=== PATIENT | female | born 1965 | race Caucasian/White ===

== ENCOUNTER → 2018-06-16 12:06 | Outpatient (CLI) | payer SELFPAY ==
--- NOTE | 2018-06-16 12:19 | RAD_ITS ---
STUDY: X-RAY - THORACIC SPINE REASON FOR EXAM: Female, 53 years old. Left-sided upper back pain TECHNIQUE: 3 view(s) of the thoracic spine were obtained. COMPARISON: MRI thoracic spine of May 31, 2014 FINDINGS: Normal kyphosis of the thoracic spine. There is no substantial scoliosis. There is multilevel endplate spondylosis of the thoracic vertebrae. There is multilevel disc space narrowing of the thoracic spine. Degree of disc space narrowing and spondylosis increased since prior MRI. The soft tissue structures are unremarkable. RAD/Thoracic Spine 3 Views IMPRESSION: Multilevel degenerative disc disease and spondylosis, worse since the prior MRI of 2014 Electronically Signed: Antony Ventura MD at 7:55 EST , Service support ,
== END ==
PROVIDERS: Family Provider Internal Medicine; PCP Internal Medicine; Visit Provider Internal Medicine
DX: R10.9 Unspecified abdominal pain (principal)
CPT/HCPCS: 72072

== ENCOUNTER → 2018-06-23 17:05 | Outpatient (CLI) | payer SELFPAY ==
--- NOTE | 2018-06-23 17:10 | CT_ITS ---
STUDY: CT ABDOMEN AND PELVIS WITHOUT CONTRAST REASON FOR EXAM: Female, 53 years old. Left flank pain RADIATION DOSAGE (If Supplied By Facility): CTDIvol = ( 14.80 ) mGy, DLP = ( 740.85 ) mGycm TECHNIQUE: Transaxial images were obtained from the dome of the diaphragm to the symphysis pubis without oral contrast, and without intravenous contrast. Sagittal and coronal images were reconstructed. Individualized dose optimization techniques were used for this CT. COMPARISON: None. FINDINGS: The lung bases are clear. The liver is normal. No dilated intrahepatic biliary radicles. The gallbladder is normal with no calcifications within it. There is no pericholecystic fluid collection or streakiness The spleen is normal. The pancreas is normal. Both adrenals are normal. The kidneys are normal with no masses, calculi or hydronephrosis The stomach is normal. There is no bowel distention, acute appendicitis or diverticulitis. No constricting lesions are seen in large bowel. The abdominal wall is intact with no hernias. There is no ascites or any free intraperitoneal air. No indication of epiploic appendagitis The vascular structures in the retroperitoneum are normal. There is no retrocrural, retroperitoneal or mesenteric adenopathy. Multilevel degenerative changes of the lumbosacral spine. The urinary bladder is normal.--The uterus is normal. There are no abnormal adnexal masses.. There is no inguinal or pelvic adenopathy. There is no inguinal hernia. . CT/Abdomen/Pelvis without Cont IMPRESSION: No acute findings in the abdomen or pelvis. Specifically there is no acute appendicitis or diverticulitis and no hydronephrosis or renal calculi Electronically Signed: Jadon Leo MD at 7:51 EST Tel , Service support ,
== END ==
LOC: CT 17:08
PROVIDERS: Family Provider Internal Medicine; PCP Internal Medicine; Referring Provider Internal Medicine; Visit Provider Internal Medicine
DX: R10.9 Unspecified abdominal pain (principal)
CPT/HCPCS: 74176

== ENCOUNTER → 2018-07-18 16:53 | Outpatient (CLI) | payer SELFPAY ==
--- NOTE | 2018-07-18 17:30 | MRI_ITS ---
STUDY: MRI THORACIC SPINE WITHOUT CONTRAST REASON FOR EXAM: Female, 53 years old. Left flank pain and left back pain for 5 years TECHNIQUE: Standardized fat and water weighted pulse sequences were obtained in the sagittal and axial planes. COMPARISON: Radiographs 06/16/2018 FINDINGS: Normal kyphosis of the thoracic spine. There is no substantial scoliosis. T1-2, T2-3, T3-4, T4-5, T5-6, T7-8, T8-9, T9-10: Normal endplates. Normal disc hydration, heights and morphology of the corresponding intervertebral discs. Normal central canal and intervertebral neural foramina at the corresponding levels. At T6-7, disc osteophyte complex is present with mild central canal stenosis. At T10-11, disc osteophyte complex is present with mild central canal stenosis. At T11-12, disc osteophyte complex is present without compressive sequelae. Syringohydromyelia is noted. This measures 3 mm in width and is located in the central cord extending from the T6-7 level to the T8 level. No associated cord expansion. A second syrinx is identified extending from the T11 level to the T12-L1 level measuring up to 2 mm in width without expansion. Normal conus medullaris that terminates at the L1 level. The soft tissue structures are unremarkable. 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 Consider correlation with postcontrast images to characterize further. Multilevel degenerative disease as described. No evidence of nerve root impingement. Electronically Signed: Juan F Gonzalez MD at 22:35 EST Tel , Service support ,
== END ==
LOC: MRI 16:56
PROVIDERS: Family Provider Internal Medicine; PCP Internal Medicine; Referring Provider Internal Medicine; Visit Provider Internal Medicine
DX: R10.9 Unspecified abdominal pain (principal)
CPT/HCPCS: 72146

== ENCOUNTER → 2018-09-30 | Outpatient (CLI) | payer OTHER, SELFPAY ==
[2017-06-09 12:10] VITALS: BMI 38.0
--- NOTE | 2018-09-30 10:27 | EKG12_ITS ---
Test Reason : PRE OP Blood Pressure : / mmHG Vent. Rate : 064 BPM Atrial Rate : 064 BPM P-R Int : 192 ms QRS Dur : 084 ms QT Int : 408 ms P-R-T Axes : 058 -04 023 degrees QTc Int : 420 ms Normal sinus rhythm Normal ECG Confirmed by DMITRY MCCLAIN ([id number]), editor publications JEN CORCORAN ([id number]) on 10/02/2018 3:03:06 PM Referred By: Dipak Smith Confirmed By:EAN MCCLAIN
[2018-09-30 11:39] LABS: Hematocrit 40.8 % (37-47); Hemoglobin 13.5 g/dl (12.0-15.0); Mean Corp Hgb Conc 33.1 g/gl (32-36); Mean Corpuscular Hgb 29.7 pg (27.0-32.0); Mean Corpuscular Volume 89.9 fL (81-99); Mean Platelet Vol. 10.8 fl (6.2-12.0); Platelet Count 277 K/mm3 (150-450); RBC Distribution Width CV 12.7 % (11.6-14.6); RBC Distribution Width SD 41.1 fl (35.1-43.9); Red Blood Count 4.54 M/mm3 (4.2-5.4); Scan Indicated on CBC? Y/N NO; White Blood Count 6.7 K/mm3 (4.4-11.0)
[2018-09-30 11:54] LABS: Anion Gap 6 (5-15); BUN 13 mg/dL (7-18); BUN/Creat Ratio 15.9 RATIO (10-20); Calcium,Total 8.7 mg/dL (8.5-10.1); Chloride 107 mmol/L (98-107); Creatinine, Serum 0.82 mg/dL (0.55-1.02); EST Glomerular Filtration Rate 77 mL/min (>60); Est Glom Filt Rate - Afr Amer 93 mL/min (>60); Glucose 78 mg/dL (74-106); Potassium 4.2 mmol/L (3.5-5.1); Sodium Level 143 mmol/L (136-145)
== END | disposition home or self-care (01) ==
LOC: LAB 10:13
PROVIDERS: Family Provider Internal Medicine; PCP Internal Medicine; Referring Provider Physician Assistant Surgical; Visit Provider Physician Assistant Surgical
DX: Z01.818 Encounter for other preprocedural examination (principal); Z01.810 Encounter for preprocedural cardiovascular examination
CPT/HCPCS: 36415; 80048; 85027; 93005

== ENCOUNTER → 2019-01-01 | Outpatient (CLI) | payer OTHER, SELFPAY ==
--- NOTE | 2019-01-01 10:28 | MRI_ITS ---
STUDY: MRI THORACIC SPINE WITH AND WITHOUT CONTRAST REASON FOR EXAM: Female, 53 years old. Follow-up syringomyelia. TECHNIQUE: 18 IV Dotarem was administered for the contrast portion of the examination. Standardized fat and water weighted pulse sequences were obtained in the sagittal and axial planes. COMPARISON: July 18, 2018. FINDINGS: Nonenhancing unchanged size thin syrinx extending from the T5-T8 levels with additional T10-L1 component. Conus medullaris terminates at the L1 level. No new abnormal cord signal. No enhancing vertebral body lesions. No acute fracture, dislocation or osseous destruction. Slightly exaggerated thoracic kyphosis. No significant scoliosis. T1-2, T2-3, T3-4, T4-5, T5-6, T7-8, T8-9, T9-10: No central canal narrowing. No significant neural from narrowing. Mild endplate spondylosis. Mild disc desiccation. T6-7 disc osteophyte complex with mild central canal narrowing. T10-11 disc osteophyte complex with mild central canal narrowing. T11-12 disc osteophyte complex without central canal narrowing. Normal mediastinum. Normal soft tissue structures. MRI/Spine Thoracic W/WO Contrast IMPRESSION: Nonenhancing multisegment thin syrinx Unchanged intervertebral disc disease/degenerative findings Electronically Signed: Phuc Spivey DO at 12:33 EDT Tel , Service support ,
== END | disposition home or self-care (01) ==
LOC: MRI 09:57
PROVIDERS: Family Provider Internal Medicine; PCP Internal Medicine; Referring Provider Neurological Surgery; Visit Provider Neurological Surgery
DX: G95.0 Syringomyelia and syringobulbia (principal)
CPT/HCPCS: 72157; A9575

== ENCOUNTER 2019-06-21 16:12 | Emergency (ER) | payer OTHER, SELFPAY ==
[2019-06-21 16:13] VITALS: BP 144/107; PULSE 100; RESP 16; TEMP 36.6; O2SAT 98; BMI 39.8
--- NOTE | 2019-06-21 16:35 | RAD_ITS ---
STUDY: X-RAY CHEST REASON FOR EXAM: Female, 54 years old. cough, cold symptoms TECHNIQUE: PA and lateral views of the chest. COMPARISON: None. FINDINGS: The lungs are clear and expanded. There is no demonstrated pleural abnormality. Normal size heart. Normal mediastinum and sloan. Normal visualized pulmonary arteries. Normal visualized aortic arch and descending thoracic aorta. There are diffuse degenerative changes of the visualized thoracic spine. Normal visualized ribs, clavicles, and shoulders. There is no demonstrated abnormality of the visualized soft tissue structures of the upper abdomen. RAD/Chest PA and Lateral IMPRESSION: Degenerative changes, as described above. No demonstrated acute cardiopulmonary process. Electronically Signed: Ranjit Davis MD at 17:04 EST , Service support ,
[2019-06-21 16:39] VITALS: BP 144/107; PULSE 100; RESP 16; TEMP 36.6; O2SAT 98
--- NOTE | 2019-06-21 17:13 | ED.DCSUM_ITS ---
- ER Visit Summary Date of Service: 06/21/19 Chief Complaint: Cough History of Present Illness: The patient is a 54 F with a cough for 3 days. Dry. Ribs ache. No fevers, but she does have chills. History of similar symptoms with bronchitis. No history of heart disease or PE. Physical Examination: Afebrile and vital signs unremarkable except for blood pressure 144/107. No acute distress. Lung sounds diminished. Heart regular. Extremities nontender. Skin normal. Test Results: X-rays showed no acute process. Emergency Department Course and Treatment: I suspect this is infectious, likely viral. She was given a pocket prescription for a Z-Eliot if her symptoms persist for a week. She was also given albuterol and Tessalon Perles. Follow-up with primary care for recheck. Treatment Plan: As above Disposition: Discharge Impression: 1. Bronchitis This note was generated with [employer] dictation software. It may contain incorrect words, spelling, and punctuation that were not noted in review of the chart prior to signing ED Disposition - Plan for ED Patient: Referrals: Ivon Solorzano DO [Primary Care Provider] -
--- NOTE | 2019-06-21 17:19 | ED.DEP ---
ED Disposition - Plan for ED Patient: Instructions: BRONCHITIS, Antiobiotic Treatment (Adult) Prescriptions: Azithromycin [Zithromax Z-Eliot] 250 mg PO UD #1 box Prescription Printed Referrals: Ivon Solorzano DO [Primary Care Provider] -
[2019-06-21 17:35] VITALS: BP 145/80; PULSE 99; RESP 18; O2SAT 97
== END 2019-06-21 17:36 | disposition home or self-care (01) ==
LOC: ED 16:32
PROVIDERS: Emergency Provider Emergency Medicine; PCP Internal Medicine
DX: J40 Bronchitis, not specified as acute or chronic (principal); Z79.899 Other long term (current) drug therapy
CPT/HCPCS: 71046; 99283

== ENCOUNTER → 2019-09-05 | Outpatient (CLI) | payer OTHER, SELFPAY ==
[2019-09-05 15:51] LABS: Potassium 4.9 mmol/L (3.5-5.1)
== END | disposition home or self-care (01) ==
LOC: LABSPEC 15:23
PROVIDERS: PCP Internal Medicine; Referring Provider Internal Medicine; Visit Provider Internal Medicine
DX: E87.5 Hyperkalemia (principal)
CPT/HCPCS: 84132

== ENCOUNTER 2022-02-02 06:35 | Emergency (ER) | payer SELFPAY ==
[2022-02-02 06:38] VITALS: BP 151/81; PULSE 85; RESP 16; TEMP 36.3; O2SAT 100; BMI 38.1
--- NOTE | 2022-02-02 06:56 | VDLE_ITS ---
Reason For Study: swelling RIGHT GSV is normal. CFV is compressible, spontaneous, phasic, competent and demonstrates normal augmentation. FV is compressible, spontaneous, phasic, competent and demonstrates normal augmentation. POP V is compressible, spontaneous, phasic, competent and demonstrates normal augmentation. T/P Trunk is compressible. PTV is compressible. RT PerV is compressible. Procedure This is a venous duplex using B-mode, color flow and spectral Doppler. Exam performed portable in ED. The exam was abbreviated due to the COVID 19 protocol. The exam was diagnostic. A preliminary report was called and/or faxed to ED RN. VL/Venous Duplex US, Unilateral Interpretation Summary Deep veins of the right lower extremity are patent and compressible segmentally . There is no evidence of right lower extremity deep vein thrombosis. The right great sapheno us vein appears patent and compressible segmentally. Ordering Physician: Tori Soliz Performed By: Jose M Cartwright RVT
--- NOTE | 2022-02-02 06:56 | RAD_ITS ---
STUDY: X-RAY - RIGHT TIBIA AND FIBULA REASON FOR EXAM: Female, 56 years old patient with leg pain without known trauma. TECHNIQUE: AP and lateral view(s) of the tibia and fibula were obtained. COMPARISON: None. FINDINGS: Normal visualized tibia. Normal visualized fibula. There is no demonstrated acute fracture. There is a small plantar calcaneal spur. The soft tissue structures are unremarkable. RAD/Tibia & Fibula 2 Views IMPRESSION: No evidence for acute fracture or dislocation. Electronically Signed: Anna Foreman MD at 7:41 EDT ,
--- NOTE | 2022-02-02 06:58 | ED.VIS.LOWEX ---
HPI History of Present Illness Chief Complaint: Lower Extremity Injury Informant: patient Narrative Narrative: Patient is a 56-year-old female with history of migraines and colitis presenting with right lower extremity pain, swelling and discomfort. She states she has had discomfort that she describes as a tingling and thumping sensation for the past few months. Its worse at night. Does not seem to be affected by exertion. She also feels at night that her lower leg and foot are cold on the right side compared to the left. She denies associated chest pain, shortness of breath or difficulty breathing. While taking a bath last night she noticed that she had a blotchy intermittent red rash going up her leg. This is what finally triggered her to come to the ER. She denies any history of DVT or PE. Denies any tobacco use or history of it. Does have a family history of blood clots. Denies any chest pain, shortness of breath, fever, chills or unintentional weight change. Has had night sweats but feels that those are normal for her. No other complaints at this time. Denies any medications, foods or other environmental exposures. [facility] Medical History Anemia GERD (gastroesophageal reflux disease) Migraines Severe headache Shoulder pain Home Medications colestipol 1 gram tablet 1 gm PO DAILY 10/25/13 [History Last Taken Unknown] minocycline 100 mg capsule 100 mg PO DAILY PRN ROACIA 10/25/13 [History Last Taken Unknown] propranolol 80 mg capsule,24 hr,extended release 80 mg PO DAILY 10/25/13 [History Last Taken Unknown] Allergy/AdvReac Type Severity Reaction Status Date / Time No Known Allergies Allergy Verified 10/25/13 14:26 Social History Smoking Status: Never smoker ROS ROS ED Constitutional Constitutional ED: Denies chills or fever(s) Eyes Eyes: Denies change in vision Cardiovascular Cardiovascular: Denies chest pain or palpitations Respiratory/Chest Respiratory/Chest: Denies cough Gastrointestinal Gastrointestinal: Denies abdominal pain or nausea Musculoskeletal Musculoskeletal: Reports other Details: right lower leg pain ; Denies arthralgias Integumentary Denies rash Neurologic Neurologic: Reports paresthesias; Denies headache(s) or weakness Psychiatric Psychiatric: Denies anxiety EXAM Physical Exam Const Vital Signs: 02/02/22 06:38 02/02/22 09:55 Temperature 97.3 F L Temperature Source Oral Pulse Rate 85 74 Respiratory Rate 16 16 Blood Pressure 151/81 H 152/97 H Blood Pressure Mean 104 Pulse Ox 100 98 Oxygen Delivery Method Room Air Positive well nourished and well developed General Appearance ED: well developed and NAD HEENT Reports moist mucous membranes Eyes PERRL Neck supple Resp normal respiratory effort and clear to auscultation bilaterally Cardio regular rate, regular rhythm and no murmurs Cardio Narrative: 2+ DP and PT pulses GI non-distended Extremity full ROM Extremity Narrative: Asymmetric swelling of the right calf. Tenderness palpation of the proximal anterior tibia. No palpable cords appreciated.Intact range of motion. Neuro oriented x3, moves all extremities and no sensory deficits noted Skin Skin Narrative: Faint blanching erythema scattered on the right medial calf and into the popliteal fossa MDM MDM MDM Narrative Medical decision making narrative: Patient is evaluated for right lower leg swelling and rash associated with it today. She also has some tingling of her leg. She appears nontoxic in no acute distress. She has good distal pulses. No signs of ischemia of the foot/leg. No overlying cellulitis. Venous duplex obtained which is negative for DVT or superficial thrombophlebitis. Basic labs including CBC, PT/INR and BMP are normal. X-ray of the tib/fibula 2 views inter by myself as well as radiology negative for any acute process. Patient counseled that the cause of her transient rash and leg symptoms is not clear however I think she stable to follow-up outpatient. She is given a referral to vascular. She is counseled return precautions. She verbalizes agreement understands plan. Instructed to take Benadryl at home as needed for the rash as it does sound like it could have been hives as well as ibuprofen as needed for pain/discomfort. Did discuss using compression stockings throughout the day to see if that helps with her symptoms. Lab Data Attestation: I reviewed the patient's lab results. Labs: Laboratory Results - last 24 hr 02/02/22 02/02/22 02/02/22 07:15 07:15 07:15 WBC 6.9 RBC 4.64 Hgb 13.7 Hct 41.3 MCV 89.0 MCH 29.5 MCHC 33.2 RDW Std Deviation 41.7 RDW Coeff of Leandro 12.7 Plt Count 220 MPV 10.8 Immature Gran % (Auto) 0.300 Neut % (Auto) 65.8 Lymph % (Auto) 25.1 Toole % (Auto) 6.5 Eos % (Auto) 1.9 Baso % (Auto) 0.4 Absolute Neuts (auto) 4.6 Absolute Lymphs (auto) 1.74 Nucleated RBC % 0 PT 12.7 INR 1.0 Sodium 142 Potassium 4.1 Chloride 110 H Carbon Dioxide 25.0 Anion Gap 7 BUN 17 Creatinine 0.88 Estim Creat Clear Calc 57.64 Est GFR (MDRD) Af Amer 85 Est GFR (MDRD) Non-Af 70 BUN/Creatinine Ratio 19.3 Glucose 108 H Calcium 8.9 Radiography Diagnostic Testing: Clinical Impression(s) from Imaging Studies Tibia/Fibula X-Ray 02/02/22 06:56 IMPRESSION: No evidence for acute fracture or dislocation. Electronically Signed: Anna Foreman MD at 7:41 EDT Reading Location ID and State: [address] [place] [address] , Service support , Discharge Plan Triage Chief Complaint: Lower Extremity Injury ED Provider: Tori Soliz Dx/Rx/DC Orders Clinical Impression: Localized swelling of right lower leg, Right leg paresthesias Instructions: ED Erythema, ED Peripheral Edema, Unilateral, ED Paraesthesias Prescriptions: No Action minocycline 100 MG capsule 100 mg PO DAILY PRN (Reason: ROACIA) Label Comments: FOR ACNE propranolol 80 MG capsule 80 mg PO DAILY Label Comments: FOR MIGRAINE PREVENTION colestipol 1 GM tablet 1 gm PO DAILY Label Comments: FOR GAS Primary Care Provider: Ivon Solorzano Referrals: Phuc Mast MD [Med Staff - Active Staff] - 3-5 Days if not improving Ivon Solorzano DO [Primary Care Provider] - Activity Restrictions/Additional Instructions: Try wearing basic compression stockings to see if this helps with your symptoms. We have for the rash she can try taking Benadryl. Anti-inflammatory medication such as ibuprofen might be helpful for the pain. The exact cause of your swelling and skin changes is not clear however I think you are safe to go home at this time. Disposition Disposition: Home, Self Care Discharge Date/Time: 02/02/22 09:57
[2022-02-02 07:32] LABS: Absolute Lymphocyte Count 1.74 X10^3/uL (0.83-4.51); Absolute Neutrophil Count 4.6 X10^3/uL (2.0-7.7); Basophil# 0.03 X10^3/uL; Basophil% 0.4 % (0-1); Eosinophil# 0.13 X10^3/uL; Eosinophils% 1.9 % (0-5); Hematocrit 41.3 % (37-47); Hemoglobin 13.7 g/dL (12.0-15.0); Lymphocyte # 1.74 X10^3/ul (0.83-4.51); Lymphocyte % 25.1 % (19-41); Mean Corp Hgb Conc 33.2 g/dL (32-36); Mean Corpuscular Hgb 29.5 pg (27.0-32.0); Mean Platelet Vol. 10.8 fl (6.2-12.0); Monocyte# 0.45 X10^3/uL; Monocyte% 6.5 % (0-10); NRBC Flagged by Analyzer 0 % (0-5); Neutrophil # 4.57 X10^3/uL (2.7-7.7); Neutrophil % 65.8 % (47-70); Platelet Count 220 K/mm3 (150-450); RBC Distribution Width CV 12.7 % (11.6-14.6); RBC Distribution Width SD 41.7 fl (35.1-43.9); Red Blood Count 4.64 M/mm3 (4.2-5.4); White Blood Count 6.9 K/mm3 (4.4-11.0)
[2022-02-02 07:42] LABS: Anion Gap 7 (5-15); BUN 17 mg/dL (7-18); BUN/Creat Ratio 19.3 RATIO (10-20); Calcium,Total 8.9 mg/dL (8.5-10.1); Chloride 110 mmol/L (98-107); Creatinine, Serum 0.88 mg/dL (0.55-1.02); EST Glomerular Filtration Rate 70 mL/min (>60); Est Glom Filt Rate - Afr Amer 85 mL/min (>60); Estimated Creatinine Clearance 57.64 ml/min; Glucose 108 mg/dL (74-106); Potassium 4.1 mmol/L (3.5-5.1); Sodium Level 142 mmol/L (136-145)
[2022-02-02 08:02] LABS: Prothrombin Time (Protime)PT. 12.7 SECONDS (11.7-14.9)
[2022-02-02 09:55] VITALS: BP 152/97; PULSE 74; RESP 16; O2SAT 98
== END 2022-02-02 09:57 | disposition home or self-care (01) ==
PROVIDERS: Emergency Provider Emergency Medicine; PCP Internal Medicine; Visit Provider Emergency Medicine
DX: M79.89 Other specified soft tissue disorders (principal); M79.604 Pain in right leg; R20.2 Paresthesia of skin; R21 Rash and other nonspecific skin eruption; K21.9 Gastro-esophageal reflux disease without esophagitis; Z79.899 Other long term (current) drug therapy
CPT/HCPCS: 73590; 80048; 85025; 85610; 93971; 99283; A4216

== ENCOUNTER 2022-12-15 12:34 | Emergency (ER) | payer OTHER, SELFPAY ==
[2022-12-15 12:35] VITALS: BP 184/95; PULSE 90; RESP 16; TEMP 36.9; O2SAT 99; BMI 39.6
[2022-12-15] MEDS: HYDROcodone Bitartrate/Apap 5/325 Tablet PO (15:04)
--- NOTE | 2022-12-15 15:15 | RAD_ITS ---
STUDY: X-RAY - BILATERAL RIBS WITH CHEST REASON FOR EXAM: Female, 57 years old. Right sided rib pain following a fall. TECHNIQUE - RIBS: 8 view(s) of the ribs. TECHNIQUE - CHEST: Single PA view of the chest. COMPARISON: Comparison is made with prior study June 21, 2019. FINDINGS - RIBS : Normal visualized ribs without a demonstrated fracture. FINDINGS - CHEST: Limited inspiratory effort. Increased markings at the lung bases suggestive of bibasilar linear atelectasis. There is no demonstrated pleural abnormality. Normal size heart. Normal mediastinum and sloan. Normal visualized pulmonary arteries. There is atherosclerotic tortuosity of the aortic arch and descending thoracic aorta. There are diffuse degenerative changes of the visualized thoracic spine. Normal visualized ribs, clavicles, and shoulders. There is no demonstrated abnormality of the visualized soft tissue structures of the upper abdomen. RAD/Ribs Vinod Min 4V w/PA Chest IMPRESSION: RIBS: Normal x-ray examination of the bilateral ribs. CHEST: Findings suggestive of bibasilar linear atelectasis. Electronically Signed: Juanito Tate MD at 15:37 EDT ,
--- NOTE | 2022-12-15 17:29 | EDS_ITS ---
HPI History of Present Illness Chief Complaint: Fall Onset/Context/Timing Onset: Days (3) Mechanism/Context: Fall and Trip Quality of Pain: Sharp, Aching and Burning Location: Bilateral chest Worsened by: Movement, coughing Relieved by: Nothing Associated Symptoms Associated Symptoms: Negative for Parasthesias, Weakness, Loss of function, Inability to ambulate, Loss of consciousness or Amnesia Narrative Narrative: Patient presents with pain in her chest that began 3 days ago after a fall. Patient states she tripped and fell forward. Patient states she landed directly onto her chest. Patient states she feels some crackling in her chest at times. Patient describes the pain as sharp, aching, and burning. Patient states her pain is worse with moving and coughing. Patient denies any paresthesias or weakness. Patient states her pain is worse with deep breathing. Patient denies any shortness of breath however. Patient denies any fevers or chills. PFSH PFS Medical History Anemia GERD (gastroesophageal reflux disease) Migraines Right knee meniscal tear Severe headache Shoulder pain Home Medications colestipol 1 gram tablet 1 g PO DAILY 10/25/13 [History Last Taken Unknown] minocycline 100 mg capsule 100 mg PO DAILY PRN ROACIA 10/25/13 [History Last Taken Unknown] propranolol 80 mg capsule,24 hr,extended release 80 mg PO DAILY 10/25/13 [History Last Taken Unknown] hydrocodone-acetaminophen 5-325mg 5mg-325mg 1 tab PO Q6H PRN PRN Pain 3 days #10 TABLETS 12/15/22 [Rx Last Taken Unknown] Allergy/AdvReac Type Severity Reaction Status Date / Time No Known Allergies Allergy Verified 12/15/22 12:36 Family History Other Arthritis Cancer Colon cancer Diabetes High cholesterol Hypertension Surgical History (Updated 12/15/22 @ 17:[address] Phuc Mario DO) H/O right knee surgery History of excision of pilonidal cyst Hx of tonsillectomy Social History Smoking Status: Never smoker ROS ROS ED Constitutional Constitutional ED: Denies chills or fever(s) Eyes Eyes: Denies blurry vision or change in vision ENT ENT ED: Denies rhinorrhea or sore throat Cardiovascular Cardiovascular: Reports chest pain; Denies palpitations Respiratory/Chest Respiratory/Chest: Denies cough or dyspnea Gastrointestinal Gastrointestinal: Denies nausea or vomiting Genitourinary Genitourinary ED: Reports urinary frequency; Denies dysuria or hematuria Musculoskeletal Musculoskeletal: Reports back pain; Denies neck pain Integumentary Denies abscess or rash Neurologic Neurologic: Denies headache(s) or weakness Allergic/Immunologic Allergic/Immunologic ED: Denies mouth swelling or urticaria EXAM Physical Exam Const Vital Signs: 12/15/22 12:35 12/15/22 14:06 Temperature 98.4 F Temperature Source Temporal Pulse Rate 90 Respiratory Rate 16 Respiratory Effort Normal Respiratory Depth Shallow Blood Pressure 184/95 H Blood Pressure Mean 124 Pulse Ox 99 Oxygen Delivery Method Room Air Room Air Positive well nourished and well developed General Appearance ED: well developed and NAD HEENT atraumatic Chest Wall Chest Narrative: There is diffuse tenderness over the anterior chest bilaterally. There is no bony crepitance or step-off. There is no edema or ecchymosis noted over the upper chest. Resp normal respiratory effort and clear to auscultation bilaterally Cardio regular rhythm Rate: regular rate GI non-tender and non-distended Extremity normal to inspection and full ROM Neuro oriented x3, CN's II-XII intact bilaterally, moves all extremities, no focal motor deficits and no sensory deficits noted Lety Coma Scale: document GCS findings Spontaneous Obeys Commands Oriented 15 Sensorium / Orientation: alert Motor Exam: strength 5/5 throughout Psych mental status grossly normal MDM MDM MDM Narrative Medical decision making narrative: Differential diagnosis includes rib fracture, pneumothorax, pneumonia, chest wall contusion. X-rays of the bilateral ribs will be obtained to assess for rib fracture or pneumothorax. Radiography Diagnostic Testing: Clinical Impression(s) from Imaging Studies Ribs w/Chest X-Ray 12/15/22 15:15 IMPRESSION: RIBS: Normal x-ray examination of the bilateral ribs. CHEST: Findings suggestive of bibasilar linear atelectasis. Electronically Signed: Juanito Tate MD at 15:37 EDT , X-rays of the bilateral ribs were obtained. There are 9 views. On my independent interpretation, there is no acute rib fracture. There is no pneumothorax. There is no acute cardiopulmonary process noted. Radiologist also interpreted the x-rays and agrees. Treatment and Re-Evaluation Narrative: Patient was given a dose of Thurmont here. Patient was advised of her findings. Patient was given a prescription for a short course of Thurmont. Patient was i nstructed to take 10-15 deep breaths every hour while awake to prevent atelectasis and pneumonia. Patient was instructed to follow-up with her primary care physician in 5 to 7 days. Patient understood and was agreeable with the plan. All questions were answered. Discharge Plan Triage Chief Complaint: Fall ED Provider: Phuc Mario Dx/Rx/DC Orders Clinical Impression: Chest wall contusion, Fall Instructions: ED Chest Wall Contusion, ED Mechanical Fall Prescriptions: New hydrocodone-acetaminophen [hydrocodone-acetaminophen] 5-325 mg tablet 1 tab PO Q6H PRN PRN (Reason: Pain) 3 Days Qty: 10 0RF No Action minocycline 100 MG capsule 100 mg PO DAILY PRN (Reason: ROACIA) Patient Comments: FOR ACNE propranolol 80 MG capsule 80 mg PO DAILY Patient Comments: FOR MIGRAINE PREVENTION colestipol 1 GM tablet 1 g PO DAILY Patient Comments: FOR GAS Primary Care Provider: Arianne Crandall Referrals: Ivon Solorzano DO [Med Staff - Loan Inspector] - 5-7 Days Disposition Disposition: Home, Self Care Discharge Date/Time: 12/15/22 16:40
== END 2022-12-15 16:40 | disposition home or self-care (01) ==
LOC: ED 16:36
PROVIDERS: Emergency Provider Emergency Medicine; PCP Family Medicine; Visit Provider Emergency Medicine
DX: S20.213A Contusion of bilateral front wall of thorax, initial encounter (principal); W18.09XA Striking against other object with subsequent fall, initial encounter; Z79.899 Other long term (current) drug therapy
CPT/HCPCS: 71111; 99284; A4216

== ENCOUNTER → 2023-06-14 | Outpatient (CLI) | payer SELFPAY ==
[2023-06-14 14:24] LABS: Hematocrit 40.8 % (37-47); Hemoglobin 12.6 g/dL (12.0-15.0); Mean Corp Hgb Conc 30.9 g/dL (32-36); Mean Corpuscular Hgb 27.6 pg (27.0-32.0); Mean Corpuscular Volume 89.5 fL (81-99); Mean Platelet Vol. 10.8 fl (6.2-12.0); Platelet Count 230 K/mm3 (150-450); RBC Distribution Width CV 13.1 % (11.6-14.6); Red Blood Count 4.56 M/mm3 (4.2-5.4); White Blood Count 6.8 K/mm3 (4.4-11.0)
[2023-06-14 14:52] LABS: Anion Gap 3 (5-15); BUN 12 mg/dL (7-18); BUN/Creat Ratio 16.5 RATIO (10-20); Calcium,Total 8.7 mg/dL (8.5-10.1); Chloride 110 mmol/L (98-107); Creatinine, Serum 0.73 mg/dL (0.55-1.02); EST Glomerular Filtration Rate 87 mL/min (>60); Est Glom Filt Rate - Afr Amer 105 mL/min (>60); Glucose 91 mg/dL (74-106); Potassium 4.2 mmol/L (3.5-5.1); Sodium Level 138 mmol/L (136-145)
[2023-06-14 14:57] LABS: Hemoglobin A1c 5.8 % (3.8-5.6)
== END | disposition home or self-care (01) ==
PROVIDERS: PCP Internal Medicine; Referring Provider Physician Assistant; Visit Provider Physician Assistant
DX: Z01.818 Encounter for other preprocedural examination (principal); Z01.810 Encounter for preprocedural cardiovascular examination
CPT/HCPCS: 36415; 80048; 83036; 85027; 93005

== ENCOUNTER → 2023-07-04 | Outpatient (CLI) | payer SELFPAY ==
--- NOTE | 2023-07-04 12:40 | VDLE_ITS ---
Reason For Study: HX LT Medial Meniscus repair surgery RIGHT LEFT FV is compressible, spontaneous, phasic, GSV is normal. competent and demonstrates normal CFV is compressible, spontaneous, phasic, augmentation. competent, and demonstrates normal Procedure augmentation. This is a venous duplex using B-mode, color FV is compressible, spontaneous, phasic, flow and spectral Doppler. competent and demonstrates normal Exam performed in department. augmentation. The exam was diagnostic. POP V is compressible, spontaneous, and A preliminary report was called and/or faxed phasic. to Nomi Hendricks and Breanne Torres LPN at Dr. T/P Trunk is compressible. Jeanine's office. PTV is compressible. LT PerV is compressible. Acute deep vein thrombosis is noted in the Gastrocnemius V. It is dilated and NONCOMPRESSIBLE. VL/Venous Duplex US, Unilateral Interpretation Summary Acute deep vein thrombosis is noted in the right gastrocnemius vein. Ordering Physician: Amanda Penn Referring Physician: Ivon Solorzano M.D. Performed By: Aaron Freedman RVT
== END | disposition home or self-care (01) ==
PROVIDERS: PCP Internal Medicine; Referring Provider Physician Assistant; Visit Provider Physician Assistant
DX: S83.232D Complex tear of medial meniscus, current injury, left knee, subsequent encounter (principal); X58.XXXD Exposure to other specified factors, subsequent encounter
CPT/HCPCS: 93971

== ENCOUNTER 2023-08-12 12:51 | Outpatient (RCR) | payer OTHER, SELFPAY ==
[2023-08-12 14:08] LABS: International Normalized Ratio 1.1; Prothrombin Time (Protime)PT. 13.8 SECONDS (11.7-14.9)
== END 2023-08-14 01:14 | disposition home or self-care (01) ==
LOC: LAB 12:51
PROVIDERS: PCP Internal Medicine; Referring Provider Internal Medicine; Visit Provider Internal Medicine
DX: I82.409 Acute embolism and thrombosis of unspecified deep veins of unspecified lower extremity (principal)
CPT/HCPCS: 36415; 85610

== ENCOUNTER 2023-09-08 15:00 | Outpatient (RCR) | payer OTHER, SELFPAY ==
[2023-08-17 16:47] LABS: International Normalized Ratio 1.2; Prothrombin Time (Protime)PT. 15.4 SECONDS (11.7-14.9)
[2023-08-22 13:50] LABS: International Normalized Ratio 2.2; Prothrombin Time (Protime)PT. 24.2 SECONDS (11.7-14.9)
[2023-08-26 15:40] LABS: International Normalized Ratio 2.6; Prothrombin Time (Protime)PT. 27.6 SECONDS (11.7-14.9)
[2023-08-29 13:48] LABS: Prothrombin Time (Protime)PT. 30.9 SECONDS (11.7-14.9)
[2023-09-05 13:04] LABS: International Normalized Ratio 4.5
[2023-09-08 15:31] LABS: International Normalized Ratio 3.6; Prothrombin Time (Protime)PT. 35.7 SECONDS (11.7-14.9)
[2023-09-08 16:27] LABS: Color, Urine Brown (Yellow); Glucose, Dipstick Normal (Normal); Ketone-Dipstick 15 mg/dl (Negative); Leukocyte Esterase-Dipstick 25 /ul (Negative); Nitrite-Dipstick Negative (Negative); Occult Blood-Urine 250 /ul (Negative); Protein-Dipstick 500 mg/dl (Negative); Urine Bilirubin Dipstick Negative (Negative); Urine Clarity Turbid (Clear); Urine Urobilinogen Normal (Normal); Urine pH 6.5 (5.0 - 8.0)
== END 2023-09-13 23:50 | disposition home or self-care (01) ==
LOC: LAB 15:00
PROVIDERS: PCP Internal Medicine; Referring Provider Internal Medicine; Visit Provider Internal Medicine
DX: I82.409 Acute embolism and thrombosis of unspecified deep veins of unspecified lower extremity (principal); R31.9 Hematuria, unspecified
CPT/HCPCS: 36415; 81002; 85610; 87086

== ENCOUNTER 2023-09-11 11:29 | Emergency (ER) | payer OTHER, SELFPAY ==
[2023-09-11 11:31] VITALS: BP 148/107; PULSE 77; RESP 16; TEMP 36.6; O2SAT 99; BMI 44.4
--- NOTE | 2023-09-11 11:50 | CT_ITS ---
EXAM: CT ABDOMEN AND PELVIS WITHOUT INTRAVENOUS CONTRAST CLINICAL INDICATION: right flank pain TECHNIQUE: Helically acquired images were obtained of the abdomen and pelvis without intravenous contrast. This CT exam was performed using one or more of the following dose reduction techniques: automated exposure control, adjustment of the mA and/or kV according to patient size, and/or use of iterative reconstruction technique. COMPARISON: CT Abdomen Pelvis dated 06/23/2018 FINDINGS: LOWER THORAX: Small hiatal hernia. ABDOMEN: LIVER: Liver is enlarged measuring 22.5 cm in cephalocaudad dimension. GALLBLADDER AND BILE DUCTS: Normal. No calcified gallstones. No gallbladder distention or wall edema. No intra- or extrahepatic biliary ductal dilation. No inflammatory change of the gallbladder. PANCREAS: Normal. No focal cystic mass. SPLEEN: Normal. Normal size without focal cystic or solid mass. ADRENALS: Normal. No nodules. KIDNEYS AND URETERS: 1.6 cm mildly hyperdense rounded lesion within the lower pole renal sinus of the left kidney possibly representing a complex cyst. Follow-up renal ultrasound recommended. Mild distention of the right renal collecting system noted associated with mild right perinephric and periureteral edema. No evidence of an obstructing stone or mass. Appearance suggestive of recently passed stone. STOMACH AND BOWEL: Diverticulosis of the colon noted without evidence of acute diverticulitis. PELVIS: APPENDIX: Appendix is visualized and normal in appearance. BLADDER: Normal. REPRODUCTIVE: Unremarkable as visualized. No mass. ABDOMEN and PELVIS: INTRAPERITONEAL SPACE: Normal. No ascites or other fluid collection. No free air. BONES/JOINTS: No suspicious lytic or blastic abnormality. SOFT TISSUES: Normal. No discrete abdominal or pelvic wall hernia. VASCULATURE: Normal. Abdominal aorta is non-dilated. LYMPH NODES: Normal. No enlarged lymph nodes. CT/Abdomen/Pelvis without Cont IMPRESSION: 1. Mild distention of the right renal collecting system associated with mild right perinephric and periureteral edema likely related to a recently passed stone. 2. 16mm indeterminate left renal lesion. Recommend follow-up renal ultrasound. 3. Diverticulosis coli. 4. Normal appendix. Electronically Signed: Abhishek Paulino MD at 14:07 EDT ,
--- NOTE | 2023-09-11 11:51 | EX.ED.DYSGE1 ---
HPI History of Present Illness Chief Complaint: Flank Pain Narrative Narrative: 58-year-old female presenting with right flank pain. She states it started about 0 6:30 AM this morning. This was prior to eating or drinking anything. She describes the pain as sharp and knifelike. It is in the right posterior side of her back. It is seem to radiate into her right lower abdomen. Patient states that she has been on Eliquis initially for DVT and subsequently transferred over to Coumadin and she has been slightly supratherapeutic with the INR 3.2. Patient does state that she had her urine tested the other day and there was blood in the urine but her kidney function was noted to be normal. She does feel like she has had the chills. She has nausea. Patient denies any history of kidney stones. [facility] Medical History Anemia GERD (gastroesophageal reflux disease) Migraines Right knee meniscal tear Severe headache Shoulder pain Home Medications colestipol 1 gram tablet 1 g PO DAILY 10/25/13 [History Last Taken Unknown] minocycline 100 mg capsule 100 mg PO DAILY PRN ROACIA 10/25/13 [History Last Taken Unknown] amlodipine 2.5 mg tablet 2.5 mg PO DAILY 09/11/23 [History Last Taken Unknown] ondansetron 4 mg disintegrating tablet 4 mg PO Q8H PRN PRN Nausea #14 tabs 09/11/23 [Rx Last Taken Unknown] oxycodone 5 mg tablet 5 mg PO Q6H PRN pain 3 days #12 tabs 09/11/23 [Rx Last Taken Unknown] propranolol 80 mg tablet 80 mg PO DAILY 09/11/23 [History Last Taken Unknown] warfarin 1 mg tablet 1 mg PO UD 09/11/23 [History Last Taken Unknown] warfarin 2 mg tablet 2 mg PO UD 09/11/23 [History Last Taken Unknown] Allergy/AdvReac Type Severity Reaction Status Date / Time No Known Allergies Allergy Verified 09/11/23 11:34 Family History Other Arthritis Cancer Colon cancer Diabetes High cholesterol Hypertension Surgical History H/O right knee surgery History of excision of pilonidal cyst Hx of tonsillectomy Social History Smoking Status: Never smoker ROS ROS ED Constitutional Constitutional ED: Reports chills and sweats; Denies fever(s) Eyes Eyes: Denies blurry vision or change in vision ENT ENT ED: Denies ear pain or sore throat Cardiovascular Cardiovascular: Denies chest pain, palpitations or racing heartbeat Respiratory/Chest Respiratory/Chest: Denies cough, dyspnea or sputum Gastrointestinal Gastrointestinal: Reports abdominal pain, nausea and vomiting; Denies constipation or diarrhea Genitourinary Genitourinary ED: Reports hematuria; Denies dysuria or urinary frequency Musculoskeletal Musculoskeletal: Reports back pain; Denies arthralgias, myalgias or neck pain Integumentary Denies abscess, Abrasions or rash Neurologic Neurologic: Denies headache(s), paresthesias or weakness Psychiatric Psychiatric: Denies anxiety, depression, suicidal ideation or suicidal thoughts Endocrine Endocrinology: Denies polydipsia or polyuria EXAM Physical Exam Const Vital Signs: 09/11/23 11:31 09/11/23 13:30 Temperature 98 F Temperature Source Temporal Pulse Rate 77 74 Respiratory Rate 16 16 Blood Pressure 148/107 H 146/77 H Blood Pressure Mean 120 100 Pulse Ox 99 Oxygen Delivery Method Room Air Positive well nourished General Appearance ED: NAD and other HEENT Reports moist mucous membranes Eyes PERRL and EOMs intact bilaterally Neck no lymphadenopathy Chest Wall inspection of chest normal Resp normal respiratory effort and clear to auscultation bilaterally Cardio regular rate and regular rhythm GI GI Narrative: Negative Graff sign. Back/Spine General Back: CVA tenderness right Neuro oriented x3 and CN's II-XII intact bilaterally Sensorium / Orientation: alert Motor Exam: strength 5/5 throughout Psych mental status grossly normal MDM MDM MDM Narrative Medical decision making narrative: Patient presenting with right flank pain. She states she has had blood in her urine. Differential includes UTI, pyelonephritis, urolithiasis, kidney stone, cholelithiasis, pancreatitis. No McBurney point tenderness. This did not follow any meal. Will go from sleep this morning. She states her blood in her urine. They were testing with normal renal function. CBC will be obtained to assess white blood cell count, hemoglobin, platelets. BMP to assess renal function, electrolytes, glucose. Liver function panel to assess liver enzymes. Lipase assessment otitis. IV line was established patient given morphine, Zofran. INR will be obtained to assess for coagulopathy. CT of the abdomen pelvis will be obtained to rule out kidney stone. CBC shows mild white blood cell count of 12.3. Hemoglobin stable at 13.1. INR. Slightly subtherapeutic at 1.8 however had been supratherapeutic prior. On reevaluation the patient's pain is well-controlled and she is resting comfortably.. Creatinine 1.23 and slightly elevated over baseline. LFTs are normal. Urinalysis negative for infection but does show blood. CT of the abdomen pelvis without contrast shows possible passed kidney stone as the right renal collecting system is dilated. There is also incidental finding of a complex left renal cyst which is will need follow-up by ultrasound in the future. Patient does not have any pain here. This is consistent with the patient's symptoms. I will discharge the patient home with Zofran and oxycodone for pain. She will be given urology follow-up. Return precautions were discussed. I also recommended she speak to her PCP again regarding her Coumadin and INR. Impression: 1. subtherapeutic INR 2. Right flank pain 3. Hematuria 4. Passed kidney stone 5. Left renal cyst/complex Lab Data Attestation: I reviewed the patient's lab results. Labs: Laboratory Results - last 24 hr 09/11/23 09/11/23 09/11/23 11:45 11:55 12:12 WBC 12.3 H RBC 4.79 Hgb 13.1 Hct 41.5 MCV 86.6 MCH 27.3 MCHC 31.6 L RDW Std Deviation 41.2 RDW Coeff of Leandro 13.2 Plt Count 265 MPV 10.7 Immature Gran % (Auto) 0.900 Neut % (Auto) 85.1 H Lymph % (Auto) 9.1 L [place] % (Auto) 3.7 Eos % (Auto) 0.6 Baso % (Auto) 0.6 Absolute Neuts (auto) 10.5 H Absolute Lymphs (auto) 1.11 Nucleated RBC % 0 PT 20.8 H INR 1.8 Sodium 142 Potassium 4.1 Chloride 112 H Carbon Dioxide 26.0 Anion Gap 4 L BUN 13 Creatinine 1.23 H Estim Creat Clear Calc 59.14 Est GFR (MDRD) Af Amer 57 L Est GFR (MDRD) Non-Af 47 L BUN/Creatinine Ratio 10.6 Glucose 138 H Calcium 8.9 Total Bilirubin 0.30 Direct Bilirubin 0.08 AST < 3 L ALT 22 Alkaline Phosphatase 85 Total Protein 7.4 Albumin 3.8 Globulin 3.6 Lipase 53 Urine Color Yellow Urine Clarity Clear Urine pH 6.0 Ur Specific Aldie 1.010 Urine Protein 15 H Urine Glucose (UA) Normal Urine Ketones Negative Urine Occult Blood 250 H Urine Nitrite Negative Urine Bilirubin Negative Urine Urobilinogen Normal Ur Leukocyte Esterase 100 H Urine RBC 5-10 SEEN Urine WBC 0 SEEN Ur Squamous Epith Cells 0-5 SEEN Urine Bacteria 0 SEEN Urine Mucus 0 SEEN Radiography Diagnostic Testing: Clinical Impression(s) from Imaging Studies Abdomen/Pelvis CT 09/11/23 11:50 IMPRESSION: 1. Mild distention of the right renal collecting system associated with mild right perinephric and periureteral edema likely related to a recently passed stone. 2. 16mm indeterminate left renal lesion. Recommend follow-up renal ultrasound. 3. Diverticulosis coli. 4. Normal appendix. Electronically Signed: Abhishek Paulino MD at 14:07 EDT , Discharge Plan Triage Chief Complaint: Flank Pain ED Provider: Trey Kern Dx/Rx/DC Orders Instructions: ED Kidney Stone, Passed Prescriptions: New oxycodone 5 mg tablet 5 mg PO Q6H PRN (Reason: pain) 3 Days Qty: 12 0RF ondansetron 4 mg tablet,disintegrating 4 mg PO Q8H PRN PRN (Reason: Nausea) Qty: 14 0RF No Action minocycline 100 MG capsule 100 mg PO DAILY PRN (Reason: ROACIA) Patient Comments: FOR ACNE colestipol 1 GM tablet 1 g PO DAILY Patient Comments: FOR GAS propranolol 80 mg tablet 80 mg PO DAILY amlodipine 2.5 mg tablet 2.5 mg PO DAILY warfarin 2 mg tablet 2 mg PO UD warfarin 1 mg tablet 1 mg PO UD Primary Care Provider: Ivon Solorzano Referrals: Ivon Solorzano DO [Primary Care Provider] - Disposition Disposition: Home, Self Care
[2023-09-11 11:55] LABS: Absolute Lymphocyte Count 1.11 X10^3/uL (0.83-4.51); Absolute Neutrophil Count 10.5 X10^3/uL (2.0-7.7); Basophil# 0.07 X10^3/uL; Basophil% 0.6 % (0-1); Eosinophil# 0.07 X10^3/uL; Eosinophils% 0.6 % (0-5); Hematocrit 41.5 % (37-47); Hemoglobin 13.1 g/dL (12.0-15.0); Lymphocyte # 1.11 X10^3/ul (0.83-4.51); Lymphocyte % 9.1 % (19-41); Mean Corp Hgb Conc 31.6 g/dL (32-36); Mean Corpuscular Hgb 27.3 pg (27.0-32.0); Mean Corpuscular Volume 86.6 fL (81-99); Mean Platelet Vol. 10.7 fl (6.2-12.0); Monocyte# 0.45 X10^3/uL; Monocyte% 3.7 % (0-10); NRBC Flagged by Analyzer 0 % (0-5); Neutrophil # 10.45 X10^3/uL (2.7-7.7); Neutrophil % 85.1 % (47-70); Platelet Count 265 K/mm3 (150-450); RBC Distribution Width CV 13.2 % (11.6-14.6); RBC Distribution Width SD 41.2 fl (35.1-43.9); Red Blood Count 4.79 M/mm3 (4.2-5.4); White Blood Count 12.3 K/mm3 (4.4-11.0)
[2023-09-11] MEDS: Morphine 4 MG/ML Syringe IV (12:07)
[2023-09-11] MEDS: Ondansetron 4 MG/2 ML Vial IV (12:07)
[2023-09-11 12:08] LABS: International Normalized Ratio 1.8; Prothrombin Time (Protime)PT. 20.8 SECONDS (11.7-14.9)
[2023-09-11 12:20] LABS: Bacteria 0 SEEN /hpf (None Seen); Mucous, Urine 0 SEEN /hpf (<or=2+); White Blood Cells 0 SEEN /hpf (0-5)
[2023-09-11 12:22] LABS: Color, Urine Yellow (Yellow); Glucose, Dipstick Normal (Normal); Ketone-Dipstick Negative (Negative); Leukocyte Esterase-Dipstick 100 /ul (Negative); Nitrite-Dipstick Negative (Negative); Occult Blood-Urine 250 /ul (Negative); Protein-Dipstick 15 mg/dl (Negative); Urine Bilirubin Dipstick Negative (Negative); Urine Clarity Clear (Clear); Urine Urobilinogen Normal (Normal)
[2023-09-11 12:28] LABS: Red Blood Cells-Urine 5-10 SEEN /hpf (0-5); Squamous Epithelial Cells - UA 0-5 SEEN /hpf (5-10)
[2023-09-11 12:59] LABS: AST(SGOT) < 3 U/L (15-37); Alanine Aminotransfer ALT/SGPT 22 U/L (13-56); Albumin, Serum 3.8 g/dL (3.2-5.0); Alkaline Phosphatase 85 U/L (45-117); Anion Gap 4 (5-15); BUN 13 mg/dL (7-18); BUN/Creat Ratio 10.6 RATIO (10-20); Bilirubin, Direct 0.08 mg/dL (0.00-0.30); Calcium,Total 8.9 mg/dL (8.5-10.1); Chloride 112 mmol/L (98-107); Creatinine, Serum 1.23 mg/dL (0.55-1.02); EST Glomerular Filtration Rate 47 mL/min (>60); Est Glom Filt Rate - Afr Amer 57 mL/min (>60); Estimated Creatinine Clearance 59.14 ml/min; Globulin 3.6 g/dL (2.2-4.2); Glucose 138 mg/dL (74-106); Lipase 53 U/L (13-75); Potassium 4.1 mmol/L (3.5-5.1); Protein, Total 7.4 g/dL (6.4-8.2); Sodium Level 142 mmol/L (136-145)
[2023-09-11 13:30] VITALS: BP 146/77; PULSE 74; RESP 16
[2023-09-11 14:48] VITALS: BP 146/77; PULSE 69; RESP 18; TEMP 36.7; O2SAT 99
== END 2023-09-11 14:49 | disposition home or self-care (01) ==
PROVIDERS: Emergency Provider Student in an Organized Health Care Education/Training Program; PCP Internal Medicine; Visit Provider Student in an Organized Health Care Education/Training Program
DX: N20.0 Calculus of kidney (principal); N28.1 Cyst of kidney, acquired; R10.9 Unspecified abdominal pain; R79.1 Abnormal coagulation profile; R11.2 Nausea with vomiting, unspecified; R31.9 Hematuria, unspecified; K21.9 Gastro-esophageal reflux disease without esophagitis; Z79.01 Long term (current) use of anticoagulants; Z79.899 Other long term (current) drug therapy
CPT/HCPCS: 74176; 80048; 80076; 81001; 83690; 85025; 85610; 96374; 96375; 99283; A4216; J2405

== ENCOUNTER 2023-10-13 12:03 | Outpatient (RCR) | payer SELFPAY ==
[2023-09-16 14:49] LABS: International Normalized Ratio 1.2
[2023-09-26 16:00] LABS: International Normalized Ratio 1.7; Prothrombin Time (Protime)PT. 19.5 SECONDS (11.7-14.9)
[2023-09-30 15:43] LABS: Prothrombin Time (Protime)PT. 22.3 SECONDS (11.7-14.9)
[2023-10-06 16:47] LABS: International Normalized Ratio 2.2; Prothrombin Time (Protime)PT. 24.4 SECONDS (11.7-14.9)
[2023-10-13 13:06] LABS: International Normalized Ratio 2.1; Prothrombin Time (Protime)PT. 23.6 SECONDS (11.7-14.9)
== END 2023-10-13 18:00 | disposition home or self-care (01) ==
LOC: LAB 12:03
PROVIDERS: PCP Internal Medicine; Referring Provider Internal Medicine; Visit Provider Internal Medicine
DX: I82.409 Acute embolism and thrombosis of unspecified deep veins of unspecified lower extremity (principal)
CPT/HCPCS: 36415; 85610

== ENCOUNTER 2023-11-04 12:50 | Outpatient (RCR) | payer SELFPAY ==
[2023-10-20 16:27] LABS: International Normalized Ratio 2.2; Prothrombin Time (Protime)PT. 24.6 SECONDS (11.7-14.9)
[2023-10-28 15:55] LABS: International Normalized Ratio 2.2; Prothrombin Time (Protime)PT. 24.7 SECONDS (11.7-14.9)
[2023-11-04 13:27] LABS: International Normalized Ratio 2.4; Prothrombin Time (Protime)PT. 25.8 SECONDS (11.7-14.9)
== END 2023-11-04 18:00 | disposition home or self-care (01) ==
LOC: LAB 12:50
PROVIDERS: PCP Internal Medicine; Referring Provider Internal Medicine; Visit Provider Internal Medicine
DX: I82.409 Acute embolism and thrombosis of unspecified deep veins of unspecified lower extremity (principal); R31.9 Hematuria, unspecified
CPT/HCPCS: 36415; 85610

== ENCOUNTER 2023-12-13 14:13 | Outpatient (RCR) | payer SELFPAY ==
[2023-12-13 15:07] LABS: International Normalized Ratio 2.8; Prothrombin Time (Protime)PT. 29.6 SECONDS (11.7-14.9)
== END 2023-12-14 18:00 | disposition home or self-care (01) ==
LOC: LAB 14:13
PROVIDERS: PCP Internal Medicine; Referring Provider Internal Medicine; Visit Provider Internal Medicine
DX: I82.409 Acute embolism and thrombosis of unspecified deep veins of unspecified lower extremity (principal)
CPT/HCPCS: 36415; 85610

== ENCOUNTER 2024-01-06 12:44 | Outpatient (RCR) | payer SELFPAY ==
[2023-12-23 13:05] LABS: International Normalized Ratio 2.5; Prothrombin Time (Protime)PT. 26.8 SECONDS (11.7-14.9)
[2023-12-30 16:12] LABS: International Normalized Ratio 2.3; Prothrombin Time (Protime)PT. 25.4 SECONDS (11.7-14.9)
[2024-01-06 13:37] LABS: International Normalized Ratio 2.5; Prothrombin Time (Protime)PT. 27.1 SECONDS (11.7-14.9)
== END 2024-01-06 18:00 | disposition home or self-care (01) ==
LOC: LAB 12:44
PROVIDERS: PCP Internal Medicine; Referring Provider Internal Medicine; Visit Provider Internal Medicine
DX: I82.409 Acute embolism and thrombosis of unspecified deep veins of unspecified lower extremity (principal)
CPT/HCPCS: 36415; 85610

== ENCOUNTER 2024-02-10 15:19 | Outpatient (RCR) | payer SELFPAY ==
[2024-01-27 14:13] LABS: International Normalized Ratio 2.4; Prothrombin Time (Protime)PT. 26.1 SECONDS (11.7-14.9)
[2024-02-03 15:11] LABS: International Normalized Ratio 2.8; Prothrombin Time (Protime)PT. 29.3 SECONDS (11.7-14.9)
[2024-02-10 16:22] LABS: International Normalized Ratio 2.6; Prothrombin Time (Protime)PT. 27.9 SECONDS (11.7-14.9)
== END 2024-02-10 18:00 | disposition home or self-care (01) ==
LOC: LAB 15:19
PROVIDERS: PCP Internal Medicine; Referring Provider Internal Medicine; Visit Provider Internal Medicine
DX: I82.409 Acute embolism and thrombosis of unspecified deep veins of unspecified lower extremity (principal)
CPT/HCPCS: 36415; 85610

== ENCOUNTER 2024-03-08 15:24 | Outpatient (RCR) | payer SELFPAY ==
[2024-02-17 14:06] LABS: International Normalized Ratio 2.7; Prothrombin Time (Protime)PT. 28.7 SECONDS (11.7-14.9)
[2024-02-24 13:18] LABS: International Normalized Ratio 2.4; Prothrombin Time (Protime)PT. 26.2 SECONDS (11.7-14.9)
[2024-02-24 17:25] LABS: Absolute Lymphocyte Count 2.07 X10^3/uL (0.83-4.51); Absolute Neutrophil Count 5.2 X10^3/uL (2.0-7.7); Basophil# 0.05 X10^3/uL; Basophil% 0.6 % (0-1); Eosinophil# 0.19 X10^3/uL; Eosinophils% 2.3 % (0-5); Hematocrit 41.1 % (37-47); Hemoglobin 13.1 g/dL (12.0-15.0); Lymphocyte # 2.07 X10^3/ul (0.83-4.51); Lymphocyte % 25.4 % (19-41); Mean Corp Hgb Conc 31.9 g/dL (32-36); Mean Corpuscular Hgb 27.4 pg (27.0-32.0); Mean Platelet Vol. 11.9 fl (6.2-12.0); Monocyte# 0.63 X10^3/uL; Monocyte% 7.7 % (0-10); NRBC Flagged by Analyzer 0 % (0-5); Neutrophil # 5.17 X10^3/uL (2.7-7.7); Neutrophil % 63.5 % (47-70); Platelet Count 265 K/mm3 (150-450); RBC Distribution Width CV 14.3 % (11.6-14.6); RBC Distribution Width SD 44.1 fl (35.1-43.9); Red Blood Count 4.78 M/mm3 (4.2-5.4); White Blood Count 8.2 K/mm3 (4.4-11.0)
[2024-02-24 17:30] LABS: Color, Urine Yellow (Yellow); Glucose, Dipstick Normal (Normal); Ketone-Dipstick Negative (Negative); Leukocyte Esterase-Dipstick 500 /ul (Negative); Nitrite-Dipstick Negative (Negative); Occult Blood-Urine 50 /ul (Negative); Protein-Dipstick 15 mg/dl (Negative); Urine Clarity Sl. Cloudy (Clear); Urine Urobilinogen Normal (Normal)
[2024-02-24 17:31] LABS: Urine Bilirubin Dipstick 1 mg/dL (Negative)
[2024-02-24 17:38] LABS: Bacteria RARE /hpf (None Seen); Hyaline Cast 0-5 SEEN /lpf (0-5); Mucous, Urine 1+ /hpf (<or=2+); Red Blood Cells-Urine 0-5 SEEN /hpf (0-5); Squamous Epithelial Cells - UA 0-5 SEEN /hpf (5-10); Transitional Epithelial - Ur 0-5 SEEN /hpf (0-5); White Blood Cells 5-10 SEEN /hpf (0-5)
[2024-02-24 17:59] LABS: Microalbumin,Random Urine 25.3 mg/L (NO RANGE EST.); Microalbumin:Creatinine Ratio 13.4 mg/g CRE (<30 mg/g CRE)
[2024-02-24 19:39] LABS: AST(SGOT) 17 U/L (15-37); Alanine Aminotransfer ALT/SGPT 32 U/L (13-56); Albumin, Serum 3.7 g/dL (3.2-5.0); Alkaline Phosphatase 90 U/L (45-117); Anion Gap 8 (5-15); BUN 15 mg/dL (7-18); BUN/Creat Ratio 19.1 RATIO (10-20); Calcium,Total 9.1 mg/dL (8.5-10.1); Chloride 111 mmol/L (98-107); Cholesterol 227 mg/dL (200); Creatinine, Serum 0.79 mg/dL (0.55-1.02); EST Glomerular Filtration Rate 79 mL/min (>60); Est Glom Filt Rate - Afr Amer 96 mL/min (>60); Globulin 3.6 g/dL (2.2-4.2); Glucose 94 mg/dL (74-106); High Density Lipoprotein 53 mg/dL; Potassium 4.2 mmol/L (3.5-5.1); Protein, Total 7.3 g/dL (6.4-8.2); Sodium Level 142 mmol/L (136-145); Triglycerides 476 mg/dL
[2024-03-08 16:58] LABS: International Normalized Ratio 2.3
== END 2024-03-08 18:00 | disposition home or self-care (01) ==
LOC: LAB 15:24
PROVIDERS: PCP Internal Medicine; Referring Provider Internal Medicine; Visit Provider Internal Medicine
DX: I82.409 Acute embolism and thrombosis of unspecified deep veins of unspecified lower extremity (principal); R31.9 Hematuria, unspecified; R73.09 Other abnormal glucose
CPT/HCPCS: 36415; 80053; 80061; 81001; 82043; 82570; 84443; 85025; 85610

== ENCOUNTER → 2024-03-08 | Outpatient (CLI) | payer SELFPAY ==
--- NOTE | 2024-03-08 14:51 | US_ITS ---
PROCEDURE: RENAL ULTRASOUND - COMPLETE REASON FOR EXAM: Female, 59 years old. Follow-up complex left renal cyst TECHNIQUE: Ultrasound evaluation of the bilateral kidneys was performed with real-time ultrasonography and static grayscale imaging. COMPARISON: CT scan of the abdomen and pelvis of 09/11/2023 FINDINGS: RIGHT KIDNEY: Normal location of the right kidney which is normal in size. The right kidney measures 12.4 x 5.6 x 5 cm. There is a normal cortex of the right kidney. The renal cortex measures 1.8 cm. There is no right renal mass or cyst. There are no right renal calculi. There is no right hydronephrosis. DISTAL RIGHT URETER: There is non-visualization of the distal right ureter. There is no demonstrated right ureterovesical junction calculus. There is a visualized right ureteral jet. LEFT KIDNEY: Normal location of the left kidney which is normal in size. The left kidney measures 10.8 x 4.8 x 5.8 cm. There is a normal cortex of the left kidney. The renal cortex measures 2.2 cm. There is no left renal mass or cyst. There are no left renal calculi. The complex left renal cyst could not be visualized on this exam. There is no left hydronephrosis. DISTAL LEFT URETER: There is non-visualization of the distal left ureter. There is no demonstrated left ureterovesical junction calculus. There is a visualized left ureteral jet. BLADDER: The distended urinary bladder has a volume of 273 ml. There is a normal wall thickness of the distended urinary bladder. There is no demonstrated mass within the urinary bladder. There is no demonstrated bladder calculi. US/Kidney and Bladder IMPRESSION: 1. No evidence of hydronephrosis. 2. Previously noted left renal cyst could not be visualized on this examination. Electronically Signed: Hemant Ewing MD at 15:54 EDT ,
== END | disposition home or self-care (01) ==
LOC: US 14:50
PROVIDERS: PCP Internal Medicine; Referring Provider Internal Medicine; Visit Provider Internal Medicine
DX: N28.1 Cyst of kidney, acquired (principal)
CPT/HCPCS: 76770

== ENCOUNTER 2024-03-16 13:41 | Outpatient (RCR) | payer SELFPAY ==
[2024-03-16 14:29] LABS: International Normalized Ratio 2.5; Prothrombin Time (Protime)PT. 26.6 SECONDS (11.7-14.9)
== END 2024-04-14 18:00 | disposition home or self-care (01) ==
LOC: LAB 13:41
PROVIDERS: PCP Internal Medicine; Referring Provider Internal Medicine; Visit Provider Internal Medicine
DX: I82.409 Acute embolism and thrombosis of unspecified deep veins of unspecified lower extremity (principal)

== ENCOUNTER → 2024-03-16 | Outpatient (CLI) | payer SELFPAY ==
--- NOTE | 2024-03-16 14:02 | VDLE_ITS ---
Reason For Study: Left leg DVT RIGHT LEFT GSV is normal. GSV is normal. CFV is compressible, spontaneous, phasic, CFV is compressible, spontaneous, phasic, competent and demonstrates normal competent, and demonstrates normal augmentation. augmentation. FV is compressible, spontaneous, phasic, FV is compressible, spontaneous, phasic, competent and demonstrates normal competent and demonstrates normal augmentation. augmentation. POP V is compressible, spontaneous, phasic, POP V is compressible, spontaneous, phasic, competent and demonstrates normal competent and demonstrates normal augmentation. augmentation. T/P Trunk is compressible. T/P Trunk is compressible. PTV is compressible. PTV is compressible. RT PerV is compressible. LT PerV is compressible. Procedure Left GastrocV is compressible. This is a venous duplex using B-mode, color flow and spectral Doppler. Exam performed in department. Compared to 07/04/2023. A preliminary report was called and/or faxed to Dr. Solorzano. VL/Venous Duplex US - Vinod Extrem Interpretation Summary Deep veins of the lower extremities are bilaterally patent and compressible seg mentally. There is no evidence of deep vein thrombosis on either side. Valvular competence appears in tact within the proximal deep venous systems bilaterally. The great saphenous veins appear bila terally patent and compressible segmentally. Ordering Physician: Ivon Solorzano Referring Physician: Ivon Solorzano Performed By: Suzette Clay RVT
== END | disposition home or self-care (01) ==
LOC: CVS 14:01
PROVIDERS: PCP Internal Medicine; Referring Provider Internal Medicine; Visit Provider Internal Medicine
DX: I82.409 Acute embolism and thrombosis of unspecified deep veins of unspecified lower extremity (principal)
CPT/HCPCS: 93970

== ENCOUNTER → 2024-03-23 | Outpatient (CLI) | payer SELFPAY ==
--- NOTE | 2024-03-23 14:33 | CT_ITS ---
ACR Level 3 findings have been noted. An addendum which confirms receipt of the report will follow. EXAM: CT CHEST WITHOUT INTRAVENOUS CONTRAST CLINICAL INDICATION: LUNG NODULE TECHNIQUE: Helically acquired images were obtained of the chest without intravenous contrast. This CT exam was performed using one or more of the following dose reduction techniques: automated exposure control, adjustment of the mA and/or kV according to patient size, and/or use of iterative reconstruction technique. RADIATION DOSE: CTDIvol = 21.78 mGy, DLP = 768.71 mGy-cm COMPARISON: Ct FINDINGS: LUNGS AND PLEURAL SPACES: Unremarkable. No pneumothorax. No pulmonary nodules, infiltrates or effusions. HEART: Unremarkable. No pericardial effusion. Normal heart size. No significant coronary artery calcifications. MEDIASTINUM: Slight fluid in the superior pericardial recesses and small mediastinal lymph nodes, not no surrounding pathologic by size. Small hiatal hernia. Esophagus is unremarkable. THYROID: Unremarkable. No thyroid lesions. BONES/JOINTS: Mild degenerative spine changes. No suspicious lytic or blastic abnormality. VASCULATURE: See above. UPPER ABDOMEN: Most of the abdomen is not included, spleen is not included. Region of the gallbladder is not included. Unremarkable mid to distal pancreas, adrenals. Kidneys are not fully included. Minimal diverticulosis of the splenic flexure region. BREASTS: The breasts are not fully included but there is an ill-defined, solid, and highly spiculated nodule of roughly 2 cm x 1.2 cm x 1.3 cm in the medial apparently lower left breast, anterior margin estimated to be 1.8 cm deep to the skin and 4.9 cm to the left of midline. This appears to be in the region of a small and better circumscribed 1 cm by 8mm by 1.1 cm nodular focus in this location on January 11, [address] Significant increase in size, and significant change in spiculation and irregular margins. This projects anterior to the third-fourth ribs with the patient supine. Highly suspicious for primary breast neoplasm. No suspicious axillary or internal mammary region adenopathy. CT/Chest without Contrast IMPRESSION: 1. Solid, very irregular, highly spiculated, and rapidly enlarging mass of 2 cm maximum diameter in the medial left breast. This is highly suspicious for a primary breast neoplasm. RECOMMENDATION: Referral for biopsy, breast imaging. 2. No acute intrathoracic abnormality. No pulmonary nodules or significant parenchymal changes. Small hiatal hernia. 3. Nonstandard communication type III protocol initiated, to contact the office in the morning Electronically Signed: Cassie Sanchez MD at 3:32 EST Reading Location ID and State: [facility] / [place] Tel , Service support ,
== END | disposition home or self-care (01) ==
LOC: CT 14:31
PROVIDERS: PCP Internal Medicine; Referring Provider Internal Medicine; Visit Provider Internal Medicine
DX: R91.8 Other nonspecific abnormal finding of lung field (principal)
CPT/HCPCS: 71250

== ENCOUNTER → 2024-12-31 | Outpatient (CLI) | payer SELFPAY ==
[2024-12-31 15:51] LABS: Hematocrit 39.9 % (37-47); Hemoglobin 12.8 g/dL (12.0-15.0); Immature Granulocytes Count 0.030 X10^3/uL (0.0-0.0); Mean Corp Hgb Conc 32.1 g/dL (32-36); Mean Corpuscular Volume 87.5 fL (81-99); Mean Platelet Vol. 11.1 fl (6.2-12.0); NRBC Flagged by Analyzer 0 % (0-5); Platelet Count 271 K/mm3 (150-450); RBC Distribution Width CV 13.9 % (11.6-14.6); RBC Distribution Width SD 43.9 fl (35.1-43.9); Red Blood Count 4.56 M/mm3 (4.2-5.4); White Blood Count 8.7 K/mm3 (4.4-11.0)
[2024-12-31 16:13] LABS: Creatinine, Urine (random) 255.00 mg/dL (28.00-217.00); Microalbumin,Random Urine 26.8 mg/L (<20 mg/L)
[2024-12-31 17:21] LABS: Color, Urine Straw (Yellow); Glucose, Dipstick Normal (Normal); Ketone-Dipstick 5 mg/dl (Negative); Leukocyte Esterase-Dipstick 500 /ul (Negative); Nitrite-Dipstick Negative (Negative); Occult Blood-Urine 25 /ul (Negative); Protein-Dipstick 30 mg/dl (Negative); Specific Gravity, Urine 1.020 (1.002-1.030)
[2024-12-31 17:43] LABS: Urine Bilirubin Dipstick 1 mg/dL (Negative)
[2024-12-31 18:08] LABS: Cholesterol 214 mg/dL (<=200); Low Density Lipoprotein Calc. 90 mg/dL; Triglycerides 354 mg/dL; Very Low Density Lipoprotein 71 mg/dL (5-40); Vitamin D,25 Hydroxy 13.6 ng/mL (30-100); cholesterol:hdl ratio screen 3.99
[2024-12-31 18:09] LABS: AST(SGOT) 21 U/L (<=31); Alanine Aminotransfer ALT/SGPT 24 U/L (<=34); Albumin, Serum 4.3 g/dL (3.4-4.8); Alkaline Phosphatase 88 U/L (35-104); Anion Gap 14 (5-15); BUN 10 mg/dL (4-19); BUN/Creat Ratio 12.6 RATIO (10-20); Calcium,Total 9.4 mg/dL (7.6-11.0); Carbon Dioxide 21.3 mmol/L (21.0-32.0); Chloride 106 mmol/L (98-108); Globulin 2.9 g/dL (2.2-4.2); Glucose 83 mg/dL (70-99); Potassium 4.5 mmol/L (3.3-5.1)
[2024-12-31 20:56] LABS: Mucous, Urine 3+ /hpf (<or=2+); Red Blood Cells-Urine 5-10 SEEN /hpf (0-5); Squamous Epithelial Cells - UA 25-50 SEEN /hpf (5-10); Transitional Epithelial - Ur 0-5 SEEN /hpf (0-5)
== END | disposition home or self-care (01) ==
LOC: LAB.FUTURE 15:09 → LAB 15:11
PROVIDERS: PCP Internal Medicine; Referring Provider Internal Medicine; Visit Provider Internal Medicine
DX: E78.1 Pure hyperglyceridemia (principal); R73.09 Other abnormal glucose; Z13.29 Encounter for screening for other suspected endocrine disorder; Z13.21 Encounter for screening for nutritional disorder
CPT/HCPCS: 36415; 80053; 80061; 81001; 82043; 82306; 82570; 83036; 84443; 85025

== ENCOUNTER → 2025-01-10 | Outpatient (CLI) | payer SELFPAY ==
[2025-01-10 16:18] LABS: Mucous, Urine 0 SEEN /hpf (<or=2+)
[2025-01-10 17:00] LABS: Anion Gap 13 (5-15); BUN 19 mg/dL (4-19); BUN/Creat Ratio 21.1 RATIO (10-20); Calcium,Total 9.9 mg/dL (7.6-11.0); Carbon Dioxide 24.2 mmol/L (21.0-32.0); Chloride 100 mmol/L (98-108); Glucose 101 mg/dL (70-99); Potassium 4.9 mmol/L (3.3-5.1)
[2025-01-10 17:53] LABS: Color, Urine Yellow (Yellow); Glucose, Dipstick Normal (Normal); Ketone-Dipstick Negative (Negative); Leukocyte Esterase-Dipstick 500 /ul (Negative); Nitrite-Dipstick Negative (Negative); Occult Blood-Urine 25 /ul (Negative); Protein-Dipstick 15 mg/dl (Negative); Specific Gravity, Urine 1.020 (1.002-1.030); Urine Bilirubin Dipstick Negative (Negative)
[2025-01-10 19:25] LABS: Red Blood Cells-Urine 0-5 SEEN /hpf (0-5)
[2025-01-10 19:26] LABS: Squamous Epithelial Cells - UA 5-10 SEEN /hpf (5-10)
[2025-01-10 19:27] LABS: Transitional Epithelial - Ur 0-5 SEEN /hpf (0-5)
== END | disposition home or self-care (01) ==
LOC: LAB 16:15
PROVIDERS: PCP Internal Medicine; Referring Provider Internal Medicine; Visit Provider Internal Medicine
DX: R31.9 Hematuria, unspecified (principal); R82.90 Unspecified abnormal findings in urine; Z51.81 Encounter for therapeutic drug level monitoring
CPT/HCPCS: 36415; 80048; 81001; 87086

== ENCOUNTER → 2025-01-18 | Outpatient (CLI) | payer SELFPAY ==
[2025-01-18 14:32] LABS: Color, Urine Yellow (Yellow); Glucose, Dipstick Normal (Normal); Ketone-Dipstick Negative (Negative); Leukocyte Esterase-Dipstick 500 /ul (Negative); Nitrite-Dipstick Negative (Negative); Occult Blood-Urine 50 /ul (Negative); Protein-Dipstick 30 mg/dl (Negative); Specific Gravity, Urine 1.015 (1.002-1.030); Urine Bilirubin Dipstick Negative (Negative)
== END | disposition home or self-care (01) ==
LOC: LAB 14:11
PROVIDERS: PCP Internal Medicine; Referring Provider Internal Medicine; Visit Provider Internal Medicine
DX: R31.9 Hematuria, unspecified (principal)
CPT/HCPCS: 81002; 87086; 87088

== ENCOUNTER → 2025-02-01 | Outpatient (CLI) | payer SELFPAY ==
[2025-02-01 17:04] LABS: Anion Gap 13 (5-15); BUN 18 mg/dL (4-19); BUN/Creat Ratio 19.6 RATIO (10-20); Calcium,Total 9.7 mg/dL (7.6-11.0); Carbon Dioxide 24.0 mmol/L (21.0-32.0); Chloride 102 mmol/L (98-108); Glucose 99 mg/dL (70-99); Potassium 4.0 mmol/L (3.3-5.1)
== END | disposition home or self-care (01) ==
LOC: LAB 15:09
PROVIDERS: PCP Internal Medicine; Referring Provider Internal Medicine; Visit Provider Internal Medicine
DX: Z51.81 Encounter for therapeutic drug level monitoring (principal)
CPT/HCPCS: 36415; 80048

== ENCOUNTER → 2025-05-10 | Outpatient (CLI) | payer SELFPAY ==
--- NOTE | 2025-05-10 18:23 | CT_ITS ---
PROCEDURE: ABDOMEN/PELVIS WITHOUT CONT 05/10/2025 REASON FOR EXAM: HEMATURIA TECHNIQUE: Procedure Code: [id number] Modality: CT Procedure: ABDOMEN/PELVIS WITHOUT CONT Noncontrast technique limits evaluation of the abdominal and pelvic viscera. Coronal and Sagittal reconstruction series were provided. One or more dose reduction techniques were used (e.g., Automated exposure control, adjustment of the mA and/or kV according to patient size, use of iterative reconstruction technique). RADIATION DOSE SUMMARY: CTDlvol: 21.44 mGy DLP: 1097.96 mGycm COMPARISON: CT abdomen and pelvis September 11, 2023. FINDINGS: Lung bases: Clear Liver: Fatty infiltration of the liver. Hepatomegaly with the liver measures 22 cm in length. Gallbladder: Unremarkable. No biliary dilation. Spleen: Unremarkable. Pancreas: Unremarkable. Adrenals: Unremarkable. Kidneys: No hydronephrosis. No nephrolithiasis. Bladder: Unremarkable. Reproductive Organs: Unremarkable. Bowel: No bowel wall thickening. No bowel obstruction. Colonic diverticulosis without emesis of acute diverticulitis. Appendix: Normal. Lymph nodes: No lymphadenopathy. Vasculature: No aneurysm. Peritoneum / Retroperitoneum: No free air or free fluid. Bones: No acute bony abnormalities. Degenerate changes, predominantly at L5-S1. CT/Abdomen/Pelvis without Cont IMPRESSION: No acute abdominopelvic abnormalities. Hepatomegaly and liver steatosis. Colonic diverticulosis without evidence of acute diverticulitis. Reading Location: [facility]
--- OUTSIDE RECORDS SUMMARY | 2025-05-10 18:27 | XMS RPT_ITS | CCD ---
Author Organization [facility] Care Team Providers Care Butcher Assistant Name Role Phone Ivon Lopez Unavailable Blu Humphrey Unavailable Robb Navas Unavailable [facility] Unavailable Ericka Graff Unavailable James Cooper Unavailable Ariel Christensen Unavailable Ema Westfall Unavailable Unavailable Ramo Garcian L Unavailable Unavailable Unavailable Unavailable Ivon Lopez Unavailable Blu Humphrey Unavailable Robb Navas Unavailable [facility] Unavailable Ericka Graff Unavailable James Cooper Unavailable Ariel Christensen Unavailable Iqra Erwin Unavailable Unavailable Ema Westfall Unavailable Unavailable Jose Radha L Unavailable Unavailable Unavailable Unavailable Agus Gomez Unavailable [phone] Flor Mariscal Unavailable Ivon Lopez Attending Unavailable Ivon Lopez Referring Unavailable Ivon Lopez Consulting Unavailable Maribel Noel Unavailable Unavailable [facility] Unavailable [facility] Unavailable Iqra Erwin Unavailable Unavailable renny Bailey Unavailable Unavailable Rinku Beatty Unavailable Unavailable Khoi, Ema Unavailable Unavailable Radha Garcia Unavailable Unavailable IrajDuke crowea Unavailable Unavailable Ciesa, Shanita Unavailable Rinku Norwood Unavailable Unavailable Richelle Shen Unavailable Unavailable John DO, Ivon Unavailable Agus Gomez Unavailable Blu Humphrey Unavailable YosefRobb no Unavailable [facility] Unavailable Ericka Graff MD Unavailable [facility] Unavailable Dr. James Cooper Unavailable Dr. Ariel Christensen Unavailable Ac COREASN, Richelle Unavailable Unavailable Cuco CORONADO, Rinku Unavailable Unavailable Khoi MONTAÑO, Ema Unavailable Unavailable Rosa Kincaid CNP Unavailable Radha Garcia RN Unavailable Unavailable Slarichard INSULATION CUTTER AND FORMER, Maribel Unavailable Unavailable Unavailable Unavailable Irene INSULATION CUTTER AND FORMER, Cece Unavailable Unavailable John DO, Ivon Unavailable Gravius WEARING APPAREL PRESSER, Iqra Unavailable Unavailable Olivier WEARING APPAREL PRESSER, Kayela Unavailable Unavailable [place] ASSISTANT ASSOCIATE PROFESSOR-Maribell WELDON Primary Care Provider [phone] Glennamari Ryan Unavailable Julio INSULATION CUTTER AND FORMER, Estrada Unavailable Unavailable NAVEED, MARIBELL L Attending Unavailable NAVEED, MARIBELL L Primary Care Unavailable NAVEED, MARIBELL L Attending Unavailable NAVEED, MARIBELL L Referring Unavailable NAVEED, MARIBELL L Primary Care Unavailable NAVEED, MARIBELL L Attending Unavailable NAVEED, MARIBELL L Referring Unavailable NAVEED, MARIBELL L Primary Care Unavailable Naveed, Dale Prado Referring Unavailabl e Naveed, Mrs. Maribell Prado Attending Unavailabl e [place], Mrs. Maribell Prado Primary Care Unavailabl e Naveed, Mrs. Maribell Prado Attending Unavailabl e [place], Mrs. Maribell Prado Primary Care Unavailabl e John, Dr. Del Valle Primary Care Provider [phone] Dr. Robby Mancear Attending Provider [phone] CHUCK Marroquin Referring Provider [phone] Dr. Phuc Mast Attending Provider [phone] Dr. Ivon Lopez Primary Care Provider [phone] Dr. Robby Mancera Attending Provider [phone] CHUCK Marroquin Referring Provider [phone] Dr. Phuc Mast Attending Provider [phone] Amanda Penn Referring Provider Unavailable Lucia ARAMBULA, Edna Silva Unavailable [phone] John DO, Ivon Kiran Primary Care Provider RIVER LA Attending Unavailable JOHN, IVON KIRAN Referring Unavailab le JOHN, IVON KIRAN Primary Care Unavailab le John DO, Dr. Del Valle Primary Care Provider John DELEON, Dr. Del Valle Attending Provider [phone] John DELEON, Dr. Del Valle Referring Provider [phone] John DELEON, Dr. Del Valle Primary Care Physician John DELEON, Dr. Del Valle Attending Physician [phone] John, Ivon Primary Care Unavailable John, Ivon Attending Unavailable John, Ivon Referring Unavailable John, Ivon Primary Care Unavailable John, Ivon Attending Unavailable John, Ivon Referring Unavailable John, Ivon Primary Care Unavailable John, Ivon Attending Unavailable John, Ivon Referring Unavailable John, Ivon Primary Care Unavailable John, Ivon Attending Unavailable John, Ivon Referring Unavailable John, Ivon Attending Unavailable John, Ivon Referring Unavailable John, Ivon Primary Care Unavailable John, Ivon Primary Care Unavailable John, Ivon Attending Unavailable John, Ivon Referring Unavailable John, Ivon Attending Unavailable John, Ivon Referring Unavailable John, Ivon Primary Care Unavailable John, Ivon Primary Care Unavailable John, Ivon Attending Unavailable John, Ivon Referring Unavailable John, Ivon Attending Unavailable John, Ivon Referring Unavailable John, Ivon Primary Care Unavailable Ivon Lopez Attending Unavailable Ivon Lopez Referring Unavailable John, Ivon Primary Care Unavailable JohnIvon rosado Primary Care Unavailable JohnIvon rosado Attending Unavailable John, Ivon Referring Unavailable Medications Current Medications Medication Drug Class(es) Dates Sig (Normalized) Sig (Original) [id number] 200 actuat albuterol 0.09 mg/actuat metered dose inhaler (20 sources) beta2-Adrenergic Agonist Start: 01-28-2023 End: 01-28-2024 take 2 puff(s) by inhalation every four hours for wheezing albuterol (Ventolin HFA) 90 mcg/actuation inhaler Indications: SOB (shortness of breath) , Multiple fractures of ribs, bilateral, initial encounter for closed fracture Inhale 2 puffs every 4 hours if needed for wheezing or shortness of breath. 8 g 5 01/28/2023 01/28/2024 Active Start: 06-02-2016 End: 08-23-2017 Start: 06-02-2016 End: 08-23-2017 take 2 puff(s) by inhalation every four to six hours as needed ProAir HFA 108 (90 Base) MCG/ACT Inhalation Aerosol Solution 2 (two) Puff Puff q4-6 hrs prn for 0 days Quantity: 1 {Inhaler} Refills: 0 Ordered: 23-Aug-2017 Ema Westfall RN Start : 02-Jun-2016 End : 23-Aug-2017 Inactive Start: 06-02-2016 End: 08-23-2017 ProAir HFA 108 (90 Base) MCG /ACT Inhalation Aerosol Solution 2 (two) Puff Puff q4-6 hrs prn for 0 days Quantity: 1 {Inhaler} Refills: 0 Ordered: 23-Aug-2017 Ema Westfall LPN Start : 02-Jun-2016 End : 23-Aug-2017 Inactive amLODIPine 2.5 mg oral tablet (6 sources) Dihydropyridine Calcium Channel Babak Start: 09-11-2023 take 1 tablet by mouth once daily sugar-free cholestyramine resin 4000 mg powder for oral suspension (20 sources) Bile Acid Sequestrant Start: 05-10-2012 End: 01-01-2013 cholestyramine low-calorie (CHOLESTYRAMINE LIGHT) 4 gram packet Indications: IBS (irritable bowel syndrome) Take 1 packet mix in 8 oz of water daily. (may use generic) 30 Packet 2 05/10/2012 Active Comment on above: Put on hold minocycline 100 mg oral capsule (20 sources) Tetracycline-class Drug Start: 10-25-2013 End: 03-11-2021 take 1 capsule by mouth once daily as needed Minocycline HCl 50 mg ORAL tablet Take 50 mg by mouth as needed. Active ondansetron 4 mg disintegrating oral tablet (6 sources) Serotonin-3 Receptor Antagonist Start: 09-11-2023 take 1 tablet by mouth every eight hours as needed for nausea oxyCODONE hydrochloride 5 mg oral tablet (6 sources) Opioid Agonist Start: 09-11-2023 take 1 tablet by mouth every six hours as needed for pain propranolol hydrochloride 80 mg oral tablet (20 sources) beta-Adrenergic Babak Start: 09-11-2023 take 1 tablet by mouth once daily Start: 01-21-2022 Start: 12-11-2021 Start: 11-03-2021 Start: 09-08-2021 Start: 06-30-2021 Start: 05-04-2021 Start: 03-28-2020 Start: 07-25-2019 take 1 tablet by kwadwo th twice daily Propranolol HCl 80 MG Oral Tablet 1 Tablet bid for 0 days Quantity: 60 {Tablet} Refills: 3 Ordered: 25-Jul-2019 Ivon Lopez DO, DO, Kathleen Start : 25-Jul-2019 Active Start: 11-29-2018 take 1 tablet by kwadwo th twice daily Propranolol HCl 80 MG Oral Tablet 1 Tablet bid for 0 days Quantity: 60 {Tablet} Refills: 3 Ordered: 29-Nov-2018 Ivon Lopez DO, DO, Kathleen Start : 29-Nov-2018 Active Start: 06-23-2018 take 1 tablet by kwadwo th twice daily Propranolol HCl 80 MG Oral Tablet 1 Tablet bid for 0 days Quantity: 60 {Tablet} Refills: 1 Ordered: 23-Jun-2018 Ivon Lopez DO, DO, Kathleen Start : 23-Jun-2018 Active Start: 05-23-2018 take 1 tablet by kwadwo th twice daily Propranolol HCl 80 MG Oral Tablet 1 Tablet bid for 0 days Quantity: 60 {Tablet} Refills: 1 Ordered: 23-May-2018 John DELEON Ivon Gonzalez DO Start : 23-May-2018 Active Start: 10-25-2013 End: 09-11-2023 take 1 capsule by mouth once daily Propranolol 80 MG capsule Discontinued 80 mg PO DAILY October 25, 2013 12:00am September 11, 2023 11:38am Start: 01-07-2010 End: 08-10-2010 PROPRANOLOL HCL (INDERAL ORAL) Take by mouth. Active Comment on above: This order discontin ued per [facility]. warfarin sodium 2 mg oral tablet (12 sources) Vitamin K Antagonist Start: 09-11-2023 Start: 09-11-2023 Completed/Discontinued Medications Medication Drug Class(es) Dates Sig (Normalized) Sig (Original) acetaminophen 325 mg / HYDROcodone bitartrate 5 mg oral tablet (20 sources) Opioid Agonist Start: 12-15-2022 End: 09-11-2023 Hydrocodone-Acetami nophen 5-325 mg tablet Discontinued 1 {tbl} PO EVERY 6 HOURS NEEDED as needed for Pain 10 3 0 December 15, 2022 September 11, 2023 11:38am Contusion of chest wall Contusion of unspecified front wall of thorax, initial encounter Start: 12-15-2022 End: 09-11-2023 take 1 tablet by mouth every six hours as needed Hydrocodone-Acetaminophen Discontinued 1 TABLET PO EVERY 6 HOURS NEEDED 10 3 December 15, 2022 September 11, 2023 11:38am Start: 09-13-2016 End: 08-23-2017 Start: 09-13-2016 End: 08-23-2017 take 1 tablet by mouth every six hours as needed Palisades 5-325 MG Oral Tablet 1 (one) Table t Tablet q6h prn for 0 days Quantity: 20 {Tablet} Refills: 0 Ordered: 23-Aug-2017 Ema Westfall RN Start : 13-Sep-2016 End : 23-Aug-2017 Inactive Comments: twenty Comment on above: twenty amoxicillin 875 mg / clavula beronica 125 mg oral tablet (20 sources) Penicillin-class Antibacterial Start: 06-02-2016 End: 06-16-2016 Start: 06-02-2016 End: 06-16-2016 take 1 tablet by mouth twice daily at mealtime Augmentin 875-125 MG Oral Tablet 1 (one) Tablet BID for 14 days Quantity: 28 {QS} Refills: 0 Ordered: 02-Jun-2016 Rosa Kincaid CNP Start : 02-Jun-2016 End : 16-Jun-2016 Inactive Comments: Take with food Start: 02-24-2012 End: 12-20-2012 Start: 02-24-2012 End: 12-20-2012 take 1 tablet by mouth twice daily AUGMENTIN, 875-125MG (Oral Tablet) 1 Tablet bid for 0 days Quantity: 20 {Tablet} Refills: 0 Ordered: 20-Dec-2012 Ema Westfall RN Start : 24-Feb-2012 End : 20-Dec-2012 Inactive Comment on above: Take with food atropine sulfate 0.025 mg / diphenoxylate hydrochloride 2.5 mg oral tablet (20 sources) Anticholinergic, Cholinergic Muscarinic Antagonist, Antidiarrheal Start: 02-02-2011 End: 07-27-2011 Start: 02-02-2011 End: 07-27-2011 take 1 tablet by mouth three times daily as needed for diarrhea LOMOTIL, 2.5-0.025MG (Oral Tablet) 1 Tablet tid prn diarrhea for 0 days Quantity: 30 {Tablet} Refills: 1 Ordered: 27-Jul-2011 ELMER Lester LPN Start : 02-Feb-2011 End : 27-Jul-2011 Inactive clindamycin 300 mg oral caps ule (20 sources) Lincosamide Antibacterial Start: 09-10-2016 End: 09-14-2016 codeine phosphate 2 mg/ml / guaiFENesin 20 mg/ml oral solution (20 sources) Opioid Agonist Start: 06-02-2016 End: 02-07-2017 Start: 06-02-2016 End: 02-07-2017 take 1 [tsp_us] by mouth every four to six hours before mealtime Cheratussin AC 100-10 MG/5ML Oral Syrup 1 (one) Teaspoon 10 ml PO Q 4-6 Hours PRN Cough for 0 days Quantity: 6 {Fluid_Ounce} Refills: 0 Ordered: 07-Feb-2017 Ema Westfall RN Start : 02-Jun-2016 End : 07-Feb-2017 Inactive Comments: six Comment on above: six colestipol hydrochloride 1000 mg oral tablet (20 sources) Bile Acid Sequestrant Start: 8 take 2 tablets by mouth twice daily Colestid 1 GM Oral Tablet 2 (two) Tablet bid for 0 days Quantity: 120 {Tablet} Refills: 3 Ordered: 04-Aug-2020 Ivon Lopez DO, DO, Kathleen Start : 04-Aug-2020 Active Start: 10-25-2013 take 1 tablet by mouth once da isabel 24 hr cyclobenzaprine hydroc hloride 15 mg extended release oral capsule (20 sources) Muscle Relaxant Start: 06-06-2009 dapsone 0.05 mg/mg topical g el (20 sources) Sulfone Start: 03-18-2014 End: 06-02-2016 Start: 03-18-2014 End: 06-02-2016 Aczone 5 % External Gel 1 (o ne) Gel Gel bid spraringly for 0 days Quantity: 30 {Gram} Refills: 0 Ordered: 02-Jun-2016 Maribel Noel LPN Start : 18-Mar-2014 End : 02-Jun-2016 Discontinued escitalopram 10 mg oral tabl et (20 sources) Serotonin Reuptake Inhibitor Start: 04-25-2020 End: 03-11-2021 Start: 02-21-2020 take 1 tablet by kwadwo th once daily at bedtime Lexapro 10 MG Oral Tablet 1 (one) Tablet qhs for 0 days Quantity: 30 {Tablet} Refills: 1 Ordered: 21-Feb-2020 Ivon Lopez DO, DO, Kathleen Start : 21-Feb-2020 Active 24 hr etodolac 400 mg extended release oral tablet (20 sources) Nonsteroidal Anti-inflammatory Drug Start: 02-04-2014 End: 03-18-2014 Start: 02-04-2014 End: 03-18-2014 take 2 tablets by mouth once daily at mealtime ETODOLAC ER, 400MG (Oral Tablet Extended Release 24 Hour) 2 (two) Tablet ER 24HR qd with food after prednisone completed for 0 days Quantity: 20 {Tablet} Refills: 0 Ordered: 18-Mar-2014 Ema Westfall RN Start : 04-Feb-2014 End : 18-Mar-2014 Inactive FLUoxetine 20 mg oral capsul e (20 sources) Serotonin Reuptake Inhibitor Start: 04-07-2016 14 actuat fluticasone propio beronica 0.25 mg/actuat / salmeterol 0.05 mg/actuat dry powder inhaler (20 sources) Corticosteroid, beta2-Adrenergic Agonist Start: 07-25-2008 End: 11-22-2008 Start: 07-25-2008 End: 11-22-2008 Start: 07-25-2008 End: 11-22-2008 ADVAIR DISKUS, 250-50MCG/DOS E (Inhalation Miscellaneous) 1 Misc Twice daily for 0 days Quantity: 1 {Misc} Refills: 0 Ordered: 25-Jul-2008 ELMER Lester LPN Start : 25-Jul-2008 End : 22-Nov-2008 Inactive Start: 07-25-2008 End: 11-22-2008 ADVAIR DISKUS, 250-50MCG/DOS E (Inhalation Miscellaneous) 1 Misc Twice daily for 0 days Quantity: 1 {Misc} Refills: 0 Ordered: 25-Jul-2008 ELMER Lester Start : 25-Jul-2008 End : 22-Nov-2008 Inactive gabapentin 300 mg oral capsu le (20 sources) Anti-epileptic Agent Start: 06-23-2018 End: 02-14-2019 Start: 06-16-2018 Gabapentin 300 MG Oral Capsule 1 (one) Capsule qhs for 5nights then bid for 0 days Quantity: 60 {Capsule} Refills: 0 Ordered: 16-Jun-2018 Ivon Lopez DO, DO, Kathleen Start : 16-Jun-2018 Active hydroCHLOROthiazide 12.5 mg / lisinopril 20 mg oral tablet (20 sources) Thiazide Diuretic, Angiotensin Converting Enzyme Inhibitor Start: 10-25-2013 End: 06-09-2017 Lisinopril-Hydrochlorothiazi de 1 TABLET tablet Discontinued 1 {tbl} PO DAILY October 25, 2013 12:00am June 09, 2017 1:11pm Start: 10-25-2013 End: 06-09-2017 take 1 tablet by mouth once daily Lisinopril-Hydrochlorothiazide Discontin ued 1 TABLET PO DAILY October 25, 2013 12:00am June 09, 2017 1:11pm Start: 02-26-2013 End: 01-04-2014 Start: 02-26-2013 End: 01-04-2014 take 1 tablet by mouth twice daily LISINOPRIL-HYDROCHLOROTHIAZIDE, 20-12.5M G (Oral Tablet) 1 (one) Tablet bid for 0 days Quantity: 60 {Tablet} Refills: 3 Ordered: 04-Jan-2014 Eam Westfall RN Start : 26-Feb-2013 End : 04-Jan-2014 Inactive ibuprofen 600 mg oral tablet (9 sources) Nonsteroidal Anti-inflammatory Drug Start: 02-17-2023 Start: 12-28-2022 End: 02-27-2023 take 1 tablet by mouth every eight hours for pain ibuprofen 800 mg tablet Indications: Rib pain , Contusion of both lungs, initial encounter Take 1 tablet (800 mg) by mouth every 8 hours if needed for mild pain (1 - 3) (pain). 90 tablet 0 01/28/2023 02/27/2023 Active levoFLOXacin 500 mg oral tab let (20 sources) Quinolone Antimicrobial Start: 07-25-2008 End: 11-18-2008 meloxicam 15 mg oral tablet (20 sources) Nonsteroidal Anti-inflammatory Drug Start: 12-10-2011 End: 12-20-2012 methylPREDNISolone 4 mg oral tablet (20 sources) Corticosteroid Start: 11-27-2019 End: 12-18-2019 Start: 11-27-2019 End: 12-18-2019 take 1 tablet by mouth once at mealtime Medrol 4 MG Oral Tablet Therapy Pack TAD Tablet use as directed per instructions in pack for 0 days Quantity: 1 {Tablet} Refills: 0 Ordered: 18-Dec-2019 Rinku Norwood LPN Start : 27-Nov-2019 End : 18-Dec-2019 Inactive Comments: with food Comment on above: with food Minocyclen QD for acne (20 sources) Minocyclen QD fo r acne Inactive naproxen sodium 500 mg / SUMAtriptan 85 mg oral tablet (20 sources) Nonsteroidal Anti-inflammatory Drug, Serotonin-1b and Serotonin-1d Receptor Agonist Start: 07-01-2008 End: 05-03-2013 Drug Treatment Unknown - unknown (1 source) No information available. phentermine hydrochloride 37.5 mg oral capsule (20 sources) Sympathomimetic Amine Anorectic Start: 12-11-2021 Start: 05-06-2021 Start: 09-22-2018 End: 02-14-2019 Start: 08-25-2018 take 1 tablet by mouth once da isabel Adipex-P 37.5 MG Oral Tablet 1 Tablet qd for 0 days Quantity: 30 {Tablet} Refills: 0 Ordered: 25-Aug-2018 Iqra Erwin Start : 25-Aug-2018 Active Comments: thirty,wt 210 bmi 36 Start: 07-31-2018 take 1 tablet by mouth once da isabel Adipex-P 37.5 MG Oral Tablet 1 Tablet qd for 0 days Quantity: 30 {Tablet} Refills: 0 Ordered: 31-Jul-2018 Ivon Lopez DO Ivon Start : 31-Jul-2018 Active Comments: thirty,wt 224.5 bmi 38 Start: 11-08-2017 End: 06-16-2018 Start: 01-26-2013 End: 05-03-2013 take 1 tablet by mouth once daily ADIPEX-P, 37.5MG (Or al Tablet) 1 Tablet qd for 0 days Quantity: 30 {Tablet} Refills: 0 Ordered: 03-May-2013 ELMER Lester Start : 26-Jan-2013 End : 03-May-2013 Inactive Comments: thirty, BMI 38.45wt 215.5 bmi 36.96 Comment on above: thirtyBMI: 62587 thirty, BMI 38.45wt 215.5 bmi 36.96 thirty,wt 224.5 bmi 38 thirty,wt 210 bmi 36 thirty,wt 202 bmi 34 24 hr phentermine 3.75 mg / topiramate 23 mg extended release oral capsule (20 sources) Sympathomimetic Amine Anorectic Start: 01-04-2014 End: 05-21-2016 Start: 01-04-2014 End: 05-21-2016 take 3.75-23 mg by mouth every twenty-four hours Qsymia 3.75-23 MG Oral Capsule Extended Release 24 Hour 1 (one) Capsule ER 24HR qd for 30 days Refills: 0 Ordered: 21-May-2016 Ema Westfall RN Start : 04-Jan-2014 End : 21-May-2016 Inactive Comments: per Dr. Mark Comment on above: per Dr. Mark predniSONE 20 mg oral tablet (20 sources) Start: 01-04-2014 End: 03-18-2014 pregabalin 50 mg oral capsul e (20 sources) Start: 02-16-2011 End: 07-27-2011 sibutramine hydrochloride 10 mg oral capsule (20 sources) Start: 10-27-2009 End: 03-30-2010 Start: 07-29-2008 End: 11-22-2008 SUMAtriptan 100 mg oral tabl et (20 sources) Serotonin-1b and Serotonin-1d Receptor Agonist Start: 12-11-2021 Start: 10-27-2020 Start: 08-30-2019 take 1 tablet by kwadwo th every two hours Imitrex 100 MG Oral Tablet uad Tablet 1 at onset of headache and may repeat in 2 hours for 0 days Quantity: 10 {Tablet} Refills: 3 Ordered: 30-Aug-2019 Ivon Lopez DO, DO, Kathleen Start : 30-Aug-2019 Active Comments: pls give generic Start: 02-14-2019 take 1 tablet by kwadwo th every two hours Imitrex 100 MG Oral Tablet uad Tablet 1 at onset of headache and may repeat in 2 hours for 0 days Quantity: 10 {Tablet} Refills: 3 Ordered: 14-Feb-2019 SlaMaribel ramos LPN Start : 14-Feb-2019 Active Comments: pls give genric Start: 10-13-2017 take 1 tablet by kwadwo th every two hours Imitrex 100 MG Oral Tablet uad Tablet 1 at onset of headache and may repeat in 2 hours for 0 days Quantity: 10 {Tablet} Refills: 3 Ordered: 23-Jun-2018 Ivon Lopez DO, DO, Kathleen Start : 23-Jun-2018 Active Comments: pls give genric take 1 tablet by mouth once ESTRELLITA triptan (Imitrex) 100 mg tablet Take 1 tablet (100 mg) by mouth 1 time if needed for migraine. 0 Active Comment on above: pls give genric pls give generic topiramate 50 mg oral tablet (20 sources) Start: 11-22-2008 End: 04-28-2009 Start: 11-22-2008 End: 04-28-2009 take 2 tablets by mouth twice daily TOPAMAX, 50MG (Oral Tablet) Tablet BID for 0 days Refills: 4 Ordered: 22-Nov-2008 Ema Westfall RN Start : 22-Nov-2008 End : 28-Apr-2009 Inactive Comments: started 50 mg at night for 3 days then bid for 3 days then 1 am 2 in pm for 3 days then 2 bid Comment on above: started 50 mg at nig ht for 3 days then bid for 3 days then 1 am 2 in pm for 3 days then 2 bid valACYclovir 1000 mg oral ta blet (20 sources) Herpesvirus Nucleoside Analog DNA Polymerase Inhibitor, Herpes Simplex Virus Nucleoside Analog DNA Polymerase Inhibitor, Herpes Zoster Virus Nucleoside Analog DNA Polymerase Inhibitor Start: 06-16-2018 End: 06-23-2018 24 hr verapamil hydrochlorid e 120 mg extended release oral capsule (20 sources) Calcium Channel Babak Start: 01-07-2010 End: 01-07-2010 vilazodone hydrochloride 20 mg oral tablet (20 sources) Start: 05-21-2016 End: 02-07-2017 ZOLMitriptan 5 mg/actuat blanquita al spray (20 sources) Serotonin-1b and Serotonin-1d Receptor Agonist Start: 05-28-2011 End: 05-03-2013 Start: 05-28-2011 End: 05-03-2013 ZOMIG, 5MG (Nasal Solution) uad Solution 1 spray at onset of headache may repeat x1 if patino not gone after 2 hours for 0 days Quantity: 10 {Solution} Refills: 2 Ordered: 03-May-2013 ELMER Lester LPN Start : 28-May-2011 End : 03-May-2013 Inactive Comments: max dose 10mg qd Comment on above: max dose 10mg qd (11 sources) Problems Active Problems Problem Classification Problem Date Documented Da te Episodic/Chronic Abdominal pain (20 sources) Generalized abdominal pain; Translations: [Left upper quadrant abdominal tenderness] Resolved: 05-03-2013 03-31-2015 Episodic Comment on above: pain had with diarrh ea better. now new pain in right lower quadrent with menses will talk to design checker about because had endometriosis ck urine adn other l ab ordered in august 2017is flank pain referred from abdomen? ,kideny?, or thoracic spine? thoracic more disc s pace narrowing compared to x-ray 2014 -- so maybe it is referred pain from pinched nerve--ck urine adn other lab ordered in august 2017is flank pain referred from abdomen? ,kideny?, or thoracic spine?also grabbed at straws and treat viral shingles with no rash just in case ck urine adn other l ab ordered in august 2017is flank pain referred from abdomen? ,kideny?, or thoracic spine?also grabbed at straws and treat viral shingles with no rash just in case Administrative/social admission (20 sources) Patient encounter status; Translations: [School physical exam] Resolved: 05-03-2013 04-04-2015 Episodic Calculus of urinary tract (6 sources) Renal colic; Translations: [Unspecified renal colic] 09-11-2023 Episodic Crushing injury or internal injury (7 sources) Bilateral contusion of lungs; Translations: [Contusion of lung, bilateral, initial encounter] Onset: 12-28-2022 12-28-2022 Episodic Deficiency and other anemia (20 sources) Anemia, unspecified; Translations: [Anemia] 11-08-2017 Episodic Deficiency and other anemia (14 sources) Anemia; Translations: [ANEMIA, UNSPECIFIED (285.9)] Episodic Disorders of lipid metabolism (20 sources) Hypertriglyceridemi a; Translations: [Hypertriglyceridem ia] Onset: 01-04-2025 11-08-2017 Chronic E Codes: Fall (20 sources) Accidental fall ; Translations: [Accidental fall, initial encounter] Onset: 01-15-2023 02-17-2023 Episodic Essential hypertension (20 sources) Benign essential hypertension; Translations: [Hypertension, essential, benign] 11-08-2017 Chronic Fluid and electrolyte disorders (20 sources) Hyperkalemia; Translations: [Hyperkalemia] Resolved: 02-21-2020 09-04-2019 Episodic Genitourinary symptoms and ill-defined conditions (20 sources) Abnormal urine; Translations: [Urinary symptoms ] Onset: 01-28-2025 Resolved: 12-11-2021 02-07-2017 Episodic Comment on above: C/O urinary frequenc y and incrase throbbing, achy, stabbing lower L back pain that radiates to the L flank. Hx of chronic L flank pain. Headache; including migraine (20 sources) Migraine with aura; Translations: [Migraine with aura and without status migrainosus, not intractable] 11-08-2017 Chronic Headache; including migraine (20 sources) Headache; Translations: [Headache] Resolved: 05-03-2013 02-18-2015 Episodic Headache; including migraine (20 sources) Headache; including migraine Malaise and fatigue (20 sources) Fatigue; Translations: [Fatigue] Resolved: 04-28-2009 05-03-2013 Episodic Comment on above: not sleep well at al l, check BS at home Mood disorders (20 sources) Acute depression; Translations: [Depression, acute] 02-14-2019 Chronic Nausea and vomiting (20 sources)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 sediment by light microscopyOrdered By: Ivon Lopez on 01-10-2025 Epithelial cells.squamous LM Ql (Urine sed) 5-10 SEEN /hpf 5-10 [facility] Transitional cells detection in urine sediment by light microscopyOrdered By: Ivon Lopez on 01-10-2025 Transitional cells LM Ql (Urine sed) 0-5 SEEN /hpf 0-5 [facility] Urinalysis, Completeon 01-10 EPI,TRANSITION 0-5 SEEN Normal 0-5 [facility] Comment on above: Order Comment: CLEAN CATCH Performed By: #### L 400.0001, L500.2500, M100.2200 #### [facility] [address] [place], [address] EPI,SQUAMOUS 5-10 SEEN Normal 5-10 [facility] Comment on above: Order Comment: CLEAN CATCH Performed By: #### L 400.0001, L500.2500, M100.2200 #### [facility] [address] [place], [address] RBC 0-5 SEEN Normal 0-5 [facility] Comment on above: Order Comment: CLEAN CATCH Performed By: #### L 400.0001, L500.2500, M100.2200 #### [facility] [address] [place], [address] WBC 10-25 SEEN Normal 0-5 [facility] Comment on above: Order Comment: CLEAN CATCH Performed By: #### L 400.0001, L500.2500, M100.2200 #### [facility] [address] [place], [address] BACTERIA 0 SEEN Normal None Seen [facility] Comment on above: Order Comment: CLEAN CATCH Performed By: #### L 400.0001, L500.2500, M100.2200 #### [facility] [address] [place], [address] Mucus Ql (Urine sed) 0 SEEN Normal [facility] Comment on above: Order Comment: CLEAN CATCH Performed By: #### L 400.0001, L500.2500, M100.2200 #### [facility] [address] [place], [address] Urine clarityOrdered By: Jamilah Lopez on 01-10-2025 Clarity (U) Sl. Cloudy Clear [facility] Urine color determinationOrd ered By: Ivon Lopez on 01-10-2025 Color (U) Yellow Yellow [facility] Urine cultureOrdered By: Jamilah Lopez on 01-10-2025 Bacteria identified Cx Nom (U) Culture exhibits no growth. [facility] Urine glucose detectionOrder ed By: Ivon Lopez on 01-10-2025 Glucose Ql (U) Normal mg/dl Normal [facility] Urine leukocyte esterase det ection by dipstickOrdered By: Ivon Lopez on 01-10-2025 Leukocyte esterase Test strip Ql (U) 500 /ul High Negative [facility] Urine pHOrdered By: Ivon Lopez on 01-10-2025 pH (U) 5.0 [pH] 5.0 - 8.0 [facility] Urine sediment bacteria coun t by microscopy (number/high power field)Ordered By: Ivon Lopez on 01-10-2025 Bacteria LM.HPF (Urine sed) [#/Area] 0 /[HPF] None Seen [facility] Urine specific gravity measu rementOrdered By: Ivon Lopez on 01-10-2025 Specific gravity (U) [Rel density] 1.020 1.002-1.03 0 [facility] Urine urobilinogen measureme ntOrdered By: Ivon Lopez on 01-10-2025 Urobilinogen Ql (U) Normal mg/dl Normal [facility] White blood cell countOrdere d By: Ivon Lopez on 01-10-2025 White blood cell count 10-25 SEEN /hpf 0-5 [facility] Absolute lymphocyte countOrd ered By: Ivon Lopez on 12-31-2024 Lymphocytes Auto (Unsp spec) [#/Vol] 2.19 10*3/uL 0.83-4.51 [facility] Absolute neutrophil countOrd ered By: Ivon Lopez on 12-31-2024 Neutrophils (Bld) [#/Vol] 5.5 10*3/uL 2.0-7.7 [facility] Anion gap in Serum or Plasma Ordered By: Ivon Lopez on 12-31-2024 Anion gap [Moles/Vol] 14 mmol/L 5-15 [facility] Automated lymphocyte count a s percentage of total leukocytesOrdered By: Ivon Lopez on 12-31-2024 Lymphocytes/100 WBC Auto (Unsp spec) 25.3 % 19-41 [facility] BUN/creatinine ratioOrdered By: Ivon Lopez on 12-31-2024 Urea nitrogen/Creatinine [Mass ratio] 12.6 mg/mg 10- [facility] Basophil percentageOrdered B y: Ivon Lopez on 12-31-2024 Basophils/100 WBC (Bld) 0.6 % 0-1 [facility] Bilirubin Test strip Ql (U)O rdered By: Ivon Lopez on 12-31-2024 Bilirubin Ql (U) 1 mg/dL High Negative [facility] Comment on above: COLOR OF URINE MAY A FFECT DIPSTICK RESULTS. Bilirubin, totalOrdered By: Ivon Lopez on 12-31-2024 Bilirubin [Mass/Vol] mg/dL 0.00-1.30 [facility] CBC W/Diff, Automatedon 12-14 Absolute Lymph 2.19 X10 3/uL Normal 0.83-4.51 [facility] Comment on above: Performed By: #### L 506.1001, L100.0100, L500.4100, L501.9520, L400.0001, L500.4050, L502.0250, L501.9985 #### [facility] [address] [place], [address] Absolute Neut 5.5 X10 3/uL Normal 2.0-7.7 [facility] Comment on above: Performed By: #### L 506.1001, L100.0100, L500.4100, L501.9520, L400.0001, L500.4050, L502.0250, L501.9985 #### [facility] [address] [place], [address] Basophils/100 WBC (Bld) 0.6 % Normal 0-1 [facility] Comment on above: Performed By: #### L 506.1001, L100.0100, L500.4100, L501.9520, L400.0001, L500.4050, L502.0250, L501.9985 #### [facility] [address] [place], [address] Eosinophils/100 WBC (Bld) 3.3 % Normal 0-5 [facility] Comment on above: Performed By: #### L 506.1001, L100.0100, L500.4100, L501.9520, L400.0001, L500.4050, L502.0250, L501.9985 #### [facility] [address] [place], [address] Erythrocyte distribution width (RBC) [Ratio] 13.9 % Normal 11.6-14.6 [facility] Comment on above: Performed By: #### L 506.1001, L100.0100, L500.4100, L501.9520, L400.0001, L500.4050, L502.0250, L501.9985 #### [facility] [address] [place], [address] Hematocrit (Bld) [Volume fraction] 39.9 % Normal 37-47 [facility] Comment on above: Performed By: #### L 506.1001, L100.0100, L500.4100, L501.9520, L400.0001, L500.4050, L502.0250, L501.9985 #### [facility] [address] [place], [address] Hemoglobin (Bld) [Mass/Vol] 12.8 g/dL Normal 12.0-15.0 [facility] Comment on above: Performed By: #### L 506.1001, L100.0100, L500.4100, L501.9520, L400.0001, L500.4050, L502.0250, L501.9985 #### [facility] [address] [place], [address] IG% 0.300 Normal 0.0-0.9 [facility] Comment on above: Result Comment: IG% - Immature Granulocytes (promyelocytes, myelocytes and metamyelocytes) > 1% indicates that a LEFT SHIFT is Present. Performed By: #### L 506.1001, L100.0100, L500.4100, L501.9520, L400.0001, L500.4050, L502.0250, L501.9985 #### [facility] [address] [place], [address] Lymphocytes/100 WBC (Bld) 25.3 % Normal 19-41 [facility] Comment on above: Performed By: #### L 506.1001, L100.0100, L500.4100, L501.9520, L400.0001, L500.4050, L502.0250, L501.9985 #### [facility] [address] [place], [address] MCH (RBC) [Entitic mass] 28.1 pg Normal 27.0-32.0 [facility] Comment on above: Performed By: #### L 506.1001, L100.0100, L500.4100, L501.9520, L400.0001, L500.4050, L502.0250, L501.9985 #### [facility] [address] [place], [address] MCHC (RBC) [Mass/Vol] 32.1 g/dL Normal 32-36 [facility] Comment on above: Performed By: #### L 506.1001, L100.0100, L500.4100, L501.9520, L400.0001, L500.4050, L502.0250, L501.9985 #### [facility] [address] [place], [address] MCV (RBC) [Entitic vol] 87.5 fL Normal 81-99 [facility] Comment on above: Performed By: #### L 506.1001, L100.0100, L500.4100, L501.9520, L400.0001, L500.4050, L502.0250, L501.9985 #### [facility] [address] [place], [address] Monocytes/100 WBC (Bld) 6.7 % Normal 0-10 [facility] Comment on above: Performed By: #### L 506.1001, L100.0100, L500.4100, L501.9520, L400.0001, L500.4050, L502.0250, L501.9985 #### [facility] [address] [place], [address] Neutrophils/100 WBC (Bld) 63.8 % Normal 47-70 [facility] Comment on above: Performed By: #### L 506.1001, L100.0100, L500.4100, L501.9520, L400.0001, L500.4050, L502.0250, L501.9985 #### [facility] [address] [place], [address] Nucleated RBC (Bld) [#/Vol] 0 10*3/uL Normal 0-5 [facility] Comment on above: Performed By: #### L 506.1001, L100.0100, L500.4100, L501.9520, L400.0001, L500.4050, L502.0250, L501.9985 #### [facility] [address] [place], [address] Platelet mean volume (Bld) [Entitic vol] 11.1 fL Normal 6.2-12.0 [facility] Comment on above: Performed By: #### L 506.1001, L100.0100, L500.4100, L501.9520, L400.0001, L500.4050, L502.0250, L501.9985 #### [facility] [address] [place], [address] Platelets (Bld) [#/Vol] 271 10*3/uL Normal 150-450 [facility] Comment on above: Performed By: #### L 506.1001, L100.0100, L500.4100, L501.9520, L400.0001, L500.4050, L502.0250, L501.9985 #### [facility] [address] [place], [address] (232) RBC (Bld) [#/Vol] 4.56 10*6/uL Normal 4.2-5.4 [facility] Comment on above: Performed By: #### L 506.1001, L100.0100, L500.4100, L501.9520, L400.0001, L500.4050, L502.0250, L501.9985 #### [facility] [address] [place], [address] (351) RDW SD 43.9 fl Normal 35.1-43.9 [facility] Comment on above: Performed By: #### L 506.1001, L100.0100, L500.4100, L501.9520, L400.0001, L500.4050, L502.0250, L501.9985 #### [facility] [address] [place], [address] (744) WBC (Bld) [#/Vol] 8.7 10*3/uL Normal 4.4-11.0 [facility] Comment on above: Performed By: #### L 506.1001, L100.0100, L500.4100, L501.9520, L400.0001, L500.4050, L502.0250, L501.9985 #### [facility] [address] [place], [place], [id number] Calculated very low density lipoprotein (VLDL) cholesterol measurementOrdered By: Ivon Lopez on 12-31-2024 Calculated very low density lipoprotein (VLDL) cholesterol measurement 71 mg/dL High 5-40 [facility] Carbon dioxide, total [Moles /volume] in Central venous bloodOrdered By: Ivonhasmukh Lopez on 12-31-2024 CO2 [Moles/Vol] 21.3 mmol/L 21.0-32.0 [facility] Chloride assayOrdered By: Joshua Bergeron on 12-31-2024 Chloride [Moles/Vol] 106 mmol/L 98-108 [facility] Comprehensive Metabolic Prof ilon 12-31-2024 Albumin [Mass/Vol] 4.3 g/dL Normal 3.4-4.8 [facility] Comment on above: Performed By: #### L 400.0001, L500.2500, M1.0 #### [facility] [address] [place], [address] Albumin/Globulin [Mass ratio] 1.5 {ratio} Normal 0.9-2.4 [facility] Comment on above: Performed By: #### L 400.0001, L500.2500, M1.0 #### [facility] [address] [place], [address] ALK PHOS 88 U/L Normal 35-104 [facility] Comment on above: Performed By: #### L 400.0001, L500.2500, M1.2200 #### [facility] [address] [place], [address] ALT [Catalytic activity/Vol] 24 U/L Normal <=34 [facility] Comment on above: Performed By: #### L 400.0001, L500.2500, M100.2200 #### [facility] [address] [place], [address] AST [Catalytic activity/Vol] 21 U/L Normal <=31 [facility] Comment on above: Performed By: #### L 400.0001, L500.2500, M100.2200 #### [facility] [address] [place], [address] BUN/CRE 12.6 RATIO Normal 10-20 [facility] Comment on above: Performed By: #### L 400.0001, L500.2500, M100.0 #### [facility] [address] [place], [address] Calcium [Mass/Vol] 9.4 mg/dL Normal 7.6-11.0 [facility] Comment on above: Performed By: #### L 400.0001, L500.2500, M1.0 #### [facility] [address] [place], [address] Chloride [Moles/Vol] 106 mmol/L Normal 98-108 [facility] Comment on above: Performed By: #### L 400.0001, L500.2500, M1.2200 #### [facility] [address] [place], [address] CO2 [Moles/Vol] 21.3 mmol/L Normal 21.0-32.0 [facility] Comment on above: Performed By: #### L 400.0001, L500.2500, M100.2200 #### [facility] [address] [place], [address] Creatinine [Mass/Vol] 0.76 mg/dL Normal 0.70-1.20 [facility] Comment on above: Performed By: #### L 400.0001, L500.2500, M1.0 #### [facility] [address] [place], [address] GAP 14 Normal 5-15 [facility] Comment on above: Performed By: #### L 400.0001, L500.2500, M100.2200 #### [facility] [address] [place], [address] GFR/1.73 sq M.predicted among non-blacks MDRD (S/P/Bld) [Vol rate/Area] 89 mL/min/{1.73_m2} Normal >60 [facility] Comment on above: Result Comment: mL/m in/1.73m2 CKD-EPI Creatinine Equation (2020) Performed By: #### L 400.0001, L500.2500, #### [facility] [address] [place], [address] Globulin (S) [Mass/Vol] 2.9 g/dL Normal 2.2-4.2 [facility] Comment on above: Performed By: #### L 400.0001, L500.2500, #### [facility] [address] [place], [address] Glucose [Mass/Vol] 83 mg/dL Normal 70-99 [facility] Comment on above: Performed By: #### L 400.0001, L500.2500, #### [facility] [address] [place], [address] Potassium [Moles/Vol] 4.5 mmol/L Normal 3.3-5.1 [facility] Comment on above: Performed By: #### L 400.0001, L500.2500, #### [facility] [address] [place], [address] Sodium [Moles/Vol] 142 mmol/L Normal 133-145 [facility] Comment on above: Performed By: #### L 400.0001, L500.2499, #### [facility] [address] [place], [address] T BILI < 0.15 Normal 0.00-1.30 [facility] Comment on above: Performed By: #### L 400.0001, L500.2500, #### [facility] [address] [place], [address] T PROT 7.2 g/dL Normal 5.9-8.4 [facility] Comment on above: Performed By: #### L 400.0001, L500.2500, M100.2200 #### [facility] [address] [place], [address] Urea nitrogen [Mass/Vol] 10 mg/dL Normal 4-19 [facility] Comment on above: Performed By: #### L 400.0001, L500.2500, M100.2200 #### [facility] [address] [place], [address] Eosinophil percentageOrdered By: Ivon Lopez on 12-31-2024 Eosinophils/100 WBC (Bld) 3.3 % 0-5 [facility] Erythrocyte distribution wid th ratioOrdered By: Ivon Lopez on 12-31-2024 Erythrocyte distribution width (RBC) [Ratio] 13.9 % 11.6-14.6 [facility] Erythrocyte distribution wid th standard deviationOrdered By: Ivon Lopez on 12-31-2024 Erythrocyte distribution width (RBC) [Ratio] 43.9 fl 35.1-43.9 [facility] Glomerular filtration rate ( GFR) estimation/1.73 sq m using serum, plasma, or whole bOrdered By: Ivon Lopez on 12-31-2024 GFR/1.73 sq M.predicted among non-blacks MDRD (S/P/Bld) [Vol rate/Area] 89 mL/min/{1.73_m2} >60 [facility] Comment on above: mL/min/1.73m2 CKD-EP I Creatinine Equation (2020) Hematocrit Auto (Bld) [Volum e fraction]Ordered By: Ivon Lopez on 12-31-2024 Hematocrit (Bld) [Volume fraction] 39.9 % 37-47 [facility] Hemoglobin A1con 12-31-2024 HbA1c (Bld) [Mass fraction] 6.1 % High <=5.6 [facility] Comment on above: Result Comment: Norm al < 5.7 % Prediabetic 5.7 - 6.4 % Diabetic >or= 6.5 % Please note range changes. Performed By: #### L 506.1001, L100.0100, L500.4100, L501.9520, L400.0001, L500.4050, L502.0250, L501.9985 #### [facility] [address] [place], [address] Hemoglobin A1c percentageOrd ered By: Ivon Lopez on 12-31-2024 HbA1c (Bld) [Mass fraction] 6.1 % High <5.7 [facility] Comment on above: Normal < 5.7 % Predi abetic 5.7 - 6.4 % Diabetic >or= 6.5 % Please note range changes. Hemoglobin measurementOrdere d By: Ivon Lopez on 12-31-2024 Hemoglobin (Bld) [Mass/Vol] 12.8 g/dL 12.0-15.0 [facility] Immature granulocytes/100 WB C Auto (Bld)Ordered By: Ivon Lopez on 12-31-2024 Immature granulocytes/100 WBC (Bld) 0.300 % 0.0-0.9 [facility] Comment on above: IG% - Immature Granu locytes (promyelocytes, myelocytes and metamyelocytes) > 1% indicates that a LEFT SHIFT is Present. Ketones Test strip Ql (U)Ord ered By: Ivon Lopez on 12-31-2024 Ketones Ql (U) 5 mg/dl High Negative [facility] LDL calc ser/plasOrdered By: Ivon Lopez on 12-31-2024 Cholesterol in LDL [Mass/Vol] 90 mg/dL [facility] Comment on above: Obkaasympj=749-530 m g/dL & Higher Rjws=545 mg/dL or greaterFriedwald Equation for LDL-C Laboratory - Chemistry and C hemistry - challengeOrdered By: Ivon Lopez on 12-31-2024 AST [Catalytic activity/Vol] 21 U/L <32 [facility] Lipid Profileon 12-31-2024 CHOL:HDL 3.99 Normal [facility] Comment on above: Performed By: #### L 400.0001, L500.2500, M100.2200 #### [facility] [address] [place], [address] Cholesterol [Mass/Vol] 214 mg/dL High <=200 [facility] Comment on above: Result Comment: Chol esterol level, Desirable <200 mg/dL Borderline high cholesterol 200-239 mg/dL High cholesterol >=240 mg/dL Recommendations of the NCEP Adult Treatment Panel for the following risk-cutoff thresholds for the [place] population. Performed By: #### L 400.0001, L500.2500, M1.0 #### [facility] [address] [place], [address] Cholesterol in HDL [Mass/Vol] 54 mg/dL Normal [facility] Comment on above: Result Comment: Tsering onal Cholesterol Education Program (NCEP) guidelines: <40 mg/dL: Low HDL-cholesterol (major risk factor for CHD) >= 60 mg/dL: High HDL-cholesterol (negative risk factor for CHD) HDL-cholesterol is affected by a number of factors, e.g. smoking, exercise, hormones, sex and age. Performed By: #### L 400.0001, L500.2500, M1 #### [facility] [address] [place], [address] Cholesterol in LDL [Mass/Vol] 90 mg/dL Normal [facility] Comment on above: Result Comment: Bord kfdgwg=417-942 mg/dL Higher Pptc=625 mg/dL or greater Friedwald Equation for LDL-C Performed By: #### L 400.0001, L500.2500, M1.0 #### [facility] [address] [place], [address] Cholesterol in VLDL [Mass/Vol] 71 mg/dL High 5-40 [facility] Comment on above: Performed By: #### L 400.0001, L500.2500, M1.0 #### [facility] [address] [place], [address] Triglyceride [Mass/Vol] 354 mg/dL High [facility] Comment on above: Result Comment: The drugs N-Acetylcysteine and Metamizole may falsely depress this assay. Normal range: <150 mg/dL Borderline High: 150-199 mg/dL High: 200-499 mg/dL Very High: >500 mg/dL Performed By: #### L 400.0001, L500.2500, M100.2200 #### [facility] [address] [place], [place], [id number] MCV (mean corpuscular volume ) determinationOrdered By: Ivon Lopez on 12-31-2024 MCV (RBC) [Entitic vol] 87.5 fL 81-99 [facility] Mean corpuscular hemoglobin (MCH) determinationOrdered By: Ivon Lopez on 12-31-2024 MCH (RBC) [Entitic mass] 28.1 pg 27.0-32.0 [facility] Mean corpuscular hemoglobin concentration (MCHC) determinationOrdered By: Ivon Lopez on 12-31-2024 MCHC (RBC) [Mass/Vol] 32.1 g/dL 32-36 [facility] Mean platelet volume determi nationOrdered By: Ivon Lopez on 12-31-2024 Platelet mean volume (Bld) [Entitic vol] 11.1 fL 6.2-12.0 [facility] Microalb:Creat Ratio,Random URon 12-31-2024 Creatinine [Mass/Vol] 255.00 mg/dL High 28.00- 217. 00 [facility] Comment on above: Performed By: #### L 506.1001, L100.0100, L500.4100, L501.9520, L400.0001, L500.4050, L502.0250, L501.9985 #### [facility] [address] [place], [place], [id number] MALB:CREAT 10.5 mg/g CRE Normal <30 mg/g CRE [facility] Comment on above: Performed By: #### L 506.1001, L100.0100, L500.4100, L501.9520, L400.0001, L500.4050, L502.0250, L501.9985 #### [facility] [address] [place], [place], [address] MICROALBUMIN,UR 26.8 mg/L Normal <20 mg/L [facility] Comment on above: Performed By: #### L 506.1001, L100.0100, L500.4100, L501.9520, L400.0001, L500.4050, L502.0250, L501.9985 #### [facility] [address] [place], [place], [id number] Microscopic analysis of urin e for red blood cells (RBC)Ordered By: Ivon Lopez on 12-31-2024 Microscopic analysis of urine for red blood cells (RBC) 5-10 SEEN /hpf 0-5 [facility] Monocyte percentageOrdered B y: Ivon Lopez on 12-31-2024 Monocytes/100 WBC (Bld) 6.7 % 0-10 [facility] Mucus LM Ql (Urine sed)Order ed By: Ivon Lopez on 12-31-2024 Mucus Ql (Urine sed) 3+ /hpf [facility] Neutrophil percentageOrdered By: Ivon Lopez on 12-31-2024 Neutrophils/100 WBC (Bld) 63.8 % 47-70 [facility] Nitrite Test strip Ql (U)Ord ered By: Ivon Lopez on 12-31-2024 Nitrite Ql (U) Negative Negative [facility] Nucleated red blood cell per centageOrdered By: Ivon Lopez on 12-31-2024 Nucleated RBC/100 WBC (Bld) [Ratio] 0 % 0-5 [facility] Platelet countOrdered By: Joshua Lopez on 12-31-2024 Platelets (Bld) [#/Vol] 271 10*3/uL 150-450 [facility] Potassium measurement (mass/ volume)Ordered By: Ivon Lopez on 12-31-2024 Potassium (Unsp spec) [Mass/Vol] 4.5 mmol/L 3.3-5.1 [facility] Protein Test strip Ql (U)Ord ered By: Ivon Lopez on 12-31-2024 Protein Ql (U) 30 mg/dl High Negative [facility] RBC Auto (Bld) [#/Vol]Ordere d By: Ivon Lopez on 12-31-2024 RBC (Bld) [#/Vol] 4.56 10*6/uL 4.2-5.4 [facility] Random urine creatinine shine urement (mass/volume)Ordered By: Ivon Lopez on 12-31-2024 Creatinine Unsp time (U) [Mass/Vol] 255.00 mg/dL High 28.00-217. 00 [facility] Screening total cholesterol/ high density lipoprotein (HDL) cholesterol ratioOrdered By: Ivon Lopez on 12-31-2024 Cholesterol.total/Cho lesterol in HDL [Mass ratio] 3.99 {ratio} [facility] Serum creatinine measurement (mass/volume)Ordered By: Ivon Lopez on 12-31-2024 Creatinine [Mass/Vol] 0.76 mg/dL 0.70-1.20 [facility] Serum globulin measurementOr dered By: Ivon Lopez on 12-31-2024 Globulin (S) [Mass/Vol] 2.9 g/dL 2.2-4.2 [facility] Serum glucose measurement (m ass/volume)Ordered By: Ivon Lopez on 12-31-2024 Glucose [Mass/Vol] 83 mg/dL 70-99 [facility] Serum or plasma alanine lewis otransferase (ALT) measurementOrdered By: Ivon Lopez on 12-31-2024 ALT [Catalytic activity/Vol] 24 U/L <35 [facility] Serum or plasma albumin shine urement (mass/volume)Ordered By: Ivon Lopez on 12-31-2024 Albumin [Mass/Vol] 4.3 g/dL 3.4-4.8 [facility] Serum or plasma albumin/glob ulin mass ratioOrdered By: Ivon Lpoez on 12-31-2024 Albumin/Globulin [Mass ratio] 1.5 {ratio} 0.9-2.4 [facility] Serum or plasma alkaline ann marie sphatase measurementOrdered By: Ivon Lopez on 12-31-2024 ALP [Catalytic activity/Vol] 88 U/L 35-104 [facility] Serum or plasma calcium shine urement (mass/volume)Ordered By: Ivon Lopez on 12-31-2024 Calcium [Mass/Vol] 9.4 mg/dL 7.6-11.0 [facility] Serum or plasma cholesterol in HDL measurement (mass/volume)Ordered By: Ivon Lopez on 12-31-2024 Cholesterol in HDL [Mass/Vol] 54 mg/dL >40 [facility] Comment on above: National Cholesterol Education Program (NCEP) guidelines:<40 mg/dL: Low HDL-cholesterol (major risk factor for CHD)>= 60 mg/dL: High HDL-cholesterol (negative risk factor for CHD)HDL-cholesterol is affected by a number of factors, e.g. smoking, exercise, hormones, sex and age. Serum or plasma cholesterol measurement (mass/volume)Ordered By: Ivon Lopez on 12-31-2024 Cholesterol [Mass/Vol] 214 mg/dL High <201 [facility] Comment on above: Cholesterol level, D esirable <200 mg/dLBorderline high cholesterol 200-239 mg/dLHigh cholesterol >=240 mg/dLRecommendations of the NCEP Adult Treatment Panel for the following risk-cutoff thresholds for the [place] population. Serum or plasma urea nitroge n measurement (mass/volume)Ordered By: Ivon Lopez on 12-31-2024 Urea nitrogen [Mass/Vol] 10 mg/dL 4-19 [facility] Sodium levelOrdered By: Tricia Lopez on 12-31-2024 Sodium [Moles/Vol] 142 mmol/L 133-145 [facility] Squamous epithelial cells de tection in urine sediment by light microscopyOrdered By: Ivon Lopez on 12-31-2024 Epithelial cells.squamous LM Ql (Urine sed) 25-50 SEEN /hpf 5-10 [facility] TSH DL <= 0.005 mIU/L QnOrde red By: Ivon Lopez on 12-31-2024 TSH Qn 2.070 uIU/mL 0.300-4.20 0 [facility] Thyroid Stim Hormone (TSH)on 12-31-2024 TSH 2.070 uIU/mL Normal 0.300-4.20 0 [facility] Comment on above: Performed By: #### L 400.0001, L500.2500, M100.2200 #### [facility] [address] [place], [address] Total proteinOrdered By: Jamilah Lopez on 12-31-2024 Protein [Mass/Vol] 7.2 g/dL 5.9-8.4 [facility] Transitional cells detection in urine sediment by light microscopyOrdered By: Ivon Lopez on 12-31-2024 Transitional cells LM Ql (Urine sed) 0-5 SEEN /hpf 0-5 [facility] Triglycerides measurementOrd ered By: Ivon Lopez on 12-31-2024 Triglyceride [Mass/Vol] 354 mg/dL High <199 [facility] Comment on above: The drugs N-Acetylcy steine and Metamizole may falsely depress this assay. Normal range: <150 mg/dLBorderline High: 150-199 mg/dLHigh: 200-499 mg/dLVery High: >500 mg/dL Urinalysis, Completeon 12-31 BACTERIA 2+ /hpf Normal None Seen [facility] Comment on above: Order Comment: Urine , Random Performed By: #### L 400.0001, L500.2500, M100.2200 #### [facility] [address] [place], [address] EPI,SQUAMOUS 25-50 SEEN Normal 5-10 [facility] Comment on above: Order Comment: Urine , Random Performed By: #### L 400.0001, L500.2500, M100.2200 #### [facility] [address] [place], [address] EPI,TRANSITION 0-5 SEEN Normal 0-5 [facility] Comment on above: Order Comment: Urine , Random Performed By: #### L 400.0001, L500.2500, M100.2200 #### [facility] [address] [place], [address] Mucus Ql (Urine sed) 3+ /hpf Normal [facility] Comment on above: Order Comment: Urine , Random Performed By: #### L 400.0001, L500.2500, M100.2200 #### [facility] [address] [place], [address] RBC 5-10 SEEN Normal 0-5 [facility] Comment on above: Order Comment: Urine , Random Performed By: #### L 400.0001, L500.2500, M100.2200 #### [facility] [address] [place], [address] WBC >100 SEEN Normal 0-5 [facility] Comment on above: Order Comment: Urine , Random Performed By: #### L 400.0001, L500.2500, M100.2200 #### [facility] [address] [place], [address] Urine albumin measurement wi detection limit of 20 mg/L or less (mass/volume)Ordered By: Ivon Lopez on 12-31-2024 Albumin DL <= 20 mg/L (U) [Mass/Vol] 26.8 mg/L <20 mg/L [facility] Urine clarityOrdered By: Jamilah Lopez on 12-31-2024 Clarity (U) Sl. Cloudy Clear [facility] Urine color determinationOrd ered By: Ivon Lopez on 12-31-2024 Color (U) Straw Yellow [facility] Urine glucose detectionOrder ed By: Ivon Lopez on 12-31-2024 Glucose Ql (U) Normal mg/dl Normal [facility] Urine leukocyte esterase det ection by dipstickOrdered By: Ivon Lopez on 12-31-2024 Leukocyte esterase Test strip Ql (U) 500 /ul High Negative [facility] Urine pHOrdered By: Ivon Lopez on 12-31-2024 pH (U) 5.0 [pH] 5.0 - 8.0 [facility] Urine sediment bacteria coun t by microscopy (number/high power field)Ordered By: Ivon Lopez on 12-31-2024 Bacteria LM.HPF (Urine sed) [#/Area] 2 /[HPF] None Seen [facility] Urine specific gravity measu rementOrdered By: Ivon Lopez on 12-31-2024 Specific gravity (U) [Rel density] 1.020 1.002-1.03 0 [facility] Urine urobilinogen measureme ntOrdered By: Ivon Lopez on 12-31-2024 Urobilinogen Ql (U) Normal mg/dl Normal [facility] Vitamin D,25 Hydroxyon 12-31 Vitamin D 25-OH 13.6 ng/mL Low 30-100 [facility] Comment on above: Result Comment: Florencia min D Status Deficiency: <20 ng/mL (50nmol/L) Insufficiency: 20-30 ng/mL (50-75 nmol/L) Sufficiency: 30-100 ng/mL (75-250 nmol/L) Toxicity: >100 ng/mL (>250 nmol/L) Performed By: #### L 400.0001, L500.2500, M100.2200 #### [facility] [address] [place] [address]. [place], [address] White blood cell (WBC) count Ordered By: Ivon Lopez on 12-31-2024 WBC (Bld) [#/Vol] 8.7 10*3/uL 4.4-11.0 [facility] White blood cell countOrdere d By: Ivon Lopez on 12-31-2024 White blood cell count >100 SEEN /hpf 0-5 [facility] CNPNon 06-07-2024 CNPN Telephone (Smarter Agent MobileCELIAS) ----- SONDRA CURRIE ([id number]) 1965 F Date Time Provider Department 06/07/24 [place] During your visit today, we recorded the following information about you: Peace Puri MA 06/07/2024 11:13 AM Signed Patient last seen on 05/07/2024. A mammogram was ordered. Patient called in asking if she could have that changed to have a thermogram? Patient can be reached back on her home phone at [phone] and it is ok to leave a detailed message if she does not answer. Shakira Faustin 06/07/2024 11:30 AM Signed Just noticed this patient has a screening order for a diagnostic issue I think we would need a DX mammography if not doing what patient requested. Shakira Faustin 06/07/2024 11:34 AM Signed Patient is requesting we use home phone at this time to contact her. [place] La MD 06/11/2024 9:21 AM Signed not sure what a thermogram is, i tried to order it and it gave me nothing Edmond Trejo RN 06/11/2024 11:24 AM Signed Contacted Pt and advised we do not have an option to order Thermogram and a mammogram is advised. Pt transferred to [facility] to schedule.SABRA Molina Ashley 06/11/2024 11:27 AM Signed Patient transferred to [facility] for schedule mammogram and US. Only screening mammogram order is available in chart, provider in previous messages stated diagnostic was to be completed. Please submit correct order then notify patient when available in chart for scheduling. Edmond Trejo RN 06/11/2024 11:50 AM Signed Order placed for diagnostic and sent to providers for signing.SABRA Molina Laurie, MA 06/12/2024 1:10 PM Signed Order placed. Please contact pt to schedule. ANNA Lester Cheyenne Lee 06/12/2024 2:56 PM Signed LVM for patient to schedule, 1st attempt. Colleen Coleman June 12, 2024 2:56 PM Richelle Zambrano 07/16/2024 10:00 AM Signed Patient called to schedule diagnostic mammogram. Current order is closed. Please notify patient at ph. [phone] when new order has been submitted. Patient authorized callers to leave a detailed VM. She was informed that she will need to speak with PFA for financial clearance prior to scheduling due to insurance being considered self pay by [facility]. Please transfer patient to PFA line for FC at ph. [phone]. Please provide the patient who EMRN to enter into the prompts. Patient will then need to follow up with schedulers at [facility] after she receive clearance from the financial department. Bee Desai RN 07/16/2024 10:18 AM Signed Addended by: BEE DESAI on: 07/16/2024 10:18 AM Modules accepted: Orders Polly Peña APRN.CNP 07/16/2024 10:25 AM Signed Order signed. Polly Peña APRN.CNP 07/16/2024 10:25 AM Signed Addended by: POLLY PEÑA on: 07/16/2024 10:25 AM Modules accepted: Orders Allergies As of Date: 06/07/2024 (No Known Allergies) Date Reviewed: 05/07/2024 Reviewed by: Rosa Kent LPN - Fully Assessed Reason for Visit: Patient Question [8197] Orders [681] Cmt: Diagnostic mammogram Primary Visit Diagnosis:Abnormal finding on breast imaging [R92.8] Order(s):GREG Thompson MASTER BILATERAL [[id number]] Order #: [id number] FUTURE Prescriptions as of 07/16/2024 - colestipol (COLESTID) 1 gram tablet Take by mouth once daily. - SUMAtriptan (IMITREX) 100 mg tablet Take by mouth as needed. - cholestyramine low-calorie (CHOLESTYRAMINE LIGHT) 4 gram packet Take 1 packet mix in 8 oz of water daily. (may use generic) - Minocycline HCl 50 mg ORAL tablet Take 50 mg by mouth as needed. - PROPRANOLOL HCL (INDERAL ORAL) Take by mouth. Problem List As Of Date 06/07/2024 Noted Resolved ABNORMAL FINDINGS-BREAST [793.8] 07/08/2003 Encounter Status:Closed by EDMOND TREJO on 06/11/24 [facility] 05-07-2024 CNOV Office Visit (GENSWS ) ----- SONDRA CURRIE ([id number]) 1965 F Date Time Provider Department 05/07/24 3:30 PM [place] During your visit today, we recorded the following information about you: Temperature Pulse Blood pressure Weight 98.5 degrees 80/minute 132/84 114.9 kg Height 1.6 m Rosa KentIVONNE 05/07/2024 4:16 PM Signed REVIEW OF SYSTEMS: General: The patient notes fatigue, denies weight loss, notes weight gain, denies feeling hot, and denies feelings of cold. Eyes: The patient denies glaucoma, denies eye injury/surgery, wears glasses or contacts. Ear/Nose/Throat: The patient denies allergies, denies hayfever, denies ear infections, and denies bloody noses. Cardiovascular: The patient denies chest pain, denies heart disease, denies high blood pressure,denies cardiac stent, denies prior heart attack, denies irregular heart beat, denies high cholesterol, denies poor circulation, denies heart failure, other cardiac issues, denies claudication, denies cold feet, denies peripheral arterial stent. Respiratory: The patient denies tuberculosis, denies pneumonia, denies frequent cough, denies pulmonary embolism, denies shortness of breath, and denies coughing up blood. Gastrointestinal: The patient denies difficulty swallowing, notes acid reflux, denies ulcers, denies vomiting, denies jaundice/hepatitis, denies gallbladder problems, denies black or tarry stools, denies hemorrhoids, denies bleeding from rectum, notes diverticulitis, denies constipation, notes diarrhea, denies loss of stool control, and denies hernias. Kidney/Bladder: The patient notes kidney stones, denies urine infections, and denies bloody urine. Skin: The patient denies a history of skin cancer, denies bleeding/changing moles, and denies a history of skin rash. Neurologic: The patient denies a history of epilepsy/convulsions, notes headaches, denies head/spinal injuries, and denies stroke/TIA. Psychiatric: The patient denies psychiatric medications, denies depression, and denies voices, denies substance abuse. Endocrine: The patient denies thyroid disorders, denies diabetes, and denies hormonal problems. Hematologic: The patient denies a history of bruising, denies bleeding, and notes anemia, notes blood clots. Infections: The patient denies a history of measles and mumps, denies rheumatic fever, and denies sexually transmitted diseases. Musculoskeletal: The patient notes back pain/injury, denies back problems, denies sciatica, denies knee/foot trouble, denies arthritis, or denies gout. When was patient's last Mammogram screening? 2003 Last Colonoscopy: 2004 IVONNE Lance Daniel P, MD 05/07/2024 4:16 PM Signed HISTORY AND PHYSICAL - BREAST COMPLAINT Sondra Raymundoer 1965 REFERRING PHYSICIAN: Ivon Lopez,* CHIEF COMPLAINT: Abnormal finding on breast imaging (primary encounter diagnosis) HPI: The patient is a 59 year old female with a complaint of an abnormal CT scan of the chest that showed a 2 cm spiculated nodule in the medial lower left breast. States that this is significantly increased in size from the previous CAT scan of the abdomen back in January 11, 2024. It is highly suspicious for primary breast neoplasia. Patient has been complaining of left breast pain now for better than a year. She has not noticed any changes in herself breast exam The patient is being seen by me today at the request of Dr. Ivon Lopez, DO ADRIENNE for my opinion and advice regarding Abnormal finding on breast imaging (primary encounter diagnosis). PAST MEDICAL HISTORY Diagnosis Date Blood pressure elevated without history of HTN IBS (irritable bowel syndrome) Knee pain Migraines 1981 PAST SURGICAL HISTORY Procedure Laterality Date PAST SURGICAL HISTORY OF Right 2019 Meniscus PILONIDAL CYST/SINUS EXCISION TONSILLECTOMY HX 1979 Current Outpatient Medications Medication Sig Dispense Refill colestipol (COLESTID) 1 gram tablet Take by mouth once daily. SUMAtriptan (IMITREX) 100 mg tablet Take by mouth as needed. Minocycline HCl 50 mg ORAL tablet Take 50 mg by mouth as needed. PROPRANOLOL HCL (INDERAL ORAL) Take by mouth. cholestyramine low-calorie (CHOLESTYRAMINE LIGHT) 4 gram packet Take 1 packet mix in 8 oz of water daily. (may use generic) (Patient not taking: Reported on 05/07/2024) 30 Packet 2 No current facility-administered medications for this visit. ALLERGIES: Patient has no known allergies. PERSONAL HISTORY: Social History Tobacco Use Smoking status: Never Smokeless tobacco: Never Vaping Use Vaping status: Never Used Substance Use Topics Alcohol use: Yes Comment: infrequently Drug use: Never FAMILY HISTORY: FAMILY HISTORY Problem Relation Age of Onset Breast Cancer Maternal Grandmother dx age ?50; 51 from breast can (more content not included)... Normal [facility] Chest without Contraston Chest without Contrast [facility] Imaging Services [address] [place] [address] Chest without Contrast MR#: [id number] Acct: [id number] Name: SONDRA CURRIE Rep #: [id number] : 1965 F 59 From: Cassie Sanchez MD PCP: Dr. Ivon Lopez DO Status: REG CLI Study: Chest without Contrast Date of Exam: 03/23/24 Exam# [id number] Ordering Dr: Ivon Lopez DO ADDENDUM by Dr. Cassie Sanchez MD on 03/26/24 at 0332 [id number] EXAM: CT CHEST WITHOUT INTRAVENOUS CONTRAST CLINICAL INDICATION: LUNG NODULE TECHNIQUE: Helically acquired images were obtained of the chest without intravenous contrast. This CT exam was performed using one or more of the following dose reduction techniques: automated exposure control, adjustment of the mA and/or kV according to patient size, and/or use of iterative reconstruction technique. RADIATION DOSE: CTDIvol = 21.78 mGy, DLP = 768.71 mGy-cm COMPARISON: Ct FINDINGS: LUNGS AND PLEURAL SPACES: Unremarkable. No pneumothorax. No pulmonary nodules, infiltrates or effusions. HEART: Unremarkable. No pericardial effusion. Normal heart size. No significant coronary artery calcifications. MEDIASTINUM: Slight fluid in the superior pericardial recesses and small mediastinal lymph nodes, not no surrounding pathologic by size. Small hiatal hernia. Esophagus is unremarkable. THYROID: Unremarkable. No thyroid lesions. BONES/JOINTS: Mild degenerative spine changes. No suspicious lytic or blastic abnormality. VASCULATURE: See above. UPPER ABDOMEN: Most of the abdomen is not included, spleen is not included. Region of the gallbladder is not included. Unremarkable mid to distal pancreas, adrenals. Kidneys are not fully included. Minimal diverticulosis of the splenic flexure region. BREASTS: The breasts are not fully included but there is an ill-defined, solid, and highly spiculated nodule of roughly 2 cm x 1.2 cm x 1.3 cm in the medial apparently lower left breast, anterior margin estimated to be 1.8 cm deep to the skin and 4.9 cm to the left of midline. This appears to be in the region of a small and better circumscribed 1 cm by 8mm by 1.1 cm nodular focus in this location on January 11, [address] Significant increase in size, and significant change in spiculation and irregular margins. This projects anterior to the third-fourth ribs with the patient supine. Highly suspicious for primary breast neoplasm. No suspicious axillary or internal mammary region adenopathy. 03/26/24331 Date cc: Dr. Ivon Lopez, DO * Signed ADDENDUM by Dr. Cassie Sanchez MD on 03/26/[address]/Chest without Contrast IMPRESSION: 1. Solid, very irregular, highly spiculated, and rapidly enlarging mass of 2 cm maximum diameter in the medial left breast. This is highly suspicious for a primary breast neoplasm. RECOMMENDATION: Referral for biopsy, breast imaging. 2. No acute intrathoracic abnormality. No pulmonary nodules or significant parenchymal changes. Small hiatal hernia. 3. Nonstandard communication type III protocol initiated, to contact the office in the morning N.B. : Richelle Marsh OT, confirmed on 03/26/2024 14:40:48 (ET) that the healthcare facility has received the radiology report. Electronically Signed: Cassie Sanchez MD at 3:32 EST , 03/26/24 1447 Date cc: Dr. Ivon Lopez DO * Signed ACR Level 3 findings have been noted. An addendum which confirms receipt of the report will follow. [id number] EXAM: CT CHEST WITHOUT INTRAVENOUS CONTRAST CLINICAL INDICATION: LUNG NODULE TECHNIQUE: Helically acquired images were obtained of the chest without intravenous contrast. This CT exam was performed using one or more of the following dose reduction techniques: automated exposure control, adjustment of the mA and/or kV according to patient size, and/or use of iterative reconstruction technique. RADIATION DOSE: CTDIvol = 21.78 mGy, DLP = 768.71 mGy-cm COMPARISON: Ct FINDINGS: LUNGS AND PLEURAL SPACES: Unremarkable. No pneumothorax. No pulmonary nodules, infiltrates or effusions. HEART: Unremarkable. No pericardial effusion. Normal heart size. No significant coronary artery calcifications. MEDIASTINUM: Slight fluid in the superior pericardial recesses and small mediastinal lymph nodes, not no surrounding pathologic by size. Small hiatal hernia. Esophagus is unremarkable. THYROID: Unremarkable. No thyroid lesions. BONES/JOINTS: Mild degenerative spine changes. No suspicious lytic or blastic abnormality. VASCULATURE: See above. UPPER ABDOMEN: Most of the abdomen is not in (more content not included)... Normal [facility] Prothrombin Time w/INRon INR Coag (PPP) [Relative time] 2.5 {INR} Normal [facility] Comment on above: Performed By: #### L 300.3900 #### [facility] [address] [place], [address] PT Coag (PPP) [Time] 26.6 s High 11.7-14.9 [facility] Comment on above: Performed By: #### L 300.3900 #### [facility] [address] [place], [address] Venous Duplex US - Vinod Extre [facility] 03-16-2024 Venous Duplex US - Vinod Extrem [facility] Cardiovascular Services [address] [place] [address] Venous Duplex US - Vinod Extrem 03/16/24 1404 MR#: [id number] Acct: [id number] Name: SONDRA CURRIE Rep #: [id number] : 1965 59 From: Gary Alonso MD Attending Dr: Dr. Ivon Lopez DO Status: R EG CLI Ordering Dr: Ivon Lopez DO Date: 03/16/24 Location: [facility] Sex: F C Admitted: Reason For Study: Left leg DVT RIGHT LEFT GSV is normal. GSV is normal. CFV is compressible, spontaneous, phasic, CFV is compressible, spontaneous, phasic, competent and demonstrates normal competent, and demonstrates normal augmentation. augmentation. FV is compressible, spontaneous, phasic, FV is compressible, spontaneous, phasic, competent and demonstrates normal competent and demonstrates normal augmentation. augmentation. POP V is compressible, spontaneous, phasic, POP V is compressible, spontaneous, phasic, competent and demonstrates normal competent and demonstrates normal augmentation. augmentation. T/P Trunk is compressible. T/P Trunk is compressible. PTV is compressible. PTV is compressible. RT PerV is compressible. LT PerV is compressible. Procedure Left GastrocV is compressible. This is a venous duplex using B-mode, color flow and spectral Doppler. Exam performed in department. Compared to 07/04/2023. A preliminary report was called and/or faxed to Dr. Lopez. VL/Venous Duplex US - Vinod Extrem Interpretation Summary Deep veins of the lower extremities are bilaterally patent and compressible segmentally. There is no evidence of deep vein thrombosis on either side. Valvular competence appears intact within the proximal deep venous systems bilaterally. The great saphenous veins appear bilaterally patent and compressible segmentally. ___ Ordering Physician: Ivon Lopez Referring Physician: Ivon Lopez Performed By: Suzette Clay RVT 03/19/24 1657 Date Gary Alonso MD CC: Dr. Ivon Lopez, DO Date Dictated: 03/16/24 1404 Date Transcribed: 03/19/24 1657 Vehicle Service Attendant: Signed Normal [facility] Kidney and Bladderon 024 Kidney and Bladder [facility] Imaging Services [address] [place] [address] Kidney and Bladder MR#: [id number] Acct: [id number] Name: SONDRA CURRIE Rep #: [id number] : 1965 F 59 From: Nilson Beltrán PCP: Dr. Ivon Lopez DO Status: REG CLI Study: Kidney and Bladder Date of Exam: 03/08/24 Exam# [id number] Ordering Dr: Ivon Lopez DO [id number] PROCEDURE: RENAL ULTRASOUND - COMPLETE REASON FOR EXAM: Female, 59 years old. Follow-up complex left renal cyst TECHNIQUE: Ultrasound evaluation of the bilateral kidneys was performed with real-time ultrasonography and static grayscale imaging. COMPARISON: CT scan of the abdomen and pelvis of 09/11/2023 FINDINGS: RIGHT KIDNEY: Normal location of the right kidney which is normal in size. The right kidney measures 12.4 x 5.6 x 5 cm. There is a normal cortex of the right kidney. The renal cortex measures 1.8 cm. There is no right renal mass or cyst. There are no right renal calculi. There is no right hydronephrosis. DISTAL RIGHT URETER: There is non-visualization of the distal right ureter. There is no demonstrated right ureterovesical junction calculus. There is a visualized right ureteral jet. LEFT KIDNEY: Normal location of the left kidney which is normal in size. The left kidney measures 10.8 x 4.8 x 5.8 cm. There is a normal cortex of the left kidney. The renal cortex measures 2.2 cm. There is no left renal mass or cyst. There are no left renal calculi. The complex left renal cyst could not be visualized on this exam. There is no left hydronephrosis. DISTAL LEFT URETER: There is non-visualization of the distal left ureter. There is no demonstrated left ureterovesical junction calculus. There is a visualized left ureteral jet. BLADDER: The distended urinary bladder has a volume of 273 ml. There is a normal wall thickness of the distended urinary bladder. There is no demonstrated mass within the urinary bladder. There is no demonstrated bladder calculi. US/Kidney and Bladder IMPRESSION: 1. No evidence of hydronephrosis. 2. Previously noted left renal cyst could not be visualized on this examination. Electronically Signed: Nilson Cheng MD at 15:54 EDT , CC: Dr. Ivon Lopez, Vehicle Service Attendant: Signed Normal [facility] Prothrombin Time w/INRon INR Coag (PPP) [Relative time] 2.3 {INR} Normal [facility] Comment on above: Performed By: #### L 400.0001, L500.2500, M100.2200 #### [facility] [address] [place], [address] PT Coag (PPP) [Time] 25.0 s High 11.7-14.9 [facility] Comment on above: Performed By: #### L 400.0001, L500.2500, M100.2200 #### [facility] [address] [place], [address] Absolute lymphocyte countOrd ered By: Trey Kern on 09-11-2023 Lymphocytes Auto (Unsp spec) [#/Vol] 1.11 10*3/uL 0.83-4.51 [facility] Automated lymphocyte count a s percentage of total leukocytesOrdered By: Trey Kern on 09-11-2023 Lymphocytes/100 WBC Auto (Unsp spec) 9.1 % 19-41 [facility] Basophil percentageOrdered B y: Trey Kern on 09-11-2023 Basophil percentage 0 SEEN /hpf 0-5 [facility] Basophils/100 WBC (Bld) 0.6 % 0-1 [facility] Bilirubin [Mass/Vol] 0.30 mg/dL 0.20-1.00 [facility] Comment on above: For patients on eltr ombopag therapy, use of Dimension Conner TBIL is not recommended. Chloride [Moles/Vol] 112 mmol/L 98-107 [facility] Eosinophils/100 WBC (Bld) 0.6 % 0-5 [facility] Glucose [Mass/Vol] 138 mg/dL 74-106 [facility] Comment on above: Fasting Glucose resu lt greater than or equal to 126 mg/dL suggests DIABETES MELLITUS per A.D.A. criteria. Hemoglobin (Bld) [Mass/Vol] 13.1 g/dL 12.0-15.0 [facility] Monocytes/100 WBC (Bld) 3.7 % 0-10 [facility] Neutrophils (Bld) [#/Vol] 10.5 10*3/uL 2.0-7.7 [facility] Neutrophils/100 WBC (Bld) 85.1 % 47-70 [facility] Potassium [Moles/Vol] 4.1 mmol/L 3.5-5.1 [facility] Protein [Mass/Vol] 7.4 g/dL 6.4-8.2 [facility] Sodium [Moles/Vol] 142 mmol/L 136-145 [facility] WBC (Bld) [#/Vol] 12.3 10*3/uL 4.4-11.0 [facility] Bilirubin Test strip Ql (U)O rdered By: Trey Kern on 09-11-2023 Bilirubin Ql (U) Negative Negative [facility] Determination of erythrocyte mean corpuscular volume (MCV)Ordered By: Trey Kern on 09-11-2023 MCV (RBC) [Entitic vol] 86.6 fL 81-99 [facility] Direct bilirubinOrdered By: Trey Kern on 09-11-2023 Bilirubin.direct [Mass/Vol] 0.08 mg/dL 0.00-0.30 [facility] Erythrocyte distribution wid th ratioOrdered By: Trey Kern on 09-11-2023 Erythrocyte distribution width (RBC) [Ratio] 13.2 % 11.6-14.6 [facility] Erythrocyte distribution wid th standard deviationOrdered By: Trey Kern on 09-11-2023 Erythrocyte distribution width (RBC) [Entitic vol] 41.2 fL 35.1-43.9 [facility] Hematocrit Auto (Bld) [Volum e fraction]Ordered By: Trey Kern on 09-11-2023 Hematocrit (Bld) [Volume fraction] 41.5 % 37-47 [facility] Immature granulocytes/100 WB C Auto (Bld)Ordered By: Trey Kern on 09-11-2023 Immature granulocytes/100 WBC (Bld) 0.900 % 0.0-0.9 [facility] Comment on above: IG% - Immature Granu locytes (promyelocytes, myelocytes and metamyelocytes) > 1% indicates that a LEFT SHIFT is Present. Ketones Test strip Ql (U)Ord ered By: Trey Kern on 09-11-2023 Ketones Ql (U) Negative Negative [facility] - Chemistry and C hemistry - challengeOrdered By: Trey Kern on 09-11-2023 ALP [Catalytic activity/Vol] 85 U/L 45-117 [facility] ALT [Catalytic activity/Vol] 22 U/L 13-56 [facility] CO2 [Moles/Vol] 26.0 mmol/L 21.0-32.0 [facility] Globulin (S) [Mass/Vol] 3.6 g/dL 2.2-4.2 [facility] Lipase [Catalytic activity/Vol] 53 U/L 13-75 [facility] Comment on above: Please note:LIPASE r evised reference range effective 22. New Lipase methodology. Expected to produce lower values than the previous assay method. NEW Reference Range: 13 - 75 U/L Urea nitrogen/Creatinine [Mass ratio] 10.6 mg/mg 10-20 [facility] - CoagulationOrde red By: Trey Kern on 09-11-2023 INR Coag (Bld) [Relative time] 1.8 {INR} [facility] PT Coag (PPP) [Time] 20.8 s 11.7-14.9 [facility] - Hematology and Cell countsOrdered By: Trey Kern on 09-11-2023 MCH (RBC) [Entitic mass] 27.3 pg 27.0-32.0 [facility] MCHC (RBC) [Mass/Vol] 31.6 g/dL 32-36 [facility] Nucleated RBC/100 WBC (Bld) [Ratio] 0 % 0-5 [facility] Platelet mean volume (Bld) [Entitic vol] 10.7 fL 6.2-12.0 [facility] Platelets (Bld) [#/Vol] 265 10*3/uL 150-450 [facility] Mucus LM Ql (Urine sed)Order ed By: Trey Kern on 09-11-2023 Mucus Ql (Urine sed) 0 SEEN /hpf [facility] Nitrite Test strip Ql (U)Ord ered By: Trey Kern on 09-11-2023 Nitrite Ql (U) Negative Negative [facility] No Panel InformationOrdered By: Trey Kern on 09-11-2023 Urine RBC 5-10 SEEN /hpf 0-5 [facility] Estimated Creatinine Clearance Calc 59.14 ml/min [facility] Estimated GFR (MDRD) Amer 57 mL/min >60 [facility] Comment on above: GFR Calc Estimated GFR (MDRD) Non-Af Amer 47 mL/min >60 [facility] Comment on above: Non- GFR Calc Protein Test strip Ql (U)Ord ered By: Trey Kern on 09-11-2023 Protein Ql (U) 15 mg/dl Negative [facility] RBC Auto (Bld) [#/Vol]Ordere d By: Trey Kern on 09-11-2023 RBC (Bld) [#/Vol] 4.79 10*6/uL 4.2-5.4 [facility] Serum or plasma calcium shine urement (mass/volume)Ordered By: Trey Kern on 09-11-2023 Calcium [Mass/Vol] 8.9 mg/dL 8.5-10.1 [facility] Serum or plasma creatinine m easurement (mass/volume)Ordered By: Trey Kern on 09-11-2023 Creatinine [Mass/Vol] 1.23 mg/dL 0.55-1.02 [facility] Comment on above: The validity of the calculated GFR & GFRAA in patients over 70 years has not been determined. Clinical correlation is essential. Serum or plasma urea nitroge n measurement (mass/volume)Ordered By: Trey Kern on 09-11-2023 Urea nitrogen [Mass/Vol] 13 mg/dL 7-18 [facility] Squamous epithelial cells de tection in urine sediment by light microscopyOrdered By: Trey Kern on 09-11-2023 Epithelial cells.squamous LM Ql (Urine sed) 0-5 SEEN /hpf 5-10 [facility] Thin prep Papanicolaou smear with manual screeningOrdered By: Trey Kern on 09-11-2023 Thin prep Papanicolaou smear with manual screening 3.8 g/dL 3.2-5.0 [facility] Thin prep Papanicolaou smear with manual screening < 3 U/L 15-37 [facility] Thin prep Papanicolaou smear with manual screening 4 5-15 [facility] Urine blood detectionOrdered By: Trey Kern on 09-11-2023 RBC Ql (U) 250 /ul Negative [facility] Urine clarityOrdered By: Candido Kern on 09-11-2023 Clarity (U) Clear Clear [facility] Urine color determinationOrd ered By: Trey Kern on 09-11-2023 Color (U) Yellow Yellow [facility] Urine glucose detectionOrder ed By: Trey Kern on 09-11-2023 Glucose Ql (U) Normal mg/dl Normal [facility] Urine leukocyte esterase det ection by dipstickOrdered By: Trey Kern on 09-11-2023 Leukocyte esterase Test strip Ql (U) 100 /ul Negative [facility] Urine pHOrdered By: Trey mcgill on 09-11-2023 pH (U) 6.0 [pH] 5.0 - 8.0 [facility] Urine sediment bacteria coun t by microscopy (number/high power field)Ordered By: Trey Kern on 09-11-2023 Bacteria LM.HPF (Urine sed) [#/Area] 0 /[HPF] None Seen [facility] Urine specific gravity measu rementOrdered By: Trey Kern on 09-11-2023 Specific gravity (U) [Rel density] 1.010 1.002-1.03 0 [facility] Urine urobilinogen measureme ntOrdered By: Trey Kern on 09-11-2023 Urobilinogen Ql (U) Normal mg/dl Normal [facility] Bilirubin Test strip Ql (U)O rdered By: Ivon Lopez on 09-08-2023 Bilirubin Ql (U) Negative Negative [facility] Culture, urineOrdered By: Joshua Lopez on 09-08-2023 Bacteria identified Cx Nom (U) Culture exhibits no growth. [facility] Ketones Test strip Ql (U)Ord ered By: Ivon Lopez on 09-08-2023 Ketones Ql (U) 15 mg/dl Negative [facility] - CoagulationOrde red By: Ivon Lopez on 09-08-2023 INR Coag (Bld) [Relative time] 3.6 {INR} [facility] PT Coag (PPP) [Time] 35.7 s 11.7-14.9 [facility] Nitrite Test strip Ql (U)Ord ered By: Ivon Lopez on 09-08-2023 Nitrite Ql (U) Negative Negative [facility] Protein Test strip Ql (U)Ord ered By: Ivon Lopez on 09-08-2023 Protein Ql (U) 500 mg/dl Negative [facility] Urine blood detectionOrdered By: Ivon Lopez on 09-08-2023 RBC Ql (U) 250 /ul Negative [facility] Urine clarityOrdered By: Jamilah Lopez on 09-08-2023 Clarity (U) Turbid Clear [facility] Urine color determinationOrd ered By: Ivon Lopez on 09-08-2023 Color (U) Brown Yellow [facility] Urine glucose detectionOrder ed By: Ivon Lopez on 09-08-2023 Glucose Ql (U) Normal mg/dl Normal [facility] Urine leukocyte esterase det ection by dipstickOrdered By: Ivon Lopez on 09-08-2023 Leukocyte esterase Test strip Ql (U) 25 /ul Negative [facility] Urine pHOrdered By: Ivon Lopez on 09-08-2023 pH (U) 6.5 [pH] 5.0 - 8.0 [facility] Urine specific gravity measu rementOrdered By: Ivon Lopez on 09-08-2023 Specific gravity (U) [Rel density] 1.020 1.002-1.03 0 [facility] Urine urobilinogen measureme ntOrdered By: Ivon Lopez on 09-08-2023 Urobilinogen Ql (U) Normal mg/dl Normal [facility] - CoagulationOrde red By: Ivon Lopez on 08-12-2023 INR Coag (Bld) [Relative time] 1.1 {INR} [facility] PT Coag (PPP) [Time] 13.8 s 11.7-14.9 [facility] Basophil percentageOrdered B y: Prakash Mohan on 06-14-2023 Chloride [Moles/Vol] 110 mmol/L 98-107 [facility] Glucose [Mass/Vol] 91 mg/dL 74-106 [facility] Hemoglobin (Bld) [Mass/Vol] 12.6 g/dL 12.0-15.0 [facility] Potassium [Moles/Vol] 4.2 mmol/L 3.5-5.1 [facility] Sodium [Moles/Vol] 138 mmol/L 136-145 [facility] WBC (Bld) [#/Vol] 6.8 10*3/uL 4.4-11.0 [facility] Determination of erythrocyte mean corpuscular volume (MCV)Ordered By: Prakash Mohan on 06-14-2023 MCV (RBC) [Entitic vol] 89.5 fL 81-99 [facility] Erythrocyte distribution wid th ratioOrdered By: Prakash Mohan on 06-14-2023 Erythrocyte distribution width (RBC) [Ratio] 13.1 % 11.6-14.6 [facility] Erythrocyte distribution wid th standard deviationOrdered By: Prakash Mohan on 06-14-2023 Erythrocyte distribution width (RBC) [Entitic vol] 43.0 fL 35.1-43.9 [facility] Hematocrit Auto (Bld) [Volum e fraction]Ordered By: Prakash Mohan on 06-14-2023 Hematocrit (Bld) [Volume fraction] 40.8 % 37-47 [facility] - Chemistry and C hemistry - challengeOrdered By: Prakash Mohan on 06-14-2023 CO2 [Moles/Vol] 25.0 mmol/L 21.0-32.0 [facility] Urea nitrogen/Creatinine [Mass ratio] 16.5 mg/mg 10-20 [facility] - Hematology and Cell countsOrdered By: Prakash Mohan on 06-14-2023 MCH (RBC) [Entitic mass] 27.6 pg 27.0-32.0 [facility] MCHC (RBC) [Mass/Vol] 30.9 g/dL 32-36 [facility] Platelets (Bld) [#/Vol] 230 10*3/uL 150-450 [facility] No Panel InformationOrdered By: Prakash Mohan on 06-14-2023 Estimated GFR (MDRD) Amer 105 mL/min >60 [facility] Comment on above: GFR Calc Estimated GFR (MDRD) Non-Af Amer 87 mL/min >60 [facility] Comment on above: Non- GFR Calc Platelet mean volume Jc-Ec ker (Bld) [Entitic vol]Ordered By: Prakash Mohan on 06-14-2023 Platelet mean volume (Bld) [Entitic vol] 10.8 fL 6.2-12.0 [facility] RBC Auto (Bld) [#/Vol]Ordere d By: Prakash Mohan on 06-14-2023 RBC (Bld) [#/Vol] 4.56 10*6/uL 4.2-5.4 [facility] Serum or plasma calcium shine urement (mass/volume)Ordered By: Prakash Mohan on 06-14-2023 Calcium [Mass/Vol] 8.7 mg/dL 8.5-10.1 [facility] Serum or plasma creatinine m easurement (mass/volume)Ordered By: Prakash Mohan on 06-14-2023 Creatinine [Mass/Vol] 0.73 mg/dL 0.55-1.02 [facility] Comment on above: The validity of the calculated GFR & GFRAA in patients over 70 years has not been determined. Clinical correlation is essential. Serum or plasma urea nitroge n measurement (mass/volume)Ordered By: Prakash Mohan on 06-14-2023 Urea nitrogen [Mass/Vol] 12 mg/dL 7-18 [facility] Thin prep Papanicolaou smear with manual screeningOrdered By: Prakash Mohan on 06-14-2023 Thin prep Papanicolaou smear with manual screening 3 5-15 [facility] Whole blood hemoglobin A1c/t otal hemoglobin ratio (mass fraction)Ordered By: Prakash Mohan on 06-14-2023 HbA1c (Bld) [Mass fraction] 5.8 % 3.8-5.6 [facility] Comment on above: Normal < 5.7 % Predi abetic 5.7 - 6.4 % Diabetic >or= 6.5 % Please note range changes. CHEST 2 VIEW PA AND LATon CHEST 2 VIEW PA AND LAT Patient Name: SONDRA CURRIE STUDY: TH CHEST 2 VIEW PA AND LAT; 02/11/2023 3:55 pm INDICATION: difficulty taking deep breath/rib fractures. COMPARISON: CT chest dated 01/15/2023 ACCESSION NUMBER(S): [id number] ORDERING CLINICIAN: MARIBELL LUCIO TECHNIQUE: FINDINGS: The heart is normal in size. There is no consolidation or pleural fluid. There is no obvious pneumothorax. COMPARISON OF FINDING: Rib fractures visible on the chest CT of the left not obvious IMPRESSION: No acute cardiopulmonary disease. Electronically signed by: SASHA VOGT MD [facility] Chest 2 Viewson No acute cardiopulmo nary disease. GE RIS Interpreted By: SASHA IYER MD Patient Name: SONDRA CURRIE STUDY: TH CHEST 2 VIEW PA AND LAT; 02/11/2023 3:55 pm INDICATION: difficulty taking deep breath/rib fractures. COMPARISON: CT chest dated 01/15/2023 ACCESSION NUMBER(S): [id number] ORDERING CLINICIAN: MARIBELL LUCIO TECHNIQUE: FINDINGS: The heart is normal in size. There is no consolidation or pleural fluid. There is no obvious pneumothorax. COMPARISON OF FINDING: Rib fractures visible on the chest CT of the left not obvious GE RIS Sasha Vogt MD - 02/11/2023 Interpreted By: SASHA VOGT MD Patient Name: SONDRA CURRIE STUDY: TH CHEST 2 VIEW PA AND LAT; 02/11/2023 3:55 pm INDICATION: difficulty taking deep breath/rib fractures. COMPARISON: CT chest dated 01/15/2023 ACCESSION NUMBER(S): [id number] ORDERING CLINICIAN: MARIBELL LUCIO TECHNIQUE: FINDINGS: The heart is normal in size. There is no consolidation or pleural fluid. There is no obvious pneumothorax. COMPARISON OF FINDING: Rib fractures visible on the chest CT of the left not obvious IMPRESSION: No acute cardiopulmonary disease. [facility] Work Phone: Radiology Study observation (narrative) [facility] Work Phone: XR Chest 2 ViewsOrdered By: Sasha Vogt on 02-11-2023 [facility] Work Phone: CT CHEST WO CONTRASTon 01-15 CT CHEST WO CONTRAST Patient Name: SONDRA CURRIE STUDY: CT CHEST WO CONTRAST; 01/15/2023 9:41 am INDICATION: fall on 12/13/22 with lung and rib contusion: seen in [place] [facility] on 12/15/22. COMPARISON: No available comparisons. ACCESSION NUMBER(S): [id number] ORDERING CLINICIAN: MARIBELL LUCIO TECHNIQUE: Noncontrast CT images of the chest were performed with coronal and sagittal reformatted images. FINDINGS: SUPPORT DEVICES: None. CHEST WALL AND LOWER NECK: No supraclavicular or axillary lymphadenopathy by CT size criteria. MEDIASTINUM AND SLOAN: No lymphadenopathy by CT size criteria. Small hiatal hernia. VESSELS: The thoracic aorta and main pulmonary artery are normal in caliber. HEART: The heart size is normal. No pericardial effusion. LUNG, PLEURA, LARGE AIRWAYS: Minor curvilinear densities left lower chest compatible with platelike atelectasis or scar. No consolidation, edema, effusion, or pneumothorax. 3 mm peripheral nodule right mid chest series 9, image 197 most likely incidental. UPPER ABDOMEN: Limited images through the upper abdomen are unremarkable. BONES: Findings compatible with subacute healing rib fracture deformities involving the left anterolateral 4th through 8th ribs, and right anterolateral 4th through 8th ribs. IMPRESSION: Findings compatible with subacute bilateral anterolateral 4th through 8th rib fracture deformities. Minor left basilar platelike atelectasis or scar. Incidental Finding: A non-calcified pulmonary nodule/ multiple non-calcified pulmonary nodules measuring less than 6 mm, likely benign. (-YCF-) Instructions: No further follow-up is required, however, if the patient has high risk factors for primary lung malignancy, follow-up noncontrast CT scan chest in 12 months may be obtained. (Arsalan Miner et al., Guidelines for management of incidental pulmonary nodules detected on CT images: From the Fleischner Society 2017, Radiology. 2017 Nov;284 (1):228-243.) [id number] Electronically signed by: ERVIN AMARAL MD [facility] Absolute lymphocyte counton 02-02-2022 Lymphocytes Auto (Unsp spec) [#/Vol] 1.74 10*3/uL 0.83-4.51 [facility] Work Phone: Basophil percentageon 2021 Basophils/100 WBC (Bld) 0.4 % 0-1 [facility] Work Phone: Chloride [Moles/Vol] 110 mmol/L 98-107 [facility] Work Phone: Eosinophils/100 WBC (Bld) 1.9 % 0-5 [facility] Work Phone: Glucose [Mass/Vol] 108 mg/dL 74-106 [facility] Work Phone: Comment on above: Fasting Glucose resu lt from 100 to 125 mg/dL suggests IMPAIRED HOMEOSTASIS per A.D.A. criteria. Neutrophils (Bld) [#/Vol] 4.6 10*3/uL 2.0-7.7 [facility] Work Phone: Neutrophils/100 WBC (Bld) 65.8 % 47-70 [facility] Work Phone: Potassium [Moles/Vol] 4.1 mmol/L 3.5-5.1 [facility] Work Phone: Comment on above: Slight Hemolysis, Re sult may be falsely increased. Sodium [Moles/Vol] 142 mmol/L 136-145 [facility] Work Phone: WBC (Bld) [#/Vol] 6.9 10*3/uL 4.4-11.0 [facility] Work Phone: Blood erythrocytes count (nu mber/volume)on 02-02-2022 RBC (Bld) [#/Vol] 4.64 10*6/uL 4.2-5.4 [facility] Work Phone: Blood hemoglobin measurement (mass/volume)on 02-02-2022 Hemoglobin (Bld) [Mass/Vol] 13.7 g/dL 12.0-15.0 [facility] Work Phone: Blood lymphocytes/100 leukoc yteson 02-02-2022 Lymphocytes/100 WBC (Bld) 25.1 % 19-41 [facility] Work Phone: Blood monocytes/100 leukocyt eson 02-02-2022 Monocytes/100 WBC (Bld) 6.5 % 0-10 [facility] Work Phone: Blood platelet mean volumeon 02-02-2022 Platelet mean volume (Bld) [Entitic vol] 10.8 fL 6.2-12.0 [facility] Work Phone: Determination of erythrocyte mean corpuscular volume (MCV)on 02-02-2022 MCV (RBC) [Entitic vol] 89.0 fL 81-99 [facility] Work Phone: Hematocrit Auto (Bld) [Volum e fraction]on 02-02-2022 Hematocrit (Bld) [Volume fraction] 41.3 % 37-47 [facility] Work Phone: INR in Blood by Coagulation assayon 02-02-2022 INR Coag (Bld) [Relative time] 1.0 {INR} [facility] Work Phone: Laboratory - Chemistry and C hemistry - challengeon 02-02-2022 CO2 [Moles/Vol] 25.0 mmol/L 21.0-32.0 [facility] Work Phone: Urea nitrogen/Creatinine [Mass ratio] 19.3 mg/mg - [facility] Work Phone: Laboratory - Coagulationon 0 02-02-2022 PT Coag (PPP) [Time] 12.7 s 11.7-14.[address] [facility] Work Phone: Laboratory - Hematology and Cell countson 02-02-2022 Erythrocyte distribution width (RBC) [Entitic vol] 41.7 fL 35.1-43.9 [facility] Work Phone: Erythrocyte distribution width (RBC) [Ratio] 12.7 % 11.6-14.6 [facility] Work Phone: Immature granulocytes/100 WBC (Bld) 0.300 % 0.0-0.9 [facility] Work Phone: Comment on above: IG% - Immature Granu locytes (promyelocytes, myelocytes and metamyelocytes) > 1% indicates that a LEFT SHIFT is Present. MCH (RBC) [Entitic mass] 29.5 pg 27.0-32.0 [facility] Work Phone: Nucleated RBC/100 WBC (Bld) [Ratio] 0 % 0-5 [facility] Work Phone: MCHC Auto (RBC) [Mass/Vol]on 02-02-2022 MCHC (RBC) [Mass/Vol] 33.2 g/dL 32-36 [facility] Work Phone: No Panel Informationon 02-02 Estimated Creatinine Clearance Calc 57.64 ml/min [facility] Work Phone: Estimated GFR (MDRD) Amer 85 mL/min >60 [facility] Work Phone: Comment on above: GFR Calc Estimated GFR (MDRD) Non-Af Amer 70 mL/min >60 [facility] Work Phone: Comment on above: Non- GFR Calc Platelets bldon 02-02-2022 Platelets (Bld) [#/Vol] 220 10*3/uL 150-450 [facility] Work Phone: Serum or plasma calcium shine urement (mass/volume)on 02-02-2022 Calcium [Mass/Vol] 8.9 mg/dL 8.5-10.1 [facility] Work Phone: Serum or plasma creatinine m easurement (mass/volume)on 02-02-2022 Creatinine [Mass/Vol] 0.88 mg/dL 0.55-1.02 [facility] Work Phone: Comment on above: The validity of the calculated GFR & GFRAA in patients over 70 years has not been determined. Clinical correlation is essential. Serum or plasma urea nitroge n measurement (mass/volume)on 02-02-2022 Urea nitrogen [Mass/Vol] 17 mg/dL 11-30 [facility] Work Phone: Thin prep Papanicolaou smear with manual screeningon 02-02-2022 Thin prep Papanicolaou smear with manual screening 7 09-27 [facility] Work Phone: URINE MALCOLM CULTURE-IDENTIFICA [place] ([id number])Ordered By: Retail Presentation Specialist on 11-29-2019 Bacteria identified Cx Nom (U) Final report Normal [facility] Work Phone: Comment on above: PATIENT WAS FASTINGP ERFORMED BY: SABRA Dumont [facility] [id number] Information: SR[facility]:CU Bacteria identified Cx Nom (U) MUG Normal [facility] Work Phone: Comment on above: Mixed urogenital pollo ra10,000-25,000 colony forming units per mL PATIENT WAS FASTINGP ERFORMED BY: SABRA Dumont [facility] [id number] Information: SR[facility]:CU Urinalysis, Office ([id number])Or dered By: Maribel Noel on 11-27-2019 Bilirubin Ql (U) Negative Normal Comprehe nsive Internal Medicine Work Phone: Bilirubin Ql (U) Negative Normal Comprehe nsive Internal Medicine; [facility] Work Phone: Glucose Test strip (U) [Mass/Vol] Negative Normal [facility] Work Phone: Glucose Test strip (U) [Mass/Vol] Negative Normal [facility]; [facility] Work Phone: Hemoglobin Ql (U) non-hemolyzed trace Normal [facility] Work Phone: Ketones Ql (U) Small Normal Comprehens kena Internal Medicine Work Phone: Leukocyte esterase Test strip Ql (U) Small Normal [facility] Work Phone: Nitrite Ql (U) Negative Normal Comprehens kena Internal Medicine Work Phone: Nitrite Ql (U) Negative Normal Comprehens kena [facility]; [facility] Work Phone: pH (U) 6 [pH] Abnormal [facility] Work Phone: Protein Ql (U) Negative Normal Comprehens kena Internal Medicine Work Phone: Protein Ql (U) Negative Normal Comprehens kena [facility]; [facility] Work Phone: Specific gravity (U) [Rel density] 1.015 1 Normal [facility] Work Phone: Urobilinogen (24H U) [Mass/Time] Normal Normal [facility] Work Phone: POTASSIUM SERUM ([id number])Order ed By: Retail Presentation Specialist on 09-05-2019 Potassium [Moles/Vol] 4.9 mmol/L Normal 3.5-5.1 Com prehensive Internal Medicine Work Phone: Comment on above: Order Date: 09/05/19 Order Info: [id number] [facility] Cwhiayntwr2987 [facility] [place], [address] CBC W/AUTO DIFF WBC (99306)O rdered By: Retail Presentation Specialist on 09-03-2019 Basophils (Bld) [#/Vol] 0.0 {x10E3/uL} Normal 0.0-0.2 [facility] Work Phone: Comment on above: PATIENT NOT FASTINGP ERFORMED BY: [facility] Oxhfir8581 [facility] [id number] Basophils (Bld) [#/Vol] 0.0 10*3/uL Normal 0.0-0.2 [facility]; [facility] Work Phone: Basophils/100 WBC (Bld) 1 % Normal [facility] Work Phone: Comment on above: PATIENT NOT FASTINGP ERFORMED BY: ANGIE SeanCojinny ChanEdthyu8384 [facility] [id number] Eosinophils (Bld) [#/Vol] 0.2 {x10E3/uL} Normal 0.0-0.4 [facility] Work Phone: Comment on above: PATIENT NOT FASTINGP ERFORMED BY: ANGIE [facility] Dywkha9683 [facility] [id number] Eosinophils (Bld) [#/Vol] 0.2 10*3/uL Normal 0.0-0.4 [facility]; [facility] Work Phone: Eosinophils/100 WBC (Bld) 3 % Normal [facility] Work Phone: Comment on above: PATIENT NOT FASTINGP ERFORMED BY: ANGIE SeanCo Egpjcr8549 [facility] [id number] Erythrocyte distribution width (RBC) [Ratio] 13.1 % Normal 11.7-15.4 [facility] Work Phone: Comment on above: PATIENT NOT FASTINGP ERFORMED BY: ANGIE SeanCo Ejaqjn9703 [facility] [id number] Hematocrit (Bld) [Volume fraction] 41.9 % Normal 34.0-46.6 [facility] Work Phone: Comment on above: PATIENT NOT FASTINGP ERFORMED BY: [facility] Xqthwb2013 [facility] [id number] Hemoglobin (Bld) [Mass/Vol] 14.0 g/dL Normal 11.1-15.9 [facility] Work Phone: Comment on above: PATIENT NOT FASTINGP ERFORMED BY: ANGIE [facility] Xycpov1436 [facility] [id number] Immature granulocytes (Bld) [#/Vol] 0.0 {x10E3/uL} Normal 0.0-0.1 [facility] Work Phone: Comment on above: PATIENT NOT FASTINGP ERFORMED BY: ANGIE [facility]6370 [facility] [id number] Immature granulocytes (Bld) [#/Vol] 0.0 10*3/uL Normal 0.0-0.1 [facility]; [facility] Work Phone: Immature granulocytes/100 WBC (Bld) 0 % Normal [facility] Work Phone: Comment on above: PATIENT NOT FASTINGP ERFORMED BY: ANGIE [place] [id number] [facility] [id number] Lymphocytes (Bld) [#/Vol] 2.3 {x10E3/uL} Normal 0.7-3.1 [facility] Work Phone: Comment on above: PATIENT NOT FASTINGP ERFORMED BY: ANGIE [place] [id number] [facility] [id number] Lymphocytes (Bld) [#/Vol] 2.3 10*3/uL Normal 0.7-3.1 [facility]; [facility] Work Phone: Lymphocytes/100 WBC (Bld) 30 % Normal [facility] Work Phone: Comment on above: PATIENT NOT FASTINGP ERFORMED BY: ANGIE [place]Ray[place] [id number] [facility] [id number] MCH (RBC) [Entitic mass] 29.7 pg Normal 26.6-33.0 [facility] Internal Medicine Work Phone: Comment on above: PATIENT NOT FASTINGP ERFORMED BY: ANGIE [place] [id number] [facility] [id number] MCHC (RBC) [Mass/Vol] 33.4 g/dL Normal 31.5-35.7 [facility] prehensive Internal Medicine Work Phone: Comment on above: PATIENT NOT FASTINGP ERFORMED BY: ANGIE [place] [id number] [facility] [id number] MCV (RBC) [Entitic vol] 89 fL Normal 79-97 [facility] Work Phone: Comment on above: PATIENT NOT FASTINGP ERFORMED BY: ANGIE [place] 3686170 [facility] [place] [id number] Monocytes (Bld) [#/Vol] 0.5 {x10E3/uL} Normal 0.1-0.9 [facility] Work Phone: Comment on above: PATIENT NOT FASTINGP ERFORMED BY: [facility]IE [facility] Qfupck3385 [facility] [place] [id number] Monocytes (Bld) [#/Vol] 0.5 10*3/uL Normal 0.1-0.9 [facility]; [facility] Work Phone: Monocytes/100 WBC (Bld) 7 % Normal [facility] Work Phone: Comment on above: PATIENT NOT FASTINGP ERFORMED BY: ANGIE Andrzej Blqqom7355 [facility] [place] [id number] Neutrophils (Bld) [#/Vol] 4.6 {x10E3/uL} Normal 1.4-7.0 [facility] Work Phone: Comment on above: PATIENT NOT FASTINGP ERFORMED BY: ANGIE [facility] Cjkovz6878 [facility] [id number] Neutrophils (Bld) [#/Vol] 4.6 10*3/uL Normal 1.4-7.0 [facility]; [facility] Work Phone: Neutrophils/100 WBC (Bld) 59 % Normal [facility] Work Phone: Comment on above: PATIENT NOT FASTINGP ERFORMED BY: ANGIE [facility] Sugnnz7210 [facility] [place] [id number] Platelets (Bld) [#/Vol] 285 {x10E3/uL} Normal 150-450 [facility] Work Phone: Comment on above: PATIENT NOT FASTINGP ERFORMED BY: ANGIE [facility] Wxdddb0584 [facility] [place] [id number] Platelets (Bld) [#/Vol] 285 10*3/uL Normal 150-450 [facility]; [facility] Work Phone: RBC (Bld) [#/Vol] 4.72 {x10E6/uL} Normal 3.77-5.28 [facility] Work Phone: Comment on above: PATIENT NOT FASTINGP ERFORMED BY: ANGIE LabAsher SternIfadoa1482 [facility] [id number] RBC (Bld) [#/Vol] 4.72 10*6/uL Normal 3.77-5.28 [facility]; [facility] Work Phone: WBC (Bld) [#/Vol] 7.7 {x10E3/uL} Normal 3.4-10.8 [facility] Work Phone: Comment on above: PATIENT NOT FASTINGP ERFORMED BY: ANGIE Sternlin6370 [facility] [id number] WBC (Bld) [#/Vol] 7.7 10*3/uL Normal 3.4-10.8 [facility] Internal Medicine; [facility] Work Phone: LIPID PANEL ([id number])Ordered B y: Retail Presentation Specialist on 09-03-2019 Cholesterol [Mass/Vol] 244 mg/dL Abnormal 100-199 [facility] Work Phone: Comment on above: PATIENT NOT FASTINGP ERFORMED BY: ANGIE LabAsher Bkhhis9417 [facility] [id number] Cholesterol in HDL [Mass/Vol] 51 mg/dL Normal [facility] Work Phone: Comment on above: PATIENT NOT FASTINGP ERFORMED BY: ANGIE LabAsher SternZosqdj7783 [facility] [id number] Cholesterol in LDL [Mass/Vol] 134 mg/dL Abnormal 0-99 [facility] Work Phone: Comment on above: PATIENT NOT FASTINGP ERFORMED BY: ANGIE LabAsher SternNebcux2920 [facility] [id number] Cholesterol in LDL/Cholesterol in HDL [Mass ratio] 2.6 {ratio} Normal 0.0-3.2 [facility] Work Phone: Comment on above: LDL/HDL Ratio Men Wo men 1/2 Avg.Risk 1.0 1.5 Avg.Risk 3.6 3.2 2X Avg.Risk 6.2 5.0 3X Avg.Risk 8.0 6.1 PATIENT NOT FASTINGP ERFORMED BY: ANGIE [facility] Rekmoh5051 [facility] [id number] Cholesterol in VLDL [Mass/Vol] 59 mg/dL Abnormal 5-40 [facility] Work Phone: Comment on above: PATIENT NOT FASTINGP ERFORMED BY: CB [facility] Kmkqmf4816 [facility] [id number] Triglyceride [Mass/Vol] 296 mg/dL Abnormal 0-149 [facility] Work Phone: Comment on above: PATIENT NOT FASTINGP ERFORMED BY: ANGIE [facility] Lxyoeb2126 [facility] [id number] METABOLIC PANEL, COMPREHENSI VE ([id number])Ordered By: Retail Presentation Specialist on 09-03-2019 Albumin [Mass/Vol] 4.7 g/dL Normal 3.8-4.9 [facility] Internal Medicine Work Phone: Comment on above: PATIENT NOT FASTINGP ERFORMED BY: CB [facility] Qheevh6771 [facility] [id number] Albumin/Globulin [Mass ratio] 2.0 {ratio} Normal 1.2-2.2 [facility] Work Phone: Comment on above: PATIENT NOT FASTINGP ERFORMED BY: CB [facility] Jdzsld8167 [facility] [id number] ALP [Catalytic activity/Vol] 76 [iU]/L Normal 39-117 [facility] Work Phone: Comment on above: PATIENT NOT FASTINGP ERFORMED BY: CB [facility] Ncgoid9374 [facility] [id number] ALP [Catalytic activity/Vol] 76 U/L Normal 39-117 [facility]; [facility] Work Phone: ALT [Catalytic activity/Vol] 18 [iU]/L Normal 0-32 [facility] Work Phone: Comment on above: PATIENT NOT FASTINGP ERFORMED BY: ANGIE [facility] Lbmtad3376 [address] RoadDublin [place] [id number] ALT [Catalytic activity/Vol] 18 U/L Normal 0-32 [facility]; [facility] Work Phone: AST [Catalytic activity/Vol] 15 [iU]/L Normal 0-40 [facility] Work Phone: Comment on above: PATIENT NOT FASTINGP ERFORMED BY: CB [facility] Mtaanq4138 [address] RoadDublin [place] [id number] AST [Catalytic activity/Vol] 15 U/L Normal 0-40 [facility]; [facility] Internal Medicine Work Phone: Bilirubin [Mass/Vol] 0.2 mg/dL Normal 0.0-1.2 [facility] Work Phone: Comment on above: PATIENT NOT FASTINGP ERFORMED BY: ANGIE LabCojinny SternNetggs7278 [address] RoadDublin [place] [id number] Calcium [Mass/Vol] 9.9 mg/dL Normal 8.7-10.2 [facility] Internal Medicine Work Phone: Comment on above: PATIENT NOT FASTINGP ERFORMED BY: ANGIE [facility] Rxyswg4823 [address] RoadDublin [place] [id number] Chloride [Moles/Vol] 102 mmol/L Normal 96-106 [facility] Internal Medicine Work Phone: Comment on above: PATIENT NOT FASTINGP ERFORMED BY: ANGIE [facility] Zwjwes0602 [address] RoadDublin [place] [id number] CO2 [Moles/Vol] 24 mmol/L Normal 20-29 [facility] Internal Medicine Work Phone: Comment on above: PATIENT NOT FASTINGP ERFORMED BY: ANGIE [facility] Avvibk5537 [address] RoadDublin [place] [id number] Creatinine [Mass/Vol] 0.74 mg/dL Normal 0.57-1.00 [facility] Work Phone: Comment on above: PATIENT NOT FASTINGP ERFORMED BY: ANGIE [facility] Sjafdi9249 [address] RoadDublin [place] [id number] GFR/1.73 sq M predicted among blacks CKD-EPI (S/P/Bld) [Vol rate/Area] 105 mL/min/1.73 Normal [facility] Work Phone: Comment on above: PATIENT NOT FASTINGP ERFORMED BY: [facility] Lenuzx0207 [address] RoadDublin [place] [id number] GFR/1.73 sq M predicted among non-blacks CKD-EPI (S/P/Bld) [Vol rate/Area] 91 mL/min/1.73 Normal [facility] Work Phone: Comment on above: PATIENT NOT FASTINGP ERFORMED BY: LabKind[facility] Vyeneq8224 [address] Roadblin [place] [id number] Globulin (S) [Mass/Vol] 2.4 g/dL Normal 1.5-4.5 [facility] Internal Medicine Work Phone: Comment on above: PATIENT NOT FASTINGP ERFORMED BY: [facility] Wdrswp4796 [address] [facility] [place] [id number] Glucose [Mass/Vol] 92 mg/dL Normal 65-99 [facility] Internal Medicine Work Phone: Comment on above: PATIENT NOT FASTINGP ERFORMED BY: LabNathan Isuemh9479 [address] [facility] [place] [id number] Potassium [Moles/Vol] 5.3 mmol/L Abnormal 3.5-5.2 [facility] Internal Medicine Work Phone: Comment on above: PATIENT NOT FASTINGP ERFORMED BY: [facility] Tjsdus0252 [address]Dublin [place] [id number] Protein [Mass/Vol] 7.1 g/dL Normal 6.0-8.5 [facility] Internal Medicine Work Phone: Comment on above: PATIENT NOT FASTINGP ERFORMED BY: [facility] Ykohqi2221 [address] RoadDublin [place] [id number] Sodium [Moles/Vol] 141 mmol/L Normal 134-144 [facility] Internal Medicine Work Phone: Comment on above: PATIENT NOT FASTINGP ERFORMED BY: ANGIE [facility] Mraazj1769 [address] RoadDublin [place] [id number] Urea nitrogen [Mass/Vol] 10 mg/dL Normal 6-24 [facility] Work Phone: Comment on above: PATIENT NOT FASTINGP ERFORMED BY: ANGIE [facility] Prwfyb8710 [address] RoadDublin [place] [id number] Urea nitrogen/Creatinine [Mass ratio] 14 mg/mg Normal 9-23 [facility] Work Phone: Comment on above: PATIENT NOT FASTINGP ERFORMED BY: ANGIE [facility] Hdenhj6787 [address] RoadDublin [place] [id number] MICROALBUMINOrdered By: [employer] em Radio Interference Investigator on 09-03-2019 Albumin DL <= 20 mg/L (U) [Mass/Vol] 5.6 ug/mL Normal [facility] Work Phone: Comment on above: PATIENT NOT FASTINGP ERFORMED BY: ANGIE [facility] Ndysql7052 [address]Dublin [place] [id number] Albumin/Creatinine (U) [Mass ratio] 17 {mg/g_creat} Normal 0-29 [facility] Work Phone: Comment on above: Normal: 0 - 29 Moder ately increased: 30 - 300 Severely increased: >300 Please note reference interval change PATIENT NOT FASTINGP ERFORMED BY: ANGIE [facility] Meevjh0520 [address]Dublin [place] [id number] Creatinine (U) [Mass/Vol] 33.2 mg/dL Normal [facility] Work Phone: Comment on above: PATIENT NOT FASTINGP ERFORMED BY: CB [facility] Ojmbzu9034 [address]Dublin [place] [id number] TSH ([id number])Ordered By: [employer] m Radio Interference Investigator on 09-03-2019 TSH Qn 2.770 {uIU/mL} Normal 0.450-4.50 0 [facility] Work Phone: Comment on above: PATIENT NOT FASTINGP ERFORMED BY: ANGIE [facility] Trqqwg2992 [address] RoadDublin [place] [id number] URINALYSIS, W/ MICRO ([id number]) Ordered By: Retail Presentation Specialist on 09-03-2019 Appearance (U) Clear Normal Comprehens kena Internal Medicine Work Phone: Comment on above: PATIENT NOT FASTINGP ERFORMED BY: ANGIE LabAsher SternZwyurr4986 [address] RoadDublin [place] [id number] Bilirubin Ql (U) Negative Normal Comprehe nsive Internal Medicine Work Phone: Comment on above: PATIENT NOT FASTINGP ERFORMED BY: ANGIE LabNathanrp Mjcykq0038 [address]Dublin [place] [id number] Bilirubin Ql (U) Negative Normal Comprehe nsive Internal Medicine; [facility] Work Phone: Color (U) Yellow Normal [facility] Work Phone: Comment on above: PATIENT NOT FASTINGP ERFORMED BY: ANGIE LabAsher SternAyckrg6836 [address] [place] [id number] Glucose Ql (U) Negative Normal Comprehens kena Internal Medicine Work Phone: Comment on above: PATIENT NOT FASTINGP ERFORMED BY: ANGIE LabAsher SternJkkslu1192 [address] RoadDublin [place] [id number] Glucose Ql (U) Negative Normal Comprehens kena Internal Medicine; [facility] Work Phone: Hemoglobin Ql (U) Trace Abnormal Compreh ensive Internal Medicine Work Phone: Comment on above: PATIENT NOT FASTINGP ERFORMED BY: ANGIE LabAsher SternSxepjz9906 [address] RoadDublin [place] [id number] Ketones Ql (U) Negative Normal Comprehens kena Internal Medicine Work Phone: Comment on above: PATIENT NOT FASTINGP ERFORMED BY: ANGIE LabNathanrp Xaripm9366 [address]Dublin [place] [id number] Ketones Ql (U) Negative Normal Comprehens kena Internal Medicine; [facility] Work Phone: Leukocyte esterase Test strip Ql (U) Trace Abnormal [facility] Work Phone: Comment on above: PATIENT NOT FASTINGP ERFORMED BY: ANGIE LabNathanrp Hgjrrr2677 [address] RoadDublin [place] [id number] Microscopic observation LM Nom (Urine sed) See below: Normal [facility] Work Phone: Comment on above: Microscopic was ale cated and was performed. PATIENT NOT FASTINGP ERFORMED BY: ANGIE [facility] Gdygjf0027 [address]Dublin [place] [id number] Nitrite Ql (U) Negative Normal Comprehens kena Internal Medicine Work Phone: Comment on above: PATIENT NOT FASTINGP ERFORMED BY: ANGIE [facility] Hfwvgi6675 [address]Dublin [place] [id number] Nitrite Ql (U) Negative Normal Comprehens kena Internal Medicine; [facility] Work Phone: pH (U) 6.5 [pH] Normal 5.0-7.5 [facility] Work Phone: Comment on above: PATIENT NOT FASTINGP ERFORMED BY: ANGIE Sternlin6370 [address] RoadNovant Healthin [place] [id number] Protein Ql (U) Negative Normal Comprehens kena Internal Medicine Work Phone: Comment on above: PATIENT NOT FASTINGP ERFORMED BY: ANGIE Sternlin6370 [address] RoadNovant Healthin [place] [id number] Protein Ql (U) Negative Normal Comprehens kena Internal Medicine; [facility] Work Phone: Specific gravity (U) [Rel density] 1.008 1 Normal 1.005-1.03 0 [facility] Work Phone: Comment on above: PATIENT NOT FASTINGP ERFORMED BY: ANGIE [facility] Lijvof1813 [address]Dublin [place] [id number] Urobilinogen (U) [Mass/Vol] 0.2 mg/dL Normal 0.2-1.0 [facility]; [facility] Work Phone: Urobilinogen Test strip (U) [Mass/Vol] 0.2 mg/dL Normal 0.2-1.0 Comprehensi Internal Medicine Work Phone: Comment on above: PATIENT NOT FASTINGP ERFORMED BY: ANGIE [facility] Vuwqmq8158 [address] [place] [id number] CNCOon 11-24-2018 CNCO Letter Text Normal [facility] CNOVon 11-24-2018 CNOV Office Visit (SAMARAAGAK ) ----- SONDRA CURRIE ([id number]) 1965 F Date Time Provider Department 11/24/18 11:00 AM AGUS GOMEZ During your visit today, we recorded the following information about you: Pulse Respiration Blood pressure 64/minute 16/minute 138/83 Agus Gomez MD 11/24/2018 11:20 AM Signed NEUROSURGERY CONSULT NOTE Agus Gomez MD Date of visit: November 24, 2018 Patient Name: Ms.Dawn Tee Currie Date of : 1965 Current Age: [age] year old Sex: female MRN/E# [id number] Chief Complaint: Patient presents with: New Patient Evaluation: back pain HISTORY OF PRESENT ILLNESS : Ms. Currie presents to the office today as a new patient. Today she complains of pain in the middle of her back predominately on the left side, with the pain radiating to her left rib cage. She stated that it is only relieved by laying down. Walking or standing aggravates the pain. The patient has tried NSAIDs without any relief. She states this pain has been going on for the last six years. . She is here for evaluation and plan of care. Symptoms: pain in the middle of her back predominately on the left side, with the pain radiating to her left rib cage PREVIOUS CONSERVATIVE TREATMENTS: NSAIDs PREVIOUS SURGERY: None PAIN EVALUATION 11/24/2018 Pain Level: 4 PAST MEDICAL HISTORY Diagnosis Date - Blood pressure elevated without history of HTN - IBS (irritable bowel syndrome) - Migraines 1981 PAST SURGICAL HISTORY Procedure Laterality Date - PAST SURGICAL HISTORY OF Right 2019 Meniscus - TONSILLECTOMY HX 1979 FAMILY HISTORY Problem Relation Age of Onset - Breast Cancer Maternal Grandmother dx age ?50; 51 from breast cancer - Breast Cancer Paternal Grandmother dx age ?55; 55 from breast cancer - Breast Cancer Maternal Aunt dx age 55; currently 57 and doing well - Breast Cancer Paternal Aunt dx 40; within the year ALLERGIES No Known Allergies Current Outpatient Medications Medication Sig Dispense Refill - cholestyramine low-calorie (CHOLESTYRAMINE LIGHT) 4 gram packet Take 1 packet mix in 8 oz of water daily. (may use generic) 30 Packet 2 - Minocycline HCl 50 mg ORAL tablet Take 50 mg by mouth twice daily. - PROPRANOLOL HCL (INDERAL ORAL) Take by mouth. No current facility-administered medications for this visit. REVIEW OF SYSTEMS Review of Systems Constitutional: Negative for chills, fever and unexpected weight change. HENT: Negative for congestion, ear discharge and sinus pressure. Eyes: Negative for pain and discharge. Respiratory: Negative for cough, shortness of breath and wheezing. Cardiovascular: Negative for chest pain, palpitations and leg swelling. Gastrointestinal: Positive for diarrhea. Negative for constipation and nausea. Endocrine: Negative for cold intolerance and heat intolerance. Genitourinary: Negative for difficulty urinating, frequency and urgency. Musculoskeletal: Positive for back pain. Negative for gait problem and neck pain. Skin: Negative for rash and wound. Allergic/Immunologic: Negative for environmental allergies and food allergies. Neurological: Negative for dizziness, weakness and numbness. Hematological: Does not bruise/bleed easily. Psychiatric/Behavioral: Negative for agitation. The patient is not nervous/anxious. OBJECTIVE: BP 138/83 Pulse 64 Resp 16 SpO2 99% Physical Exam Constitutional: She is oriented to person, place, and time and well-developed, well-nourished, and in no distress. HENT: Head: Normocephalic. Eyes: Pupils are equal, round, and reactive to light. Neck: Normal range of motion. Pulmonary/Chest: Effort normal. Musculoskeletal: Normal range of motion. Neurological: She is alert and oriented to person, place, and time. Gait normal. Skin: Skin is warm and dry. Neurological Exam Mental Status Alert. Cranial Nerves CN III, IV, : Pupils equal round and reactive to light bilaterally. Gait Normal gait. Reflex Scores: Patellar reflexes are 2+ on the right side and 2+ on the left side. Skin: Skin is warm and dry. Neurological Exam Mental Status Alert. Motor Normal muscle bulk throughout. Normal muscle tone. Right Left Hip flexion 5 5 Knee flexion 5 5 Knee extension 5 5 Plantarflexion 5 5 Dorsiflexion 5 5 Sensory Sensation is intact to light touch, pinprick, vibration and proprioception in all four extremities. Reflexes Right Left Patellar 2+ 2+ Data Review IMAGING STUDIES: MRI performed on 10/18/18 Findings were noted as . Personal review of medical records: I reviewed with the patient, history, physical exam, the images and the chart. 1. Syringomyelia (HCC) The patient presents with complaints of back pain. She states that these are quite disabling and that she is unable to function normally. She does not have any obvious neurological deficits on examination. Her MRI was reviewed and shows some degenerative disc disease without compression. She also was noted to have syringomyelia extending from T6-T8 and also from T11-L1. I told her that she needs to undergo a MRI of the thoracic spine with contrast to rule out any underlying tumor. She will return to see me upon completion of the study. All of her questions of been discussed in great detail. Agus Gomez MD Referring Provider: IVON LOPEZ [[id number]] Allergies As of Date: 11/24/2018 (No Known Allergies) Date Reviewed: 11/24/2018 Reviewed by: Agus Gomez - Fully Assessed Reason for Visit: New Patient Evaluation [154] Cmt: back pain Reason For Visit History Recorded Primary Visit Diagnosis:Syringomyelia (HCC) [G95.0] Order(s):MRI THORACIC SPINE WO/W IVCON [[id number]] Order #: [id number] FUTURE iv contrast (will be provided with radiology test)MRI TSP Inject, intravenously, once for 1 dose. No IV access, insert saline lock prior to the beginning of sedation, infusion, injection of imaging exam. Discontinue saline lock post exam. If Pt. has a central line or IVAD, may access for administration according to line specific nursing protocol. Once exam is complete flush line and de-access according to line specific nursing protocol in the MR contrast administration guidelines link.Disp: 1 EachRfl: 0 Prescriptions as of 11/24/2018 Sig: CHOLESTYRAMINE-ASPARTAME 4 GR* Take 1 packet mix in 8 oz of * MINOCYCLINE 50 MG TABLET Take 50 mg by mouth twice melani* INDERAL ORAL Take by mouth. IV CONTRAST (RADIOLOGY PROCED* MRI TSP Inject, intravenousl* Problem List As Of Date 11/24/2018 Noted Resolved ABNORMAL FINDINGS-BREAST [793.8] INVALID FOR* Prescriptions ordered this encounter Disp Refills Start End IV CONTRAST (RADIOLOGY PROCEDURE) 1 Ea* 0 11/24/2018 11/25/2018 Class: In Office Sig: MRI TSP Inject, intravenously, once for 1 dose. No IV access, insert saline lock prior to the beginning of sedation, infusion, injection of imaging exam. Discontinue saline lock post exam. If Pt. has a central line or IVAD, may access for administration according to line specific nursing protocol. Once exam is complete flush line and de-access according to line specific nursing protocol in the MR contrast administration guidelines link. Medications Discontinued During This Encounter DIPHENOXYLATE HCL/ATROPINE (LOMOTIL * 11/24/2018 Class: Med Update Route: ORAL Sig: Take by mouth. Disc: Course of therapy completed LISINOPRIL ORAL 11/24/2018 Class: Med Update Route: ORAL Sig: Take by mouth. Disc: Course of therapy completed MAXALT NANOTECHNOLOGY ENGINEERING TECHNOLOGIST 10MG TABLET 0 06/26/2003 11/24/2018 Class: Historical Med Sig: Disc: Course of therapy completed Encounter Status:Closed by AGUS GOMEZ MD on 11/24/18 [facility] PROGRESSon 11-24-2018 PROGRESS HNO ID: [id number] Author: Agus Gomez Service: ? Author Type: Physician Type: Progress Notes Filed: 11/24/2018 11:20 AM Note Text: NEUROSURGERY CONSULT NOTE Agus Gomez MD Date of visit: November 24, 2018 Patient Name: Ms.Dawn Tee Currie Date of : 1965 Current Age: [age] year old Sex: female MRN/E# [id number] Chief Complaint: Patient presents with: New Patient Evaluation: back pain HISTORY OF PRESENT ILLNESS : Ms. Currie presents to the office today as a new patient. Today she complains of pain in the middle of her back predominately on the left side, with the pain radiating to her left rib cage. She stated that it is only relieved by laying down. Walking or standing aggravates the pain. The patient has tried NSAIDs without any relief. She states this pain has been going on for the last six years. . She is here for evaluation and plan of care. Symptoms: pain in the middle of her back predominately on the left side, with the pain radiating to her left rib cage PREVIOUS CONSERVATIVE TREATMENTS: NSAIDs PREVIOUS SURGERY: None PAIN EVALUATION 11/24/2018 Pain Level: 4 PAST MEDICAL HISTORY Diagnosis Date - Blood pressure elevated without history of HTN - IBS (irritable bowel syndrome) - Migraines 1981 PAST SURGICAL HISTORY Procedure Laterality Date - PAST SURGICAL HISTORY OF Right 2019 Meniscus - TONSILLECTOMY HX 1979 FAMILY HISTORY Problem Relation Age of Onset - Breast Cancer Maternal Grandmother dx age ?50; 51 from breast cancer - Breast Cancer Paternal Grandmother dx age ?55; 55 from breast cancer - Breast Cancer Maternal Aunt dx age 55; currently 57 and doing well - Breast Cancer Paternal Aunt dx 40; within the year ALLERGIES No Known Allergies Current Outpatient Medications Medication Sig Dispense Refill - cholestyramine low-calorie (CHOLESTYRAMINE LIGHT) 4 gram packet Take 1 packet mix in 8 oz of water daily. (may use generic) 30 Packet 2 - Minocycline HCl 50 mg ORAL tablet Take 50 mg by mouth twice daily. - PROPRANOLOL HCL (INDERAL ORAL) Take by mouth. No current facility-administered medications for this visit. REVIEW OF SYSTEMS Review of Systems Constitutional: Negative for chills, fever and unexpected weight change. HENT: Negative for congestion, ear discharge and sinus pressure. Eyes: Negative for pain and discharge. Respiratory: Negative for cough, shortness of breath and wheezing. Cardiovascular: Negative for chest pain, palpitations and leg swelling. Gastrointestinal: Positive for diarrhea. Negative for constipation and nausea. Endocrine: Negative for cold intolerance and heat intolerance. Genitourinary: Negative for difficulty urinating, frequency and urgency. Musculoskeletal: Positive for back pain. Negative for gait problem and neck pain. Skin: Negative for rash and wound. Allergic/Immunologic: Negative for environmental allergies and food allergies. Neurological: Negative for dizziness, weakness and numbness. Hematological: Does not bruise/bleed easily. Psychiatric/Behavioral: Negative for agitation. The patient is not nervous/anxious. OBJECTIVE: BP 138/83 Pulse 64 Resp 16 SpO2 99% Physical Exam Constitutional: She is oriented to person, place, and time and well-developed, well-nourished, and in no distress. HENT: Head: Normocephalic. Eyes: Pupils are equal, round, and reactive to light. Neck: Normal range of motion. Pulmonary/Chest: Effort normal. Musculoskeletal: Normal range of motion. Neurological: She is alert and oriented to person, place, and time. Gait normal. Skin: Skin is warm and dry. Neurological Exam Mental Status Alert. Cranial Nerves CN III, IV, : Pupils equal round and reactive to light bilaterally. Gait Normal gait. Reflex Scores: Patellar reflexes are 2+ on the right side and 2+ on the left side. Skin: Skin is warm and dry. Neurological Exam Mental Status Alert. Motor Normal muscle bulk throughout. Normal muscle tone. Right Left Hip flexion 5 5 Knee flexion 5 5 Knee extension 5 5 Plantarflexion 5 5 Dorsiflexion 5 5 Sensory Sensation is intact to light touch, pinprick, vibration and proprioception in all four extremities. Reflexes Right Left Patellar 2+ 2+ Data Review IMAGING STUDIES: MRI performed on 10/18/18 Findings were noted as . Personal review of medical records: I reviewed with the patient, history, physical exam, the images and the chart. 1. Syringomyelia (HCC) The patient presents with complaints of back pain. She states that these are quite disabling and that she is unable to function normally. She does not have any obvious neurological deficits on examination. Her MRI was reviewed and shows some degenerative disc disease without compression. She also was noted to have syringomyelia extending from T6-T8 and also from T11-L1. I told her that she needs to undergo a MRI of the thoracic spine with contrast to rule out any underlying tumor. She will return to see me upon completion of the study. All of her questions of been discussed in great detail. Agus Gomez MD [facility] Request Problemon 08-25-2018 Request Problem Comprehamairani [facility] Internal Medicine Work Phone: Comment on above: PATIENT NOT FASTINGP ERFORMED BY: XL Video Johtmt1407 BarolwDealstruckAffinity Health Partners [id number] Request Problemon 07-31-2018 [facility] Work Phone: Comment on above: PATIENT NOT FASTINGP ERFORMED BY: ANGIE XL Video Cqegnu9227 [address] PostdeckAffinity Health Partners [id number] CBC W/AUTO DIFF WBC ([id number])O rdered By: Retail Presentation Specialist on 06-23-2018 Basophils #/vol (Bld) 0.0 {x10E3/uL} Normal 0.0-0.2 [facility] Work Phone: Comment on above: PATIENT WAS FASTINGP ERFORMED BY: Clerky[address] [id number] BY: XL VideoChilton Memorial HospitalFrtyfa8248 Barlow RoadNovant Healthin [place] [id number] Basophils (Bld) [#/Vol] 0.0 10*3/uL Normal 0.0-0.2 [facility]; [facility] Work Phone: Basophils/100 WBC (Bld) 0 % Normal [facility] Work Phone: Comment on above: PATIENT WAS FASTINGP ERFORMED BY: XL Video[address] [id number] BY: XL Video Yeocec1313 [address] [facility] [id number] Eosinophils #/vol (Bld) 0.2 {x10E3/uL} Normal 0.0-0.4 [facility] Work Phone: Comment on above: PATIENT WAS FASTINGP ERFORMED BY: XL Video[address] [id number] BY: XL VideoLori V[place] 8126070 [address] [facility] [id number] Eosinophils (Bld) [#/Vol] 0.2 10*3/uL Normal 0.0-0.4 [facility]; [facility] Work Phone: Eosinophils/100 WBC (Bld) 2 % Normal [facility] Work Phone: Comment on above: PATIENT WAS FASTINGP ERFORMED BY: XL Video[address] [id number] BY: XL VideoLori V[place] 8126070 [facility] [id number] Erythrocyte distribution width Ratio (RBC) 13.9 % Normal 12.3-15.4 [facility] Work Phone: Comment on above: PATIENT WAS FASTINGP ERFORMED BY: [address] [id number] BY: [facility]6370 [address] [facility] [id number] Hematocrit Volume Fraction (Bld) 36.9 % Normal 34.0-46.6 [facility] Work Phone: Comment on above: PATIENT WAS FASTINGP ERFORMED BY: [address] [id number] BY: [place] 0583670 [address] [facility] [id number] Hemoglobin mass conc (Bld) 12.7 g/dL Normal 11.1-15.9 [facility] Work Phone: Comment on above: PATIENT WAS FASTINGP ERFORMED BY: [address] [id number] BY: [place] 0583670 [address] [facility] [id number] Immature granulocytes #/vol (Bld) 0.0 {x10E3/uL} Normal 0.0-0.1 [facility] Work Phone: Comment on above: PATIENT WAS FASTINGP ERFORMED BY: [address] [id number] BY: [place] 0583670 [address] [facility] [id number] Immature granulocytes (Bld) [#/Vol] 0.0 10*3/uL Normal 0.0-0.1 [facility]; [facility] Work Phone: Immature granulocytes/100 WBC (Bld) 0 % Normal [facility] Work Phone: Comment on above: PATIENT WAS FASTINGP ERFORMED BY: [address] [id number] BY: LabRaymond Ville 2153970 [address] [facility] [id number] Lymphocytes #/vol (Bld) 2.7 {x10E3/uL} Normal 0.7-3.1 [facility] Work Phone: Comment on above: PATIENT WAS FASTINGP ERFORMED BY: Clerky[address] [id number] BY: LabCoChilton Memorial HospitalMftdde0091 Bralow RoadDublin [place] [id number] Lymphocytes (Bld) [#/Vol] 2.7 10*3/uL Normal 0.7-3.1 [facility]; [facility] Work Phone: Lymphocytes/100 WBC (Bld) 34 % Normal [facility] Work Phone: Comment on above: PATIENT WAS FASTINGP ERFORMED BY: [address] [id number] BY: LabCo Bwgtdr6058 [address] [facility] [id number] MCH Entitic mass (RBC) 29.1 pg Normal 26.6-33.0 [facility] Work Phone: Comment on above: PATIENT WAS FASTINGP ERFORMED BY: [address] [id number] BY: LabUniversity Of Michigan Health6370 [facility] [id number] MCHC mass conc (RBC) 34.4 g/dL Normal 31.5-35.7 [facility] Internal Medicine Work Phone: Comment on above: PATIENT WAS FASTINGP ERFORMED BY: Lab[address] [id number] BY: LabKindred Hospital Gjwgtv3817 [address] [facility]in [place] [id number] MCV Entitic volume (RBC) 85 fL Normal 79-97 [facility] Work Phone: Comment on above: PATIENT WAS FASTINGP ERFORMED BY: Lab[address] [id number] BY: LabCo Xobyvt3824 Barlow Roadblin [place] [id number] Monocytes #/vol (Bld) 0.4 {x10E3/uL} Normal 0.1-0.9 [facility] Work Phone: Comment on above: PATIENT WAS FASTINGP ERFORMED BY: [address] [id number] BY: ANGIE [facility] Uynaql1184 Barlow RoadDuin [place] [id number] Monocytes (Bld) [#/Vol] 0.4 10*3/uL Normal 0.1-0.9 [facility]; [facility] Work Phone: Monocytes/100 WBC (Bld) 5 % Normal [facility] Work Phone: Comment on above: PATIENT WAS FASTINGP ERFORMED BY: XL Video[address] [id number] BY: XL Video Efcqtt3351 Barlow RoadDuke Raleigh Hospital [id number] Neutrophils #/vol (Bld) 4.6 {x10E3/uL} Normal 1.4-7.0 [facility] Work Phone: Comment on above: PATIENT WAS FASTINGP ERFORMED BY: [address] [id number] BY: [place] 0583670 [facility] [id number] Neutrophils (Bld) [#/Vol] 4.6 10*3/uL Normal 1.4-7.0 [facility]; [facility] Work Phone: Neutrophils/100 WBC (Bld) 59 % Normal [facility] Work Phone: Comment on above: PATIENT WAS FASTINGP ERFORMED BY: [address] [id number] BY: [place] 0583670 [facility] [id number] Platelets #/vol (Bld) 250 {x10E3/uL} Normal 150-379 [facility] Work Phone: Comment on above: PATIENT WAS FASTINGP ERFORMED BY: XL Video[address] [id number] BY: ANGIE LabUniversity Of Michigan Health6370 [facility] [id number] Platelets (Bld) [#/Vol] 250 10*3/uL Normal 150-379 [facility]; [facility] Work Phone: RBC #/vol (Bld) 4.36 {x10E6/uL} Normal 3.77-5.28 Comp [facility]ronensive Internal [facility] Work Phone: Comment on above: PATIENT WAS FASTINGP ERFORMED BY: XL Video[address] [id number] BY: ANGIE XL VideoChilton Memorial HospitalLhnafp8585 [facility] [id number] RBC (Bld) [#/Vol] 4.36 10*6/uL Normal 3.77-5.28 Compr ensive Internal Medicine; [facility] Work Phone: WBC #/vol (Bld) 7.9 {x10E3/uL} Normal 3.4-10.8 [facility] Work Phone: Comment on above: PATIENT WAS FASTINGP ERFORMED BY: XL Video[address] [id number] BY: XL VideoChilton Memorial HospitalDfyjbl4860 [facility] [id number] WBC (Bld) [#/Vol] 7.9 10*3/uL Normal 3.4-10.8 Compre [facility] Internal Medicine; [facility] Work Phone: LIPOPROTEIN, BLD, BY NMR ([id number])Ordered By: Retail Presentation Specialist on 06-23-2018 Cholesterol mass conc 219 mg/dL Abnormal 100-199 [facility] Internal Medicine Work Phone: Comment on above: PATIENT WAS FASTINGP ERFORMED BY: XL Video[address] [id number] BY: LabXcode Life SciencesChilton Memorial HospitalTofvqt8312 [facility] [id number] Lipoprotein.alpha molar conc 34.3 umol/L Normal [facility] Work Phone: Comment on above: PATIENT WAS FASTINGP ERFORMED BY: Armetheon [address] [id number] BY: in[employer] Kjydjy2590 [facility] [id number] Lipoprotein.beta.subp article Entitic length 21.1 nm Normal [facility] Work Phone: Comment on above: INTERPRETATIVE INFORMATION PARTICLE CONCENTRATION AND SIZE <--Lower CVD Risk Higher CVD Risk--> LDL AND HDL PARTICLES Percentile in Reference Population HDL-P (total) High 75th 50th 25th Low >34.9 34.9 30.5 26.7 <26.7 . Small LDL-P Low 25th 50th 75th High <117 117 527 839 >839 . LDL Size <-Large (Pattern A)-> <-Small (Pattern B)-> 23.0 20.6 20.5 19.0 Small LDL-P and LDL Size are associated with CVD risk, but not afterLDL-P is taken into account. .These assays were developed and their performance characteristicsdetermined by [employer]. These assays have not been cleared by [place] Food and Drug Administration. The clinical utility of theselaboratory values have not been fully established. PATIENT WAS FASTINGP ERFORMED BY: Armetheon [address] [id number] BY: [employer] Cpqxzi6887 [facility] [id number] Lipoprotein.beta.subp article molar conc 1591 nmol/L Abnormal [facility] Work Phone: Comment on above: Low < 1000 Moderate 1000 - 1299 Borderline-High 1300 - 1599 High 1600 - 2000 Very High > 2000 PATIENT WAS FASTINGP ERFORMED BY: XL Video[address] [id number] BY: XL Video Adbzrv1090 Barlow RoadDublin [place] [id number] Lipoprotein.beta.subp article.small molar conc 634 nmol/L Abnormal [facility] Work Phone: Comment on above: PATIENT WAS FASTINGP ERFORMED BY: Blackbay[address] [id number] BY: V[employer]ware[address] Postdeckin [place] [id number] Triglyceride mass conc 267 mg/dL Abnormal 0-149 [facility] Work Phone: Comment on above: PATIENT WAS FASTINGP ERFORMED BY: Blackbay[address] [id number] BY: XL Video Cybuym1167 [address] PostdeckAffinity Health Partners [id number] LIPOPROTEIN, BLD, BY NMR ([id number]) 114 mg/dL Abnormal 0-99 [facility] Work Phone: Comment on above: . Optimal < 100 Abov e optimal 100 - 129 Borderline 130 - 159 High 160 - 189 Very high > 189 .LDL-C is inaccurate if patient is non-fasting. PATIENT WAS FASTINGP ERFORMED BY: XL Video[address] [id number] BY: XL Video Quilcw1895 [address] Postdeckin [place] [id number] LIPOPROTEIN, BLD, BY NMR (17362) 52 mg/dL Normal [facility] Work Phone: Comment on above: PATIENT WAS FASTINGP ERFORMED BY: XL Video[address] [id number] BY: XL Video Givcwt1490 Barlow RoadDublin [place] [id number] LIPOPROTEIN, BLD, BY NMR ([id number]) 267 mg/dL Abnormal 0-149 [facility]; [facility] Work Phone: LIPOPROTEIN, BLD, BY NMR ([id number]) 219 mg/dL Abnormal 100-199 [facility]; [facility] Work Phone: METABOLIC PANEL, COMPREHENSI VE ([id number])Ordered By: Retail Presentation Specialist on 06-23-2018 Albumin mass conc 4.2 g/dL Normal 3.5-5.5 Compreh ensive Internal Medicine Work Phone: Comment on above: PATIENT WAS FASTINGP ERFORMED BY: Proxly[address] [place] [address] [id number] BY: Viableware[address] DigeratiDuke Raleigh Hospital [id number] Albumin/Globulin mass ratio 1.6 {ratio} Normal 1.2-2.2 [facility] Work Phone: Comment on above: PATIENT WAS FASTINGP ERFORMED BY: Blackbay[address] [id number] BY: [employer]6370 [facility] [id number] ALP [Catalytic activity/Vol] 69 U/L Normal 39-117 [facility]; [facility] Work Phone: ALP enzyme act/vol 69 [iU]/L Normal 39-117 [facility] Internal Medicine Work Phone: Comment on above: PATIENT WAS FASTINGP ERFORMED BY: Blackbay[address] [id number] BY: [employer]6370 [facility] [id number] ALT [Catalytic activity/Vol] 20 U/L Normal 0-32 [facility]; [facility] Work Phone: ALT enzyme act/vol 20 [iU]/L Normal 0-32 [facility] Internal Medicine Work Phone: Comment on above: PATIENT WAS FASTINGP ERFORMED BY: Blackbay[address] [id number] BY: LabXcode [employer] Xiwkjo0112 Barlow RoadDublin [place] [id number] AST [Catalytic activity/Vol] 13 U/L Normal 0-40 [facility]; [facility] Work Phone: AST enzyme act/vol 13 [iU]/L Normal 0-40 Compre hensive Internal Medicine Work Phone: Comment on above: PATIENT WAS FASTINGP ERFORMED BY: XL Video[address] [id number] BY: LabKindred Hospital Vikqzd3076 Barlow RoadDublin [place] [id number] Bilirubin [Mass/Vol] mg/dL Normal 0.0-1.2 Comp rehensive Internal Medicine; [facility] Work Phone: Bilirubin mass conc mg/dL Normal 0.0-1.2 Compr ensive Internal Medicine Work Phone: Comment on above: PATIENT WAS FASTINGP ERFORMED BY: XL Video[address] [id number] BY: LabXcode Life SciencesChilton Memorial HospitalPgdect2141 Barlow RoadDuin [place] [id number] Calcium mass conc 9.1 mg/dL Normal 8.7-10.2 Compreh ensive Internal Medicine Work Phone: Comment on above: PATIENT WAS FASTINGP ERFORMED BY: XL Video[address] [id number] BY: LabXcode [employer] Nspdii9637 Barlow RoadNovant Healthin [place] [id number] Chloride molar conc 108 mmol/L Abnormal 96-106 Compr ensive Internal Medicine Work Phone: Comment on above: PATIENT WAS FASTINGP ERFORMED BY: XL Video[address] [id number] BY: LabKindred Hospital Ibzrbd4607 [address] RoadDublin [place] [id number] CO2 molar conc 23 mmol/L Normal 20-29 Comprehens kena Internal Medicine Work Phone: Comment on above: PATIENT WAS FASTINGP ERFORMED BY: [facility] [address] [id number] BY: [facility] Ienlpf3378 [address] Roadblin [place] [id number] Creatinine mass conc 0.77 mg/dL Normal 0.57-1.00 Comp rehensive Internal Medicine Work Phone: Comment on above: PATIENT WAS FASTINGP ERFORMED BY: [facility] [address] [id number] BY: [facility] Azitsm4162 [address]low RoadNovant Healthin [place] [id number] GFR/1.73 sq M predicted among blacks CKD-EPI vol rate/area (S/P/Bld) 101 mL/min/1.73 Normal Comprehensiv e Internal Medicine Work Phone: Comment on above: PATIENT WAS FASTINGP ERFORMED BY: LabCo[address] [id number] BY: [facility] Nnuthv6547 [address] [facility] [id number] GFR/1.73 sq M predicted among non-blacks CKD-EPI vol rate/area (S/P/Bld) 87 mL/min/1.73 Normal [facility] Work Phone: Comment on above: PATIENT WAS FASTINGP ERFORMED BY: LabCo[address] [id number] BY: LabCo Mjtxlr4694 [address] [facility] [id number] Globulin mass conc (S) 2.7 g/dL Normal 1.5-4.5 [facility] Work Phone: Comment on above: PATIENT WAS FASTINGP ERFORMED BY: [facility] [address] [id number] BY: LabCo Opnyte3467 [address] [facility] [id number] Glucose mass conc 95 mg/dL Normal 65-99 Compreh ensive Internal Medicine Work Phone: Comment on above: PATIENT WAS FASTINGP ERFORMED BY: LabCoPaul Ville 993127 [facility] [id number] BY: ANGIE [facility] Wmdokl6185 [address]low RoadDublin [place] [id number] Potassium molar conc 4.4 mmol/L Normal 3.5-5.2 Comp rehensive Internal Medicine Work Phone: Comment on above: PATIENT WAS FASTINGP ERFORMED BY: [facility] [address] [id number] BY: CB [facility] Pvezmz3590 [address]low RoadDublin [place] [id number] Protein mass conc 6.9 g/dL Normal 6.0-8.5 Compreh ensive Internal Medicine Work Phone: Comment on above: PATIENT WAS FASTINGP ERFORMED BY: LabCo[address] [id number] BY: CB [facility] Ghiwbe2020 [address]low RoadDublin [place] [id number] Sodium molar conc 146 mmol/L Abnormal 134-144 Compreh ensive Internal Medicine Work Phone: Comment on above: PATIENT WAS FASTINGP ERFORMED BY: LabCo[address] [id number] BY: [facility] Ccdybd3353 [address] RoadDublin [place] [id number] Urea nitrogen mass conc 12 mg/dL Normal 6-24 [facility] Work Phone: Comment on above: PATIENT WAS FASTINGP ERFORMED BY: [facility] [address] [id number] BY: CB [facility] Uoqeiv8421 [address]low RoadDublin [place] [id number] Urea nitrogen/Creatinine mass ratio 16 mg/mg Normal 9-23 [facility] Work Phone: Comment on above: PATIENT WAS FASTINGP ERFORMED BY: LabCo[address] [id number] BY: CB [facility] Kluscb6345 Barlow RoadDublin [place] [id number] MICROALBUMINOrdered By: Syst em Radio Interference Investigator on 06-23-2018 Albumin DL <= 20 mg/L mass conc (U) 10.0 ug/mL Normal [facility] Work Phone: Comment on above: PATIENT WAS FASTINGP ERFORMED BY: XL Video[address] [id number] BY: ANGIE [facility]6370 [facility] [id number] Albumin/Creatinine mass ratio (U) 4.7 {mg/g_creat} Normal 0.0-30.0 [facility] Work Phone: Comment on above: Normal: 0.0 - 30.0 A lbuminuria: 31.0 - 300.0 Clinical albuminuria: >300.0 PATIENT WAS FASTINGP ERFORMED BY: XL Video[address] [id number] BY: ANGIE [place]kyRay[place] [id number] [facility] [id number] Creatinine mass conc (U) 211.5 mg/dL Normal [facility] Work Phone: Comment on above: PATIENT WAS FASTINGP ERFORMED BY: Clerky[address] [id number] BY: ANGIE [facility] CenterNathan Oecxea2610 [facility] [id number] Microscopic ExaminationOrder ed By: Retail Presentation Specialist on 06-23-2018 Bacteria LM.HPF #/area (Urine sed) None seen Normal [facility] Work Phone: Comment on above: PATIENT WAS FASTINGP ERFORMED BY: Clerky[address] [id number] BY: ANGIE [place] 3686170 [facility] [id number] Casts LM Nom (Urine sed) Hyaline casts Normal [facility] Work Phone: Comment on above: PATIENT WAS FASTINGP ERFORMED BY: Clerky[address] [id number] BY: ANGIE EstradaKindred Hospital Avvrzn4041 Barlow RoadDublin [place] [id number] Casts LM Ql (Urine sed) Present Abnormal [facility] Work Phone: Comment on above: PATIENT WAS FASTINGP ERFORMED BY: [address] [id number] BY: [facility] Lcnuvb2479 Barlow RoadDublin [place] [id number] Crystals LM Nom (Urine sed) Calcium Oxalate Normal [facility] Work Phone: Comment on above: PATIENT WAS FASTINGP ERFORMED BY: [address] [id number] BY: [facility] [facility] Centerblin [place] [id number] Epithelial cells LM.HPF #/area (Urine sed) 0-10 Normal 0 - 10 [facility] Work Phone: Comment on above: PATIENT WAS FASTINGP ERFORMED BY: [address] [id number] BY: LabUniversity [facility] RoadDublin [place] [id number] Mucus Ql (Urine sed) Present Normal Comp rehensive Internal Medicine Work Phone: Comment on above: PATIENT WAS FASTINGP ERFORMED BY: [address] [id number] BY: [facility] RoadDublin [place] [id number] RBC LM.HPF #/area (Urine sed) 0-2 Normal 0 - 2 [facility] Work Phone: Comment on above: PATIENT WAS FASTINGP ERFORMED BY: [address] [id number] BY: [facility] Nevvuz8[address]low RoadDublin [place] [id number] Unidentified crystals LM Ql (Urine sed) Present Abnormal [facility] Work Phone: Comment on above: PATIENT WAS FASTINGP ERFORMED BY: BN [facility] [address] [id number] BY: ANGIE [facility] Lpdlvl1253 Barlow RoadDublin [place] [id number] WBC LM.HPF #/area (Urine sed) 0-5 Normal 0 - 5 [facility] Work Phone: Comment on above: PATIENT WAS FASTINGP ERFORMED BY: [facility] [address] [id number] BY: ANGIE [facility] Qlmafs8716 Barlow RoadDublin [place] [id number] Request Problemon 06-23-2018 Request Problem Comprehen sive Internal Medicine Work Phone: Comment on above: PATIENT NOT FASTINGP ERFORMED BY: ANGIE [facility] Gvzjlp1134 Barlow RoadDuin [place] [id number] TSH ([id number])Ordered By: Syste m Radio Interference Investigator on 06-23-2018 Thyrotropin Qn 1.400 {uIU/mL} Normal 0.450-4.50 0 [facility] Work Phone: Comment on above: PATIENT WAS FASTINGP ERFORMED BY: LabCo[address] [id number] BY: ANGIE [facility] Yapxgf[address] Holland HospitalDuin [place] [id number] URINALYSIS, W/ MICRO ([id number]) Ordered By: Retail Presentation Specialist on 06-23-2018 Appearance Nom (U) Cloudy Abnormal Compre hensive Internal Medicine Work Phone: Comment on above: PATIENT WAS FASTINGP ERFORMED BY: [facility] [address] [id number] BY: [facility] Uhkbyn0222 Barlow RoadDublin [place] [id number] Bilirubin Ql (U) Negative Normal Comprehe nsive Internal Medicine Work Phone: Comment on above: PATIENT WAS FASTINGP ERFORMED BY: [facility]Co[address] [id number] BY: [facility] Djxgyj0997 [address]low RoadDublin [place] [id number] Bilirubin Ql (U) Negative Normal Comprehe nsive Internal Medicine; [facility] Work Phone: Color Nom (U) Yellow Normal Comprehensi ve Internal Medicine Work Phone: Comment on above: PATIENT WAS FASTINGP ERFORMED BY: Lab[address] [id number] BY: ANGIE [facility] Mnwzik3424 [address] RoadDublin [place] [id number] Glucose Ql (U) Negative Normal Comprehens kena [facility] Medicine Work Phone: Comment on above: PATIENT WAS FASTINGP ERFORMED BY: Lab[address] [id number] BY: ANGIE [facility] Hakodt94[address] RoadDublin [place] [id number] Glucose Ql (U) Negative Normal Comprehens kena [facility]; [facility] Work Phone: Hemoglobin Ql (U) Trace Abnormal Compreh ensive Internal Medicine Work Phone: Comment on above: PATIENT WAS FASTINGP ERFORMED BY: Lab[address] [id number] BY: ANGIE [facility] Clpmiw2492 [address] RoadDublin [place] [id number] Ketones Ql (U) Negative Normal Comprehens kena [facility] Work Phone: Comment on above: PATIENT WAS FASTINGP ERFORMED BY: LabCo[address] [id number] BY: ANGIE [facility] Crqxgs1540 [address] RoadDublin [place] [id number] Ketones Ql (U) Negative Normal Comprehens kena [facility]; [facility] Work Phone: Leukocyte esterase Test strip Ql (U) Trace Abnormal [facility] Work Phone: Comment on above: PATIENT WAS FASTINGP ERFORMED BY: Lab[address] [id number] BY: ANGIE EstradaKindred Hospital Bgrnvs6315 [address]low RoadDublin [place] [id number] Microscopic observation LM Nom (Urine sed) See below: Normal [facility] Work Phone: Comment on above: Microscopic was ale cated and was performed. PATIENT WAS FASTINGP ERFORMED BY: Clerky[address] [id number] BY: [facility] RoadDublin [place] [id number] Nitrite Ql (U) Negative Normal Comprehens kena [facility] Work Phone: Comment on above: PATIENT WAS FASTINGP ERFORMED BY: Clerky[address] [id number] BY: [facility] RoadDublin [place] [id number] Nitrite Ql (U) Negative Normal Comprehens kena [facility]; [facility] Work Phone: pH (U) 5.0 [pH] Normal 5.0-7.5 [facility] Work Phone: Comment on above: PATIENT WAS FASTINGP ERFORMED BY: Clerky[address] [id number] BY: [facility]6[address] RoadDuin [place] [id number] Protein Ql (U) Negative Normal Comprehens kena [facility] Work Phone: Comment on above: PATIENT WAS FASTINGP ERFORMED BY: Clerky[address] [id number] BY: [facility]6[address] RoadDuin [place] [id number] Protein Ql (U) Negative Normal Comprehens kena [facility]; [facility] Work Phone: Specific gravity Relative Density (U) 1.027 1 Normal 1.005-1.03 0 [facility] Work Phone: Comment on above: PATIENT WAS FASTINGP ERFORMED BY: Cler[address] [id number] BY: ANGIE ClerkyCo Rgurav2195 [address]low RoadDublin [place] [id number] Urobilinogen (U) [Mass/Vol] 0.2 mg/dL Normal 0.2-1.0 [facility]; [facility] Work Phone: Urobilinogen Test strip mass conc (U) 0.2 mg/dL Normal 0.2-1.0 Comprehensiv e Internal Medicine Work Phone: Comment on above: PATIENT WAS FASTINGP ERFORMED BY: LabJennifer Ville 573447 [facility] [id number] BY: ANGIE LabKindred Hospital Jjgwdy9281 Barlow RoadRoot Orangeblin [place] [id number] C-REACTIVE PROTEIN ([id number])Or dered By: Retail Presentation Specialist on 06-16-2018 CRP mass conc 5.2 mg/L Abnormal 0.0-4.9 Comprehensi ve Internal Medicine Work Phone: Comment on above: PATIENT NOT FASTINGP ERFORMED BY: ANGIE [employer] Eblgij5422 Barlow RoadRoot Orangeblin [place] [id number] MICROALBUMINOrdered By: Syst em Radio Interference Investigator on 06-16-2018 Albumin DL <= 20 mg/L mass conc (U) 11.8 ug/mL Normal [facility] Work Phone: Comment on above: PATIENT NOT FASTINGP ERFORMED BY: ANGIE XL Video Crjskc0966 Barlow RoadDublin [place] [id number] Albumin/Creatinine mass ratio (U) 6.2 {mg/g_creat} Normal 0.0-30.0 [facility] Work Phone: Comment on above: Normal: 0.0 - 30.0 A lbuminuria: 31.0 - 300.0 Clinical albuminuria: >300.0 PATIENT NOT FASTINGP ERFORMED BY: ANGIE [facility] Ywpsjv9813 Barlow RoadDublin [place] [id number] Creatinine mass conc (U) 189.4 mg/dL Normal [facility] Work Phone: Comment on above: PATIENT NOT FASTINGP ERFORMED BY: ANGIE [facility] Lneuau1522 [address] RoadDublin [place] [id number] Microscopic ExaminationOrder ed By: Retail Presentation Specialist on 06-16-2018 Bacteria LM.HPF #/area (Urine sed) Few Normal [facility] Work Phone: Comment on above: PATIENT NOT FASTINGP ERFORMED BY: CB [facility] Klpmcc8046 [address]low RoadDublin [place] [id number] Crystals LM Nom (Urine sed) Amorphous Sediment Normal [facility] Work Phone: Comment on above: PATIENT NOT FASTINGP ERFORMED BY: [facility] Ftckot4874 [address]low RoadDublin [place] [id number] Epithelial cells LM.HPF #/area (Urine sed) /[HPF] Abnormal 0 - 10 [facility] Work Phone: Comment on above: PATIENT NOT FASTINGP ERFORMED BY: [facility] Rnwxey2273 [address] RoadDublin [place] [id number] Mucus Ql (Urine sed) Present Normal Comp rehensive [facility] Medicine Work Phone: Comment on above: PATIENT NOT FASTINGP ERFORMED BY: [facility] Ahnpii7792 [address] RoadDublin [place] [id number] RBC LM.HPF #/area (Urine sed) 3-10 Abnormal 0 - 2 [facility] Work Phone: Comment on above: PATIENT NOT FASTINGP ERFORMED BY: [facility] Mzjahg4578 [address]low RoadDublin [place] [id number] Unidentified crystals LM Ql (Urine sed) Present Abnormal [facility] Work Phone: Comment on above: PATIENT NOT FASTINGP ERFORMED BY: CB [facility] Nlsxmp4317 [address] RoadDublin [place] [id number] WBC LM.HPF #/area (Urine sed) 0-5 Normal 0 - 5 [facility] Work Phone: Comment on above: PATIENT NOT FASTINGP ERFORMED BY: CB [facility] Tekueh0668 [address] RoadDublin [place] [id number] Request Problemon 06-16-2018 Request Problem Comprehen sive Internal Medicine Work Phone: Comment on above: PATIENT NOT FASTINGP ERFORMED BY: ANGIE [facility] Szaqcy2128 [address]low RoadDublin [place] [id number] Request Problem Comprehen sive Internal Medicine Work Phone: Comment on above: PATIENT NOT FASTINGP ERFORMED BY: ANGIE [facility] Dqweeq4578 [address]low RoadDublin [place] [id number] Sed Rate Erythrocyte (65640) Ordered By: Retail Presentation Specialist on 06-16-2018 ESR Velocity (Bld) 8 mm/h Normal 0-40 Compre [facility] Work Phone: Comment on above: PATIENT NOT FASTINGP ERFORMED BY: ANGIE [facility] Hjbiuj0552 [address] RoadDublin [place] [id number] URINALYSIS, W/ MICRO ([id number]) Ordered By: Retail Presentation Specialist on 06-16-2018 Appearance Nom (U) Cloudy Abnormal Compre [facility] Work Phone: Comment on above: PATIENT NOT FASTINGP ERFORMED BY: ANGIE [facility] Knfvat4267 [address] RoadDublin [place] [id number] Bilirubin Ql (U) Negative Normal Comprehe nsive Internal Medicine Work Phone: Comment on above: PATIENT NOT FASTINGP ERFORMED BY: ANGIE [facility] Subopv7222 [address] RoadDublin [place] [id number] Bilirubin Ql (U) Negative Normal Comprehe nsive Internal Medicine; [facility] Work Phone: Color Nom (U) Yellow Normal Comprehensi ve Internal Medicine Work Phone: Comment on above: PATIENT NOT FASTINGP ERFORMED BY: CB [facility] Pfqcaz9737 [address] RoadDublin [place] [id number] Glucose Ql (U) Negative Normal Comprehens kena [facility] Work Phone: Comment on above: PATIENT NOT FASTINGP ERFORMED BY: CB [facility] Bnjlef0107 [address] RoadDublin [place] [id number] Glucose Ql (U) Negative Normal Comprehens kena [facility]; [facility] Work Phone: Hemoglobin Ql (U) Trace Abnormal Compreh ensive [facility] Medicine Work Phone: Comment on above: PATIENT NOT FASTINGP ERFORMED BY: ANGIE [facility] Gmcqqe3131 [address] RoadDublin [place] [id number] Ketones Ql (U) Negative Normal Comprehens kena [facility] Work Phone: Comment on above: PATIENT NOT FASTINGP ERFORMED BY: ANGIE [facility] Zqschq0501 [address] RoadDublin [place] [id number] Ketones Ql (U) Negative Normal Comprehens kena [facility]; [facility] Work Phone: Leukocyte esterase Test strip Ql (U) 1+ Abnormal [facility] Work Phone: Comment on above: PATIENT NOT FASTINGP ERFORMED BY: ANGIE [facility] Noeicq3593 [address] RoadDublin [place] [id number] Microscopic observation LM Nom (Urine sed) See below: Normal [facility] Work Phone: Comment on above: Microscopic was ale cated and was performed. PATIENT NOT FASTINGP ERFORMED BY: ANGIE [facility] Mzvksj7755 [address]low RoadDublin [place] [id number] Nitrite Ql (U) Negative Normal Comprehens kena [facility] Work Phone: Comment on above: PATIENT NOT FASTINGP ERFORMED BY: ANGIE [facility] Pwcdkc5036 [address] RoadDublin [place] [id number] Nitrite Ql (U) Negative Normal Comprehens [facility]; [facility] Work Phone: pH (U) 5.5 [pH] Normal 5.0-7.5 [facility] Work Phone: Comment on above: PATIENT NOT FASTINGP ERFORMED BY: ANGIE [facility] Ysedbn1758 [address]low RoadDublin [place] [id number] Protein Ql (U) Negative Normal Comprehens kena [facility] Work Phone: Comment on above: PATIENT NOT FASTINGP ERFORMED BY: ANGIE [facility] Whmtnn6410 [address] RoadDublin [place] [id number] Protein Ql (U) Negative Normal Comprehens kena [facility]; [facility] Work Phone: Specific gravity Relative Density (U) 1.026 1 Normal 1.005-1.03 0 [facility] Work Phone: Comment on above: PATIENT NOT FASTINGP ERFORMED BY: ANGIE XL VideoChilton Memorial HospitalLafhsk1635 [facility] [id number] Urobilinogen (U) [Mass/Vol] 0.2 mg/dL Normal 0.2-1.0 [facility]; [facility] Work Phone: Urobilinogen Test strip mass conc (U) 0.2 mg/dL Normal 0.2-1.0 [facility] e [facility] Work Phone: Comment on above: PATIENT NOT FASTINGP ERFORMED BY: ANGIE XL Videojinny Obvcku9460 [facility] [id number] CBC W/AUTO DIFF WBC ([id number])O rdered By: Retail Presentation Specialist on 02-07-2017 Basophils (Bld) [#/Vol] 0.0 {x10E3/uL} Normal 0.0-0.2 [facility] Work Phone: Comment on above: PATIENT WAS FASTINGP ERFORMED BY: ANGIE XL VideoChilton Memorial HospitalLkdtrh4209 [facility] [id number] Basophils (Bld) [#/Vol] 0.0 10*3/uL Normal 0.0-0.2 [facility]; [facility] Work Phone: Basophils Auto #/vol (Bld) 0.0 {x10E3/uL} Normal 0.0-0.2 [facility] Work Phone: Basophils/100 WBC (Bld) 0 % Normal [facility] Work Phone: Comment on above: PATIENT WAS FASTINGP ERFORMED BY: ANGIE XL VideoChilton Memorial HospitalHnvomh8548 [facility] [id number] Basophils/100 WBC Auto (Bld) 0 % Normal [facility] Work Phone: Eosinophils (Bld) [#/Vol] 0.2 {x10E3/uL} Normal 0.0-0.4 [facility] Work Phone: Comment on above: PATIENT WAS FASTINGP ERFORMED BY: ANGIE XL Video Xtsfqh1821 [address] DigeratiDuke Raleigh Hospital [id number] Eosinophils (Bld) [#/Vol] 0.2 10*3/uL Normal 0.0-0.4 [facility]; [facility] Work Phone: Eosinophils Auto #/vol (Bld) 0.2 {x10E3/uL} Normal 0.0-0.4 [facility] Work Phone: Eosinophils/100 WBC (Bld) 3 % Normal [facility] Work Phone: Comment on above: PATIENT WAS FASTINGP ERFORMED BY: ANGIE XL Video Scspbh2249 [address] DigeratiDuke Raleigh Hospital [id number] Eosinophils/100 WBC Auto (Bld) 3 % Normal [facility] Work Phone: Erythrocyte distribution width (RBC) [Ratio] 14.0 % Normal 12.3-15.4 [facility] Work Phone: Comment on above: PATIENT WAS FASTINGP ERFORMED BY: ANGIE XL Video Cpwvav1979 [address] DigeratiDuke Raleigh Hospital [id number] Erythrocyte distribution width Auto Ratio (RBC) 14.0 % Normal 12.3-15.4 [facility] Work Phone: Hematocrit (Bld) [Volume fraction] 37.9 % Normal 34.0-46.6 [facility] Work Phone: Comment on above: PATIENT WAS FASTINGP ERFORMED BY: XL Video Sjmeoj8868 [address] DigeratiDuke Raleigh Hospital [id number] Hematocrit Auto Volume Fraction (Bld) 37.9 % Normal 34.0-46.6 [facility] Internal Medicine Work Phone: Hemoglobin mass conc (Bld) 13.0 g/dL Normal 11.1-15.9 [facility] Work Phone: Comment on above: PATIENT WAS FASTINGP ERFORMED BY: XL Video Ehbhma1968 [address] DigeratiDuke Raleigh Hospital [id number] Immature granulocytes #/vol (Bld) 0.0 {x10E3/uL} Normal 0.0-0.1 [facility] Work Phone: Comment on above: PATIENT WAS FASTINGP ERFORMED BY: [place] 0583670 [facility] [id number] Immature granulocytes (Bld) [#/Vol] 0.0 10*3/uL Normal 0.0-0.1 [facility]; [facility] Work Phone: Immature granulocytes/100 WBC (Bld) 0 % Normal [facility] Work Phone: Comment on above: PATIENT WAS FASTINGP ERFORMED BY: [address] [id number] Lymphocytes (Bld) [#/Vol] 2.4 {x10E3/uL} Normal 0.7-3.1 [facility] Work Phone: Comment on above: PATIENT WAS FASTINGP ERFORMED BY: [place] 0583670 [facility] [id number] Lymphocytes (Bld) [#/Vol] 2.4 10*3/uL Normal 0.7-3.1 [facility]; [facility] Work Phone: Lymphocytes Auto #/vol (Bld) 2.4 {x10E3/uL} Normal 0.7-3.1 [facility] Work Phone: Lymphocytes/100 WBC (Bld) 33 % Normal [facility] Work Phone: Comment on above: PATIENT WAS FASTINGP ERFORMED BY: [place] 0583670 [facility] [id number] Lymphocytes/100 WBC Auto (Bld) 33 % Normal [facility] Work Phone: MCH (RBC) [Entitic mass] 29.5 pg Normal 26.6-33.0 [facility] Work Phone: Comment on above: PATIENT WAS FASTINGP ERFORMED BY: [address] [id number] MCH Auto Entitic mass (RBC) 29.5 pg Normal 26.6-33.0 [facility] Work Phone: MCHC (RBC) [Mass/Vol] 34.3 g/dL Normal 31.5-35.7 [facility] prehensive Internal Medicine Work Phone: Comment on above: PATIENT WAS FASTINGP ERFORMED BY: [facility]6370 [facility] [id number] MCHC Auto mass conc (RBC) 34.3 g/dL Normal 31.5-35.7 [facility] Internal Medicine Work Phone: MCV (RBC) [Entitic vol] 86 fL Normal 79-97 [facility] Work Phone: Comment on above: PATIENT WAS FASTINGP ERFORMED BY: [facility] HospitalXcode Life SciencesChilton Memorial HospitalAcmbzx84[address] [place] [address] [id number] MCV Auto Entitic volume (RBC) 86 fL Normal 79-97 [facility] Work Phone: Monocytes (Bld) [#/Vol] 0.4 {x10E3/uL} Normal 0.1-0.9 [facility] Work Phone: Comment on above: PATIENT WAS FASTINGP ERFORMED BY: [facility]6370 [facility] [id number] Monocytes (Bld) [#/Vol] 0.4 10*3/uL Normal 0.1-0.9 [facility]; [facility] Work Phone: Monocytes Auto #/vol (Bld) 0.4 {x10E3/uL} Normal 0.1-0.9 [facility] Work Phone: Monocytes/100 WBC (Bld) 5 % Normal [facility] Work Phone: Comment on above: PATIENT WAS FASTINGP ERFORMED BY: [place] 0583670 [facility] [id number] Monocytes/100 WBC Auto (Bld) 5 % Normal [facility] Work Phone: Neutrophils (Bld) [#/Vol] 4.2 {x10E3/uL} Normal 1.4-7.0 [facility] Work Phone: Comment on above: PATIENT WAS FASTINGP ERFORMED BY: ANGIE LabAsher SternQdkdxh6906 [facility] [id number] Neutrophils (Bld) [#/Vol] 4.2 10*3/uL Normal 1.4-7.0 [facility]; [facility] Work Phone: Neutrophils Auto #/vol (Bld) 4.2 {x10E3/uL} Normal 1.4-7.0 [facility] Work Phone: Neutrophils/100 WBC (Bld) 59 % Normal [facility] Work Phone: Comment on above: PATIENT WAS FASTINGP ERFORMED BY: ANGIE Sternlin6370 [facility] [id number] Neutrophils/100 WBC Auto (Bld) 59 % Normal [facility] Work Phone: Platelets (Bld) [#/Vol] 233 {x10E3/uL} Normal 150-379 [facility] Work Phone: Comment on above: PATIENT WAS FASTINGP ERFORMED BY: ANGIE Sternlin6370 [facility] [id number] Platelets (Bld) [#/Vol] 233 10*3/uL Normal 150-379 [facility]; [facility] Work Phone: Platelets Auto #/vol (Bld) 233 {x10E3/uL} Normal 150-379 [facility] Work Phone: RBC (Bld) [#/Vol] 4.41 {x10E6/uL} Normal 3.77-5.28 [facility] Internal Medicine Work Phone: Comment on above: PATIENT WAS FASTINGP ERFORMED BY: ANGIE LabAsher Adbwve4221 [facility] [id number] RBC (Bld) [#/Vol] 4.41 10*6/uL Normal 3.77-5.28 [facility] Internal Medicine; [facility] Work Phone: RBC Auto #/vol (Bld) 4.41 {x10E6/uL} Normal 3.77-5.28 [facility] Work Phone: WBC (Bld) [#/Vol] 7.2 {x10E3/uL} Normal 3.4-10.8 [facility] prehensive Internal Medicine Work Phone: Comment on above: PATIENT WAS FASTINGP ERFORMED BY: ANGIE [employer]70 MandaeD[facility] Hospital [id number] WBC (Bld) [#/Vol] 7.2 10*3/uL Normal 3.4-10.8 [facility] Internal Medicine; [facility] Work Phone: WBC Auto #/vol (Bld) 7.2 {x10E3/uL} Normal 3.4-10.8 [facility] Work Phone: LIPID PANEL ([id number])Ordered B y: Retail Presentation Specialist on 02-07-2017 Cholesterol in HDL mass conc 64 mg/dL Normal [facility] Work Phone: Comment on above: PATIENT WAS FASTINGP ERFORMED BY: ANGIE [employer]70 MedialiveAffinity Health Partners [id number] Cholesterol in LDL mass conc 128 mg/dL Abnormal 0-99 [facility] Work Phone: Comment on above: PATIENT WAS FASTINGP ERFORMED BY: ANGIE [employer]6370 MandaeD[facility] Hospital [id number] Cholesterol in LDL/Cholesterol in HDL mass ratio 2.0 {ratio_units} Normal 0.0-3.2 [facility] Work Phone: Comment on above: LDL/HDL Ratio Men Wo men 1/2 Avg.Risk 1.0 1.5 Avg.Risk 3.6 3.2 2X Avg.Risk 6.2 5.0 3X Avg.Risk 8.0 6.1 PATIENT WAS FASTINGP ERFORMED BY: ANGIE [employer]6370 MedialiveAffinity Health Partners [id number] Cholesterol in VLDL mass conc 28 mg/dL Normal 5-40 [facility] Work Phone: Comment on above: PATIENT WAS FASTINGP ERFORMED BY: ANGIE [facility] Akzgtl3782 [facility] [place] [id number] Cholesterol mass conc 220 mg/dL Abnormal 100-199 Com prehensive Internal Medicine Work Phone: Comment on above: PATIENT WAS FASTINGP ERFORMED BY: ANGIE [facility] Ubsgvn0588 [facility] [place] [id number] Triglyceride mass conc 139 mg/dL Normal 0-149 [facility] Work Phone: Comment on above: PATIENT WAS FASTINGP ERFORMED BY: ANGIE [facility] Yphviy1123 [facility] [id number] METABOLIC PANEL, COMPREHENSI VE ([id number])Ordered By: Retail Presentation Specialist on 02-07-2017 Albumin mass conc 4.5 g/dL Normal 3.5-5.5 Compreh ensive Internal Medicine Work Phone: Comment on above: PATIENT WAS FASTINGP ERFORMED BY: ANGIE LabAsher SternGmwlxm1807 [facility] [id number] Albumin/Globulin mass ratio 2.0 {ratio} Normal 1.2-2.2 [facility] Work Phone: Comment on above: PATIENT WAS FASTINGP ERFORMED BY: ANGIE LabAsher SternWkesqb2137 [facility] [id number] ALP [Catalytic activity/Vol] 80 U/L Normal 39-117 [facility]; [facility] Work Phone: ALP enzyme act/vol 80 [iU]/L Normal 39-117 [facility] Internal Medicine Work Phone: Comment on above: PATIENT WAS FASTINGP ERFORMED BY: ANGIE [facility] Ktxrmw9297 [facility] [place] [id number] ALT [Catalytic activity/Vol] 21 U/L Normal 0-32 [facility]; [facility] Work Phone: ALT enzyme act/vol 21 [iU]/L Normal 0-32 [facility] Internal Medicine Work Phone: Comment on above: PATIENT WAS FASTINGP ERFORMED BY: ANGIE Donnelly Gbuyux7909 [facility] [id number] AST [Catalytic activity/Vol] 13 U/L Normal 0-40 [facility]; [facility] Work Phone: AST enzyme act/vol 13 [iU]/L Normal 0-40 Compre hensive Internal Medicine Work Phone: Comment on above: PATIENT WAS FASTINGP ERFORMED BY: ANGIE Andrzej Vdiupo5350 [facility] [id number] Bilirubin mass conc 0.3 mg/dL Normal 0.0-1.2 Compr ehensive Internal Medicine Work Phone: Comment on above: PATIENT WAS FASTINGP ERFORMED BY: ANGIE Andrzej Fwyigs7839 [facility] [id number] Calcium mass conc 9.2 mg/dL Normal 8.7-10.2 Compreh ensive Internal Medicine Work Phone: Comment on above: PATIENT WAS FASTINGP ERFORMED BY: ANGIE Andrzej Utynbe9440 [facility] [id number] Chloride molar conc 105 mmol/L Normal 96-106 Compr ensive Internal Medicine Work Phone: Comment on above: PATIENT WAS FASTINGP ERFORMED BY: ANGIE Frederick Sternlin6370 [facility] [id number] CO2 molar conc 22 mmol/L Normal 18-29 Comprehens kena Internal Medicine Work Phone: Comment on above: PATIENT WAS FASTINGP ERFORMED BY: ANGIE Andrzej Tgprlw0007 [facility] [id number] Creatinine mass conc 0.67 mg/dL Normal 0.57-1.00 Comp [facility] Work Phone: Comment on above: PATIENT WAS FASTINGP ERFORMED BY: ANGIE Andrzej Dqmrdn3911 [facility] [id number] GFR/1.73 sq M predicted among blacks CKD-EPI vol rate/area (S/P/Bld) 116 mL/min/1.73 Normal Comprehensiv e Internal Medicine Work Phone: Comment on above: PATIENT WAS FASTINGP ERFORMED BY: ANGIE [facility] Aytzkq9142 [facility] [place] [id number] GFR/1.73 sq M predicted among non-blacks CKD-EPI vol rate/area (S/P/Bld) 101 mL/min/1.73 Normal [facility] Work Phone: Comment on above: PATIENT WAS FASTINGP ERFORMED BY: ANGIE [facility] Sofeqq0700 [facility] [id number] Globulin (S) [Mass/Vol] 2.3 g/dL Normal 1.5-4.5 [facility] Work Phone: Comment on above: PATIENT WAS FASTINGP ERFORMED BY: ANGIE [facility] Gupenl6544 [address] [facility] [id number] Globulin Calculated mass conc (S) 2.3 g/dL Normal 1.5-4.5 [facility] Work Phone: Glucose mass conc 92 mg/dL Normal 65-99 Compreh ensive Internal Medicine Work Phone: Comment on above: PATIENT WAS FASTINGP ERFORMED BY: ANGIE [facility] Iolnbp4875 [place] [facility] [id number] Potassium molar conc 5.3 mmol/L Abnormal 3.5-5.2 Comp rehensive Internal Medicine Work Phone: Comment on above: PATIENT WAS FASTINGP ERFORMED BY: ANGIE [facility] Kxkbzt9646 [facility] [id number] Protein mass conc 6.8 g/dL Normal 6.0-8.5 Compreh ensive Internal Medicine Work Phone: Comment on above: PATIENT WAS FASTINGP ERFORMED BY: ANGIE [facility] Ampatw8368 [place] [facility] [id number] Sodium molar conc 145 mmol/L Abnormal 134-144 Compreh ensive Internal Medicine Work Phone: Comment on above: PATIENT WAS FASTINGP ERFORMED BY: ANGIE [facility] Kklvov5806 [address] [facility] [id number] Urea nitrogen mass conc 12 mg/dL Normal 6-24 [facility] Work Phone: Comment on above: PATIENT WAS FASTINGP ERFORMED BY: ANGIE XL Video Rytfxl3926 [facility] [id number] Urea nitrogen/Creatinine mass ratio 18 mg/mg Normal 9-23 [facility] Work Phone: Comment on above: PATIENT WAS FASTINGP ERFORMED BY: ANGIE XL Video Eeftke0339 [facility] [id number] Rapid Flu (86444 x 2)Ordered By: Blanco Morrison on 06-02-2016 FLUAV Ag IA Ql (Throat) Negative Normal [facility] Work Phone: Rapid Flu (36730 x 2)on 05-16 FLUAV Ag IA Ql (Throat) Negative Normal [facility]; [facility] Work Phone: AMYLASE ([id number])Ordered By: Kristina lopeztem Radio Interference Investigator on 09-29-2015 Amylase enzyme act/vol 142 U/L Abnormal 31-124 [facility] Work Phone: Comment on above: Test(s) Potassium, S tima called to Fast on 09/30/2015 at 02:00 ESTPATIENT NOT FASTINGPERFORMED BY: ANGIE XL Video Jhghlf9919 [facility] [id number] CBC with auto diff (93849)Or dered By: Retail Presentation Specialist on 09-29-2015 Basophils (Bld) [#/Vol] 0.0 {x10E3/uL} Normal 0.0-0.2 [facility] Work Phone: Comment on above: Test(s) Potassium, S tima called to Fast on 09/30/2015 at 02:00 ESTPATIENT NOT FASTINGPERFORMED BY: ANGIE XL VideoChilton Memorial HospitalVlibmh9458 [facility] [id number] Information: [id number], [id number] Basophils (Bld) [#/Vol] 0.0 10*3/uL Normal 0.0-0.2 [facility]; [facility] Work Phone: Basophils Auto #/vol (Bld) 0.0 {x10E3/uL} Normal 0.0-0.2 [facility] Work Phone: Basophils/100 WBC (Bld) 0 % Normal [facility] Work Phone: Comment on above: Test(s) Potassium, S tima called to Dr Hooks on 09/30/2015 at 02:00 ESTPATIENT NOT FASTINGPERFORMED BY: [employer]it [employer]70 [facility] [id number] Information: [id number], [id number] Basophils/100 WBC Auto (Bld) 0 % Normal [facility] Work Phone: Eosinophils (Bld) [#/Vol] 0.2 {x10E3/uL} Normal 0.0-0.4 [facility] Work Phone: Comment on above: Test(s) Potassium, S tima called to Fast on 09/30/2015 at 02:00 ESTPATIENT NOT FASTINGPERFORMED BY: [employer]70 [facility] [id number] Information: [id number], 283047 Eosinophils (Bld) [#/Vol] 0.2 10*3/uL Normal 0.0-0.4 [facility]; [facility] Work Phone: Eosinophils Auto #/vol (Bld) 0.2 {x10E3/uL} Normal 0.0-0.4 [facility] Work Phone: Eosinophils/100 WBC (Bld) 2 % Normal [facility] Work Phone: Comment on above: Test(s) Potassium, S tima called to Fast on 09/30/2015 at 02:00 ESTPATIENT NOT FASTINGPERFORMED BY: [employer]70 [facility] [id number] Information: [id number], [id number] Eosinophils/100 WBC Auto (Bld) 2 % Normal [facility] Work Phone: Erythrocyte distribution width (RBC) [Ratio] 13.4 % Normal 12.3-15.4 [facility] Work Phone: Comment on above: Test(s) Potassium, S tima called to Fast on 09/30/2015 at 02:00 ESTPATIENT NOT FASTINGPERFORMED BY: ANGIE XL Videojinny Lhtiyz8875 [facility] [id number] Information: [id number], 115973 Erythrocyte distribution width Auto Ratio (RBC) 13.4 % Normal 12.3-15.4 [facility] Work Phone: Hematocrit (Bld) [Volume fraction] 40.5 % Normal 34.0-46.6 [facility] Work Phone: Comment on above: Test(s) Potassium, S tima called to Fast on 09/30/2015 at 02:00 ESTPATIENT NOT FASTINGPERFORMED BY: ANGIE XL Videojinny Iecocy3740 [facility] [id number] Information: [id number], [id number] Hematocrit Auto Volume Fraction (Bld) 40.5 % Normal 34.0-46.6 [facility] Internal Medicine Work Phone: Hemoglobin mass conc (Bld) 14.0 g/dL Normal 11.1-15.9 [facility] Work Phone: Comment on above: Test(s) Potassium, S tima called to Fast on 09/30/2015 at 02:00 ESTPATIENT NOT FASTINGPERFORMED BY: ANGIE XL Videojinny Vokbku8874 [facility] [id number] Information: [id number], 703127 Immature granulocytes #/vol (Bld) 0.0 {x10E3/uL} Normal 0.0-0.1 [facility] Work Phone: Comment on above: Test(s) Potassium, S tima called to Fast on 09/30/2015 at 02:00 ESTPATIENT NOT FASTINGPERFORMED BY: ANGIE Sternlin6370 [facility] [id number] Information: [id number], [id number] Immature granulocytes (Bld) [#/Vol] 0.0 10*3/uL Normal 0.0-0.1 [facility]; [facility] Work Phone: Immature granulocytes/100 WBC (Bld) 0 % Normal [facility] Work Phone: Comment on above: Test(s) Potassium, S tima called to Dr Hooks on 09/30/2015 at 02:00 ESTPATIENT NOT FASTINGPERFORMED BY: ANGIE XL Video IvyDate [facility] [id number] Information: [id number], [id number] Lymphocytes (Bld) [#/Vol] 2.6 {x10E3/uL} Normal 0.7-3.1 [facility] Work Phone: Comment on above: Test(s) Potassium, S tima called to Fast on 09/30/2015 at 02:00 ESTPATIENT NOT FASTINGPERFORMED BY: ANGIE Fermentalg [facility] [id number] Information: [id number], [id number] Lymphocytes (Bld) [#/Vol] 2.6 10*3/uL Normal 0.7-3.1 [facility]; [facility] Work Phone: Lymphocytes Auto #/vol (Bld) 2.6 {x10E3/uL} Normal 0.7-3.1 [facility] Work Phone: Lymphocytes/100 WBC (Bld) 36 % Normal [facility] Work Phone: Comment on above: Test(s) Potassium, S tima called to Dr Hooks on 09/30/2015 at 02:00 ESTPATIENT NOT FASTINGPERFORMED BY: Viableware70 [facility] [id number] Information: [id number], [id number] Lymphocytes/100 WBC Auto (Bld) 36 % Normal [facility] Work Phone: MCH (RBC) [Entitic mass] 30.4 pg Normal 26.6-33.0 [facility] Work Phone: Comment on above: Test(s) Potassium, S tima called to Dr Hooks on 09/30/2015 at 02:00 ESTPATIENT NOT FASTINGPERFORMED BY: [facility] Pdbzsb6670 [facility] [id number] Information: [id number], [id number] MCH Auto Entitic mass (RBC) 30.4 pg Normal 26.6-33.0 [facility] Work Phone: MCHC (RBC) [Mass/Vol] 34.6 g/dL Normal 31.5-35.7 [facility] prehensive Internal Medicine Work Phone: Comment on above: Test(s) Potassium, S tima called to Dr Hooks on 09/30/2015 at 02:00 ESTPATIENT NOT FASTINGPERFORMED BY: ANGIE XL Video Ikzfzd9618 [facility] [id number] Information: [id number], [id number] MCHC Auto mass conc (RBC) 34.6 g/dL Normal 31.5-35.7 [facility] Internal Medicine Work Phone: MCV (RBC) [Entitic vol] 88 fL Normal 79-97 [facility] Work Phone: Comment on above: Test(s) Potassium, S tima called to Dr Hooks on 09/30/2015 at 02:00 ESTPATIENT NOT FASTINGPERFORMED BY: XL Video Nyccsn2986 [facility] [id number] Information: [id number], [id number] MCV Auto Entitic volume (RBC) 88 fL Normal 79-97 [facility] Work Phone: Monocytes (Bld) [#/Vol] 0.4 {x10E3/uL} Normal 0.1-0.9 [facility] Work Phone: Comment on above: Test(s) Potassium, S tima called to Dr Hooks on 09/30/2015 at 02:00 ESTPATIENT NOT FASTINGPERFORMED BY: XL Video Iviaui8785 [facility] [id number] Information: [id number], [id number] Monocytes (Bld) [#/Vol] 0.4 10*3/uL Normal 0.1-0.9 [facility]; [facility] Work Phone: Monocytes Auto #/vol (Bld) 0.4 {x10E3/uL} Normal 0.1-0.9 [facility] Work Phone: Monocytes/100 WBC (Bld) 6 % Normal [facility] Work Phone: Comment on above: Test(s) Potassium, S tima called to Dr Hooks on 09/30/2015 at 02:00 ESTPATIENT NOT FASTINGPERFORMED BY: [employer]70 [facility] [id number] Information: [id number], [id number] Monocytes/100 WBC Auto (Bld) 6 % Normal [facility] Work Phone: Neutrophils (Bld) [#/Vol] 4.1 {x10E3/uL} Normal 1.4-7.0 [facility] Work Phone: Comment on above: Test(s) Potassium, S tima called to Dr Hooks on 09/30/2015 at 02:00 ESTPATIENT NOT FASTINGPERFORMED BY: [employer]70 [facility] [id number] Information: [id number], [id number] Neutrophils (Bld) [#/Vol] 4.1 10*3/uL Normal 1.4-7.0 [facility]; [facility] Work Phone: Neutrophils Auto #/vol (Bld) 4.1 {x10E3/uL} Normal 1.4-7.0 [facility] Work Phone: Neutrophils/100 WBC (Bld) 56 % Normal [facility] Work Phone: Comment on above: Test(s) Potassium, S tima called to Dr Hooks on 09/30/2015 at 02:00 ESTPATIENT NOT FASTINGPERFORMED BY: [facility] Ciiwtq6385 [facility] [id number] Information: [id number], [id number] Neutrophils/100 WBC Auto (Bld) 56 % Normal [facility] Work Phone: Platelets (Bld) [#/Vol] 233 {x10E3/uL} Normal 150-379 [facility] Work Phone: Comment on above: Test(s) Potassium, S tima called to Fast on 09/30/2015 at 02:00 ESTPATIENT NOT FASTINGPERFORMED BY: ANGIE XL Videojinny Vvjagw7742 [facility] [id number] Information: [id number], [id number] Platelets (Bld) [#/Vol] 233 10*3/uL Normal 150-379 [facility]; [facility] Work Phone: Platelets Auto #/vol (Bld) 233 {x10E3/uL} Normal 150-379 [facility] Work Phone: RBC (Bld) [#/Vol] 4.61 {x10E6/uL} Normal 3.77-5.28 [facility] Internal Medicine Work Phone: Comment on above: Test(s) Potassium, S tima called to Fast on 09/30/2015 at 02:00 ESTPATIENT NOT FASTINGPERFORMED BY: ANGIE [employer]it[employer] Bio6370 [facility] [id number] Information: [id number], [id number] RBC (Bld) [#/Vol] 4.61 10*6/uL Normal 3.77-5.28 [facility] Internal Medicine; [facility] Work Phone: RBC Auto #/vol (Bld) 4.61 {x10E6/uL} Normal 3.77-5.28 [facility] Work Phone: WBC (Bld) [#/Vol] 7.3 {x10E3/uL} Normal 3.4-10.8 [facility] Internal Medicine Work Phone: Comment on above: Test(s) Potassium, S tima called to Fast on 09/30/2015 at 02:00 ESTPATIENT NOT FASTINGPERFORMED BY: ANGIE XL Video Xqpgjx7602 [facility] [id number] Information: [id number], [id number] WBC (Bld) [#/Vol] 7.3 10*3/uL Normal 3.4-10.8 [facility]; [facility] Work Phone: WBC Auto #/vol (Bld) 7.3 {x10E3/uL} Normal 3.4-10.8 [facility] Work Phone: LIPASE ([id number])Ordered By: Deposco stem Radio Interference Investigator on 09-29-2015 Lipase enzyme act/vol 36 U/L Normal 0-59 Com prehensive Internal Medicine Work Phone: Comment on above: Test(s) Potassium, S tima called to Dr Fast on 09/30/2015 at 02:00 ESTPATIENT NOT FASTINGPERFORMED BY: ANGIE LabXcode Life Sciencesrp [id number] Medialivebl[place] [id number] Metabolic Panel, Comprehensi ve ([id number])Ordered By: Retail Presentation Specialist on 09-29-2015 Albumin mass conc 4.4 g/dL Normal 3.5-5.5 [facility] Internal Medicine Work Phone: Comment on above: Test(s) Potassium, S tima called to Fast on 09/30/2015 at 02:00 ESTPATIENT NOT FASTINGPERFORMED BY: Bitmenu LabLudium Lab70 Medialivein [place] [id number] Albumin/Globulin mass ratio 1.7 {ratio} Normal 1.1-2.5 [facility] Internal Medicine Work Phone: Comment on above: Test(s) Potassium, S tima called to Dr Fast on 09/30/2015 at 02:00 ESTPATIENT NOT FASTINGPERFORMED BY: Bitmenu LabXcode Life Sciencesrp Chfxbn9269 [address] [place] [id number] ALP [Catalytic activity/Vol] 61 U/L Normal 39-117 [facility]; [facility] Work Phone: ALP enzyme act/vol 61 [iU]/L Normal 39-117 [facility] Internal Medicine Work Phone: Comment on above: Test(s) Potassium, S tima called to Dr Fast on 09/30/2015 at 02:00 ESTPATIENT NOT FASTINGPERFORMED BY: Bitmenu LabByeCity6370 [place] [id number] ALT [Catalytic activity/Vol] 9 U/L Normal 0-32 [facility]; [facility] Internal Medicine Work Phone: ALT enzyme act/vol 9 [iU]/L Normal 0-32 [facility] Internal Medicine Work Phone: Comment on above: Test(s) Potassium, S tima called to Dr Fast on 09/30/2015 at 02:00 ESTPATIENT NOT FASTINGPERFORMED BY: CB LabXcode Life Sciencesrp Ixutjr8856 [facility] [id number] AST [Catalytic activity/Vol] 11 U/L Normal 0-40 [facility] Internal Medicine; [facility] Internal Medicine Work Phone: AST enzyme act/vol 11 [iU]/L Normal 0-40 [facility] Internal Medicine Work Phone: Comment on above: Test(s) Potassium, S tima called to Dr Fast on 09/30/2015 at 02:00 ESTPATIENT NOT FASTINGPERFORMED BY: ANGIE LabXcode Life Sciencesrp Ojiyjj1994 [facility]iveAff[facility] [id number] Bilirubin mass conc 0.3 mg/dL Normal 0.0-1.2 [facility] Internal Medicine Work Phone: Comment on above: Test(s) Potassium, S tima called to Dr Fast on 09/30/2015 at 02:00 ESTPATIENT NOT FASTINGPERFORMED BY: ANGIE LabXcode Life Sciencesrp [id number] [facility] [id number] Calcium mass conc 9.5 mg/dL Normal 8.7-10.2 [facility] Internal Medicine Work Phone: Comment on above: Test(s) Potassium, S tima called to Dr Fast on 09/30/2015 at 02:00 ESTPATIENT NOT FASTINGPERFORMED BY: LabXcode Life Sciencesrp [id number] [facility] [id number] Chloride molar conc 107 mmol/L Normal 97-108 [facility] Internal Medicine Work Phone: Comment on above: Test(s) Potassium, S tima called to Dr Fast on 09/30/2015 at 02:00 ESTPATIENT NOT FASTINGPERFORMED BY: ANGIE LabXcode Life Sciencesrp Nlsnvn5953 [facility] [id number] CO2 molar conc 21 mmol/L Normal 18-29 Comprehens kena Internal Medicine Work Phone: Comment on above: Test(s) Potassium, S tima called to Dr Hooks on 09/30/2015 at 02:00 ESTPATIENT NOT FASTINGPERFORMED BY: ANGIE XL Videorp Aedfyw7135 [facility] [id number] Creatinine mass conc 0.89 mg/dL Normal 0.57-1.00 Comp rehensive Internal Medicine Work Phone: Comment on above: Test(s) Potassium, S tima called to Dr Hooks on 09/30/2015 at 02:00 ESTPATIENT NOT FASTINGPERFORMED BY: [employer]it [employer]70 [facility] [id number] GFR/1.73 sq M predicted among blacks CKD-EPI vol rate/area (S/P/Bld) 86 mL/min/1.73 Normal Comprehensiv e Internal Medicine Work Phone: Comment on above: Test(s) Potassium, S tima called to Dr Hooks on 09/30/2015 at 02:00 ESTPATIENT NOT FASTINGPERFORMED BY: [employer]6370 [facility] [id number] GFR/1.73 sq M predicted among non-blacks CKD-EPI vol rate/area (S/P/Bld) 75 mL/min/1.73 Normal [facility] Work Phone: Comment on above: Test(s) Potassium, S tima called to Dr Hooks on 09/30/2015 at 02:00 ESTPATIENT NOT FASTINGPERFORMED BY: [employer]6370 [facility] [id number] Globulin (S) [Mass/Vol] 2.6 g/dL Normal 1.5-4.5 [facility] Work Phone: Comment on above: Test(s) Potassium, S tima called to Dr Hooks on 09/30/2015 at 02:00 ESTPATIENT NOT FASTINGPERFORMED BY: [employer]6370 [facility] [id number] Globulin Calculated mass conc (S) 2.6 g/dL Normal 1.5-4.5 [facility] Work Phone: Glucose mass conc 95 mg/dL Normal 65-99 Compreh ensive Internal Medicine Work Phone: Comment on above: Test(s) Potassium, S tima called to Dr Fast on 09/30/2015 at 02:00 ESTPATIENT NOT FASTINGPERFORMED BY: [employer]70 [facility]Aff[facility] [id number] Potassium molar conc 5.6 mmol/L Abnormal 3.5-5.2 Comp rehensive Internal Medicine Work Phone: Comment on above: Client Requested Fla g Test(s) Potassium, S tima called to Dr Fast on 09/30/2015 at 02:00 ESTPATIENT NOT FASTINGPERFORMED BY: ANGIE [employer]70 [facility] [id number] Protein mass conc 7.0 g/dL Normal 6.0-8.5 Compreh ensive Internal Medicine Work Phone: Comment on above: Test(s) Potassium, S tima called to Fast on 09/30/2015 at 02:00 ESTPATIENT NOT FASTINGPERFORMED BY: [employer]70 [facility] [id number] Sodium molar conc 144 mmol/L Normal 134-144 Compreh ensive Internal Medicine Work Phone: Comment on above: Test(s) Potassium, S tima called to Fast on 09/30/2015 at 02:00 ESTPATIENT NOT FASTINGPERFORMED BY: [employer]70 [facility] [id number] Urea nitrogen mass conc 15 mg/dL Normal 6-24 [facility] Work Phone: Comment on above: Test(s) Potassium, S tima called to Fast on 09/30/2015 at 02:00 ESTPATIENT NOT FASTINGPERFORMED BY: ANGIE [employer]70 [facility]iveAff[facility] [id number] Urea nitrogen/Creatinine mass ratio 17 mg/mg Normal 9-23 [facility] Work Phone: Comment on above: Test(s) Potassium, S tima called to Dr Hooks on 09/30/2015 at 02:00 ESTPATIENT NOT FASTINGPERFORMED BY: CB [facility] Kduzkj3662 [place] DigeratiNovant Healthin [place] [id number] Sed Rate Erythrocyte (12208) Ordered By: Retail Presentation Specialist on 09-29-2015 ESR Velocity (Bld) 6 mm/h Normal 0-40 Compre [facility] Internal Medicine Work Phone: Comment on above: Test(s) Kristina Christian tima called to Dr Hooks on 09/30/2015 at 02:00 ESTPATIENT NOT FASTINGPERFORMED BY: CB [facility] Zdwign0983 [place] [facility] [id number] URINE MALCOLM CULTURE-IDENTIFICA [place] ([id number])Ordered By: Retail Presentation Specialist on 09-29-2015 Bacteria identified Cx Nom (U) Proteus mirabilis Abnormal [facility] Work Phone: Comment on above: 400 Colonies/mL Test(s) Gion Kristina tima called to Dr Hooks on 09/30/2015 at 02:00 ESTPATIENT NOT FASTINGPERFORMED BY: [facility] Yjnzao8123 [place] D[facility]ati[facility] [id number] Bacteria identified Cx Nom (U) Final report Abnormal [facility] Work Phone: Comment on above: Test(s) Kristina Christian tima called to Dr Hooks on 09/30/2015 at 02:00 ESTPATIENT NOT FASTINGPERFORMED BY: [facility] Vdgabe2263 [place] [facility] [id number] Bacteria identified Cx Nom (U) Enterococcus faecalis Abnormal Comprehens kena Internal Medicine Work Phone: Comment on above: 1,000 Colonies/mLNot e: this isolate is vancomycin-susceptible.This information is provided for epidemiologic purposes only:vancomycin is not among the antibiotics recommended for therapyof urinary tract infections caused by Enterococcus.For Enterococcus species, cephalosporins, aminoglycosides (except forhigh-level resistance screening), clindamycin, and trimethoprim-sulfamethoxazole are not effective clinically. Fluoroquinolones areused primarily for treating urinary tract infections. (CLSI, P737-B46,2009) Test(s) Kristina Christian called to Dr Hooks on 09/30/2015 at 02:00 ESTPATIENT NOT FASTINGPERFORMED BY: ANGIE [employer] [facility]6370 [facility] [id number] Bacteria identified Cx Nom (U) ECV Abnormal [facility] Work Phone: Comment on above: Escherichia coli, id entified by an automated biochemical system.500 Colonies/mL Test(s) Potassium, S tima called to Dr Hooks on 09/30/2015 at 02:00 ESTPATIENT NOT FASTINGPERFORMED BY: ANGIE [employer] DigeratiDuke Raleigh Hospital [id number] Other Antibiotic [facility] prehensive Internal Medicine Work Phone: Comment on above: S = Susceptible; I = Intermediate; R = Resistant P = Positive; N = Negative MICS are expressed in micrograms per mL Antibiotic RSLT#1 RSLT#2 RSLT#3 RSLT#4Amoxicillin/Clavulanic Acid I SAmpicillin R SCefazolin RCefepime S SCeftriaxone S SCefuroxime I SCephalothin R SCiprofloxacin S S SErtapenem S SGentamicin S SImipenem SLevofloxacin S S SNitrofurantoin S S RPenicillin SPiperacillin R STetracycline R R RTobramycin S STrimethoprim/Sulfa R SVancomycin S Test(s) Potassium, S tima called to Dr Hooks on 09/30/2015 at 02:00 ESTPATIENT NOT FASTINGPERFORMED BY: ANGIE [employer] [facility]6370 [facility] [id number] Urinalysis, Office ([id number])Or dered By: Selena Santillan on 09-29-2015 Bilirubin Ql (U) Negative Normal Comprehe nsive Internal Medicine Work Phone: Bilirubin Ql (U) Negative Normal Comprehe nsive Internal Medicine; [facility] Work Phone: Glucose Test strip (U) [Mass/Vol] Negative Normal [facility]; [facility] Work Phone: Glucose Test strip mass conc (U) Negative Normal [facility] Work Phone: Hemoglobin Ql (U) Non Hemolyzed Moderate Normal [facility] Work Phone: Hemoglobin Test strip Ql (U) Non Hemolyzed Moderate Normal Comprehen sive Internal Medicine Work Phone: Ketones Ql (U) Negative Normal Comprehens kena Internal Medicine Work Phone: Ketones Ql (U) Negative Normal Comprehens kena [facility]; [facility] Work Phone: Leukocyte esterase Test strip Ql (U) Moderate Normal [facility] Work Phone: Nitrite Ql (U) Negative Normal Comprehens kena [facility] Work Phone: Nitrite Ql (U) Negative Normal Comprehens kena [facility]; [facility] Work Phone: Nitrite Test strip Ql (U) Negative Normal [facility] Work Phone: pH (U) 6 [pH] Abnormal [facility] Work Phone: pH Test strip (U) 6 [pH] Abnormal Compreh ensive Internal Medicine Work Phone: Protein Ql (U) Negative Normal Comprehens kena [facility] Work Phone: Protein Ql (U) Negative Normal Comprehens kena [facility]; [facility] Work Phone: Protein Test strip Ql (U) Negative Normal [facility] Work Phone: Specific gravity Relative Density (U) 1.030 1 Abnormal Comprehensi ve Internal Medicine Work Phone: Urobilinogen mass/time (24H U) Normal Normal [facility] Work Phone: C-Reactive Protein, QuantOrd ered By: Retail Presentation Specialist on 11-01-2014 CRP mass conc 1.1 mg/L Normal 0.0-4.9 Comprehensi ve Internal Medicine Work Phone: Comment on above: PATIENT NOT FASTINGP ERFORMED BY: [facility] Rucqop3478 [facility] [id number] CBC With Differential/Platel etOrdered By: Retail Presentation Specialist on 11-01-2014 Basophils (Bld) [#/Vol] 0.0 {x10E3/uL} Normal 0.0-0.2 [facility] Work Phone: Comment on above: PATIENT NOT FASTINGP ERFORMED BY: ANGIE Chan6370 [facility] [id number] Information: [id number] Basophils Auto #/vol (Bld) 0.0 {x10E3/uL} Normal 0.0-0.2 [facility] Work Phone: Basophils/100 WBC (Bld) 0 % Normal [facility] Work Phone: Comment on above: PATIENT NOT FASTINGP ERFORMED BY: ANGIE [facility] CenterAsher SternXldcud9674 [facility] [id number] Information: [id number] Basophils/100 WBC Auto (Bld) 0 % Normal [facility] Work Phone: Eosinophils (Bld) [#/Vol] 0.1 {x10E3/uL} Normal 0.0-0.4 [facility] Work Phone: Comment on above: PATIENT NOT FASTINGP ERFORMED BY: ANGIE [facility] Hospitaljinny SternNyqrqe3044 [facility] [id number] Information: [id number] Eosinophils Auto #/vol (Bld) 0.1 {x10E3/uL} Normal 0.0-0.4 [facility] Work Phone: Eosinophils/100 WBC (Bld) 2 % Normal [facility] Work Phone: Comment on above: PATIENT NOT FASTINGP ERFORMED BY: ANGIE [place] 3686170 [facility] [id number] Information: [id number] Eosinophils/100 WBC Auto (Bld) 2 % Normal [facility] Work Phone: Erythrocyte distribution width (RBC) [Ratio] 13.1 % Normal 12.3-15.4 [facility] Work Phone: Comment on above: PATIENT NOT FASTINGP ERFORMED BY: ANGIE [facility] CenterNathanrp Lixbxj3317[address] Murray Streetin [place] [id number] Information: [id number] Erythrocyte distribution width Auto Ratio (RBC) 13.1 % Normal 12.3-15.4 [facility] Work Phone: Hematocrit (Bld) [Volume fraction] 40.4 % Normal 34.0-46.6 [facility] Internal Medicine Work Phone: Comment on above: PATIENT NOT FASTINGP ERFORMED BY: [place] [id number] [facility] [id number] Information: [id number] Hematocrit Auto Volume Fraction (Bld) 40.4 % Normal 34.0-46.6 [facility] Internal Medicine Work Phone: Hemoglobin mass conc (Bld) 13.4 g/dL Normal 11.1-15.9 [facility] Work Phone: Comment on above: PATIENT NOT FASTINGP ERFORMED BY: [place] [id number] [facility] [id number] Information: [id number] Immature granulocytes #/vol (Bld) 0.0 {x10E3/uL} Normal 0.0-0.1 [facility] Work Phone: Comment on above: PATIENT NOT FASTINGP ERFORMED BY: [facility]6370 [facility] [id number] Information: [id number] Immature granulocytes/100 WBC (Bld) 0 % Normal [facility] Work Phone: Comment on above: PATIENT NOT FASTINGP ERFORMED BY: [facility]6370 [facility] [id number] Information: [id number] Lymphocytes (Bld) [#/Vol] 2.5 {x10E3/uL} Normal 0.7-3.1 [facility] Work Phone: Comment on above: PATIENT NOT FASTINGP ERFORMED BY: [place] 0583670 [facility] [id number] Information: [id number] Lymphocytes Auto #/vol (Bld) 2.5 {x10E3/uL} Normal 0.7-3.1 [facility] Work Phone: Lymphocytes/100 WBC (Bld) 35 % Normal [facility] Work Phone: Comment on above: PATIENT NOT FASTINGP ERFORMED BY: ANGIE [address] [id number] Information: [id number] Lymphocytes/100 WBC Auto (Bld) 35 % Normal [facility] Work Phone: MCH (RBC) [Entitic mass] 30.7 pg Normal 26.6-33.0 [facility] Work Phone: Comment on above: PATIENT NOT FASTINGP ERFORMED BY: ANGIE [address] [id number] Information: [id number] MCH Auto Entitic mass (RBC) 30.7 pg Normal 26.6-33.0 [facility] Internal Medicine Work Phone: MCHC (RBC) [Mass/Vol] 33.2 g/dL Normal 31.5-35.7 [facility] Internal Medicine Work Phone: Comment on above: PATIENT NOT FASTINGP ERFORMED BY: ANGIE [address] [id number] Information: [id number] MCHC Auto mass conc (RBC) 33.2 g/dL Normal 31.5-35.7 [facility] Work Phone: MCV (RBC) [Entitic vol] 92 fL Normal 79-97 [facility] Work Phone: Comment on above: PATIENT NOT FASTINGP ERFORMED BY: ANGIE [address] [id number] Information: [id number] MCV Auto Entitic volume (RBC) 92 fL Normal 79-97 [facility] Internal Medicine Work Phone: Monocytes (Bld) [#/Vol] 0.5 {x10E3/uL} Normal 0.1-0.9 [facility] Work Phone: Comment on above: PATIENT NOT FASTINGP ERFORMED BY: ANGIE Whitman70 [facility] [id number] Information: [id number] Monocytes Auto #/vol (Bld) 0.5 {x10E3/uL} Normal 0.1-0.9 [facility] Work Phone: Monocytes/100 WBC (Bld) 7 % Normal [facility] Work Phone: Comment on above: PATIENT NOT FASTINGP ERFORMED BY: ANGIE Chan6370 [facility] [id number] Information: [id number] Monocytes/100 WBC Auto (Bld) 7 % Normal [facility] Work Phone: Neutrophils (Bld) [#/Vol] 4.0 {x10E3/uL} Normal 1.4-7.0 [facility] Work Phone: Comment on above: PATIENT NOT FASTINGP ERFORMED BY: ANGIE Chan6370 [facility] [id number] Information: [id number] Neutrophils Auto #/vol (Bld) 4.0 {x10E3/uL} Normal 1.4-7.0 [facility] Work Phone: Neutrophils/100 WBC (Bld) 56 % Normal [facility] Work Phone: Comment on above: PATIENT NOT FASTINGP ERFORMED BY: ANGIE Sternlin6370 [facility] [id number] Information: [id number] Neutrophils/100 WBC Auto (Bld) 56 % Normal [facility] Work Phone: Platelets (Bld) [#/Vol] 221 {x10E3/uL} Normal 150-379 [facility] Work Phone: Comment on above: PATIENT NOT FASTINGP ERFORMED BY: ANGIE Sternlin6370 [facility] [id number] Information: [id number] Platelets Auto #/vol (Bld) 221 {x10E3/uL} Normal 150-379 [facility] Work Phone: RBC (Bld) [#/Vol] 4.37 {x10E6/uL} Normal 3.77-5.28 [facility] Internal Medicine Work Phone: Comment on above: PATIENT NOT FASTINGP ERFORMED BY: [facility] Eljhtj1198 [facility] [id number] Information: [id number] RBC Auto #/vol (Bld) 4.37 {x10E6/uL} Normal 3.77-5.28 [facility] Work Phone: WBC (Bld) [#/Vol] 7.1 {x10E3/uL} Normal 3.4-10.8 [facility] Internal Medicine Work Phone: Comment on above: PATIENT NOT FASTINGP ERFORMED BY: [facility] Health6370 [facility] [id number] Information: [id number] WBC Auto #/vol (Bld) 7.1 {x10E3/uL} Normal 3.4-10.8 [facility] Internal Medicine Work Phone: Comp. Metabolic Panel (14)Or dered By: Retail Presentation Specialist on 11-01-2014 Albumin mass conc 4.3 g/dL Normal 3.5-5.5 [facility]pre[facility] Internal Medicine Work Phone: Comment on above: PATIENT NOT FASTINGP ERFORMED BY: LabCoChilton Memorial HospitalOsgzfc8517 [facility] [id number] Albumin/Globulin mass ratio 2.0 {ratio} Normal 1.1-2.5 [facility] Work Phone: Comment on above: PATIENT NOT FASTINGP ERFORMED BY: XL VideoChilton Memorial HospitalLsfjas7507 [facility] [id number] ALP enzyme act/vol 61 [iU]/L Normal 39-117 Compre [facility] Internal Medicine Work Phone: Comment on above: PATIENT NOT FASTINGP ERFORMED BY: ANGIE [facility] Bkppoo0295 [address]low RoadDublin [place] [id number] ALT enzyme act/vol 11 [iU]/L Normal 0-32 Compre [facility] Internal Medicine Work Phone: Comment on above: PATIENT NOT FASTINGP ERFORMED BY: ANGIE [facility] Ymtmab4443 [address]low Roadblin [place] [id number] AST enzyme act/vol 13 [iU]/L Normal 0-40 Compre [facility] Internal Medicine Work Phone: Comment on above: PATIENT NOT FASTINGP ERFORMED BY: ANGIE LabCojinny SternZubnqq2720 Barlow RoadNovant Healthin [place] [id number] Bilirubin mass conc 0.3 mg/dL Normal 0.0-1.2 Compr ensive Internal Medicine Work Phone: Comment on above: PATIENT NOT FASTINGP ERFORMED BY: ANGIE Sternlin6370 [address] RoadNovant Healthin [place] [id number] Calcium mass conc 8.8 mg/dL Normal 8.7-10.2 Compreh ensive Internal Medicine Work Phone: Comment on above: PATIENT NOT FASTINGP ERFORMED BY: ANGIE Andrzejjinny SternOwmytk8747 [address]low RoadNovant Healthin [place] [id number] Chloride molar conc 102 mmol/L Normal 97-108 Compr ensive Internal Medicine Work Phone: Comment on above: PATIENT NOT FASTINGP ERFORMED BY: ANGIE [facility] Lhwhmc6245 [address] Roadblin [place] [id number] CO2 molar conc 24 mmol/L Normal 18-29 Comprehens kena Internal Medicine Work Phone: Comment on above: PATIENT NOT FASTINGP ERFORMED BY: ANGIE [facility] Jhfylv5668 [address]low RoadDublin [place] [id number] Creatinine mass conc 0.69 mg/dL Normal 0.57-1.00 Comp rehensive Internal Medicine Work Phone: Comment on above: PATIENT NOT FASTINGP ERFORMED BY: ANGIE [facility] Ebjtff[address] [facility]in [place] [id number] GFR/1.73 sq M predicted among blacks CKD-EPI vol rate/area (S/P/Bld) 117 mL/min/1.73 Normal Comprehensiv e Internal Medicine Work Phone: Comment on above: PATIENT NOT FASTINGP ERFORMED BY: ANGIE [facility] Qeanci0[address] [facility]in [place] [id number] GFR/1.73 sq M predicted among non-blacks CKD-EPI vol rate/area (S/P/Bld) 101 mL/min/1.73 Normal [facility] Work Phone: Comment on above: PATIENT NOT FASTINGP ERFORMED BY: ANGIE [facility] Tvyphh1168 [facility] [id number] Globulin (S) [Mass/Vol] 2.1 g/dL Normal 1.5-4.5 [facility] Work Phone: Comment on above: PATIENT NOT FASTINGP ERFORMED BY: [facility] Rsnhwj[address] [facility] [id number] Globulin Calculated mass conc (S) 2.1 g/dL Normal 1.5-4.5 [facility] Work Phone: Glucose mass conc 82 mg/dL Normal 65-99 Compreh ensive Internal Medicine Work Phone: Comment on above: PATIENT NOT FASTINGP ERFORMED BY: [facility] Rabnoh8065 [facility] [id number] Potassium molar conc 4.2 mmol/L Normal 3.5-5.2 Comp rehensive Internal Medicine Work Phone: Comment on above: PATIENT NOT FASTINGP ERFORMED BY: [facility] Igitwf2534 [address] [facility] [id number] Protein mass conc 6.4 g/dL Normal 6.0-8.5 Compreh ensive Internal Medicine Work Phone: Comment on above: PATIENT NOT FASTINGP ERFORMED BY: [facility] Rqneud1863 [address] [facility] [id number] Sodium molar conc 141 mmol/L Normal 134-144 Compreh ensive Internal Medicine Work Phone: Comment on above: PATIENT NOT FASTINGP ERFORMED BY: ANGIE Chan[address] DigeratiDublin [place] [id number] Urea nitrogen mass conc 12 mg/dL Normal 6-24 [facility] Work Phone: Comment on above: PATIENT NOT FASTINGP ERFORMED BY: ANGIE Sternlin6[address] RoadDublin [place] [id number] Urea nitrogen/Creatinine mass ratio 17 mg/mg Normal 9-23 [facility] Work Phone: Comment on above: PATIENT NOT FASTINGP ERFORMED BY: ANGIE Chan6[address] RoadRoot Orangeblin [place] [id number] Microalb/Creat Ratio, Randm UrOrdered By: Retail Presentation Specialist on 11-01-2014 Albumin DL <= 20 mg/L mass conc (U) 5.6 ug/mL Normal 0.0-17.0 [facility] Work Phone: Comment on above: PATIENT NOT FASTINGP ERFORMED BY: ANGIE Sternlin6[address] RoadDublin [place] [id number] Albumin/Creatinine mass ratio (U) 6.5 {mg/g_creat} Normal 0.0-30.0 [facility] Work Phone: Comment on above: PATIENT NOT FASTINGP ERFORMED BY: ANGIE Sternlin6[address] RoadDublin [place] [id number] Creatinine mass conc (U) 86.6 mg/dL Normal 15.0-278.0 [facility] Work Phone: Comment on above: PATIENT NOT FASTINGP ERFORMED BY: ANGIE Sternlin6[address] RoadDublin [place] [id number] Microscopic ExaminationOrder ed By: Retail Presentation Specialist on 11-01-2014 Bacteria LM.HPF #/area (Urine sed) Few Normal [facility] Work Phone: Comment on above: PATIENT NOT FASTINGP ERFORMED BY: ANGIE Sternlin6[address] RoadDublin [place] [id number] Epithelial cells LM.HPF #/area (Urine sed) 0-10 Normal 0 - 10 [facility] Work Phone: Comment on above: PATIENT NOT FASTINGP ERFORMED BY: ANGIE [facility] Kyaimu0754 [address] RoadDublin [place] [id number] Mucus LM Ql (Urine sed) Present Normal [facility] Work Phone: Mucus Ql (Urine sed) Present Normal Comp rehensive Internal Medicine Work Phone: Comment on above: PATIENT NOT FASTINGP ERFORMED BY: ANGIE [facility] Flyiwc8970 [address] RoadDublin [place] [id number] RBC LM.HPF #/area (Urine sed) 3-10 Abnormal 0 - 2 [facility] Work Phone: Comment on above: PATIENT NOT FASTINGP ERFORMED BY: ANGIE [facility] Hclyzw0543 [address] RoadDublin [place] [id number] WBC LM.HPF #/area (Urine sed) 11-30 Abnormal 0 - 5 [facility] Work Phone: Comment on above: PATIENT NOT FASTINGP ERFORMED BY: ANGIE [facility] Oqatsk6548 [address] RoadDublin [place] [id number] Sedimentation Rate-Westergre nOrdered By: Retail Presentation Specialist on 11-01-2014 ESR Velocity (Bld) 2 mm/h Normal 0-40 [facility] Internal Medicine Work Phone: Comment on above: PATIENT NOT FASTINGP ERFORMED BY: ANGIE [facility] Pqbpuf[address] [facility]in [place] [id number] TSHOrdered By: System Manage r on 11-01-2014 Thyrotropin Qn 2.120 {uIU/mL} Normal 0.450-4.50 0 [facility] Work Phone: Comment on above: PATIENT NOT FASTINGP ERFORMED BY: ANGIE [facility] Mfubqg2698 [address] RoadDublin [place] [id number] Urinalysis, CompleteOrdered By: Retail Presentation Specialist on 11-01-2014 Appearance Nom (U) Clear Normal [facility] Internal Medicine Work Phone: Comment on above: PATIENT NOT FASTINGP ERFORMED BY: CB [facility] Usculb1298 [address] RoadDublin [place] [id number] Bilirubin Ql (U) Negative Normal Comprehe nsive Internal Medicine Work Phone: Comment on above: PATIENT NOT FASTINGP ERFORMED BY: CB [facility] Yfsnkg2612 [address] RoadDublin [place] [id number] Color Nom (U) Yellow Normal Comprehensi ve Internal Medicine Work Phone: Comment on above: PATIENT NOT FASTINGP ERFORMED BY: CB [facility] Hbckbp7470 [address] RoadDublin [place] [id number] Glucose Ql (U) Negative Normal Comprehens kena Internal Medicine Work Phone: Comment on above: PATIENT NOT FASTINGP ERFORMED BY: [facility] Ftzbid2654 [address] RoadDublin [place] [id number] Hemoglobin Ql (U) 2+ Abnormal Compreh ensive Internal Medicine Work Phone: Comment on above: PATIENT NOT FASTINGP ERFORMED BY: [facility] Rrlcua6009 [address] RoadDublin [place] [id number] Hemoglobin Test strip Ql (U) 2+ Abnormal [facility] Work Phone: Ketones Ql (U) Negative Normal Comprehens kena Internal Medicine Work Phone: Comment on above: PATIENT NOT FASTINGP ERFORMED BY: [facility] Nfsawt4008 [address] RoadDublin [place] [id number] Leukocyte esterase Test strip Ql (U) 3+ Abnormal [facility] Work Phone: Comment on above: PATIENT NOT FASTINGP ERFORMED BY: CB [facility] Zzghcq9836 [address] RoadDublin [place] [id number] Microscopic observation LM Nom (Urine sed) See below: Normal [facility] Work Phone: Comment on above: Microscopic was ale cated and was performed. PATIENT NOT FASTINGP ERFORMED BY: CB [facility] Eiiycc4070 [address] RoadDublin [place] [id number] Nitrite Ql (U) Negative Normal Comprehens kena Internal Medicine Work Phone: Comment on above: PATIENT NOT FASTINGP ERFORMED BY: CB [facility] Whxvlj3083 [address] RoadDublin [place] [id number] Nitrite Test strip Ql (U) Negative Normal [facility] Work Phone: pH (U) 5.5 [pH] Normal 5.0-7.5 [facility] Work Phone: Comment on above: PATIENT NOT FASTINGP ERFORMED BY: CB [facility] Xopdvf1595 [address] RoadDublin [place] [id number] pH Test strip (U) 5.5 [pH] Normal 5.0-7.5 Compreh ensive Internal Medicine Work Phone: Protein Ql (U) Negative Normal Comprehens kena Internal Medicine Work Phone: Comment on above: PATIENT NOT FASTINGP ERFORMED BY: CB [facility] Dgiapn0715 [address] RoadDublin [place] [id number] Protein Test strip Ql (U) Negative Normal [facility] Work Phone: Specific gravity Relative Density (U) 1.018 1 Normal 1.005-1.03 0 [facility] Work Phone: Comment on above: PATIENT NOT FASTINGP ERFORMED BY: CB [facility] Qverov8173 [address] RoadDublin [place] [id number] Urobilinogen Test strip mass conc (U) 0.2 mg/dL Normal 0.0-1.9 Comprehensiv e Internal Medicine Work Phone: Comment on above: PATIENT NOT FASTINGP ERFORMED BY: CB [facility] Nnzryo7570 [address] RoadDublin [place] [id number] Vitamin D, 25-HydroxyOrdered By: Retail Presentation Specialist on 11-01-2014 25-Hydroxyvitamin D2+25-Hydroxyvitamin D3 mass conc 33.5 ng/mL Normal 30.0-100.0 [facility] Work Phone: Comment on above: Vitamin D deficiency has been defined by the [place] of[place]icine and an Endocrine Society practice guideline as alevel of serum 25-OH vitamin D less than 20 ng/mL (1,2).The Endocrine Society went on to further define vitamin Dinsufficiency as a level between 21 and 29 ng/mL (2).1. IOM ([place] of [employer]). 2010. Dietary reference intakes for calcium and D. [place]: The National Academies Press.2. Martina MF, Letty HARO, Alec PATINO, et al. Evaluation, treatment, and prevention of vitamin D deficiency: an Endocrine Society clinical practice guideline. JCEM. 2010; 96(7):1911-30. PATIENT NOT FASTINGP ERFORMED BY: XL [employer] Wozlvv5258 [facility] [id number] CBC W/AUTO DIFF WBC ([id number])O rdered By: Retail Presentation Specialist on 01-04-2014 Basophils (Bld) [#/Vol] 0.0 {x10E3/uL} Normal 0.0-0.2 [facility] Work Phone: Comment on above: PATIENT NOT FASTINGP ERFORMED BY: XL Video Surface [employer] [facility] [id number] Information: [id number] Basophils (Bld) [#/Vol] 0.0 10*3/uL Normal 0.0-0.2 [facility]; [facility] Work Phone: Basophils Auto #/vol (Bld) 0.0 {x10E3/uL} Normal 0.0-0.2 [facility] Work Phone: Basophils/100 WBC (Bld) 0 % Normal 0-3 [facility] Work Phone: Comment on above: PATIENT NOT FASTINGP ERFORMED BY: XL VideoChilton Memorial HospitalZmeefr1226 [facility] [id number] Information: [id number] Basophils/100 WBC Auto (Bld) 0 % Normal 0-3 [facility] Work Phone: Eosinophils (Bld) [#/Vol] 0.2 {x10E3/uL} Normal 0.0-0.4 [facility] Work Phone: Comment on above: PATIENT NOT FASTINGP ERFORMED BY: LabUniversity [facility] Health6370 [facility] [id number] Information: [id number] Eosinophils (Bld) [#/Vol] 0.2 10*3/uL Normal 0.0-0.4 [facility]; [facility] Work Phone: Eosinophils Auto #/vol (Bld) 0.2 {x10E3/uL} Normal 0.0-0.4 [facility] Work Phone: Eosinophils/100 WBC (Bld) 3 % Normal 0-5 [facility] Work Phone: Comment on above: PATIENT NOT FASTINGP ERFORMED BY: ANGIE [place] 3686170 [facility] [id number] Information: [id number] Eosinophils/100 WBC Auto (Bld) 3 % Normal 0-5 [facility] Work Phone: Erythrocyte distribution width (RBC) [Ratio] 13.4 % Normal 12.3-15.4 [facility] Work Phone: Comment on above: PATIENT NOT FASTINGP ERFORMED BY: ANGIE [facility]6370 [facility] [id number] Information: [id number] Erythrocyte distribution width Auto Ratio (RBC) 13.4 % Normal 12.3-15.4 [facility] Work Phone: Hematocrit (Bld) [Volume fraction] 39.0 % Normal 34.0-46.6 [facility] Work Phone: Comment on above: PATIENT NOT FASTINGP ERFORMED BY: ANGIE ClerkyUniversity [facility] Health6[facility] [id number] Information: [id number] Hematocrit Auto Volume Fraction (Bld) 39.0 % Normal 34.0-46.6 [facility] Work Phone: Hemoglobin mass conc (Bld) 13.0 g/dL Normal 11.1-15.9 [facility] Work Phone: Comment on above: PATIENT NOT FASTINGP ERFORMED BY: [facility] [facility] [id number] Information: [id number] Immature granulocytes #/vol (Bld) 0.0 {x10E3/uL} Normal 0.0-0.1 [facility] Work Phone: Comment on above: PATIENT NOT FASTINGP ERFORMED BY: [place] [id number] [facility] [id number] Information: [id number] Immature granulocytes (Bld) [#/Vol] 0.0 10*3/uL Normal 0.0-0.1 [facility]; [facility] Work Phone: Immature granulocytes/100 WBC (Bld) 0 % Normal 0-2 [facility] Work Phone: Comment on above: PATIENT NOT FASTINGP ERFORMED BY: [address] [id number] Information: [id number] Lymphocytes (Bld) [#/Vol] 2.9 {x10E3/uL} Normal 0.7-3.1 [facility] Work Phone: Comment on above: PATIENT NOT FASTINGP ERFORMED BY: [place] [id number] [facility] [id number] Information: [id number] Lymphocytes (Bld) [#/Vol] 2.9 10*3/uL Normal 0.7-3.1 [facility]; [facility] Work Phone: Lymphocytes Auto #/vol (Bld) 2.9 {x10E3/uL} Normal 0.7-3.1 [facility] Work Phone: Lymphocytes/100 WBC (Bld) 33 % Normal 14-46 [facility] Work Phone: Comment on above: PATIENT NOT FASTINGP ERFORMED BY: [place] [id number] [facility] [id number] Information: [id number] Lymphocytes/100 WBC Auto (Bld) 33 % Normal 14-46 [facility] Work Phone: MCH (RBC) [Entitic mass] 29.8 pg Normal 26.6-33.0 [facility] Internal Medicine Work Phone: Comment on above: PATIENT NOT FASTINGP ERFORMED BY: ANGIE [address] [id number] Information: [id number] MCH Auto Entitic mass (RBC) 29.8 pg Normal 26.6-33.0 [facility] Internal Medicine Work Phone: MCHC (RBC) [Mass/Vol] 33.3 g/dL Normal 31.5-35.7 [facility] Internal Medicine Work Phone: Comment on above: PATIENT NOT FASTINGP ERFORMED BY: ANGIE [address] [id number] Information: [id number] MCHC Auto mass conc (RBC) 33.3 g/dL Normal 31.5-35.7 [facility] Work Phone: MCV (RBC) [Entitic vol] 89 fL Normal 79-97 [facility] Work Phone: Comment on above: PATIENT NOT FASTINGP ERFORMED BY: ANGIE [address] [id number] Information: [id number] MCV Auto Entitic volume (RBC) 89 fL Normal 79-97 [facility] Work Phone: Monocytes (Bld) [#/Vol] 0.6 {x10E3/uL} Normal 0.1-0.9 [facility] Medicine Work Phone: Comment on above: PATIENT NOT FASTINGP ERFORMED BY: ANGIE [address] [id number] Information: [id number] Monocytes (Bld) [#/Vol] 0.6 10*3/uL Normal 0.1-0.9 [facility]; [facility] Work Phone: Monocytes Auto #/vol (Bld) 0.6 {x10E3/uL} Normal 0.1-0.9 [facility] Work Phone: Monocytes/100 WBC (Bld) 7 % Normal 4-12 [facility] Work Phone: Comment on above: PATIENT NOT FASTINGP ERFORMED BY: ANGIE Chan6370 [facility] [id number] Information: [id number] Monocytes/100 WBC Auto (Bld) 7 % Normal 4-12 [facility] Work Phone: Neutrophils (Bld) [#/Vol] 5.0 {x10E3/uL} Normal 1.4-7.0 [facility] Work Phone: Comment on above: PATIENT NOT FASTINGP ERFORMED BY: ANGIE Sternlin6[address] [facility] [id number] Information: [id number] Neutrophils (Bld) [#/Vol] 5.0 10*3/uL Normal 1.4-7.0 [facility]; [facility] Work Phone: Neutrophils Auto #/vol (Bld) 5.0 {x10E3/uL} Normal 1.4-7.0 [facility] Work Phone: Neutrophils/100 WBC (Bld) 57 % Normal 40-74 [facility] Work Phone: Comment on above: PATIENT NOT FASTINGP ERFORMED BY: ANGIE Sternlin6[address] [facility] [id number] Information: [id number] Neutrophils/100 WBC Auto (Bld) 57 % Normal 40-74 [facility] Work Phone: Platelets (Bld) [#/Vol] 247 {x10E3/uL} Normal 150-379 [facility] Work Phone: Comment on above: PATIENT NOT FASTINGP ERFORMED BY: ANGIE [facility] Qnkaam6311 [facility] [id number] Information: [id number] Platelets (Bld) [#/Vol] 247 10*3/uL Normal 150-379 [facility]; [facility] Work Phone: Platelets Auto #/vol (Bld) 247 {x10E3/uL} Normal 150-379 [facility] Work Phone: RBC (Bld) [#/Vol] 4.36 {x10E6/uL} Normal 3.77-5.28 [facility] Internal Medicine Work Phone: Comment on above: PATIENT NOT FASTINGP ERFORMED BY: [employer] Vshqvn7889 [facility] [id number] Information: [id number] RBC (Bld) [#/Vol] 4.36 10*6/uL Normal 3.77-5.28 [facility]; [facility] Work Phone: RBC Auto #/vol (Bld) 4.36 {x10E6/uL} Normal 3.77-5.28 [facility] Work Phone: WBC (Bld) [#/Vol] 8.8 {x10E3/uL} Normal 3.4-10.8 [facility] Internal Medicine Work Phone: Comment on above: PATIENT NOT FASTINGP ERFORMED BY: [facility] Dkxxob7783 [facility] [id number] Information: [id number] WBC (Bld) [#/Vol] 8.8 10*3/uL Normal 3.4-10.8 Compre [facility] Internal Medicine; [facility] Work Phone: WBC Auto #/vol (Bld) 8.8 {x10E3/uL} Normal 3.4-10.8 [facility] Work Phone: LIPID PANEL ([id number])Ordered B y: Retail Presentation Specialist on 01-04-2014 Cholesterol in HDL mass conc 51 mg/dL Normal [facility] Work Phone: Comment on above: According to ATP-III Guidelines, HDL-C >59 mg/dL is considered anegative risk factor for CHD. PATIENT NOT FASTINGP ERFORMED BY: ANGIE LabCojinny Jekzqe7554 [address]low RoadDublin [place] [id number] Cholesterol in LDL mass conc 104 mg/dL Abnormal 0-99 [facility] Work Phone: Comment on above: PATIENT NOT FASTINGP ERFORMED BY: ANGIE LabCojinny SternBfwbig2251 [address]low RoadDublin [place] [id number] Cholesterol in LDL/Cholesterol in HDL mass ratio 2.0 {ratio_units} Normal 0.0-3.2 [facility] Work Phone: Comment on above: PATIENT NOT FASTINGP ERFORMED BY: ANGIE LabCojinny SternFekclz5427 [address]low RoadDublin [place] [id number] Cholesterol in VLDL mass conc 42 mg/dL Abnormal 5-40 [facility] Work Phone: Comment on above: PATIENT NOT FASTINGP ERFORMED BY: ANGIE Sternlin[address] [facility] [place] [id number] Cholesterol mass conc 197 mg/dL Normal 100-199 [facility] prehensive Internal Medicine Work Phone: Comment on above: PATIENT NOT FASTINGP ERFORMED BY: ANGIE Sternlin[address] RoadNovant Healthin [place] [id number] Triglyceride mass conc 208 mg/dL Abnormal 0-149 [facility] Work Phone: Comment on above: PATIENT NOT FASTINGP ERFORMED BY: ANGIE Sternlin[address] [facility] [place] [id number] METABOLIC PANEL, COMPREHENSI VE ([id number])Ordered By: Retail Presentation Specialist on 01-04-2014 Albumin mass conc 4.2 g/dL Normal 3.5-5.5 Compreh ensive Internal Medicine Work Phone: Comment on above: PATIENT NOT FASTINGP ERFORMED BY: ANGIE LabAsher SternAadjtm4086 Barlow RoadDublin [place] [id number] Albumin/Globulin mass ratio 2.0 {ratio} Normal 1.1-2.5 [facility] Work Phone: Comment on above: PATIENT NOT FASTINGP ERFORMED BY: ANGIE Frederick Oyqinn2994 [facility] [id number] ALP [Catalytic activity/Vol] 64 U/L Normal 39-117 [facility]; [facility] Internal Medicine Work Phone: ALP enzyme act/vol 64 [iU]/L Normal 39-117 [facility] Internal Medicine Work Phone: Comment on above: PATIENT NOT FASTINGP ERFORMED BY: ANGIE Andrzejjinny SternUamlpx2608 [facility] [id number] ALT [Catalytic activity/Vol] 10 U/L Normal 0-32 [facility]; [facility] Internal Medicine Work Phone: ALT enzyme act/vol 10 [iU]/L Normal 0-32 [facility] Internal Medicine Work Phone: Comment on above: PATIENT NOT FASTINGP ERFORMED BY: ANGIE Sternlin6[address] [facility] [id number] AST [Catalytic activity/Vol] 12 U/L Normal 0-40 [facility]; [facility] Internal Medicine Work Phone: AST enzyme act/vol 12 [iU]/L Normal 0-40 [facility] Internal Medicine Work Phone: Comment on above: PATIENT NOT FASTINGP ERFORMED BY: ANGIE Sternlin6370 [facility] [id number] Bilirubin mass conc 0.2 mg/dL Normal 0.0-1.2 Compr [facility] Internal Medicine Work Phone: Comment on above: PATIENT NOT FASTINGP ERFORMED BY: ANGIE SeanAsher SternOkinan1195 [facility] [id number] Calcium mass conc 9.5 mg/dL Normal 8.7-10.2 Compreh [facility] Work Phone: Comment on above: PATIENT NOT FASTINGP ERFORMED BY: ANGIE SeanAsher SternUcppeo4198 [facility] [id number] Chloride molar conc 104 mmol/L Normal 97-108 Compr ensive Internal Medicine Work Phone: Comment on above: PATIENT NOT FASTINGP ERFORMED BY: ANGIE Sternlin6[address] [facility] [id number] CO2 molar conc 22 mmol/L Normal 18-29 Comprehens kena Internal Medicine Work Phone: Comment on above: PATIENT NOT FASTINGP ERFORMED BY: ANGIE Sternlin6[address] [facility] [id number] Creatinine mass conc 0.86 mg/dL Normal 0.57-1.00 Comp rehensive Internal Medicine Work Phone: Comment on above: PATIENT NOT FASTINGP ERFORMED BY: ANGIE [facility]Kind[facility] Gxnvcu2768 [facility] [id number] GFR/1.73 sq M predicted among blacks CKD-EPI vol rate/area (S/P/Bld) 91 mL/min/1.73 Normal Comprehensiv e Internal Medicine Work Phone: Comment on above: PATIENT NOT FASTINGP ERFORMED BY: [facility] Ofmsfr8400 [facility] [id number] GFR/1.73 sq M predicted among non-blacks CKD-EPI vol rate/area (S/P/Bld) 79 mL/min/1.73 Normal [facility] Work Phone: Comment on above: PATIENT NOT FASTINGP ERFORMED BY: ANGIE Donnelly Boonak8403 [facility] [id number] Globulin (S) [Mass/Vol] 2.1 g/dL Normal 1.5-4.5 [facility] Work Phone: Comment on above: PATIENT NOT FASTINGP ERFORMED BY: [facility]University [facility]6370 [facility] [id number] Globulin Calculated mass conc (S) 2.1 g/dL Normal 1.5-4.5 [facility] Work Phone: Glucose mass conc 94 mg/dL Normal 65-99 Compreh ensive Internal Medicine Work Phone: Comment on above: PATIENT NOT FASTINGP ERFORMED BY: LabUniversity [facility]6370 [facility] [id number] Potassium molar conc 4.7 mmol/L Normal 3.5-5.2 Comp rehensive Internal Medicine Work Phone: Comment on above: PATIENT NOT FASTINGP ERFORMED BY: ANGIE Chan[address] D[place]atib[place] [id number] Protein mass conc 6.3 g/dL Normal 6.0-8.5 Compreh ensive Internal Medicine Work Phone: Comment on above: PATIENT NOT FASTINGP ERFORMED BY: ANGIE Sternlin[address] D[place]atib[place] [id number] Sodium molar conc 141 mmol/L Normal 134-144 Compreh ensive Internal Medicine Work Phone: Comment on above: PATIENT NOT FASTINGP ERFORMED BY: ANGIE Frederick Chan[address] DigeratiNovant Healthin [place] [id number] Urea nitrogen mass conc 15 mg/dL Normal 6-24 [facility] Work Phone: Comment on above: PATIENT NOT FASTINGP ERFORMED BY: ANGIE Frederick Chan[address] DigeratiDuke [facility] Hospital [id number] Urea nitrogen/Creatinine mass ratio 17 mg/mg Normal 9-23 [facility] Work Phone: Comment on above: PATIENT NOT FASTINGP ERFORMED BY: ANGIE Frederick Chan6370 [facility] [id number] MICROALBUMINOrdered By: Syst em Radio Interference Investigator on 01-04-2014 Albumin DL <= 20 mg/L mass conc (U) 15.6 ug/mL Normal 0.0-17.0 [facility] Work Phone: Comment on above: PATIENT NOT FASTINGP ERFORMED BY: ANGIE Mack Lzejls8810 [address] RoadDublin [place] [id number] Albumin/Creatinine mass ratio (U) 8.1 {mg/g_creat} Normal 0.0-30.0 [facility] Work Phone: Comment on above: PATIENT NOT FASTINGP ERFORMED BY: ANGIE Frederick Cxtiej[address] [facility] HospitalDublin [place] [id number] Creatinine mass conc (U) 192.2 mg/dL Normal 15.0-278.0 [facility] Work Phone: Comment on above: PATIENT NOT FASTINGP ERFORMED BY: ANGIE [facility] Yrpomm5398 [address]low RoadDublin [place] [id number] Microscopic ExaminationOrder ed By: Retail Presentation Specialist on 01-04-2014 Bacteria LM.HPF #/area (Urine sed) Few Normal [facility] Work Phone: Comment on above: PATIENT NOT FASTINGP ERFORMED BY: ANGIE [facility] Ydaiqe7962 [address] RoadDublin [place] [id number] Crystals LM Nom (Urine sed) Calcium Oxalate Normal [facility] Work Phone: Comment on above: PATIENT NOT FASTINGP ERFORMED BY: ANGIE [facility] Hlioal9604 [address] Roadblin [place] [id number] Epithelial cells LM.HPF #/area (Urine sed) /[HPF] Abnormal 0 - 10 [facility] Work Phone: Comment on above: PATIENT NOT FASTINGP ERFORMED BY: ANGIE [facility] Ojiaot3621 [address] RoadDuin [place] [id number] Mucus LM Ql (Urine sed) Present Normal [facility] Work Phone: Mucus Ql (Urine sed) Present Normal Comp rehensive Internal Medicine Work Phone: Comment on above: PATIENT NOT FASTINGP ERFORMED BY: ANGIE [facility] Kuujsj1703 [address] RoadDublin [place] [id number] RBC LM.HPF #/area (Urine sed) 0-2 Normal 0 - 2 [facility] Work Phone: Comment on above: PATIENT NOT FASTINGP ERFORMED BY: [facility] Wqhdbe4002 [address] RoadDublin [place] [id number] Unidentified crystals LM Ql (Urine sed) Present Abnormal [facility] Work Phone: Comment on above: PATIENT NOT FASTINGP ERFORMED BY: ANGIE [facility] Btsxpz8895 [address] RoadDublin [place] [id number] WBC LM.HPF #/area (Urine sed) 6-10 Abnormal 0 - 5 [facility] Work Phone: Comment on above: PATIENT NOT FASTINGP ERFORMED BY: ANGIE [facility] Ijmete6218 [address] RoadDublin [place] [id number] TSH ([id number])Ordered By: Syste m Radio Interference Investigator on 01-04-2014 Thyrotropin Qn 2.000 {uIU/mL} Normal 0.450-4.50 0 [facility] Work Phone: Comment on above: PATIENT NOT FASTINGP ERFORMED BY: ANGIE [facility] Yfxgvo7569 [address]low RoadDublin [place] [id number] URINALYSIS, W/ MICRO ([id number]) Ordered By: Retail Presentation Specialist on 01-04-2014 Appearance Nom (U) Cloudy Abnormal Compre hensive Internal Medicine Work Phone: Comment on above: PATIENT NOT FASTINGP ERFORMED BY: ANGIE [facility] Lkfuvz4763 [address] RoadDublin [place] [id number] Bilirubin Ql (U) Negative Normal Comprehe nsive Internal Medicine Work Phone: Comment on above: PATIENT NOT FASTINGP ERFORMED BY: ANGIE [facility] Upymnj0165 [address] RoadDublin [place] [id number] Bilirubin Ql (U) Negative Normal Comprehe nsive Internal Medicine; [facility] Work Phone: Color Nom (U) Yellow Normal Comprehensi ve Internal Medicine Work Phone: Comment on above: PATIENT NOT FASTINGP ERFORMED BY: ANGIE [facility] Thggjm4368 [address] RoadDublin [place] [id number] Glucose Ql (U) Negative Normal Comprehens kena Internal Medicine Work Phone: Comment on above: PATIENT NOT FASTINGP ERFORMED BY: CB [facility] Fdfbev1926 [address] RoadDublin [place] [id number] Glucose Ql (U) Negative Normal Comprehens kena [facility]; [facility] Work Phone: Hemoglobin Ql (U) Negative Normal Compreh ensive Internal Medicine Work Phone: Comment on above: PATIENT NOT FASTINGP ERFORMED BY: ANGIE [facility] Igcoju9689 [address] RoadDublin [place] [id number] Hemoglobin Ql (U) Negative Normal Compreh ensive Internal Medicine; [facility] Work Phone: Hemoglobin Test strip Ql (U) Negative Normal [facility] Work Phone: Ketones Ql (U) Negative Normal Comprehens kena Internal Medicine Work Phone: Comment on above: PATIENT NOT FASTINGP ERFORMED BY: ANGIE LabAsher SternTruwoa9[address] RoadDublin [place] [id number] Ketones Ql (U) Negative Normal Comprehens kena [facility]; [facility] Work Phone: Leukocyte esterase Test strip Ql (U) 3+ Abnormal [facility] Work Phone: Comment on above: PATIENT NOT FASTINGP ERFORMED BY: ANGIE LabAsher SternJcxqqe2289 [address] RoadDublin [place] [id number] Microscopic observation LM Nom (Urine sed) See below: Normal [facility] Work Phone: Comment on above: Microscopic was ale cated and was performed. PATIENT NOT FASTINGP ERFORMED BY: ANGIE LabAsher SternXkwroy2450 [address] RoadDublin [place] [id number] Nitrite Ql (U) Negative Normal Comprehens kena Internal Medicine Work Phone: Comment on above: PATIENT NOT FASTINGP ERFORMED BY: ANGIE LabAsher SternNxncds7485 [address] RoadDublin [place] [id number] Nitrite Ql (U) Negative Normal Comprehens kena [facility]; [facility] Work Phone: Nitrite Test strip Ql (U) Negative Normal [facility] Work Phone: pH (U) 6.0 [pH] Normal 5.0-7.5 [facility] Work Phone: Comment on above: PATIENT NOT FASTINGP ERFORMED BY: ANGIE LabNathanrp Rntcgc1380 [address] RoadDublin [place] [id number] pH Test strip (U) 6.0 [pH] Normal 5.0-7.5 Compreh ensive Internal Medicine Work Phone: Protein Ql (U) Trace Normal Comprehens kena Internal Medicine Work Phone: Comment on above: PATIENT NOT FASTINGP ERFORMED BY: [facility] Vudsvl[address] [facility] Centerblin [place] [id number] Protein Test strip Ql (U) Trace Normal [facility] Work Phone: Specific gravity Relative Density (U) 1.027 1 Normal 1.005-1.03 0 [facility] Work Phone: Comment on above: PATIENT NOT FASTINGP ERFORMED BY: [facility] Csdmcq1475 Barlow RoadNovant Healthin [place] [id number] Urobilinogen (U) [Mass/Vol] 0.2 mg/dL Normal 0.0-1.9 [facility]; [facility] Work Phone: Urobilinogen Test strip mass conc (U) 0.2 mg/dL Normal 0.0-1.9 Comprehensiv e Internal Medicine Work Phone: Comment on above: PATIENT NOT FASTINGP ERFORMED BY: [facility] Ipawea7767 [facility] [id number] COLBXOrdered By: Sindhu barker on 10-30-2013 COLBX Normal [facility] Work Phone: Comment on above: Patient: CHRISTINE CURRIE : 1965 (48/F)Acct Num: [id number] Phys: El Cooper Num: [id number] Loc: ENSpecimen: [id number] Received: 10/30/13836Spec Type: COLON BXCOPIES Jamilah Carrington DOhleen[address] [facility] 2WWashburn, [place] [phone] [place], [place] [address]uite 206Cr[place], [place] [phone] ID Blk Pcs Randy Lev + Procedure ComRight colon A 3Left colon B 3PTH PROCEDURES COMPLETEPROCEDURES: SUIV (10/30/13)TISSUESTISSUES:GROSS DESCRIPTIONA - Received is one container labeled with the patient name and designatedright colon. The specimen consists of multiple irregular fragments of lighttan soft tissue that in aggregate measure 1 x 0.5 x 0.1 cm. The specimen istotally submitted in one cassette.B - Received is one container labeled with the patient name and designatedleft colon. The specimen consists of multiple irregular fragments of lighttan soft tissue that in aggregate measure 0.5 x 0.1 x 0.1 cm. The specimen istotally submitted in one cassette. / : 10/30/13 TC:1CPT: [id number]: Colonoscopy with biopsyPRE-OPERATIVE DIAGNOSIS: DiarrheaTISSUE: A. Right colon, rule out microscopic colitis, B. Left colon, rule outmicroscopic colitisMICROSCOPIC DIAGNOSISA. Right colon, biopsy:Fragments of hyperplastic polyp.Additional fragments of colonic mucosa, no pathologic diagnosis.B. Left colon, biopsy:Fragments of colonic mucosa, no pathologic diagnosis.: 10/31/13Signed Jose Payne 10/31/13 BMPOrdered By: System Manage r on 10-25-2013 Calcium mass conc 9.2 mg/dL Normal 8.5-10.1 Compreh ensive Internal Medicine Work Phone: Chloride molar conc 111 mmol/L Abnormal 98-107 Compr ehensive Internal Medicine Work Phone: CO2 molar conc 26.0 mmol/L Normal 21.0-32.0 Comprehen sive Internal Medicine Work Phone: Creatinine mass conc 0.8 mg/dL Normal 0.6-1.0 Comp rehensive Internal Medicine Work Phone: GFR/1.73 sq M predicted among non-blacks MDRD vol rate/area (S/P/Bld) 81 mL/min/{1.73_m2} Normal Comprehe nsive Internal Medicine Work Phone: Glucose mass conc 95 mg/dL Normal 70-110 Compreh ensive Internal Medicine Work Phone: Potassium molar conc 4.9 mmol/L Normal 3.5-5.1 Comp rehensive Internal Medicine Work Phone: Sodium molar conc 141 mmol/L Normal 136-145 Compreh ensive Internal Medicine Work Phone: Urea nitrogen mass conc 19 mg/dL Abnormal 7-18 [facility] Work Phone: BMP 23.8 {RATIO} Abnormal 10-20 Comprehensiv e Internal Medicine Work Phone: BMP 98 mL/min Normal [facility] Work Phone: BMP 4 1 Abnormal 5-15 [facility] Work Phone: CBCDOrdered By: System Melboss er on 10-25-2013 Erythrocyte distribution width (RBC) [Ratio] 13.2 % Normal 11.6-14.6 [facility] Work Phone: Erythrocyte distribution width Auto Ratio (RBC) 13.2 % Normal 11.6-14.6 [facility] Work Phone: Hematocrit (Bld) [Volume fraction] 35.2 % Abnormal 37-47 [facility] Work Phone: Hematocrit Auto Volume Fraction (Bld) 35.2 % Abnormal 37-47 Comprehens kena Internal Medicine Work Phone: Hemoglobin mass conc (Bld) 12.0 g/dL Normal 12.0-15.0 [facility] Work Phone: MCH (RBC) [Entitic mass] 30.5 pg Normal 27.0-32.0 [facility] Work Phone: MCH Auto Entitic mass (RBC) 30.5 pg Normal 27.0-32.0 [facility] Work Phone: MCHC (RBC) [Mass/Vol] 34.1 {g/gl} Normal 32-36 Co mprehensive Internal Medicine Work Phone: MCHC Auto mass conc (RBC) 34.1 {g/gl} Normal 32-36 [facility] Work Phone: MCV (RBC) [Entitic vol] 89.3 fL Normal 81-99 [facility] Work Phone: MCV Auto Entitic volume (RBC) 89.3 fL Normal 81-99 [facility] Work Phone: Platelet mean volume (Bld) [Entitic vol] 11.7 fL Normal 6.2-12.0 [facility] Internal Medicine Work Phone: Platelet mean volume Auto Entitic volume (Bld) 11.7 fL Normal 6.2-12.0 [facility] Internal Medicine Work Phone: Platelets (Bld) [#/Vol] 227 10*3/uL Normal 150-450 [facility] Work Phone: Platelets Auto #/vol (Bld) 227 10*3/uL Normal 150-450 [facility] Internal Medicine Work Phone: RBC (Bld) [#/Vol] 3.94 {M/mm3} Abnormal 4.2-5.4 [facility] Internal [facility] Work Phone: RBC Auto #/vol (Bld) 3.94 {M/mm3} Abnormal 4.2-5.4 [facility] Internal Medicine Work Phone: WBC (Bld) [#/Vol] 10.1 10*3/uL Normal 4.4-11.0 [facility] Internal Medicine Work Phone: WBC Auto #/vol (Bld) 10.1 10*3/uL Normal 4.4-11.0 [facility] Medicine Work Phone: CBCD 28.8 % Normal 19-41 [facility] Internal Medicine Work Phone: CBCD 62.7 % Normal 47-70 [facility] Internal Medicine Work Phone: CBCD 42.4 fL Normal 35.1-43.9 [facility] Internal Medicine Work Phone: CBCD 6.4 {X10_3/uL} Normal 2.0-7.7 [facility] Internal Medicine Work Phone: CBCD 0.100 % Normal 0.0-0.9 [facility] Internal Medicine Work Phone: Comment on above: IG% - Immature Granu locytes (promyelocytes, myelocytes andmetamyelocytes) > 1% indicates that a LEFT SHIFT is Present. CBCD 2.92 {X10_3/ul} Normal 0.83-4.51 [facility] Work Phone: CBCD 0.2 % Normal 0-1 [facility] Work Phone: CBCD 2.2 % Normal 0-5 [facility] Work Phone: CBCD 6.0 % Normal 0-10 [facility] Work Phone: CBC, PLATELETS & AUT DIFF (3 [phone])Ordered By: Retail Presentation Specialist on 07-27-2013 Basophils (Bld) [#/Vol] 0.0 {x10E3/uL} Normal 0.0-0.2 [facility] Work Phone: Comment on above: PATIENT NOT FASTINGP ERFORMED BY: [employer]avel[employer] SemiconductorJames B. Haggin Memorial Hospital [id number] Basophils (Bld) [#/Vol] 0.0 10*3/uL Normal 0.0-0.2 [facility]; [facility] Work Phone: Basophils Auto #/vol (Bld) 0.0 {x10E3/uL} Normal 0.0-0.2 [facility] Work Phone: Basophils/100 WBC (Bld) 0 % Normal 0-3 [facility] Work Phone: Comment on above: PATIENT NOT FASTINGP ERFORMED BY: Flyezee.comAffinity Health Partners [id number] Basophils/100 WBC Auto (Bld) 0 % Normal 0-3 [facility] Work Phone: Eosinophils (Bld) [#/Vol] 0.2 {x10E3/uL} Normal 0.0-0.4 [facility] Work Phone: Comment on above: PATIENT NOT FASTINGP ERFORMED BY: [employer]avelin SemiconductorJames B. Haggin [facility] Hospital [id number] Eosinophils (Bld) [#/Vol] 0.2 10*3/uL Normal 0.0-0.4 [facility]; [facility] Work Phone: Eosinophils Auto #/vol (Bld) 0.2 {x10E3/uL} Normal 0.0-0.4 [facility] Work Phone: Eosinophils/100 WBC (Bld) 2 % Normal 0-5 [facility] Work Phone: Comment on above: PATIENT NOT FASTINGP ERFORMED BY: CB [facility] Xbpwct9151 Barlow RoadNovant Healthin [place] [id number] Eosinophils/100 WBC Auto (Bld) 2 % Normal 0-5 [facility] Work Phone: Erythrocyte distribution width (RBC) [Ratio] 14.5 % Normal 12.3-15.4 [facility] Work Phone: Comment on above: PATIENT NOT FASTINGP ERFORMED BY: [facility] Ntkqpc[address] DigeratiDuke Raleigh Hospital [id number] Erythrocyte distribution width Auto Ratio (RBC) 14.5 % Normal 12.3-15.4 [facility] Work Phone: Hematocrit (Bld) [Volume fraction] 38.9 % Normal 34.0-46.6 [facility] Work Phone: Comment on above: PATIENT NOT FASTINGP ERFORMED BY: LabCoChilton Memorial HospitalZqwgnf8440 [facility] [id number] Hematocrit Auto Volume Fraction (Bld) 38.9 % Normal 34.0-46.6 [facility] Internal Medicine Work Phone: Hemoglobin mass conc (Bld) 12.8 g/dL Normal 11.1-15.9 [facility] Work Phone: Comment on above: PATIENT NOT FASTINGP ERFORMED BY: CB [facility] Xzaltu9632 [address] DigeratiNovant Healthin [place] [id number] Immature granulocytes #/vol (Bld) 0.0 {x10E3/uL} Normal 0.0-0.1 [facility] Work Phone: Comment on above: PATIENT NOT FASTINGP ERFORMED BY: CB [facility] Dvbypb[address] [facility] [place] [id number] Immature granulocytes (Bld) [#/Vol] 0.0 10*3/uL Normal 0.0-0.1 [facility]; [facility] Work Phone: Immature granulocytes/100 WBC (Bld) 0 % Normal 0-2 [facility] Work Phone: Comment on above: PATIENT NOT FASTINGP ERFORMED BY: ANGIE ClerkySaint Alexius HospitalSekyoz4351 [facility] [id number] Lymphocytes (Bld) [#/Vol] 2.8 {x10E3/uL} Normal 0.7-3.1 [facility] Work Phone: Comment on above: PATIENT NOT FASTINGP ERFORMED BY: LabUniversity Of Michigan Health6370 [facility] [id number] Lymphocytes (Bld) [#/Vol] 2.8 10*3/uL Normal 0.7-3.1 [facility]; [facility] Work Phone: Lymphocytes Auto #/vol (Bld) 2.8 {x10E3/uL} Normal 0.7-3.1 [facility] Work Phone: Lymphocytes/100 WBC (Bld) 27 % Normal 14-46 [facility] Work Phone: Comment on above: PATIENT NOT FASTINGP ERFORMED BY: ClerkyUniversity Of Michigan Health6370 [facility] [id number] Lymphocytes/100 WBC Auto (Bld) 27 % Normal 14-46 [facility] Work Phone: MCH (RBC) [Entitic mass] 28.8 pg Normal 26.6-33.0 [facility] Work Phone: Comment on above: PATIENT NOT FASTINGP ERFORMED BY: LabUniversity Of Michigan Health6370 [facility] [id number] MCH Auto Entitic mass (RBC) 28.8 pg Normal 26.6-33.0 [facility] Work Phone: MCHC (RBC) [Mass/Vol] 32.9 g/dL Normal 31.5-35.7 [facility] prehensive Internal Medicine Work Phone: Comment on above: PATIENT NOT FASTINGP ERFORMED BY: ANGIE [facility]6370 [facility] [id number] MCHC Auto mass conc (RBC) 32.9 g/dL Normal 31.5-35.7 [facility] Work Phone: MCV (RBC) [Entitic vol] 87 fL Normal 79-97 [facility] Work Phone: Comment on above: PATIENT NOT FASTINGP ERFORMED BY: ANGIE [facility] Qvxdyo6558 [facility] [id number] MCV Auto Entitic volume (RBC) 87 fL Normal 79-97 [facility] Work Phone: Monocytes (Bld) [#/Vol] 0.6 {x10E3/uL} Normal 0.1-0.9 [facility] Work Phone: Comment on above: PATIENT NOT FASTINGP ERFORMED BY: ANGIE [place] 3686170 [facility] [id number] Monocytes (Bld) [#/Vol] 0.6 10*3/uL Normal 0.1-0.9 [facility]; [facility] Work Phone: Monocytes Auto #/vol (Bld) 0.6 {x10E3/uL} Normal 0.1-0.9 [facility] Work Phone: Monocytes/100 WBC (Bld) 5 % Normal 4-12 [facility] Work Phone: Comment on above: PATIENT NOT FASTINGP ERFORMED BY: [facility]6370 [facility] [id number] Monocytes/100 WBC Auto (Bld) 5 % Normal 4-12 [facility] Work Phone: Neutrophils (Bld) [#/Vol] 6.8 {x10E3/uL} Normal 1.4-7.0 [facility] Work Phone: Comment on above: PATIENT NOT FASTINGP ERFORMED BY: ANGIE [facility]6370 [facility] [id number] Neutrophils (Bld) [#/Vol] 6.8 10*3/uL Normal 1.4-7.0 [facility]; [facility] Work Phone: Neutrophils Auto #/vol (Bld) 6.8 {x10E3/uL} Normal 1.4-7.0 [facility] Work Phone: Neutrophils/100 WBC (Bld) 66 % Normal 40-74 [facility] Work Phone: Comment on above: PATIENT NOT FASTINGP ERFORMED BY: [employer]70 MedialiveAffinity Health Partners [id number] Neutrophils/100 WBC Auto (Bld) 66 % Normal 40-74 [facility] Work Phone: Platelets (Bld) [#/Vol] 272 {x10E3/uL} Normal 155-379 [facility] Work Phone: Comment on above: PATIENT NOT FASTINGP ERFORMED BY: [employer]70 MedialiveAffinity Health Partners [id number] Platelets (Bld) [#/Vol] 272 10*3/uL Normal 155-379 [facility]; [facility] Work Phone: Platelets Auto #/vol (Bld) 272 {x10E3/uL} Normal 155-379 [facility] Internal Medicine Work Phone: RBC (Bld) [#/Vol] 4.45 {x10E6/uL} Normal 3.77-5.28 [facility] Internal Medicine Work Phone: Comment on above: PATIENT NOT FASTINGP ERFORMED BY: [employer]6370 MedialiveAffinity Health Partners [id number] RBC (Bld) [#/Vol] 4.45 10*6/uL Normal 3.77-5.28 [facility] Internal Medicine; [facility] Work Phone: RBC Auto #/vol (Bld) 4.45 {x10E6/uL} Normal 3.77-5.28 [facility] Work Phone: WBC (Bld) [#/Vol] 10.5 {x10E3/uL} Normal 3.4-10.8 [facility] Internal Medicine Work Phone: Comment on above: PATIENT NOT FASTINGP ERFORMED BY: ANGIE [employer]70 MedialiveAffinity Health Partners [id number] WBC (Bld) [#/Vol] 10.5 10*3/uL Normal 3.4-10.8 [facility] Internal Medicine; [facility] Work Phone: WBC Auto #/vol (Bld) 10.5 {x10E3/uL} Normal 3.4-10.8 [facility] Work Phone: MULU TEST, DIRECT ([id number])O rdered By: Retail Presentation Specialist on 07-27-2013 Direct antiglobulin test.poly specific reagent Ql (RBC) Negative Normal [facility] Work Phone: Comment on above: PATIENT NOT FASTINGP ERFORMED BY: ANGIE PersadoAffinity Health Partners [id number] Direct antiglobulin test.poly specific reagent Ql (RBC) Negative Normal [facility]; [facility] Work Phone: FECAL OCCULT- Tubes sent manpreet e (15152)Ordered By: Camryn Abernathy on 07-27-2013 Hemoglobin.gastrointe stinal Ql (St) Negative Normal [facility] Work Phone: Hemoglobin.gastrointe stinal Ql (Stl) Negative Normal [facility]; [facility] Work Phone: FERRITIN ([id number])Ordered By: Retail Presentation Specialist on 07-27-2013 Ferritin mass conc 33 ng/mL Normal 15-150 [facility] Work Phone: Comment on above: PATIENT NOT FASTINGP ERFORMED BY: Flyezee.comAffinity Health Partners [id number] FOLIC ACID SERUM (54390)Orde red By: Retail Presentation Specialist on 07-27-2013 Folate mass conc 11.3 ng/mL Normal Comprehe nsive Internal Medicine Work Phone: Comment on above: A serum folate paradise ntration of less than 3.1 ng/mL isconsidered to represent clinical deficiency. PATIENT NOT FASTINGP ERFORMED BY: ANGIE Chan[address] PostdeckAffinity Health Partners [id number] IRON BINDING CAPACITY (TIBC) (13818)Ordered By: Retail Presentation Specialist on 07-27-2013 Iron binding capacity mass conc 322 ug/dL Normal 250-450 [facility] Work Phone: Comment on above: PATIENT NOT FASTINGP ERFORMED BY: ANGIE Frederick Chan[address] DigeratiDuke Raleigh Hospital [id number] Iron binding capacity.unsaturated mass conc 200 ug/dL Normal 150-375 [facility] Work Phone: Comment on above: PATIENT NOT FASTINGP ERFORMED BY: ANGIE Andrzejjinny Gxuddw7622 [address] DigeratiDuke Raleigh Hospital [id number] Iron mass conc 122 ug/dL Normal 35-155 [facility] Internal Medicine Work Phone: Comment on above: PATIENT NOT FASTINGP ERFORMED BY: ANGIE Andrzejjinny SternOojrcm6259 [address] DigeratiDuke Raleigh Hospital [id number] Iron saturation mass fraction 38 % Normal 15-55 [facility] Work Phone: Comment on above: PATIENT NOT FASTINGP ERFORMED BY: ANGIE Andrzejjinny Cjvqki5559 [facility] [id number] LDH (LD) (LACTATE DEHYDROGEN ASE) (44868)Ordered By: Retail Presentation Specialist on 07-27-2013 LDH [Catalytic activity/Vol] 162 U/L Normal 0-214 [facility]; [facility] Work Phone: LDH enzyme act/vol 162 [iU]/L Normal 0-214 [facility] Internal Medicine Work Phone: Comment on above: PATIENT NOT FASTINGP ERFORMED BY: ANGIE LabAsher SternSsqiuh3556 [facility] [id number] RETICULOCYTE COUNT MANUL (85 044)Ordered By: Retail Presentation Specialist on 07-27-2013 Reticulocytes/100 RBC (Bld) 1.3 % Normal 0.6-2.6 [facility] Work Phone: Comment on above: PATIENT NOT FASTINGP ERFORMED BY: ANGIE [employer] Vdctqi9906 [facility] [id number] Reticulocytes/100 RBC Auto (Bld) 1.3 % Normal 0.6-2.6 [facility] Work Phone: VITAMIN B-12 (CYANOCOBALAMIN ) (30862)Ordered By: Retail Presentation Specialist on 07-27-2013 Cobalamin (Vitamin B12) mass conc 427 pg/mL Normal 211-946 [facility] Work Phone: Comment on above: PATIENT NOT FASTINGP ERFORMED BY: ANGIE LabXcode Life SciencesChilton Memorial HospitalOtxbjp5564 [facility] [id number] CBC WITH MANUAL DIFF (55625) Ordered By: Retail Presentation Specialist on 01-04-2013 Basophils (Bld) [#/Vol] 0.0 {x10E3/uL} Normal 0.0-0.2 [facility] Work Phone: Comment on above: PATIENT WAS FASTINGP ERFORMED BY: ANGIE LabXcode Life SciencesChilton Memorial HospitalOoqbpk6293 [facility] [id number] Information: [id number] Basophils (Bld) [#/Vol] 0.0 10*3/uL Normal 0.0-0.2 [facility]; [facility] Work Phone: Basophils Auto #/vol (Bld) 0.0 {x10E3/uL} Normal 0.0-0.2 [facility] Work Phone: Basophils/100 WBC (Bld) 0 % Normal 0-3 [facility] Work Phone: Comment on above: PATIENT WAS FASTINGP ERFORMED BY: LabCoChilton Memorial HospitalCakkzz4613 [facility] [id number] Information: [id number] Basophils/100 WBC Auto (Bld) 0 % Normal 0-3 [facility] Work Phone: Eosinophils (Bld) [#/Vol] 0.2 {x10E3/uL} Normal 0.0-0.4 [facility] Work Phone: Comment on above: PATIENT WAS FASTINGP ERFORMED BY: [facility]6370 [facility] [id number] Information: [id number] Eosinophils (Bld) [#/Vol] 0.2 10*3/uL Normal 0.0-0.4 [facility]; [facility] Work Phone: Eosinophils Auto #/vol (Bld) 0.2 {x10E3/uL} Normal 0.0-0.4 [facility] Work Phone: Eosinophils/100 WBC (Bld) 3 % Normal 0-7 [facility] Work Phone: Comment on above: PATIENT WAS FASTINGP ERFORMED BY: [place] 0583670 [facility] [id number] Information: [id number] Eosinophils/100 WBC Auto (Bld) 3 % Normal 0-7 [facility] Work Phone: Erythrocyte distribution width (RBC) [Ratio] 13.9 % Normal 12.3-15.4 [facility] Work Phone: Comment on above: PATIENT WAS FASTINGP ERFORMED BY: [facility]6370 [facility] [id number] Information: [id number] Erythrocyte distribution width Auto Ratio (RBC) 13.9 % Normal 12.3-15.4 [facility] Work Phone: Hematocrit (Bld) [Volume fraction] 40.6 % Normal 34.0-46.6 [facility] Internal Medicine Work Phone: Comment on above: PATIENT WAS FASTINGP ERFORMED BY: [facility]6370 [facility] [id number] Information: [id number] Hematocrit Auto Volume Fraction (Bld) 40.6 % Normal 34.0-46.6 [facility] Internal Medicine Work Phone: Hemoglobin mass conc (Bld) 13.4 g/dL Normal 11.1-15.9 [facility] Work Phone: Comment on above: PATIENT WAS FASTINGP ERFORMED BY: [facility]6370 [facility] [id number] Information: [id number] Immature granulocytes #/vol (Bld) 0.0 {x10E3/uL} Normal 0.0-0.1 [facility] Work Phone: Comment on above: PATIENT WAS FASTINGP ERFORMED BY: [address] [id number] Information: [id number] Immature granulocytes (Bld) [#/Vol] 0.0 10*3/uL Normal 0.0-0.1 [facility]; [facility] Work Phone: Immature granulocytes/100 WBC (Bld) 0 % Normal 0-2 [facility] Work Phone: Comment on above: PATIENT WAS FASTINGP ERFORMED BY: [place] 0583670 [facility] [id number] Information: [id number] Lymphocytes (Bld) [#/Vol] 2.8 {x10E3/uL} Normal 0.7-4.5 [facility] Work Phone: Comment on above: PATIENT WAS FASTINGP ERFORMED BY: [facility]6370 [facility] [id number] Information: [id number] Lymphocytes (Bld) [#/Vol] 2.8 10*3/uL Normal 0.7-4.5 [facility]; [facility] Work Phone: Lymphocytes Auto #/vol (Bld) 2.8 {x10E3/uL} Normal 0.7-4.5 [facility] Work Phone: Lymphocytes/100 WBC (Bld) 37 % Normal 14-46 [facility] Work Phone: Comment on above: PATIENT WAS FASTINGP ERFORMED BY: [facility]6370 [facility] [id number] Information: [id number] Lymphocytes/100 WBC Auto (Bld) 37 % Normal 14-46 [facility] Work Phone: MCH (RBC) [Entitic mass] 29.0 pg Normal 26.6-33.0 [facility] Internal Medicine Work Phone: Comment on above: PATIENT WAS FASTINGP ERFORMED BY: ANGIE [place] 3686170 [facility] [id number] Information: [id number] MCH Auto Entitic mass (RBC) 29.0 pg Normal 26.6-33.0 [facility] Internal Medicine Work Phone: MCHC (RBC) [Mass/Vol] 33.0 g/dL Normal 31.5-35.7 [facility] Internal Medicine Work Phone: Comment on above: PATIENT WAS FASTINGP ERFORMED BY: [address] [id number] Information: [id number] MCHC Auto mass conc (RBC) 33.0 g/dL Normal 31.5-35.7 [facility] Internal Medicine Work Phone: MCV (RBC) [Entitic vol] 88 fL Normal 79-97 [facility] Internal Medicine Work Phone: Comment on above: PATIENT WAS FASTINGP ERFORMED BY: ANGIE [facility]6370 [facility] [id number] Information: [id number] MCV Auto Entitic volume (RBC) 88 fL Normal 79-97 [facility] Internal Medicine Work Phone: Monocytes (Bld) [#/Vol] 0.4 {x10E3/uL} Normal 0.1-1.0 [facility] Internal Medicine Work Phone: Comment on above: PATIENT WAS FASTINGP ERFORMED BY: ANGIE [place] 3686170 [facility] [id number] Information: [id number] Monocytes (Bld) [#/Vol] 0.4 10*3/uL Normal 0.1-1.0 [facility]; [facility] Work Phone: Monocytes Auto #/vol (Bld) 0.4 {x10E3/uL} Normal 0.1-1.0 [facility] Work Phone: Monocytes/100 WBC (Bld) 5 % Normal 4-13 [facility] Work Phone: Comment on above: PATIENT WAS FASTINGP ERFORMED BY: ANGIE [facility]6370 [facility] [id number] Information: [id number] Monocytes/100 WBC Auto (Bld) 5 % Normal 4- [facility] Work Phone: Neutrophils (Bld) [#/Vol] 4.3 {x10E3/uL} Normal 1.8-7.8 [facility] Work Phone: Comment on above: PATIENT WAS FASTINGP ERFORMED BY: ANGIE [employer] Ugdyah6382 [facility] [id number] Information: [id number] Neutrophils (Bld) [#/Vol] 4.3 10*3/uL Normal 1.8-7.8 [facility]; [facility] Work Phone: Neutrophils Auto #/vol (Bld) 4.3 {x10E3/uL} Normal 1.8-7.8 [facility] Work Phone: Neutrophils/100 WBC (Bld) 55 % Normal 40-74 [facility] Work Phone: Comment on above: PATIENT WAS FASTINGP ERFORMED BY: XL VideoChilton Memorial HospitalJnuete2685 [facility] [id number] Information: [id number] Neutrophils/100 WBC Auto (Bld) 55 % Normal 40-74 [facility] Work Phone: Platelets (Bld) [#/Vol] 266 {x10E3/uL} Normal 140-415 [facility] Work Phone: Comment on above: PATIENT WAS FASTINGP ERFORMED BY: XL VideoLori [place] 8126070 [facility] [id number] Information: [id number] Platelets (Bld) [#/Vol] 266 10*3/uL Normal 140-415 [facility]; [facility] Work Phone: Platelets Auto #/vol (Bld) 266 {x10E3/uL} Normal 140-415 [facility] Work Phone: RBC (Bld) [#/Vol] 4.62 {x10E6/uL} Normal 3.77-5.28 [facility] Internal Medicine Work Phone: Comment on above: PATIENT WAS FASTINGP ERFORMED BY: [employer] Kskkra6704 [facility] [id number] Information: [id number] RBC (Bld) [#/Vol] 4.62 10*6/uL Normal 3.77-5.28 [facility] Internal Medicine; [facility] Work Phone: RBC Auto #/vol (Bld) 4.62 {x10E6/uL} Normal 3.77-5.28 [facility] Work Phone: WBC (Bld) [#/Vol] 7.7 {x10E3/uL} Normal 4.0-10.5 [facility] Internal Medicine Work Phone: Comment on above: PATIENT WAS FASTINGP ERFORMED BY: [employer] Ojhrms1055 [facility] [id number] Information: [id number] WBC (Bld) [#/Vol] 7.7 10*3/uL Normal 4.0-10.5 [facility] Internal Medicine; [facility] Work Phone: WBC Auto #/vol (Bld) 7.7 {x10E3/uL} Normal 4.0-10.5 [facility] Work Phone: LIPID PANEL ([id number])Ordered B y: Retail Presentation Specialist on 01-04-2013 Cholesterol in HDL mass conc 53 mg/dL Normal [facility] Work Phone: Comment on above: According to ATP-III Guidelines, HDL-C >59 mg/dL is considered anegative risk factor for CHD. PATIENT WAS FASTINGP ERFORMED BY: ANGIE Frederick Chan6370 [facility] [id number] Cholesterol in LDL mass conc 109 mg/dL Abnormal 0-99 [facility] Work Phone: Comment on above: PATIENT WAS FASTINGP ERFORMED BY: ANGIE Frederick Sternlin6370 [facility] [id number] Cholesterol in LDL/Cholesterol in HDL mass ratio 2.1 {ratio_units} Normal 0.0-3.2 [facility] Work Phone: Comment on above: PATIENT WAS FASTINGP ERFORMED BY: ANGIE Frederick Chan6370 [facility] [id number] Cholesterol in VLDL mass conc 37 mg/dL Normal 5-40 [facility] Work Phone: Comment on above: PATIENT WAS FASTINGP ERFORMED BY: ANGIE Andrzejjinny Yrvjgp0647 [facility] [id number] Cholesterol mass conc 199 mg/dL Normal 100-199 [facility] prehensive Internal Medicine Work Phone: Comment on above: PATIENT WAS FASTINGP ERFORMED BY: ANGIE Andrzejjinny Otylvz2653 [facility] [id number] Triglyceride mass conc 183 mg/dL Abnormal 0-149 [facility] Work Phone: Comment on above: PATIENT WAS FASTINGP ERFORMED BY: ANGIE Andrzejjinny Kgybpp6434 [facility] [id number] METABOLIC PANEL, COMPREHENSI VE (49893)Ordered By: Retail Presentation Specialist on 01-04-2013 Albumin mass conc 4.4 g/dL Normal 3.5-5.5 Compreh ensive Internal Medicine Work Phone: Comment on above: PATIENT WAS FASTINGP ERFORMED BY: ANGIE Frederick Sternlin6370 [facility] [id number] Albumin/Globulin mass ratio 1.7 {ratio} Normal 1.1-2.5 [facility] Work Phone: Comment on above: PATIENT WAS FASTINGP ERFORMED BY: Lab[facility] Qqguee6231 Barlow RoadDublin [place] [id number] ALP [Catalytic activity/Vol] 57 U/L Normal 42-107 [facility]; [facility] Internal Medicine Work Phone: ALP enzyme act/vol 57 [iU]/L Normal 42-107 [facility] Internal Medicine Work Phone: Comment on above: PATIENT WAS FASTINGP ERFORMED BY: Lab[facility] Ictjqb3879 Barlow RoadDublin [place] [id number] ALT [Catalytic activity/Vol] 20 U/L Normal 0-32 [facility]; [facility] Internal Medicine Work Phone: ALT enzyme act/vol 20 [iU]/L Normal 0-32 [facility] Internal Medicine Work Phone: Comment on above: PATIENT WAS FASTINGP ERFORMED BY: LabUniversity [facility] Health6370 [address] Roadblin [place] [id number] AST [Catalytic activity/Vol] 17 U/L Normal 0-40 [facility]; [facility] Internal Medicine Work Phone: AST enzyme act/vol 17 [iU]/L Normal 0-40 [facility] Internal Medicine Work Phone: Comment on above: PATIENT WAS FASTINGP ERFORMED BY: LabUniversity [facility] Health6[address] Roadblin [place] [id number] Bilirubin mass conc 0.3 mg/dL Normal 0.0-1.2 [facility] Internal Medicine Work Phone: Comment on above: PATIENT WAS FASTINGP ERFORMED BY: LabCo Vgkmzf4630 [address] RoadDublin [place] [id number] Calcium mass conc 9.1 mg/dL Normal 8.7-10.2 [facility] Internal Medicine Work Phone: Comment on above: PATIENT WAS FASTINGP ERFORMED BY: LabCo Mlbovb26[address] RoadDublin [place] [id number] Chloride molar conc 104 mmol/L Normal 97-108 Compr [facility] Internal Medicine Work Phone: Comment on above: PATIENT WAS FASTINGP ERFORMED BY: LabCo Tsgxcm9[address] Roadblin [place] [id number] CO2 molar conc 23 mmol/L Normal 19-28 Comprehens kena Internal Medicine Work Phone: Comment on above: PATIENT WAS FASTINGP ERFORMED BY: LabCo Vtczif7[address] Roadblin [place] [id number] Creatinine mass conc 0.81 mg/dL Normal 0.57-1.00 Comp rehensive Internal Medicine Work Phone: Comment on above: PATIENT WAS FASTINGP ERFORMED BY: [facility]Co Xkbugc28[address] Roadblin [place] [id number] GFR/1.73 sq M predicted among blacks CKD-EPI vol rate/area (S/P/Bld) 99 mL/min/1.73 Normal Comprehensiv e Internal Medicine Work Phone: Comment on above: PATIENT WAS FASTINGP ERFORMED BY: LabSaint Alexius HospitalIioutn5[address] RoadNovant Healthin [place] [id number] GFR/1.73 sq M predicted among non-blacks CKD-EPI vol rate/area (S/P/Bld) 86 mL/min/1.73 Normal [facility] Work Phone: Comment on above: PATIENT WAS FASTINGP ERFORMED BY: [facility] Ivoncq[address] [facility]in [place] [id number] Globulin (S) [Mass/Vol] 2.6 g/dL Normal 1.5-4.5 [facility] Work Phone: Comment on above: PATIENT WAS FASTINGP ERFORMED BY: LabCo Nvidrm[address] [facility]in [place] [id number] Globulin Calculated mass conc (S) 2.6 g/dL Normal 1.5-4.5 [facility] Work Phone: Glucose mass conc 95 mg/dL Normal 65-99 Compreh ensive Internal Medicine Work Phone: Comment on above: PATIENT WAS FASTINGP ERFORMED BY: LabCo Zlsouc[address] Roadblin [place] [id number] Potassium molar conc 4.5 mmol/L Normal 3.5-5.2 Comp rehensive Internal Medicine Work Phone: Comment on above: PATIENT WAS FASTINGP ERFORMED BY: ANGIE Frederick Chan6370 [facility] [id number] Protein mass conc 7.0 g/dL Normal 6.0-8.5 Compreh ensive Internal Medicine Work Phone: Comment on above: PATIENT WAS FASTINGP ERFORMED BY: ANGIE Andrzejjinny SternUivpvl1595 [facility] [id number] Sodium molar conc 142 mmol/L Normal 134-144 Compreh ensive Internal Medicine Work Phone: Comment on above: PATIENT WAS FASTINGP ERFORMED BY: ANGIE SeanAsher SternPanuhs0769 [facility] [id number] Urea nitrogen mass conc 12 mg/dL Normal 6-24 [facility] Work Phone: Comment on above: PATIENT WAS FASTINGP ERFORMED BY: ANGIE SeanAsher SternRtecue5460 [facility] [id number] Urea nitrogen/Creatinine mass ratio 15 mg/mg Normal 9-23 [facility] Work Phone: Comment on above: PATIENT WAS FASTINGP ERFORMED BY: ANGIE Sternlin6370 [facility] [id number] MICROALBUMINOrdered By: Syst em Radio Interference Investigator on 01-04-2013 Albumin DL <= 20 mg/L mass conc (U) 17.0 ug/mL Normal 0.0-17.0 [facility] Work Phone: Comment on above: PATIENT WAS FASTINGP ERFORMED BY: ANGIE SeanAsher SternGhygqj1200 [facility] [id number] Albumin/Creatinine mass ratio (U) 4.4 {mg/g_creat} Normal 0.0-30.0 [facility] Work Phone: Comment on above: PATIENT WAS FASTINGP ERFORMED BY: ANGIE SeanNathan Iqlfsr3096 [facility] [id number] Creatinine mass conc (U) 383.8 mg/dL Abnormal 15.0-278.0 [facility] Work Phone: Comment on above: PATIENT WAS FASTINGP ERFORMED BY: ANGIE [facility] Awhxcs[address] [facility] [place] [id number] Microscopic ExaminationOrder ed By: Retail Presentation Specialist on 01-04-2013 Bacteria LM.HPF #/area (Urine sed) Few Normal [facility] Work Phone: Comment on above: PATIENT WAS FASTINGP ERFORMED BY: [facility] Xmzrex[address] [facility] [place] [id number] Crystals LM Nom (Urine sed) Amorphous Sediment Normal [facility] Work Phone: Comment on above: Calcium Oxalate PATIENT WAS FASTINGP ERFORMED BY: ANGIE LabKind[facility] Hospital Psnnls8172 [facility] [id number] Epithelial cells LM.HPF #/area (Urine sed) 0-10 Normal 0 - 10 [facility] Work Phone: Comment on above: PATIENT WAS FASTINGP ERFORMED BY: [facility] Moaoqx[address] [facility] [place] [id number] Mucus LM Ql (Urine sed) Present Normal [facility] Work Phone: Mucus Ql (Urine sed) Present Normal Comp rehensive Internal Medicine Work Phone: Comment on above: PATIENT WAS FASTINGP ERFORMED BY: [facility] Ldsdht[address] [facility] [place] [id number] RBC LM.HPF #/area (Urine sed) 0-3 Normal 0 - 3 [facility] Work Phone: Comment on above: PATIENT WAS FASTINGP ERFORMED BY: [facility] Gsxutq[address] [facility] [place] [id number] Unidentified crystals LM Ql (Urine sed) Present Abnormal [facility] Work Phone: Comment on above: PATIENT WAS FASTINGP ERFORMED BY: [facility] Ipikfi87[address] RoadDublin [place] [id number] WBC LM.HPF #/area (Urine sed) 0-5 Normal 0 - 5 [facility] Work Phone: Comment on above: PATIENT WAS FASTINGP ERFORMED BY: ANGIE [facility] Wuzijx8[address] RoadDublin [place] [id number] TSH ([id number])Ordered By: [employer] m Radio Interference Investigator on 01-04-2013 Thyrotropin Qn 1.780 {uIU/mL} Normal 0.450-4.50 0 [facility] Work Phone: Comment on above: PATIENT WAS FASTINGP ERFORMED BY: [facility] Zvrtbb15[address] RoadDublin [place] [id number] URINALYSIS, W/ MICRO ([id number]) Ordered By: Retail Presentation Specialist on 01-04-2013 Appearance Nom (U) Turbid Abnormal Compre hensive Internal Medicine Work Phone: Comment on above: PATIENT WAS FASTINGP ERFORMED BY: ANGIE [facility] Yifnvr5460 [address] RoadDublin [place] [id number] Bilirubin Ql (U) Negative Normal Comprehe nsive Internal Medicine Work Phone: Comment on above: PATIENT WAS FASTINGP ERFORMED BY: ANGIE [facility] Rpgkuf75[address] RoadDublin [place] [id number] Bilirubin Ql (U) Negative Normal Comprehe nsive Internal Medicine; [facility] Work Phone: Color Nom (U) Yellow Normal Comprehensi ve Internal Medicine Work Phone: Comment on above: PATIENT WAS FASTINGP ERFORMED BY: ANGIE [facility] Dudtjz2577 [address] RoadDublin [place] [id number] Glucose Ql (U) Negative Normal Comprehens kena Internal Medicine Work Phone: Comment on above: PATIENT WAS FASTINGP ERFORMED BY: CB [facility] Ojjjbm0138 [address] RoadDublin [place] [id number] Glucose Ql (U) Negative Normal Comprehens kena Internal Medicine; [facility] Work Phone: Hemoglobin Ql (U) Negative Normal Compreh ensive Internal Medicine Work Phone: Comment on above: PATIENT WAS FASTINGP ERFORMED BY: CB [facility] Bmfcfx4457 [address] RoadDublin [place] [id number] Hemoglobin Ql (U) Negative Normal Compreh ensive Internal Medicine; [facility] Work Phone: Hemoglobin Test strip Ql (U) Negative Normal [facility] Work Phone: Ketones Ql (U) Negative Normal Comprehens kena Internal Medicine Work Phone: Comment on above: PATIENT WAS FASTINGP ERFORMED BY: ANGIE Chan[address]Dublin [place] [id number] Ketones Ql (U) Negative Normal Comprehens kena Internal Medicine; [facility] Work Phone: Leukocyte esterase Test strip Ql (U) Trace Abnormal [facility] Work Phone: Comment on above: PATIENT WAS FASTINGP ERFORMED BY: ANGIE Chan[address]bl[address] [place] [id number] Microscopic observation LM Nom (Urine sed) See below: Normal [facility] Work Phone: Comment on above: PATIENT WAS FASTINGP ERFORMED BY: ANGIE Sternlin[address] RoadDuin [place] [id number] Nitrite Ql (U) Negative Normal Comprehens kena Internal Medicine Work Phone: Comment on above: PATIENT WAS FASTINGP ERFORMED BY: ANGIE Chan[address] RoadNovant Healthin [place] [id number] Nitrite Ql (U) Negative Normal Comprehens kena Internal Medicine; [facility] Work Phone: Nitrite Test strip Ql (U) Negative Normal [facility] Work Phone: pH (U) 5.5 [pH] Normal 5.0-7.5 [facility] Work Phone: Comment on above: PATIENT WAS FASTINGP ERFORMED BY: ANGIE LabAsher SternZbcplc6468 Barlow RoadNovant Healthin [place] [id number] pH Test strip (U) 5.5 [pH] Normal 5.0-7.5 Compreh ensive Internal Medicine Work Phone: Protein Ql (U) Negative Normal Comprehens kena Internal Medicine Work Phone: Comment on above: PATIENT WAS FASTINGP ERFORMED BY: XL Video Czjxag6622 BarlowImpactMediaDuke Raleigh Hospital [id number] Protein Ql (U) Negative Normal Comprehens kena Internal Medicine; [facility] Work Phone: Protein Test strip Ql (U) Negative Normal [facility] Work Phone: Specific gravity Relative Density (U) 1.028 1 Normal 1.005-1.03 0 [facility] Work Phone: Comment on above: PATIENT WAS FASTINGP ERFORMED BY: XL VideoChilton Memorial HospitalWfiopk[address] DigeratiDuke Raleigh Hospital [id number] Urobilinogen (U) [Mass/Vol] 0.2 mg/dL Normal 0.0-1.9 [facility]; [facility] Work Phone: Urobilinogen Test strip mass conc (U) 0.2 mg/dL Normal 0.0-1.9 Comprehensiv e Internal Medicine Work Phone: Comment on above: PATIENT WAS FASTINGP ERFORMED BY: XL VideoChilton Memorial HospitalGexzxy55[address] DigeratiDuke Raleigh Hospital [id number] CBC WITH MANUAL DIFF ([id number]) Ordered By: Retail Presentation Specialist on 01-13-2012 Basophils (Bld) [#/Vol] 0.0 {x10E3/uL} Normal 0.0-0.2 [facility] Work Phone: Comment on above: PATIENT WAS FASTINGP ERFORMED BY: XL VideoChilton Memorial HospitalPkaynq24[address] DigeratiDuke Raleigh Hospital [id number] Basophils (Bld) [#/Vol] 0.0 10*3/uL Normal 0.0-0.2 [facility]; [facility] Work Phone: Basophils Auto #/vol (Bld) 0.0 {x10E3/uL} Normal 0.0-0.2 [facility] Work Phone: Basophils/100 WBC (Bld) 0 % Normal 0-3 [facility] Work Phone: Comment on above: PATIENT WAS FASTINGP ERFORMED BY: [facility]6370 [facility] [id number] Basophils/100 WBC Auto (Bld) 0 % Normal 0-3 [facility] Work Phone: Eosinophils (Bld) [#/Vol] 0.4 {x10E3/uL} Normal 0.0-0.4 [facility] Work Phone: Comment on above: PATIENT WAS FASTINGP ERFORMED BY: [place] [id number] [facility] [id number] Eosinophils (Bld) [#/Vol] 0.4 10*3/uL Normal 0.0-0.4 [facility]; [facility] Work Phone: Eosinophils Auto #/vol (Bld) 0.4 {x10E3/uL} Normal 0.0-0.4 [facility] Work Phone: Eosinophils/100 WBC (Bld) 4 % Normal 0-7 [facility] Work Phone: Comment on above: PATIENT WAS FASTINGP ERFORMED BY: [facility]6370 [facility] [id number] Eosinophils/100 WBC Auto (Bld) 4 % Normal 0-7 [facility] Work Phone: Erythrocyte distribution width (RBC) [Ratio] 14.2 % Normal 12.3-15.4 [facility] Work Phone: Comment on above: PATIENT WAS FASTINGP ERFORMED BY: [place] [id number] [facility] [id number] Erythrocyte distribution width Auto Ratio (RBC) 14.2 % Normal 12.3-15.4 [facility] Work Phone: Hematocrit (Bld) [Volume fraction] 39.1 % Normal 34.0-46.6 [facility] Work Phone: Comment on above: PATIENT WAS FASTINGP ERFORMED BY: [facility]6370 [facility] [id number] Hematocrit Auto Volume Fraction (Bld) 39.1 % Normal 34.0-46.6 Comprehens [facility] Internal Medicine Work Phone: Hemoglobin mass conc (Bld) 12.8 g/dL Normal 11.1-15.9 [facility] Work Phone: Comment on above: PATIENT WAS FASTINGP ERFORMED BY: ANGIE LabCoChilton Memorial HospitalDkuzba0043 [facility] [id number] Immature granulocytes #/vol (Bld) 0.0 {x10E3/uL} Normal 0.0-0.1 [facility] Work Phone: Comment on above: PATIENT WAS FASTINGP ERFORMED BY: LabUniversity [facility] Health6370 [facility] [id number] Immature granulocytes (Bld) [#/Vol] 0.0 10*3/uL Normal 0.0-0.1 [facility]; [facility] Work Phone: Immature granulocytes/100 WBC (Bld) 0 % Normal 0-2 [facility] Work Phone: Comment on above: PATIENT WAS FASTINGP ERFORMED BY: LabUniversity [facility] Health6370 [facility] [id number] Lymphocytes (Bld) [#/Vol] 3.2 {x10E3/uL} Normal 0.7-4.5 [facility] Work Phone: Comment on above: PATIENT WAS FASTINGP ERFORMED BY: LabCoChilton Memorial HospitalVmxzep9252 [facility] [id number] Lymphocytes (Bld) [#/Vol] 3.2 10*3/uL Normal 0.7-4.5 [facility]; [facility] Work Phone: Lymphocytes Auto #/vol (Bld) 3.2 {x10E3/uL} Normal 0.7-4.5 [facility] Work Phone: Lymphocytes/100 WBC (Bld) 32 % Normal 14-46 [facility] Work Phone: Comment on above: PATIENT WAS FASTINGP ERFORMED BY: LabUniversity [facility] Health[address] [facility] [id number] Lymphocytes/100 WBC Auto (Bld) 32 % Normal 14-46 [facility] Work Phone: MCH (RBC) [Entitic mass] 28.4 pg Normal 26.6-33.0 [facility] Internal Medicine Work Phone: Comment on above: PATIENT WAS FASTINGP ERFORMED BY: XL Video Ybelym3982 [facility] [id number] MCH Auto Entitic mass (RBC) 28.4 pg Normal 26.6-33.0 [facility] Internal Medicine Work Phone: MCHC (RBC) [Mass/Vol] 32.7 g/dL Normal 31.5-35.7 [facility] Internal Medicine Work Phone: Comment on above: PATIENT WAS FASTINGP ERFORMED BY: ANGIE XL VideoCrownpoint Healthcare FacilityXuwbqu8323 [facility] [id number] MCHC Auto mass conc (RBC) 32.7 g/dL Normal 31.5-35.7 [facility] Internal Medicine Work Phone: MCV (RBC) [Entitic vol] 87 fL Normal 79-97 [facility] Internal Medicine Work Phone: Comment on above: PATIENT WAS FASTINGP ERFORMED BY: XL Video Vockei0675 [facility] [id number] MCV Auto Entitic volume (RBC) 87 fL Normal 79-97 [facility] Internal Medicine Work Phone: Monocytes (Bld) [#/Vol] 0.7 {x10E3/uL} Normal 0.1-1.0 [facility] Internal Medicine Work Phone: Comment on above: PATIENT WAS FASTINGP ERFORMED BY: XL Video Bsqkfw9649 [facility] [id number] Monocytes (Bld) [#/Vol] 0.7 10*3/uL Normal 0.1-1.0 [facility] Internal Medicine; [facility] Work Phone: Monocytes Auto #/vol (Bld) 0.7 {x10E3/uL} Normal 0.1-1.0 [facility] Internal Medicine Work Phone: Monocytes/100 WBC (Bld) 7 % Normal 4-13 [facility] Work Phone: Comment on above: PATIENT WAS FASTINGP ERFORMED BY: ANGIE [facility] Umbkgy2415 [facility] [id number] Monocytes/100 WBC Auto (Bld) 7 % Normal 4-13 [facility] Work Phone: Neutrophils (Bld) [#/Vol] 5.7 {x10E3/uL} Normal 1.8-7.8 [facility] Work Phone: Comment on above: PATIENT WAS FASTINGP ERFORMED BY: ANGIE [facility] CenterNathan Ukjers9163 [facility] [id number] Neutrophils (Bld) [#/Vol] 5.7 10*3/uL Normal 1.8-7.8 [facility]; [facility] Work Phone: Neutrophils Auto #/vol (Bld) 5.7 {x10E3/uL} Normal 1.8-7.8 [facility] Work Phone: Neutrophils/100 WBC (Bld) 57 % Normal 40-74 [facility] Work Phone: Comment on above: PATIENT WAS FASTINGP ERFORMED BY: ANGIE ClerkyAsher SternRqxrxj5344 [facility] [id number] Neutrophils/100 WBC Auto (Bld) 57 % Normal 40-74 [facility] Work Phone: Platelets (Bld) [#/Vol] 279 {x10E3/uL} Normal 140-415 [facility] Work Phone: Comment on above: PATIENT WAS FASTINGP ERFORMED BY: ANGIE [facility]6370 [facility] [id number] Platelets (Bld) [#/Vol] 279 10*3/uL Normal 140-415 [facility]; [facility] Work Phone: Platelets Auto #/vol (Bld) 279 {x10E3/uL} Normal 140-415 [facility] Work Phone: RBC (Bld) [#/Vol] 4.50 {x10E6/uL} Normal 3.77-5.28 [facility] Internal Medicine Work Phone: Comment on above: PATIENT WAS FASTINGP ERFORMED BY: ANGIE Chan6370 [facility] [id number] RBC (Bld) [#/Vol] 4.50 10*6/uL Normal 3.77-5.28 [facility]; [facility] Work Phone: RBC Auto #/vol (Bld) 4.50 {x10E6/uL} Normal 3.77-5.28 [facility] Work Phone: WBC (Bld) [#/Vol] 10.0 {x10E3/uL} Normal 4.0-10.5 [facility] Internal Medicine Work Phone: Comment on above: PATIENT WAS FASTINGP ERFORMED BY: ANGIE Sternlin6370 [facility] [id number] WBC (Bld) [#/Vol] 10.0 10*3/uL Normal 4.0-10.5 [facility] Internal Medicine; [facility] Work Phone: WBC Auto #/vol (Bld) 10.0 {x10E3/uL} Normal 4.0-10.5 [facility] Work Phone: LIPID PANEL ([id number])Ordered B y: Retail Presentation Specialist on 01-13-2012 Cholesterol in HDL mass conc 60 mg/dL Normal [facility] Work Phone: Comment on above: According to ATP-III Guidelines, HDL-C >59 mg/dL is considered anegative risk factor for CHD. PATIENT WAS FASTINGP ERFORMED BY: ANGIE Sternlin6370 [facility] [id number] Cholesterol in LDL mass conc 108 mg/dL Abnormal 0-99 [facility] Work Phone: Comment on above: Effective Janemb r 2011, the reference interval for LDL Cholesterol Calc will be changing to: 0 - 19 years 0 - 109 20 - 24 years 0 - 119 > 24 years 0 - 99 PATIENT WAS FASTINGP ERFORMED BY: ANGIE Mack Spfbfi7265 [address] RoadDublin [place] [id number] Cholesterol in LDL/Cholesterol in HDL mass ratio 1.8 {ratio_units} Normal 0.0-3.2 [facility] Work Phone: Comment on above: PATIENT WAS FASTINGP ERFORMED BY: CB [facility] Tysqlw4621 [address] RoadDublin [place] [id number] Cholesterol in VLDL mass conc 41 mg/dL Abnormal 5-40 [facility] Work Phone: Comment on above: PATIENT WAS FASTINGP ERFORMED BY: CB [facility] Wklqhp5118 [address] RoadDublin [place] [id number] Cholesterol mass conc 209 mg/dL Abnormal 100-199 [facility] prehensive Internal Medicine Work Phone: Comment on above: [facility], the reference interval for Cholesterol, Total will be changing to: 0 - 19 years 100 - 169 20 - 24 years 100 - 189 > 24 years 100 - 199 PATIENT WAS FASTINGP ERFORMED BY: CB [facility] Xotzcs5982 [address] RoadDuin [place] [id number] Triglyceride mass conc 206 mg/dL Abnormal 0-149 [facility] Work Phone: Comment on above: [facility], the reference interval for Triglycerides will be changing to: 0 - 9 years 0 - 74 10 - 19 years 0 - 89 20 - 24 years 0 - 114 > 24 years 0 - 149 PATIENT WAS FASTINGP ERFORMED BY: CB [facility] Oaeqng0607 [address]low RoadNovant Healthin [place] [id number] METABOLIC PANEL, COMPREHENSI VE ([id number])Ordered By: Retail Presentation Specialist on 01-13-2012 Albumin mass conc 4.2 g/dL Normal 3.5-5.5 Compreh ensive Internal Medicine Work Phone: Comment on above: PATIENT WAS FASTINGP ERFORMED BY: CB [facility] Huzevz4940 [address] RoadDublin [place] [id number] Albumin/Globulin mass ratio 1.6 {ratio} Normal 1.1-2.5 [facility] Work Phone: Comment on above: PATIENT WAS FASTINGP ERFORMED BY: ANGIE [facility] Mqmcrt3036 [address] Roadblin [place] [id number] ALP [Catalytic activity/Vol] 57 U/L Normal 25-150 [facility]; [facility] Internal Medicine Work Phone: ALP enzyme act/vol 57 [iU]/L Normal 25-150 [facility] Internal Medicine Work Phone: Comment on above: PATIENT WAS FASTINGP ERFORMED BY: ANGIE [facility] Svkjhs3085 [address] Roadblin [place] [id number] ALT [Catalytic activity/Vol] 20 U/L Normal 0-40 [facility] Internal Medicine; [facility] Internal Medicine Work Phone: ALT enzyme act/vol 20 [iU]/L Normal 0-40 [facility] Internal Medicine Work Phone: Comment on above: PATIENT WAS FASTINGP ERFORMED BY: ANGIE [facility] Wuiabx1064 Barlow RoadD[facility] Hospital [id number] AST [Catalytic activity/Vol] 19 U/L Normal 0-40 [facility] Internal Medicine; [facility] Internal Medicine Work Phone: AST enzyme act/vol 19 [iU]/L Normal 0-40 [facility] Internal Medicine Work Phone: Comment on above: PATIENT WAS FASTINGP ERFORMED BY: ANGIE [facility] Vdgekb[address] [facility] [place] [id number] Bilirubin mass conc 0.3 mg/dL Normal 0.0-1.2 [facility] Internal Medicine Work Phone: Comment on above: PATIENT WAS FASTINGP ERFORMED BY: ANGIE [facility] Fmbbup7136 [address]low RoadNovant Healthin [place] [id number] Calcium mass conc 9.4 mg/dL Normal 8.7-10.2 [facility] Internal Medicine Work Phone: Comment on above: PATIENT WAS FASTINGP ERFORMED BY: ANGIE [facility] Nazgan1048 [address] RoadDublin [place] [id number] Chloride molar conc 101 mmol/L Normal 97-108 [facility] Internal Medicine Work Phone: Comment on above: PATIENT WAS FASTINGP ERFORMED BY: ANGIE [facility] Lhtsxx5478 [address] RoadDublin [place] [id number] CO2 molar conc 22 mmol/L Normal 20-32 Comprehens kena Internal Medicine Work Phone: Comment on above: PATIENT WAS FASTINGP ERFORMED BY: ANGIE [facility] Qhuhpf4394 [address] RoadDublin [place] [id number] Creatinine mass conc 0.72 mg/dL Normal 0.57-1.00 Comp rehensive Internal Medicine Work Phone: Comment on above: PATIENT WAS FASTINGP ERFORMED BY: ANGIE [facility] Nvjzid7123 [address] RoadDublin [place] [id number] GFR/1.73 sq M predicted among blacks CKD-EPI vol rate/area (S/P/Bld) 115 mL/min/1.73 Normal Comprehensiv e Internal Medicine Work Phone: Comment on above: PATIENT WAS FASTINGP ERFORMED BY: ANGIE [facility] Ytgtwt0018 [address] RoadDublin [place] [id number] GFR/1.73 sq M predicted among non-blacks CKD-EPI vol rate/area (S/P/Bld) 99 mL/min/1.73 Normal [facility] Work Phone: Comment on above: PATIENT WAS FASTINGP ERFORMED BY: ANGIE [facility] Nanyay3197 [address] RoadDublin [place] [id number] Globulin (S) [Mass/Vol] 2.7 g/dL Normal 1.5-4.5 [facility] Work Phone: Comment on above: PATIENT WAS FASTINGP ERFORMED BY: CB [facility] Pggjpd4024 [address]blin [place] [id number] Globulin Calculated mass conc (S) 2.7 g/dL Normal 1.5-4.5 [facility] Work Phone: Glucose mass conc 90 mg/dL Normal 65-99 Compreh ensive Internal Medicine Work Phone: Comment on above: PATIENT WAS FASTINGP ERFORMED BY: CB [facility] Clipyg6448 [address] Roadblin [place] [id number] Potassium molar conc 4.8 mmol/L Normal 3.5-5.2 Comp rehensive Internal Medicine Work Phone: Comment on above: PATIENT WAS FASTINGP ERFORMED BY: ANGIE Chan6370 [facility] [id number] Protein mass conc 6.9 g/dL Normal 6.0-8.5 Compreh ensive Internal Medicine Work Phone: Comment on above: PATIENT WAS FASTINGP ERFORMED BY: ANGIE Frederick Sternlin6370 [facility] [id number] Sodium molar conc 137 mmol/L Normal 134-144 Compreh ensive Internal Medicine Work Phone: Comment on above: PATIENT WAS FASTINGP ERFORMED BY: ANGIE Andrzej Tiqhxe8745 [facility] [id number] Urea nitrogen mass conc 15 mg/dL Normal 6-24 [facility] Work Phone: Comment on above: PATIENT WAS FASTINGP ERFORMED BY: ANGIE Andrzej Rzhqpu9967 [facility] [id number] Urea nitrogen/Creatinine mass ratio 21 mg/mg Normal 9-23 [facility] Work Phone: Comment on above: PATIENT WAS FASTINGP ERFORMED BY: ANGIE Andrzej Ihmisx9758 [facility] [id number] MICROALBUMINOrdered By: Syst em Radio Interference Investigator on 01-13-2012 Albumin DL <= 20 mg/L mass conc (U) 5.9 ug/mL Normal 0.0-17.0 [facility] Work Phone: Comment on above: PATIENT WAS FASTINGP ERFORMED BY: [facility]6370 [facility] [id number] Albumin/Creatinine mass ratio (U) 4.6 {mg/g_creat} Normal 0.0-30.0 [facility] Work Phone: Comment on above: PATIENT WAS FASTINGP ERFORMED BY: ANGIE [facility]6370 [facility] [id number] Creatinine mass conc (U) 127.0 mg/dL Normal 15.0-278.0 [facility] Work Phone: Comment on above: PATIENT WAS FASTINGP ERFORMED BY: ANGIE LabCojinny Jlubqz7979 [address] [facility] [place] [id number] Microscopic ExaminationOrder ed By: Retail Presentation Specialist on 01-13-2012 Bacteria LM.HPF #/area (Urine sed) Few Normal [facility] Work Phone: Comment on above: PATIENT WAS FASTINGP ERFORMED BY: ANGIE [facility] Rzhdrn4382 [address] [facility] [id number] Epithelial cells LM.HPF #/area (Urine sed) 0-10 Normal 0 - 10 [facility] Work Phone: Comment on above: PATIENT WAS FASTINGP ERFORMED BY: ANGIE [facility] Rfgrdg9497 [address] [facility] [id number] Mucus LM Ql (Urine sed) Present Normal [facility] Work Phone: Mucus Ql (Urine sed) Present Normal Comp rehensive Internal Medicine Work Phone: Comment on above: PATIENT WAS FASTINGP ERFORMED BY: ANGIE LabCo Gccuxm9354 [address] [facility] [id number] RBC LM.HPF #/area (Urine sed) 0-3 Normal 0 - 3 [facility] Work Phone: Comment on above: PATIENT WAS FASTINGP ERFORMED BY: ANGIE [facility] Xxcmeo2916 [address] [facility] [id number] WBC LM.HPF #/area (Urine sed) 0-5 Normal 0 - 5 [facility] Work Phone: Comment on above: PATIENT WAS FASTINGP ERFORMED BY: [facility] Jvwgic7579 [address] [facility] [place] [id number] TSH ([id number])Ordered By: Jamar silva Radio Interference Investigator on 01-13-2012 Thyrotropin Qn 1.870 {uIU/mL} Normal 0.450-4.50 0 [facility] Work Phone: Comment on above: PATIENT WAS FASTINGP ERFORMED BY: ANGIE [facility] Qambyv4699 [address] [facility] [place] [id number] URINALYSIS, W/ MICRO ([id number]) Ordered By: Retail Presentation Specialist on 01-13-2012 Appearance Nom (U) Clear Normal Compre hensive Internal Medicine Work Phone: Comment on above: PATIENT WAS FASTINGP ERFORMED BY: ANGIE Chan6370 [address] RoadDuin [place] [id number] Bilirubin Ql (U) Negative Normal Comprehe nsive Internal Medicine Work Phone: Comment on above: PATIENT WAS FASTINGP ERFORMED BY: ANGIE Sternlin6370 [address] RoadDuin [place] [id number] Bilirubin Ql (U) Negative Normal Comprehe nsive Internal Medicine; [facility] Work Phone: Color Nom (U) Yellow Normal Comprehensi ve Internal Medicine Work Phone: Comment on above: PATIENT WAS FASTINGP ERFORMED BY: ANGIE Chan6370 [address] [facility] [id number] Glucose Ql (U) Negative Normal Comprehens kena Internal Medicine Work Phone: Comment on above: PATIENT WAS FASTINGP ERFORMED BY: ANGIE Sternlin6[address] RoadNovant Healthin [place] [id number] Glucose Ql (U) Negative Normal Comprehens kena Internal Medicine; [facility] Work Phone: Hemoglobin Ql (U) Negative Normal Compreh ensive Internal Medicine Work Phone: Comment on above: PATIENT WAS FASTINGP ERFORMED BY: ANGIE [facility] Yonrze9182 [address] RoadDuin [place] [id number] Hemoglobin Ql (U) Negative Normal Compreh ensive Internal Medicine; [facility] Work Phone: Hemoglobin Test strip Ql (U) Negative Normal [facility] Work Phone: Ketones Ql (U) Negative Normal Comprehens kena Internal Medicine Work Phone: Comment on above: PATIENT WAS FASTINGP ERFORMED BY: ANGIE LabAsher SternXyioem6430 [address] RoadDuin [place] [id number] Ketones Ql (U) Negative Normal Comprehens kena Internal Medicine; [facility] Work Phone: Leukocyte esterase Test strip Ql (U) Negative Normal [facility] Work Phone: Comment on above: PATIENT WAS FASTINGP ERFORMED BY: ANGIE Sternlin[address] RoadDublin [place] [id number] Leukocyte esterase Test strip Ql (U) Negative Normal [facility]; [facility] Work Phone: Microscopic observation LM Nom (Urine sed) MICRON Normal [facility] Work Phone: Comment on above: Microscopic follows if indicated. PATIENT WAS FASTINGP ERFORMED BY: ANGIE Sternlin[address] RoadDublin [place] [id number] Microscopic observation LM Nom (Urine sed) See below: Normal [facility] Work Phone: Comment on above: PATIENT WAS FASTINGP ERFORMED BY: ANGIE Chan6[address] RoadDublin [place] [id number] Nitrite Ql (U) Negative Normal Comprehens kena Internal Medicine Work Phone: Comment on above: PATIENT WAS FASTINGP ERFORMED BY: ANGIE LabAsher SternLbftpa3045 [address]low RoadDublin [place] [id number] Nitrite Ql (U) Negative Normal Comprehens kena Internal Medicine; [facility] Work Phone: Nitrite Test strip Ql (U) Negative Normal [facility] Work Phone: pH (U) 5.0 [pH] Normal 5.0-7.5 [facility] Work Phone: Comment on above: PATIENT WAS FASTINGP ERFORMED BY: ANGIE LabCojinny SternFehgcd3236 [address]low RoadDublin [place] [id number] pH Test strip (U) 5.0 [pH] Normal 5.0-7.5 Compreh ensive Internal Medicine Work Phone: Protein Ql (U) Negative Normal Comprehens kena Internal Medicine Work Phone: Comment on above: PATIENT WAS FASTINGP ERFORMED BY: ANGIE LabAsher SternHuuuec11[address]Dublin [place] [id number] Protein Ql (U) Negative Normal Comprehens kena Internal Medicine; [facility] Work Phone: Protein Test strip Ql (U) Negative Normal [facility] Work Phone: Specific gravity Relative Density (U) 1.019 1 Normal 1.005-1.03 0 [facility] Work Phone: Comment on above: PATIENT WAS FASTINGP ERFORMED BY: Conyaclin6370 [facility] [id number] Urobilinogen (U) [Mass/Vol] 0.2 mg/dL Normal 0.0-1.9 [facility]; [facility] Work Phone: Urobilinogen Test strip mass conc (U) 0.2 mg/dL Normal 0.0-1.9 Comprehensiv e Internal Medicine Work Phone: Comment on above: PATIENT WAS FASTINGP ERFORMED BY: Garenalin6370 [facility] [id number] CHEST WITH CONTRASTOrdered B y: Retail Presentation Specialist on 02-09-2011 CHEST WITH CONTRAST See Note Normal Compr ehensive Internal Medicine Work Phone: Comment on above: PROCEDURE: CT CHEST WITH CONTRAST REASON FOR EXAM: Female, 45 years old. The patient presents with ahistory of chronic left flank pain. TECHNIQUE: High resolution transaxial imaging was performed followingintravenous administration of 100 ml of Isovue 300 contrast material.Multiplanar coronal and sagittal images were reformatted. COMPARISON: None. FINDINGS:There is minimal intimal AV of the inferior aspect of the left lobe ofthethyroid. The lungs are normal. There is no demonstrated pleural abnormality. Normal heart and pericardium. Normal mediastinum. Normal hilar regions. Normal enhancement of thepulmonary arteries. Normal enhanced thoracic aorta and visualized greatvessels. There are multi-level degenerative changes of the thoracic spine. There is limited visualization of the liver, spleen, pancreas, adrenalglands, and abdominal aorta without a demonstrated abnormality. IMPRESSION:No acute abnormalities seen. Dictated on 02/09/11 1451 by Bebeto ARAMBULA,GabrieleTranscribed on 02/10/11 1036 by ITS IMPORTSign by Juanito Elizabeth MD on 02/10/11 1037 Sign by: Juanito Elizabeth MD PROCEDURE: CT ABDOME N AND PELVIS WITH CONTRAST REASON FOR EXAM: Female, 45 years old. Left flank pain. TECHNIQUE: Transaxial images were obtained from the dome of thediaphragmto the symphysis pubis with oral contrast. 100 ml of Isovue 300 contrastwas administered. COMPARISON: None. FINDINGS:The visualized lung bases are unremarkable. The liver is in the upper limits of normal in size. No focal lesion isseen. Normal gallbladder and extrahepatic biliary system. Normalenhancedspleen. Normal pancreas. Normal bilateral adrenal glands. Normal size of the right kidney. There is no right renal mass. Thereareno right renal calculi. There is no right hydronephrosis. Normalvisualized right ureter. Normal size of the left kidney. There is no left renal mass. There arenoleft renal calculi. There is no left hydronephrosis. Normal visualizedleft ureter. There is a small hiatal hernia. Normal small intestine. There arediverticula in the sigmoid colon, but there is no evidence ofdiverticulitis. The appendix is visualized and appears normal. There is no demonstrated peritoneal fluid. Normal abdominal aorta. Normal inferior vena cava. Normalretroperitoneum. Normal urinary bladder. There is no pelvic mass lesion orlymphadenopathy.There is no pelvic fluid. There is a 2-cm left ovarian/adnexal cyst. Normal abdominal wall. There are mild degenerative changes of thevisualized lumbar spine. IMPRESSION:Diverticulosis of the sigmoid colon without evidence of diverticulitis.No demonstrated acute changes.Small hiatal hernia. Dictated on 02/09/11 1451 by NILSON CHENG MDTranscribed on 02/10/11 2318 by ITS IMPORTSign by NILSON CHENG MD on 02/10/11 2318 Sign by: NILSON CHENG MD Urinalysis, Office ([id number])Or dered By: Radha Garcia on 02-02-2011 Bilirubin Ql (U) Negative Normal Comprehe nsive Internal Medicine Work Phone: Bilirubin Ql (U) Negative Normal Comprehe nsive Internal Medicine; [facility] Work Phone: Glucose Test strip (U) [Mass/Vol] Negative Normal [facility]; [facility] Work Phone: Glucose Test strip mass conc (U) Negative Normal [facility] Work Phone: Hemoglobin Ql (U) Non Hemolyzed Trace Normal [facility] Work Phone: Hemoglobin Test strip Ql (U) Non Hemolyzed Trace Normal Comprehensiv e Internal Medicine Work Phone: Ketones Ql (U) Negative Normal Comprehens kena Internal Medicine Work Phone: Ketones Ql (U) Negative Normal Comprehens kena Internal Medicine; [facility] Work Phone: Leukocyte esterase Test strip Ql (U) Negative Normal [facility] Work Phone: Leukocyte esterase Test strip Ql (U) Negative Normal [facility]; [facility] Work Phone: Nitrite Ql (U) Negative Normal Comprehens kena Internal Medicine Work Phone: Nitrite Ql (U) Negative Normal Comprehens kena [facility] Medicine; [facility] Work Phone: Nitrite Test strip Ql (U) Negative Normal [facility] Work Phone: pH (U) 6.0 [pH] Normal [facility] Work Phone: pH Test strip (U) 6.0 [pH] Normal Compreh ensive Internal Medicine Work Phone: Protein Ql (U) Negative Normal Comprehens kena Internal Medicine Work Phone: Protein Ql (U) Negative Normal Comprehens kena [facility]; [facility] Work Phone: Protein Test strip Ql (U) Negative Normal [facility] Work Phone: Specific gravity Relative Density (U) 1.020 1 Normal Comprehensi ve Internal Medicine Work Phone: Urobilinogen mass/time (24H U) Normal Normal [facility] Work Phone: ABDOMEN WITHOUT CONTRASTOrde red By: Retail Presentation Specialist on 01-25-2011 ABDOMEN WITHOUT CONTRAST See Note Normal [facility] Work Phone: Comment on above: PROCEDURE: MR CHOLAN GIOPANCREATOGRAPHY (MRCP) REASON FOR EXAM: Female, 45 years old. Abdominal pain. TECHNIQUE: Standard MRCP technique was utilized. COMPARISON: 01/12/2011 ultrasound FINDINGS:Gall Bladder:Normal with no distention or demonstrated fixed intraluminal fillingdefect. Cystic duct:Normal with no demonstrated fixed filling defect. Intrahepatic ducts:Normal visualized intrahepatic ducts with no demonstrated fixed fillingdefect, dilation or stricture. Common hepatic duct:Normal with no demonstrated fixed filling defect, dilation or stricture. Common bile duct:Normal with no demonstrated fixed filling defect, dilation or stricture. Pancreatic duct:Normal with no demonstrated fixed filling defect, dilation or stricture. IMPRESSION:Normal MR Cholangiopancreatography (MRCP). Dictated on 01/25/11 1419 by Angus ARAMBULA,NadieTranscribed on 01/28/11 0956 by ITS IMPORTSign by Zoya Greco MD on 01/28/11 0957 Sign by: Zoya Greco MD GALLBLADDEROrdered By: Nerium Biotechnologyirma Babytree Radio Interference Investigator on 01-12-2011 GALLBLADDER See Note Normal [facility] Work Phone: Comment on above: PROCEDURE: ABDOMINAL ULTRASOUND - RIGHT UPPER QUADRANT REASON FOR VISIT: Female, 45 years old. Abdominal pain. TECHNIQUE: Ultrasound evaluation of the right upper quadrant wasperformedwith real-time ultrasonography and static grayscale imaging. TECHNICAL QUALITY: Adequate. COMPARISON: None. FINDINGS: Liver: Normal size of the liver. The liver measures 15.8 cm. There isnormal echogenicity of the liver. There is no demonstrated mass lesion.There is subtle suggestion of possible mild intra-hepatic bile ductdilatation seen in the right lobe. Gallbladder: Normal distended gallbladder. The gallbladder wall measures1.6 mm. There are no demonstrated gallstones. There is a negativesonographic Graff's sign. There is no pericholecystic fluid. Common Bile Duct (C.B.D.): Normal size C.B.D. The common bile ductmeasures3.7 mm. Pancreas: The tail of pancreas is not well visualized but the head, neckand body are normal. Right Kidney: Normal size of the right kidney. The right kidney beiokbub22.1 cm. Normal renal cortex. The renal cortex measures 1.3 cm. There isnodemonstrated renal mass or cyst. There are no demonstrated renal calculi.There is no hydronephrosis. Aorta: Normal. I.V.C.: The IVC is patent. There is no ascites. IMPRESSION:Question of mild dilatation of the intrahepatic bile ducts of the rightlobe of the liver. Otherwise normal study. Dictated on 01/12/11 0954 by ERICKA MELGAR DOTranscribed on 01/13/1146 by ITS IMPORTSign by ERICKA MELGAR DO on 01/13/11746 Sign by: ERICKA MELGAR DO OCCULT BLD,iFOBOrdered By: Kristina mckenna Radio Interference Investigator on 01-08-2011 OCCULT BLD,iFOB See Note Normal Comprehen [facility] Internal Medicine Work Phone: Comment on above: OCCULT BLOOD Negativ e SHIGA TOXIN 1 AND SH IGA TOXIN 2 NOT DETECTED No Salmonella, Shige lla, Yersinia or Campylobacter isolated.No significant amount of Staphylococcus aureusor yeast-like organisms isolated. OVA AND PARASITES EX AM, ROUTINE These results were obtained using wet preparation(s) and trichrome stained smear. This test does not include testing for Crytosporidium parvum, Cyclospora, or Microsporidia. TESTING PERFORMED AT [facility]. ORIGINAL REPORT ON FILE IN LAB CONTAINS ADDITIONAL TEST SITE INFORMATION. OVA/ PARASITES EXAM NO OVA, CYSTS, OR PARASITES FOUND. FECAL WBCs NONE SEEN C. DIFF ANTIGENS NEG ATIVE Amylase ([id number])Ordered By: S ystem Radio Interference Investigator on 01-05-2011 Amylase enzyme act/vol 68 U/L Normal 31-124 [facility] Work Phone: Comment on above: PATIENT NOT FASTINGP ERFORMED BY: XL VideoChilton Memorial HospitalDpcdff8338 [facility] [id number] CBC, Platelets & Auto Diff ( [id number])Ordered By: Retail Presentation Specialist on 01-05-2011 Basophils (Bld) [#/Vol] 0.0 {x10E3/uL} Normal 0.0-0.2 [facility] Work Phone: Comment on above: PATIENT NOT FASTINGP ERFORMED BY: XL [employer] [facility] [id number]; appt 02/02/11 Basophils (Bld) [#/Vol] 0.0 10*3/uL Normal 0.0-0.2 [facility]; [facility] Work Phone: Basophils Auto #/vol (Bld) 0.0 {x10E3/uL} Normal 0.0-0.2 [facility] Work Phone: Basophils/100 WBC (Bld) 0 % Normal 0-3 [facility] Work Phone: Comment on above: PATIENT NOT FASTINGP ERFORMED BY: XL VideoChilton Memorial HospitalLtfptp1001 [facility] [id number]; appt 02/02/11 Basophils/100 WBC Auto (Bld) 0 % Normal 0-3 [facility] Work Phone: Eosinophils (Bld) [#/Vol] 0.3 {x10E3/uL} Normal 0.0-0.4 [facility] Work Phone: Comment on above: PATIENT NOT FASTINGP ERFORMED BY: XL VideoChilton Memorial HospitalOfifnf8339 [facility] [id number]; appt 02/02/11 Eosinophils (Bld) [#/Vol] 0.3 10*3/uL Normal 0.0-0.4 [facility]; [facility] Work Phone: Eosinophils Auto #/vol (Bld) 0.3 {x10E3/uL} Normal 0.0-0.4 [facility] Work Phone: Eosinophils/100 WBC (Bld) 2 % Normal 0-7 [facility] Work Phone: Comment on above: PATIENT NOT FASTINGP ERFORMED BY: ANGIE [facility] Rlzqbj5695 [address] [facility] [id number]; appt 02/02/11 Eosinophils/100 WBC Auto (Bld) 2 % Normal 0-7 [facility] Work Phone: Erythrocyte distribution width (RBC) [Ratio] 14.0 % Normal 11.7-15.0 [facility] Work Phone: Comment on above: PATIENT NOT FASTINGP ERFORMED BY: ANGIE [facility] Tzpqir5434 [address] [facility]atiD[facility] [id number]; appt 02/02/11 Erythrocyte distribution width Auto Ratio (RBC) 14.0 % Normal 11.7-15.0 [facility] Work Phone: Hematocrit (Bld) [Volume fraction] 40.2 % Normal 34.0-44.0 [facility] Internal Medicine Work Phone: Comment on above: PATIENT NOT FASTINGP ERFORMED BY: ANGIE [facility] Kkmozw8547 [facility] [id number]; appt 02/02/11 Hematocrit Auto Volume Fraction (Bld) 40.2 % Normal 34.0-44.0 [facility] Internal Medicine Work Phone: Hemoglobin mass conc (Bld) 13.3 g/dL Normal 11.5-15.0 [facility] Work Phone: Comment on above: PATIENT NOT FASTINGP ERFORMED BY: CB [facility] Edwcxr5006 [address] [facility] [id number]; appt 02/02/11 Immature granulocytes #/vol (Bld) 0.0 {x10E3/uL} Normal 0.0-0.1 [facility] Work Phone: Comment on above: PATIENT NOT FASTINGP ERFORMED BY: ANGIE [employer] Lpltau2260 [facility]iveAff[facility] [id number]; appt 02/02/11 Immature granulocytes (Bld) [#/Vol] 0.0 10*3/uL Normal 0.0-0.1 [facility]; [facility] Work Phone: Immature granulocytes/100 WBC (Bld) 0 % Normal 0-2 [facility] Work Phone: Comment on above: Please note refere nce interval change PATIENT NOT FASTINGP ERFORMED BY: ANGIE LabXcode Life Sciencesrp Eeoaht6191 [facility]iveAff[facility] [id number]; appt 02/02/11 Lymphocytes (Bld) [#/Vol] 3.8 {x10E3/uL} Normal 0.7-4.5 [facility] Work Phone: Comment on above: PATIENT NOT FASTINGP ERFORMED BY: ANGIE [employer] Lawbwg3871 [facility]iveAff[facility] [id number]; appt 02/02/11 Lymphocytes (Bld) [#/Vol] 3.8 10*3/uL Normal 0.7-4.5 [facility]; [facility] Work Phone: Lymphocytes Auto #/vol (Bld) 3.8 {x10E3/uL} Normal 0.7-4.5 [facility] Work Phone: Lymphocytes/100 WBC (Bld) 31 % Normal 14- [facility] Work Phone: Comment on above: PATIENT NOT FASTINGP ERFORMED BY: LabX[employer] Wdtcza4473 [facility]iveAff[facility] Partners [id number]; appt 02/02/11 Lymphocytes/100 WBC Auto (Bld) 31 % Normal 14-46 [facility] Work Phone: MCH (RBC) [Entitic mass] 28.7 pg Normal 27.0-34.0 [facility] Work Phone: Comment on above: PATIENT NOT FASTINGP ERFORMED BY: ANGIE Andrzejrp Nswpti3061 [facility] [id number]; appt 02/02/11 MCH Auto Entitic mass (RBC) 28.7 pg Normal 27.0-34.0 [facility] Work Phone: MCHC (RBC) [Mass/Vol] 33.1 g/dL Normal 32.0-36.0 [facility] Internal Medicine Work Phone: Comment on above: PATIENT NOT FASTINGP ERFORMED BY: ANGIE [facility] CenterAsher SternIsqdcs3766 [facility] [id number]; appt 02/02/11 MCHC Auto mass conc (RBC) 33.1 g/dL Normal 32.0-36.0 [facility] Internal Medicine Work Phone: MCV (RBC) [Entitic vol] 87 fL Normal 80-98 [facility] Work Phone: Comment on above: PATIENT NOT FASTINGP ERFORMED BY: ANGIE [facility] CenterAsher Lofttv8322 [facility] [id number]; appt 02/02/11 MCV Auto Entitic volume (RBC) 87 fL Normal 80-98 [facility] Work Phone: Monocytes (Bld) [#/Vol] 0.7 {x10E3/uL} Normal 0.1-1.0 [facility] Internal Medicine Work Phone: Comment on above: PATIENT NOT FASTINGP ERFORMED BY: ANGIE [facility] CenterNathanChilton Memorial HospitalUqwnut7055 [facility] [id number]; appt 02/02/11 Monocytes (Bld) [#/Vol] 0.7 10*3/uL Normal 0.1-1.0 [facility]; [facility] Work Phone: Monocytes Auto #/vol (Bld) 0.7 {x10E3/uL} Normal 0.1-1.0 [facility] Internal Medicine Work Phone: Monocytes/100 WBC (Bld) 6 % Normal 4-13 [facility] Work Phone: Comment on above: PATIENT NOT FASTINGP ERFORMED BY: ANGIE [place] 3686170 [facility] [id number]; appt 02/02/11 Monocytes/100 WBC Auto (Bld) 6 % Normal 4-13 [facility] Work Phone: Neutrophils (Bld) [#/Vol] 7.2 {x10E3/uL} Normal 1.8-7.8 [facility] Work Phone: Comment on above: PATIENT NOT FASTINGP ERFORMED BY: ANGIE XL VideoChilton Memorial HospitalVfjrtc3374 [facility] [id number]; appt 02/02/11 Neutrophils (Bld) [#/Vol] 7.2 10*3/uL Normal 1.8-7.8 [facility]; [facility] Work Phone: Neutrophils Auto #/vol (Bld) 7.2 {x10E3/uL} Normal 1.8-7.8 [facility] Work Phone: Neutrophils/100 WBC (Bld) 61 % Normal 40-74 [facility] Work Phone: Comment on above: PATIENT NOT FASTINGP ERFORMED BY: ANGIE XL VideoChilton Memorial HospitalZyvizv8408 [facility] [id number]; appt 02/02/11 Neutrophils/100 WBC Auto (Bld) 61 % Normal 40-74 [facility] Work Phone: Platelets (Bld) [#/Vol] 322 {x10E3/uL} Normal 140-415 [facility] Work Phone: Comment on above: PATIENT NOT FASTINGP ERFORMED BY: ANGIE XL VideoChilton Memorial HospitalGhrmcc1652 [facility] [id number]; appt 02/02/11 Platelets (Bld) [#/Vol] 322 10*3/uL Normal 140-415 [facility]; [facility] Work Phone: Platelets Auto #/vol (Bld) 322 {x10E3/uL} Normal 140-415 [facility] Work Phone: RBC (Bld) [#/Vol] 4.63 {x10E6/uL} Normal 3.80-5.10 Co mprehensive Internal Medicine Work Phone: Comment on above: PATIENT NOT FASTINGP ERFORMED BY: ANGIE Chan6370 [facility] [id number]; appt 02/02/11 RBC (Bld) [#/Vol] 4.63 10*6/uL Normal 3.80-5.10 [facility] Work Phone: RBC Auto #/vol (Bld) 4.63 {x10E6/uL} Normal 3.80-5.10 [facility] Work Phone: WBC (Bld) [#/Vol] 12.0 {x10E3/uL} Abnormal 4.0-10.5 [facility] Work Phone: Comment on above: PATIENT NOT FASTINGP ERFORMED BY: ANGIE Sternlin6370 [facility] [id number]; appt 02/02/11 WBC (Bld) [#/Vol] 12.0 10*3/uL Abnormal 4.0-10.5 [facility] Work Phone: WBC Auto #/vol (Bld) 12.0 {x10E3/uL} Abnormal 4.0-10.5 [facility] Work Phone: Lipase ([id number])Ordered By: stem Radio Interference Investigator on 01-05-2011 Lipase enzyme act/vol 34 U/L Normal 0-59 [facility] Work Phone: Comment on above: PATIENT NOT FASTINGP ERFORMED BY: ANGIE LabAsher SternRwxomj5703 [facility] [id number] Metabolic Panel, Comprehensi ve ([id number])Ordered By: Retail Presentation Specialist on 01-05-2011 Albumin mass conc 4.5 g/dL Normal 3.5-5.5 Compreh ensive Internal Medicine Work Phone: Comment on above: PATIENT NOT FASTINGP ERFORMED BY: ANGIE LabAsher SternHifqcq9381 [facility] [id number] Albumin/Globulin mass ratio 1.7 {ratio} Normal 1.1-2.5 [facility] Internal Medicine Work Phone: Comment on above: PATIENT NOT FASTINGP ERFORMED BY: ANGIE Frederick Chan[address] RoadDublin [place] [id number] ALP [Catalytic activity/Vol] 59 U/L Normal 25-150 [facility]; [facility] Work Phone: ALP enzyme act/vol 59 [iU]/L Normal 25-150 [facility] Internal Medicine Work Phone: Comment on above: PATIENT NOT FASTINGP ERFORMED BY: ANGIE LabCo Syuqfc7568 [address]low RoadNovant Healthin [place] [id number] ALT [Catalytic activity/Vol] 14 U/L Normal 0-40 [facility]; [facility] Work Phone: ALT enzyme act/vol 14 [iU]/L Normal 0-40 [facility] Internal Medicine Work Phone: Comment on above: PATIENT NOT FASTINGP ERFORMED BY: ANGIE Andrzej Wxeemv5502 [address]low RoadD[facility] [id number] AST [Catalytic activity/Vol] 15 U/L Normal 0-40 [facility]; [facility] Work Phone: AST enzyme act/vol 15 [iU]/L Normal 0-40 [facility] Internal Medicine Work Phone: Comment on above: PATIENT NOT FASTINGP ERFORMED BY: ANGIE LabCo Beuahr[address] [facility] [id number] Bilirubin mass conc 0.3 mg/dL Normal 0.0-1.2 [facility] Internal Medicine Work Phone: Comment on above: PATIENT NOT FASTINGP ERFORMED BY: ANGIE [facility] Smazku1545 [address] RoadDublin [place] [id number] Calcium mass conc 9.7 mg/dL Normal 8.7-10.2 [facility] Internal Medicine Work Phone: Comment on above: PATIENT NOT FASTINGP ERFORMED BY: ANGIE [facility] Jjfgsv[address] [facility] [place] [id number] Chloride molar conc 100 mmol/L Normal 97-108 Compr ehensive Internal Medicine Work Phone: Comment on above: PATIENT NOT FASTINGP ERFORMED BY: ANGIE [facility] [id number] [address] [facility] [id number] CO2 molar conc 22 mmol/L Normal 20-32 Comprehens kena Internal Medicine Work Phone: Comment on above: PATIENT NOT FASTINGP ERFORMED BY: CB [facility] Spunsg4462 [facility] [id number] Creatinine mass conc 0.80 mg/dL Normal 0.57-1.00 [facility] Work Phone: Comment on above: PATIENT NOT FASTINGP ERFORMED BY: CB [facility] Jqulau1410 [facility] [id number] GFR/1.73 sq M predicted among blacks MDRD vol rate/area (S/P/Bld) 102 mL/min/{1.73_m2} Normal Compreh ensive Internal Medicine Work Phone: Comment on above: Note: A persistent e GFR <60 mL/min/1.73 m2 (3 months or more) mayindicate chronic kidney disease. An eGFR >59 mL/min/1.73 m2 with anelevated urine protein also may indicate chronic kidney disease.Calculated using CKD-EPI formula. PATIENT NOT FASTINGP ERFORMED BY: CB [facility] Kiyudp2135 [facility] [id number] GFR/1.73 sq M predicted among non-blacks CKD-EPI vol rate/area (S/P/Bld) 88 mL/min/1.73 Normal [facility] Work Phone: Comment on above: PATIENT NOT FASTINGP ERFORMED BY: CB [facility] [id number] [facility] [id number] Globulin (S) [Mass/Vol] 2.6 g/dL Normal 1.5-4.5 [facility] Work Phone: Comment on above: PATIENT NOT FASTINGP ERFORMED BY: CB [facility] Ehcptz9212 [facility] [id number] Globulin Calculated mass conc (S) 2.6 g/dL Normal 1.5-4.5 [facility] Work Phone: Glucose mass conc 95 mg/dL Normal 65-99 Compreh ensive Internal Medicine Work Phone: Comment on above: PATIENT NOT FASTINGP ERFORMED BY: CB [facility] Duvnzq2888 [address] [facility] [id number] Potassium molar conc 4.7 mmol/L Normal 3.5-5.2 Comp rehensive Internal Medicine Work Phone: Comment on above: PATIENT NOT FASTINGP ERFORMED BY: CB [facility] Gcsxzm1393 [address] [facility] [id number] Protein mass conc 7.1 g/dL Normal 6.0-8.5 Compreh ensive Internal Medicine Work Phone: Comment on above: PATIENT NOT FASTINGP ERFORMED BY: CB [facility] [id number] [address] [facility] [id number] Sodium molar conc 139 mmol/L Normal 135-145 Compreh ensive Internal Medicine Work Phone: Comment on above: PATIENT NOT FASTINGP ERFORMED BY: CB [facility] Ewteth6143 [address] [facility] [id number] Urea nitrogen mass conc 12 mg/dL Normal 6-24 [facility] Work Phone: Comment on above: PATIENT NOT FASTINGP ERFORMED BY: CB [facility] Imfdaa0525 [address] [facility] [id number] Urea nitrogen/Creatinine mass ratio 15 mg/mg Normal 9-23 [facility] Work Phone: Comment on above: PATIENT NOT FASTINGP ERFORMED BY: CB [facility] [id number] [address] [facility] [id number] ABDOMEN, SINGLE VIEWOrdered By: Retail Presentation Specialist on 12-10-2010 ABDOMEN, SINGLE VIEW See Note Normal Comp rehensive Internal Medicine Work Phone: Comment on above: PROCEDURE: X-RAY - A BDOMEN/PELVIS REASON FOR EXAM: Female, 45 years old. Patient presents with rightflankpain. TECHNIQUE: Single AP view of the abdomen / pelvis. COMPARISON: None. FINDINGS: Normal visualized lung bases. There is a moderate amount of colonic fecal material. There is nodemonstrated free abdominal air. Normal visualized liver. Normal visualized spleen. Normal visualized kidneys. There is no demonstrated abnormality of the abdominal aorta. There are calcified phleboliths in the pelvis. Normal visualized osseous structures. IMPRESSION:A moderate amount of fecal material is seen in the colon. Dictated on 12/10/10 1448 by Luisana Elizabeth MDranscribed on 12/11/10 1341 by ITS IMPORTSign by Juanito Elizabeth MD on 12/11/10 1342 Sign by: Juanito Elizabeth MD Urinalysis, Office ([id number])Or dered By: Arcelia Virk on 12-07-2010 Bilirubin Ql (U) Negative Normal Comprehe nsive Internal Medicine Work Phone: Glucose Test strip mass conc (U) Negative Normal [facility] Work Phone: Hemoglobin Ql (U) Hemolyzed Small Normal Co mprehensive [facility] Work Phone: Hemoglobin Test strip Ql (U) Hemolyzed Small Normal [facility] Work Phone: Ketones Ql (U) Negative Normal Comprehens kena [facility] Work Phone: Leukocyte esterase Test strip Ql (U) Negative Normal [facility] Work Phone: Nitrite Ql (U) Negative Normal Comprehens kena [facility] Work Phone: Nitrite Test strip Ql (U) Negative Normal [facility] Work Phone: pH (U) 6.0 [pH] Normal [facility] Work Phone: pH Test strip (U) 6.0 [pH] Normal Compreh ensive [facility] Medicine Work Phone: Protein Ql (U) Negative Normal Comprehens kena [facility] Work Phone: Protein Test strip Ql (U) Negative Normal [facility] Work Phone: Specific gravity Relative Density (U) 1.015 1 Normal Comprehensi Internal Medicine Work Phone: Urobilinogen mass/time (24H U) Normal Normal [facility] Work Phone: Urinalysis, Office ([id number])on 12-07-2010 Bilirubin Ql (U) Negative Normal Comprehe nsive Internal Medicine; [facility] Work Phone: Glucose Test strip (U) [Mass/Vol] Negative Normal [facility]; [facility] Work Phone: Ketones Ql (U) Negative Normal Comprehens kena [facility]; [facility] Work Phone: Leukocyte esterase Test strip Ql (U) Negative Normal [facility]; [facility] Work Phone: Nitrite Ql (U) Negative Normal Comprehens kena [facility]; [facility] Work Phone: Protein Ql (U) Negative Normal Comprehens kena [facility]; [facility] Work Phone: HEBSAB [id number] By: Jamar silva Radio Interference Investigator on 04-01-2010 HEBSAB 6395 < 0.1 Normal 0.00-0.99 [facility] Work Phone: Comment on above: Status of Immunity A nti-HBs Level Inconsistent with Immunity 0.00 - 0.99 Consistent with Immunity >0.99 . An Index Value of 1.00 is equivalent to 10 mIU/mL. However the magnitude of the Index Value is not indicative of the total amount of antibody present.Performed at: [facility] Lab[address] [id number] Director: Radha Seals MD, Phone: [phone] GLUPOrdered By: System Daren er on 11-26-2009 GLUP 123 mg/dL Normal [facility] Work Phone: Comment on above: GLU,2HPPG 75gm GLUC PPG GLUP from [id number]. LIPIDOrdered By: System Sonya lucero on 11-26-2009 Cholesterol in HDL mass conc 63 mg/dL Normal [facility] Work Phone: Comment on above: Reference RangeHDL < 40 mg/dL Low HDL CholesterolHDL >or= 60 mg/dL High HDL Cholesterol Cholesterol in LDL mass conc 136 mg/dL Abnormal 0-130 [facility] Work Phone: Cholesterol in VLDL mass conc 34 mg/dL Normal 5-40 [facility] Work Phone: Cholesterol mass conc 233 mg/dL Abnormal Com prehensive Internal Medicine Work Phone: Comment on above: <200 mg/dL Desirable 200-240 mg/dL Borderline>240 mg/dL High Risk Triglyceride mass conc 172 mg/dL Normal [facility] Work Phone: Comment on above: Serum Triglycerides Reference IntervalNormal <150 mg/dLBorderline high 150 - 199 mg/dLHigh 200 - 499 mg/dLVery High > or = 500 mg/dL TSHOrdered By: System Manage r on 11-26-2009 Thyrotropin Qn 1.75 {uIU/mL} Normal 0.358-3.74 Compreh ensive Internal Medicine Work Phone: CHEST, PA AND LATERAL (MT)Or dered By: Retail Presentation Specialist on 06-06-2009 CHEST, PA AND LATERAL (MT) See Note Normal [facility] Work Phone: Comment on above: Exam Number: [id number] CHEST, PA AND LATERAL PA and lateral chest radiographs were obtained. No previous study isavailable for a comparison. HISTORYThis is a 44-year-old female patient with left-sided chest pain. FINDINGSThe heart is not enlarged. The lungs are clear. 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 There is no evidence ofpneumothorax. There is a mild degree of disc space narrowing at thelevel of the dorsal spine. IMPRESSIONNo significant abnormality is seen. Reported By: JUANITO ELIZABETH Exam Number: [id number] LEFT SHOULDER Multiple views of the left shoulder were obtained. HISTORYThis is a 44-year-old female patient with history of left shoulder andleft-sided chest pain. FINDINGSThere is good alignment. There is a minimal degree of degenerativechanges at the acromioclavicular joint. There is no evidence offracture or dislocation. IMPRESSIONMild degree of degenerative changes at the acromioclavicular joint. Reported By: JUANITO ELIZABETH Vital Signs Date Time Vital Sign Value Performing Clinician Facility 05-07-2024 15:16-0500 Body height 160 cm River La MD Work Phone: [facility] 05-07-2024 15:16-0500 Body mass index (BMI) [Ratio] 44.89 kg/m2 River La MD Work Phone: [facility] 05-07-2024 15:16-0500 Body temperature 98.49 [degF] River La MD Work Phone: [facility] 05-07-2024 15:16-0500 Body weight 114.94 kg River La MD Work Phone: [facility] 05-07-2024 15:16-0500 Diastolic blood pressure 84 mm[Hg] River La MD Work Phone: [facility] 05-07-2024 15:16-0500 Heart rate 80 /min River La MD Work Phone: [facility] 05-07-2024 15:16-0500 SaO2% (BldA) [Mass fraction] 98 % River La MD Work Phone: [facility] 05-07-2024 15:16-0500 Systolic blood pressure 132 mm[Hg] River La MD Work Phone: [facility] 09-11-2023 14:48-0400 Body temperature 98 [degF] Dr. Ivon Lopez Work Phone: [facility] 09-11-2023 14:48-0400 Diastolic blood pressure 77 mm[Hg] Dr. Ivon Lopez Work Phone: [facility] 09-11-2023 14:48-0400 Heart rate 69 /min Dr. Ivon Lopez Work Phone: [facility] 09-11-2023 14:48-0400 Respiratory rate 18 /min Dr. Ivon Lopez Work Phone: [facility] 09-11-2023 14:48-0400 SaO2% (BldA) [Mass fraction] 99 % Dr. Ivon Lopez Work Phone: [facility] 09-11-2023 14:48-0400 Systolic blood pressure 146 mm[Hg] Dr. Ivon Lopez Work Phone: [facility] 09-11-2023 11:31-0400 Body height 160.[address] Ivon Lopez Work Phone: [facility] 09-11-2023 11:31-0400 Body mass index (BMI) [Ratio] 44.4 kg/m2 Dr. Ivon Lopez Work Phone: [facility] 09-11-2023 11:31-0400 Body weight 113.[address] Ivon Lopez Work Phone: [facility] 02-17-2023 10:37-0400 Body height 160.02 cm [facility]; [facility] Work Phone: 02-17-2023 10:37-0400 Body mass index (BMI) [Ratio] 35.61 kg/m2 [facility]; [facility] Work Phone: 02-17-2023 10:37-0400 Body surface area Derived from formula 1.94 m2 [facility]; [facility] Work Phone: 02-17-2023 10:37-0400 Body temperature 97 [degF] [facility]; [facility] Work Phone: 02-17-2023 10:37-0400 Body weight 91.17 kg [facility]; [facility] Work Phone: 02-17-2023 10:37-0400 Diastolic blood pressure 76 mm[Hg] [facility]; [facility] Work Phone: 02-17-2023 10:37-0400 Heart rate 76 /min [facility]; [facility] Work Phone: 02-17-2023 10:37-0400 Respiratory rate 18 /min [facility]; [facility] Work Phone: 02-17-2023 10:37-0400 SaO2% (BldA) [Mass fraction] 96 % Cicero Derby [facility]; [facility] Work Phone: 02-17-2023 10:37-0400 Systolic blood pressure 132 mm[Hg] [facility]; [facility] Work Phone: 02-11-2023 15:22-0400 Body height 158.8 cm Maribell Lucio ASSISTANT ASSOCIATE PROFESSOR-DIRECTOR OF MEDICAL EDUCATION Work Phone: [facility] 02-11-2023 15:22-0400 Body mass index (BMI) [Ratio] 42.05 kg/m2 Maribell Lucio ASSISTANT ASSOCIATE PROFESSOR-DIRECTOR OF MEDICAL EDUCATION Work Phone: [facility] 02-11-2023 15:22-0400 Body weight 105.96 kg Maribell Lucio ASSISTANT ASSOCIATE PROFESSOR-DIRECTOR OF MEDICAL EDUCATION Work Phone: [facility] 02-11-2023 15:22-0400 Diastolic blood pressure 98 mm[Hg] Maribell Lucio ASSISTANT ASSOCIATE PROFESSOR-DIRECTOR OF MEDICAL EDUCATION Work Phone: [facility] 02-11-2023 15:22-0400 Heart rate 76 /min Maribell Kumarid ASSISTANT ASSOCIATE PROFESSOR-DIRECTOR OF MEDICAL EDUCATION Work Phone: [facility] 02-11-2023 15:22-0400 Systolic blood pressure 178 mm[Hg] Maribell Kumarid ASSISTANT ASSOCIATE PROFESSOR-DIRECTOR OF MEDICAL EDUCATION Work Phone: [facility] 01-28-2023 13:52-0400 Body height 158.8 cm Maribell Lucio ASSISTANT ASSOCIATE PROFESSOR-DIRECTOR OF MEDICAL EDUCATION Work Phone: [facility] 01-28-2023 13:52-0400 Body mass index (BMI) [Ratio] 41.6 kg/m2 Maribell Kumarid ASSISTANT ASSOCIATE PROFESSOR-DIRECTOR OF MEDICAL EDUCATION Work Phone: [facility] 01-28-2023 13:52-0400 Body weight 104.83 kg Maribell Kumarid ASSISTANT ASSOCIATE PROFESSOR-DIRECTOR OF MEDICAL EDUCATION Work Phone: [facility] 01-28-2023 13:52-0400 Diastolic blood pressure 70 mm[Hg] Maribell Greensburg ASSISTANT ASSOCIATE PROFESSOR-DIRECTOR OF MEDICAL EDUCATION Work Phone: [facility] 01-28-2023 13:52-0400 Heart rate 79 /min Maribell [place]burg ASSISTANT ASSOCIATE PROFESSOR-DIRECTOR OF MEDICAL EDUCATION Work Phone: [facility] 01-28-2023 13:52-0400 Systolic blood pressure 118 mm[Hg] Maribell Naveed ASSISTANT ASSOCIATE PROFESSOR-DIRECTOR OF MEDICAL EDUCATION Work Phone: [facility] 12-28-2022 14:07-0400 Body height 158.8 cm Maribell Naveed ASSISTANT ASSOCIATE PROFESSOR-DIRECTOR OF MEDICAL EDUCATION Work Phone: [facility] 12-28-2022 14:07-0400 Body mass index (BMI) [Ratio] 40.59 kg/m2 Maribell Greensburg ASSISTANT ASSOCIATE PROFESSOR-DIRECTOR OF MEDICAL EDUCATION Work Phone: [facility] 12-28-2022 14:07-0400 Body weight 102.29 kg Maribell [place] ASSISTANT ASSOCIATE PROFESSOR-DIRECTOR OF MEDICAL EDUCATION Work Phone: [facility] 12-28-2022 14:07-0400 Diastolic blood pressure 66 mm[Hg] Maribell Greensburg ASSISTANT ASSOCIATE PROFESSOR-DIRECTOR OF MEDICAL EDUCATION Work Phone: [facility] 12-28-2022 14:07-0400 Heart rate 65 /min Maribell [place]burg ASSISTANT ASSOCIATE PROFESSOR-DIRECTOR OF MEDICAL EDUCATION Work Phone: [facility] 12-28-2022 14:07-0400 Systolic blood pressure 118 mm[Hg] Maribell Greensburg ASSISTANT ASSOCIATE PROFESSOR-DIRECTOR OF MEDICAL EDUCATION Work Phone: [facility] 02-02-2022 09:55-0400 Diastolic blood pressure 97 mm[Hg] [facility] Work Phone: 02-02-2022 09:55-0400 Heart rate 74 /min [facility] Work Phone: 02-02-2022 09:55-0400 Respiratory rate 16 /min [facility] Work Phone: 02-02-2022 09:55-0400 SaO2% (BldA) [Mass fraction] 98 % [facility] Work Phone: 02-02-2022 09:55-0400 Systolic blood pressure 152 mm[Hg] [facility] Work Phone: 02-02-2022 06:38-0400 Body height 160.02 cm [facility] Work Phone: 02-02-2022 06:38-0400 Body mass index (BMI) [Ratio] 38.1 kg/m2 [facility] Work Phone: 02-02-2022 06:38-0400 Body temperature 97.3 [degF] [facility] Work Phone: 02-02-2022 06:38-0400 Body weight 97.6 kg [facility] Work Phone: 01-21-2022 09:35-0400 Body height 160.02 cm Ivon Bergeron DO Work Phone: [facility]; [facility] Work Phone: 01-21-2022 09:35-0400 Body mass index (BMI) [Ratio] 35.61 kg/m2 Ivon John DO Work Phone: [facility]; [facility] Work Phone: 01-21-2022 09:35-0400 Body surface area Derived from formula 1.94 m2 Ivon John DO Work Phone: [facility]; [facility] Work Phone: 01-21-2022 09:35-0400 Body weight 91.17 kg Ivon John DO Work Phone: [facility]; [facility] Work Phone: 01-21-2022 09:35-0400 Diastolic blood pressure 80 mm[Hg] Ivon John DO Work Phone: [facility]; [facility] Work Phone: 01-21-2022 09:35-0400 Systolic blood pressure 127 mm[Hg] Ivon John DO Work Phone: [facility]; [facility] Work Phone: 01-04-2022 12:32-0400 Body height 160.02 cm Ivon John DO Work Phone: [facility]; [facility] Work Phone: 01-04-2022 12:32-0400 Body mass index (BMI) [Ratio] 35.96 kg/m2 Ivon John DO Work Phone: [facility]; [facility] Work Phone: 01-04-2022 12:32-0400 Body surface area Derived from formula 1.95 m2 Ivon John DO Work Phone: [facility]; [facility] Work Phone: 01-04-2022 12:32-0400 Body weight 92.08 kg Ivon John DO Work Phone: [facility]; [facility] Work Phone: 01-04-2022 12:32-0400 Diastolic blood pressure 80 mm[Hg] Ivon John DO Work Phone: [facility]; [facility] Work Phone: 01-04-2022 12:32-0400 Systolic blood pressure 120 mm[Hg] Ivon John DO Work Phone: [facility]; [facility] Work Phone: 12-25-2021 10:42-0400 Body height 160.02 cm Iqra Erwin [facility]; [facility] Work Phone: 12-25-2021 10:42-0400 Body mass index (BMI) [Ratio] 36.31 kg/m2 Iqra Erwin [employer] [facility]; [facility] Work Phone: 12-25-2021 10:42-0400 Body surface area Derived from formula 1.95 m2 Iqra Erwin [facility]; [facility] Work Phone: 12-25-2021 10:42-0400 Body weight 92.99 kg Iqra Erwin [facility]; [facility] Work Phone: 12-25-2021 10:42-0400 Diastolic blood pressure 86 mm[Hg] Iqra Erwin [facility]; [facility] Work Phone: 12-25-2021 10:42-0400 Diastolic blood pressure 75 mm[Hg] Ivon John DO Work Phone: [facility]; [facility] Work Phone: 12-25-2021 10:42-0400 Systolic blood pressure 135 mm[Hg] Iqra Erwin [facility]; [facility] Work Phone: 12-25-2021 10:42-0400 Systolic blood pressure 120 mm[Hg] Ivon John DO Work Phone: [facility]; [facility] Work Phone: 12-11-2021 11:05-0400 Body height 160.02 cm Iqra Erwin [facility]; [facility] Work Phone: 12-11-2021 11:05-0400 Body mass index (BMI) [Ratio] 37.02 kg/m2 Iqra Erwin [facility]; [facility] Work Phone: 12-11-2021 11:05-0400 Body surface area Derived from formula 1.97 m2 Iqra Erwin [facility]; [facility] Work Phone: 12-11-2021 11:05-0400 Body temperature 97.3 [degF] Iqra Erwin [facility]; [facility] Work Phone: 12-11-2021 11:05-0400 Body weight 94.8 kg Iqra Erwin [facility]; [facility] Work Phone: 12-11-2021 11:05-0400 Diastolic blood pressure 86 mm[Hg] Iqra Erwin [facility]; [facility] Work Phone: 12-11-2021 11:05-0400 Systolic blood pressure 130 mm[Hg] Iqra Erwin [facility]; [facility] Work Phone: 05-20-2021 11:15-0500 Body height 160.02 cm Cece Bonilla LPN [facility]; [facility] Work Phone: 05-20-2021 11:15-0500 Body mass index (BMI) [Ratio] 38.44 kg/m2 Cece Bonilla LPN [facility]; [facility] Work Phone: 05-20-2021 11:15-0500 Body surface area Derived from formula 2 m2 Cece Bonilla LPN [facility]; [facility] Work Phone: 05-20-2021 11:15-0500 Body weight 98.43 kg Cece Bonilla LPN [facility]; [facility] Work Phone: 05-20-2021 11:15-0500 Diastolic blood pressure 86 mm[Hg] Cece Bonilla LPN [facility]; [facility] Work Phone: 05-20-2021 11:15-0500 Systolic blood pressure 130 mm[Hg] Cece Bonilla LPN [facility]; [facility] Work Phone: 05-06-2021 11:58-0500 Body height 160.02 cm Cece Bonilla LPN [facility]; [facility] Work Phone: 05-06-2021 11:58-0500 Body mass index (BMI) [Ratio] 38.97 kg/m2 Ceceelvis Bonilla [employer] [facility]; [facility] Work Phone: 05-06-2021 11:58-0500 Body surface area Derived from formula 2.01 m2 Cece Irene [employer] [facility]; [facility] Work Phone: 05-06-2021 11:58-0500 Body weight 99.79 kg Cece Irene [employer] [facility]; [facility] Work Phone: 05-06-2021 11:58-0500 Diastolic blood pressure 89 mm[Hg] Cece Irene COREASN [facility]; [facility] Work Phone: 05-06-2021 11:58-0500 Systolic blood pressure 128 mm[Hg] Cece Bonilla LPN [facility]; [facility] Work Phone: 04-23-2021 11:03-0500 Body height 160.02 cm Cece Bonilla LPN [facility]; [facility] Work Phone: 04-23-2021 11:03-0500 Body mass index (BMI) [Ratio] 39.33 kg/m2 Cece Irene [employer] [facility]; [facility] Work Phone: 04-23-2021 11:03-0500 Body surface area Derived from formula 2.02 m2 Cece Bonilla LPN [facility]; [facility] Work Phone: 04-23-2021 11:03-0500 Body weight 100.7 kg Ceceelvis Strongdamian CORONADO [facility]; [facility] Work Phone: 04-23-2021 11:03-0500 Diastolic blood pressure 84 mm[Hg] Cece Irene CORONADO [facility]; [facility] Work Phone: 04-23-2021 11:03-0500 Systolic blood pressure 123 mm[Hg] Ceceelvis Bonilla LPN [facility]; [facility] Work Phone: 04-06-2021 10:50-0500 Body height 160.02 cm Emerita Graff MA [facility]; [facility] Work Phone: 04-06-2021 10:50-0500 Body mass index (BMI) [Ratio] 40.74 kg/m2 Emerita Graff MA [facility]; [facility] Work Phone: 04-06-2021 10:50-0500 Body surface area Derived from formula 2.05 m2 Emerita Graff MA [facility]; [facility] Work Phone: 04-06-2021 10:50-0500 Body weight 104.33 kg Emerita Graff MA [facility]; [facility] Work Phone: 04-06-2021 10:50-0500 Diastolic blood pressure 80 mm[Hg] Emerita Graff MA [facility]; [facility] Work Phone: 04-06-2021 10:50-0500 Systolic blood pressure 130 mm[Hg] Emerita Graff MA [facility]; [facility] Work Phone: 03-25-2021 11:47-0500 Body height 160.02 cm Cece Bonilla LPN [facility]; [facility] Work Phone: 03-25-2021 11:47-0500 Body mass index (BMI) [Ratio] 42.51 kg/m2 Cece Bonilla LPN [facility]; [facility] Work Phone: 03-25-2021 11:47-0500 Body surface area Derived from formula 2.09 m2 Cece Bonilla LPN [facility]; [facility] Work Phone: 03-25-2021 11:47-0500 Body temperature 98 [degF] Cece Bonilla LPN [facility]; [facility] Work Phone: 03-25-2021 11:47-0500 Body weight 108.86 kg Cece Bonilla LPN [facility]; [facility] Work Phone: 03-25-2021 11:47-0500 Diastolic blood pressure 90 mm[Hg] Cece Bonilla LPN [facility]; [facility] Work Phone: 03-25-2021 11:47-0500 Heart rate 76 /min Cece Strongman [employer] [facility]; [facility] Work Phone: 03-25-2021 11:47-0500 Systolic blood pressure 134 mm[Hg] Cece Bonilla IVONNE [facility]; [facility] Work Phone: 03-11-2021 10:53-0400 Body height 160.02 cm Ivon John DO Work Phone: [facility]; [facility] Work Phone: 03-11-2021 10:53-0400 Body mass index (BMI) [Ratio] 44.29 kg/m2 Ivon John DO Work Phone: [facility]; [facility] Work Phone: 03-11-2021 10:53-0400 Body surface area Derived from formula 2.13 m2 Ivon John DO Work Phone: [facility]; [facility] Work Phone: 03-11-2021 10:53-0400 Body temperature 98.5 [degF] Ivon John DO Work Phone: [facility]; [facility] Work Phone: 03-11-2021 10:53-0400 Body weight 113.4 kg Ivon John DO Work Phone: [facility]; [facility] Work Phone: 03-11-2021 10:53-0400 Diastolic blood pressure 86 mm[Hg] Ivon John DO Work Phone: [facility]; [facility] Work Phone: 03-11-2021 10:53-0400 Heart rate 76 /min Ivon John DO Work Phone: [facility]; [facility] Work Phone: 03-11-2021 10:53-0400 Systolic blood pressure 138 mm[Hg] Ivon John DO Work Phone: [facility]; [facility] Work Phone: 04-25-2020 10:01-0500 BMI (Body Mass Index) 35.43 kg/m2 Ivon Lopez DO Work Phone: [facility]; [facility] Work Phone: Comment on above: vs visit vs per pt 04-25-2020 10:01-0500 Body Temperature 97.1 [degF] Ivon Lopez DO Work Phone: [facility]; [facility] Work Phone: Comment on above: Method: Oral vs visit vs per pt 04-25-2020 10:01-0500 Body weight 90.72 kg Ivon Lopez DO Work Phone: [facility]; [facility] Work Phone: Comment on above: vs visit vs per pt 04-25-2020 10:01-0500 BP Diastolic 84 mm[Hg] Ivon Lopez DO Work Phone: [facility]; [facility] Work Phone: Comment on above: Patient Position: Sitting vs visit vs per pt 04-25-2020 10:01-0500 BP Systolic 130 mm[Hg] Ivon Lopez DO Work Phone: [facility]; [facility] Work Phone: Comment on above: Patient Position: Sitting vs visit vs per pt 04-25-2020 10:01-0500 BSA (Body Surface Area) 1.93 m2 Ivon Lopez DO Work Phone: [facility]; [facility] Work Phone: Comment on above: vs visit vs per pt 04-25-2020 10:01-0500 Height 160.02 cm Ivon Lopez DO Work Phone: [facility]; [facility] Work Phone: Comment on above: vs visit vs per pt 02-21-2020 11:43-0400 BMI (Body Mass Index) 37.42 kg/m2 [facility]helle [facility] Work Phone: 02-21-2020 11:43-0400 Body weight 98.88 kg [facility] Work Phone: 02-21-2020 11:43-0400 BP Diastolic 85 mm[Hg] [facility] Work Phone: Comment on above: Patient Position: Sitting; Cuff Location : Left Arm; Cuff Size: Standard 02-21-2020 11:43-0400 BP Systolic 130 mm[Hg] [facility] Work Phone: Comment on above: Patient Position: Sitting; Cuff Location : Left Arm; Cuff Size: Standard 02-21-2020 11:43-0400 BSA (Body Surface Area) 2.03 m2 [facility] Work Phone: 02-21-2020 11:43-0400 Height 162.56 cm [facility] Work Phone: 12-18-2019 11:55-0400 BMI (Body Mass Index) 37.42 kg/m2 Rinku Cuco [facility] Work Phone: 12-18-2019 11:55-0400 Body weight 98.88 kg Rinku Cuco [facility] Work Phone: 12-18-2019 11:55-0400 BSA (Body Surface Area) 2.03 m2 Rinku Norwood [facility] Work Phone: 12-18-2019 11:55-0400 Height 162.56 cm Rinku Cuco [facility] Work Phone: 11-27-2019 14:24-0400 BMI (Body Mass Index) 37.42 kg/m2 Maribel Noel [facility] Work Phone: 11-27-2019 14:24-0400 Body Temperature 97.3 [degF] Maribel Slarb [facility] Work Phone: 11-27-2019 14:24-0400 Body weight 98.88 kg Maribel Slarb [employer] [facility] Work Phone: 11-27-2019 14:24-0400 BP Diastolic 80 mm[Hg] Maribel Slarb [employer] [facility] Work Phone: Comment on above: Patient Position: Sitting; Cuff Location : Left Arm; Cuff Size: Standard 11-27-2019 14:24-0400 BP Systolic 124 mm[Hg] Maribel Slarb [employer] [facility] Work Phone: Comment on above: Patient Position: Sitting; Cuff Location : Left Arm; Cuff Size: Standard 11-27-2019 14:24-0400 BSA (Body Surface Area) 2.03 m2 Maribel Slarb [employer] [facility] Work Phone: 11-27-2019 14:24-0400 Height 162.56 cm Maribel Slarb [employer] [facility] Work Phone: 11-27-2019 14:24-0400 Pulse (Heart Rate) 80 /min Maribel Eliezerrb [employer] [facility] Work Phone: Comment on above: Pattern: Regular 11-27-2019 14:24-0400 Pulse Oximetry 99 % Ivon John [facility] Work Phone: Comment on above: Room air 11-27-2019 14:24-0400 Respiratory Rate 16 /min Maribel Slarb [employer] [facility] Work Phone: Comment on above: Pattern: Unlabored 11-27-2019 14:24-0400 SaO2% (BldA) [Mass fraction] 99 % Maribel Slarb [employer] [facility]; [facility] Work Phone: 08-30-2019 12:40-0400 BMI (Body Mass Index) 37.51 kg/m2 Ivonhasmukh Lopez DO Work Phone: [facility] Work Phone: Comment on above: vitals phone visit- patient reported 08-30-2019 12:40-0400 Body weight 99.11 kg Ivonhasmukh Bergeron DO Work Phone: [facility] Work Phone: Comment on above: vitals phone visit- patient reported 08-30-2019 12:40-0400 BP Diastolic 78 mm[Hg] Ivon John DO Work Phone: [facility] Work Phone: Comment on above: Patient Position: Sitting vitals phone visit- patient reported 08-30-2019 12:40-0400 BP Systolic 127 mm[Hg] Ivon John DO Work Phone: [facility] Work Phone: Comment on above: Patient Position: Sitting vitals phone visit- patient reported 08-30-2019 12:40-0400 BSA (Body Surface Area) 2.03 m2 Ivon John DO Work Phone: [facility] Work Phone: Comment on above: vitals phone visit- patient reported 08-30-2019 12:40-0400 Height 162.56 cm Ivon John DO Work Phone: [facility] Work Phone: Comment on above: vitals phone visit- patient reported 08-30-2019 12:40-0400 Pulse (Heart Rate) 78 /min Ivon John DO Work Phone: [facility] Work Phone: Comment on above: Pattern: Regular vitals phone visit- patient reported 02-14-2019 11:31-0400 BMI (Body Mass Index) 37.51 kg/m2 Maribel Slarb [employer] [facility] Work Phone: 02-14-2019 11:31-0400 Body Temperature 97.9 [degF] Maribel Slarb [employer] [facility] Work Phone: 02-14-2019 11:31-0400 Body weight 99.11 kg Maribel Slarb [employer] [facility] Work Phone: 02-14-2019 11:31-0400 BP Diastolic 88 mm[Hg] Maribel Slarb [employer] [facility] Work Phone: Comment on above: Patient Position: Sitting; Cuff Location : Left Arm; Cuff Size: Standard 02-14-2019 11:31-0400 BP Systolic 124 mm[Hg] Maribel Martinsrb [employer] [facility] Work Phone: Comment on above: Patient Position: Sitting; Cuff Location : Left Arm; Cuff Size: Standard 02-14-2019 11:31-0400 BSA (Body Surface Area) 2.03 m2 Maribel Slarb [employer] [facility] Work Phone: 02-14-2019 11:31-0400 Height 162.56 cm Maribel Slarb [employer] [facility] Work Phone: 02-14-2019 11:31-0400 Pulse (Heart Rate) 87 /min Maribel Eliezerrb [employer] [facility] Work Phone: Comment on above: Pattern: Regular 02-14-2019 11:31-0400 Pulse Oximetry 98 % Ivon John [facility] Work Phone: Comment on above: Room air 02-14-2019 11:31-0400 Respiratory Rate 18 /min Maribel Eliezerrb [employer] [facility] Work Phone: Comment on above: Pattern: Unlabored 02-14-2019 11:31-0400 SaO2% (BldA) [Mass fraction] 98 % Maribel Eliezerrb [employer] [facility]; [facility] Work Phone: 09-22-2018 11:26-0400 BMI (Body Mass Index) 34.69 kg/m2 Ema Westfall RN [facility] Work Phone: 09-22-2018 11:26-0400 Body weight 91.68 kg Ema Westfall RN [facility] Work Phone: 09-22-2018 11:26-0400 BP Diastolic 68 mm[Hg] Ema Westfall RN [facility] Work Phone: Comment on above: Patient Position: Sitting; Cuff Location : Left Arm; Cuff Size: Large 09-22-2018 11:26-0400 BP Systolic 122 mm[Hg] Ema Westfall RN [facility] Work Phone: Comment on above: Patient Position: Sitting; Cuff Location : Left Arm; Cuff Size: Large 09-22-2018 11:26-0400 BSA (Body Surface Area) 1.96 m2 Ema Westfall RN [facility] Work Phone: 09-22-2018 11:26-0400 Height 162.56 cm Ema Westfall RN [facility] Work Phone: 09-22-2018 11:26-0400 Pulse (Heart Rate) 71 /min Ema Westfall RN [facility] Work Phone: Comment on above: Pattern: Regular 09-22-2018 11:26-0400 Pulse Oximetry 98 % Ivon John [facility] Work Phone: Comment on above: Room air 09-22-2018 11:26-0400 Respiratory Rate 18 /min Ema Westfall RN [facility] Work Phone: Comment on above: Pattern: Unlabored 09-22-2018 11:26-0400 SaO2% (BldA) [Mass fraction] 98 % Ema Westfall RN [facility] Work Phone: 09-22-2018 11:26-0400 Weight 91.68 kg Ivon Bergeron [facility] Work Phone: 09-06-2018 08:27-0400 BMI (Body Mass Index) 35.45 kg/m2 Iqra Erwin [facility] Work Phone: 09-06-2018 08:27-0400 Body Temperature 97.2 [degF] Iqra Nanceius [facility] Work Phone: Comment on above: Method: Temporal 09-06-2018 08:27-0400 Body weight 93.67 kg Iqra Erwin [facility] Work Phone: 09-06-2018 08:27-0400 BP Diastolic 82 mm[Hg] Iqra Gravius [facility] Work Phone: Comment on above: Patient Position: Sitting; Cuff Location : Left Arm; Cuff Size: Standard 09-06-2018 08:27-0400 BP Systolic 138 mm[Hg] Iqra Gravius [facility] Work Phone: Comment on above: Patient Position: Sitting; Cuff Location : Left Arm; Cuff Size: Standard 09-06-2018 08:27-0400 BSA (Body Surface Area) 1.98 m2 Iqra Erwin [facility] Work Phone: 09-06-2018 08:27-0400 Height 162.56 cm Iqra Erwin [facility] Work Phone: 09-06-2018 08:27-0400 Pulse (Heart Rate) 88 /min Iqra Erwin [facility] Work Phone: Comment on above: Pattern: Regular 09-06-2018 08:27-0400 Pulse Oximetry 97 % Ivon Lopez [facility] Work Phone: Comment on above: Room air 09-06-2018 08:27-0400 Respiratory Rate 18 /min Iqra Erwin [facility] Work Phone: Comment on above: Pattern: Unlabored 09-06-2018 08:27-0400 SaO2% (BldA) [Mass fraction] 97 % Iqra Erwin [facility] Work Phone: 09-06-2018 08:27-0400 Weight 93.67 kg Ivon Lopez [facility] Work Phone: 08-25-2018 11:53-0400 BMI (Body Mass Index) 36.13 kg/m2 Ema Westfall RN [facility] Work Phone: 08-25-2018 11:53-0400 Body weight 95.48 kg Ema Westfall RN [facility] Work Phone: 08-25-2018 11:53-0400 BP Diastolic 86 mm[Hg] Ema Westfall RN [facility] Work Phone: Comment on above: Patient Position: Sitting; Cuff Location : Left Arm; Cuff Size: Large 08-25-2018 11:53-0400 BP Systolic 122 mm[Hg] Ema Westfall RN [facility] Work Phone: Comment on above: Patient Position: Sitting; Cuff Location : Left Arm; Cuff Size: Large 08-25-2018 11:53-0400 BSA (Body Surface Area) 2 m2 Ema Westfall RN [facility] Work Phone: 08-25-2018 11:53-0400 Height 162.56 cm Ema Westfall RN [facility] Work Phone: 08-25-2018 11:53-0400 Pulse (Heart Rate) 70 /min Ema Westfall RN [facility] Work Phone: Comment on above: Pattern: Regular 08-25-2018 11:53-0400 Pulse Oximetry 97 % Ivon Lopez [facility] Work Phone: Comment on above: Room air 08-25-2018 11:53-0400 Respiratory Rate 18 /min Ema Westfall RN [facility] Work Phone: Comment on above: Pattern: Unlabored 08-25-2018 11:53-0400 SaO2% (BldA) [Mass fraction] 97 % Ema Westfall RN [facility]; [facility] Work Phone: 08-25-2018 11:53-0400 Weight 95.48 kg Ivon Lopez [facility] Work Phone: 07-31-2018 12:29-0400 BMI (Body Mass Index) 38.51 kg/m2 Ema Westfall RN [facility] Work Phone: 07-31-2018 12:29-0400 Body weight 101.78 kg Ema Westfall RN [facility] Work Phone: 07-31-2018 12:29-0400 BP Diastolic 88 mm[Hg] Ema Westfall RN [facility] Work Phone: Comment on above: Patient Position: Sitting; Cuff Location : Left Arm; Cuff Size: Large 07-31-2018 12:29-0400 BP Systolic 130 mm[Hg] Ema Westfall RN [facility] Work Phone: Comment on above: Patient Position: Sitting; Cuff Location : Left Arm; Cuff Size: Large 07-31-2018 12:29-0400 BSA (Body Surface Area) 2.05 m2 Ema Westfall RN [facility] Work Phone: 07-31-2018 12:29-0400 Height 162.56 cm Ema Westfall RN [facility] Work Phone: 07-31-2018 12:29-0400 Pulse (Heart Rate) 77 /min Ema Westfall RN [facility] Work Phone: Comment on above: Pattern: Regular 07-31-2018 12:29-0400 Pulse Oximetry 97 % Ivon Lopez [facility] Work Phone: Comment on above: Room air 07-31-2018 12:29-0400 Respiratory Rate 18 /min Ema Westfall RN [facility] Work Phone: Comment on above: Pattern: Unlabored 07-31-2018 12:29-0400 SaO2% (BldA) [Mass fraction] 97 % Ema Westfall RN [facility]; [facility] Work Phone: 07-31-2018 12:29-0400 Weight 101.78 kg Ivon Bergeron [facility] Work Phone: 06-23-2018 11:21-0500 BMI (Body Mass Index) 36.05 kg/m2 Ema Westfall RN [facility] Work Phone: 06-23-2018 11:21-0500 Body Temperature 97.3 [degF] Ema Westfall RN [facility] Work Phone: Comment on above: Method: Temporal 06-23-2018 11:21-0500 Body weight 95.26 kg Ema Westfall RN [facility] Work Phone: 06-23-2018 11:21-0500 BP Diastolic 98 mm[Hg] Ema Westfall RN [facility] Work Phone: Comment on above: Patient Position: Sitting; Cuff Location : Left Arm; Cuff Size: Large 06-23-2018 11:21-0500 BP Systolic 141 mm[Hg] Ema Westfall RN [facility] Work Phone: Comment on above: Patient Position: Sitting; Cuff Location : Left Arm; Cuff Size: Large 06-23-2018 11:21-0500 BSA (Body Surface Area) 2 m2 Ema Westfall RN [facility] Work Phone: 06-23-2018 11:21-0500 Height 162.56 cm Ema Westfall RN [facility] Work Phone: 06-23-2018 11:21-0500 Pulse (Heart Rate) 83 /min Ema Westfall RN [facility] Work Phone: Comment on above: Pattern: Regular 06-23-2018 11:21-0500 Pulse Oximetry 98 % Ivon Lopez [facility] Work Phone: Comment on above: Room air 06-23-2018 11:21-0500 Respiratory Rate 18 /min Ema Westfall RN [facility] Work Phone: Comment on above: Pattern: Unlabored 06-23-2018 11:21-0500 SaO2% (BldA) [Mass fraction] 98 % Ema Westfall RN [facility]; [facility] Work Phone: 06-23-2018 11:21-0500 Weight 95.26 kg Ivon Lopez [facility] Work Phone: 06-16-2018 10:54-0500 BMI (Body Mass Index) 37.25 kg/m2 Ema Westfall RN [facility] Work Phone: 06-16-2018 10:54-0500 Body Temperature 97.9 [degF] Ema Westfall RN [facility] Work Phone: Comment on above: Method: Temporal 06-16-2018 10:54-0500 Body weight 98.43 kg Ema Westfall RN [facility] Work Phone: 06-16-2018 10:54-0500 BP Diastolic 101 mm[Hg] Ema Westfall RN [facility] Work Phone: Comment on above: Patient Position: Sitting; Cuff Location : Left Arm; Cuff Size: Standard 06-16-2018 10:54-0500 BP Systolic 142 mm[Hg] Ema Westfall RN [facility] Work Phone: Comment on above: Patient Position: Sitting; Cuff Location : Left Arm; Cuff Size: Standard 06-16-2018 10:54-0500 BSA (Body Surface Area) 2.03 m2 Ema Westfall RN [facility] Work Phone: 06-16-2018 10:54-0500 Height 162.56 cm Ema Westfall RN [facility] Work Phone: 06-16-2018 10:54-0500 Pulse (Heart Rate) 71 /min Ema Westfall RN [facility] Work Phone: Comment on above: Pattern: Regular 06-16-2018 10:54-0500 Pulse Oximetry 98 % Ivon Lopez [facility] Work Phone: Comment on above: Room air 06-16-2018 10:54-0500 Respiratory Rate 16 /min Ema Westfall RN [facility] Work Phone: Comment on above: Pattern: Unlabored 06-16-2018 10:54-0500 SaO2% (BldA) [Mass fraction] 98 % Ema Westfall RN [facility]; [facility] Work Phone: 06-16-2018 10:54-0500 Weight 98.43 kg Ivon Lopez [facility] Work Phone: 11-08-2017 10:19-0400 BMI (Body Mass Index) 35.27 kg/m2 mEa Westfall RN [facility] Work Phone: 11-08-2017 10:19-0400 Body weight 93.21 kg Ema Westfall RN [facility] Work Phone: 11-08-2017 10:19-0400 BP Diastolic 98 mm[Hg] Ema Westfall RN [facility] Work Phone: Comment on above: Patient Position: Sitting; Cuff Location : Left Arm; Cuff Size: Large 11-08-2017 10:19-0400 BP Systolic 138 mm[Hg] Ema Westfall RN [facility] Work Phone: Comment on above: Patient Position: Sitting; Cuff Location : Left Arm; Cuff Size: Large 11-08-2017 10:19-0400 BSA (Body Surface Area) 1.98 m2 Ema Westfall RN [facility] Work Phone: 11-08-2017 10:19-0400 Height 162.56 cm Ema Westfall RN [facility] Work Phone: 11-08-2017 10:19-0400 Pulse (Heart Rate) 95 /min Ema Westfall RN [facility] Work Phone: Comment on above: Pattern: Regular 11-08-2017 10:19-0400 Pulse Oximetry 99 % Ivon Bergeron [facility] Work Phone: Comment on above: Room air 11-08-2017 10:19-0400 Respiratory Rate 18 /min Ema Westfall RN [facility] Work Phone: Comment on above: Pattern: Unlabored 11-08-2017 10:19-0400 SaO2% (BldA) [Mass fraction] 99 % Ema Westfall RN [facility]; [facility] Work Phone: 11-08-2017 10:19-0400 Weight 93.21 kg Ivon Lopez [facility] Work Phone: 09-30-2017 11:47-0400 BMI (Body Mass Index) 36.22 kg/m2 Radha Garcia RN [facility] Work Phone: 09-30-2017 11:47-0400 Body Temperature 97.8 [degF] Radha Garcia RN [facility] Work Phone: Comment on above: Method: Temporal 09-30-2017 11:47-0400 Body weight 95.71 kg Radha Garcia RN [facility] Work Phone: 09-30-2017 11:47-0400 BP Diastolic 84 mm[Hg] Radha Garcia RN [facility] Work Phone: Comment on above: Patient Position: Sitting; Cuff Location : Left Arm; Cuff Size: Standard 09-30-2017 11:47-0400 BP Systolic 132 mm[Hg] Radha Garcia RN [facility] Work Phone: Comment on above: Patient Position: Sitting; Cuff Location : Left Arm; Cuff Size: Standard 09-30-2017 11:47-0400 BSA (Body Surface Area) 2 m2 Radha Garcia RN [facility] Work Phone: 09-30-2017 11:47-0400 Height 162.56 cm Radha Garcia RN [facility] Work Phone: 09-30-2017 11:47-0400 Pulse (Heart Rate) 81 /min Radha Garcia RN [facility] Work Phone: Comment on above: Pattern: Regular 09-30-2017 11:47-0400 Pulse Oximetry 97 % Ivon Lopez [facility] Work Phone: Comment on above: Room air 09-30-2017 11:47-0400 Respiratory Rate 16 /min Rahda Garcia RN [facility] Work Phone: Comment on above: Pattern: Unlabored 09-30-2017 11:47-0400 SaO2% (BldA) [Mass fraction] 97 % Radha Garcia RN [facility]; [facility] Work Phone: 09-30-2017 11:47-0400 Weight 95.71 kg Ivon Lopez [facility] Work Phone: 08-23-2017 11:59-0400 BMI (Body Mass Index) 37.16 kg/m2 Ema Westfall RN [facility] Work Phone: 08-23-2017 11:59-0400 Body weight 98.2 kg Ema Westfall RN [facility] Work Phone: 08-23-2017 11:59-0400 BP Diastolic 84 mm[Hg] Ema Westfall RN [facility] Work Phone: Comment on above: Patient Position: Sitting; Cuff Location : Left Arm; Cuff Size: Large 08-23-2017 11:59-0400 BP Systolic 128 mm[Hg] Ema Westfall RN [facility] Work Phone: Comment on above: Patient Position: Sitting; Cuff Location : Left Arm; Cuff Size: Large 08-23-2017 11:59-0400 BSA (Body Surface Area) 2.02 m2 Ema Westfall RN [facility] Work Phone: 08-23-2017 11:59-0400 Height 162.56 cm Ema Westfall RN [facility] Work Phone: 08-23-2017 11:59-0400 Pulse (Heart Rate) 112 /min Ema Westfall RN [facility] Work Phone: Comment on above: Pattern: Regular 08-23-2017 11:59-0400 Pulse Oximetry 98 % Ivon Lopez [facility] Work Phone: Comment on above: Room air 08-23-2017 11:59-0400 Respiratory Rate 18 /min Ema Westfall RN [facility] Work Phone: Comment on above: Pattern: Unlabored 08-23-2017 11:59-0400 SaO2% (BldA) [Mass fraction] 98 % Ema Westfall RN [facility]; [facility] Work Phone: 08-23-2017 11:59-0400 Weight 98.2 kg Ivon Lopez [facility] Work Phone: 05-06-2017 14:44-0500 BMI (Body Mass Index) 35.7 kg/m2 ELMER Lester LPN [facility] Work Phone: 05-06-2017 14:44-0500 Body Temperature 97.6 [degF] ELMER Lester LPN [facility] Work Phone: Comment on above: Method: Temporal 05-06-2017 14:44-0500 Body weight 94.35 kg ELMER Lester LPN [facility] Work Phone: 05-06-2017 14:44-0500 BP Diastolic 84 mm[Hg] ELMER Lester LPN [facility] Medicine Work Phone: Comment on above: Patient Position: Sitting; Cuff Location : Left Arm; Cuff Size: Large 05-06-2017 14:44-0500 BP Systolic 124 mm[Hg] ELMER Lester LPN [facility] Work Phone: Comment on above: Patient Position: Sitting; Cuff Location : Left Arm; Cuff Size: Large 05-06-2017 14:44-0500 BSA (Body Surface Area) 1.99 m2 ELMER Lester LPN [facility] Work Phone: 05-06-2017 14:44-0500 Height 162.56 cm ELMER Lester LPN [facility] Work Phone: 05-06-2017 14:44-0500 Pulse (Heart Rate) 102 /min ELMER Lester LPN [facility] Work Phone: Comment on above: Pattern: Regular 05-06-2017 14:44-0500 Pulse Oximetry 98 % Ivon Lopez [facility] Work Phone: Comment on above: Room air 05-06-2017 14:44-0500 Respiratory Rate 20 /min ELMER Lester IVONNE [facility] Work Phone: Comment on above: Pattern: Unlabored 05-06-2017 14:44-0500 SaO2% (BldA) [Mass fraction] 98 % ELMER Lester IVONNE [facility]; [facility] Work Phone: 05-06-2017 14:44-0500 Weight 94.35 kg Ivon Lopez [facility] Work Phone: 03-11-2017 12:12-0400 BMI (Body Mass Index) 36.22 kg/m2 Radha Garcia RN [facility] Work Phone: 03-11-2017 12:12-0400 Body Temperature 98.2 [degF] Radha Garcia RN [facility] Work Phone: Comment on above: Method: Temporal 03-11-2017 12:12-0400 Body weight 95.71 kg Radha Garcia RN [facility] Work Phone: 03-11-2017 12:12-0400 BP Diastolic 74 mm[Hg] Radha Garcia RN [facility] Work Phone: Comment on above: Patient Position: Sitting; Cuff Location : Left Arm; Cuff Size: Standard 03-11-2017 12:12-0400 BP Systolic 124 mm[Hg] Radha Garcia RN [facility] Work Phone: Comment on above: Patient Position: Sitting; Cuff Location : Left Arm; Cuff Size: Standard 03-11-2017 12:12-0400 BSA (Body Surface Area) 2 m2 Radha Garcia RN [facility] Work Phone: 03-11-2017 12:12-0400 Height 162.56 cm Radha Garcia RN [facility] Work Phone: 03-11-2017 12:12-0400 Pulse (Heart Rate) 72 /min Radha Garcia RN [facility] Work Phone: Comment on above: Pattern: Regular 03-11-2017 12:12-0400 Pulse Oximetry 97 % Ivon Lopez [facility] Work Phone: Comment on above: Room air 03-11-2017 12:12-0400 Respiratory Rate 16 /min Radha Garcia RN [facility] Work Phone: Comment on above: Pattern: Unlabored 03-11-2017 12:12-0400 SaO2% (BldA) [Mass fraction] 97 % Radha Garcia RN [facility]; [facility] Work Phone: 03-11-2017 12:12-0400 Weight 95.71 kg Ivon Lopez [facility] Work Phone: 02-07-2017 09:27-0400 BMI (Body Mass Index) 38.66 kg/m2 Ema Westfall RN [facility] Work Phone: 02-07-2017 09:27-0400 Body weight 102.17 kg Ema Westfall RN [facility] Work Phone: 02-07-2017 09:27-0400 BP Diastolic 92 mm[Hg] Ema Westfall RN [facility] Work Phone: Comment on above: Patient Position: Sitting; Cuff Location : Left Arm; Cuff Size: Large 02-07-2017 09:27-0400 BP Systolic 128 mm[Hg] Ema Westfall RN [facility] Work Phone: Comment on above: Patient Position: Sitting; Cuff Location : Left Arm; Cuff Size: Large 02-07-2017 09:27-0400 BSA (Body Surface Area) 2.06 m2 Ema Westfall RN [facility] Work Phone: 02-07-2017 09:27-0400 Height 162.56 cm Ema Westfall RN [facility] Work Phone: 02-07-2017 09:27-0400 Pulse (Heart Rate) 74 /min Ema Westfall RN [facility] Work Phone: Comment on above: Pattern: Regular 02-07-2017 09:27-0400 Pulse Oximetry 98 % Ivon Lopez [facility] Work Phone: Comment on above: Room air 02-07-2017 09:27-0400 Respiratory Rate 18 /min Ema Westfall RN [facility] Work Phone: Comment on above: Pattern: Unlabored 02-07-2017 09:27-0400 SaO2% (BldA) [Mass fraction] 98 % Ema Westfall RN [facility]; [facility] Work Phone: 02-07-2017 09:27-0400 Weight 102.17 kg Ivon Lopez [facility] Work Phone: 06-02-2016 09:51-0500 BMI (Body Mass Index) 36.56 kg/m2 Maribel Slarb [employer] [facility] Work Phone: 06-02-2016 09:51-0500 Body Temperature 97.9 [degF] Maribel Slarb [employer] [facility] Medicine Work Phone: 06-02-2016 09:51-0500 Body weight 96.62 kg Maribel Slarb [employer] [facility] Work Phone: 06-02-2016 09:51-0500 BP Diastolic 84 mm[Hg] Maribel Slarb [employer] [facility] Work Phone: Comment on above: Patient Position: Sitting; Cuff Location : Left Arm; Cuff Size: Standard 06-02-2016 09:51-0500 BP Systolic 140 mm[Hg] Maribel Slarb [employer] [facility] Work Phone: Comment on above: Patient Position: Sitting; Cuff Location : Left Arm; Cuff Size: Standard 06-02-2016 09:51-0500 BSA (Body Surface Area) 2.01 m2 Maribel Slarb [employer] [facility] Work Phone: 06-02-2016 09:51-0500 Height 162.56 cm Maribel Slarb [employer] [facility] Work Phone: 06-02-2016 09:51-0500 Pulse (Heart Rate) 84 /min Maribel Sadie [facility] Work Phone: Comment on above: Pattern: Regular 06-02-2016 09:51-0500 Pulse Oximetry 95 % Ivon Lopez [facility] Work Phone: Comment on above: Room air 06-02-2016 09:51-0500 Respiratory Rate 16 /min Maribel Sadie CORONADO [facility] Work Phone: Comment on above: Pattern: Unlabored 06-02-2016 09:51-0500 SaO2% (BldA) [Mass fraction] 95 % Maribel Noel LPN [facility]; [facility] Work Phone: 06-02-2016 09:51-0500 Weight 96.62 kg Ivon Lopez [facility] Work Phone: 05-21-2016 14:18-0500 BMI (Body Mass Index) 36.09 kg/m2 Ema Westfall RN [facility] Work Phone: 05-21-2016 14:18-0500 Body weight 95.37 kg Ema Westfall RN [facility] Work Phone: 05-21-2016 14:18-0500 BP Diastolic 82 mm[Hg] Ema Westfall RN [facility] Work Phone: Comment on above: Patient Position: Sitting; Cuff Location : Left Arm; Cuff Size: Large 05-21-2016 14:18-0500 BP Systolic 138 mm[Hg] Ema Westfall RN [facility] Work Phone: Comment on above: Patient Position: Sitting; Cuff Location : Left Arm; Cuff Size: Large 05-21-2016 14:18-0500 BSA (Body Surface Area) 2 m2 Ema Westfall RN [facility] Work Phone: 05-21-2016 14:18-0500 Height 162.56 cm Ema Westfall RN [facility] Work Phone: 05-21-2016 14:18-0500 Pulse (Heart Rate) 80 /min Ema Westfall RN [facility] Work Phone: Comment on above: Pattern: Regular 05-21-2016 14:18-0500 Pulse Oximetry 97 % Ivon John [facility] Work Phone: Comment on above: Room air 05-21-2016 14:18-0500 Respiratory Rate 18 /min Ema Westfall RN [facility] Work Phone: Comment on above: Pattern: Unlabored 05-21-2016 14:18-0500 SaO2% (BldA) [Mass fraction] 97 % Ema Westfall RN [facility]; [facility] Work Phone: 05-21-2016 14:18-0500 Weight 95.37 kg Ivon Lopez [facility] Work Phone: 04-07-2016 13:05-0500 BMI (Body Mass Index) 36.09 kg/m2 Ema Westfall RN [facility] Work Phone: 04-07-2016 13:05-0500 Body weight 95.37 kg Ema Westfall RN [facility] Work Phone: 04-07-2016 13:05-0500 BP Diastolic 102 mm[Hg] Ema Westfall RN [facility] Work Phone: Comment on above: Patient Position: Sitting; Cuff Location : Left Arm; Cuff Size: Large 04-07-2016 13:05-0500 BP Systolic 138 mm[Hg] Ema Westfall RN [facility] Work Phone: Comment on above: Patient Position: Sitting; Cuff Location : Left Arm; Cuff Size: Large 04-07-2016 13:05-0500 BSA (Body Surface Area) 2 m2 Ema Westfall RN [facility] Work Phone: 04-07-2016 13:05-0500 Height 162.56 cm Ema Westfall RN [facility] Work Phone: 04-07-2016 13:05-0500 Pulse (Heart Rate) 72 /min Ema Westfall RN [facility] Work Phone: Comment on above: Pattern: Regular 04-07-2016 13:05-0500 Pulse Oximetry 97 % Ivon John [facility] Work Phone: Comment on above: Room air 04-07-2016 13:05-0500 Respiratory Rate 18 /min Ema Westfall RN [facility] Work Phone: Comment on above: Pattern: Unlabored 04-07-2016 13:05-0500 SaO2% (BldA) [Mass fraction] 97 % Ema Westfall RN [facility]; [facility] Work Phone: 04-07-2016 13:05-0500 Weight 95.37 kg Ivon Lopez [facility] Work Phone: 09-29-2015 14:01-0400 BMI (Body Mass Index) 30.62 kg/m2 Selena Santillan [facility] Work Phone: 09-29-2015 14:-0400 Body Temperature 98 [degF] Selena Santillan [facility] Work Phone: Comment on above: Method: Oral 09-29-2015 14:-0400 Body weight 80.91 kg Selena Santillan [facility] Work Phone: 09-29-2015 14:01-0400 BP Diastolic 70 mm[Hg] Selena Jacque [facility] Work Phone: Comment on above: Patient Position: Sitting; Cuff Location : Left Arm; Cuff Size: Standard 09-29-2015 14:01-0400 BP Systolic 140 mm[Hg] Selena Jacque [facility] Work Phone: Comment on above: Patient Position: Sitting; Cuff Location : Left Arm; Cuff Size: Standard 09-29-2015 14:01-0400 BSA (Body Surface Area) 1.86 m2 Selena Santillan [facility] Work Phone: 09-29-2015 14:-0400 Height 162.56 [facility] Work Phone: 09-29-2015 14:01-0400 Pulse (Heart Rate) 75 /min Selena Jacque [facility] Work Phone: Comment on above: Pattern: Regular 09-29-2015 14:01-0400 Pulse Oximetry 98 % Ivon Lopez [facility] Work Phone: Comment on above: Room air 09-29-2015 14:01-0400 Respiratory Rate 16 /min Selena Santillan [facility] Work Phone: Comment on above: Pattern: Unlabored 09-29-2015 14:01-0400 SaO2% (BldA) [Mass fraction] 98 % Selena Santillan [facility]; [facility] Work Phone: 09-29-2015 14:01-0400 Weight 80.91 kg Ivon Lopez [facility] Work Phone: 11-01-2014 13:04-0400 BMI (Body Mass Index) 30.62 kg/m2 Radha Garcia RN [facility] Work Phone: 11-01-2014 13:04-0400 Body Temperature 98.1 [degF] Radha Garcia RN [facility] Work Phone: Comment on above: Method: Temporal 11-01-2014 13:04-0400 Body weight 80.91 kg Radha Garcia RN [facility] Work Phone: 11-01-2014 13:04-0400 BP Diastolic 78 mm[Hg] Radha Garcia RN [facility] Work Phone: Comment on above: Patient Position: Sitting; Cuff Location : Left Arm; Cuff Size: Standard 11-01-2014 13:04-0400 BP Systolic 138 mm[Hg] Radha Garcia RN [facility] Work Phone: Comment on above: Patient Position: Sitting; Cuff Location : Left Arm; Cuff Size: Standard 11-01-2014 13:04-0400 BSA (Body Surface Area) 1.86 m2 Radha Garcia RN [facility] Work Phone: 11-01-2014 13:04-0400 Height 162.56 cm Radha Garcia RN [facility] Work Phone: 11-01-2014 13:04-0400 Pulse (Heart Rate) 72 /min Radha Garcia RN [facility] Work Phone: Comment on above: Pattern: Regular 11-01-2014 13:04-0400 Pulse Oximetry 98 % Ivon Lopez [facility] Work Phone: Comment on above: Room air 11-01-2014 13:04-0400 Respiratory Rate 16 /min Radha Garcia RN [facility] Work Phone: Comment on above: Pattern: Unlabored 11-01-2014 13:04-0400 SaO2% (BldA) [Mass fraction] 98 % Radha Garcia RN [facility]; [facility] Work Phone: 11-01-2014 13:04-0400 Weight 80.91 kg Ivon Lopez [facility] Work Phone: 03-18-2014 15:21-0500 BMI (Body Mass Index) 30.62 kg/m2 Ema Westfall RN [facility] Work Phone: 03-18-2014 15:21-0500 Body weight 80.91 kg Ema Westfall RN [facility] Work Phone: 03-18-2014 15:21-0500 BP Diastolic 82 mm[Hg] Ema Westfall RN [facility] Work Phone: Comment on above: Patient Position: Sitting; Cuff Location : Left Arm; Cuff Size: Standard 03-18-2014 15:21-0500 BP Systolic 142 mm[Hg] Ema Westfall RN [facility] Work Phone: Comment on above: Patient Position: Sitting; Cuff Location : Left Arm; Cuff Size: Standard 03-18-2014 15:21-0500 BSA (Body Surface Area) 1.86 m2 Ema Westfall RN [facility] Work Phone: 03-18-2014 15:21-0500 Height 162.56 cm Ema Westfall RN [facility] Work Phone: 03-18-2014 15:21-0500 Pulse (Heart Rate) 78 /min Ema Westfall RN [facility] Work Phone: Comment on above: Pattern: Regular 03-18-2014 15:21-0500 Pulse Oximetry 99 % Ivon John [facility] Work Phone: Comment on above: Room air 03-18-2014 15:21-0500 Respiratory Rate 20 /min Ema Wsetfall RN [facility] Work Phone: Comment on above: Pattern: Unlabored 03-18-2014 15:21-0500 SaO2% (BldA) [Mass fraction] 99 % Ema Westfall RN [facility]; [facility] Work Phone: 03-18-2014 15:21-0500 Weight 80.91 kg Ivon Lopez [facility] Work Phone: 01-04-2014 13:30-0400 BMI (Body Mass Index) 31.42 kg/m2 Ema Westfall RN [facility] Work Phone: 01-04-2014 13:30-0400 Body Temperature 98 [degF] Ema Westfall RN [facility] Work Phone: Comment on above: Method: Oral 01-04-2014 13:30-0400 Body weight 83.04 kg Ema Westfall RN [facility] Work Phone: 01-04-2014 13:30-0400 BP Diastolic 82 mm[Hg] Ema Westfall RN [facility] Work Phone: Comment on above: Patient Position: Sitting; Cuff Location : Left Arm; Cuff Size: Large 01-04-2014 13:30-0400 BP Systolic 122 mm[Hg] Ema Westfall RN [facility] Work Phone: Comment on above: Patient Position: Sitting; Cuff Location : Left Arm; Cuff Size: Large 01-04-2014 13:30-0400 BSA (Body Surface Area) 1.88 m2 Ema Westfall RN [facility] Work Phone: 01-04-2014 13:30-0400 Height 162.56 cm Ema Westfall RN [facility] Work Phone: 01-04-2014 13:30-0400 Pulse (Heart Rate) 95 /min Ema Westfall RN [facility] Work Phone: Comment on above: Pattern: Regular 01-04-2014 13:30-0400 Pulse Oximetry 97 % Ivon Bergeron [facility] Work Phone: Comment on above: Room air 01-04-2014 13:30-0400 Respiratory Rate 18 /min Ema Westfall RN [facility] Work Phone: Comment on above: Pattern: Unlabored 01-04-2014 13:30-0400 SaO2% (BldA) [Mass fraction] 97 % Ema Westfall RN [facility]; [facility] Work Phone: 01-04-2014 13:30-0400 Weight 83.04 kg Ivon Lopez [facility] Work Phone: 07-27-2013 13:00-0400 BMI (Body Mass Index) 37.08 kg/m2 Ema Westfall RN [facility] Work Phone: 07-27-2013 13:00-0400 Body weight 97.98 kg Ema Westfall RN [facility] Work Phone: 07-27-2013 13:00-0400 BP Diastolic 82 mm[Hg] Ema Westfall RN [facility] Work Phone: Comment on above: Patient Position: Sitting; Cuff Location : Left Arm; Cuff Size: Large 07-27-2013 13:00-0400 BP Systolic 128 mm[Hg] Ema Westfall RN [facility] Work Phone: Comment on above: Patient Position: Sitting; Cuff Location : Left Arm; Cuff Size: Large 07-27-2013 13:00-0400 BSA (Body Surface Area) 2.02 m2 Ema Westfall RN [facility] Work Phone: 07-27-2013 13:00-0400 Height 162.56 cm Ema Westfall RN [facility] Work Phone: 07-27-2013 13:00-0400 Pulse (Heart Rate) 80 /min Ema Westfall RN [facility] Work Phone: Comment on above: Pattern: Regular 07-27-2013 13:00-0400 Pulse Oximetry 98 % Ivon Lopez [facility] Work Phone: Comment on above: Room air 07-27-2013 13:00-0400 Respiratory Rate 20 /min Ema Westfall RN [facility] Work Phone: Comment on above: Pattern: Unlabored 07-27-2013 13:00-0400 SaO2% (BldA) [Mass fraction] 98 % Ema Westfall RN [facility]; [facility] Work Phone: 07-27-2013 13:00-0400 Weight 97.98 kg Ivon Lopez [facility] Work Phone: 07-24-2013 11:17-0400 BMI (Body Mass Index) 37.08 kg/m2 Selena Santillan [facility] Internal Medicine Work Phone: 07-24-2013 11:17-0400 Body Temperature 98.3 [degF] Selena Santillan [facility] Internal [facility] Work Phone: Comment on above: Method: Oral 07-24-2013 11:17-0400 Body weight 97.98 kg Selena Santillan [facility] Internal Medicine Work Phone: 07-24-2013 11:17-0400 BP Diastolic 78 mm[Hg] Selena Santillan [facility] Internal Medicine Work Phone: Comment on above: Patient Position: Sitting; Cuff Location : Left Arm; Cuff Size: Standard 07-24-2013 11:17-0400 BP Systolic 118 mm[Hg] Selena Santillan [facility] Internal Medicine Work Phone: Comment on above: Patient Position: Sitting; Cuff Location : Left Arm; Cuff Size: Standard 07-24-2013 11:17-0400 BSA (Body Surface Area) 2.02 m2 Selena Santillan [facility] Internal Medicine Work Phone: 07-24-2013 11:17-0400 Height 162.56 cm [facility]: 07-24-2013 11:17-0400 Pulse (Heart Rate) 83 /min Selena Santillan [facility] Internal Medicine Work Phone: Comment on above: Pattern: Regular 07-24-2013 11:17-0400 Pulse Oximetry 98 % Ivon John [facility] Internal Medicine Work Phone: Comment on above: Room air 07-24-2013 11:17-0400 Respiratory Rate 16 /min Selena Santillan [facility] Work Phone: Comment on above: Pattern: Unlabored 07-24-2013 11:17-0400 SaO2% (BldA) [Mass fraction] 98 % Selena Santillan [facility]; [facility] Work Phone: 07-24-2013 11:17-0400 Weight 97.98 kg Ivon Lopez [facility] Work Phone: 05-03-2013 13:48-0500 BMI (Body Mass Index) 36.9 kg/m2 ELMER Lester IVONNE [facility] Internal Medicine Work Phone: 05-03-2013 13:48-0500 Body Temperature 98.4 [degF] ELMER Lester [employer] [facility] Internal Medicine Work Phone: Comment on above: Method: Oral 05-03-2013 13:48-0500 Body weight 97.52 kg ELMER Lester [employer] [facility] Internal Medicine Work Phone: 05-03-2013 13:48-0500 BP Diastolic 78 mm[Hg] ELMER Lester [employer] [facility] Internal Medicine Work Phone: Comment on above: Patient Position: Sitting; Cuff Location : Left Arm; Cuff Size: Large 05-03-2013 13:48-0500 BP Systolic 144 mm[Hg] ELMER Lester [employer] [facility] Internal Medicine Work Phone: Comment on above: Patient Position: Sitting; Cuff Location : Left Arm; Cuff Size: Large 05-03-2013 13:48-0500 BSA (Body Surface Area) 2.02 m2 ELMER Lester IVONNE [facility] Internal Medicine Work Phone: 05-03-2013 13:48-0500 Height 162.56 cm ELMER Lester IVONNE [facility] Work Phone: 05-03-2013 13:48-0500 Pulse (Heart Rate) 76 /min ELMER Lester [employer] [facility] Work Phone: Comment on above: Pattern: Regular 05-03-2013 13:48-0500 Respiratory Rate 20 /min ELMER Trevon CORONADO [facility] Work Phone: Comment on above: Pattern: Unlabored 05-03-2013 13:48-0500 Weight 97.52 kg Ivon Lopez [facility] Work Phone: 01-26-2013 11:39-0400 BMI (Body Mass Index) 36.96 kg/m2 Ema Westfall RN [facility] Work Phone: 01-26-2013 11:39-0400 Body weight 97.67 kg Ema Westfall RN [facility] Work Phone: 01-26-2013 11:39-0400 BP Diastolic 78 mm[Hg] Ema Westfall RN [facility] Work Phone: Comment on above: Patient Position: Sitting; Cuff Location : Left Arm; Cuff Size: Large 01-26-2013 11:39-0400 BP Systolic 128 mm[Hg] Ema Westfall RN [facility] Work Phone: Comment on above: Patient Position: Sitting; Cuff Location : Left Arm; Cuff Size: Large 01-26-2013 11:39-0400 BSA (Body Surface Area) 2.02 m2 Ema Westfall RN [facility] Work Phone: 01-26-2013 11:39-0400 Height 162.56 cm Ema Westfall RN [facility] Work Phone: 01-26-2013 11:39-0400 Pulse (Heart Rate) 80 /min Ema Westfall RN [facility] Work Phone: Comment on above: Pattern: Regular 01-26-2013 11:39-0400 Respiratory Rate 20 /min Ema Westfall RN [facility] Work Phone: Comment on above: Pattern: Unlabored 01-26-2013 11:39-0400 Weight 97.67 kg Ivon Lopez [facility] Work Phone: 01-04-2013 14:08-0400 BMI (Body Mass Index) 37.14 kg/m2 Ema Westfall RN [facility] Work Phone: 01-04-2013 14:08-0400 Body Temperature 98 [degF] Ema Westfall RN [facility] Work Phone: Comment on above: Method: Oral 01-04-2013 14:08-0400 Body weight 98.15 kg Ema Westfall RN [facility] Work Phone: 01-04-2013 14:08-0400 BP Diastolic 78 mm[Hg] Ema Westfall RN [facility] Work Phone: Comment on above: Patient Position: Sitting; Cuff Location : Left Arm; Cuff Size: Large 01-04-2013 14:08-0400 BP Systolic 128 mm[Hg] Ema Westfall RN [facility] Work Phone: Comment on above: Patient Position: Sitting; Cuff Location : Left Arm; Cuff Size: Large 01-04-2013 14:08-0400 BSA (Body Surface Area) 2.02 m2 Eam Westfall RN [facility] Work Phone: 01-04-2013 14:08-0400 Height 162.56 cm Ema Westfall RN [facility] Work Phone: 01-04-2013 14:08-0400 Pulse (Heart Rate) 80 /min Ema Westfall RN [facility] Work Phone: Comment on above: Pattern: Regular 01-04-2013 14:08-0400 Respiratory Rate 20 /min Ema Westfall RN [facility] Work Phone: Comment on above: Pattern: Unlabored 01-04-2013 14:08-0400 Weight 98.15 kg Ivon Lopez [facility] Work Phone: 12-20-2012 11:28-0400 BMI (Body Mass Index) 38.13 kg/m2 Ema Westfall RN [facility] Work Phone: 12-20-2012 11:28-0400 Body Temperature 98.2 [degF] Ema Westfall RN [facility] Work Phone: Comment on above: Method: Tympanic 12-20-2012 11:28-0400 Body weight 100.76 kg Ema Westfall RN [facility] Work Phone: 12-20-2012 11:28-0400 BP Diastolic 82 mm[Hg] Ema Westfall RN [facility] Work Phone: Comment on above: Patient Position: Sitting; Cuff Location : Left Arm; Cuff Size: Large 12-20-2012 11:28-0400 BP Systolic 120 mm[Hg] Ema Westfall RN [facility] Work Phone: Comment on above: Patient Position: Sitting; Cuff Location : Left Arm; Cuff Size: Large 12-20-2012 11:28-0400 BSA (Body Surface Area) 2.05 m2 Ema Westfall RN [facility] Work Phone: 12-20-2012 11:28-040 Height 162.56 cm Ema Westfall RN [facility] Work Phone: 12-20-2012 11:28-040 Pulse (Heart Rate) 82 /min Ema Westfall RN [facility] Work Phone: Comment on above: Pattern: Regular 12-20-2012 11:28-0400 Respiratory Rate 16 /min Ema Westfall RN [facility] Work Phone: Comment on above: Pattern: Unlabored 12-20-2012 11:28-0400 Weight 100.76 kg Ivon Lopez [facility] Work Phone: 02-24-2012 13:22-0400 BMI (Body Mass Index) 36.23 kg/m2 Ema Westfall RN [facility] Work Phone: 02-24-2012 13:22-0400 Body weight 95.74 kg Ema Westfall RN [facility] Work Phone: 02-24-2012 13:22-0400 BP Diastolic 80 mm[Hg] Ema Westfall RN [facility] Work Phone: Comment on above: Patient Position: Sitting; Cuff Location : Left Arm; Cuff Size: Large 02-24-2012 13:22-0400 BP Systolic 120 mm[Hg] Ema Westfall RN [facility] Work Phone: Comment on above: Patient Position: Sitting; Cuff Location : Left Arm; Cuff Size: Large 02-24-2012 13:22-0400 BSA (Body Surface Area) 2 m2 Ema Westfall RN [facility] Work Phone: 02-24-2012 13:22-0400 Height 162.56 cm mEa Westfall RN [facility] Work Phone: 02-24-2012 13:22-0400 Pulse (Heart Rate) 80 /min Ema Westfall RN [facility] Work Phone: Comment on above: Pattern: Regular 02-24-2012 13:22-0400 Respiratory Rate 20 /min Ema Westfall RN [facility] Work Phone: Comment on above: Pattern: Unlabored 02-24-2012 13:22-0400 Weight 95.74 kg Ivon Lopez [facility] Work Phone: 02-07-2012 14:47-0400 BMI (Body Mass Index) 36.59 kg/m2 Ema Westfall RN [facility] Work Phone: 02-07-2012 14:47-0400 Body Temperature 98 [degF] Ema Westfall RN [facility] Work Phone: 02-07-2012 14:47-0400 Body weight 96.7 kg Ema Westfall RN [facility] Work Phone: 02-07-2012 14:47-0400 BP Diastolic 82 mm[Hg] Ema Westfall RN [facility] Work Phone: Comment on above: Patient Position: Sitting; Cuff Location : Left Arm; Cuff Size: Large 02-07-2012 14:47-0400 BP Systolic 120 mm[Hg] Ema Westfall RN [facility] Work Phone: Comment on above: Patient Position: Sitting; Cuff Location : Left Arm; Cuff Size: Large 02-07-2012 14:47-0400 BSA (Body Surface Area) 2.01 m2 Ema Westfall RN [facility] Work Phone: 02-07-2012 14:47-0400 Height 162.56 cm Ema Westfall RN [facility] Work Phone: 02-07-2012 14:47-0400 Pulse (Heart Rate) 60 /min Ema Westfall RN [facility] Work Phone: Comment on above: Pattern: Regular 02-07-2012 14:47-0400 Respiratory Rate 20 /min Ema Westfall RN [facility] Work Phone: Comment on above: Pattern: Unlabored 02-07-2012 14:47-0400 Weight 96.7 kg Ivon Lopez [facility] Work Phone: 01-25-2012 15:22-0400 BMI (Body Mass Index) 37.98 kg/m2 Vida Enriquezzti [employer] [facility] Work Phone: 01-25-2012 15:22-0400 Body Temperature 98.3 [degF] Vida Enriquezzti [employer] [facility] Work Phone: Comment on above: Method: Oral 01-25-2012 15:22-0400 Body weight 100.36 kg Vida Enriquezzti [employer] [facility] Work Phone: 01-25-2012 15:22-0400 BP Diastolic 78 mm[Hg] Vida Enriquezzti [employer] [facility] Work Phone: Comment on above: Patient Position: Sitting; Cuff Location : Left Arm; Cuff Size: Standard 01-25-2012 15:22-0400 BP Systolic 118 mm[Hg] Vida Enriquezzti [employer] [facility] Work Phone: Comment on above: Patient Position: Sitting; Cuff Location : Left Arm; Cuff Size: Standard 01-25-2012 15:22-0400 BSA (Body Surface Area) 2.04 m2 Vida Enriquezzti [employer] [facility] Work Phone: 01-25-2012 15:22-0400 Height 162.56 cm Vida Enriquezzti [employer] [facility] Work Phone: 01-25-2012 15:22-0400 Pulse (Heart Rate) 68 /min Vida Greeneuszti [employer] [facility] Work Phone: Comment on above: Pattern: Regular 01-25-2012 15:22-0400 Respiratory Rate 16 /min Vida Enriquezzti [employer] [facility] Work Phone: Comment on above: Pattern: Unlabored 01-25-2012 15:22-0400 Weight 100.36 kg Ivon Lopez [facility] Work Phone: 01-25-2012 15:19-0400 BMI (Body Mass Index) 37.98 kg/m2 Vida Barksdale [employer] [facility] Work Phone: 01-25-2012 15:19-0400 Body weight 100.36 kg Vida Barksdale [employer] [facility] Work Phone: 01-25-2012 15:19-0400 BSA (Body Surface Area) 2.04 m2 Vida Barksdale [employer] [facility] Work Phone: 01-25-2012 15:-0400 Height 162.56 cm Vida Barksdale [employer] [facility] Work Phone: 01-25-2012 15:19-0400 Weight 100.36 kg Ivon Lopez [facility] Work Phone: 01-13-2012 13:29-0400 BMI (Body Mass Index) 37.97 kg/m2 Ema Westfall RN [facility] Work Phone: 01-13-2012 13:29-0400 Body weight 100.33 kg Ema Westfall RN [facility] Work Phone: 01-13-2012 13:29-0400 BP Diastolic 82 mm[Hg] Ema Westfall RN [facility] Work Phone: Comment on above: Patient Position: Sitting; Cuff Location : Left Arm; Cuff Size: Large 01-13-2012 13:29-0400 BP Systolic 122 mm[Hg] Ema Westfall RN [facility] Work Phone: Comment on above: Patient Position: Sitting; Cuff Location : Left Arm; Cuff Size: Large 01-13-2012 13:29-0400 BSA (Body Surface Area) 2.04 m2 Ema Westfall RN [facility] Work Phone: 01-13-2012 13:29-0400 Height 162.56 cm Ema Westfall RN [facility] Work Phone: 01-13-2012 13:29-0400 Pulse (Heart Rate) 60 /min Ema Westfall RN [facility] Work Phone: Comment on above: Pattern: Regular 01-13-2012 13:29-0400 Respiratory Rate 20 /min Ema Westfall RN [facility] Work Phone: Comment on above: Pattern: Unlabored 01-13-2012 13:29-0400 Weight 100.33 kg Ivon Lopez [facility] Work Phone: 12-24-2011 14:37-0400 BMI (Body Mass Index) 38.45 kg/m2 Ema Westfall RN [facility] Work Phone: 12-24-2011 14:37-0400 Body weight 101.61 kg Ema Westfall RN [facility] Work Phone: 12-24-2011 14:37-0400 BP Diastolic 76 mm[Hg] Ema Westfall RN [facility] Work Phone: 12-24-2011 14:37-0400 BP Systolic 132 mm[Hg] Ema Westfall RN [facility] Work Phone: 12-24-2011 14:37-0400 BSA (Body Surface Area) 2.05 m2 Ema Westfall RN [facility] Work Phone: 12-24-2011 14:37-0400 Height 162.56 cm Ema Westfall RN [facility] Work Phone: 12-24-2011 14:37-0400 Pulse (Heart Rate) 80 /min Ema Westfall RN [facility] Work Phone: Comment on above: Pattern: Regular 12-24-2011 14:37-0400 Respiratory Rate 20 /min Ema Westfall RN [facility] Work Phone: Comment on above: Pattern: Unlabored 12-24-2011 14:37-0400 Weight 101.61 kg Ivon Lopez [facility] Work Phone: 12-10-2011 14:22-0400 BMI (Body Mass Index) 38.45 kg/m2 ELMER Lester LPN [facility] Work Phone: 12-10-2011 14:22-0400 Body Temperature 98.2 [degF] ELMER Lester LPN [facility] Work Phone: Comment on above: Method: Oral 12-10-2011 14:0400 Body weight 101.61 kg ELMER Lester LPN [facility] Work Phone: 12-10-2011 14:22-0400 BP Diastolic 80 mm[Hg] ELMER Lester LPN [facility] Work Phone: Comment on above: Patient Position: Sitting; Cuff Location : Left Arm; Cuff Size: Large 12-10-2011 14:22-0400 BP Systolic 124 mm[Hg] ELMER Lester LPN [facility] Work Phone: Comment on above: Patient Position: Sitting; Cuff Location : Left Arm; Cuff Size: Large 12-10-2011 14:-0400 BSA (Body Surface Area) 2.05 m2 ELMER Lester LPN [facility] Work Phone: 12-10-2011 14:22-0400 Height 162.56 cm ELMER Lester LPN [facility] Work Phone: 12-10-2011 14:22-0400 Pulse (Heart Rate) 68 /min ELMER Lester LPN [facility] Work Phone: Comment on above: Pattern: Regular 12-10-2011 14:22-0400 Respiratory Rate 18 /min ELMER Lester LPN [facility] Work Phone: Comment on above: Pattern: Unlabored 12-10-2011 14:22-0400 Weight 101.61 kg Ivon Lopez [facility] Work Phone: 07-27-2011 15:13-0400 BMI (Body Mass Index) 36.73 kg/m2 ELMER Lester LPN [facility] Work Phone: 07-27-2011 15:13-0400 Body Temperature 97.9 [degF] ELMER Lester LPN [facility] Work Phone: Comment on above: Method: Oral 07-27-2011 15:130400 Body weight 97.07 kg ELMER Lester LPN [facility] Work Phone: 07-27-2011 15:13-0400 BP Diastolic 78 mm[Hg] ELMER Lester LPN [facility] Work Phone: Comment on above: Patient Position: Sitting; Cuff Location : Left Arm; Cuff Size: Large 07-27-2011 15:13-0400 BP Systolic 124 mm[Hg] ELMER Lester IVONNE [facility] Work Phone: Comment on above: Patient Position: Sitting; Cuff Location : Left Arm; Cuff Size: Large 07-27-2011 15:13-0400 BSA (Body Surface Area) 2.01 m2 ELMER Lester IVONNE [facility] Work Phone: 07-27-2011 15:13-0400 Height 162.56 cm ELMER Trevon CORONADO [facility] Work Phone: 07-27-2011 15:13-0400 Pulse (Heart Rate) 70 /min ELMER Lester IVONNE [facility] Work Phone: Comment on above: Pattern: Regular 07-27-2011 15:13-0400 Respiratory Rate 18 /min ELMER Lester IVONNE [facility] Work Phone: Comment on above: Pattern: Unlabored 07-27-2011 15:13-0400 Weight 97.07 kg Ivon Lopez [facility] Work Phone: 05-25-2011 12:57-0500 BMI (Body Mass Index) 35.19 kg/m2 Radha Garcia RN [facility] Work Phone: 05-25-2011 12:57-0500 Body Temperature 98.6 [degF] Radha Garcia RN [facility] Work Phone: Comment on above: Method: Oral 05-25-2011 12:57-0500 Body weight 92.99 kg Radha Garcia RN [facility] Work Phone: 05-25-2011 12:57-0500 BP Diastolic 76 mm[Hg] Radha Garcia RN [facility] Work Phone: Comment on above: Patient Position: Sitting; Cuff Location : Left Arm; Cuff Size: Standard 05-25-2011 12:57-0500 BP Systolic 120 mm[Hg] Radha Garcia RN [facility] Work Phone: Comment on above: Patient Position: Sitting; Cuff Location : Left Arm; Cuff Size: Standard 05-25-2011 12:57-0500 BSA (Body Surface Area) 1.98 m2 Radha Garcia RN [facility] Work Phone: 05-25-2011 12:57-0500 Height 162.56 cm Radha Garcia RN [facility] Work Phone: 05-25-2011 12:57-0500 Pulse (Heart Rate) 88 /min Radha Garcia RN [facility] Work Phone: Comment on above: Pattern: Regular 05-25-2011 12:57-0500 Respiratory Rate 16 /min Radha Garcia RN [facility] Work Phone: Comment on above: Pattern: Unlabored 05-25-2011 12:57-0500 Weight 92.99 kg Ivon Lopez [facility] Work Phone: 02-16-2011 15:16-0400 BMI (Body Mass Index) 35.19 kg/m2 ELMER Lester LPN [facility] Work Phone: 02-16-2011 15:16-0400 Body Temperature 97.6 [degF] ELMER Lester LPN [facility] Work Phone: Comment on above: Method: Oral 02-16-2011 15:16-0400 Body weight 92.99 kg ELMER Lester LPN [facility] Work Phone: 02-16-2011 15:16-0400 BP Diastolic 74 mm[Hg] ELMER Lester LPN [facility] Work Phone: Comment on above: Patient Position: Sitting; Cuff Location : Left Arm; Cuff Size: Large 02-16-2011 15:16-0400 BP Systolic 118 mm[Hg] ELMER Lester LPN [facility] Work Phone: Comment on above: Patient Position: Sitting; Cuff Location : Left Arm; Cuff Size: Large 02-16-2011 15:16-0400 BSA (Body Surface Area) 1.98 m2 ELMER Lester LPN [facility] Work Phone: 02-16-2011 15:16-0400 Height 162.56 cm ELMER Lester LPN [facility] Work Phone: 02-16-2011 15:16-0400 Pulse (Heart Rate) 70 /min ELMER Lester LPN [facility] Work Phone: Comment on above: Pattern: Regular 02-16-2011 15:16-0400 Respiratory Rate 18 /min ELMER Lester LPN [facility] Work Phone: Comment on above: Pattern: Unlabored 02-16-2011 15:16-0400 Weight 92.99 kg Ivon Lopez [facility] Work Phone: 02-02-2011 15:23-0400 BMI (Body Mass Index) 35.19 kg/m2 ELMER Lester LPN [facility] Work Phone: 02-02-2011 15:23-0400 Body Temperature 97.6 [degF] ELMER Lester LPN [facility] Work Phone: Comment on above: Method: Oral 02-02-2011 15:23-0400 Body weight 92.99 kg ELMER Lester LPN [facility] Work Phone: 02-02-2011 15:23-0400 BP Diastolic 76 mm[Hg] ELMER Lester LPN [facility] Work Phone: Comment on above: Patient Position: Sitting; Cuff Location : Left Arm; Cuff Size: Standard 02-02-2011 15:23-0400 BP Systolic 114 mm[Hg] ELMER Lester LPN [facility] Work Phone: Comment on above: Patient Position: Sitting; Cuff Location : Left Arm; Cuff Size: Standard 02-02-2011 15:23-0400 BSA (Body Surface Area) 1.98 m2 ELMER Lester LPN [facility] Work Phone: 02-02-2011 15:23-0400 Height 162.56 cm ELMER Lester LPN [facility] Work Phone: 02-02-2011 15:23-0400 Pulse (Heart Rate) 70 /min ELMER Lester LPN [facility] Work Phone: Comment on above: Pattern: Regular 02-02-2011 15:23-0400 Respiratory Rate 18 /min ELMER Trevon CORONADO [facility] Work Phone: Comment on above: Pattern: Unlabored 02-02-2011 15:23-0400 Weight 92.99 kg Ivon Lopez [facility] Work Phone: 01-05-2011 15:47-0400 BMI (Body Mass Index) 35.29 kg/m2 Radha Garcia RN [facility] Work Phone: 01-05-2011 15:47-0400 Body Temperature 98.3 [degF] Radha Garcia RN [facility] Work Phone: Comment on above: Method: Oral 01-05-2011 15:47-0400 Body weight 93.26 kg Radha Garcia RN [facility] Work Phone: 01-05-2011 15:47-0400 BP Diastolic 74 mm[Hg] Radha Garcia RN [facility] Work Phone: Comment on above: Patient Position: Sitting; Cuff Location : Left Arm; Cuff Size: Standard 01-05-2011 15:47-0400 BP Systolic 110 mm[Hg] Radha Garcia RN [facility] Work Phone: Comment on above: Patient Position: Sitting; Cuff Location : Left Arm; Cuff Size: Standard 01-05-2011 15:47-0400 BSA (Body Surface Area) 1.98 m2 Radha Garcia RN [facility] Work Phone: 01-05-2011 15:47-0400 Height 162.56 cm Radha Garcia RN [facility] Work Phone: 01-05-2011 15:47-0400 Pulse (Heart Rate) 64 /min Radha Garcia RN [facility] Work Phone: Comment on above: Pattern: Regular 01-05-2011 15:47-0400 Respiratory Rate 16 /min Radha Garcia RN [facility] Work Phone: Comment on above: Pattern: Unlabored 01-05-2011 15:47-0400 Weight 93.26 kg Ivon Lopez [facility] Work Phone: 12-07-2010 13:21-0400 BMI (Body Mass Index) 36.22 kg/m2 ELMER Lester LPN [facility] Work Phone: 12-07-2010 13:21-0400 Body Temperature 97.6 [degF] ELMER Lester LPN [facility] Work Phone: Comment on above: Method: Oral 12-07-2010 13:21-0400 Body weight 95.71 kg ELMER Lester LPN [facility] Work Phone: 12-07-2010 13:21-0400 BP Diastolic 90 mm[Hg] ELMER Lester LPN [facility] Work Phone: Comment on above: Patient Position: Sitting; Cuff Location : Left Arm; Cuff Size: Standard 12-07-2010 13:21-0400 BP Systolic 128 mm[Hg] ELMER Lester LPN [facility] Work Phone: Comment on above: Patient Position: Sitting; Cuff Location : Left Arm; Cuff Size: Standard 12-07-2010 13:21-0400 BSA (Body Surface Area) 2 m2 ELMER Lester LPN [facility] Work Phone: 12-07-2010 13:21-0400 Height 162.56 cm ELMER Lester LPN [facility] Work Phone: 12-07-2010 13:21-0400 Pulse (Heart Rate) 78 /min ELMER Lester LPN [facility] Work Phone: Comment on above: Pattern: Regular 12-07-2010 13:21-0400 Respiratory Rate 18 /min ELMER Lester LPN [facility] Work Phone: Comment on above: Pattern: Unlabored 12-07-2010 13:21-0400 Weight 95.71 kg Ivon Lopez [facility] Work Phone: 09-03-2010 13:16-0400 BMI (Body Mass Index) 36.31 kg/m2 Ema Westfall RN [facility] Work Phone: 09-03-2010 13:16-0400 Body weight 95.96 kg Ema Westfall RN [facility] Work Phone: 09-03-2010 13:16-0400 BP Diastolic 70 mm[Hg] Ema Westfall RN [facility] Work Phone: Comment on above: Patient Position: Sitting; Cuff Location : Left Arm; Cuff Size: Large 09-03-2010 13:16-0400 BP Systolic 110 mm[Hg] Ema Westfall RN [facility] Work Phone: Comment on above: Patient Position: Sitting; Cuff Location : Left Arm; Cuff Size: Large 09-03-2010 13:16-0400 BSA (Body Surface Area) 2 m2 Ema Westfall RN [facility] Work Phone: 09-03-2010 13:16-0400 Height 162.56 cm Ema Westfall RN [facility] Work Phone: 09-03-2010 13:16-0400 Pulse (Heart Rate) 64 /min Ema Westfall RN [facility] Work Phone: Comment on above: Pattern: Regular 09-03-2010 13:16-0400 Respiratory Rate 20 /min Ema Westfall RN [facility] Work Phone: Comment on above: Pattern: Unlabored 09-03-2010 13:16-0400 Weight 95.96 kg Ivon Lopez [facility] Work Phone: 08-21-2010 14:06-0400 BMI (Body Mass Index) 36.73 kg/m2 Ema Westfall RN [facility] Work Phone: 08-21-2010 14:06-0400 Body weight 97.07 kg Ema Westfall RN [facility] Work Phone: 08-21-2010 14:06-0400 BP Diastolic 70 mm[Hg] Ema Westfall RN [facility] Work Phone: Comment on above: Patient Position: Sitting; Cuff Location : Left Arm; Cuff Size: Large 08-21-2010 14:06-0400 BP Systolic 118 mm[Hg] Ema Westfall RN [facility] Work Phone: Comment on above: Patient Position: Sitting; Cuff Location : Left Arm; Cuff Size: Large 08-21-2010 14:060400 BSA (Body Surface Area) 2.01 m2 Ema Westfall RN [facility] Work Phone: 08-21-2010 14:060400 Height 162.56 cm Ema Westfall RN [facility] Work Phone: 08-21-2010 14:06-0400 Pulse (Heart Rate) 60 /min Ema Westfall RN [facility] Work Phone: Comment on above: Pattern: Regular 08-21-2010 14:06-0400 Respiratory Rate 20 /min Ema Westfall RN [facility] Work Phone: Comment on above: Pattern: Unlabored 08-21-2010 14:06-0400 Weight 97.07 kg Ivon Lopez [facility] Work Phone: 08-07-2010 14:12-0400 BMI (Body Mass Index) 37.31 kg/m2 Ema Westfall RN [facility] Work Phone: 08-07-2010 14:12-0400 Body weight 98.6 kg Ema Westfall RN [facility] Work Phone: 08-07-2010 14:12-0400 BP Diastolic 82 mm[Hg] Ema Westfall RN [facility] Work Phone: Comment on above: Patient Position: Sitting; Cuff Location : Left Arm; Cuff Size: Large 08-07-2010 14:12-0400 BP Systolic 120 mm[Hg] Ema Westfall RN [facility] Work Phone: Comment on above: Patient Position: Sitting; Cuff Location : Left Arm; Cuff Size: Large 08-07-2010 14:12-0400 BSA (Body Surface Area) 2.03 m2 Ema Westfall RN [facility] Work Phone: 08-07-2010 14:12-0400 Height 162.56 cm Ema Westfall RN [facility] Work Phone: 08-07-2010 14:12-0400 Pulse (Heart Rate) 74 /min Ema Westfall RN [facility] Work Phone: Comment on above: Pattern: Regular 08-07-2010 14:12-0400 Respiratory Rate 18 /min Ema Westfall RN [facility] Work Phone: Comment on above: Pattern: Unlabored 08-07-2010 14:12-0400 Weight 98.6 kg Ivon Lopez [facility] Work Phone: 04-01-2010 14:00-0500 Body surface area Derived from formula m2 Ivon Lopez [facility] Work Phone: Comment on above: Status of Immunity Anti-HBs Level ------ Inconsistent with Immunity 0.00 - 0.99 Consistent with Immunity >0.99 . An Index Value of 1.00 is equivalent to 10 mIU/mL. However the magnitude of the Index Value is not indicative of the total amount of antibody present.Performed at: [address] [id number] Director: Radha Seals MD, Phone: [phone] 03-30-2010 16:28-0500 BMI (Body Mass Index) 40.38 kg/m2 Ema Westfall RN [facility] Work Phone: 03-30-2010 16:28-0500 Body weight 106.71 kg Ema Westfall RN [facility] Work Phone: 03-30-2010 16:28-0500 BP Diastolic 98 mm[Hg] Ema Westfall RN [facility] Work Phone: Comment on above: Patient Position: Sitting; Cuff Location : Left Arm; Cuff Size: Standard 03-30-2010 16:28-0500 BP Systolic 122 mm[Hg] Ema Westfall RN [facility] Work Phone: Comment on above: Patient Position: Sitting; Cuff Location : Left Arm; Cuff Size: Standard 03-30-2010 16:28-0500 BSA (Body Surface Area) 2.1 m2 Ema Westfall RN [facility] Work Phone: 03-30-2010 16:28-0500 Height 162.56 cm Ema Westfall RN [facility] Work Phone: 03-30-2010 16:28-0500 Pulse (Heart Rate) 64 /min Ema Westfall RN [facility] Work Phone: Comment on above: Pattern: Regular 03-30-2010 16:28-0500 Respiratory Rate 20 /min Ema Westfall RN [facility] Work Phone: Comment on above: Pattern: Unlabored 03-30-2010 16:28-0500 Weight 106.71 kg Ivon Lopez [facility] Work Phone: 01-07-2010 14:51-0400 BMI (Body Mass Index) 39.23 kg/m2 Ema Westfall RN [facility] Work Phone: 01-07-2010 14:51-0400 Body weight 103.68 kg Ema Westfall RN [facility] Work Phone: 01-07-2010 14:51-0400 BP Diastolic 88 mm[Hg] Ema Westfall RN [facility] Work Phone: Comment on above: Patient Position: Sitting; Cuff Location : Left Arm; Cuff Size: Large 01-07-2010 14:51-0400 BP Systolic 142 mm[Hg] Ema Westfall RN [facility] Work Phone: Comment on above: Patient Position: Sitting; Cuff Location : Left Arm; Cuff Size: Large 01-07-2010 14:51-0400 BSA (Body Surface Area) 2.07 m2 Ema Westfall RN [facility] Work Phone: 01-07-2010 14:51-0400 Height 162.56 cm Ema Westfall RN [facility] Work Phone: 01-07-2010 14:51-0400 Pulse (Heart Rate) 64 /min Ema Westfall RN [facility] Work Phone: Comment on above: Pattern: Regular 01-07-2010 14:51-0400 Respiratory Rate 20 /min Ema Westfall RN [facility] Work Phone: Comment on above: Pattern: Unlabored 01-07-2010 14:51-0400 Weight 103.68 kg Ivon Lopez [facility] Work Phone: 12-04-2009 14:15-0400 BP Diastolic 96 mm[Hg] Thais Can RN [facility] Work Phone: Comment on above: Patient Position: Sitting; Cuff Location : Left Arm; Cuff Size: Large 12-04-2009 14:15-0400 BP Systolic 150 mm[Hg] Thais Can RN [facility] Work Phone: Comment on above: Patient Position: Sitting; Cuff Location : Left Arm; Cuff Size: Large 12-04-2009 14:15-0400 Pulse (Heart Rate) 84 /min Thais Can RN [facility] Work Phone: Comment on above: Pattern: Regular 12-04-2009 14:15-0400 Respiratory Rate 16 /min Thais Can RN [facility] Work Phone: Comment on above: Pattern: Unlabored 10-27-2009 15:37-0400 Body Temperature 97.8 [degF] [facility] Work Phone: Comment on above: Method: Oral 10-27-2009 15:37-0400 Body weight 103.93 kg [facility] Work Phone: 10-27-2009 15:37-0400 BP Diastolic 80 mm[Hg] [facility] Work Phone: Comment on above: Patient Position: Sitting; Cuff Location : Left Arm; Cuff Size: Large 10-27-2009 15:37-0400 BP Systolic 122 mm[Hg] [facility] Work Phone: Comment on above: Patient Position: Sitting; Cuff Location : Left Arm; Cuff Size: Large 10-27-2009 15:37-0400 Pulse (Heart Rate) 64 /min [facility] Work Phone: Comment on above: Pattern: Regular 10-27-2009 15:37-0400 Respiratory Rate 18 /min [facility] Work Phone: Comment on above: Pattern: Unlabored 10-27-2009 15:37-0400 Weight 103.93 kg Ivon John [facility] Work Phone: 08-21-2009 13:01-0400 BMI (Body Mass Index) 39.15 kg/m2 Ema Westfall RN [facility] Work Phone: 08-21-2009 13:01-0400 Body weight 103.45 kg Ema Westfall RN [facility] Work Phone: 08-21-2009 13:01-0400 BP Diastolic 98 mm[Hg] Ema Westfall RN [facility] Work Phone: Comment on above: Patient Position: Sitting; Cuff Location : Left Arm; Cuff Size: Large 08-21-2009 13:01-0400 BP Systolic 140 mm[Hg] Ema Westfall RN [facility] Work Phone: Comment on above: Patient Position: Sitting; Cuff Location : Left Arm; Cuff Size: Large 08-21-2009 13:01-0400 BSA (Body Surface Area) 2.07 m2 Ema Westfall RN [facility] Work Phone: 08-21-2009 13:01-0400 Height 162.56 cm Ema Westfall RN [facility] Work Phone: 08-21-2009 13:01-0400 Pulse (Heart Rate) 88 /min Ema Westfall RN [facility] Work Phone: Comment on above: Pattern: Regular 08-21-2009 13:01-0400 Respiratory Rate 20 /min Ema Westfall RN [facility] Work Phone: Comment on above: Pattern: Unlabored 08-21-2009 13:01-0400 Weight 103.45 kg Ivon John [facility] Work Phone: 06-06-2009 14:00-0500 BP Diastolic 86 mm[Hg] ELMER Lester LPN [facility] Work Phone: Comment on above: Patient Position: Sitting; Cuff Location : Left Arm; Cuff Size: Standard 06-06-2009 14:00-0500 BP Systolic 144 mm[Hg] ELMER Lester LPN [facility] Work Phone: Comment on above: Patient Position: Sitting; Cuff Location : Left Arm; Cuff Size: Standard 06-06-2009 14:00-0500 Pulse (Heart Rate) 80 /min ELMER Lester LPN [facility] Work Phone: Comment on above: Pattern: Regular 06-06-2009 14:00-0500 Respiratory Rate 18 /min ELMER Lester LPN [facility] Work Phone: Comment on above: Pattern: Unlabored 04-28-2009 16:18-0500 BMI (Body Mass Index) 39.15 kg/m2 Ema Westfall RN [facility] Work Phone: 04-28-2009 16:18-0500 Body weight 103.45 kg Ema Westfall RN [facility] Work Phone: 04-28-2009 16:18-0500 BP Diastolic 88 mm[Hg] Ema Westfall RN [facility] Work Phone: Comment on above: Patient Position: Sitting; Cuff Location : Left Arm; Cuff Size: Large 04-28-2009 16:18-0500 BP Systolic 142 mm[Hg] Ema Westfall RN [facility] Work Phone: Comment on above: Patient Position: Sitting; Cuff Location : Left Arm; Cuff Size: Large 04-28-2009 16:18-0500 BSA (Body Surface Area) 2.07 m2 Ema Westfall RN [facility] Work Phone: 04-28-2009 16:18-0500 Head Circumference 0 cm Ivon John [facility] Work Phone: 04-28-2009 16:18-0500 Head Occipital-frontal circumference 0 cm Ema Westfall RN [facility]; [facility] Work Phone: 04-28-2009 16:18-0500 Height 162.56 cm Ema Westfall RN [facility] Work Phone: 04-28-2009 16:18-0500 Pulse (Heart Rate) 80 /min Ema Westfall RN [facility] Work Phone: Comment on above: Pattern: Regular 04-28-2009 16:18-0500 Respiratory Rate 20 /min Ema Westfall RN [facility] Work Phone: Comment on above: Pattern: Unlabored 04-28-2009 16:18-0500 Weight 103.45 kg Ivon Lopez [facility] Work Phone: 11-22-2008 14:22-0400 Body weight 107.5 kg ELMER Lester LPN [facility] Work Phone: 11-22-2008 14:22-0400 BP Diastolic 84 mm[Hg] ELMER Lester LPN [facility] Work Phone: Comment on above: Patient Position: Sitting; Cuff Location : Left Arm; Cuff Size: Large 11-22-2008 14:22-0400 BP Systolic 132 mm[Hg] ELMER Lester LPN [facility] Work Phone: Comment on above: Patient Position: Sitting; Cuff Location : Left Arm; Cuff Size: Large 11-22-2008 14:22-0400 Head Circumference 0 cm Ivon Lopez [facility] Work Phone: 11-22-2008 14:22-0400 Head Occipital-frontal circumference 0 cm ELMER Lester LPN [facility]; [facility] Work Phone: 11-22-2008 14:22-0400 Height 0 cm ELMER Lester LPN [facility] Work Phone: 11-22-2008 14:22-0400 Pulse (Heart Rate) 76 /min ELMER Lester LPN [facility] Work Phone: Comment on above: Pattern: Regular 11-22-2008 14:22-0400 Respiratory Rate 16 /min ELMER Lester LPN [facility] Work Phone: Comment on above: Pattern: Unlabored 11-22-2008 14:22-0400 Weight 107.5 kg Ivon Lopez [facility] Work Phone: 07-25-2008 15:52-0400 Body Temperature 97.7 [degF] Thais Can RN [facility] Work Phone: Comment on above: Method: Oral 07-25-2008 15:52-0400 Body weight 0 kg Thais Can RN [facility] Work Phone: 07-25-2008 15:52-0400 BP Diastolic 90 mm[Hg] Thais Can RN [facility] Work Phone: Comment on above: Patient Position: Sitting; Cuff Location : Left Arm; Cuff Size: Large 07-25-2008 15:52-0400 BP Systolic 150 mm[Hg] Thais Can RN [facility] Work Phone: Comment on above: Patient Position: Sitting; Cuff Location : Left Arm; Cuff Size: Large 07-25-2008 15:52-0400 Head Circumference 0 cm Ivon Bergeron [facility] Work Phone: 07-25-2008 15:52-0400 Head Occipital-frontal circumference 0 cm Thais Can RN [facility]; [facility] Work Phone: 07-25-2008 15:52-0400 Height 0 cm Thais Can RN [facility] Work Phone: 07-25-2008 15:52-0400 Pulse (Heart Rate) 76 /min Thais Can RN [facility] Work Phone: Comment on above: Pattern: Regular 07-25-2008 15:52-0400 Pulse Oximetry 99 % Ivon Bergeron [facility] Work Phone: Comment on above: Room air 07-25-2008 15:52-0400 Respiratory Rate 16 /min Thais Can RN [facility] Work Phone: Comment on above: Pattern: Unlabored 07-25-2008 15:52-0400 SaO2% (BldA) [Mass fraction] 99 % Thais Can RN [facility]; [facility] Work Phone: 07-25-2008 15:52-0400 Weight 0 kg Ivon Bergeron [facility] Work Phone: 07-01-2008 14:24-0500 BMI (Body Mass Index) 38.81 kg/m2 Ema Westfall RN [facility] Work Phone: 07-01-2008 14:24-0500 Body Temperature 98.8 [degF] Ema Westfall RN [facility] Work Phone: Comment on above: Method: Oral 07-01-2008 14:24-0500 Body weight 102.57 kg Ema Westfall RN [facility] Work Phone: 07-01-2008 14:24-0500 BP Diastolic 82 mm[Hg] Ema Westfall RN [facility] Work Phone: Comment on above: Patient Position: Sitting; Cuff Location : Left Arm; Cuff Size: Large 07-01-2008 14:24-0500 BP Systolic 132 mm[Hg] Ema Westfall RN [facility] Work Phone: Comment on above: Patient Position: Sitting; Cuff Location : Left Arm; Cuff Size: Large 07-01-2008 14:24-0500 BSA (Body Surface Area) 2.06 m2 Ema Westfall RN [facility] Work Phone: 07-01-2008 14:24-0500 Head Circumference 0 cm Ivon Lopez [facility] Work Phone: 07-01-2008 14:24-0500 Head Occipital-frontal circumference 0 cm Ema Westfall RN [facility]; [facility] Work Phone: 07-01-2008 14:24-0500 Height 162.56 cm Ema Westfall RN [facility] Work Phone: 07-01-2008 14:24-0500 Pulse (Heart Rate) 60 /min Ema Westfall RN [facility] Work Phone: Comment on above: Pattern: Regular 07-01-2008 14:24-0500 Respiratory Rate 20 /min Ema Westfall RN [facility] Work Phone: Comment on above: Pattern: Unlabored 07-01-2008 14:24-0500 Weight 102.57 kg Ivon Lopez [facility] Work Phone: 02-01-2008 15:17-0400 BMI (Body Mass Index) 38.81 kg/m2 Mackenzie Bessie [facility] Work Phone: 02-01-2008 15:17-0400 Body weight 102.57 kg Mackenzie Bessie [facility] Work Phone: 02-01-2008 15:17-0400 BP Diastolic 80 mm[Hg] Mackenzie Bessie [facility] Work Phone: Comment on above: Patient Position: Sitting; Cuff Location : Left Arm; Cuff Size: Standard 02-01-2008 15:17-0400 BP Systolic 142 mm[Hg] [facility] Work Phone: Comment on above: Patient Position: Sitting; Cuff Location : Left Arm; Cuff Size: Standard 02-01-2008 15:17-0400 BSA (Body Surface Area) 2.06 m2 [facility] Work Phone: 02-01-2008 15:17-0400 Head Circumference 0 cm Ivon [facility] Work Phone: 02-01-2008 15:17-0400 Head Occipital-frontal circumference 0 cm [facility]; [facility] Work Phone: 02-01-2008 15:17-0400 Height 162.56 cm [facility] Work Phone: 02-01-2008 15:17-0400 Respiratory Rate 16 /min [facility] Work Phone: Comment on above: Pattern: Unlabored 02-01-2008 15:17-0400 Weight 102.57 kg [facility]von [facility] Work Phone: 11-23-2007 15:50-0400 Body weight 103.[address] [facility] Work Phone: 11-23-2007 15:50-0400 BP Diastolic 82 mm[Hg] [facility] Work Phone: Comment on above: Patient Position: Sitting; Cuff Location : Left Arm; Cuff Size: Large 11-23-2007 15:50-0400 BP Systolic 130 mm[Hg] [facility] Work Phone: Comment on above: Patient Position: Sitting; Cuff Location : Left Arm; Cuff Size: Large 11-23-2007 15:50-0400 Head Circumference 0 cm [facility]von [facility] [employer] [facility] Work Phone: 11-23-2007 15:50-0400 Head Occipital-frontal circumference 0 cm [facility]; [facility] Work Phone: 11-23-2007 15:50-0400 Height 0 cm Jocelin [facility] Work Phone: 11-23-2007 15:50-0400 Pulse (Heart Rate) 78 /min Jocelin [facility] Work Phone: Comment on above: Pattern: Regular 11-23-2007 15:50-0400 Respiratory Rate 18 /min Jocelin Or[facility]ga [facility] Work Phone: Comment on above: Pattern: Unlabored 11-23-2007 15:50-0400 Weight 103.45 kg Ivon Lopez [facility] Work Phone: 06-19-2007 15:52-0500 Body Temperature 97.6 [degF] ELMER Lester [employer] [facility] Work Phone: Comment on above: Method: Oral 06-19-2007 15:52-0500 Body weight 0 kg ELMER Lester [employer] [facility] Work Phone: 06-19-2007 15:52-0500 BP Diastolic 78 mm[Hg] ELMER Lester [facility] Work Phone: Comment on above: Patient Position: Sitting; Cuff Location : Left Arm; Cuff Size: Standard 06-19-2007 15:52-0500 BP Systolic 120 mm[Hg] ELMER Lester [employer] [facility] Work Phone: Comment on above: Patient Position: Sitting; Cuff Location : Left Arm; Cuff Size: Standard 06-19-2007 15:52-0500 Head Circumference 0 cm Ivon Lopez [facility] Work Phone: 06-19-2007 15:52-0500 Head Occipital-frontal circumference 0 cm ELMER Lester LPN [facility]; [facility] Work Phone: 06-19-2007 15:52-0500 Height 0 cm ELMER Lester LPN [facility] Work Phone: 06-19-2007 15:52-0500 Pulse (Heart Rate) 74 /min ELMER Lester [facility] Work Phone: Comment on above: Pattern: Regular 06-19-2007 15:52-0500 Respiratory Rate 18 /min ELMER Lester LPN [facility] Work Phone: Comment on above: Pattern: Unlabored 06-19-2007 15:52-0500 Weight 0 kg Ivon Lopez [facility] Work Phone: 04-03-2007 13:18-0500 Body Temperature 98.6 [degF] ELMER Lester LPN [facility] Work Phone: Comment on above: Method: Oral 04-03-2007 13:18-0500 Body weight 0 kg ELMER Lseter LPN [facility] Work Phone: 04-03-2007 13:18-0500 BP Diastolic 80 mm[Hg] ELMER Lester LPN [facility] Work Phone: Comment on above: Patient Position: Sitting; Cuff Location : Left Arm; Cuff Size: Standard 04-03-2007 13:18-0500 BP Systolic 122 mm[Hg] ELMER Lester LPN [facility] Work Phone: Comment on above: Patient Position: Sitting; Cuff Location : Left Arm; Cuff Size: Standard 04-03-2007 13:18-0500 Head Circumference 0 cm Ivon Lopez [facility] Work Phone: 04-03-2007 13:18-0500 Head Occipital-frontal circumference 0 cm ELMER Lester LPN [facility]; [facility] Work Phone: 04-03-2007 13:18-0500 Height 0 cm ELMER Lester LPN [facility] Work Phone: 04-03-2007 13:18-0500 Pulse (Heart Rate) 76 /min ELMER Lester LPN [facility] Work Phone: Comment on above: Pattern: Regular 04-03-2007 13:18-0500 Respiratory Rate 18 /min ELMER Lester LPN [facility] Work Phone: Comment on above: Pattern: Unlabored 04-03-2007 13:18-0500 Weight 0 kg Ivon Lopez [facility] Work Phone: 2007 14:33-0400 Body Temperature 98.3 [degF] Jocelin [facility] Work Phone: Comment on above: Method: Oral 2007 14:33-0400 Body weight 0 kg Jocelin [facility] Work Phone: 2007 14:33-0400 BP Diastolic 80 mm[Hg] [facility]: Comment on above: Patient Position: Sitting; Cuff Location : Right Arm; Cuff Size: Large 2007 14:33-0400 BP Systolic 130 mm[Hg] Jocelin [facility]ga [facility] Work Phone: Comment on above: Patient Position: Sitting; Cuff Location : Right Arm; Cuff Size: Large 2007 14:33-0400 Head Circumference 0 cm Ivon Lopez [facility] Work Phone: 2007 14:33-0400 Head Occipital-frontal circumference 0 cm Jocelin [facility]; [facility] Work Phone: 2007 14:33-0400 Height 0 cm Jocelin [facility] Work Phone: 2007 14:33-0400 Pulse (Heart Rate) 68 /min Jocelin Ortega [facility] Work Phone: Comment on above: Pattern: Regular 2007 14:33-0400 Respiratory Rate 16 /min Jocelin Or[facility]ga [facility] Work Phone: Comment on above: Pattern: Unlabored 2007 14:33-0400 Weight 0 kg Ivon Bergeron [facility] Work Phone: 02-06-2007 13:56-0400 Body Temperature 98.3 [degF] Thais Can RN [facility] Work Phone: Comment on above: Method: Oral 02-06-2007 13:56-0400 Body weight 105.69 kg Thais Can RN [facility] Work Phone: 02-06-2007 13:56-0400 BP Diastolic 96 mm[Hg] Thais Can RN [facility] Work Phone: Comment on above: Patient Position: Sitting; Cuff Location : Left Arm; Cuff Size: Large 02-06-2007 13:56-0400 BP Systolic 150 mm[Hg] Thais Can RN [facility] Work Phone: Comment on above: Patient Position: Sitting; Cuff Location : Left Arm; Cuff Size: Large 02-06-2007 13:56-0400 Head Circumference 0 cm Ivon Lopez [facility] Work Phone: 02-06-2007 13:56-0400 Head Occipital-frontal circumference 0 cm Thais Can RN [facility]; [facility] Work Phone: 02-06-2007 13:56-0400 Height 0 cm Thais Can RN [facility] Work Phone: 02-06-2007 13:56-0400 Pulse (Heart Rate) 88 /min Thais Can RN [facility] Work Phone: Comment on above: Pattern: Regular 02-06-2007 13:56-0400 Respiratory Rate 16 /min Thais Can RN [facility] Work Phone: Comment on above: Pattern: Unlabored 02-06-2007 13:56-0400 Weight 105.69 kg Ivon Lopez [facility] Work Phone: 12-15-2006 13:01-0400 Body Temperature 98.5 [degF] Thais Can RN [facility] Work Phone: Comment on above: Method: Oral 12-15-2006 13:01-0400 Body weight 107.05 kg Thais Can RN [facility] Work Phone: 12-15-2006 13:01-0400 BP Diastolic 78 mm[Hg] Thais Can RN [facility] Work Phone: Comment on above: Patient Position: Sitting; Cuff Location : Left Arm; Cuff Size: Standard 12-15-2006 13:01-0400 BP Systolic 132 mm[Hg] Thais Can RN [facility] Work Phone: Comment on above: Patient Position: Sitting; Cuff Location : Left Arm; Cuff Size: Standard 12-15-2006 13:01-0400 Head Circumference 0 cm Ivon John [facility] Work Phone: 12-15-2006 13:01-0400 Head Occipital-frontal circumference 0 cm Thais Can RN [facility]; [facility] Work Phone: 12-15-2006 13:01-0400 Height 0 cm Thais Can RN [facility] Work Phone: 12-15-2006 13:01-0400 Pulse (Heart Rate) 72 /min Thais Can RN [facility] Work Phone: Comment on above: Pattern: Regular 12-15-2006 13:01-0400 Respiratory Rate 16 /min Thais Can RN [facility] Work Phone: Comment on above: Pattern: Unlabored 12-15-2006 13:01-0400 Weight 107.05 kg Ivon John [facility] Work Phone: 10-20-2006 16:02-0400 Body Temperature 97.6 [degF] ELMER Lester LPN [facility] Work Phone: Comment on above: Method: Oral 10-20-2006 16:02-0400 Body weight 109.32 kg ELMER Lester LPN [facility] Work Phone: 10-20-2006 16:02-0400 BP Diastolic 82 mm[Hg] ELMER Lester LPN [facility] Work Phone: Comment on above: Patient Position: Sitting; Cuff Location : Left Arm; Cuff Size: Large 10-20-2006 16:02-0400 BP Systolic 124 mm[Hg] ELMER Lester LPN [facility] Work Phone: Comment on above: Patient Position: Sitting; Cuff Location : Left Arm; Cuff Size: Large 10-20-2006 16:02-0400 Head Circumference 0 cm Ivon Lopez [facility] Work Phone: 10-20-2006 16:02-0400 Head Occipital-frontal circumference 0 cm ELMER Lester LPN [facility]; [facility] Work Phone: 10-20-2006 16:02-0400 Height 0 cm ELMER Lester LPN [facility] Work Phone: 10-20-2006 16:02-0400 Pulse (Heart Rate) 72 /min ELMER Lester LPN [facility] Work Phone: Comment on above: Pattern: Regular 10-20-2006 16:02-0400 Respiratory Rate 20 /min ELMER Lester LPN [facility] Work Phone: Comment on above: Pattern: Unlabored 10-20-2006 16:02-0400 Weight 109.32 kg [facility] Work Phone: 10-03-2006 16:25-0400 Body Temperature 98.6 [degF] Caitlin Dailey LPN [facility] Work Phone: Comment on above: Method: Oral 10-03-2006 16:25-0400 Body weight 109.91 kg Caitlin Dailey LPN [facility] Work Phone: 10-03-2006 16:25-0400 BP Diastolic 76 mm[Hg] Caitlin Dailey LPN [facility] Work Phone: Comment on above: Patient Position: Sitting; Cuff Location : Left Arm; Cuff Size: Standard 10-03-2006 16:25-0400 BP Systolic 138 mm[Hg] Caitlin Dailey LPN [facility] Work Phone: Comment on above: Patient Position: Sitting; Cuff Location : Left Arm; Cuff Size: Standard 10-03-2006 16:25-0400 Head Circumference 0 cm [facility] Work Phone: 10-03-2006 16:25-0400 Head Occipital-frontal circumference 0 cm Caitlin Dailey LPN [facility]; [facility] Work Phone: 10-03-2006 16:25-0400 Height 0 cm Caitlin Dailey LPN [facility] Work Phone: 10-03-2006 16:25-0400 Pulse (Heart Rate) 64 /min Caitlin Dailey [employer]MER [facility] Internal Medicine Work Phone: Comment on above: Pattern: Regular 10-03-2006 16:25-0400 Respiratory Rate 16 /min Caitlin Dailey [employer]MER [facility] Internal Medicine Work Phone: Comment on above: Pattern: Unlabored 10-03-2006 16:25-0400 Weight 109.91 kg Ivon Lopez [facility] Work Phone: 08-22-2006 15:54-0400 Body weight 111.22 kg [facility] Medicine Work Phone: 08-22-2006 15:54-0400 BP Diastolic 80 mm[Hg] [facility] Work Phone: Comment on above: Patient Position: Sitting; Cuff Location : Left Arm; Cuff Size: Large 08-22-2006 15:54-0400 BP Systolic 144 mm[Hg] [facility] Work Phone: Comment on above: Patient Position: Sitting; Cuff Location : Left Arm; Cuff Size: Large 08-22-2006 15:54-0400 Head Circumference 0 cm [facility]von Lopez [facility] Work Phone: 08-22-2006 15:54-0400 Head Occipital-frontal circumference 0 cm [facility]; [facility] Work Phone: 08-22-2006 15:54-0400 Height 0 cm [facility] Work Phone: 08-22-2006 15:54-0400 Pulse (Heart Rate) 66 /min [facility] Work Phone: Comment on above: Pattern: Regular 08-22-2006 15:54-0400 Respiratory Rate 16 /min [facility] Work Phone: Comment on above: Pattern: Unlabored 08-22-2006 15:54-0400 Weight 111.22 kg [facility]von Lopez [facility] Work Phone: 07-14-2006 14:32-0500 Body Temperature 97.6 [degF] ELMER Lester LPN [facility] Work Phone: Comment on above: Method: Oral 07-14-2006 14:32-0500 Body weight 112.04 kg ELMER Lester LPN [facility] Work Phone: 07-14-2006 14:32-0500 BP Diastolic 84 mm[Hg] ELMER Lester LPN [facility] Work Phone: Comment on above: Patient Position: Sitting; Cuff Location : Left Arm; Cuff Size: Large 07-14-2006 14:32-0500 BP Systolic 122 mm[Hg] ELMER Lester LPN [facility] Work Phone: Comment on above: Patient Position: Sitting; Cuff Location : Left Arm; Cuff Size: Large 07-14-2006 14:32-0500 Head Circumference 0 cm [facility] Work Phone: 07-14-2006 14:32-0500 Head Occipital-frontal circumference 0 cm ELMER Lester LPN [facility]; [facility] Work Phone: 07-14-2006 14:32-0500 Height 0 cm ELMER Lester LPN [facility] Work Phone: 07-14-2006 14:32-0500 Pulse (Heart Rate) 78 /min ELMER Lester LPN [facility] Work Phone: Comment on above: Pattern: Regular 07-14-2006 14:32-0500 Respiratory Rate 20 /min ELMER Lester LPN [facility] Work Phone: Comment on above: Pattern: Unlabored 07-14-2006 14:32-0500 Weight 112.04 kg [facility]von Lopez [facility] Work Phone: 03-01-2006 14:19-0400 Body Temperature 98.9 [degF] Caitlin Dailey [facility] Work Phone: Comment on above: Method: Oral 03-01-2006 14:19-0400 Body weight 99.82 kg Caitlin Dailey [facility] Work Phone: 03-01-2006 14:19-0400 BP Diastolic 76 mm[Hg] Caitlin Dailey [employer] [facility] Work Phone: Comment on above: Patient Position: Sitting; Cuff Location : Left Arm; Cuff Size: Standard 03-01-2006 14:19-0400 BP Systolic 122 mm[Hg] Caitlin Dailey [employer] [facility] Work Phone: Comment on above: Patient Position: Sitting; Cuff Location : Left Arm; Cuff Size: Standard 03-01-2006 14:19-0400 Head Circumference 0 cm [facility] Work Phone: 03-01-2006 14:19-0400 Head Occipital-frontal circumference 0 cm Caitlin Asim [employer] AND [employer]MER [facility]; [facility] Work Phone: 03-01-2006 14:19-0400 Height 0 cm Caitlin Dailey IVONNE [facility] Work Phone: 03-01-2006 14:19-0400 Pulse (Heart Rate) 70 /min Caitlin Dailey LPN [facility] Work Phone: Comment on above: Pattern: Regular 03-01-2006 14:19-0400 Respiratory Rate 16 /min Caitlin Dailey LPN [facility] Work Phone: Comment on above: Pattern: Unlabored 03-01-2006 14:19-0400 Weight 99.82 kg Ivon Lopez [facility] Work Phone: Encounters Encounter Date Encounter Type Care Provider Facility Start: 03-11-2025 ambulatory Ivon Lopez Facilit y:[facility] Start: 02-01-2025 End: 02-01-[address] Ivon Lopez DO Work Phone: -Laboratory Start: 02-01-2025 End: 02-01-[address] Ivon Lopez DO -Laboratory Work Phone: Start: 02-01-2025 End: 02-01-2025 ambulatory Ivon Lopez Facility:[facility] Start: 01-18-2025 End: 01-18-[address] Ivon Lopez DO Work Phone: -Laboratory Start: 01-18-2025 End: 01-18-[address] Ivon Lopez DO -Laboratory Work Phone: Start: 01-18-2025 End: 01-18-2025 ambulatory Ivon Lopez Facility:[facility] Start: 01-10-2025 End: 01-10-[address] Ivon Lopez DO Work Phone: -Laboratory Start: 01-10-2025 End: 01-10-[address] Ivon Lopez DO -Laboratory Work Phone: Start: 01-10-2025 End: 01-10-2025 ambulatory Ivon Lopez Facility:[facility] Start: 12-31-2024 End: 12-31-[address] Ivon Lopez DO Work Phone: -Laboratory Start: 12-31-2024 End: 12-31-[address] Ivon Lopez DO -Laboratory Work Phone: Start: 12-31-2024 End: 12-31-2024 ambulatory Ivon Lopez Facility:[facility] Start: 06-07-2024 End: 06-11-2024 Telephone encounter River La MD Work Phone: General Surgery Comment on above: Patient Question; Or ders (Diagnostic mammogram) Start: 05-07-2024 End: 05-07-2024 ambulatory RIVER LA Facility:[facility] Start: 05-07-2024 End: 05-07-2024 Patient encounter procedure River La MD Work Phone: General Surgery Comment on above: Abnormal finding on breast imaging (Primary Dx) Start: 04-15-2024 ambulatory Ivon Lopez Facilit y:[facility] Start: 03-23-2024 End: 03-23-2024 ambulatory Ivon Lopez Facility:[facility] Start: 03-16-2024 End: 04-14-2024 ambulatory Ivon Lopez Facility:[facility] Start: 03-16-2024 End: 03-16-2024 ambulatory Ivon Lopez Facility:[facility] Start: 03-08-2024 End: 03-08-2024 ambulatory Ivon Lopez Facility:[facility] Start: 03-08-2024 End: 03-08-2024 ambulatory Ivon Lopez Facility:[facility] Start: 09-11-2023 End: 09-11-2023 Emergency department patient visit Dr. Ivon Lopez Work Phone: [facility]-Emergency Department Work Phone: Start: 09-08-2023 End: 09-13-[address] Ivon Lopez Work Phone: [facility] Work Phone: Start: 09-08-2023 End: 09-13-[address] Ivon Lopez Work Phone: [facility]-Laboratory Work Phone: Start: 09-08-[address] Brennan Lopez Work Phone: [facility]-Laboratory Work Phone: Start: 08-12-2023 End: 08-14-[address] Ivon Lopez Work Phone: [facility] Work Phone: Start: 08-12-2023 End: 08-14-[address] Ivon Lopez Work Phone: [facility]-Laboratory Work Phone: Start: 07-04-2023 Non-patient / Non-visit Dr. Joshua Lopez Work Phone: [facility] Start: 07-04-2023 End: 07-04-[address] Ivon Lopez Work Phone: [facility] Work Phone: Start: 07-04-2023 End: 07-04-[address] Ivon Loepz Work Phone: [facility]-Cardiovascular Services Work Phone: Start: 06-14-2023 End: 06-14-2023 Non-patient / Non-visit Dr. Ivon Lopez Work Phone: [facility] Work Phone: Start: 06-14-2023 End: 06-14-[address] Ivon Lopez Work Phone: [facility] Work Phone: Start: 06-14-2023 End: 06-14-[address] Ivon Lopez Work Phone: [facility]-Pulmonary Services/Neurology Work Phone: Start: 02-17-2023 End: 02-17-2023 Office outpatient visit 15 minutes Ivon Lopez DO Work Phone: [facility] Start: 02-11-2023 End: 02-11-2023 ambulatory [facility] Ambulatory Start: 02-11-2023 End: 02-11-2023 Office outpatient visit 15 minutes Maribell Lucio ASSISTANT ASSOCIATE PROFESSOR-DIRECTOR OF MEDICAL EDUCATION Work Phone: [facility] Comment on above: Multiple fractures o f ribs, bilateral, initial encounter for closed fracture (Primary Dx); Rib pain Start: 01-28-2023 End: 01-28-2023 Office outpatient visit 15 minutes Maribell Lucio ASSISTANT ASSOCIATE PROFESSOR-DIRECTOR OF MEDICAL EDUCATION Work Phone: [facility] Comment on above: SOB (shortness of br eath) (Primary Dx); Rib pain; Contusion of both lungs, initial encounter; Multiple fractures of ribs, bilateral, initial encounter for closed fracture Start: 01-28-2023 End: 01-28-2023 ambulatory [facility] Ambulatory Start: 01-15-[address] Maribell Dey [place] Facility:[id number] Start: 12-28-2022 End: 12-28-2022 ambulatory MARIBELL Salas NAVEED [facility] Ambulatory Start: 12-28-2022 End: 12-28-2022 Office outpatient new 30 minutes Maribell Lucio ASSISTANT ASSOCIATE PROFESSOR-DIRECTOR OF MEDICAL EDUCATION Work Phone: [facility] Comment on above: Chest injury, initia l encounter (Primary Dx); Rib pain; Contusion of both lungs, initial encounter Start: 02-18-2022 End: 03-24-2022 Office outpatient visit 5 minutes Ivon John DO Work Phone: [facility] Start: 02-02-2022 End: 02-02-2022 Emergency department patient visit [facility]-Emergency Department Start: 01-21-2022 End: 01-21-2022 Office outpatient visit 10 minutes Ivon John DO Work Phone: [facility] Start: 01-04-2022 End: 01-04-2022 Office outpatient visit 10 minutes Ivon John DO Work Phone: [facility] Start: 12-25-2021 End: 12-25-2021 Office outpatient visit 10 minutes Ivon John DO Work Phone: [facility] Start: 12-25-2021 Ivon Fearo n DO Work Phone: [facility] Start: 12-11-2021 End: 12-11-2021 Office outpatient visit 15 minutes Ivon John DO Work Phone: [facility] Start: 05-20-2021 End: 05-20-2021 Office outpatient visit 10 minutes Ivon John DO Work Phone: [facility] Start: 05-06-2021 End: 05-06-2021 Office outpatient visit 10 minutes Ivon John DO Work Phone: [facility] Start: 04-23-2021 End: 04-23-2021 Office outpatient visit 10 minutes Ivon John DO Work Phone: [facility] Start: 04-06-2021 End: 04-06-2021 Office outpatient visit 10 minutes Vion John DO Work Phone: [facility] Start: 03-25-2021 End: 03-25-2021 Office outpatient visit 10 minutes Ivon John DO Work Phone: [facility] Start: 03-11-2021 End: 03-11-2021 Office outpatient visit 10 minutes Ivon John DO Work Phone: [facility] Start: 04-25-2020 End: 04-25-2020 Office outpatient visit 15 minutes Ivon Bergeron [facility] Start: 02-21-2020 End: 02-21-2020 Office outpatient visit 25 minutes Ivon John [facility] Start: 02-21-2020 Review Ivon John Compreh ensive Internal Medicine Start: 12-18-2019 End: 12-18-2019 Office outpatient visit 15 minutes Ivon John [facility] Start: 12-18-2019 Review Ivon John [facility] Start: 11-27-2019 End: 11-27-2019 Office outpatient visit 25 minutes Ivon John [facility] Start: 11-27-2019 Review Ivon John [facility] Start: 09-04-2019 End: 09-04-2019 Lab Order [facility] [employer] [facility] al [facility] Start: 09-04-2019 End: 09-04-2019 Ivon John DO Work Phone: [facility] Start: 08-30-2019 End: 08-30-2019 Office outpatient visit 15 minutes Ivon John [facility] Start: 03-02-2019 End: 03-02-2019 Phone Encounter [facility]von John [facility] Development [facility] Start: 03-02-2019 End: 03-02-2019 Ivon John DO Work Phone: [facility] Start: 02-14-2019 End: 02-14-2019 Office outpatient visit 15 minutes [facility]von Lopez [facility] Start: 09-22-2018 End: 09-22-2018 Office outpatient visit 10 minutes Ivon John [facility] Start: 09-18-2018 Patient encounter procedure [facility] Lopez [facility] Start: 09-06-2018 End: 09-06-2018 Office outpatient visit 10 minutes [facility]von Lopez [facility] Start: 08-25-2018 End: 08-25-2018 Office outpatient visit 10 minutes Ivon Villanueva [facility] Start: 07-31-2018 End: 07-31-2018 Office outpatient visit 25 minutes [facility]von Lopez [facility] Start: 06-23-2018 End: 06-23-2018 Office outpatient visit 25 minutes [facility]von Lopez [facility] Start: 06-16-2018 End: 06-16-2018 Office outpatient visit 25 minutes [facility]von Lopez [facility] Start: 06-16-2018 Review Ivon Lopez [facility] Medicine Start: 11-08-2017 End: 11-08-2017 Office outpatient visit 10 minutes Ivon Lopez [facility] Start: 09-30-2017 End: 09-30-2017 Office outpatient visit 10 minutes Ivon Lopez [facility] Start: 08-23-2017 End: 08-23-2017 Office outpatient visit 25 minutes Ivon Lopez [facility] Start: 05-06-2017 End: 05-06-2017 Office outpatient visit 10 minutes Ivon Lopez [facility] Start: 03-11-2017 End: 03-11-2017 Office outpatient visit 15 minutes [facility]von Lopez [facility] Start: 02-07-2017 End: 02-07-2017 Office outpatient visit 15 minutes Ivon Lopez [facility] Start: 09-13-2016 End: 09-13-2016 Phone Encounter Ivon Villanueva Senior Software Development Manager al Medicine Start: 09-13-2016 End: 09-13-2016 Ivon Lopez DO Work Phone: [facility] Start: 09-10-2016 End: 09-10-2016 Phone Encounter [facility] Lopez [facility] Development [facility] Start: 09-10-2016 End: 09-10-2016 Ivon Lopez DO Work Phone: [facility] Start: 06-02-2016 End: 06-02-2016 Office outpatient visit 15 minutes Ivon Lopez [facility] Start: 05-21-2016 End: 05-21-2016 Office outpatient visit 15 minutes [facility]von Lopez [facility] Start: 04-07-2016 End: 04-07-2016 Office outpatient visit 15 minutes Ivon Lopez [facility] Start: 09-29-2015 End: 09-29-2015 Office outpatient visit 40 minutes Ivon Lopez [facility] Start: 11-01-2014 End: 11-01-2014 Office outpatient visit 5 minutes Ivon Lopez [facility] Start: 11-01-2014 End: 11-01-2014 Office outpatient visit 25 minutes Ivon Lopez [facility] Start: 04-29-2014 End: 04-29-2014 Phone Encounter Ivonhasmukh Lopez [facility] Senior Software Development Manager al Medicine Start: 04-29-2014 End: 04-29-2014 Ivon Lopez DO Work Phone: [facility] Start: 03-18-2014 End: 03-18-2014 Office outpatient visit 25 minutes Ivon Lopez [facility] Start: 01-04-2014 End: 01-04-2014 Office outpatient visit 25 minutes Ivon Lopez [facility] Start: 07-27-2013 End: 07-27-2013 Patient encounter procedure Ivon Lopez [facility] Start: 07-27-2013 End: 07-27-2013 Ivon Lpoez DO Work Phone: [facility] Start: 07-24-2013 End: 07-24-2013 Patient encounter procedure Ivon Lopez [facility] Start: 07-24-2013 End: 07-24-2013 Ivon Lopez DO Work Phone: [facility] Start: 05-03-2013 End: 05-03-2013 Patient encounter procedure Ivon Lopez [facility] Start: 05-03-2013 End: 05-03-2013 Ivon Lopez DO Work Phone: [facility] Start: 01-26-2013 End: 01-26-2013 Patient encounter procedure Ivon Lopez [facility] Start: 01-26-2013 End: 01-26-2013 Ivon Lopez DO Work Phone: [facility] Start: 01-04-2013 End: 01-04-2013 Patient encounter procedure Ivon Lopez [facility] Start: 01-04-2013 End: 01-04-2013 Ivonhasmukh Lopez DO Work Phone: [facility] Start: 12-27-2012 End: 12-27-2012 Phone Encounter Ivon Lopez [facility] Senior Software Development Manager al Medicine Start: 12-27-2012 End: 12-27-2012 Ivon Lopez DO Work Phone: [facility] Start: 12-25-2012 End: 12-25-2012 Prescription Refill [facility] Lopez [facility] Start: 12-25-2012 End: 12-25-2012 Ivon Lopez DO Work Phone: [facility] Start: 12-20-2012 End: 12-20-2012 Patient encounter procedure Ivon Lopez [facility] Start: 12-20-2012 End: 12-20-2012 Ivon Lopez DO Work Phone: [facility] Start: 02-24-2012 End: 02-24-2012 Patient encounter procedure Ivon Lopez [facility] Start: 02-24-2012 End: 02-24-2012 Ivon Lopez DO Work Phone: [facility] Start: 02-07-2012 End: 02-07-2012 Patient encounter procedure Ivon Lopez [facility] Start: 02-07-2012 End: 02-07-2012 Ivon Lopez DO Work Phone: [facility] Start: 01-25-2012 End: 01-25-2012 Patient encounter procedure Ivon Lopez [facility] Start: 01-25-2012 End: 01-25-2012 Ivon Lopez DO Work Phone: [facility] Start: 01-13-2012 End: 01-13-2012 Patient encounter procedure Ivon Lopez [facility] Start: 01-13-2012 End: 01-13-2012 Ivon Lopez DO Work Phone: [facility] Start: 12-24-2011 End: 12-24-2011 Patient encounter procedure Ivon Lopez [facility] Start: 12-24-2011 End: 12-24-2011 Ivon Lopez DO Work Phone: [facility] Start: 12-10-2011 End: 12-10-2011 Patient encounter procedure Ivon Lopez [facility] Start: 12-10-2011 End: 12-10-2011 Ivon Lopez DO Work Phone: [facility] Start: 07-27-2011 End: 07-27-2011 Patient encounter procedure Ivon Lopez [facility] Start: 07-27-2011 End: 07-27-2011 Ivon Bergeron DO Work Phone: [facility] Start: 05-27-2011 End: 05-27-2011 Phone Encounter [facility] Start: 05-27-2011 End: 05-27-2011 Ivonhasmukh Bergeron DO Work Phone: [facility] Start: 05-25-2011 End: 05-25-2011 Patient encounter procedure Ivon Lopez [facility] Start: 05-25-2011 End: 05-25-2011 Ivon Lopez DO Work Phone: [facility] Start: 02-16-2011 End: 02-16-2011 Patient encounter procedure Ivon Lopez [facility] Start: 02-16-2011 End: 02-16-2011 Ivon John DO Work Phone: [facility] Start: 02-02-2011 End: 02-02-2011 Patient encounter procedure Ivon Lopez [facility] Start: 02-02-2011 End: 02-02-2011 Ivon Bergeron DO Work Phone: [facility] Start: 01-15-2011 End: 01-15-2011 Phone Encounter [facility]von Lopez [facility] Senior Software Development Manager al Medicine Start: 01-15-2011 End: 01-15-2011 Ivon Lopez DO Work Phone: [facility] Start: 01-05-2011 End: 01-05-2011 Patient encounter procedure Ivon Lopez [facility] Start: 01-05-2011 End: 01-05-2011 Ivonhasmukh Bergeron DO Work Phone: [facility] Start: 12-07-2010 End: 12-07-2010 Patient encounter procedure Ivon Lopez [facility] Start: 12-07-2010 End: 12-07-2010 Ivon John DO Work Phone: [facility] Start: 09-07-2010 End: 09-07-2010 Phone Encounter [facility] Start: 09-07-2010 End: 09-07-2010 Ivon Lopez DO Work Phone: [facility] Start: 09-03-2010 End: 09-03-2010 Patient encounter procedure Ivon Lopez [facility] Start: 09-03-2010 End: 09-03-2010 Ivon Lopez DO Work Phone: [facility] Start: 08-21-2010 End: 08-21-2010 Patient encounter procedure Ivon Lopez [facility] Start: 08-21-2010 End: 08-21-2010 Ivon Lopez DO Work Phone: [facility] Start: 08-07-2010 End: 08-07-2010 Patient encounter procedure Ivon Lopez [facility] Start: 08-07-2010 End: 08-07-2010 Ivon Lopez DO Work Phone: [facility] Start: 03-30-2010 End: 03-30-2010 Patient encounter procedure Ivon Lopez [facility] Start: 03-30-2010 End: 03-30-2010 Ivon Lopez DO Work Phone: [facility] Start: 01-07-2010 End: 01-07-2010 Patient encounter procedure Ivon Lopez [facility] Start: 01-07-2010 End: 01-07-2010 Ivon Lopez DO Work Phone: [facility] Start: 12-04-2009 End: 12-04-2009 Patient encounter procedure Ivon Lopez [facility] Start: 12-04-2009 End: 12-04-2009 Ivon Lopez DO Work Phone: [facility] Start: 10-27-2009 End: 10-27-2009 Patient encounter procedure Ivon Lopez [facility] Start: 10-27-2009 End: 10-27-2009 Ivon Lopez DO Work Phone: [facility] Start: 08-21-2009 End: 08-21-2009 Patient encounter procedure Ivon Lopez [facility] Start: 08-21-2009 End: 08-21-2009 Ivon Lopez DO Work Phone: [facility] Start: 06-06-2009 End: 06-06-2009 Patient encounter procedure Ivon Lopez [facility] Start: 06-06-2009 End: 06-06-2009 Ivon Lopez DO Work Phone: [facility] Start: 04-28-2009 End: 04-28-2009 Patient encounter procedure Ivon Lopez [facility] Start: 04-28-2009 End: 04-28-2009 Ivon Lopez DO Work Phone: [facility] Start: 11-28-2008 End: 11-28-2008 Historical Summary [facility]von Lopez [facility] Development [facility] Start: 11-28-2008 End: 11-28-2008 Ivon Lopez DO Work Phone: [facility] Start: 11-22-2008 End: 11-22-2008 Office outpatient visit 15 minutes Ivon Lopez [facility] Start: 07-25-2008 End: 07-26-2008 Patient encounter procedure [facility] Start: 07-25-2008 End: 07-26-2008 Ivon Lopez DO Work Phone: [facility] Start: 07-01-2008 End: 07-01-2008 Patient encounter procedure [facility] Start: 07-01-2008 End: 07-01-2008 Ivon Lopez DO Work Phone: [facility] Start: 02-01-2008 End: 02-01-2008 Patient encounter procedure [facility] Start: 02-01-2008 End: 02-01-2008 Ivon Lopez DO Work Phone: [facility] Start: 11-23-2007 End: 11-23-2007 Office outpatient visit 10 minutes [facility] Start: 06-19-2007 End: 06-19-2007 Office outpatient visit 15 minutes [facility] Start: 04-03-2007 End: 04-03-2007 Office outpatient visit 15 minutes [facility] Start: 2007 End: 02-24-2007 Patient encounter procedure [facility] Start: 2007 End: 02-24-2007 Ivon Lopez DO Work Phone: [facility] Start: 02-06-2007 End: 02-06-2007 Patient encounter procedure [facility] Start: 02-06-2007 End: 02-06-2007 Ivonhasmukh Lopez DO Work Phone: [facility] Start: 12-15-2006 End: 12-15-2006 Patient encounter procedure [facility] Start: 12-15-2006 End: 12-15-2006 Ivon Lopez DO Work Phone: [facility] Start: 10-20-2006 End: 10-20-2006 Office outpatient visit 10 minutes [facility] Start: 10-03-2006 End: 10-03-2006 Nursing evaluation of patient and report [facility] Start: 10-03-2006 End: 10-03-2006 Ivon Lopez DO Work Phone: [facility] Start: 08-22-2006 End: 08-22-2006 Patient encounter procedure [facility] Start: 08-22-2006 End: 08-22-2006 Ivon Lopez DO Work Phone: [facility] Start: 07-14-2006 End: 07-14-2006 Office outpatient visit 15 minutes [facility] Start: 03-08-2006 End: 03-08-2006 Historical Summary [facility] Start: 03-08-2006 End: 03-08-2006 Ivon Lopez DO Work Phone: [facility] Start: 03-01-2006 End: 03-01-2006 Patient encounter procedure [facility] Start: 03-01-2006 End: 03-01-2006 Ivon Lopez DO Work Phone: [facility] Start: 02-28-2006 End: 02-28-2006 Historical Summary [facility] Start: 02-28-2006 End: 02-28-2006 Ivon John DO Work Phone: [facility] Procedures Date Procedure Procedure Detail Performing Clinician Start: 01-18-2025 Urnls dip stick/tablet reagent auto microscopy Dr. Ivon Lopez DO Work Phone: Start: 01-18-[address] Brennan Lopez DO Work Phone: Start: 01-10-2025 Urnls dip stick/tablet reagent auto microscopy Dr. Ivon Lopez DO Work Phone: Start: 01-10-[address] Brennan Lopez DO Work Phone: Start: 12-31-2024 Urine microalbumin/creatini ne ratio measurement Dr. Ivon Lopez DO Work Phone: Start: 12-31-2024 Urnls dip stick/tablet reagent auto microscopy Dr. Ivon Lopez DO Work Phone: Start: 12-31-2024 Vitamin D, 25-hydrox y measurement Dr. Ivon Lopez DO Work Phone: Comment on above: Vitamin D StatusDefi ciency: <20 ng/mL (50nmol/L)Insufficiency: 20-30 ng/mL (50-75 nmol/L)Sufficiency: 30-100 ng/mL (75-250 nmol/L)Toxicity: >100 ng/mL (>250 nmol/L) Start: 09-11-2023 CT of abdomen and pelvis without contrast Dr. Ivon Lopez Work Phone: Start: 09-08-[address] Brennan Lopez Work Phone: Start: 02-11-2023 FOLLOW UP IN FAMILY MEDICINE MARIBELL LUCIO Start: 02-11-2023 Radiologic exam ches t 2 views Maribell Lucio ASSISTANT ASSOCIATE PROFESSOR-DIRECTOR OF MEDICAL EDUCATION Work Phone: Start: 01-28-2023 FOLLOW UP IN FAMILY MEDICINE MARIBELL LUCIO Start: 12-15-2022 End: 12-15-2022 Procedure Note: See Note; NOTES: [facility] Imaging Services [address] [place] [address] Ribs Vinod Min 4V w/PA Chest MR#: [id number] Acct: [id number] Name: SONDRA CURRIE Rep #: [id number] : 1965 F 57 From: Juanito woodson MD PCP: Dr. Ivon Lopez, DO Status: PRE ER Study: Ribs Vinod Min 4V w/PA Chest Date of Exam: 12/15 Exam# [id number] Ordering Dr: Phuc Mario DO STUDY: X-RAY - BILATERAL RIBS WITH CHEST REASON FOR EXAM: Female, 57 years old. Right sided rib pain following a fall. TECHNIQUE - RIBS: 8 view(s) of the ribs. TECHNIQUE - CHEST: Single PA view of the chest. COMPARISON: Comparison is made with prior study June 21, 2019. FINDINGS - RIBS : Normal visualized ribs without a demonstrated fracture. FINDINGS - CHEST: Limited inspiratory effort. Increased markings at the lung bases suggestive of bibasilar linear atelectasis. There is no demonstrated pleural abnormality. Normal size heart. Normal mediastinum and sloan. Normal visualized pulmonary arteries. There is atherosclerotic tortuosity of the aortic arch and descending thoracic aorta. There are diffuse degenerative changes of the visualized thoracic spine. Normal visualized ribs, clavicles, and shoulders. There is no demonstrated abnormality of the visualized soft tissue structures of the upper abdomen. RAD/Ribs Vinod Min 4V w/PA Chest IMPRESSION: RIBS: Normal x-ray examination of the bilateral ribs. CHEST: Findings suggestive of bibasilar linear atelectasis. Electronically Signed: Juanito Elizabeth MD at 15:37 EDT Reading Location ID and State: [facility] / [place] , Service support , CC: Dr. Phuc Mario DO; Dr. Ivon Lopez DO Vehicle Service Attendant: Signed Ivon Lopez DO Work Phone: Start: 02-11-2022 End: 02-11-2022 Procedure Note: See Note; NOTES: [facility] Vascular Surgery [address] [place] [address] OFFICE VISIT Date of Service: 02/11/22 MR#: [id number] Acct: [id number] Name: SONDRA CURRIE Rep #: [id number] : 1965 Provider: Dr. Phuc Mast MD Age/Sex: 56/F Location: [facility] Status: Signed Intake Vital Signs 02/11/22 10:21 Weight: 206 lb 8 oz BP 143/91 H Blood Pressure Location Lt brachial Respiration 16 Pulse 78 Pulse Source Monitor Temp 98.4 F Temp Source Temporal Pulse Oximetry (%) 97 Oxygen Delivery Method room air Intake Visit Reasons: POSSIBLE POOR CIRCULATION Chief Complaint: pain lower leg ( rt) Is patient in pain?: No Allergies No Known Allergies Allergy (Verified 02/11/22 10:21) Medications colestipol 1 gram tablet 1 g PO DAILY 10/25/13 [History Confirmed 02/11/22] minocycline 100 mg capsule 100 mg PO DAILY PRN ROACIA 10/25/13 [History Confirmed 02/11/22] propranolol 80 mg capsule,24 hr,extended release 80 mg PO DAILY 10/25/13 [History Confirmed 02/11/22] PFSH Medical History Anemia GERD (gastroesophageal reflux disease) Migraines Right knee meniscal tear Severe headache Shoulder pain Surgical History H/O right knee surgery Family History Other Arthritis Cancer Colon cancer Diabetes High cholesterol Hypertension Social History Smoking Status: Never smoker HPI HPI HPI: SONDRA CURRIE, is a 56 F who presents to the office today for evaluation of RLE cold sensation for the past few years since she had arthroscopic knee surgery. Mostly occurs at night, not related to cold exposure. No discoloration of skin during events, no numbness/weakness. A few weeks ago she presented to ED with focal rash over medial calf that resolved spontaneously; she was evaluated for DVT which was negative. She also has noted some right calf edema since about that time, maybe longer. ROS General General: Yes weight change and fatigue; No appetite, colon cancer, breast cancer or weakness HEENT HEENT: No difficulty swallowing, eye injury, eye surgery, swollen glands or hoarseness Endo Endocrine: No thyroid disease, diabetes mellitus, thyroid cancer, Hair loss, heat intolerance or cold intolerance Skin Skin: Yes rash; No changing moles Musc Musculoskeletal: Yes back problems; No arthritis, rheumatoid arthritis, gout or joint pain Cardio Cardiovascular: Yes murmur; No pacemaker, heart disease, atrial fibrillation, high blood pressure, heart attack, heart stent, palpitations, shortness of breat with exertion or chest pain Psych Psychiatric: No depression, anxiety or hearing voices Resp Respiratory: No shortness of breath, Yes sleep apnea, Yes cough, No COPD, No asthma, No emphysema and No wheezing Gastro Gastrointestinal: No abdominal pain, No nausea or vomiting, Yes diarrhea, No constipation, No blood in stool, Yes acid reflux, No hemorrhoids, No ulcers, No gallbladder problem and No black,tarry stools Juan Carlos Hematologic: No blood thinners, No blood disorders, No bleeding, No anemia and No blood clots Neuro Neurologic: No system reviewed and no additional complaints, except as documented, No as per HPI, No abnormal gait, No abnormal hearing, No abnormal movements, No abnormal speech, No behavioral changes, No burning sensations, No confusion, No convulsions, No disequilibrium, Yes dizziness, No localized weakness, No frequent falls, No headache(s), No lack of coordination, No loss of vision, No memory loss, Yes numbness, No other visual disturbances, No radicular pain, No restless legs, No sensory deficit, No syncope, No tingling, No tremor(s), No weakness and No other Exam Const General: cooperative, healthy appearing, comfortable, no acute distress and well developed Nutritional Appearance: well nourished Orientation: alert, awake and oriented x3 HENMT Head: normocephalic and atraumatic Ears: hearing grossly normal bilaterally Nose: external nose normal Eyes General: appearance normal, both eyes and all related structures EOM: EOM intact bilaterally Neck Neck: normal visual inspection, full ROM, no lymphadenopathy and trachea midline Thyroid: thyroid normal Lymphatic: no lymphadenopathy noted Resp Effort Inspection: normal respiratory effort, able to speak in complete sentences, symmetric chest movement, no audible wheezes, not labored, no stridor and no use of accessory muscles Auscultation: clear to auscultation bilaterally Cardio Rate: regular rate Rhythm: regular rhythm Heart Sounds: no murmurs Bruits: no carotid bruits Pulses: brachial pulses present, radial pulses present, popliteal pulses present, posterior tibial pulses present and dorsalis pedis present Skin General: no rashes or lesions noted and no erythema Wounds: no wounds Neuro Cranial Nerves: CN's II-XI intact bilaterally and EOM intact bilaterally Speech: speech normal Gait: normal gait Motor: strength 5/5 throughout Sensory Exam: no sensory deficits noted Extremities Lower Extremity Edema: None: Bilateral Psych Appearance: grossly normal and well kempt Mental Status: mental status grossly normal Mood: congruent mood Speech and Movement: speech and movement normal Thought Content: normal Judgment: judgment good Coding Level of Care Code Off vis,new,level 3 Diagnoses Raynaud phenomenon I73.00 Assessment and Plan Assessment and Plan (1) Raynaud phenomenon: Status: Chronic Plan: -transient temperature variation but not necessarily to cold exposure -will obtain PVR with cold immersion to determine if some element of raynauds -if baseline KIM abnormal would potentially benefit from CTA to further evaluate popliteal vessels for any evidence of trauma from knee surgery given time since surgery 02/11/22 1048 <Electronically signed by Phuc Mast MD> Date Phuc Mast MD Cosigner Signature: Date (if applicable) CC: Dr. Ivon Lopez, DO Ivon Lopez DO Work Phone: Start: 02-02-2022 End: 02-02-2022 Procedure Note: See Note; NOTES: [facility] Medical Records Department [address] [place] [address] Emergency Department Summary 02/02/22 MR#: [id number] Acct: [id number] Name: SONDRA CURRIE Rep #: [id number] : 1965 56 From: Tori Soliz DO PCP: Dr. Ivon Lopez DO Status:DEP ER Location: ED HPI History of Present Illness Chief Complaint: Lower Extremity Injury Informant: patient Narrative Narrative: Patient is a 56-year-old female with history of migraines and colitis presenting with right lower extremity pain, swelling and discomfort. She states she has had discomfort that she describes as a tingling and thumping sensation for the past few months. Its worse at night. Does not seem to be affected by exertion. She also feels at night that her lower leg and foot are cold on the right side compared to the left. She denies associated chest pain, shortness of breath or difficulty breathing. While taking a bath last night she noticed that she had a blotchy intermittent red rash going up her leg. This is what finally triggered her to come to the ER. She denies any history of DVT or PE. Denies any tobacco use or history of it. Does have a family history of blood clots. Denies any chest pain, shortness of breath, fever, chills or unintentional weight change. Has had night sweats but feels that those are normal for her. No other complaints at this time. Denies any medications, foods or other environmental exposures. [facility] Medical History Anemia GERD (gastroesophageal reflux disease) Migraines Severe headache Shoulder pain Home Medications colestipol 1 gram tablet 1 gm PO DAILY 10/25/13 [History Last Taken Unknown] minocycline 100 mg capsule 100 mg PO DAILY PRN ROACIA 10/25/13 [History Last Taken Unknown] propranolol 80 mg capsule,24 hr,extended release 80 mg PO DAILY 10/25/13 [History Last Taken Unknown] Allergy/AdvReac Type Severity Reaction Status Date / Time No Known Allergies Allergy Verified 10/25/13 14:26 Social History Smoking Status: Never smoker ROS ROS ED Constitutional Constitutional ED: Denies chills or fever(s) Eyes Eyes: Denies change in vision Cardiovascular Cardiovascular: Denies chest pain or palpitations Respiratory/Chest Respiratory/Chest: Denies cough Gastrointestinal Gastrointestinal: Denies abdominal pain or nausea Musculoskeletal Musculoskeletal: Reports other Details: right lower leg pain ; Denies arthralgias Integumentary Denies rash Neurologic Neurologic: Reports paresthesias; Denies headache(s) or weakness Psychiatric Psychiatric: Denies anxiety EXAM Physical Exam Const Vital Signs: 02/02/22 06:38 02/02/22 09:55 Temperature 97.3 F L Temperature Source Oral Pulse Rate 85 74 Respiratory Rate 16 16 Blood Pressure 151/81 H 152/97 H Blood Pressure Mean 104 Pulse Ox 100 98 Oxygen Delivery Method Room Air Positive well nourished and well developed General Appearance ED: well developed and NAD HEENT Reports moist mucous membranes Eyes PERRL Neck supple Resp normal respiratory effort and clear to auscultation bilaterally Cardio regular rate, regular rhythm and no murmurs Cardio Narrative: 2+ DP and PT pulses GI non-distended Extremity full ROM Extremity Narrative: Asymmetric swelling of the right calf. Tenderness palpation of the proximal anterior tibia. No palpable cords appreciated.Intact range of motion. Neuro oriented x3, moves all extremities and no sensory deficits noted Skin Skin Narrative: Faint blanching erythema scattered on the right medial calf and into the popliteal fossa MDM MDM MDM Narrative Medical decision making narrative: Patient is evaluated for right lower leg swelling and rash associated with it today. She also has some tingling of her leg. She appears nontoxic in no acute distress. She has good distal pulses. No signs of ischemia of the foot/leg. No overlying cellulitis. Venous duplex obtained which is negative for DVT or superficial thrombophlebitis. Basic labs including CBC, PT/INR and BMP are normal. X-ray of the tib/fibula 2 views inter by myself as well as radiology negative for any acute process. Patient counseled that the cause of her transient rash and leg symptoms is not clear however I think she stable to follow-up outpatient. She is given a referral to vascular. She is counseled return precautions. She verbalizes agreement understands plan. Instructed to take Benadryl at home as needed for the rash as it does sound like it could have been hives as well as ibuprofen as needed for pain/discomfort. Did discuss using compression stockings throughout the day to see if that helps with her symptoms. Lab Data Attestation: I reviewed the patient's lab results. Labs: Laboratory Results - last 24 hr 02/02/22 02/02/22 02/02/22 07:15 07:15 07:15 WBC 6.9 RBC 4.64 Hgb 13.7 Hct 41.3 MCV 89.0 MCH 29.5 MCHC 33.2 RDW Std Deviation 41.7 RDW Coeff of Leandro 12.7 Plt Count 220 MPV 10.8 Immature Gran % (Auto) 0.300 Neut % (Auto) 65.8 Lymph % (Auto) 25.1 Hartley % (Auto) 6.5 Eos % (Auto) 1.9 Baso % (Auto) 0.4 Absolute Neuts (auto) 4.6 Absolute Lymphs (auto) 1.74 Nucleated RBC % 0 PT 12.7 INR 1.0 Sodium 142 Potassium 4.1 Chloride 110 H Carbon Dioxide 25.0 Anion Gap 7 BUN 17 Creatinine 0.88 Estim Creat Clear Calc 57.64 Est GFR (MDRD) Af Amer 85 Est GFR (MDRD) Non-Af 70 BUN/Creatinine Ratio 19.3 Glucose 108 H Calcium 8.9 Radiography Diagnostic Testing: Clinical Impression(s) from Imaging Studies Tibia/Fibula X-Ray 02/02/22 06:56 IMPRESSION: No evidence for acute fracture or dislocation. Electronically Signed: Anna Corcoran MD at 7:41 EDT Reading Location ID and State: [facility] / [place] , Service support , Discharge Plan Triage Chief Complaint: Lower Extremity Injury ED Provider: Tori Soliz Dx/Rx/DC Orders Clinical Impression: Localized swelling of right lower leg, Right leg paresthesias Instructions: ED Erythema, ED Peripheral Edema, Unilateral, ED Paraesthesias Prescriptions: No Action minocycline 100 MG capsule 100 mg PO DAILY PRN (Reason: ROACIA) Label Comments: FOR ACNE propranolol 80 MG capsule 80 mg PO DAILY Label Comments: FOR MIGRAINE PREVENTION colestipol 1 GM tablet 1 gm PO DAILY Label Comments: FOR GAS Primary Care Provider: Ivon Lopez Referrals: Phuc Mast MD [Med Staff - Active Staff] - 3-5 Days if not improving Ivon Lopez DO [Primary Care Provider] - Activity Restrictions/Additional Instructions: Try wearing basic compression stockings to see if this helps with your symptoms. We have for the rash she can try taking Benadryl. Anti-inflammatory medication such as ibuprofen might be helpful for the pain. The exact cause of your swelling and skin changes is not clear however I think you are safe to go home at this time. Disposition Disposition: Home, Self Care Discharge Date/Time: 02/02/22 09:57 What to do if you have Problems For any increased pain, shortness of breath, bleeding, nausea or vomiting, chest pain, or any unexpected problems, contact your Primary Care Provider. Call [facility] ([phone]) or report to the closest Emergency Room. Call 911 if necessary. 02/02/22 5648 <Electronically signed by Tori Soliz DO> Cosigner Signature (if applicable): CC: Dr. Ivon Lopez DO Signed Ivon Lopez DO Work Phone: Start: 02-02-2022 Plain X-ray of tibia and fibula Start: 02-02-2022 End: 02-02-2022 Procedure Note: See Note; NOTES: [facility] Imaging Services [address] [place] [address] Tibia Fibula 2 Views MR#: [id number] Acct: [id number] Name: SONDRA CURRIE Rep #: [id number] : 1965 F 56 From: Anna Corcoran MD PCP: Dr. Ivon Lopez DO Status: REG ER Study: Tibia Fibula 2 Views Date of Exam: 02/02/22 Exam# [id number] Ordering Dr: Tori Soliz DO STUDY: X-RAY - RIGHT TIBIA AND FIBULA REASON FOR EXAM: Female, 56 years old patient with leg pain without known trauma. TECHNIQUE: AP and lateral view(s) of the tibia and fibula were obtained. COMPARISON: None. FINDINGS: Normal visualized tibia. Normal visualized fibula. There is no demonstrated acute fracture. There is a small plantar calcaneal spur. The soft tissue structures are unremarkable. RAD/Tibia Fibula 2 Views IMPRESSION: No evidence for acute fracture or dislocation. Electronically Signed: Anna Corcoran MD at 7:41 EDT Reading Location ID and State: [facility] / [place] , Service support , CC: Dr. Tori Soliz DO; Dr. Ivon Lopez DO Vehicle Service Attendant: Signed Ivon Lopez DO Work Phone: Start: 02-02-2022 End: 02-02-2022 Procedure Note: See Note; NOTES: [facility] Cardiovascular Services [address] [place] [address] Venous Duplex US, Unilateral 02/02/22 0845 MR#: [id number] Acct: [id number] Name: SONDRA CURRIE Rep #: [id number] : 1965 56 From: Phuc Mast MD Attending Dr: Status: DEP ER Ordering Dr: Tori Soliz DO Date: 02/02/22 Location: ED Sex: F C Admitted: Reason For Study: swelling RIGHT GSV is normal. CFV is compressible, spontaneous, phasic, competent and demonstrates normal augmentation. FV is compressible, spontaneous, phasic, competent and demonstrates normal augmentation. POP V is compressible, spontaneous, phasic, competent and demonstrates normal augmentation. T/P Trunk is compressible. PTV is compressible. RT PerV is compressible. Procedure This is a venous duplex using B-mode, color flow and spectral Doppler. Exam performed portable in ED. The exam was abbreviated due to the COVID 19 protocol. The exam was diagnostic. A preliminary report was called and/or faxed to ED RN. VL/Venous Duplex US, Unilateral Interpretation Summary Deep veins of the right lower extremity are patent and compressible segmentally. There is no evidence of right lower extremity deep vein thrombosis. The right great saphenous vein appears patent and compressible segmentally. Ordering Physician: Tori Soliz Performed By: Jose M Cartwright RVT 02/02/22 1621 Date Phuc Mast MD CC: Dr. Tori Soliz DO; Dr. Ivon Lopez DO Date Dictated: 02/02/22 0845 Date Transcribed: 02/02/221620 Vehicle Service Attendant: Signed Ivon Lopez DO Work Phone: Start: 01-01-2019 End: 01-01-2019 Spine Thoracic W/WO Contrast Comments: See Note; NOTES: [facility] Imaging Services [address] [place] [address] Spine Thoracic W/WO Contrast MR#: [id number] Acct: [id number] Name: SONDRA CURRIE Rep #: [id number] : 1965 F 53 From: Phuc Spivey DO PCP: Ivon Lopez DO Status: REG CLI Study: Spine Thoracic W/WO Contrast Date of Exam: 01/01/19 Exam# [id number] Ordering Dr: Agus Gomez MD STUDY: MRI THORACIC SPINE WITH AND WITHOUT CONTRAST REASON FOR EXAM: Female, 53 years old. Follow-up syringomyelia. TECHNIQUE: 18 IV Dotarem was administered for the contrast portion of the examination. Standardized fat and water weighted pulse sequences were obtained in the sagittal and axial planes. COMPARISON: July 18, 2018. FINDINGS: Nonenhancing unchanged size thin syrinx extending from the T5-T8 levels with additional T10-L1 component. Conus medullaris terminates at the L1 level. No new abnormal cord signal. No enhancing vertebral body lesions. No acute fracture, dislocation or osseous destruction. Slightly exaggerated thoracic kyphosis. No significant scoliosis. T1-2, T2-3, T3-4, T4-5, T5-6, T7-8, T8-9, T9-10: No central canal narrowing. No significant neural from narrowing. Mild endplate spondylosis. Mild disc desiccation. T6-7 disc osteophyte complex with mild central canal narrowing. T10-11 disc osteophyte complex with mild central canal narrowing. T11-12 disc osteophyte complex without central canal narrowing. Normal mediastinum. Normal soft tissue structures. MRI/Spine Thoracic W/WO Contrast IMPRESSION: Nonenhancing multisegment thin syrinx Unchanged intervertebral disc disease/degenerative findings Electronically Signed: Phuc Spivey DO at 12:33 EDT Tel , Service support , CC: Ivon Lopez DO; MD Agus Gomez Vehicle Service Attendant: Signed Agus Gomez Work Phone: Start: 10-31-2018 End: 10-31-2018 12 lead ECG Comments: See Note; NOTES: [facility] Cardiovascular Services [address] [place] [address] 12 Lead EKG 09/30/18 1027 MR#: [id number] Acct: [id number] Name: SONDRA CURRIE Rep #: [id number] : 1965 53 From: Meño Melendez MD Attending Dr: Dipak Mojica Status: DEP CLI Ordering Dr: Dipak Smith PA-C Date: 09/30/18 Location: LAB Sex: F C Admitted: Test Reason : PRE OP Blood Pressure : / mmHG Vent. Rate : 064 BPM Atrial Rate : 064 BPM P-R Int : 192 ms QRS Dur : 084 ms QT Int : 408 ms P-R-T Axes : 058 -04 023 degrees QTc Int : 420 ms Normal sinus rhythm Normal ECG Confirmed by DMITRY MELENDEZ ([id number]), editor sound JEN CORCORAN ([id number]) on 10/02/2018 3:03:06 PM Referred By: Dipak Smith Confirmed By:EAN MELENDEZ 10/02/18 1503 Date Meño Melendez MD CC: Ivon Lopez DO; Dipak Lopez Start: 07-18-2018 End: 07-18-2018 Spine Thoracic (Routine) Comments: See Note; NOTES: [facility] Imaging Services [address] [place] [address] Spine Thoracic (Routine) MR#: [id number] Acct: [id number] Name: SONDRA CURRIE Rep #: [id number] : 1965 F 53 From: Juan F Gonzalez MD PCP: Ivon Lopez DO Status: [facility] CLI Study: Spine Thoracic (Routine) Date of Exam: 07/18/18 Exam# [id number] Ordering Dr: Ivon Lopez DO STUDY: MRI THORACIC SPINE WITHOUT CONTRAST REASON FOR EXAM: Female, 53 years old. Left flank pain and left back pain for 5 years TECHNIQUE: Standardized fat and water weighted pulse sequences were obtained in the sagittal and axial planes. COMPARISON: Radiographs 06/16/2018 FINDINGS: Normal kyphosis of the thoracic spine. There is no substantial scoliosis. T1-2, T2-3, T3-4, T4-5, T5-6, T7-8, T8-9, T9-10: Normal endplates. Normal disc hydration, heights and morphology of the corresponding intervertebral discs. Normal central canal and intervertebral neural foramina at the corresponding levels. At T6-7, disc osteophyte complex is present with mild central canal stenosis. At T10-11, disc osteophyte complex is present with mild central canal stenosis. At T11-12, disc osteophyte complex is present without compressive sequelae. Syringohydromyelia is noted. This measures 3 mm in width and is located in the central cord extending from the T6-7 level to the T8 level. No associated cord expansion. A second syrinx is identified extending from the T11 level to the T12-L1 level measuring up to 2 mm in width without expansion. Normal conus medullaris that terminates at the L1 level. The soft tissue structures are unremarkable. 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 Consider correlation with postcontrast images to characterize further. Multilevel degenerative disease as described. No evidence of nerve root impingement. Electronically Signed: Juan F Gonzalez MD at 22:35 EST Tel , Service support , CC: Ivon Lopez DO Vehicle Service Attendant: Signed Ivon Lopez Work Phone: Start: 06-23-2018 End: 06-24-2018 Abdomen/Pelvis without Cont Comments: See Note; NOTES: [facility] Imaging Services [address] [place] [address] Abdomen/Pelvis without Cont MR#: [id number] Acct: [id number] Name: SONDRA CURRIE Rep #: [id number] : 1965 F 53 From: Jadon Leo MD PCP: Ivon Lopez DO Status: REG CLI Study: Abdomen/Pelvis without Cont Date of Exam: 06/23/18 Exam# [id number] Ordering Dr: Ivon Lopez DO STUDY: CT ABDOMEN AND PELVIS WITHOUT CONTRAST REASON FOR EXAM: Female, 53 years old. Left flank pain RADIATION DOSAGE (If Supplied By Facility): CTDIvol = ( 14.80 ) mGy, DLP = ( 740.85 ) mGycm TECHNIQUE: Transaxial images were obtained from the dome of the diaphragm to the symphysis pubis without oral contrast, and without intravenous contrast. Sagittal and coronal images were reconstructed. Individualized dose optimization techniques were used for this CT. COMPARISON: None. FINDINGS: The lung bases are clear. The liver is normal. No dilated intrahepatic biliary radicles. The gallbladder is normal with no calcifications within it. There is no pericholecystic fluid collection or streakiness The spleen is normal. The pancreas is normal. Both adrenals are normal. The kidneys are normal with no masses, calculi or hydronephrosis The stomach is normal. There is no bowel distention, acute appendicitis or diverticulitis. No constricting lesions are seen in large bowel. The abdominal wall is intact with no hernias. There is no ascites or any free intraperitoneal air. No indication of epiploic appendagitis The vascular structures in the retroperitoneum are normal. There is no retrocrural, retroperitoneal or mesenteric adenopathy. Multilevel degenerative changes of the lumbosacral spine. The urinary bladder is normal.--The uterus is normal. There are no abnormal adnexal masses.. There is no inguinal or pelvic adenopathy. There is no inguinal hernia. . CT/Abdomen/Pelvis without Cont IMPRESSION: No acute findings in the abdomen or pelvis. Specifically there is no acute appendicitis or diverticulitis and no hydronephrosis or renal calculi Electronically Signed: Jadon Leo MD at 7:51 EST Tel , Service support , CC: Ivon Lopez DO Vehicle Service Attendant: Signed Ivon Lopez Work Phone: Start: 06-16-2018 End: 06-17-2018 Thoracic Spine 3 Views Comments: See Note; NOTES: [facility] Imaging Services [address] [place] [address] Thoracic Spine 3 Views MR#: [id number] Acct: [id number] Name: SONDRA CURRIE Rep #: [id number] : 1965 F 53 From: Antony Ventura MD PCP: Ivon Lopez DO Status: REG CLI Study: Thoracic Spine 3 Views Date of Exam: 06/16/18 Exam# [id number] Ordering Dr: Ivon Lopez DO STUDY: X-RAY - THORACIC SPINE REASON FOR EXAM: Female, 53 years old. Left-sided upper back pain TECHNIQUE: 3 view(s) of the thoracic spine were obtained. COMPARISON: MRI thoracic spine of May 31, 2014 FINDINGS: Normal kyphosis of the thoracic spine. There is no substantial scoliosis. There is multilevel endplate spondylosis of the thoracic vertebrae. There is multilevel disc space narrowing of the thoracic spine. Degree of disc space narrowing and spondylosis increased since prior MRI. The soft tissue structures are unremarkable. RAD/Thoracic Spine 3 Views IMPRESSION: Multilevel degenerative disc disease and spondylosis, worse since the prior MRI of 2014 Electronically Signed: Antony Ventura MD at 7:55 EST , Service support , CC: Ivon Lopez DO Vehicle Service Attendant: Signed Ivon Lopez Work Phone: Start: 06-09-2017 End: 06-09-2017 Urgent Care Visit Report Comments: See Note; NOTES: [facility] [address] [place] [address] [address] [place] [address] OFFICE VISIT Date of Service: 06/09/17 MR#: [id number] Acct: [id number] Name: SONDRA CURRIE Rep #: [id number] : 1965 Provider: Zachary GONCALVES Age/Sex: 52/F Location: [facility] Status: Signed Intake Vital Signs06/09/17 Height 5 ft 3 in 06/09/17 Weight: 215 lb 06/09/17 Body Mass Index (BMI) 38.0 Intake Visit Reasons: PHYSICAL [employer] Required: No Is patient in pain?: No Allergies No Known Allergies Allergy (Verified 10/25/13 14:26) Medications Colestipol Tablet [Colestid Tablet] 1 gm PO DAILY 10/25/13 [History Confirmed 06/09/17] Minocycline [Minocin] 100 mg PO DAILY 10/25/13 [History Confirmed 06/09/17] Propranolol HCl [Inderal LA (Beta Babak)] 80 mg PO DAILY 10/25/13 [History Confirmed 06/09/17] PFSH Medical History Anemia (Acute) Severe headache (Acute) Shoulder pain (Acute) Social History Smoking Status: Never smoker HPI PHYSICAL: Details: SONDRA CURRIE, is a 52 F who presents to the office today for Office Procedures Physical Exam Coding PE Coding Sports/School Physical: No DOT PE: No Pre-employment PE: Yes Assessment AND Plan Problems 1. Physical exam, pre-employment Z02.1 Plan See attached scanned documents dated June 09, 2017 Coding Level of Care Code No Charge Diagnoses Physical exam, pre-employment Z02.1 Additional Codes PE Coding - Pre-employment PE: Yes (PREPE) 06/09/17 1217 <Electronically signed by Zachary GONCALVES> Date Zachary GONCALVES Cosigner Signature: Date (if applicable) CC: Ivon Lopez Start: 09-30-2015 End: 10-01-2015 Ribs Uni Min 3V w/PA Chest Comments: See Note; NOTES: [facility] Imaging Services [address] [place] [address] Dejondana 4d Ribs Uni Min 3V w/PA Chest MR#: [id number] Acct: [id number] Name: SONDRA CURRIE Rep #: [id number] : 1965 F 50 From: Kanchan Lopez MD PCP: Ivon Lopez DO Status: REG CLI Study: Ribs Uni Min 3V w/PA Chest Date of Exam: 09/30/15 Exam# [id number] Ordering Dr: Ivon Lopez DO STUDY: X-RAY CHEST REASON FOR EXAM: Female, 50 years old. left anterior rib pain x years, no trauma TECHNIQUE: Frontal and lateral views of the chest. COMPARISON: None. FINDINGS: The lungs are clear and expanded. There is no demonstrated pleural abnormality. Normal size heart. Normal mediastinum and sloan. Normal visualized pulmonary arteries. Normal visualized aortic arch and descending thoracic aorta. Normal visualized thoracic spine. Normal visualized ribs, clavicles, and shoulders. There is no demonstrated abnormality of the visualized soft tissue structures of the upper abdomen. IMPRESSION: Normal x-ray examination of the chest. Electronically Signed: Kanchan Lopez MD at 14:23 EDT Tel , Service support [phone], STUDY: X-RAY - UNILATERAL RIBS ( LEFT ) REASON FOR EXAM: Female, 50 years old. left anterior rib pain x years, no trauma TECHNIQUE: 4 view(s) of the ribs. COMPARISON: None. FINDINGS: Normal visualized ribs without a demonstrated fracture. The visualized lung is clear and expanded. IMPRESSION: Normal x-ray examination of the ribs. Electronically Signed: Kanchan Lopez MD at 14:24 EDT Tel , Service support [phone], RAD/Ribs Uni Min 3V w/PA Chest IMPRESSION: Normal x-ray examination of the ribs. Electronically Signed: Kanchan Lopez MD at 14:24 EDT Tel , Service support [phone], CC: Ivon Lopez DO Vehicle Service Attendant: Signed Ivon Lopez Work Phone: Start: 01-03-2015 End: 01-04-2015 Abdomen/Pelvis WITH Contrast Comments: See Note; NOTES: [facility] Imaging Services [address] [place] [address] CAT Scan Report MR#: [id number] Acct: [id number] Name: SONDRA CURRIE Rep #: [id number] : 1965 F 49 From: Kris Packer DO PCP: Ivon Lopez DO Status: REG CLI Study: Abdomen/Pelvis WITH Contrast Date of Exam: 01/03/15 Exam# [id number] Ordering Dr: Ivon Lopez DO STUDY: CT ABDOMEN AND PELVIS WITH CONTRAST REASON FOR EXAM: Female, 49 years old. Lower rip pain, left flank pain RADIATION DOSAGE (If Supplied By Facility): CTDIvol = ( 16.51 ) mGy, DLP = ( 1912.29 ) mGycm TECHNIQUE: Transaxial images were obtained from the dome of the diaphragm to the symphysis pubis without oral contrast. 100ML ml of Isovue 300 contrast was administered. Sagittal and coronal images were reconstructed. COMPARISON: None. FINDINGS: The visualized lung bases are unremarkable. The visualized portions of the heart are within normal limits. Normal liver. Normal gallbladder and extrahepatic biliary system. Normal spleen. Normal pancreas. Normal bilateral adrenal glands. Normal right kidney. Normal left kidney. Small hiatal hernia. Normal small intestine. Mild diverticulosis of the colon. The appendix is visualized and appears normal. Normal abdominal aorta. Normal inferior vena cava. Normal retroperitoneum. Normal urinary bladder. Possible 1.6 cm left adnexal cystic lesion. Normal abdominal wall. Mild degenerative vertebral changes. IMPRESSION: Small hiatal hernia. Mild diverticulosis. Small left adnexal cystic lesion. Electronically Signed: Kris Packer DO at 9:12 EDT Tel [phone], Service support [phone], CC: Ivon Lopez DO Vehicle Service Attendant: Signed Ivon Lopez Work Phone: Start: 05-31-2014 End: 05-31-2014 Spine Thoracic W/WO Contrast Comments: See Note; NOTES: [facility] Imaging Services [address] [place] [address] MRI Report MR#: [id number] Acct: [id number] Name: SONDRA CURRIE Rep #: [id number] : 1965 F 49 From: Gutierrez Davey MD PCP: Ivon Lopez DO Status: REG CLI Study: Spine Thoracic W/WO Contrast Date of Exam: 05/31/14 Exam# [id number] Ordering Dr: Ivon Lopez DO STUDY: MRI THORACIC SPINE WITH AND WITHOUT CONTRAST REASON FOR EXAM: Female, 49 years old. Possible lesion from previous MRI and TECHNIQUE: Sagittal and axial T1 and T2-weighted pulse sequences were obtained following intravenous injection of 8 mL of Gadavist. COMPARISON: Prior unenhanced MRI of the thoracic spine on 04-25-14. FINDINGS: Normal kyphosis of the thoracic spine. There is no substantial scoliosis. Again noted is mild degree of multilevel degenerative disc disease as described on the previous nonenhanced MRI. No abnormal areas of enhancement are noted within the spinal cord. Previously noted syrinx is not clearly identified on the T1-weighted pulse sequences. Normal conus medullaris that terminates at the . The soft tissue structures are unremarkable. There is no enhancing abnormality. IMPRESSION: Thoracic syrinx as described on the nonenhanced MRI. Multilevel degenerative disc disease is noted previously. No abnormal areas of enhancement noted Electronically Signed: Gutierrez Davey MD, FACR at 19:29 EST , Service support [phone], CC: Ivon Lopez DO Vehicle Service Attendant: Signed Ivon Lopez Work Phone: Start: 04-25-2014 End: 04-25-2014 Spine Thoracic (Routine) Comments: See Note; NOTES: [facility] Imaging Services [address] [place] [address] MRI Report MR#: [id number] Acct: [id number] Name: SONDRA CURRIE Rep #: [id number] : 1965 F 49 From: Man Guerra MD PCP: Ivon Lopez DO Status: REG CLI Study: Spine Thoracic (Routine) Date of Exam: 04/25/14 Exam# [id number] Ordering Dr: Ivon Lopez DO STUDY: MRI THORACIC SPINE WITHOUT CONTRAST REASON FOR EXAM: Female, 49 years old. Pain TECHNIQUE: Standardized fat and water weighted pulse sequences were obtained in the sagittal and axial planes. COMPARISON: None. FINDINGS: Normal kyphosis of the thoracic spine. There is mild scoliosis deformity No evidence for acute fracture or subluxation. There is multilevel disc degeneration. There is a tiny central disc protrusion at T6-7 without spinal stenosis or cord compression. There is minimal bulging of the disc at T10-11 and T11-12 without spinal stenosis or cord compression.. There is a syrinx noted in the lower cord spanning T11-T12 and a second segmental syrinx within the mid thoracic cord. Normal conus medullaris The soft tissue structures are unremarkable. IMPRESSION: No evidence for acute fracture or subluxation. There is mild multilevel disc disease but no significant disc protrusion spinal stenosis or cord compression. There is multisegmental syrinx of indeterminate etiology. Would recommend limited repeat study with contrast to evaluate for possible intramedullary lesion Electronically Signed: Man Guerra MD at 22:45 EST , Service support [phone], CC: Ivon Lopez DO Vehicle Service Attendant: Signed Ivon Lopez Work Phone: Start: 04-25-2014 End: 04-26-2014 Ribs Unil 2V No CXR Comments: See Note; NOTES: [facility] Imaging Services [address] [place] [address] Radiology Report MR#: [id number] Acct: [id number] Name: SONDRA CURRIE Rep #: [id number] : 1965 F 49 From: Juanito Elizabeth MD PCP: Ivon Lopez DO Status: REG CLI Study: Ribs Unil 2V No CXR Date of Exam: 04/25/14 Exam# [id number] Ordering Dr: Ivon Lopez DO STUDY: X-RAY - UNILATERAL RIBS ( LEFT ) REASON FOR EXAM: Female, 49 years old. Pain. TECHNIQUE: 4 view(s) of the ribs. COMPARISON: None. FINDINGS: Normal visualized ribs without a demonstrated fracture. The visualized lung is clear and expanded. IMPRESSION: Normal x-ray examination of the ribs. Electronically Signed: Juanito Elizabeth MD at 10:13 EST Tel [phone], Service support [phone], RAD/Ribs Unil 2V No CXR IMPRESSION: Normal x-ray examination of the ribs. Electronically Signed: Juanito Elizabeth MD at 10:13 EST Tel [phone], Service support [phone], CC: Ivon Lopez DO Vehicle Service Attendant: Signed Ivon Lopez Work Phone: Start: 11-06-2013 End: 11-06-2013 Operative Report Comments: See Note; NOTES: [facility] Medical Records Department [address] [place] [address] Operative Report MR#: [id number] Acct: [id number] Name: SONDRA CURRIE Rep #: [id number] : 1965 48 From: James Cooper MD PCP: Ivon Lopez DO Status: REG CLI DATE OF SERVICE: PROCEDURE PERFORMED: Colonoscopy to the cecum with biopsy of mucosa. PREOPERATIVE DIAGNOSES: The patient with abdominal pain, some weight loss, episodic diarrhea. POSTOPERATIVE DIAGNOSES: Normal-looking mucosa, some retained liquid in the colon, rule out any microscopic colitis. No obvious large polyps seen, normal-looking terminal ileum. MEDICATIONS GIVEN: Anesthesia via MAC. INSTRUMENT: Olympus adjustable pediatric colonoscope. DESCRIPTION OF PROCEDURE: Informed consent was obtained prior to the procedure. The patient was brought to procedure room, placed shoulder down, given the above medications. Anesthesia via MAC. The rectal exam showed no palpable masses. The colonoscope was passed in retrograde and mucosa appeared normal. Throughout the sigmoid colon, there were scattered diverticula to the sigmoid area. Up across splenic flexure, there was some retained liquid in the colon. There were no obvious large polyps seen. Down the right colon, the cecum was visualized. There was a large amount of liquid at the base of the cecum. This was sucked up in the colonoscope. There were no obvious large polyps seen. The terminal ileum was intubated. There was no evidence of ulcerations or inflammation of the terminal ileum. Back up the ascending colon, random biopsies were taken throughout the right colon. Across the transverse colon, there are no obvious large polyps seen. Near the splenic flexure, random biopsies were taken down through the left colon. Again, there was some diverticulosis throughout that area. No evidence of any significant colitis. Down towards the rectum, retroflexion was performed. There were no abnormalities in the rectal mucosa. The colon was decompressed. The patient tolerated the procedure well. IMPRESSION: Some abdominal pain with weight loss, episodic diarrhea. PLAN: Follow up the biopsies. Rule out any microscopic colitis. MD Kade Link C: Ivon Lopez DO T: [facility] JOB: [id number] 11/06/13 1326 <Electronically signed by James Cooper MD> Date James Cooper MD CC: Ivon Lopez DO; James Cooper Date Dictated: 10/30/13813 Date Transcribed: 10/30/13813 Vehicle Service Attendant: Signed James Cooper Work Phone: Start: 10-26-2013 End: 10-26-2013 12 lead ECG Comments: See Note; NOTES: [facility] Cardiovascular Services [address] [place] [address] [place] [facility]/25/13 1338 MR#: [id number] Acct: [id number] Name: SONDRA CURRIE Rep #: [id number] : 1965 48 From: River Burroughs MD Attending Dr: James Cooper Status: PRE CLI Ordering Dr: Ericka Ayon MD Date: 10/25/13 Location: EN Sex: F C Admitted: Test Reason : Blood Pressure : / mmHG Vent. Rate : 063 BPM Atrial Rate : 063 BPM P-R Int : 164 ms QRS Dur : 080 ms QT Int : 406 ms P-R-T Axes : 000 005 022 degrees QTc Int : 415 ms Poor data quality, interpretation may be adversely affected Normal sinus rhythm Borderline ECG Confirmed by RIVER BURROUGHS ([id number]), editor sound JEN CORCORAN ([id number]) on 10/26/2013 3: 44:05 PM Referred By: JUAN M COOPER Confirmed By:RIVER BURROUGHS CC: River Burroughs MD; Ivon John DELEON Date Dictated: 10/25/13 1338 Date Transcribed: 10/25/131337 Vehicle Service Attendant: Signed Ivon Lopez Start: 09-21-2013 End: 09-21-2013 Abdomen Limited Comments: See Note; NOTES: [facility] Imaging Services [address] [place] [address] Ultrasound Report MR#: [id number] Acct: [id number] Name: SONDRA CURRIE Rep #: [id number] : 1965 F 48 From: Juanito Elizabeth MD PCP: Ivon Lopez DO Status: REG CLI Study: Abdomen Limited Date of Exam: 09/21/13 Exam# [id number] Ordering Dr: James Cooper MD STUDY: ABDOMINAL ULTRASOUND - RIGHT UPPER QUADRANT REASON FOR VISIT: Female, 48 years old. Upper abdominal pain and nausea. TECHNIQUE: Ultrasound evaluation of the right upper quadrant was performed with real-time and static de oliveira-scale imaging. TECHNICAL QUALITY: Adequate. COMPARISON: Comparison is made with prior examination dated January 12, 2011. FINDINGS: Liver: The liver measures 13.4 cm. There is increased echogenicity consistent with fatty infiltration. Mild dilatation of the intrahepatic biliary ducts. There is hepatic color flow. The direction of portal flow is hepatopetal. There is no demonstrated mass lesion. Gallbladder: Normal distended gallbladder. The gallbladder wall measures 2.0 mm. There is a negative sonographic Graff's sign. There is no pericholecystic fluid. There are no gallstones. Common Bile Duct (C.B.D.): The common bile duct measures 2.1 mm. Pancreas: Not well visualized due to overlying bowel gas. Right Kidney: Normal size of the right kidney. The right kidney measures 12.4 cm. Normal renal cortex. The right cortex measures 2.0 cm. There is no demonstrated renal mass or cyst. There is mild hydronephrosis of the right kidney. IMPRESSION: Fatty infiltration of the liver. Mild dilatation of the intrahepatic biliary ducts. Minimal right hydronephrosis. Electronically Signed: Juanito Elizabeth MD at 13:59 EDT Tel [phone], Service support [phone], CC: Ivon Lopez DO; James Cooper Vehicle Service Attendant: Signed James Cooper Work Phone: History of operative procedure on knee H/O right knee surgery Dr. Ivon Lopez Work Phone: Comment on above: 2019 Plan of Treatment Date Care Activity Detail Author Start: 01-15-2024 Covid-19 Vaccine ( season) Covid-19 Vaccine ( season) [facility] Start: 01-15-2024 Influenza vaccination Influenza Vacc ine (#1) [facility] Start: 2023 RSV Vaccine (1 - Ris k 60-74 years 1-dose series) RSV Vaccine (1 - Risk 60-74 years 1-dose series) [facility] Start: 02-17-2023 Procedure Education [facility]; [facility] Work Phone: Start: 02-17-2023 Provider Instruction s for Treatment [facility]; [facility] Work Phone: Start: 02-11-2023 End: 02-11-2023 Patient encounter procedure 02/11/2023 3:30 PM EDT Office Visit [facility] [address] [place] [id number] Maribell Lucio, ASSISTANT ASSOCIATE PROFESSOR-DIRECTOR OF MEDICAL EDUCATION [address] [facility] [place] [address] [facility] Start: 01-28-2023 End: 01-28-2023 Patient encounter procedure 01/28/2023 4:00 PM EDT Office Visit [facility] [address] [place] [id number] Maribell Lucio, ASSISTANT ASSOCIATE PROFESSOR-DIRECTOR OF MEDICAL EDUCATION [address] [facility], [address] [place] [id number] [facility] Start: 01-14-2023 Influenza vaccination Influenza Vacc ine (#1) [facility] Start: 12-28-2022 End: 12-29-2023 CT Chest WO contrast CT chest wo IV contrast Imaging Routine Chest injury, initial encounter Rib pain Contusion of both lungs, initial encounter Expected: 12/28/2022, Expires: 12/29/2023 [facility] Service Area Work Phone: Comment on above: Expected: 12/28/2022 , Expires: 12/29/2023 Start: 01-21-2022 Procedure Education [facility]; [facility] Work Phone: Start: 01-21-2022 Provider Instruction s for Treatment [facility]; [facility] Work Phone: Start: 01-04-2022 Procedure Education [facility]; [facility] Work Phone: Start: 01-04-2022 Provider Instruction s for Treatment [facility]; [facility] Work Phone: Start: 12-25-2021 Procedure Education [facility]; [facility] Work Phone: Start: 12-25-2021 Provider Instruction s for Treatment [facility]; [facility] Work Phone: Start: 12-11-2021 Provider Instruction s for Treatment [facility]; [facility] Work Phone: Start: 12-02-2021 DTaP/Tdap/Td Vaccine s (2 - Td or Tdap) DTaP/Tdap/Td Vaccines (2 - Td or Tdap) [facility] Start: 12-02-2021 Urine microalbumin profile DTaP,Tdap,Td Vaccine (2 - Td or Tdap) [facility] Start: 05-20-2021 Procedure Education [facility]; [facility] Work Phone: Start: 05-20-2021 Provider Instruction s for Treatment [facility]; [facility] Work Phone: Start: 05-06-2021 Procedure Education [facility]; [facility] Work Phone: Start: 05-06-2021 Provider Instruction s for Treatment [facility]; [facility] Work Phone: Start: 04-23-2021 Provider Instruction s for Treatment [facility]; [facility] Work Phone: Start: 04-06-2021 Procedure Education [facility]; [facility] Work Phone: Start: 04-06-2021 Provider Instruction s for Treatment [facility]; [facility] Work Phone: Start: 03-25-2021 Procedure Education [facility]; [facility] Work Phone: Start: 03-25-2021 Provider Instruction s for Treatment [facility]; [facility] Work Phone: Start: 03-11-2021 Procedure Education [facility]; [facility] Work Phone: Start: 03-11-2021 Provider Instruction s for Treatment [facility]; [facility] Work Phone: Start: 02-21-2020 Procedure Education [facility] Work Phone: Start: 02-21-2020 Provider Instruction s for Treatment [facility] Work Phone: Start: 12-18-2019 Procedure Education [facility] Work Phone: Start: 12-18-2019 Provider Instruction s for Treatment [facility] Work Phone: Start: 11-27-2019 Culture bct isol&prsmptv id isolate ea urine URINE MALCOLM CULTURE-IDENTIFICATN (30799) [facility] Work Phone: Start: 11-27-2019 Procedure Education [facility] Work Phone: Start: 11-27-2019 Provider Instruction s for Treatment [facility] Work Phone: Start: 08-30-2019 Procedure Education [facility] Work Phone: Start: 08-30-2019 Provider Instruction s for Treatment [facility] Work Phone: Start: 02-14-2019 Procedure Education [facility] Work Phone: Start: 02-14-2019 Provider Instruction s for Treatment [facility] Work Phone: Start: 09-22-2018 Provider Instruction s for Treatment [facility] Work Phone: Start: 09-06-2018 Procedure Education [facility] Work Phone: Start: 09-06-2018 Provider Instruction s for Treatment [facility] Work Phone: Start: 08-25-2018 Provider Instruction s for Treatment [facility] Work Phone: Start: 07-31-2018 Provider Instruction s for Treatment [facility] Work Phone: Start: 06-23-2018 Provider Instruction s for Treatment [facility] Work Phone: Start: 06-23-2018 Thyrotropin Qn TSH (12033) [facility] Work Phone: Start: 06-23-2018 Urnls dip stick/tabl et reagent auto microscopy URINALYSIS, W/ MICRO (26468) [facility] Work Phone: Start: 06-23-2018 Urine albumin quantitative MICROALBUMIN: CREATININE RATIO (17275) AND (46598) [facility] Work Phone: Start: 06-23-2018 Comprehensive metabo lic panel METABOLIC PANEL, COMPREHENSIVE (44557) [facility] Work Phone: Start: 06-23-2018 Protein mass conc LIPOPROTEIN, BLD, BY NMR (40465) [facility] Work Phone: Start: 06-23-2018 Blood count complete auto&auto difrntl wbc CBC W/AUTO DIFF WBC (53776) [facility] Work Phone: Start: 06-16-2018 Procedure Education [facility] Work Phone: Start: 06-16-2018 Provider Instruction s for Treatment [facility] Work Phone: Start: 06-16-2018 CRP mass conc C-REACTIVE PRO TEIN (91117) [facility] Work Phone: Start: 06-16-2018 Sedimentation rate r bc non-automated Sed Rate Erythrocyte (98150) [facility] Work Phone: Start: 11-08-2017 Provider Instruction s for Treatment [facility] Work Phone: Start: 09-30-2017 Procedure Education [facility] Work Phone: Start: 09-30-2017 Provider Instruction s for Treatment [facility] Work Phone: Start: 08-23-2017 Provider Instruction s for Treatment [facility] Work Phone: Start: 08-23-2017 Assay of thyroid stimulating hormone tsh [facility]; [facility] Work Phone: Start: 08-23-2017 Thyrotropin Qn TSH (87393) [facility] Work Phone: Start: 08-23-2017 Urnls dip stick/tabl et reagent auto microscopy URINALYSIS, W/ MICRO (42573) [facility] Work Phone: Start: 08-23-2017 Urine albumin quantitative MICROALBUMIN: CREATININE RATIO (94252) AND (35276) [facility] Work Phone: Start: 08-23-2017 Comprehensive metabo lic panel [facility] Work Phone: Start: 08-23-2017 Blood count complete auto&auto difrntl wbc [facility] Work Phone: Start: 08-23-2017 Lipid panel [facility] Work Phone: Start: 05-06-2017 Provider Instruction s for Treatment [facility] Work Phone: Start: 03-11-2017 Procedure Education [facility] Work Phone: Start: 03-11-2017 Provider Instruction s for Treatment [facility] Work Phone: Start: 02-07-2017 Procedure Education [facility] Work Phone: Start: 02-07-2017 Provider Instruction s for Treatment [facility] Work Phone: Start: 02-07-2017 Urnls dip stick/tabl et reagent auto microscopy [facility] Work Phone: Start: 02-07-2017 Urine albumin quantitative [facility] Work Phone: Start: 01-13-2017 End: 01-13-2017 Appointment Appointment [facility] Work Phone: Start: 06-02-2016 Procedure Education [facility] Work Phone: Start: 06-02-2016 Provider Instruction s for Treatment [facility] Work Phone: Start: 04-07-2016 Provider Instruction s for Treatment [facility] Work Phone: Start: 09-29-2015 Patient Education [facility] Work Phone: Start: 09-29-2015 Procedure Education [facility] Work Phone: Start: 09-29-2015 Provider Instruction s for Treatment [facility] Work Phone: Start: 11-01-2014 Procedure Education [facility] Work Phone: Start: 11-01-2014 Provider Instruction s for Treatment [facility] Work Phone: Start: 11-01-2014 25 hydroxy includes fractions if performed [facility] Work Phone: Start: 11-01-2014 Assay of thyroid stimulating hormone tsh [facility]; [facility] Work Phone: Start: 11-01-2014 Thyrotropin Qn TSH (12520) [facility] Work Phone: Start: 11-01-2014 Urnls dip stick/tabl et reagent auto microscopy [facility] Work Phone: Start: 11-01-2014 Urine albumin quantitative [facility] Work Phone: Start: 11-01-2014 Comprehensive metabo lic panel [facility] Work Phone: Start: 11-01-2014 Blood count complete auto&auto difrntl wbc [facility] Work Phone: Start: 11-01-2014 ALP enzyme act/vol ALKALINE PH OSPHATASE (74647) [facility] Work Phone: Start: 11-01-2014 Assay of phosphatase alkaline [facility]; [facility] Work Phone: Start: 11-01-2014 C-reactive protein [facility]; [facility] Work Phone: Start: 11-01-2014 CRP mass conc C-REACTIVE PRO TEIN (56262) [facility] Work Phone: Start: 11-01-2014 Sedimentation rate r bc non-automated [facility] Work Phone: Start: 03-18-2014 Blood count complete auto&auto difrntl wbc [facility] Work Phone: Start: 03-18-2014 Provider Instruction s for Treatment [facility] Work Phone: Start: 01-04-2014 Provider Instruction s for Treatment [facility] Work Phone: Start: 07-27-2013 Patient Education [facility] Work Phone: Start: 07-27-2013 Provider Instruction s for Treatment [facility] Work Phone: Start: 07-27-2013 Assay of iron [facility]; [facility] Work Phone: Start: 07-27-2013 Iron mass conc IRON (27262) [facility] Work Phone: Start: 07-27-2013 Organic acid 1 quantitative [facility] Work Phone: Start: 07-24-2013 Provider Instruction s for Treatment [facility] Work Phone: Start: 05-03-2013 Provider Instruction s for Treatment [facility] Work Phone: Start: 2013 Pneumococcal Vaccine : 50+ (1 of 1 - PCV) Pneumococcal Vaccine: 50+ (1 of 1 - PCV) [facility] Start: 2013 Shingrix Vaccine (1 of 2) Shingrix Vaccine (1 of 2) [facility] Start: 2013 Zoster Vaccines (1 o f 2) Zoster Vaccines (1 of 2) [facility] Start: 01-26-2013 Provider Instruction s for Treatment [facility] Work Phone: Start: 01-04-2013 Provider Instruction s for Treatment [facility] Work Phone: Start: 12-20-2012 Patient Education [facility] Work Phone: Start: 12-20-2012 Provider Instruction s for Treatment [facility] Work Phone: Start: 02-24-2012 Patient Education [facility]pr [facility] Work Phone: Start: 02-24-2012 Provider Instruction s for Treatment [facility] Work Phone: Start: 02-07-2012 Patient Education [facility]pr [facility] Work Phone: Start: 02-07-2012 Provider Instruction s for Treatment [facility] Work Phone: Start: 01-25-2012 Provider Instruction s for Treatment [facility] Work Phone: Start: 01-13-2012 Patient Education [facility]pr [facility] Work Phone: Start: 01-13-2012 Provider Instruction s for Treatment [facility] Work Phone: Start: 12-24-2011 Provider Instruction s for Treatment [facility] Work Phone: Start: 12-10-2011 Patient Education [facility] Work Phone: Start: 01-05-2011 Blood occult peroxid ase actv qual feces 1 deter [facility] Work Phone: Start: 01-05-2011 Ova&parasites direct smears concentration & id [facility] Work Phone: Start: 01-05-2011 Cul bact stool aerob ic isol salmonella&shigell [facility] Work Phone: Start: 01-05-2011 Culture bacterial an y source anaerobic iso&id [facility] Work Phone: Start: 01-05-2011 Leukocyte assmt feca l qual/semiquantitative [facility] Work Phone: Start: 01-05-2011 Provider Instruction s for Treatment [facility] Work Phone: Start: 09-03-2010 Provider Instruction s for Treatment [facility] Work Phone: Start: 08-21-2010 Provider Instruction s for Treatment [facility] Work Phone: Start: 08-07-2010 Provider Instruction s for Treatment [facility] Work Phone: Start: 03-30-2010 Hepatitis b surf antibody hbsab [facility] Work Phone: Start: 03-30-2010 Provider Instruction s for Treatment [facility] Work Phone: Start: 01-07-2010 Provider Instruction s for Treatment [facility] Work Phone: Start: 12-04-2009 Provider Instruction s for Treatment [facility] Work Phone: Start: 10-27-2009 Assay of thyroid stimulating hormone tsh [facility]; [facility] Work Phone: Start: 10-27-2009 Thyrotropin Qn TSH (44545) [facility] Work Phone: Start: 10-27-2009 Glucose mass conc Glucose, PP/ 2 Hour (69786) [facility] Work Phone: Start: 10-27-2009 Glucose quantitative blood xcpt reagent strip [facility] Work Phone: Start: 10-27-2009 Lipid panel [facility] Work Phone: Start: 10-27-2009 Provider Instruction s for Treatment [facility] Work Phone: Start: 08-21-2009 Provider Instruction s for Treatment [facility] Work Phone: Start: 04-28-2009 Lipid panel [facility] Work Phone: Start: 11-22-2008 Assay of thyroid stimulating hormone tsh [facility]; [facility] Work Phone: Start: 11-22-2008 Thyrotropin Qn TSH (04446) [facility] Work Phone: Start: 11-22-2008 Glucose mass conc Glucose (23112) [facility] Work Phone: Start: 11-22-2008 Glucose quantitative blood xcpt reagent strip [facility]; [facility] Work Phone: Start: 11-22-2008 Lipid panel [facility] Work Phone: Start: 07-25-2008 Provider Instruction s for Treatment [facility] Work Phone: Start: 07-01-2008 Provider Instruction s for Treatment [facility] Work Phone: Start: 02-24-2008 Diabetes Screening Diabetes Screenin g [facility] Start: 02-24-2008 Lipid panel Lipid Screening [facility] Start: 02-24-2008 Screening for malign ant neoplasm of colon [facility] Start: 11-23-2007 Provider Instruction s for Treatment [facility] Work Phone: Start: 2003 Screening for malign ant neoplasm of breast [facility] Start: 02-24-1984 Screening for malign ant neoplasm of cervix [facility] Start: 1981 Anxiety Screening Anxiety Screening [facility] Start: 1981 [facility]: 1981 Diabetes mellitus screening Diabetes Screening [facility] Start: 1981 Hepatitis C screening Hepatitis C [facility] Start: 1981 HIV screening HIV Screening [facility] Start: 02-24-1964 MMR Vaccines (1 of 1 - Standard series) MMR Vaccines (1 of 1 - Standard series) [facility] Start: 1963 COVID-19 Vaccine (#1) COVID-19 Vacci ne (#1) [facility] Start: 1963 Hepatitis B Vaccines (1 of 3 - 3-dose series) Hepatitis B Vaccines (1 of 3 - 3-dose series) [facility] Start: 1963 HIV screening HIV Screening [facility] Start: 1963 Lipid panel Lipid Panel [facility] Start: 1963 Screening for malign ant neoplasm of colon [facility] Start: 1963 Yearly Adult Physical Yearly Adult P hysical [facility] End: 06-06-2025 DBT Breast - bilateral screening GREG SCREENING W [facility]STER Radiology Routine Abnormal finding on breast imaging 1 Occurrences starting 05/07/2024 until 06/06/2025 [facility] Comment on above: 1 Occurrences starti ng 05/07/2024 until 06/06/2025 Patient referral [facility] Work Phone: End: 06-06-2025 US Breast - left limited US BREAST LTD LEFT Radiology Routine Abnormal finding on breast imaging 1 Occurrences starting 05/07/2024 until 06/06/2025 [facility] Work Phone: Comment on above: 1 Occurrences starti ng 05/07/2024 until 06/06/2025 [facility] Work Phone: [facility] Work Phone: [facility] Work Phone: [facility] Work Phone: [facility] Work Phone: [facility] Work Phone[facility] Work Phone: [facility] Work Phone: [facility] Work Phone: [facility] Work Phone[facility] Work Phone: [facility] Work Phone: [facility] Work Phone: [facility] Work Phone: [facility] Work Phone: [facility] Work Phone: [facility] Work Phone: [facility] Work Phone: [facility] Work Phone[facility] Work Phone[facility] Work Phone: [facility] Work Phone: [facility] Work Phone: [facility] Work Phone: Immunizations Immunization Date Immunization Notes Care Provider Cosmo marcus 12-03-2011 tetanus toxoid, redu leisa diphtheria toxoid, and acellular pertussis vaccine, adsorbed Maribell [place] ASSISTANT ASSOCIATE PROFESSOR-DIRECTOR OF MEDICAL EDUCATION Work Phone: [facility] Work Phone: Payers Date Payer Category Payer Self-pay [id number] 2022 Unknown [id number] 2013 Unknown 2013 Unknown [id number] 2012 Unknown [id number] 2010 Unknown [id number] 1963 Unknown [id number] 2.16.84 [id number] 1963 Unknown [id number] 2.16.8 [id number] 1963 Unknown [id number] 2.16.8 [id number] 1963 Unknown [id number] 2.16.8 [id number] 1963 Unknown [id number] 2.16.8 [id number] 1963 Unknown [id number] 2.16.8 [id number] Unknown [id number] Unknown [id number] Unknown [id number] Unknown [id number] 2.16.8 [id number] Unknown [id number] 2.16.8 [id number] Unknown [id number] 2.16.8 [id number] Unknown [id number] 2.16.8 [id number] Unknown [id number] 2.16.8 [id number] Unknown [id number] 2.16.8 [id number] Unknown [id number] 2.16.8 [id number] Unknown [id number] 2.16.8 [id number] Unknown [id number] 2.16.8 [id number] Unknown [id number] 2.16.8 [id number] Unknown [id number] 2.16.8 [id number] Social History Date Type Detail Facility Start: 12-28-2022 End: 05-07-2024 Caffeine Use Never smoker [facility] Work Phone: Comment on above: 1 cup coffee qd 2 cu ps tea qd, rare soda Light 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 [facility] Work Phone: Never smoker. [facility]; [facility] Work Phone: Start: 02-02-2022 End: 09-11-2023 Tobacco smoking status NHIS Unknown if ever smoked [facility] Start: 1965 Sex Assigned At Female W [facility] Start: 12-28-2022 End: 09-11-2023 Tobacco smoking status NHIS Never smoked tobacco [facility] Work Phone: Start: 12-28-2022 End: 05-07-2024 Tobacco use and exposure Smokeless tobacco non-user [facility] Work Phone: Start: 12-28-2022 End: 01-28-2023 Alcohol intake Lifetime non-drinker (finding) [facility] Work Phone: Start: 12-28-2022 End: 05-07-2024 Tobacco use panel [facility] Start: 1965 [facility] Start: 12-18-2022 End: 02-11-2023 Exposure to SARS-CoV-2 (event) Not sure [facility] Start: 05-07-2024 Alcoholic beverage intake Current drinker of alcohol (finding) [facility] National Score (1-100), lower number is lower risk 65 [facility] Functional Status Date Assessment Result Facility 06-23-2018 LP-IR Score 66 [facility] Work Phone: Comment on above: INSULIN RESISTANCE [place] ALONSO <--Insulin Sensitive Insulin Resistant--> Percentile in Reference PopulationInsulin Resistance ScoreLP-IR Score Low 25th 50th 75th High <27 27 45 63 >63LP-IR Score is inaccurate if patient is non-fasting. .The LP-IR score is a laboratory developed index that has beenassociated with insulin resistance and diabetes risk and should beused as one component of a physician's clinical assessment. TheLP-IR score listed above has not been cleared by the [place] Food andDrug Administration. PATIENT WAS FASTINGP ERFORMED BY: BN [facility] [address] [id number] BY: CB [facility] [id number] [facility] [id number] Clinical Notes 12-13-2022 to 06-11-2024 Telephone Encounter - Edmond Trejo RN - 06/11/2024 11:49 AM ESTTelephone Encounter - Edmond Trejo RN - 06/11/2024 11:49 AM ESTTelephone Encounter - Richelle Zambrano - 06/11/2024 11:25 AM EST Note Date & Type Note Facility 06-11-2024 Telephone encount er Note Order placed for diagnostic and sent to providers for signing.Edmond Trejo RN [facility] 06-11-2024 Miscellaneous Notes Formattin g of this note might be different from the original. Order placed for diagnostic and sent to providers for signing.Edmond Trejo RN Patient transferred to [facility] for schedule mammogram and US. Only screening mammogram order is available in chart, provider in previous messages stated diagnostic was to be completed. Please submit correct order then notify patient when available in chart for scheduling. Contacted Pt and advised we do not have an option to order Thermogram and a mammogram is advised. Pt transferred to [facility] to schedule.Edmond Trejo RN not sure what a thermogram is, i tried to order it and it gave me nothing Patient is requesting we use home phone at this time to contact her. Just noticed this patient has a screening order for a diagnostic issue I think we would need a DX mammography if not doing what patient requested. Patient last seen on 05/07/2024. A mammogram was ordered. Patient called in asking if she could have that changed to have a thermogram? Patient can be reached back on her home phone at [phone] and it is ok to leave a detailed message if she does not answer. documented in this encounter [facility] 06-11-2024 Note HNO ID: [id number] Author: EDMOND TREJO RN Service: ? Author Type: Registered Nurse Type: Progress Notes Filed: 06/11/2024 11:42 Note Text: Please sign updated order [facility] 06-11-2024 Telephone encount er Note Patient transferred to [facility] for schedule mammogram and US. Only screening mammogram order is available in chart, provider in previous messages stated diagnostic was to be completed. Please submit correct order then notify patient when available in chart for scheduling. [facility] 06-11-2024 Telephone encount er Note Contacted Pt and advised we do not have an option to order Thermogram and a mammogram is advised. Pt transferred to [facility] to schedule.Edmond Trejo RN [facility] 06-11-2024 Telephone encount er Note not sure what a thermogram is, i tried to order it and it gave me nothing [facility] Work Phone: 06-07-2024 Telephone encount er Note Patient is requesting we use home phone at this time to contact her. [facility] 06-07-2024 Telephone encount er Note Just noticed this patient has a screening order for a diagnostic issue I think we would need a DX mammography if not doing what patient requested. [facility] 06-07-2024 Telephone encount er Note Patient last seen on 05/07/2024. A mammogram was ordered. Patient called in asking if she could have that changed to have a thermogram? Patient can be reached back on her home phone at [phone] and it is ok to leave a detailed message if she does not answer. [facility] 05-07-2024 Note HNO ID: [id number] Author: RIVER LA MD Service: ? Author Type: Physician Type: Progress Notes Filed: 05/07/2024 16:16 Note Text: HISTORY AND PHYSICAL - BREAST COMPLAINT Sondra Oliveira Kush 1965 REFERRING PHYSICIAN: Ivon Lopez,* CHIEF COMPLAINT: Abnormal finding on breast imaging (primary encounter diagnosis) HPI: The patient is a 59 year old female with a complaint of an abnormal CT scan of the chest that showed a 2 cm spiculated nodule in the medial lower left breast. States that this is significantly increased in size from the previous CAT scan of the abdomen back in January 11, 2024. It is highly suspicious for primary breast neoplasia. Patient has been complaining of left breast pain now for better than a year. She has not noticed any changes in herself breast exam The patient is being seen by me today at the request of Dr. Ivon Lopez, , DO for my opinion and advice regarding Abnormal finding on breast imaging (primary encounter diagnosis). PAST MEDICAL HISTORY Diagnosis Date Blood pressure elevated without history of HTN IBS (irritable bowel syndrome) Knee pain Migraines 1981 PAST SURGICAL HISTORY Procedure Laterality Date PAST SURGICAL HISTORY OF Right 2019 Meniscus PILONIDAL CYST/SINUS EXCISION TONSILLECTOMY HX 1979 Current Outpatient Medications Medication Sig Dispense Refill colestipol (COLESTID) 1 gram tablet Take by mouth once daily. SUMAtriptan (IMITREX) 100 mg tablet Take by mouth as needed. Minocycline HCl 50 mg ORAL tablet Take 50 mg by mouth as needed. PROPRANOLOL HCL (INDERAL ORAL) Take by mouth. cholestyramine low-calorie (CHOLESTYRAMINE LIGHT) 4 gram packet Take 1 packet mix in 8 oz of water daily. (may use generic) (Patient not taking: Reported on 05/07/2024) 30 Packet 2 No current facility-administered medications for this visit. ALLERGIES: Patient has no known allergies. PERSONAL HISTORY: Social History Tobacco Use Smoking status: Never Smokeless tobacco: Never Vaping Use Vaping status: Never Used Substance Use Topics Alcohol use: Yes Comment: infrequently Drug use: Never FAMILY HISTORY: FAMILY HISTORY Problem Relation Age of Onset Breast Cancer Maternal Grandmother dx age ?50; 51 from breast cancer Breast Cancer Paternal Grandmother dx age ?55; 55 from breast cancer Breast Cancer Maternal Aunt dx age 55; currently 57 and doing well Breast Cancer Paternal Aunt dx 40; within the year REVIEW OF SYMPTOMS: The review of systems data was entered by the nurse and reviewed by me There are no exam notes on file for this visit. PHYSICAL EXAMINATION: General: The patient is 59 year old female, well nourished, well hydrated in no acute distress. The patient is oriented to time, place, and person. VITALS: Blood pressure 132/84, pulse 80, temperature 36.9 ?C (98.5 ?F), height 160 cm (5' 3), weight 114.9 kg (253 lb 6.4 oz), SpO2 98%. Body mass index is 44.89 kg/m?. HEENT: Normal cephalic, ataumatic, pupils are equally round, sclera are anicteric, mucous membranes are moist, oropharynx is clear. Neck has no masses, asymmetry or lymphadenopathy. Thyroid is unremarkable. Respiratory: Clear to auscultation and percussion. Normal respiratory excursion and pattern. Cardiac: Examination is regular rate and rhythm. Abdominal exam: Soft, nontender, with no palpable masses. No hepatosplenomegaly. No palpable hernias. Rectal exam: exam deferred Extremities: no clubbing, cyanosis or edema. No adenopathy. Breast: Visual inspection reveals no retractions, nipple inversion, or skin changes. Palpation of the right breast reveals no dominant or suspicious masses, but multiple benign-feeling nodules. Palpation of the left breast reveals no dominant or suspicious masses, but multiple benign-feeling nodules. Axillary exam demonstrates no suspicious masses in either the left or right axilla. There is no nipple discharge expressed from either the left or right breast. LABORATORY VALUES: As Noted RADIOLOGIC STUDIES: As Noted Assessment IMPRESSION: Abnormal finding on breast imaging (primary encounter diagnosis) PLAN: I am going to obtain an ultrasound and mammogram of the left breast. Once this is completed I plan to perform a ultrasound guided core biopsy of the left breast. The planned surgical procedure was discussed extensively with the patient. The risks, benefits, anticipated outcomes and possible complications were mentioned. My staff has also explained the procedure in understandable terms and the patient was given the option to take printed material concerning the planned procedure. The patient had the opportunity to ask questions concerning the planned procedure. The patient freely consents to the planned procedure. Diagnoses: (R92.8) Abnormal finding on breast imaging (primary encounter diagnosis) A letter was sent to Dr. Ivon Lopez (more content not included)... [facility] 05-07-2024 History of Presen t illness Narrative HISTORY AND PHYSICAL - BREAST COMPLAINT Sondra Currie 1965 REFERRING PHYSICIAN: Ivon Lopez,* CHIEF COMPLAINT: Abnormal finding on breast imaging (primary encounter diagnosis) HPI: The patient is a 59 year old female with a complaint of an abnormal CT scan of the chest that showed a 2 cm spiculated nodule in the medial lower left breast. States that this is significantly increased in size from the previous CAT scan of the abdomen back in January 11, 2024. It is highly suspicious for primary breast neoplasia. Patient has been complaining of left breast pain now for better than a year. She has not noticed any changes in herself breast exam The patient is being seen by me today at the request of Dr. Ivon Lopez, , DO for my opinion and advice regarding Abnormal finding on breast imaging (primary encounter diagnosis). PAST MEDICAL HISTORY Diagnosis Date Blood pressure elevated without history of HTN IBS (irritable bowel syndrome) Knee pain Migraines 1981 PAST SURGICAL HISTORY Procedure Laterality Date PAST SURGICAL HISTORY OF Right 2019 Meniscus PILONIDAL CYST/SINUS EXCISION TONSILLECTOMY HX 1979 Current Outpatient Medications Medication Sig Dispense Refill colestipol (COLESTID) 1 gram tablet Take by mouth once daily. SUMAtriptan (IMITREX) 100 mg tablet Take by mouth as needed. Minocycline HCl 50 mg ORAL tablet Take 50 mg by mouth as needed. PROPRANOLOL HCL (INDERAL ORAL) Take by mouth. cholestyramine low-calorie (CHOLESTYRAMINE LIGHT) 4 gram packet Take 1 packet mix in 8 oz of water daily. (may use generic) (Patient not taking: Reported on 05/07/2024) 30 Packet 2 No current facility-administered medications for this visit. ALLERGIES: Patient has no known allergies. PERSONAL HISTORY: Social History Tobacco Use Smoking status: Never Smokeless tobacco: Never Vaping Use Vaping status: Never Used Substance Use Topics Alcohol use: Yes Comment: infrequently Drug use: Never FAMILY HISTORY: FAMILY HISTORY Problem Relation Age of Onset Breast Cancer Maternal Grandmother dx age ?50; 51 from breast cancer Breast Cancer Paternal Grandmother dx age ?55; 55 from breast cancer Breast Cancer Maternal Aunt dx age 55; currently 57 and doing well Breast Cancer Paternal Aunt dx 40; within the year REVIEW OF SYMPTOMS: The review of systems data was entered by the nurse and reviewed by me There are no exam notes on file for this visit. PHYSICAL EXAMINATION: General: The patient is 59 year old female, well nourished, well hydrated in no acute distress. The patient is oriented to time, place, and person. VITALS: Blood pressure 132/84, pulse 80, temperature 36.9 C (98.5 F), height 160 cm (5' 3), weight 114.9 kg (253 lb 6.4 oz), SpO2 98%. Body mass index is 44.89 kg/m . HEENT: Normal cephalic, ataumatic, pupils are equally round, sclera are anicteric, mucous membranes are moist, oropharynx is clear. Neck has no masses, asymmetry or lymphadenopathy. Thyroid is unremarkable. Respiratory: Clear to auscultation and percussion. Normal respiratory excursion and pattern. Cardiac: Examination is regular rate and rhythm. Abdominal exam: Soft, nontender, with no palpable masses. No hepatosplenomegaly. No palpable hernias. Rectal exam: exam deferred Extremities: no clubbing, cyanosis or edema. No adenopathy. Breast: Visual inspection reveals no retractions, nipple inversion, or skin changes. Palpation of the right breast reveals no dominant or suspicious masses, but multiple benign-feeling nodules. Palpation of the left breast reveals no dominant or suspicious masses, but multiple benign-feeling nodules. Axillary exam demonstrates no suspicious masses in either the left or right axilla. There is no nipple discharge expressed from either the left or right breast. LABORATORY VALUES: As Noted RADIOLOGIC STUDIES: As Noted Assessment IMPRESSION: Abnormal finding on breast imaging (primary encounter diagnosis) PLAN: I am going to obtain an ultrasound and mammogram of the left breast. Once this is completed I plan to perform a ultrasound guided core biopsy of the left breast. The planned surgical procedure was discussed extensively with the patient. The risks, benefits, anticipated outcomes and possible complications were mentioned. My staff has also explained the procedure in understandable terms and the patient was given the option to take printed material concerning the planned procedure. The patient had the opportunity to ask questions concerning the planned procedure. The patient freely consents to the planned procedure. Diagnoses: (R92.8) Abnormal finding on breast imaging (primary encounter diagnosis) A letter was sent to Dr. Ivon Lopez DO, DO indicating the above finding for this patient. Return to Clinic: The patient is instructed to follow-up with me after the testing has been completed. River La III, MD REVIEW OF SYSTEMS: General: The patient notes fatigue, denies weight loss, notes weight gain, denies feeling hot, and denies feelings of cold. Eyes: The patient denies glaucoma, denies eye injury/surgery, wears glasses or contacts. Ear/Nose/Throat: The patient denies allergies, denies hayfever, denies ear infections, and denies bloody noses. Cardiovascular: The patient denies chest pain, denies heart disease, denies high blood pressure,denies cardiac stent, denies prior heart attack, denies irregular heart beat, denies high cholesterol, denies poor circulation, denies heart failure, other cardiac issues, denies claudication, denies cold feet, denies peripheral arterial stent. Respiratory: The patient denies tuberculosis, denies pneumonia, denies frequent cough, denies pulmonary embolism, denies shortness of breath, and denies coughing up blood. Gastrointestinal: The patient denies difficulty swallowing, notes acid reflux, denies ulcers, denies vomiting, denies jaundice/hepatitis, denies gallbladder problems, denies black or tarry stools, denies hemorrhoids, denies bleeding from rectum, notes diverticulitis, denies constipation, notes diarrhea, denies loss of stool control, and denies hernias. Kidney/Bladder: The patient notes kidney stones, denies urine infections, and denies bloody urine. Skin: The patient denies a history of skin cancer, denies bleeding/changing moles, and denies a history of skin rash. Neurologic: The patient denies a history of epilepsy/convulsions, notes headaches, denies head/spinal injuries, and denies stroke/TIA. Psychiatric: The patient denies psychiatric medications, denies depression, and denies voices, denies substance abuse. Endocrine: The patient denies thyroid disorders, denies diabetes, and denies hormonal problems. Hematologic: The patient denies a history of bruising, denies bleeding, and notes anemia, notes blood clots. Infections: The patient denies a history of measles and mumps, denies rheumatic fever, and denies sexually transmitted diseases. Musculoskeletal: The patient notes back pain/injury, denies back problems, denies sciatica, denies knee/foot trouble, denies arthritis, or denies gout. When was patient's last Mammogram screening? 2004 Last Colonoscopy: 2004 Rosa Kent LPN documented in this encounter [facility] 05-07-2024 Note HNO ID: [id number] Author: ROSA KENT LPN Service: ? Author Type: LICENSED NURSE Type: Progress Notes Filed: 05/07/2024 16:16 Note Text: REVIEW OF SYSTEMS: General: The patient notes fatigue, denies weight loss, notes weight gain, denies feeling hot, and denies feelings of cold. Eyes: The patient denies glaucoma, denies eye injury/surgery, wears glasses or contacts. Ear/Nose/Throat: The patient denies allergies, denies hayfever, denies ear infections, and denies bloody noses. Cardiovascular: The patient denies chest pain, denies heart disease, denies high blood pressure,denies cardiac stent, denies prior heart attack, denies irregular heart beat, denies high cholesterol, denies poor circulation, denies heart failure, other cardiac issues, denies claudication, denies cold feet, denies peripheral arterial stent. Respiratory: The patient denies tuberculosis, denies pneumonia, denies frequent cough, denies pulmonary embolism, denies shortness of breath, and denies coughing up blood. Gastrointestinal: The patient denies difficulty swallowing, notes acid reflux, denies ulcers, denies vomiting, denies jaundice/hepatitis, denies gallbladder problems, denies black or tarry stools, denies hemorrhoids, denies bleeding from rectum, notes diverticulitis, denies constipation, notes diarrhea, denies loss of stool control, and denies hernias. Kidney/Bladder: The patient notes kidney stones, denies urine infections, and denies bloody urine. Skin: The patient denies a history of skin cancer, denies bleeding/changing moles, and denies a history of skin rash. Neurologic: The patient denies a history of epilepsy/convulsions, notes headaches, denies head/spinal injuries, and denies stroke/TIA. Psychiatric: The patient denies psychiatric medications, denies depression, and denies voices, denies substance abuse. Endocrine: The patient denies thyroid disorders, denies diabetes, and denies hormonal problems. Hematologic: The patient denies a history of bruising, denies bleeding, and notes anemia, notes blood clots. Infections: The patient denies a history of measles and mumps, denies rheumatic fever, and denies sexually transmitted diseases. Musculoskeletal: The patient notes back pain/injury, denies back problems, denies sciatica, denies knee/foot trouble, denies arthritis, or denies gout. When was patient's last Mammogram screening? 2003 Last Colonoscopy: 2004 Rosa Kent LPN [facility] 09-11-2023 Discharge summary Note Date/Time September 11, 2023 11:52am [facility] Medical Records Department [address] [place] [address] Emergency Department Summary 09/11/23 MR#: [id number] Acct: [id number] Name: SONDRA CURRIE Rep #:[id number] : 1965 58 From: Trey Kern DO PCP: Dr. Ivon Lopez DO Status:RE G ER Location: ED HPI History of Present Illness Chief Complaint: Flank Pain Narrative Narrative: 58-year-old female presenting with right flank pain. She states it started about 0 6:30 AM this morning. This was prior to eating or drinking anything. She describes the pain as sharp and knifelike. It is in the right posterior side of her back. It is seem to radiate into her right lower abdomen. Patient states that she has been on Eliquis initially for DVT and subsequently transferred over to Coumadin and she has been slightly supratherapeutic with theINR 3.2. Patient does state that she had her urine tested the other day and there was blood in the urine but her kidney function was noted to be normal. She does feel like she has had the chills. She has nausea. Patient denies any history of kidney stones. [facility] Medical History Anemia GERD (gastroesophageal reflux disease) Migraines Right knee meniscal tear Severe headache Shoulder pain Home Medications colestipol 1 gram tablet 1 g PO DAILY 10/25/13 [History Last Taken Unknown] minocycline 100 mg capsule 100 mg PO DAILY PRN ROACIA 10/25/13 [History Last Taken Unknown] amlodipine 2.5 mg tablet 2.5 mg PO DAILY 09/11/23 [History Last Taken Unknown] ondansetron 4 mg disintegrating tablet 4 mg PO Q8H PRN PRN Nausea #14 tabs 09/11/23 [Rx Last Taken Unknown] oxycodone 5 mg tablet 5 mg PO Q6H PRN pain 3 days #12 tabs 09/11/23 [Rx Last Taken Unknown] propranolol 80 mg tablet 80 mg PO DAILY 09/11/23 [History Last Taken Unknown] warfarin 1 mg tablet 1 mg PO UD 09/11/23 [History Last Taken Unknown] warfarin 2 mg tablet 2 mg PO UD 09/11/23 [History Last Taken Unknown] Allergy/AdvReac Type Severity Reaction Status Date / Time No Known Allergies Allergy Verified 09/11/23 11:34 Family History Other Arthritis Cancer Colon cancer Diabetes High cholesterol Hypertension Surgical History H/O right knee surgery History of excision of pilonidal cyst Hx of tonsillectomy Social History Smoking Status: Never smoker ROS ROS ED Constitutional Constitutional ED: Reports chills and sweats; Denies fever(s) Eyes Eyes: Denies blurry vision or change in vision ENT ENT ED: Denies ear pain or sore throat Cardiovascular Cardiovascular: Denies chest pain, palpitations or racing heartbeat Respiratory/Chest Respiratory/Chest: Denies cough, dyspnea or sputum Gastrointestinal Gastrointestinal: Reports abdominal pain, nausea and vomiting; Denies constipation or diarrhea Genitourinary Genitourinary ED: Reports hematuria; Denies dysuria or urinary frequency Musculoskeletal Musculoskeletal: Reports back pain; Denies arthralgias, myalgias or neck pain Integumentary Denies abscess, Abrasions or rash Neurologic Neurologic: Denies headache(s), paresthesias or weakness Psychiatric Psychiatric: Denies anxiety, depression, suicidal ideation or suicidal thoughts Endocrine Endocrinology: Denies polydipsia or polyuria EXAM Physical Exam Const Vital Signs: 09/11/23 11:31 09/11/23 13:30 Temperature 98 F Temperature Source Temporal Pulse Rate 77 74 Respiratory Rate 16 16 Blood Pressure 148/107 H 146/77 H Blood Pressure Mean 120 100 Pulse Ox 99 Oxygen Delivery Method Room Air Positive well nourished General Appearance ED: NAD and other HEENT Reports moist mucous membranes Eyes PERRL and EOMs intact bilaterally Neck no lymphadenopathy Chest Wall inspection of chest normal Resp normal respiratory effort and clear to auscultation bilaterally Cardio regular rate and regular rhythm GI GI Narrative: Negative Graff sign. Back/Spine General Back: CVA tenderness right Neuro oriented x3 and CN's II-XII intact bilaterally Sensorium / Orientation: alert Motor Exam: strength 5/5 throughout Psych mental status grossly normal MDM MDM MDM Narrative Medical decision making narrative: Patient presenting with right flank pain. She states she has had blood in her urine. Differential includes UTI, pyelonephritis, urolithiasis, kidney stone, cholelithiasis, pancreatitis. No McBurney point tenderness. This did not follow any meal. Will go from sleep this morning. She states her blood in her urine. They were testing with normal renal function. CBC will be obtained to assess white blood cell count, hemoglobin, platelets. BMP to assess renal function, electrolytes, glucose. Liver function panel to assess liver enzymes. Lipase assessment otitis. IV line was established patient given morphine, Zofran. INR will be obtained to assess for coagulopathy. CT of the abdomen pelvis will be obtained to rule out kidney stone. CBC shows mild white blood cell count of 12.3. Hemoglobin stable at 13.1. INR. Slightly subtherapeutic at 1.8 however had been supratherapeutic prior. On reevaluation the patient's pain is well-controlled and she is resting comfortably.. Creatinine 1.23 and slightly elevated over baseline. LFTs are normal. Urinalysis negative for infection but does show blood. CT of the abdomen pelvis without contrast shows possible passed kidney stone as the right renal collecting system is dilated. There is also incidental finding of a complex left renal cyst which is will needfollow-up by ultrasound in the future. Patient does not have any pain here. This is consistent with the patient's symptoms. I will discharge the patient home with Zofran and oxycodone for pain. She will be given urology follow-up. Return precautions were discussed. I also recommended she speak to her PCP again regarding her Coumadin and INR. Impression: 1. subtherapeutic INR 2. Right flank pain 3. Hematuria 4. Passed kidney stone 5. Left renal cyst/complex Lab Data Attestation: I reviewed the patient's lab results. Labs: Laboratory Results - last 24 hr 09/11/23 09/11/23 09/11/23 11:45 11:55 12:12 WBC 12.3 H RBC 4.79 Hgb 13.1 Hct 41.5 MCV 86.6 MCH 27.3 MCHC 31.6 L RDW Std Deviation 41.2 RDW Coeff of Leandro 13.2 Plt Count 265 MPV 10.7 Immature Gran % (Auto) 0.900 Neut % (Auto) 85.1 H Lymph % (Auto) 9.1 L Hartley % (Auto) 3.7 Eos % (Auto) 0.6 Baso % (Auto) 0.6 Absolute Neuts (auto) 10.5 H Absolute Lymphs (auto) 1.11 Nucleated RBC % 0 PT 20.8 H INR 1.8 Sodium 142 Potassium 4.1 Chloride 112 H Carbon Dioxide 26.0 Anion Gap 4 L BUN 13 Creatinine 1.23 H Estim Creat Clear Calc 59.14 Est GFR (MDRD) Af Amer 57 L Est GFR (MDRD) Non-Af 47 L BUN/Creatinine Ratio 10.6 Glucose 138 H Calcium 8.9 Total Bilirubin 0.30 Direct Bilirubin 0.08 AST < 3 L ALT 22 Alkaline Phosphatase 85 Total Protein 7.4 Albumin 3.8 Globulin 3.6 Lipase 53 Urine Color Yellow Urine Clarity Clear Urine pH 6.0 Ur Specific Edgar 1.010 Urine Protein 15 H Urine Glucose (UA) Normal Urine Ketones Negative Urine Occult Blood 250 H Urine Nitrite Negative Urine Bilirubin Negative Urine Urobilinogen Normal Ur Leukocyte Esterase 100 H Urine RBC 5-10 SEEN Urine WBC 0 SEEN Ur Squamous Epith Cells 0-5 SEEN Urine Bacteria 0 SEEN Urine Mucus 0 SEEN Radiography Diagnostic Testing: Clinical Impression(s) from Imaging Studies Abdomen/Pelvis CT 09/11/23 11:50 IMPRESSION: 1. Mild distention of the right renal collecting system associated with mild right perinephric and periureteral edema likely related to a recently passed stone. 2. 16mm indeterminate left renal lesion. Recommend follow-up renal ultrasound. 3. Diverticulosis coli. 4. Normal appendix. Electronically Signed: Abhishek Paulino MD at 14:07 EDT , Discharge Plan Triage Chief Complaint: Flank Pain ED Provider: Trey Kern Dx/Rx/DC Orders Instructions: ED Kidney Stone, Passed Prescriptions: New oxycodone 5 mg tablet 5 mg PO Q6H PRN (Reason: pain) 3 Days Qty: 12 0RF ondansetron 4 mg tablet,disintegrating 4 mg PO Q8H PRN PRN (Reason: Nausea) Qty: 14 0RF No Action minocycline 100 MG capsule 100 mg PO DAILY PRN (Reason: ROACIA) Patient Comments: FOR ACNE colestipol 1 GM tablet 1 g PO DAILY Patient Comments: FOR GAS propranolol 80 mg tablet 80 mg PO DAILY amlodipine 2.5 mg tablet 2.5 mg PO DAILY warfarin 2 mg tablet 2 mg PO UD warfarin 1 mg tablet 1 mg PO UD Primary Care Provider: Ivon Lopez Referrals: Ivon Lopez DO [Primary Care Provider] - Disposition Disposition: Home, Self Care What to do if you have Problems For any increased pain, shortness of breath, bleeding, nausea or vomiting, chestpain, or any unexpected problems, contact your Primary Care Provider. Call [facility] ([phone]) or report to the closest Emergency Room. Call 911 if necessary. 09/11/23 1430 <Electronically signed by Trey Kern DO> Cosigner Signature (if applicable): CC: Dr. Ivon Lopez DO ~ Signed [facility] Work Phone: [phone] History of Present illness Narrative* Maribell Josue Lucio, ASSISTANT ASSOCIATE PROFESSOR-DIRECTOR OF MEDICAL EDUCATION - 02/11/2023 3:30 PM EDT Subjective Patient ID: Sondra Currie is a 57 y.o. female who presents for Chest Injury (2 week) and Shortness of Breath. Left rib same, pain 10 Right rib pain improved 2/10 Fall 12/13/22, ER 12/15/22, PCP 12/28/22, CT CHEST 01/15/23 Continues to have pain and difficulty taking deep breath Bp elevated here today, no history of HTN Continues to take ibuprofen for pain Review of Systems Constitutional: Negative for activity change, fatigue and fever. Respiratory: Positive for shortness of breath (rib pain). Negative for chest tightness. Cardiovascular: Negative for chest pain. Gastrointestinal: Negative for diarrhea, nausea and vomiting. Musculoskeletal: Positive for myalgias. Neurological: Negative for dizziness, light-headedness and numbness. Hematological: Does not bruise/bleed easily. Objective BP (!) 178/98 (Patient Position: Sitting) Pulse 76 Ht 1.588 m (5' 2.5) Wt 106 kg (233 lb 9.6oz) BMI 42.05 kg/m Physical Exam Vitals reviewed. Constitutional: General: She is not in acute distress. Appearance: Normal appearance. She is obese. Comments: Appears in pain Cardiovascular: Rate and Rhythm: Normal rate and regular rhythm. Pulmonary: Breath sounds: Normal breath sounds. Comments: Shallow breaths Skin: General: Skin is warm and dry. Neurological: Mental Status: She is alert and oriented to person, place, and time. Assessment/Plan Diagnoses and all orders for this visit: Multiple fractures of ribs, bilateral, initial encounter for closed fracture - Referral to Orthopaedic Surgery; Future - XR chest 2 views; Future Rib pain - Referral to Orthopaedic Surgery; Future - XR chest 2 views; Future Other orders - Follow Up In Primary Care - Health Maintenance CXR 02/11/23 showed no acute cardiopulmonary disease [facility] Work [facility]: [phone] History of Present illness Narrative* KARLA Turner - 12/28/2022 2:00 PM EDT Subjective Patient ID: Sondra Currie is a 57 y.o. female who presents for Establish Care and Lung/rib pain (Fell on 12/13). States the fall was at a gas station, walking inside the store and fell over a wheeled rack on the floor When she feel fell over palate hit ronda landed on chest Knocked the wind out Things went black for a few seconds Did not hit head, Was Working, driving bus for special needs, was getting gas Was able to get up and walked away from the fall, then drove her bus for 2 more hours. Went to ER 2 days later due to pain with breathing Pian to front ribs, left back area as well When in ER chest and ribs were X-rayed, no Fracture found Reports she was diagnosed with contusion and bruising Prescribed pain pills' for 10 days, now she is taking Advil Sumatriptan for migraine as needed Has been seeing a PCP, she states they would not see her related to the fall XR were negative, however pain is worsening Patient reports she did not file incident report through employer, however she states her employer knows she fell he has called to check on her Review of Systems Constitutional: Negative for activity change and fever. Respiratory: Negative for cough, chest tightness and shortness of breath. Cardiovascular: Negative for chest pain, palpitations and leg swelling. Musculoskeletal: Positive for myalgias. Pain to bilateral ribs under breast Neurological: Negative for dizziness, light-headedness and headaches. H/O migraine Objective BP 118/66 (Patient Position: Sitting) Pulse 65 Ht 1.588 m (5' 2.5) Wt 102 kg (225 lb 8 oz) BMI 40.59 kg/m Physical Exam Vitals reviewed. Constitutional: General: She is not in acute distress. Appearance: Normal appearance. She is obese. Cardiovascular: Rate and Rhythm: Normal rate and regular rhythm. Pulses: Normal pulses. Pulmonary: Effort: Pulmonary effort is normal. Breath sounds: Normal breath sounds. Chest: Chest wall: Tenderness present. No mass, lacerations, swelling or edema. Comments: No bruising seen on exam Abdominal: General: Bowel sounds are normal. Palpations: Abdomen is soft. Skin: General: Skin is warm and dry. Coloration: Skin is not pale. Findings: No bruising or erythema. Neurological: Mental Status: She is alert and oriented to person, place, and time. Assessment/Plan Diagnoses and all orders for this visit: Chest injury, initial encounter - CT chest wo IV contrast; Future - ER record from 12/15/22 requested, XR negative according to patient Rib pain - CT chest wo IV contrast; Future - ibuprofen 800 mg tablet; Take 1 tablet (800 mg) by mouth every 8 hours if needed for mild pain (1- 3) (pain). - Mat take OTC Tylenol as needed for pain in addition to Ibuprofen Contusion of both lungs, initial encounter - CT chest wo IV contrast; Future - ibuprofen 800 mg tablet; Take 1 tablet (800 mg) by mouth every 8 hours if needed for mild pain (1- 3) (pain). Other orders - Follow Up In Primary Care - Health Maintenance; [facility] Work Phone: [phone] History of Present illness Narrative* Maribell Lucio, ASSISTANT ASSOCIATE PROFESSOR-DIRECTOR OF MEDICAL EDUCATION - 01/28/2023 4:00 PM EDT Subjective Patient ID: Sondra Currie is a 57 y.o. female who presents for Chest Injury (1 month follow-up - is still having pain). Accident 12/13/2022 CT showed Bilateral rib fractures. Continues to have pain, is not taking deep breaths Did not fill the ibuprofen or take any OTC States she didn't want to be a baby Is working, pain with pushing wheelchairs, she is a fuel truck driver of bus Review of Systems Objective BP 118/70 (Patient Position: Sitting) Pulse 79 Ht 1.588 m (5' 2.5) Wt 105 kg (231 lb 1.6 oz) BMI 41.60 kg/m Physical Exam Vitals reviewed. Constitutional: General: She is not in acute distress. Appearance: Normal appearance. She is obese. Cardiovascular: Rate and Rhythm: Normal rate. Pulmonary: Effort: Pulmonary effort is normal. Breath sounds: Decreased air movement present. Wheezing present. Comments: Shallow respirations due to pain Musculoskeletal: General: Normal range of motion. Cervical back: Normal range of motion. Skin: General: Skin is warm and dry. Neurological: Mental Status: She is alert and oriented to person, place, and time. Assessment/Plan Diagnoses and all orders for this visit: SOB (shortness of breath) - albuterol (Ventolin HFA) 90 mcg/actuation inhaler; Inhale 2 puffs every 4 hours if needed for wheezing or shortness of breath. Rib pain - ibuprofen 800 mg tablet; Take 1 tablet (800 mg) by mouth every 8 hours if needed for mild pain (1- 3) (pain). Contusion of both lungs, initial encounter - ibuprofen 800 mg tablet; Take 1 tablet (800 mg) by mouth every 8 hours if needed for mild pain (1- 3) (pain). Multiple fractures of ribs, bilateral, initial encounter for closed fracture - albuterol (Ventolin HFA) 90 mcg/actuation inhaler; Inhale 2 puffs every 4 hours if needed for wheezing or shortness of breath. -Instructed to deep breath and cough every 2-3 hours, use pillow to support rib cage as needed -If pain persist may need to see thoracis surgeon for further evaluation Other orders - Follow Up In Primary Care - Health Maintenance - Follow Up In Primary Care - Health Maintenance; Future [facility] Work Phone: Evaluation noteNo assessment information available [facility] Work Phone: Evaluation note* Diagnosis Chest injury, initial encounter- Primary Rib pain Unspecified chest pain Contusion of both lungs, initial encounter documented in this encounter [facility] Work Phone: Evaluation note* Diagnosis SOB (shortness of breath)- Primary Shortness of breath Rib pain Unspecified chest pain Contusion of both lungs, initial encounter Multiple fractures of ribs, bilateral, initial encounter for closed fracture documented in this encounter [facility] Work Phone: Evaluation note* Diagnosis Multiple fractures of ribs, bilateral, initial encounter for closed fracture- Primary Rib pain Unspecified chest pain documented in this encounter [facility] Work Phone: Evaluation note* Diagnosis Abnormal finding on breast imaging- Primary Other (abnormal) findings on radiological examination of breast documented in this encounter [facility] Discharge instructions Additional Instructions Try wearing basic compression stockings to see if this helps with your symptoms. We have for the rash she can try taking Benadryl. Anti-inflammatory medication such as ibuprofen might be helpful for the pain. The exact cause of your swelling and skin changes is not clear however I think you are safe to go home at this time.[facility] Work Phone: Instructions* Name Dates Details How to access health [employer] online Indication:Non-smoker Start:21-Feb-2020 Instruction Type:Patient Education How to access health informa [employer] online - Detail Indication:Non-smoker Start:21-Feb-2020 Instruction Type:Patient Education Patient Instructions Indication:Non-smoker Start:21-Feb-2020 Instruction Type:Provider Instructions for Treatment How to access health informa [employer] online Indication:Non-smoker Start:18-Dec-2019 Instruction Type:Patient Education How to access health informa tion online - Detail Indication:Non-smoker Start:18-Dec-2019 Instruction Type:Patient Education Patient Instructions Indication:Non-smoker Start:18-Dec-2019 Instruction Type:Provider Instructions for Treatment How to access health informa tion online Indication:Non-smoker Start:27-Nov-2019 Instruction Type:Patient Education How to access health informa tion online - Detail Indication:Non-smoker Start:27-Nov-2019 Instruction Type:Patient Education Patient Instructions Indication:Non-smoker Start:27-Nov-2019 Instruction Type:Provider Instructions for Treatment How to access health informa tion online Indication:Non-smoker Start:30-Aug-2019 Instruction Type:Patient Education How to access health informa tion online - Detail Indication:Non-smoker Start:30-Aug-2019 Instruction Type:Patient Education Patient Instructions Indication:Non-smoker Start:30-Aug-2019 Instruction Type:Provider Instructions for Treatment How to access health informa tion online Indication:Weight gain Start:14-Feb-2019 Instruction Type:Patient Education How to access health informa tion online - Detail Indication:Weight gain Start:14-Feb-2019 Instruction Type:Patient Education Patient Instructions Indication:Weight gain Start:14-Feb-2019 Instruction Type:Provider Instructions for Treatment How to access health informa tion online Indication:BMI 34.0-34.9,adult Start:22-Sep-2018 Instruction Type:Patient Education How to access health informa tion online - Detail Indication:BMI 34.0-34.9,adult Start:22-Sep-2018 Instruction Type:Patient Education Patient Instructions Indication:BMI 34.0-34.9,adult Start:22-Sep-2018 Instruction Type:Provider Instructions for Treatment How to access health informa tion online Indication:Non-smoker Start:06-Sep-2018 Instruction Type:Patient Education How to access health informa tion online - Detail Indication:Non-smoker Start:06-Sep-2018 Instruction Type:Patient Education Patient Instructions Indication:Non-smoker Start:06-Sep-2018 Instruction Type:Provider Instructions for Treatment How to access health informa tion online Indication:BMI 36.0-36.9,adult Start:25-Aug-2018 Instruction Type:Patient Education How to access health informa tion online - Detail Indication:BMI 36.0-36.9,adult Start:25-Aug-2018 Instruction Type:Patient Education Patient Instructions Indication:BMI 36.0-36.9,adult Start:25-Aug-2018 Instruction Type:Provider Instructions for Treatment How to access health informa tion online Indication:BMI 38.0-38.9,adult Start:31-Jul-2018 Instruction Type:Patient Education How to access health informa tion online - Detail Indication:BMI 38.0-38.9,adult Start:31-Jul-2018 Instruction Type:Patient Education Patient Instructions Indication:BMI 38.0-38.9,adult Start:31-Jul-2018 Instruction Type:Provider Instructions for Treatment How to access health informa tion online Indication:Non-smoker Start:23-Jun-2018 Instruction Type:Patient Education How to access health informa tion online - Detail Indication:Non-smoker Start:23-Jun-2018 Instruction Type:Patient Education Patient Instructions Indication:Non-smoker Start:23-Jun-2018 Instruction Type:Provider Instructions for Treatment How to access health informa tion online Indication:Non-smoker Start:16-Jun-2018 Instruction Type:Patient Education How to access health informa tion online - Detail Indication:Non-smoker Start:16-Jun-2018 Instruction Type:Patient Education Patient Instructions Indication:Non-smoker Start:16-Jun-2018 Instruction Type:Provider Instructions for Treatment How to access health informa tion online Indication:Non-smoker Start:08-Nov-2017 Instruction Type:Patient Education How to access health informa tion online - Detail Indication:Non-smoker Start:08-Nov-2017 Instruction Type:Patient Education Patient Instructions Indication:Non-smoker Start:08-Nov-2017 Instruction Type:Provider Instructions for Treatment How to access health informa tion online Indication:BMI 36.0-36.9,adult Start:30-Sep-2017 Instruction Type:Patient Education How to access health informa tion online - Detail Indication:BMI 36.0-36.9,adult Start:30-Sep-2017 Instruction Type:Patient Education Patient Instructions Indication:BMI 36.0-36.9,adult Start:30-Sep-2017 Instruction Type:Provider Instructions for Treatment How to access health informa tion online Indication:BMI 37.0-37.9, adult Start:23-Aug-2017 Instruction Type:Patient Education How to access health informa tion online - Detail Indication:BMI 37.0-37.9, adult Start:23-Aug-2017 Instruction Type:Patient Education Patient Instructions Indication:BMI 37.0-37.9, adult Start:23-Aug-2017 Instruction Type:Provider Instructions for Treatment How to access health informa tion online Indication:BMI 35.0-35.9,adult Start:06-May-2017 Instruction Type:Patient Education How to access health informa tion online - Detail Indication:BMI 35.0-35.9,adult Start:06-May-2017 Instruction Type:Patient Education Patient Instructions Indication:BMI 35.0-35.9,adult Start:06-May-2017 Instruction Type:Provider Instructions for Treatment How to access health informa tion online Indication:BMI 36.0-36.9,adult Start:11-Mar-2017 Instruction Type:Patient Education How to access health informa tion online - Detail Indication:BMI 36.0-36.9,adult Start:11-Mar-2017 Instruction Type:Patient Education Patient Instructions Indication:BMI 36.0-36.9,adult Start:11-Mar-2017 Instruction Type:Provider Instructions for Treatment How to access health informa tion online Indication:Hypertension, essential, benign Start:07-Feb-2017 Instruction Type:Patient Education How to access health informa tion online - Detail Indication:Hypertension, essential, benign Start:07-Feb-2017 Instruction Type:Patient Education Patient Instructions Indication:Hypertension, essential, benign Start:07-Feb-2017 Instruction Type:Provider Instructions for Treatment How to access health informa tion online Indication:Flu-like symptoms Start:02-Jun-2016 Instruction Type:Patient Education How to access health informa tion online - Detail Indication:Flu-like symptoms Start:02-Jun-2016 Instruction Type:Patient Education Patient Instructions Indication:Flu-like symptoms Start:02-Jun-2016 Instruction Type:Provider Instructions for Treatment Patient Instructions Indication:Depression, acute Start:21-May-2016 Instruction Type:Provider Instructions for Treatment Patient Instructions Indication:Depression, acute Start:07-Apr-2016 Instruction Type:Provider Instructions for Treatment How to access health informa tion online Indication:Left upper quadrant abdominal tenderness Start:29-Sep-2015 Instruction Type:Patient Education How to access health informa tion online - Detail Indication:Left upper quadrant abdominal tenderness Start:29-Sep-2015 Instruction Type:Patient Education Patient Instructions Indication:Left upper quadrant abdominal tenderness Start:29-Sep-2015 Instruction Type:Provider Instructions for Treatment How to access health informa tion online Indication:Hypertension, essential, benign Start:01-Nov-2014 Instruction Type:Patient Education How to access health informa tion online - Detail Indication:Hypertension, essential, benign Start:01-Nov-2014 Instruction Type:Patient Education Patient Instructions Indication:Hypertension, essential, benign Start:01-Nov-2014 Instruction Type:Provider Instructions for Treatment Patient Instructions Indication:Hypertension, essential, benign Start:04-Jan-2014 Instruction Type:Provider Instructions for Treatment How to access health informa tion online Indication:Hypertension, essential, benign Start:04-Jan-2014 Instruction Type:Patient Education How to access health informa tion online - Detail Indication:Hypertension, essential, benign Start:04-Jan-2014 Instruction Type:Patient Education obesity counseling Indication:BMI 38.0-38.9,adult Start:20-Dec-2012 Instruction Type:Provider Instructions for Treatment Patient Instructions Indication:Hypertension, essential, benign Start:20-Dec-2012 Instruction Type:Provider Instructions for Treatment Patient Instructions Indication:Obesity Start:24-Feb-2012 Instruction Type:Provider Instructions for Treatment Patient Instructions Indication:Obesity Start:07-Feb-2012 Instruction Type:Provider Instructions for Treatment Patient Instructions Indication:Obesity Start:25-Jan-2012 Instruction Type:Provider Instructions for Treatment Patient Instructionscont eat ing plan and exercise Indication:Obesity Start:13-Jan-2012 Instruction Type:Provider Instructions for Treatment [facility]; [facility] Work Phone: Instructions* Name Dates Details Patient Instructions Indication:BMI 40.0-44.9, adult Start:06-May-2021 Instruction Type:Provider Instructions for Treatment How to Access Health Informa tion Online using Patient Portal and [employer]rd [employer] Apps Indication:BMI 40.0-44.9, adult Start:06-May-2021 Instruction Type:Patient Education Patient Instructions Indication:BMI 40.0-44.9, adult Start:06-Apr-2021 Instruction Type:Provider Instructions for Treatment How to Access Health Informa tion Online using Patient Portal and [employer]rd [employer] Apps Indication:BMI 40.0-44.9, adult Start:06-Apr-2021 Instruction Type:Patient Education Patient Instructions Indication:BMI 40.0-44.9, adult Start:25-Mar-2021 Instruction Type:Provider Instructions for Treatment How to Access Health Informa tion Online using Patient Portal and [employer]rd [employer] Apps Indication:BMI 40.0-44.9, adult Start:25-Mar-2021 Instruction Type:Patient Education Patient Instructions Indication:BMI 40.0-44.9, adult Start:11-Mar-2021 Instruction Type:Provider Instructions for Treatment How to Access Health Informa tion Online using Patient Portal and [employer]rd [employer] Apps Indication:BMI 40.0-44.9, adult Start:11-Mar-2021 Instruction Type:Patient Education How to access health informa tion online Indication:Non-smoker Start:21-Feb-2020 Instruction Type:Patient Education How to access health informa tion online - Detail Indication:Non-smoker Start:21-Feb-2020 Instruction Type:Patient Education Patient Instructions Indication:Non-smoker Start:21-Feb-2020 Instruction Type:Provider Instructions for Treatment How to access health informa tion online Indication:Non-smoker Start:18-Dec-2019 Instruction Type:Patient Education How to access health informa tion online - Detail Indication:Non-smoker Start:18-Dec-2019 Instruction Type:Patient Education Patient Instructions Indication:Non-smoker Start:18-Dec-2019 Instruction Type:Provider Instructions for Treatment How to access health informa tion online Indication:Non-smoker Start:27-Nov-2019 Instruction Type:Patient Education How to access health informa tion online - Detail Indication:Non-smoker Start:27-Nov-2019 Instruction Type:Patient Education Patient Instructions Indication:Non-smoker Start:27-Nov-2019 Instruction Type:Provider Instructions for Treatment How to access health informa tion online Indication:Non-smoker Start:30-Aug-2019 Instruction Type:Patient Education How to access health informa tion online - Detail Indication:Non-smoker Start:30-Aug-2019 Instruction Type:Patient Education Patient Instructions Indication:Non-smoker Start:30-Aug-2019 Instruction Type:Provider Instructions for Treatment How to access health informa tion online Indication:Weight gain Start:14-Feb-2019 Instruction Type:Patient Education How to access health informa tion online - Detail Indication:Weight gain Start:14-Feb-2019 Instruction Type:Patient Education Patient Instructions Indication:Weight gain Start:14-Feb-2019 Instruction Type:Provider Instructions for Treatment How to access health informa tion online Indication:BMI 34.0-34.9,adult Start:22-Sep-2018 Instruction Type:Patient Education How to access health informa tion online - Detail Indication:BMI 34.0-34.9,adult Start:22-Sep-2018 Instruction Type:Patient Education Patient Instructions Indication:BMI 34.0-34.9,adult Start:22-Sep-2018 Instruction Type:Provider Instructions for Treatment How to access health informa tion online Indication:Non-smoker Start:06-Sep-2018 Instruction Type:Patient Education How to access health informa tion online - Detail Indication:Non-smoker Start:06-Sep-2018 Instruction Type:Patient Education Patient Instructions Indication:Non-smoker Start:06-Sep-2018 Instruction Type:Provider Instructions for Treatment How to access health informa tion online Indication:BMI 36.0-36.9,adult Start:25-Aug-2018 Instruction Type:Patient Education How to access health informa tion online - Detail Indication:BMI 36.0-36.9,adult Start:25-Aug-2018 Instruction Type:Patient Education Patient Instructions Indication:BMI 36.0-36.9,adult Start:25-Aug-2018 Instruction Type:Provider Instructions for Treatment How to access health informa tion online Indication:BMI 38.0-38.9,adult Start:31-Jul-2018 Instruction Type:Patient Education How to access health informa tion online - Detail Indication:BMI 38.0-38.9,adult Start:31-Jul-2018 Instruction Type:Patient Education Patient Instructions Indication:BMI 38.0-38.9,adult Start:31-Jul-2018 Instruction Type:Provider Instructions for Treatment How to access health informa tion online Indication:Non-smoker Start:23-Jun-2018 Instruction Type:Patient Education How to access health informa tion online - Detail Indication:Non-smoker Start:23-Jun-2018 Instruction Type:Patient Education Patient Instructions Indication:Non-smoker Start:23-Jun-2018 Instruction Type:Provider Instructions for Treatment How to access health informa tion online Indication:Non-smoker Start:16-Jun-2018 Instruction Type:Patient Education How to access health informa tion online - Detail Indication:Non-smoker Start:16-Jun-2018 Instruction Type:Patient Education Patient Instructions Indication:Non-smoker Start:16-Jun-2018 Instruction Type:Provider Instructions for Treatment How to access health informa tion online Indication:Non-smoker Start:08-Nov-2017 Instruction Type:Patient Education How to access health informa tion online - Detail Indication:Non-smoker Start:08-Nov-2017 Instruction Type:Patient Education Patient Instructions Indication:Non-smoker Start:08-Nov-2017 Instruction Type:Provider Instructions for Treatment How to access health informa tion online Indication:BMI 36.0-36.9,adult Start:30-Sep-2017 Instruction Type:Patient Education How to access health informa tion online - Detail Indication:BMI 36.0-36.9,adult Start:30-Sep-2017 Instruction Type:Patient Education Patient Instructions Indication:BMI 36.0-36.9,adult Start:30-Sep-2017 Instruction Type:Provider Instructions for Treatment How to access health informa tion online Indication:BMI 37.0-37.9, adult Start:23-Aug-2017 Instruction Type:Patient Education How to access health informa tion online - Detail Indication:BMI 37.0-37.9, adult Start:23-Aug-2017 Instruction Type:Patient Education Patient Instructions Indication:BMI 37.0-37.9, adult Start:23-Aug-2017 Instruction Type:Provider Instructions for Treatment How to access health informa tion online Indication:BMI 35.0-35.9,adult Start:06-May-2017 Instruction Type:Patient Education How to access health informa tion online - Detail Indication:BMI 35.0-35.9,adult Start:06-May-2017 Instruction Type:Patient Education Patient Instructions Indication:BMI 35.0-35.9,adult Start:06-May-2017 Instruction Type:Provider Instructions for Treatment How to access health informa tion online Indication:BMI 36.0-36.9,adult Start:11-Mar-2017 Instruction Type:Patient Education How to access health informa tion online - Detail Indication:BMI 36.0-36.9,adult Start:11-Mar-2017 Instruction Type:Patient Education Patient Instructions Indication:BMI 36.0-36.9,adult Start:11-Mar-2017 Instruction Type:Provider Instructions for Treatment How to access health informa tion online Indication:Hypertension, essential, benign Start:07-Feb-2017 Instruction Type:Patient Education How to access health informa tion online - Detail Indication:Hypertension, essential, benign Start:07-Feb-2017 Instruction Type:Patient Education Patient Instructions Indication:Hypertension, essential, benign Start:07-Feb-2017 Instruction Type:Provider Instructions for Treatment How to access health informa tion online Indication:Flu-like symptoms Start:02-Jun-2016 Instruction Type:Patient Education How to access health informa tion online - Detail Indication:Flu-like symptoms Start:02-Jun-2016 Instruction Type:Patient Education Patient Instructions Indication:Flu-like symptoms Start:02-Jun-2016 Instruction Type:Provider Instructions for Treatment Patient Instructions Indication:Depression, acute Start:21-May-2016 Instruction Type:Provider Instructions for Treatment Patient Instructions Indication:Depression, acute Start:07-Apr-2016 Instruction Type:Provider Instructions for Treatment How to access health informa tion online Indication:Left upper quadrant abdominal tenderness Start:29-Sep-2015 Instruction Type:Patient Education How to access health informa tion online - Detail Indication:Left upper quadrant abdominal tenderness Start:29-Sep-2015 Instruction Type:Patient Education Patient Instructions Indication:Left upper quadrant abdominal tenderness Start:29-Sep-2015 Instruction Type:Provider Instructions for Treatment How to access health informa tion online Indication:Hypertension, essential, benign Start:01-Nov-2014 Instruction Type:Patient Education How to access health informa tion online - Detail Indication:Hypertension, essential, benign Start:01-Nov-2014 Instruction Type:Patient Education Patient Instructions Indication:Hypertension, essential, benign Start:01-Nov-2014 Instruction Type:Provider Instructions for Treatment Patient Instructions Indication:Hypertension, essential, benign Start:04-Jan-2014 Instruction Type:Provider Instructions for Treatment How to access health informa tion online Indication:Hypertension, essential, benign Start:04-Jan-2014 Instruction Type:Patient Education How to access health informa tion online - Detail Indication:Hypertension, essential, benign Start:04-Jan-2014 Instruction Type:Patient Education obesity counseling Indication:BMI 38.0-38.9,adult Start:20-Dec-2012 Instruction Type:Provider Instructions for Treatment Patient Instructions Indication:Hypertension, essential, benign Start:20-Dec-2012 Instruction Type:Provider Instructions for Treatment Patient Instructions Indication:Obesity Start:24-Feb-2012 Instruction Type:Provider Instructions for Treatment Patient Instructions Indication:Obesity Start:07-Feb-2012 Instruction Type:Provider Instructions for Treatment Patient Instructions Indication:Obesity Start:25-Jan-2012 Instruction Type:Provider Instructions for Treatment Patient Instructionscont eat ing plan and exercise Indication:Obesity Start:13-Jan-2012 Instruction Type:Provider Instructions for Treatment [facility]; [facility] Work Phone: Instructions* Name Dates Details Patient Instructions Indication:BMI 38.0-38.9,adult Start:20-May-2021 Instruction Type:Provider Instructions for Treatment How to Access Health Informa tion Online using Patient Portal and [employer] Apps Indication:BMI 38.0-38.9,adult Start:20-May-2021 Instruction Type:Patient Education Patient Instructions Indication:BMI 40.0-44.9, adult Start:06-May-2021 Instruction Type:Provider Instructions for Treatment How to Access Health Informa tion Online using Patient Portal and [employer] Apps Indication:BMI 40.0-44.9, adult Start:06-May-2021 Instruction Type:Patient Education Patient Instructions Indication:BMI 40.0-44.9, adult Start:06-Apr-2021 Instruction Type:Provider Instructions for Treatment How to Access Health Informa tion Online using Patient Portal and [employer] Apps Indication:BMI 40.0-44.9, adult Start:06-Apr-2021 Instruction Type:Patient Education Patient Instructions Indication:BMI 40.0-44.9, adult Start:25-Mar-2021 Instruction Type:Provider Instructions for Treatment How to Access Health Informa tion Online using Patient Portal and [employer] Apps Indication:BMI 40.0-44.9, adult Start:25-Mar-2021 Instruction Type:Patient Education Patient Instructions Indication:BMI 40.0-44.9, adult Start:11-Mar-2021 Instruction Type:Provider Instructions for Treatment How to Access Health Informa tion Online using Patient Portal and [employer] Apps Indication:BMI 40.0-44.9, adult Start:11-Mar-2021 Instruction Type:Patient Education How to access health informa tion online Indication:Non-smoker Start:21-Feb-2020 Instruction Type:Patient Education How to access health informa tion online - Detail Indication:Non-smoker Start:21-Feb-2020 Instruction Type:Patient Education Patient Instructions Indication:Non-smoker Start:21-Feb-2020 Instruction Type:Provider Instructions for Treatment How to access health informa tion online Indication:Non-smoker Start:18-Dec-2019 Instruction Type:Patient Education How to access health informa tion online - Detail Indication:Non-smoker Start:18-Dec-2019 Instruction Type:Patient Education Patient Instructions Indication:Non-smoker Start:18-Dec-2019 Instruction Type:Provider Instructions for Treatment How to access health informa tion online Indication:Non-smoker Start:27-Nov-2019 Instruction Type:Patient Education How to access health informa tion online - Detail Indication:Non-smoker Start:27-Nov-2019 Instruction Type:Patient Education Patient Instructions Indication:Non-smoker Start:27-Nov-2019 Instruction Type:Provider Instructions for Treatment How to access health informa tion online Indication:Non-smoker Start:30-Aug-2019 Instruction Type:Patient Education How to access health informa tion online - Detail Indication:Non-smoker Start:30-Aug-2019 Instruction Type:Patient Education Patient Instructions Indication:Non-smoker Start:30-Aug-2019 Instruction Type:Provider Instructions for Treatment How to access health informa tion online Indication:Weight gain Start:14-Feb-2019 Instruction Type:Patient Education How to access health informa tion online - Detail Indication:Weight gain Start:14-Feb-2019 Instruction Type:Patient Education Patient Instructions Indication:Weight gain Start:14-Feb-2019 Instruction Type:Provider Instructions for Treatment How to access health informa tion online Indication:BMI 34.0-34.9,adult Start:22-Sep-2018 Instruction Type:Patient Education How to access health informa tion online - Detail Indication:BMI 34.0-34.9,adult Start:22-Sep-2018 Instruction Type:Patient Education Patient Instructions Indication:BMI 34.0-34.9,adult Start:22-Sep-2018 Instruction Type:Provider Instructions for Treatment How to access health informa tion online Indication:Non-smoker Start:06-Sep-2018 Instruction Type:Patient Education How to access health informa tion online - Detail Indication:Non-smoker Start:06-Sep-2018 Instruction Type:Patient Education Patient Instructions Indication:Non-smoker Start:06-Sep-2018 Instruction Type:Provider Instructions for Treatment How to access health informa tion online Indication:BMI 36.0-36.9,adult Start:25-Aug-2018 Instruction Type:Patient Education How to access health informa tion online - Detail Indication:BMI 36.0-36.9,adult Start:25-Aug-2018 Instruction Type:Patient Education Patient Instructions Indication:BMI 36.0-36.9,adult Start:25-Aug-2018 Instruction Type:Provider Instructions for Treatment How to access health informa tion online Indication:BMI 38.0-38.9,adult Start:31-Jul-2018 Instruction Type:Patient Education How to access health informa tion online - Detail Indication:BMI 38.0-38.9,adult Start:31-Jul-2018 Instruction Type:Patient Education Patient Instructions Indication:BMI 38.0-38.9,adult Start:31-Jul-2018 Instruction Type:Provider Instructions for Treatment How to access health informa tion online Indication:Non-smoker Start:23-Jun-2018 Instruction Type:Patient Education How to access health informa tion online - Detail Indication:Non-smoker Start:23-Jun-2018 Instruction Type:Patient Education Patient Instructions Indication:Non-smoker Start:23-Jun-2018 Instruction Type:Provider Instructions for Treatment How to access health informa tion online Indication:Non-smoker Start:16-Jun-2018 Instruction Type:Patient Education How to access health informa tion online - Detail Indication:Non-smoker Start:16-Jun-2018 Instruction Type:Patient Education Patient Instructions Indication:Non-smoker Start:16-Jun-2018 Instruction Type:Provider Instructions for Treatment How to access health informa tion online Indication:Non-smoker Start:08-Nov-2017 Instruction Type:Patient Education How to access health informa tion online - Detail Indication:Non-smoker Start:08-Nov-2017 Instruction Type:Patient Education Patient Instructions Indication:Non-smoker Start:08-Nov-2017 Instruction Type:Provider Instructions for Treatment How to access health informa tion online Indication:BMI 36.0-36.9,adult Start:30-Sep-2017 Instruction Type:Patient Education How to access health informa tion online - Detail Indication:BMI 36.0-36.9,adult Start:30-Sep-2017 Instruction Type:Patient Education Patient Instructions Indication:BMI 36.0-36.9,adult Start:30-Sep-2017 Instruction Type:Provider Instructions for Treatment How to access health informa tion online Indication:BMI 37.0-37.9, adult Start:23-Aug-2017 Instruction Type:Patient Education How to access health informa tion online - Detail Indication:BMI 37.0-37.9, adult Start:23-Aug-2017 Instruction Type:Patient Education Patient Instructions Indication:BMI 37.0-37.9, adult Start:23-Aug-2017 Instruction Type:Provider Instructions for Treatment How to access health informa tion online Indication:BMI 35.0-35.9,adult Start:06-May-2017 Instruction Type:Patient Education How to access health informa tion online - Detail Indication:BMI 35.0-35.9,adult Start:06-May-2017 Instruction Type:Patient Education Patient Instructions Indication:BMI 35.0-35.9,adult Start:06-May-2017 Instruction Type:Provider Instructions for Treatment How to access health informa tion online Indication:BMI 36.0-36.9,adult Start:11-Mar-2017 Instruction Type:Patient Education How to access health informa tion online - Detail Indication:BMI 36.0-36.9,adult Start:11-Mar-2017 Instruction Type:Patient Education Patient Instructions Indication:BMI 36.0-36.9,adult Start:11-Mar-2017 Instruction Type:Provider Instructions for Treatment How to access health informa tion online Indication:Hypertension, essential, benign Start:07-Feb-2017 Instruction Type:Patient Education How to access health informa tion online - Detail Indication:Hypertension, essential, benign Start:07-Feb-2017 Instruction Type:Patient Education Patient Instructions Indication:Hypertension, essential, benign Start:07-Feb-2017 Instruction Type:Provider Instructions for Treatment How to access health informa tion online Indication:Flu-like symptoms Start:02-Jun-2016 Instruction Type:Patient Education How to access health informa tion online - Detail Indication:Flu-like symptoms Start:02-Jun-2016 Instruction Type:Patient Education Patient Instructions Indication:Flu-like symptoms Start:02-Jun-2016 Instruction Type:Provider Instructions for Treatment Patient Instructions Indication:Depression, acute Start:21-May-2016 Instruction Type:Provider Instructions for Treatment Patient Instructions Indication:Depression, acute Start:07-Apr-2016 Instruction Type:Provider Instructions for Treatment How to access health informa tion online Indication:Left upper quadrant abdominal tenderness Start:29-Sep-2015 Instruction Type:Patient Education How to access health informa tion online - Detail Indication:Left upper quadrant abdominal tenderness Start:29-Sep-2015 Instruction Type:Patient Education Patient Instructions Indication:Left upper quadrant abdominal tenderness Start:29-Sep-2015 Instruction Type:Provider Instructions for Treatment How to access health informa tion online Indication:Hypertension, essential, benign Start:01-Nov-2014 Instruction Type:Patient Education How to access health informa tion online - Detail Indication:Hypertension, essential, benign Start:01-Nov-2014 Instruction Type:Patient Education Patient Instructions Indication:Hypertension, essential, benign Start:01-Nov-2014 Instruction Type:Provider Instructions for Treatment Patient Instructions Indication:Hypertension, essential, benign Start:04-Jan-2014 Instruction Type:Provider Instructions for Treatment How to access health informa tion online Indication:Hypertension, essential, benign Start:04-Jan-2014 Instruction Type:Patient Education How to access health informa tion online - Detail Indication:Hypertension, essential, benign Start:04-Jan-2014 Instruction Type:Patient Education obesity counseling Indication:BMI 38.0-38.9,adult Start:20-Dec-2012 Instruction Type:Provider Instructions for Treatment Patient Instructions Indication:Hypertension, essential, benign Start:20-Dec-2012 Instruction Type:Provider Instructions for Treatment Patient Instructions Indication:Obesity Start:24-Feb-2012 Instruction Type:Provider Instructions for Treatment Patient Instructions Indication:Obesity Start:07-Feb-2012 Instruction Type:Provider Instructions for Treatment Patient Instructions Indication:Obesity Start:25-Jan-2012 Instruction Type:Provider Instructions for Treatment Patient Instructionscont eat ing plan and exercise Indication:Obesity Start:13-Jan-2012 Instruction Type:Provider Instructions for Treatment [facility]; [facility] Work Phone: Instructions* Name Dates Details Patient Instructions Indication:BMI 38.0-38.9,adult Start:20-May-2021 Instruction Type:Provider Instructions for Treatment How to Access Health Informa tion Online using Patient Portal and [employer] Apps Indication:BMI 38.0-38.9,adult Start:20-May-2021 Instruction Type:Patient Education Patient Instructions Indication:BMI 40.0-44.9, adult Start:06-May-2021 Instruction Type:Provider Instructions for Treatment How to Access Health Informa tion Online using Patient Portal and [employer] Apps Indication:BMI 40.0-44.9, adult Start:06-May-2021 Instruction Type:Patient Education Patient Instructions Indication:BMI 40.0-44.9, adult Start:06-Apr-2021 Instruction Type:Provider Instructions for Treatment How to Access Health Informa tion Online using Patient Portal and [employer]rd [employer] Apps Indication:BMI 40.0-44.9, adult Start:06-Apr-2021 Instruction Type:Patient Education Patient Instructions Indication:BMI 40.0-44.9, adult Start:25-Mar-2021 Instruction Type:Provider Instructions for Treatment How to Access Health Informa tion Online using Patient Portal and [employer]rd [employer] Apps Indication:BMI 40.0-44.9, adult Start:25-Mar-2021 Instruction Type:Patient Education Patient Instructions Indication:BMI 40.0-44.9, adult Start:11-Mar-2021 Instruction Type:Provider Instructions for Treatment How to Access Health Informa tion Online using Patient Portal and [employer] Apps Indication:BMI 40.0-44.9, adult Start:11-Mar-2021 Instruction Type:Patient Education How to access health informa tion online Indication:Non-smoker Start:21-Feb-2020 Instruction Type:Patient Education How to access health informa tion online - Detail Indication:Non-smoker Start:21-Feb-2020 Instruction Type:Patient Education Patient Instructions Indication:Non-smoker Start:21-Feb-2020 Instruction Type:Provider Instructions for Treatment How to access health informa tion online Indication:Non-smoker Start:18-Dec-2019 Instruction Type:Patient Education How to access health informa tion online - Detail Indication:Non-smoker Start:18-Dec-2019 Instruction Type:Patient Education Patient Instructions Indication:Non-smoker Start:18-Dec-2019 Instruction Type:Provider Instructions for Treatment How to access health informa tion online Indication:Non-smoker Start:27-Nov-2019 Instruction Type:Patient Education How to access health informa tion online - Detail Indication:Non-smoker Start:27-Nov-2019 Instruction Type:Patient Education Patient Instructions Indication:Non-smoker Start:27-Nov-2019 Instruction Type:Provider Instructions for Treatment How to access health informa tion online Indication:Non-smoker Start:30-Aug-2019 Instruction Type:Patient Education How to access health informa tion online - Detail Indication:Non-smoker Start:30-Aug-2019 Instruction Type:Patient Education Patient Instructions Indication:Non-smoker Start:30-Aug-2019 Instruction Type:Provider Instructions for Treatment How to access health informa tion online Indication:Weight gain Start:14-Feb-2019 Instruction Type:Patient Education How to access health informa tion online - Detail Indication:Weight gain Start:14-Feb-2019 Instruction Type:Patient Education Patient Instructions Indication:Weight gain Start:14-Feb-2019 Instruction Type:Provider Instructions for Treatment How to access health informa tion online Indication:BMI 34.0-34.9,adult Start:22-Sep-2018 Instruction Type:Patient Education How to access health informa tion online - Detail Indication:BMI 34.0-34.9,adult Start:22-Sep-2018 Instruction Type:Patient Education Patient Instructions Indication:BMI 34.0-34.9,adult Start:22-Sep-2018 Instruction Type:Provider Instructions for Treatment How to access health informa tion online Indication:Non-smoker Start:06-Sep-2018 Instruction Type:Patient Education How to access health informa tion online - Detail Indication:Non-smoker Start:06-Sep-2018 Instruction Type:Patient Education Patient Instructions Indication:Non-smoker Start:06-Sep-2018 Instruction Type:Provider Instructions for Treatment How to access health informa tion online Indication:BMI 36.0-36.9,adult Start:25-Aug-2018 Instruction Type:Patient Education How to access health informa tion online - Detail Indication:BMI 36.0-36.9,adult Start:25-Aug-2018 Instruction Type:Patient Education Patient Instructions Indication:BMI 36.0-36.9,adult Start:25-Aug-2018 Instruction Type:Provider Instructions for Treatment How to access health informa tion online Indication:BMI 38.0-38.9,adult Start:31-Jul-2018 Instruction Type:Patient Education How to access health informa tion online - Detail Indication:BMI 38.0-38.9,adult Start:31-Jul-2018 Instruction Type:Patient Education Patient Instructions Indication:BMI 38.0-38.9,adult Start:31-Jul-2018 Instruction Type:Provider Instructions for Treatment How to access health informa tion online Indication:Non-smoker Start:23-Jun-2018 Instruction Type:Patient Education How to access health informa tion online - Detail Indication:Non-smoker Start:23-Jun-2018 Instruction Type:Patient Education Patient Instructions Indication:Non-smoker Start:23-Jun-2018 Instruction Type:Provider Instructions for Treatment How to access health informa tion online Indication:Non-smoker Start:16-Jun-2018 Instruction Type:Patient Education How to access health informa tion online - Detail Indication:Non-smoker Start:16-Jun-2018 Instruction Type:Patient Education Patient Instructions Indication:Non-smoker Start:16-Jun-2018 Instruction Type:Provider Instructions for Treatment How to access health informa tion online Indication:Non-smoker Start:08-Nov-2017 Instruction Type:Patient Education How to access health informa tion online - Detail Indication:Non-smoker Start:08-Nov-2017 Instruction Type:Patient Education Patient Instructions Indication:Non-smoker Start:08-Nov-2017 Instruction Type:Provider Instructions for Treatment How to access health informa tion online Indication:BMI 36.0-36.9,adult Start:30-Sep-2017 Instruction Type:Patient Education How to access health informa tion online - Detail Indication:BMI 36.0-36.9,adult Start:30-Sep-2017 Instruction Type:Patient Education Patient Instructions Indication:BMI 36.0-36.9,adult Start:30-Sep-2017 Instruction Type:Provider Instructions for Treatment How to access health informa tion online Indication:BMI 37.0-37.9, adult Start:23-Aug-2017 Instruction Type:Patient Education How to access health informa tion online - Detail Indication:BMI 37.0-37.9, adult Start:23-Aug-2017 Instruction Type:Patient Education Patient Instructions Indication:BMI 37.0-37.9, adult Start:23-Aug-2017 Instruction Type:Provider Instructions for Treatment How to access health informa tion online Indication:BMI 35.0-35.9,adult Start:06-May-2017 Instruction Type:Patient Education How to access health informa tion online - Detail Indication:BMI 35.0-35.9,adult Start:06-May-2017 Instruction Type:Patient Education Patient Instructions Indication:BMI 35.0-35.9,adult Start:06-May-2017 Instruction Type:Provider Instructions for Treatment How to access health informa tion online Indication:BMI 36.0-36.9,adult Start:11-Mar-2017 Instruction Type:Patient Education How to access health informa tion online - Detail Indication:BMI 36.0-36.9,adult Start:11-Mar-2017 Instruction Type:Patient Education Patient Instructions Indication:BMI 36.0-36.9,adult Start:11-Mar-2017 Instruction Type:Provider Instructions for Treatment How to access health informa tion online Indication:Hypertension, essential, benign Start:07-Feb-2017 Instruction Type:Patient Education How to access health informa tion online - Detail Indication:Hypertension, essential, benign Start:07-Feb-2017 Instruction Type:Patient Education Patient Instructions Indication:Hypertension, essential, benign Start:07-Feb-2017 Instruction Type:Provider Instructions for Treatment How to access health informa tion online Indication:Flu-like symptoms Start:02-Jun-2016 Instruction Type:Patient Education How to access health informa tion online - Detail Indication:Flu-like symptoms Start:02-Jun-2016 Instruction Type:Patient Education Patient Instructions Indication:Flu-like symptoms Start:02-Jun-2016 Instruction Type:Provider Instructions for Treatment Patient Instructions Indication:Depression, acute Start:21-May-2016 Instruction Type:Provider Instructions for Treatment Patient Instructions Indication:Depression, acute Start:07-Apr-2016 Instruction Type:Provider Instructions for Treatment How to access health informa tion online Indication:Left upper quadrant abdominal tenderness Start:29-Sep-2015 Instruction Type:Patient Education How to access health informa tion online - Detail Indication:Left upper quadrant abdominal tenderness Start:29-Sep-2015 Instruction Type:Patient Education Patient Instructions Indication:Left upper quadrant abdominal tenderness Start:29-Sep-2015 Instruction Type:Provider Instructions for Treatment How to access health informa tion online Indication:Hypertension, essential, benign Start:01-Nov-2014 Instruction Type:Patient Education How to access health informa tion online - Detail Indication:Hypertension, essential, benign Start:01-Nov-2014 Instruction Type:Patient Education Patient Instructions Indication:Hypertension, essential, benign Start:01-Nov-2014 Instruction Type:Provider Instructions for Treatment Patient Instructions Indication:Hypertension, essential, benign Start:04-Jan-2014 Instruction Type:Provider Instructions for Treatment How to access health informa tion online Indication:Hypertension, essential, benign Start:04-Jan-2014 Instruction Type:Patient Education How to access health informa tion online - Detail Indication:Hypertension, essential, benign Start:04-Jan-2014 Instruction Type:Patient Education obesity counseling Indication:BMI 38.0-38.9,adult Start:20-Dec-2012 Instruction Type:Provider Instructions for Treatment Patient Instructions Indication:Hypertension, essential, benign Start:20-Dec-2012 Instruction Type:Provider Instructions for Treatment Patient Instructions Indication:Obesity Start:24-Feb-2012 Instruction Type:Provider Instructions for Treatment Patient Instructions Indication:Obesity Start:07-Feb-2012 Instruction Type:Provider Instructions for Treatment Patient Instructions Indication:Obesity Start:25-Jan-2012 Instruction Type:Provider Instructions for Treatment Patient Instructionscont eat ing plan and exercise Indication:Obesity Start:13-Jan-2012 Instruction Type:Provider Instructions for Treatment [facility]; [facility] Work Phone: Instructions* Name Dates Details Patient Instructions Indication:BMI 38.0-38.9,adult Start:20-May-2021 Instruction Type:Provider Instructions for Treatment How to Access Health Informa tion Online using Patient Portal and [employer]rd [employer] Apps Indication:BMI 38.0-38.9,adult Start:20-May-2021 Instruction Type:Patient Education Patient Instructions Indication:BMI 40.0-44.9, adult Start:06-May-2021 Instruction Type:Provider Instructions for Treatment How to Access Health Informa tion Online using Patient Portal and [employer]rd [employer] Apps Indication:BMI 40.0-44.9, adult Start:06-May-2021 Instruction Type:Patient Education Patient Instructions Indication:BMI 40.0-44.9, adult Start:06-Apr-2021 Instruction Type:Provider Instructions for Treatment How to Access Health Informa tion Online using Patient Portal and [employer]rd [employer] Apps Indication:BMI 40.0-44.9, adult Start:06-Apr-2021 Instruction Type:Patient Education Patient Instructions Indication:BMI 40.0-44.9, adult Start:25-Mar-2021 Instruction Type:Provider Instructions for Treatment How to Access Health Informa tion Online using Patient Portal and [employer]rd [employer] Apps Indication:BMI 40.0-44.9, adult Start:25-Mar-2021 Instruction Type:Patient Education Patient Instructions Indication:BMI 40.0-44.9, adult Start:11-Mar-2021 Instruction Type:Provider Instructions for Treatment How to Access Health Informa tion Online using Patient Portal and [employer]rd [employer] Apps Indication:BMI 40.0-44.9, adult Start:11-Mar-2021 Instruction Type:Patient Education How to access health informa tion online Indication:Non-smoker Start:21-Feb-2020 Instruction Type:Patient Education How to access health informa tion online - Detail Indication:Non-smoker Start:21-Feb-2020 Instruction Type:Patient Education Patient Instructions Indication:Non-smoker Start:21-Feb-2020 Instruction Type:Provider Instructions for Treatment How to access health informa tion online Indication:Non-smoker Start:18-Dec-2019 Instruction Type:Patient Education How to access health informa tion online - Detail Indication:Non-smoker Start:18-Dec-2019 Instruction Type:Patient Education Patient Instructions Indication:Non-smoker Start:18-Dec-2019 Instruction Type:Provider Instructions for Treatment How to access health informa tion online Indication:Non-smoker Start:27-Nov-2019 Instruction Type:Patient Education How to access health informa tion online - Detail Indication:Non-smoker Start:27-Nov-2019 Instruction Type:Patient Education Patient Instructions Indication:Non-smoker Start:27-Nov-2019 Instruction Type:Provider Instructions for Treatment How to access health informa tion online Indication:Non-smoker Start:30-Aug-2019 Instruction Type:Patient Education How to access health informa tion online - Detail Indication:Non-smoker Start:30-Aug-2019 Instruction Type:Patient Education Patient Instructions Indication:Non-smoker Start:30-Aug-2019 Instruction Type:Provider Instructions for Treatment How to access health informa tion online Indication:Weight gain Start:14-Feb-2019 Instruction Type:Patient Education How to access health informa tion online - Detail Indication:Weight gain Start:14-Feb-2019 Instruction Type:Patient Education Patient Instructions Indication:Weight gain Start:14-Feb-2019 Instruction Type:Provider Instructions for Treatment How to access health informa tion online Indication:BMI 34.0-34.9,adult Start:22-Sep-2018 Instruction Type:Patient Education How to access health informa tion online - Detail Indication:BMI 34.0-34.9,adult Start:22-Sep-2018 Instruction Type:Patient Education Patient Instructions Indication:BMI 34.0-34.9,adult Start:22-Sep-2018 Instruction Type:Provider Instructions for Treatment How to access health informa tion online Indication:Non-smoker Start:06-Sep-2018 Instruction Type:Patient Education How to access health informa tion online - Detail Indication:Non-smoker Start:06-Sep-2018 Instruction Type:Patient Education Patient Instructions Indication:Non-smoker Start:06-Sep-2018 Instruction Type:Provider Instructions for Treatment How to access health informa tion online Indication:BMI 36.0-36.9,adult Start:25-Aug-2018 Instruction Type:Patient Education How to access health informa tion online - Detail Indication:BMI 36.0-36.9,adult Start:25-Aug-2018 Instruction Type:Patient Education Patient Instructions Indication:BMI 36.0-36.9,adult Start:25-Aug-2018 Instruction Type:Provider Instructions for Treatment How to access health informa tion online Indication:BMI 38.0-38.9,adult Start:31-Jul-2018 Instruction Type:Patient Education How to access health informa tion online - Detail Indication:BMI 38.0-38.9,adult Start:31-Jul-2018 Instruction Type:Patient Education Patient Instructions Indication:BMI 38.0-38.9,adult Start:31-Jul-2018 Instruction Type:Provider Instructions for Treatment How to access health informa tion online Indication:Non-smoker Start:23-Jun-2018 Instruction Type:Patient Education How to access health informa tion online - Detail Indication:Non-smoker Start:23-Jun-2018 Instruction Type:Patient Education Patient Instructions Indication:Non-smoker Start:23-Jun-2018 Instruction Type:Provider Instructions for Treatment How to access health informa tion online Indication:Non-smoker Start:16-Jun-2018 Instruction Type:Patient Education How to access health informa tion online - Detail Indication:Non-smoker Start:16-Jun-2018 Instruction Type:Patient Education Patient Instructions Indication:Non-smoker Start:16-Jun-2018 Instruction Type:Provider Instructions for Treatment How to access health informa tion online Indication:Non-smoker Start:08-Nov-2017 Instruction Type:Patient Education How to access health informa tion online - Detail Indication:Non-smoker Start:08-Nov-2017 Instruction Type:Patient Education Patient Instructions Indication:Non-smoker Start:08-Nov-2017 Instruction Type:Provider Instructions for Treatment How to access health informa tion online Indication:BMI 36.0-36.9,adult Start:30-Sep-2017 Instruction Type:Patient Education How to access health informa tion online - Detail Indication:BMI 36.0-36.9,adult Start:30-Sep-2017 Instruction Type:Patient Education Patient Instructions Indication:BMI 36.0-36.9,adult Start:30-Sep-2017 Instruction Type:Provider Instructions for Treatment How to access health informa tion online Indication:BMI 37.0-37.9, adult Start:23-Aug-2017 Instruction Type:Patient Education How to access health informa tion online - Detail Indication:BMI 37.0-37.9, adult Start:23-Aug-2017 Instruction Type:Patient Education Patient Instructions Indication:BMI 37.0-37.9, adult Start:23-Aug-2017 Instruction Type:Provider Instructions for Treatment How to access health informa tion online Indication:BMI 35.0-35.9,adult Start:06-May-2017 Instruction Type:Patient Education How to access health informa tion online - Detail Indication:BMI 35.0-35.9,adult Start:06-May-2017 Instruction Type:Patient Education Patient Instructions Indication:BMI 35.0-35.9,adult Start:06-May-2017 Instruction Type:Provider Instructions for Treatment How to access health informa tion online Indication:BMI 36.0-36.9,adult Start:11-Mar-2017 Instruction Type:Patient Education How to access health informa tion online - Detail Indication:BMI 36.0-36.9,adult Start:11-Mar-2017 Instruction Type:Patient Education Patient Instructions Indication:BMI 36.0-36.9,adult Start:11-Mar-2017 Instruction Type:Provider Instructions for Treatment How to access health informa tion online Indication:Hypertension, essential, benign Start:07-Feb-2017 Instruction Type:Patient Education How to access health informa tion online - Detail Indication:Hypertension, essential, benign Start:07-Feb-2017 Instruction Type:Patient Education Patient Instructions Indication:Hypertension, essential, benign Start:07-Feb-2017 Instruction Type:Provider Instructions for Treatment How to access health informa tion online Indication:Flu-like symptoms Start:02-Jun-2016 Instruction Type:Patient Education How to access health informa tion online - Detail Indication:Flu-like symptoms Start:02-Jun-2016 Instruction Type:Patient Education Patient Instructions Indication:Flu-like symptoms Start:02-Jun-2016 Instruction Type:Provider Instructions for Treatment Patient Instructions Indication:Depression, acute Start:21-May-2016 Instruction Type:Provider Instructions for Treatment Patient Instructions Indication:Depression, acute Start:07-Apr-2016 Instruction Type:Provider Instructions for Treatment How to access health informa tion online Indication:Left upper quadrant abdominal tenderness Start:29-Sep-2015 Instruction Type:Patient Education How to access health informa tion online - Detail Indication:Left upper quadrant abdominal tenderness Start:29-Sep-2015 Instruction Type:Patient Education Patient Instructions Indication:Left upper quadrant abdominal tenderness Start:29-Sep-2015 Instruction Type:Provider Instructions for Treatment How to access health informa tion online Indication:Hypertension, essential, benign Start:01-Nov-2014 Instruction Type:Patient Education How to access health informa tion online - Detail Indication:Hypertension, essential, benign Start:01-Nov-2014 Instruction Type:Patient Education Patient Instructions Indication:Hypertension, essential, benign Start:01-Nov-2014 Instruction Type:Provider Instructions for Treatment Patient Instructions Indication:Hypertension, essential, benign Start:04-Jan-2014 Instruction Type:Provider Instructions for Treatment How to access health informa tion online Indication:Hypertension, essential, benign Start:04-Jan-2014 Instruction Type:Patient Education How to access health informa tion online - Detail Indication:Hypertension, essential, benign Start:04-Jan-2014 Instruction Type:Patient Education obesity counseling Indication:BMI 38.0-38.9,adult Start:20-Dec-2012 Instruction Type:Provider Instructions for Treatment Patient Instructions Indication:Hypertension, essential, benign Start:20-Dec-2012 Instruction Type:Provider Instructions for Treatment Patient Instructions Indication:Obesity Start:24-Feb-2012 Instruction Type:Provider Instructions for Treatment Patient Instructions Indication:Obesity Start:07-Feb-2012 Instruction Type:Provider Instructions for Treatment Patient Instructions Indication:Obesity Start:25-Jan-2012 Instruction Type:Provider Instructions for Treatment Patient Instructionscont eat ing plan and exercise Indication:Obesity Start:13-Jan-2012 Instruction Type:Provider Instructions for Treatment [facility]; [facility] Work Phone: Instructions* Name Dates Details Patient Instructions Indication:BMI 38.0-38.9,adult Start:20-May-2021 Instruction Type:Provider Instructions for Treatment How to Access Health Informa tion Online using Patient Portal and [employer]rd [employer] Apps Indication:BMI 38.0-38.9,adult Start:20-May-2021 Instruction Type:Patient Education Patient Instructions Indication:BMI 40.0-44.9, adult Start:06-May-2021 Instruction Type:Provider Instructions for Treatment How to Access Health Informa tion Online using Patient Portal and [employer]rd [employer] Apps Indication:BMI 40.0-44.9, adult Start:06-May-2021 Instruction Type:Patient Education Patient Instructions Indication:BMI 40.0-44.9, adult Start:06-Apr-2021 Instruction Type:Provider Instructions for Treatment How to Access Health Informa tion Online using Patient Portal and [employer]rd [employer] Apps Indication:BMI 40.0-44.9, adult Start:06-Apr-2021 Instruction Type:Patient Education Patient Instructions Indication:BMI 40.0-44.9, adult Start:25-Mar-2021 Instruction Type:Provider Instructions for Treatment How to Access Health Informa tion Online using Patient Portal and [employer]rd [employer] Apps Indication:BMI 40.0-44.9, adult Start:25-Mar-2021 Instruction Type:Patient Education Patient Instructions Indication:BMI 40.0-44.9, adult Start:11-Mar-2021 Instruction Type:Provider Instructions for Treatment How to Access Health Informa tion Online using Patient Portal and [employer] Apps Indication:BMI 40.0-44.9, adult Start:11-Mar-2021 Instruction Type:Patient Education How to access health informa tion online Indication:Non-smoker Start:21-Feb-2020 Instruction Type:Patient Education How to access health informa tion online - Detail Indication:Non-smoker Start:21-Feb-2020 Instruction Type:Patient Education Patient Instructions Indication:Non-smoker Start:21-Feb-2020 Instruction Type:Provider Instructions for Treatment How to access health informa tion online Indication:Non-smoker Start:18-Dec-2019 Instruction Type:Patient Education How to access health informa tion online - Detail Indication:Non-smoker Start:18-Dec-2019 Instruction Type:Patient Education Patient Instructions Indication:Non-smoker Start:18-Dec-2019 Instruction Type:Provider Instructions for Treatment How to access health informa tion online Indication:Non-smoker Start:27-Nov-2019 Instruction Type:Patient Education How to access health informa tion online - Detail Indication:Non-smoker Start:27-Nov-2019 Instruction Type:Patient Education Patient Instructions Indication:Non-smoker Start:27-Nov-2019 Instruction Type:Provider Instructions for Treatment How to access health informa tion online Indication:Non-smoker Start:30-Aug-2019 Instruction Type:Patient Education How to access health informa tion online - Detail Indication:Non-smoker Start:30-Aug-2019 Instruction Type:Patient Education Patient Instructions Indication:Non-smoker Start:30-Aug-2019 Instruction Type:Provider Instructions for Treatment How to access health informa tion online Indication:Weight gain Start:14-Feb-2019 Instruction Type:Patient Education How to access health informa tion online - Detail Indication:Weight gain Start:14-Feb-2019 Instruction Type:Patient Education Patient Instructions Indication:Weight gain Start:14-Feb-2019 Instruction Type:Provider Instructions for Treatment How to access health informa tion online Indication:BMI 34.0-34.9,adult Start:22-Sep-2018 Instruction Type:Patient Education How to access health informa tion online - Detail Indication:BMI 34.0-34.9,adult Start:22-Sep-2018 Instruction Type:Patient Education Patient Instructions Indication:BMI 34.0-34.9,adult Start:22-Sep-2018 Instruction Type:Provider Instructions for Treatment How to access health informa tion online Indication:Non-smoker Start:06-Sep-2018 Instruction Type:Patient Education How to access health informa tion online - Detail Indication:Non-smoker Start:06-Sep-2018 Instruction Type:Patient Education Patient Instructions Indication:Non-smoker Start:06-Sep-2018 Instruction Type:Provider Instructions for Treatment How to access health informa tion online Indication:BMI 36.0-36.9,adult Start:25-Aug-2018 Instruction Type:Patient Education How to access health informa tion online - Detail Indication:BMI 36.0-36.9,adult Start:25-Aug-2018 Instruction Type:Patient Education Patient Instructions Indication:BMI 36.0-36.9,adult Start:25-Aug-2018 Instruction Type:Provider Instructions for Treatment How to access health informa tion online Indication:BMI 38.0-38.9,adult Start:31-Jul-2018 Instruction Type:Patient Education How to access health informa tion online - Detail Indication:BMI 38.0-38.9,adult Start:31-Jul-2018 Instruction Type:Patient Education Patient Instructions Indication:BMI 38.0-38.9,adult Start:31-Jul-2018 Instruction Type:Provider Instructions for Treatment How to access health informa tion online Indication:Non-smoker Start:23-Jun-2018 Instruction Type:Patient Education How to access health informa tion online - Detail Indication:Non-smoker Start:23-Jun-2018 Instruction Type:Patient Education Patient Instructions Indication:Non-smoker Start:23-Jun-2018 Instruction Type:Provider Instructions for Treatment How to access health informa tion online Indication:Non-smoker Start:16-Jun-2018 Instruction Type:Patient Education How to access health informa tion online - Detail Indication:Non-smoker Start:16-Jun-2018 Instruction Type:Patient Education Patient Instructions Indication:Non-smoker Start:16-Jun-2018 Instruction Type:Provider Instructions for Treatment How to access health informa tion online Indication:Non-smoker Start:08-Nov-2017 Instruction Type:Patient Education How to access health informa tion online - Detail Indication:Non-smoker Start:08-Nov-2017 Instruction Type:Patient Education Patient Instructions Indication:Non-smoker Start:08-Nov-2017 Instruction Type:Provider Instructions for Treatment How to access health informa tion online Indication:BMI 36.0-36.9,adult Start:30-Sep-2017 Instruction Type:Patient Education How to access health informa tion online - Detail Indication:BMI 36.0-36.9,adult Start:30-Sep-2017 Instruction Type:Patient Education Patient Instructions Indication:BMI 36.0-36.9,adult Start:30-Sep-2017 Instruction Type:Provider Instructions for Treatment How to access health informa tion online Indication:BMI 37.0-37.9, adult Start:23-Aug-2017 Instruction Type:Patient Education How to access health informa tion online - Detail Indication:BMI 37.0-37.9, adult Start:23-Aug-2017 Instruction Type:Patient Education Patient Instructions Indication:BMI 37.0-37.9, adult Start:23-Aug-2017 Instruction Type:Provider Instructions for Treatment How to access health informa tion online Indication:BMI 35.0-35.9,adult Start:06-May-2017 Instruction Type:Patient Education How to access health informa tion online - Detail Indication:BMI 35.0-35.9,adult Start:06-May-2017 Instruction Type:Patient Education Patient Instructions Indication:BMI 35.0-35.9,adult Start:06-May-2017 Instruction Type:Provider Instructions for Treatment How to access health informa tion online Indication:BMI 36.0-36.9,adult Start:11-Mar-2017 Instruction Type:Patient Education How to access health informa tion online - Detail Indication:BMI 36.0-36.9,adult Start:11-Mar-2017 Instruction Type:Patient Education Patient Instructions Indication:BMI 36.0-36.9,adult Start:11-Mar-2017 Instruction Type:Provider Instructions for Treatment How to access health informa tion online Indication:Hypertension, essential, benign Start:07-Feb-2017 Instruction Type:Patient Education How to access health informa tion online - Detail Indication:Hypertension, essential, benign Start:07-Feb-2017 Instruction Type:Patient Education Patient Instructions Indication:Hypertension, essential, benign Start:07-Feb-2017 Instruction Type:Provider Instructions for Treatment How to access health informa tion online Indication:Flu-like symptoms Start:02-Jun-2016 Instruction Type:Patient Education How to access health informa tion online - Detail Indication:Flu-like symptoms Start:02-Jun-2016 Instruction Type:Patient Education Patient Instructions Indication:Flu-like symptoms Start:02-Jun-2016 Instruction Type:Provider Instructions for Treatment Patient Instructions Indication:Depression, acute Start:21-May-2016 Instruction Type:Provider Instructions for Treatment Patient Instructions Indication:Depression, acute Start:07-Apr-2016 Instruction Type:Provider Instructions for Treatment How to access health informa tion online Indication:Left upper quadrant abdominal tenderness Start:29-Sep-2015 Instruction Type:Patient Education How to access health informa tion online - Detail Indication:Left upper quadrant abdominal tenderness Start:29-Sep-2015 Instruction Type:Patient Education Patient Instructions Indication:Left upper quadrant abdominal tenderness Start:29-Sep-2015 Instruction Type:Provider Instructions for Treatment How to access health informa tion online Indication:Hypertension, essential, benign Start:01-Nov-2014 Instruction Type:Patient Education How to access health informa tion online - Detail Indication:Hypertension, essential, benign Start:01-Nov-2014 Instruction Type:Patient Education Patient Instructions Indication:Hypertension, essential, benign Start:01-Nov-2014 Instruction Type:Provider Instructions for Treatment Patient Instructions Indication:Hypertension, essential, benign Start:04-Jan-2014 Instruction Type:Provider Instructions for Treatment How to access health informa tion online Indication:Hypertension, essential, benign Start:04-Jan-2014 Instruction Type:Patient Education How to access health informa tion online - Detail Indication:Hypertension, essential, benign Start:04-Jan-2014 Instruction Type:Patient Education obesity counseling Indication:BMI 38.0-38.9,adult Start:20-Dec-2012 Instruction Type:Provider Instructions for Treatment Patient Instructions Indication:Hypertension, essential, benign Start:20-Dec-2012 Instruction Type:Provider Instructions for Treatment Patient Instructions Indication:Obesity Start:24-Feb-2012 Instruction Type:Provider Instructions for Treatment Patient Instructions Indication:Obesity Start:07-Feb-2012 Instruction Type:Provider Instructions for Treatment Patient Instructions Indication:Obesity Start:25-Jan-2012 Instruction Type:Provider Instructions for Treatment Patient Instructionscont eat ing plan and exercise Indication:Obesity Start:13-Jan-2012 Instruction Type:Provider Instructions for Treatment [facility]; [facility] Work Phone: Instructions* Name Dates Details Patient Instructions Indication:BMI 38.0-38.9,adult Start:20-May-2021 Instruction Type:Provider Instructions for Treatment How to Access Health Informa tion Online using Patient Portal and [employer]rd [employer] Apps Indication:BMI 38.0-38.9,adult Start:20-May-2021 Instruction Type:Patient Education Patient Instructions Indication:BMI 40.0-44.9, adult Start:06-May-2021 Instruction Type:Provider Instructions for Treatment How to Access Health Informa tion Online using Patient Portal and [employer]rd [employer] Apps Indication:BMI 40.0-44.9, adult Start:06-May-2021 Instruction Type:Patient Education Patient Instructions Indication:BMI 40.0-44.9, adult Start:06-Apr-2021 Instruction Type:Provider Instructions for Treatment How to Access Health Informa tion Online using Patient Portal and [employer] Apps Indication:BMI 40.0-44.9, adult Start:06-Apr-2021 Instruction Type:Patient Education Patient Instructions Indication:BMI 40.0-44.9, adult Start:25-Mar-2021 Instruction Type:Provider Instructions for Treatment How to Access Health Informa tion Online using Patient Portal and [employer]rd [employer] Apps Indication:BMI 40.0-44.9, adult Start:25-Mar-2021 Instruction Type:Patient Education Patient Instructions Indication:BMI 40.0-44.9, adult Start:11-Mar-2021 Instruction Type:Provider Instructions for Treatment How to Access Health Informa tion Online using Patient Portal and [employer] Apps Indication:BMI 40.0-44.9, adult Start:11-Mar-2021 Instruction Type:Patient Education How to access health informa tion online Indication:Non-smoker Start:21-Feb-2020 Instruction Type:Patient Education How to access health informa tion online - Detail Indication:Non-smoker Start:21-Feb-2020 Instruction Type:Patient Education Patient Instructions Indication:Non-smoker Start:21-Feb-2020 Instruction Type:Provider Instructions for Treatment How to access health informa tion online Indication:Non-smoker Start:18-Dec-2019 Instruction Type:Patient Education How to access health informa tion online - Detail Indication:Non-smoker Start:18-Dec-2019 Instruction Type:Patient Education Patient Instructions Indication:Non-smoker Start:18-Dec-2019 Instruction Type:Provider Instructions for Treatment How to access health informa tion online Indication:Non-smoker Start:27-Nov-2019 Instruction Type:Patient Education How to access health informa tion online - Detail Indication:Non-smoker Start:27-Nov-2019 Instruction Type:Patient Education Patient Instructions Indication:Non-smoker Start:27-Nov-2019 Instruction Type:Provider Instructions for Treatment How to access health informa tion online Indication:Non-smoker Start:30-Aug-2019 Instruction Type:Patient Education How to access health informa tion online - Detail Indication:Non-smoker Start:30-Aug-2019 Instruction Type:Patient Education Patient Instructions Indication:Non-smoker Start:30-Aug-2019 Instruction Type:Provider Instructions for Treatment How to access health informa tion online Indication:Weight gain Start:14-Feb-2019 Instruction Type:Patient Education How to access health informa tion online - Detail Indication:Weight gain Start:14-Feb-2019 Instruction Type:Patient Education Patient Instructions Indication:Weight gain Start:14-Feb-2019 Instruction Type:Provider Instructions for Treatment How to access health informa tion online Indication:BMI 34.0-34.9,adult Start:22-Sep-2018 Instruction Type:Patient Education How to access health informa tion online - Detail Indication:BMI 34.0-34.9,adult Start:22-Sep-2018 Instruction Type:Patient Education Patient Instructions Indication:BMI 34.0-34.9,adult Start:22-Sep-2018 Instruction Type:Provider Instructions for Treatment How to access health informa tion online Indication:Non-smoker Start:06-Sep-2018 Instruction Type:Patient Education How to access health informa tion online - Detail Indication:Non-smoker Start:06-Sep-2018 Instruction Type:Patient Education Patient Instructions Indication:Non-smoker Start:06-Sep-2018 Instruction Type:Provider Instructions for Treatment How to access health informa tion online Indication:BMI 36.0-36.9,adult Start:25-Aug-2018 Instruction Type:Patient Education How to access health informa tion online - Detail Indication:BMI 36.0-36.9,adult Start:25-Aug-2018 Instruction Type:Patient Education Patient Instructions Indication:BMI 36.0-36.9,adult Start:25-Aug-2018 Instruction Type:Provider Instructions for Treatment How to access health informa tion online Indication:BMI 38.0-38.9,adult Start:31-Jul-2018 Instruction Type:Patient Education How to access health informa tion online - Detail Indication:BMI 38.0-38.9,adult Start:31-Jul-2018 Instruction Type:Patient Education Patient Instructions Indication:BMI 38.0-38.9,adult Start:31-Jul-2018 Instruction Type:Provider Instructions for Treatment How to access health informa tion online Indication:Non-smoker Start:23-Jun-2018 Instruction Type:Patient Education How to access health informa tion online - Detail Indication:Non-smoker Start:23-Jun-2018 Instruction Type:Patient Education Patient Instructions Indication:Non-smoker Start:23-Jun-2018 Instruction Type:Provider Instructions for Treatment How to access health informa tion online Indication:Non-smoker Start:16-Jun-2018 Instruction Type:Patient Education How to access health informa tion online - Detail Indication:Non-smoker Start:16-Jun-2018 Instruction Type:Patient Education Patient Instructions Indication:Non-smoker Start:16-Jun-2018 Instruction Type:Provider Instructions for Treatment How to access health informa tion online Indication:Non-smoker Start:08-Nov-2017 Instruction Type:Patient Education How to access health informa tion online - Detail Indication:Non-smoker Start:08-Nov-2017 Instruction Type:Patient Education Patient Instructions Indication:Non-smoker Start:08-Nov-2017 Instruction Type:Provider Instructions for Treatment How to access health informa tion online Indication:BMI 36.0-36.9,adult Start:30-Sep-2017 Instruction Type:Patient Education How to access health informa tion online - Detail Indication:BMI 36.0-36.9,adult Start:30-Sep-2017 Instruction Type:Patient Education Patient Instructions Indication:BMI 36.0-36.9,adult Start:30-Sep-2017 Instruction Type:Provider Instructions for Treatment How to access health informa tion online Indication:BMI 37.0-37.9, adult Start:23-Aug-2017 Instruction Type:Patient Education How to access health informa tion online - Detail Indication:BMI 37.0-37.9, adult Start:23-Aug-2017 Instruction Type:Patient Education Patient Instructions Indication:BMI 37.0-37.9, adult Start:23-Aug-2017 Instruction Type:Provider Instructions for Treatment How to access health informa tion online Indication:BMI 35.0-35.9,adult Start:06-May-2017 Instruction Type:Patient Education How to access health informa tion online - Detail Indication:BMI 35.0-35.9,adult Start:06-May-2017 Instruction Type:Patient Education Patient Instructions Indication:BMI 35.0-35.9,adult Start:06-May-2017 Instruction Type:Provider Instructions for Treatment How to access health informa tion online Indication:BMI 36.0-36.9,adult Start:11-Mar-2017 Instruction Type:Patient Education How to access health informa tion online - Detail Indication:BMI 36.0-36.9,adult Start:11-Mar-2017 Instruction Type:Patient Education Patient Instructions Indication:BMI 36.0-36.9,adult Start:11-Mar-2017 Instruction Type:Provider Instructions for Treatment How to access health informa tion online Indication:Hypertension, essential, benign Start:07-Feb-2017 Instruction Type:Patient Education How to access health informa tion online - Detail Indication:Hypertension, essential, benign Start:07-Feb-2017 Instruction Type:Patient Education Patient Instructions Indication:Hypertension, essential, benign Start:07-Feb-2017 Instruction Type:Provider Instructions for Treatment How to access health informa tion online Indication:Flu-like symptoms Start:02-Jun-2016 Instruction Type:Patient Education How to access health informa tion online - Detail Indication:Flu-like symptoms Start:02-Jun-2016 Instruction Type:Patient Education Patient Instructions Indication:Flu-like symptoms Start:02-Jun-2016 Instruction Type:Provider Instructions for Treatment Patient Instructions Indication:Depression, acute Start:21-May-2016 Instruction Type:Provider Instructions for Treatment Patient Instructions Indication:Depression, acute Start:07-Apr-2016 Instruction Type:Provider Instructions for Treatment How to access health informa tion online Indication:Left upper quadrant abdominal tenderness Start:29-Sep-2015 Instruction Type:Patient Education How to access health informa tion online - Detail Indication:Left upper quadrant abdominal tenderness Start:29-Sep-2015 Instruction Type:Patient Education Patient Instructions Indication:Left upper quadrant abdominal tenderness Start:29-Sep-2015 Instruction Type:Provider Instructions for Treatment How to access health informa tion online Indication:Hypertension, essential, benign Start:01-Nov-2014 Instruction Type:Patient Education How to access health informa tion online - Detail Indication:Hypertension, essential, benign Start:01-Nov-2014 Instruction Type:Patient Education Patient Instructions Indication:Hypertension, essential, benign Start:01-Nov-2014 Instruction Type:Provider Instructions for Treatment Patient Instructions Indication:Hypertension, essential, benign Start:04-Jan-2014 Instruction Type:Provider Instructions for Treatment How to access health informa tion online Indication:Hypertension, essential, benign Start:04-Jan-2014 Instruction Type:Patient Education How to access health informa tion online - Detail Indication:Hypertension, essential, benign Start:04-Jan-2014 Instruction Type:Patient Education obesity counseling Indication:BMI 38.0-38.9,adult Start:20-Dec-2012 Instruction Type:Provider Instructions for Treatment Patient Instructions Indication:Hypertension, essential, benign Start:20-Dec-2012 Instruction Type:Provider Instructions for Treatment Patient Instructions Indication:Obesity Start:24-Feb-2012 Instruction Type:Provider Instructions for Treatment Patient Instructions Indication:Obesity Start:07-Feb-2012 Instruction Type:Provider Instructions for Treatment Patient Instructions Indication:Obesity Start:25-Jan-2012 Instruction Type:Provider Instructions for Treatment Patient Instructionscont eat ing plan and exercise Indication:Obesity Start:13-Jan-2012 Instruction Type:Provider Instructions for Treatment [facility]; [facility] Work Phone: Instructions* Name Dates Details Patient Instructions Indication:Non-smoker Start:25-Dec-2021 Instruction Type:Provider Instructions for Treatment How to Access Health Informa tion Online using Patient Portal and [employer] Apps Indication:Non-smoker Start:25-Dec-2021 Instruction Type:Patient Education Patient Instructions Indication:BMI 38.0-38.9,adult Start:20-May-2021 Instruction Type:Provider Instructions for Treatment How to Access Health Informa tion Online using Patient Portal and [employer] Apps Indication:BMI 38.0-38.9,adult Start:20-May-2021 Instruction Type:Patient Education Patient Instructions Indication:BMI 40.0-44.9, adult Start:06-May-2021 Instruction Type:Provider Instructions for Treatment How to Access Health Informa tion Online using Patient Portal and [employer] Indication:BMI 40.0-44.9, adult Start:06-May-2021 Instruction Type:Patient Education Patient Instructions Indication:BMI 40.0-44.9, adult Start:06-Apr-2021 Instruction Type:Provider Instructions for Treatment How to Access Health Informa tion Online using Patient Portal and [employer] Apps Indication:BMI 40.0-44.9, adult Start:06-Apr-2021 Instruction Type:Patient Education Patient Instructions Indication:BMI 40.0-44.9, adult Start:25-Mar-2021 Instruction Type:Provider Instructions for Treatment How to Access Health Informa tion Online using Patient Portal and [employer] Apps Indication:BMI 40.0-44.9, adult Start:25-Mar-2021 Instruction Type:Patient Education Patient Instructions Indication:BMI 40.0-44.9, adult Start:11-Mar-2021 Instruction Type:Provider Instructions for Treatment How to Access Health Informa tion Online using Patient Portal and [employer] Apps Indication:BMI 40.0-44.9, adult Start:11-Mar-2021 Instruction Type:Patient Education How to access health informa tion online Indication:Non-smoker Start:21-Feb-2020 Instruction Type:Patient Education How to access health informa tion online - Detail Indication:Non-smoker Start:21-Feb-2020 Instruction Type:Patient Education Patient Instructions Indication:Non-smoker Start:21-Feb-2020 Instruction Type:Provider Instructions for Treatment How to access health informa tion online Indication:Non-smoker Start:18-Dec-2019 Instruction Type:Patient Education How to access health informa tion online - Detail Indication:Non-smoker Start:18-Dec-2019 Instruction Type:Patient Education Patient Instructions Indication:Non-smoker Start:18-Dec-2019 Instruction Type:Provider Instructions for Treatment How to access health informa tion online Indication:Non-smoker Start:27-Nov-2019 Instruction Type:Patient Education How to access health informa tion online - Detail Indication:Non-smoker Start:27-Nov-2019 Instruction Type:Patient Education Patient Instructions Indication:Non-smoker Start:27-Nov-2019 Instruction Type:Provider Instructions for Treatment How to access health informa tion online Indication:Non-smoker Start:30-Aug-2019 Instruction Type:Patient Education How to access health informa tion online - Detail Indication:Non-smoker Start:30-Aug-2019 Instruction Type:Patient Education Patient Instructions Indication:Non-smoker Start:30-Aug-2019 Instruction Type:Provider Instructions for Treatment How to access health informa tion online Indication:Weight gain Start:14-Feb-2019 Instruction Type:Patient Education How to access health informa tion online - Detail Indication:Weight gain Start:14-Feb-2019 Instruction Type:Patient Education Patient Instructions Indication:Weight gain Start:14-Feb-2019 Instruction Type:Provider Instructions for Treatment How to access health informa tion online Indication:BMI 34.0-34.9,adult Start:22-Sep-2018 Instruction Type:Patient Education How to access health informa tion online - Detail Indication:BMI 34.0-34.9,adult Start:22-Sep-2018 Instruction Type:Patient Education Patient Instructions Indication:BMI 34.0-34.9,adult Start:22-Sep-2018 Instruction Type:Provider Instructions for Treatment How to access health informa tion online Indication:Non-smoker Start:06-Sep-2018 Instruction Type:Patient Education How to access health informa tion online - Detail Indication:Non-smoker Start:06-Sep-2018 Instruction Type:Patient Education Patient Instructions Indication:Non-smoker Start:06-Sep-2018 Instruction Type:Provider Instructions for Treatment How to access health informa tion online Indication:BMI 36.0-36.9,adult Start:25-Aug-2018 Instruction Type:Patient Education How to access health informa tion online - Detail Indication:BMI 36.0-36.9,adult Start:25-Aug-2018 Instruction Type:Patient Education Patient Instructions Indication:BMI 36.0-36.9,adult Start:25-Aug-2018 Instruction Type:Provider Instructions for Treatment How to access health informa tion online Indication:BMI 38.0-38.9,adult Start:31-Jul-2018 Instruction Type:Patient Education How to access health informa tion online - Detail Indication:BMI 38.0-38.9,adult Start:31-Jul-2018 Instruction Type:Patient Education Patient Instructions Indication:BMI 38.0-38.9,adult Start:31-Jul-2018 Instruction Type:Provider Instructions for Treatment How to access health informa tion online Indication:Non-smoker Start:23-Jun-2018 Instruction Type:Patient Education How to access health informa tion online - Detail Indication:Non-smoker Start:23-Jun-2018 Instruction Type:Patient Education Patient Instructions Indication:Non-smoker Start:23-Jun-2018 Instruction Type:Provider Instructions for Treatment How to access health informa tion online Indication:Non-smoker Start:16-Jun-2018 Instruction Type:Patient Education How to access health informa tion online - Detail Indication:Non-smoker Start:16-Jun-2018 Instruction Type:Patient Education Patient Instructions Indication:Non-smoker Start:16-Jun-2018 Instruction Type:Provider Instructions for Treatment How to access health informa tion online Indication:Non-smoker Start:08-Nov-2017 Instruction Type:Patient Education How to access health informa tion online - Detail Indication:Non-smoker Start:08-Nov-2017 Instruction Type:Patient Education Patient Instructions Indication:Non-smoker Start:08-Nov-2017 Instruction Type:Provider Instructions for Treatment How to access health informa tion online Indication:BMI 36.0-36.9,adult Start:30-Sep-2017 Instruction Type:Patient Education How to access health informa tion online - Detail Indication:BMI 36.0-36.9,adult Start:30-Sep-2017 Instruction Type:Patient Education Patient Instructions Indication:BMI 36.0-36.9,adult Start:30-Sep-2017 Instruction Type:Provider Instructions for Treatment How to access health informa tion online Indication:BMI 37.0-37.9, adult Start:23-Aug-2017 Instruction Type:Patient Education How to access health informa tion online - Detail Indication:BMI 37.0-37.9, adult Start:23-Aug-2017 Instruction Type:Patient Education Patient Instructions Indication:BMI 37.0-37.9, adult Start:23-Aug-2017 Instruction Type:Provider Instructions for Treatment How to access health informa tion online Indication:BMI 35.0-35.9,adult Start:06-May-2017 Instruction Type:Patient Education How to access health informa tion online - Detail Indication:BMI 35.0-35.9,adult Start:06-May-2017 Instruction Type:Patient Education Patient Instructions Indication:BMI 35.0-35.9,adult Start:06-May-2017 Instruction Type:Provider Instructions for Treatment How to access health informa tion online Indication:BMI 36.0-36.9,adult Start:11-Mar-2017 Instruction Type:Patient Education How to access health informa tion online - Detail Indication:BMI 36.0-36.9,adult Start:11-Mar-2017 Instruction Type:Patient Education Patient Instructions Indication:BMI 36.0-36.9,adult Start:11-Mar-2017 Instruction Type:Provider Instructions for Treatment How to access health informa tion online Indication:Hypertension, essential, benign Start:07-Feb-2017 Instruction Type:Patient Education How to access health informa tion online - Detail Indication:Hypertension, essential, benign Start:07-Feb-2017 Instruction Type:Patient Education Patient Instructions Indication:Hypertension, essential, benign Start:07-Feb-2017 Instruction Type:Provider Instructions for Treatment How to access health informa tion online Indication:Flu-like symptoms Start:02-Jun-2016 Instruction Type:Patient Education How to access health informa tion online - Detail Indication:Flu-like symptoms Start:02-Jun-2016 Instruction Type:Patient Education Patient Instructions Indication:Flu-like symptoms Start:02-Jun-2016 Instruction Type:Provider Instructions for Treatment Patient Instructions Indication:Depression, acute Start:21-May-2016 Instruction Type:Provider Instructions for Treatment Patient Instructions Indication:Depression, acute Start:07-Apr-2016 Instruction Type:Provider Instructions for Treatment How to access health informa tion online Indication:Left upper quadrant abdominal tenderness Start:29-Sep-2015 Instruction Type:Patient Education How to access health informa tion online - Detail Indication:Left upper quadrant abdominal tenderness Start:29-Sep-2015 Instruction Type:Patient Education Patient Instructions Indication:Left upper quadrant abdominal tenderness Start:29-Sep-2015 Instruction Type:Provider Instructions for Treatment How to access health informa tion online Indication:Hypertension, essential, benign Start:01-Nov-2014 Instruction Type:Patient Education How to access health informa tion online - Detail Indication:Hypertension, essential, benign Start:01-Nov-2014 Instruction Type:Patient Education Patient Instructions Indication:Hypertension, essential, benign Start:01-Nov-2014 Instruction Type:Provider Instructions for Treatment Patient Instructions Indication:Hypertension, essential, benign Start:04-Jan-2014 Instruction Type:Provider Instructions for Treatment How to access health informa tion online Indication:Hypertension, essential, benign Start:04-Jan-2014 Instruction Type:Patient Education How to access health informa tion online - Detail Indication:Hypertension, essential, benign Start:04-Jan-2014 Instruction Type:Patient Education obesity counseling Indication:BMI 38.0-38.9,adult Start:20-Dec-2012 Instruction Type:Provider Instructions for Treatment Patient Instructions Indication:Hypertension, essential, benign Start:20-Dec-2012 Instruction Type:Provider Instructions for Treatment Patient Instructions Indication:Obesity Start:24-Feb-2012 Instruction Type:Provider Instructions for Treatment Patient Instructions Indication:Obesity Start:07-Feb-2012 Instruction Type:Provider Instructions for Treatment Patient Instructions Indication:Obesity Start:25-Jan-2012 Instruction Type:Provider Instructions for Treatment Patient Instructionscont eat ing plan and exercise Indication:Obesity Start:13-Jan-2012 Instruction Type:Provider Instructions for Treatment [facility]; [facility] Work Phone: Instructions* Name Dates Details Patient Instructions Indication:Non-smoker Start:25-Dec-2021 Instruction Type:Provider Instructions for Treatment How to Access Health Informa tion Online using Patient Portal and [employer] Apps Indication:Non-smoker Start:25-Dec-2021 Instruction Type:Patient Education Patient Instructions Indication:BMI 38.0-38.9,adult Start:20-May-2021 Instruction Type:Provider Instructions for Treatment How to Access Health Informa tion Online using Patient Portal and [employer] Apps Indication:BMI 38.0-38.9,adult Start:20-May-2021 Instruction Type:Patient Education Patient Instructions Indication:BMI 40.0-44.9, adult Start:06-May-2021 Instruction Type:Provider Instructions for Treatment How to Access Health Informa tion Online using Patient Portal and [employer] Apps Indication:BMI 40.0-44.9, adult Start:06-May-2021 Instruction Type:Patient Education Patient Instructions Indication:BMI 40.0-44.9, adult Start:06-Apr-2021 Instruction Type:Provider Instructions for Treatment How to Access Health Informa tion Online using Patient Portal and [employer] Apps Indication:BMI 40.0-44.9, adult Start:06-Apr-2021 Instruction Type:Patient Education Patient Instructions Indication:BMI 40.0-44.9, adult Start:25-Mar-2021 Instruction Type:Provider Instructions for Treatment How to Access Health Informa tion Online using Patient Portal and [employer] Apps Indication:BMI 40.0-44.9, adult Start:25-Mar-2021 Instruction Type:Patient Education Patient Instructions Indication:BMI 40.0-44.9, adult Start:11-Mar-2021 Instruction Type:Provider Instructions for Treatment How to Access Health Informa tion Online using Patient Portal and [employer] Apps Indication:BMI 40.0-44.9, adult Start:11-Mar-2021 Instruction Type:Patient Education How to access health informa tion online Indication:Non-smoker Start:21-Feb-2020 Instruction Type:Patient Education How to access health informa tion online - Detail Indication:Non-smoker Start:21-Feb-2020 Instruction Type:Patient Education Patient Instructions Indication:Non-smoker Start:21-Feb-2020 Instruction Type:Provider Instructions for Treatment How to access health informa tion online Indication:Non-smoker Start:18-Dec-2019 Instruction Type:Patient Education How to access health informa tion online - Detail Indication:Non-smoker Start:18-Dec-2019 Instruction Type:Patient Education Patient Instructions Indication:Non-smoker Start:18-Dec-2019 Instruction Type:Provider Instructions for Treatment How to access health informa tion online Indication:Non-smoker Start:27-Nov-2019 Instruction Type:Patient Education How to access health informa tion online - Detail Indication:Non-smoker Start:27-Nov-2019 Instruction Type:Patient Education Patient Instructions Indication:Non-smoker Start:27-Nov-2019 Instruction Type:Provider Instructions for Treatment How to access health informa tion online Indication:Non-smoker Start:30-Aug-2019 Instruction Type:Patient Education How to access health informa tion online - Detail Indication:Non-smoker Start:30-Aug-2019 Instruction Type:Patient Education Patient Instructions Indication:Non-smoker Start:30-Aug-2019 Instruction Type:Provider Instructions for Treatment How to access health informa tion online Indication:Weight gain Start:14-Feb-2019 Instruction Type:Patient Education How to access health informa tion online - Detail Indication:Weight gain Start:14-Feb-2019 Instruction Type:Patient Education Patient Instructions Indication:Weight gain Start:14-Feb-2019 Instruction Type:Provider Instructions for Treatment How to access health informa tion online Indication:BMI 34.0-34.9,adult Start:22-Sep-2018 Instruction Type:Patient Education How to access health informa tion online - Detail Indication:BMI 34.0-34.9,adult Start:22-Sep-2018 Instruction Type:Patient Education Patient Instructions Indication:BMI 34.0-34.9,adult Start:22-Sep-2018 Instruction Type:Provider Instructions for Treatment How to access health informa tion online Indication:Non-smoker Start:06-Sep-2018 Instruction Type:Patient Education How to access health informa tion online - Detail Indication:Non-smoker Start:06-Sep-2018 Instruction Type:Patient Education Patient Instructions Indication:Non-smoker Start:06-Sep-2018 Instruction Type:Provider Instructions for Treatment How to access health informa tion online Indication:BMI 36.0-36.9,adult Start:25-Aug-2018 Instruction Type:Patient Education How to access health informa tion online - Detail Indication:BMI 36.0-36.9,adult Start:25-Aug-2018 Instruction Type:Patient Education Patient Instructions Indication:BMI 36.0-36.9,adult Start:25-Aug-2018 Instruction Type:Provider Instructions for Treatment How to access health informa tion online Indication:BMI 38.0-38.9,adult Start:31-Jul-2018 Instruction Type:Patient Education How to access health informa tion online - Detail Indication:BMI 38.0-38.9,adult Start:31-Jul-2018 Instruction Type:Patient Education Patient Instructions Indication:BMI 38.0-38.9,adult Start:31-Jul-2018 Instruction Type:Provider Instructions for Treatment How to access health informa tion online Indication:Non-smoker Start:23-Jun-2018 Instruction Type:Patient Education How to access health informa tion online - Detail Indication:Non-smoker Start:23-Jun-2018 Instruction Type:Patient Education Patient Instructions Indication:Non-smoker Start:23-Jun-2018 Instruction Type:Provider Instructions for Treatment How to access health informa tion online Indication:Non-smoker Start:16-Jun-2018 Instruction Type:Patient Education How to access health informa tion online - Detail Indication:Non-smoker Start:16-Jun-2018 Instruction Type:Patient Education Patient Instructions Indication:Non-smoker Start:16-Jun-2018 Instruction Type:Provider Instructions for Treatment How to access health informa tion online Indication:Non-smoker Start:08-Nov-2017 Instruction Type:Patient Education How to access health informa tion online - Detail Indication:Non-smoker Start:08-Nov-2017 Instruction Type:Patient Education Patient Instructions Indication:Non-smoker Start:08-Nov-2017 Instruction Type:Provider Instructions for Treatment How to access health informa tion online Indication:BMI 36.0-36.9,adult Start:30-Sep-2017 Instruction Type:Patient Education How to access health informa tion online - Detail Indication:BMI 36.0-36.9,adult Start:30-Sep-2017 Instruction Type:Patient Education Patient Instructions Indication:BMI 36.0-36.9,adult Start:30-Sep-2017 Instruction Type:Provider Instructions for Treatment How to access health informa tion online Indication:BMI 37.0-37.9, adult Start:23-Aug-2017 Instruction Type:Patient Education How to access health informa tion online - Detail Indication:BMI 37.0-37.9, adult Start:23-Aug-2017 Instruction Type:Patient Education Patient Instructions Indication:BMI 37.0-37.9, adult Start:23-Aug-2017 Instruction Type:Provider Instructions for Treatment How to access health informa tion online Indication:BMI 35.0-35.9,adult Start:06-May-2017 Instruction Type:Patient Education How to access health informa tion online - Detail Indication:BMI 35.0-35.9,adult Start:06-May-2017 Instruction Type:Patient Education Patient Instructions Indication:BMI 35.0-35.9,adult Start:06-May-2017 Instruction Type:Provider Instructions for Treatment How to access health informa tion online Indication:BMI 36.0-36.9,adult Start:11-Mar-2017 Instruction Type:Patient Education How to access health informa tion online - Detail Indication:BMI 36.0-36.9,adult Start:11-Mar-2017 Instruction Type:Patient Education Patient Instructions Indication:BMI 36.0-36.9,adult Start:11-Mar-2017 Instruction Type:Provider Instructions for Treatment How to access health informa tion online Indication:Hypertension, essential, benign Start:07-Feb-2017 Instruction Type:Patient Education How to access health informa tion online - Detail Indication:Hypertension, essential, benign Start:07-Feb-2017 Instruction Type:Patient Education Patient Instructions Indication:Hypertension, essential, benign Start:07-Feb-2017 Instruction Type:Provider Instructions for Treatment How to access health informa tion online Indication:Flu-like symptoms Start:02-Jun-2016 Instruction Type:Patient Education How to access health informa tion online - Detail Indication:Flu-like symptoms Start:02-Jun-2016 Instruction Type:Patient Education Patient Instructions Indication:Flu-like symptoms Start:02-Jun-2016 Instruction Type:Provider Instructions for Treatment Patient Instructions Indication:Depression, acute Start:21-May-2016 Instruction Type:Provider Instructions for Treatment Patient Instructions Indication:Depression, acute Start:07-Apr-2016 Instruction Type:Provider Instructions for Treatment How to access health informa tion online Indication:Left upper quadrant abdominal tenderness Start:29-Sep-2015 Instruction Type:Patient Education How to access health informa tion online - Detail Indication:Left upper quadrant abdominal tenderness Start:29-Sep-2015 Instruction Type:Patient Education Patient Instructions Indication:Left upper quadrant abdominal tenderness Start:29-Sep-2015 Instruction Type:Provider Instructions for Treatment How to access health informa tion online Indication:Hypertension, essential, benign Start:01-Nov-2014 Instruction Type:Patient Education How to access health informa tion online - Detail Indication:Hypertension, essential, benign Start:01-Nov-2014 Instruction Type:Patient Education Patient Instructions Indication:Hypertension, essential, benign Start:01-Nov-2014 Instruction Type:Provider Instructions for Treatment Patient Instructions Indication:Hypertension, essential, benign Start:04-Jan-2014 Instruction Type:Provider Instructions for Treatment How to access health informa tion online Indication:Hypertension, essential, benign Start:04-Jan-2014 Instruction Type:Patient Education How to access health informa tion online - Detail Indication:Hypertension, essential, benign Start:04-Jan-2014 Instruction Type:Patient Education obesity counseling Indication:BMI 38.0-38.9,adult Start:20-Dec-2012 Instruction Type:Provider Instructions for Treatment Patient Instructions Indication:Hypertension, essential, benign Start:20-Dec-2012 Instruction Type:Provider Instructions for Treatment Patient Instructions Indication:Obesity Start:24-Feb-2012 Instruction Type:Provider Instructions for Treatment Patient Instructions Indication:Obesity Start:07-Feb-2012 Instruction Type:Provider Instructions for Treatment Patient Instructions Indication:Obesity Start:25-Jan-2012 Instruction Type:Provider Instructions for Treatment Patient Instructionscont eat ing plan and exercise Indication:Obesity Start:13-Jan-2012 Instruction Type:Provider Instructions for Treatment [facility]; [facility] Work Phone: Instructions* Name Dates Details Patient Instructions Indication:Non-smoker Start:21-Jan-2022 Instruction Type:Provider Instructions for Treatment How to Access Health Informa tion Online using Patient Portal and [employer]rd [employer] Apps Indication:Non-smoker Start:21-Jan-2022 Instruction Type:Patient Education Patient Instructions Indication:BMI 36.0-36.9,adult Start:04-Jan-2022 Instruction Type:Provider Instructions for Treatment How to Access Health Informa tion Online using Patient Portal and [employer]rd [employer] Apps Indication:BMI 36.0-36.9,adult Start:04-Jan-2022 Instruction Type:Patient Education Patient Instructions Indication:Non-smoker Start:25-Dec-2021 Instruction Type:Provider Instructions for Treatment How to Access Health Informa tion Online using Patient Portal and [employer]rd [employer] Apps Indication:Non-smoker Start:25-Dec-2021 Instruction Type:Patient Education Patient Instructions Indication:BMI 38.0-38.9,adult Start:20-May-2021 Instruction Type:Provider Instructions for Treatment How to Access Health Informa tion Online using Patient Portal and [employer]rd [employer] Apps Indication:BMI 38.0-38.9,adult Start:20-May-2021 Instruction Type:Patient Education Patient Instructions Indication:BMI 40.0-44.9, adult Start:06-May-2021 Instruction Type:Provider Instructions for Treatment How to Access Health Informa tion Online using Patient Portal and [employer]rd [employer] Apps Indication:BMI 40.0-44.9, adult Start:06-May-2021 Instruction Type:Patient Education Patient Instructions Indication:BMI 40.0-44.9, adult Start:06-Apr-2021 Instruction Type:Provider Instructions for Treatment How to Access Health Informa tion Online using Patient Portal and [employer]rd [employer] Apps Indication:BMI 40.0-44.9, adult Start:06-Apr-2021 Instruction Type:Patient Education Patient Instructions Indication:BMI 40.0-44.9, adult Start:25-Mar-2021 Instruction Type:Provider Instructions for Treatment How to Access Health Informa tion Online using Patient Portal and [employer]rd [employer] Apps Indication:BMI 40.0-44.9, adult Start:25-Mar-2021 Instruction Type:Patient Education Patient Instructions Indication:BMI 40.0-44.9, adult Start:11-Mar-2021 Instruction Type:Provider Instructions for Treatment How to Access Health Informa tion Online using Patient Portal and [employer]rd [employer] Apps Indication:BMI 40.0-44.9, adult Start:11-Mar-2021 Instruction Type:Patient Education How to access health informa tion online Indication:Non-smoker Start:21-Feb-2020 Instruction Type:Patient Education How to access health informa tion online - Detail Indication:Non-smoker Start:21-Feb-2020 Instruction Type:Patient Education Patient Instructions Indication:Non-smoker Start:21-Feb-2020 Instruction Type:Provider Instructions for Treatment How to access health informa tion online Indication:Non-smoker Start:18-Dec-2019 Instruction Type:Patient Education How to access health informa tion online - Detail Indication:Non-smoker Start:18-Dec-2019 Instruction Type:Patient Education Patient Instructions Indication:Non-smoker Start:18-Dec-2019 Instruction Type:Provider Instructions for Treatment How to access health informa tion online Indication:Non-smoker Start:27-Nov-2019 Instruction Type:Patient Education How to access health informa tion online - Detail Indication:Non-smoker Start:27-Nov-2019 Instruction Type:Patient Education Patient Instructions Indication:Non-smoker Start:27-Nov-2019 Instruction Type:Provider Instructions for Treatment How to access health informa tion online Indication:Non-smoker Start:30-Aug-2019 Instruction Type:Patient Education How to access health informa tion online - Detail Indication:Non-smoker Start:30-Aug-2019 Instruction Type:Patient Education Patient Instructions Indication:Non-smoker Start:30-Aug-2019 Instruction Type:Provider Instructions for Treatment How to access health informa tion online Indication:Weight gain Start:14-Feb-2019 Instruction Type:Patient Education How to access health informa tion online - Detail Indication:Weight gain Start:14-Feb-2019 Instruction Type:Patient Education Patient Instructions Indication:Weight gain Start:14-Feb-2019 Instruction Type:Provider Instructions for Treatment How to access health informa tion online Indication:BMI 34.0-34.9,adult Start:22-Sep-2018 Instruction Type:Patient Education How to access health informa tion online - Detail Indication:BMI 34.0-34.9,adult Start:22-Sep-2018 Instruction Type:Patient Education Patient Instructions Indication:BMI 34.0-34.9,adult Start:22-Sep-2018 Instruction Type:Provider Instructions for Treatment How to access health informa tion online Indication:Non-smoker Start:06-Sep-2018 Instruction Type:Patient Education How to access health informa tion online - Detail Indication:Non-smoker Start:06-Sep-2018 Instruction Type:Patient Education Patient Instructions Indication:Non-smoker Start:06-Sep-2018 Instruction Type:Provider Instructions for Treatment How to access health informa tion online Indication:BMI 36.0-36.9,adult Start:25-Aug-2018 Instruction Type:Patient Education How to access health informa tion online - Detail Indication:BMI 36.0-36.9,adult Start:25-Aug-2018 Instruction Type:Patient Education Patient Instructions Indication:BMI 36.0-36.9,adult Start:25-Aug-2018 Instruction Type:Provider Instructions for Treatment How to access health informa tion online Indication:BMI 38.0-38.9,adult Start:31-Jul-2018 Instruction Type:Patient Education How to access health informa tion online - Detail Indication:BMI 38.0-38.9,adult Start:31-Jul-2018 Instruction Type:Patient Education Patient Instructions Indication:BMI 38.0-38.9,adult Start:31-Jul-2018 Instruction Type:Provider Instructions for Treatment How to access health informa tion online Indication:Non-smoker Start:23-Jun-2018 Instruction Type:Patient Education How to access health informa tion online - Detail Indication:Non-smoker Start:23-Jun-2018 Instruction Type:Patient Education Patient Instructions Indication:Non-smoker Start:23-Jun-2018 Instruction Type:Provider Instructions for Treatment How to access health informa tion online Indication:Non-smoker Start:16-Jun-2018 Instruction Type:Patient Education How to access health informa tion online - Detail Indication:Non-smoker Start:16-Jun-2018 Instruction Type:Patient Education Patient Instructions Indication:Non-smoker Start:16-Jun-2018 Instruction Type:Provider Instructions for Treatment How to access health informa tion online Indication:Non-smoker Start:08-Nov-2017 Instruction Type:Patient Education How to access health informa tion online - Detail Indication:Non-smoker Start:08-Nov-2017 Instruction Type:Patient Education Patient Instructions Indication:Non-smoker Start:08-Nov-2017 Instruction Type:Provider Instructions for Treatment How to access health informa tion online Indication:BMI 36.0-36.9,adult Start:30-Sep-2017 Instruction Type:Patient Education How to access health informa tion online - Detail Indication:BMI 36.0-36.9,adult Start:30-Sep-2017 Instruction Type:Patient Education Patient Instructions Indication:BMI 36.0-36.9,adult Start:30-Sep-2017 Instruction Type:Provider Instructions for Treatment How to access health informa tion online Indication:BMI 37.0-37.9, adult Start:23-Aug-2017 Instruction Type:Patient Education How to access health informa tion online - Detail Indication:BMI 37.0-37.9, adult Start:23-Aug-2017 Instruction Type:Patient Education Patient Instructions Indication:BMI 37.0-37.9, adult Start:23-Aug-2017 Instruction Type:Provider Instructions for Treatment How to access health informa tion online Indication:BMI 35.0-35.9,adult Start:06-May-2017 Instruction Type:Patient Education How to access health informa tion online - Detail Indication:BMI 35.0-35.9,adult Start:06-May-2017 Instruction Type:Patient Education Patient Instructions Indication:BMI 35.0-35.9,adult Start:06-May-2017 Instruction Type:Provider Instructions for Treatment How to access health informa tion online Indication:BMI 36.0-36.9,adult Start:11-Mar-2017 Instruction Type:Patient Education How to access health informa tion online - Detail Indication:BMI 36.0-36.9,adult Start:11-Mar-2017 Instruction Type:Patient Education Patient Instructions Indication:BMI 36.0-36.9,adult Start:11-Mar-2017 Instruction Type:Provider Instructions for Treatment How to access health informa tion online Indication:Hypertension, essential, benign Start:07-Feb-2017 Instruction Type:Patient Education How to access health informa tion online - Detail Indication:Hypertension, essential, benign Start:07-Feb-2017 Instruction Type:Patient Education Patient Instructions Indication:Hypertension, essential, benign Start:07-Feb-2017 Instruction Type:Provider Instructions for Treatment How to access health informa tion online Indication:Flu-like symptoms Start:02-Jun-2016 Instruction Type:Patient Education How to access health informa tion online - Detail Indication:Flu-like symptoms Start:02-Jun-2016 Instruction Type:Patient Education Patient Instructions Indication:Flu-like symptoms Start:02-Jun-2016 Instruction Type:Provider Instructions for Treatment Patient Instructions Indication:Depression, acute Start:21-May-2016 Instruction Type:Provider Instructions for Treatment Patient Instructions Indication:Depression, acute Start:07-Apr-2016 Instruction Type:Provider Instructions for Treatment How to access health informa tion online Indication:Left upper quadrant abdominal tenderness Start:29-Sep-2015 Instruction Type:Patient Education How to access health informa tion online - Detail Indication:Left upper quadrant abdominal tenderness Start:29-Sep-2015 Instruction Type:Patient Education Patient Instructions Indication:Left upper quadrant abdominal tenderness Start:29-Sep-2015 Instruction Type:Provider Instructions for Treatment How to access health informa tion online Indication:Hypertension, essential, benign Start:01-Nov-2014 Instruction Type:Patient Education How to access health informa tion online - Detail Indication:Hypertension, essential, benign Start:01-Nov-2014 Instruction Type:Patient Education Patient Instructions Indication:Hypertension, essential, benign Start:01-Nov-2014 Instruction Type:Provider Instructions for Treatment Patient Instructions Indication:Hypertension, essential, benign Start:04-Jan-2014 Instruction Type:Provider Instructions for Treatment How to access health informa tion online Indication:Hypertension, essential, benign Start:04-Jan-2014 Instruction Type:Patient Education How to access health informa tion online - Detail Indication:Hypertension, essential, benign Start:04-Jan-2014 Instruction Type:Patient Education obesity counseling Indication:BMI 38.0-38.9,adult Start:20-Dec-2012 Instruction Type:Provider Instructions for Treatment Patient Instructions Indication:Hypertension, essential, benign Start:20-Dec-2012 Instruction Type:Provider Instructions for Treatment Patient Instructions Indication:Obesity Start:24-Feb-2012 Instruction Type:Provider Instructions for Treatment Patient Instructions Indication:Obesity Start:07-Feb-2012 Instruction Type:Provider Instructions for Treatment Patient Instructions Indication:Obesity Start:25-Jan-2012 Instruction Type:Provider Instructions for Treatment Patient Instructionscont eat ing plan and exercise Indication:Obesity Start:13-Jan-2012 Instruction Type:Provider Instructions for Treatment [facility]; [facility] Work Phone: Instructions* Name Dates Details Patient Instructions Indication:Non-smoker Start:21-Jan-2022 Instruction Type:Provider Instructions for Treatment How to Access Health Informa tion Online using Patient Portal and [employer]rd [employer] Apps Indication:Non-smoker Start:21-Jan-2022 Instruction Type:Patient Education Patient Instructions Indication:BMI 36.0-36.9,adult Start:04-Jan-2022 Instruction Type:Provider Instructions for Treatment How to Access Health Informa tion Online using Patient Portal and [employer]rd [employer] Apps Indication:BMI 36.0-36.9,adult Start:04-Jan-2022 Instruction Type:Patient Education Patient Instructions Indication:Non-smoker Start:25-Dec-2021 Instruction Type:Provider Instructions for Treatment How to Access Health Informa tion Online using Patient Portal and [employer]rd [employer] Apps Indication:Non-smoker Start:25-Dec-2021 Instruction Type:Patient Education Patient Instructions Indication:BMI 38.0-38.9,adult Start:20-May-2021 Instruction Type:Provider Instructions for Treatment How to Access Health Informa tion Online using Patient Portal and [employer]rd [employer] Apps Indication:BMI 38.0-38.9,adult Start:20-May-2021 Instruction Type:Patient Education Patient Instructions Indication:BMI 40.0-44.9, adult Start:06-May-2021 Instruction Type:Provider Instructions for Treatment How to Access Health Informa tion Online using Patient Portal and [employer]rd [employer] Apps Indication:BMI 40.0-44.9, adult Start:06-May-2021 Instruction Type:Patient Education Patient Instructions Indication:BMI 40.0-44.9, adult Start:06-Apr-2021 Instruction Type:Provider Instructions for Treatment How to Access Health Informa tion Online using Patient Portal and [employer]rd [employer] Apps Indication:BMI 40.0-44.9, adult Start:06-Apr-2021 Instruction Type:Patient Education Patient Instructions Indication:BMI 40.0-44.9, adult Start:25-Mar-2021 Instruction Type:Provider Instructions for Treatment How to Access Health Informa tion Online using Patient Portal and [employer]rd [employer] Apps Indication:BMI 40.0-44.9, adult Start:25-Mar-2021 Instruction Type:Patient Education Patient Instructions Indication:BMI 40.0-44.9, adult Start:11-Mar-2021 Instruction Type:Provider Instructions for Treatment How to Access Health Informa tion Online using Patient Portal and [employer]rd [employer] Apps Indication:BMI 40.0-44.9, adult Start:11-Mar-2021 Instruction Type:Patient Education How to access health informa tion online Indication:Non-smoker Start:21-Feb-2020 Instruction Type:Patient Education How to access health informa tion online - Detail Indication:Non-smoker Start:21-Feb-2020 Instruction Type:Patient Education Patient Instructions Indication:Non-smoker Start:21-Feb-2020 Instruction Type:Provider Instructions for Treatment How to access health informa tion online Indication:Non-smoker Start:18-Dec-2019 Instruction Type:Patient Education How to access health informa tion online - Detail Indication:Non-smoker Start:18-Dec-2019 Instruction Type:Patient Education Patient Instructions Indication:Non-smoker Start:18-Dec-2019 Instruction Type:Provider Instructions for Treatment How to access health informa tion online Indication:Non-smoker Start:27-Nov-2019 Instruction Type:Patient Education How to access health informa tion online - Detail Indication:Non-smoker Start:27-Nov-2019 Instruction Type:Patient Education Patient Instructions Indication:Non-smoker Start:27-Nov-2019 Instruction Type:Provider Instructions for Treatment How to access health informa tion online Indication:Non-smoker Start:30-Aug-2019 Instruction Type:Patient Education How to access health informa tion online - Detail Indication:Non-smoker Start:30-Aug-2019 Instruction Type:Patient Education Patient Instructions Indication:Non-smoker Start:30-Aug-2019 Instruction Type:Provider Instructions for Treatment How to access health informa tion online Indication:Weight gain Start:14-Feb-2019 Instruction Type:Patient Education How to access health informa tion online - Detail Indication:Weight gain Start:14-Feb-2019 Instruction Type:Patient Education Patient Instructions Indication:Weight gain Start:14-Feb-2019 Instruction Type:Provider Instructions for Treatment How to access health informa tion online Indication:BMI 34.0-34.9,adult Start:22-Sep-2018 Instruction Type:Patient Education How to access health informa tion online - Detail Indication:BMI 34.0-34.9,adult Start:22-Sep-2018 Instruction Type:Patient Education Patient Instructions Indication:BMI 34.0-34.9,adult Start:22-Sep-2018 Instruction Type:Provider Instructions for Treatment How to access health informa tion online Indication:Non-smoker Start:06-Sep-2018 Instruction Type:Patient Education How to access health informa tion online - Detail Indication:Non-smoker Start:06-Sep-2018 Instruction Type:Patient Education Patient Instructions Indication:Non-smoker Start:06-Sep-2018 Instruction Type:Provider Instructions for Treatment How to access health informa tion online Indication:BMI 36.0-36.9,adult Start:25-Aug-2018 Instruction Type:Patient Education How to access health informa tion online - Detail Indication:BMI 36.0-36.9,adult Start:25-Aug-2018 Instruction Type:Patient Education Patient Instructions Indication:BMI 36.0-36.9,adult Start:25-Aug-2018 Instruction Type:Provider Instructions for Treatment How to access health informa tion online Indication:BMI 38.0-38.9,adult Start:31-Jul-2018 Instruction Type:Patient Education How to access health informa tion online - Detail Indication:BMI 38.0-38.9,adult Start:31-Jul-2018 Instruction Type:Patient Education Patient Instructions Indication:BMI 38.0-38.9,adult Start:31-Jul-2018 Instruction Type:Provider Instructions for Treatment How to access health informa tion online Indication:Non-smoker Start:23-Jun-2018 Instruction Type:Patient Education How to access health informa tion online - Detail Indication:Non-smoker Start:23-Jun-2018 Instruction Type:Patient Education Patient Instructions Indication:Non-smoker Start:23-Jun-2018 Instruction Type:Provider Instructions for Treatment How to access health informa tion online Indication:Non-smoker Start:16-Jun-2018 Instruction Type:Patient Education How to access health informa tion online - Detail Indication:Non-smoker Start:16-Jun-2018 Instruction Type:Patient Education Patient Instructions Indication:Non-smoker Start:16-Jun-2018 Instruction Type:Provider Instructions for Treatment How to access health informa tion online Indication:Non-smoker Start:08-Nov-2017 Instruction Type:Patient Education How to access health informa tion online - Detail Indication:Non-smoker Start:08-Nov-2017 Instruction Type:Patient Education Patient Instructions Indication:Non-smoker Start:08-Nov-2017 Instruction Type:Provider Instructions for Treatment How to access health informa tion online Indication:BMI 36.0-36.9,adult Start:30-Sep-2017 Instruction Type:Patient Education How to access health informa tion online - Detail Indication:BMI 36.0-36.9,adult Start:30-Sep-2017 Instruction Type:Patient Education Patient Instructions Indication:BMI 36.0-36.9,adult Start:30-Sep-2017 Instruction Type:Provider Instructions for Treatment How to access health informa tion online Indication:BMI 37.0-37.9, adult Start:23-Aug-2017 Instruction Type:Patient Education How to access health informa tion online - Detail Indication:BMI 37.0-37.9, adult Start:23-Aug-2017 Instruction Type:Patient Education Patient Instructions Indication:BMI 37.0-37.9, adult Start:23-Aug-2017 Instruction Type:Provider Instructions for Treatment How to access health informa tion online Indication:BMI 35.0-35.9,adult Start:06-May-2017 Instruction Type:Patient Education How to access health informa tion online - Detail Indication:BMI 35.0-35.9,adult Start:06-May-2017 Instruction Type:Patient Education Patient Instructions Indication:BMI 35.0-35.9,adult Start:06-May-2017 Instruction Type:Provider Instructions for Treatment How to access health informa tion online Indication:BMI 36.0-36.9,adult Start:11-Mar-2017 Instruction Type:Patient Education How to access health informa tion online - Detail Indication:BMI 36.0-36.9,adult Start:11-Mar-2017 Instruction Type:Patient Education Patient Instructions Indication:BMI 36.0-36.9,adult Start:11-Mar-2017 Instruction Type:Provider Instructions for Treatment How to access health informa tion online Indication:Hypertension, essential, benign Start:07-Feb-2017 Instruction Type:Patient Education How to access health informa tion online - Detail Indication:Hypertension, essential, benign Start:07-Feb-2017 Instruction Type:Patient Education Patient Instructions Indication:Hypertension, essential, benign Start:07-Feb-2017 Instruction Type:Provider Instructions for Treatment How to access health informa tion online Indication:Flu-like symptoms Start:02-Jun-2016 Instruction Type:Patient Education How to access health informa tion online - Detail Indication:Flu-like symptoms Start:02-Jun-2016 Instruction Type:Patient Education Patient Instructions Indication:Flu-like symptoms Start:02-Jun-2016 Instruction Type:Provider Instructions for Treatment Patient Instructions Indication:Depression, acute Start:21-May-2016 Instruction Type:Provider Instructions for Treatment Patient Instructions Indication:Depression, acute Start:07-Apr-2016 Instruction Type:Provider Instructions for Treatment How to access health informa tion online Indication:Left upper quadrant abdominal tenderness Start:29-Sep-2015 Instruction Type:Patient Education How to access health informa tion online - Detail Indication:Left upper quadrant abdominal tenderness Start:29-Sep-2015 Instruction Type:Patient Education Patient Instructions Indication:Left upper quadrant abdominal tenderness Start:29-Sep-2015 Instruction Type:Provider Instructions for Treatment How to access health informa tion online Indication:Hypertension, essential, benign Start:01-Nov-2014 Instruction Type:Patient Education How to access health informa tion online - Detail Indication:Hypertension, essential, benign Start:01-Nov-2014 Instruction Type:Patient Education Patient Instructions Indication:Hypertension, essential, benign Start:01-Nov-2014 Instruction Type:Provider Instructions for Treatment Patient Instructions Indication:Hypertension, essential, benign Start:04-Jan-2014 Instruction Type:Provider Instructions for Treatment How to access health informa tion online Indication:Hypertension, essential, benign Start:04-Jan-2014 Instruction Type:Patient Education How to access health informa tion online - Detail Indication:Hypertension, essential, benign Start:04-Jan-2014 Instruction Type:Patient Education obesity counseling Indication:BMI 38.0-38.9,adult Start:20-Dec-2012 Instruction Type:Provider Instructions for Treatment Patient Instructions Indication:Hypertension, essential, benign Start:20-Dec-2012 Instruction Type:Provider Instructions for Treatment Patient Instructions Indication:Obesity Start:24-Feb-2012 Instruction Type:Provider Instructions for Treatment Patient Instructions Indication:Obesity Start:07-Feb-2012 Instruction Type:Provider Instructions for Treatment Patient Instructions Indication:Obesity Start:25-Jan-2012 Instruction Type:Provider Instructions for Treatment Patient Instructionscont eat ing plan and exercise Indication:Obesity Start:13-Jan-2012 Instruction Type:Provider Instructions for Treatment [facility] Work Phone: Instructions* Name Dates Details Patient Instructions Indication:BMI 36.0-36.9,adult Start:17-Feb-2023 Instruction Type:Provider Instructions for Treatment How to Access Health Informa tion Online using Patient Portal and 3rd [employer] Apps Indication:BMI 36.0-36.9,adult Start:17-Feb-2023 Instruction Type:Patient Education Patient Instructions Indication:Non-smoker Start:21-Jan-2022 Instruction Type:Provider Instructions for Treatment How to Access Health Informa tion Online using Patient Portal and [employer]rd [employer] Apps Indication:Non-smoker Start:21-Jan-2022 Instruction Type:Patient Education Patient Instructions Indication:BMI 36.0-36.9,adult Start:04-Jan-2022 Instruction Type:Provider Instructions for Treatment How to Access Health Informa tion Online using Patient Portal and [employer]rd [employer] Apps Indication:BMI 36.0-36.9,adult Start:04-Jan-2022 Instruction Type:Patient Education Patient Instructions Indication:Non-smoker Start:12-Aug-2022 Instruction Type:Provider Instructions for Treatment How to Access Health Informa tion Online using Patient Portal and [employer]rd [employer] Apps Indication:Non-smoker Start:25-Dec-2021 Instruction Type:Patient Education Patient Instructions Indication:BMI 38.0-38.9,adult Start:20-May-2021 Instruction Type:Provider Instructions for Treatment How to Access Health Informa tion Online using Patient Portal and [employer]rd [employer] Apps Indication:BMI 38.0-38.9,adult Start:20-May-2021 Instruction Type:Patient Education Patient Instructions Indication:BMI 40.0-44.9, adult Start:06-May-2021 Instruction Type:Provider Instructions for Treatment How to Access Health Informa tion Online using Patient Portal and [employer]rd [employer] Apps Indication:BMI 40.0-44.9, adult Start:06-May-2021 Instruction Type:Patient Education Patient Instructions Indication:BMI 40.0-44.9, adult Start:06-Apr-2021 Instruction Type:Provider Instructions for Treatment How to Access Health Informa tion Online using Patient Portal and [employer]rd [employer] Apps Indication:BMI 40.0-44.9, adult Start:06-Apr-2021 Instruction Type:Patient Education Patient Instructions Indication:BMI 40.0-44.9, adult Start:25-Mar-2021 Instruction Type:Provider Instructions for Treatment How to Access Health Informa tion Online using Patient Portal and [employer]rd [employer] Apps Indication:BMI 40.0-44.9, adult Start:25-Mar-2021 Instruction Type:Patient Education Patient Instructions Indication:BMI 40.0-44.9, adult Start:11-Mar-2021 Instruction Type:Provider Instructions for Treatment How to Access Health Informa tion Online using Patient Portal and [employer]rd [employer] Apps Indication:BMI 40.0-44.9, adult Start:11-Mar-2021 Instruction Type:Patient Education How to access health informa tion online Indication:Non-smoker Start:21-Feb-2020 Instruction Type:Patient Education How to access health informa tion online - Detail Indication:Non-smoker Start:21-Feb-2020 Instruction Type:Patient Education Patient Instructions Indication:Non-smoker Start:21-Feb-2020 Instruction Type:Provider Instructions for Treatment How to access health informa tion online Indication:Non-smoker Start:18-Dec-2019 Instruction Type:Patient Education How to access health informa tion online - Detail Indication:Non-smoker Start:18-Dec-2019 Instruction Type:Patient Education Patient Instructions Indication:Non-smoker Start:18-Dec-2019 Instruction Type:Provider Instructions for Treatment How to access health informa tion online Indication:Non-smoker Start:27-Nov-2019 Instruction Type:Patient Education How to access health informa tion online - Detail Indication:Non-smoker Start:27-Nov-2019 Instruction Type:Patient Education Patient Instructions Indication:Non-smoker Start:27-Nov-2019 Instruction Type:Provider Instructions for Treatment How to access health informa tion online Indication:Non-smoker Start:30-Aug-2019 Instruction Type:Patient Education How to access health informa tion online - Detail Indication:Non-smoker Start:30-Aug-2019 Instruction Type:Patient Education Patient Instructions Indication:Non-smoker Start:30-Aug-2019 Instruction Type:Provider Instructions for Treatment How to access health informa tion online Indication:Weight gain Start:14-Feb-2019 Instruction Type:Patient Education How to access health informa tion online - Detail Indication:Weight gain Start:14-Feb-2019 Instruction Type:Patient Education Patient Instructions Indication:Weight gain Start:14-Feb-2019 Instruction Type:Provider Instructions for Treatment How to access health informa tion online Indication:BMI 34.0-34.9,adult Start:22-Sep-2018 Instruction Type:Patient Education How to access health informa tion online - Detail Indication:BMI 34.0-34.9,adult Start:22-Sep-2018 Instruction Type:Patient Education Patient Instructions Indication:BMI 34.0-34.9,adult Start:22-Sep-2018 Instruction Type:Provider Instructions for Treatment How to access health informa tion online Indication:Non-smoker Start:06-Sep-2018 Instruction Type:Patient Education How to access health informa tion online - Detail Indication:Non-smoker Start:06-Sep-2018 Instruction Type:Patient Education Patient Instructions Indication:Non-smoker Start:06-Sep-2018 Instruction Type:Provider Instructions for Treatment How to access health informa tion online Indication:BMI 36.0-36.9,adult Start:25-Aug-2018 Instruction Type:Patient Education How to access health informa tion online - Detail Indication:BMI 36.0-36.9,adult Start:25-Aug-2018 Instruction Type:Patient Education Patient Instructions Indication:BMI 36.0-36.9,adult Start:25-Aug-2018 Instruction Type:Provider Instructions for Treatment How to access health informa tion online Indication:BMI 38.0-38.9,adult Start:31-Jul-2018 Instruction Type:Patient Education How to access health informa tion online - Detail Indication:BMI 38.0-38.9,adult Start:31-Jul-2018 Instruction Type:Patient Education Patient Instructions Indication:BMI 38.0-38.9,adult Start:31-Jul-2018 Instruction Type:Provider Instructions for Treatment How to access health informa tion online Indication:Non-smoker Start:23-Jun-2018 Instruction Type:Patient Education How to access health informa tion online - Detail Indication:Non-smoker Start:23-Jun-2018 Instruction Type:Patient Education Patient Instructions Indication:Non-smoker Start:23-Jun-2018 Instruction Type:Provider Instructions for Treatment How to access health informa tion online Indication:Non-smoker Start:16-Jun-2018 Instruction Type:Patient Education How to access health informa tion online - Detail Indication:Non-smoker Start:16-Jun-2018 Instruction Type:Patient Education Patient Instructions Indication:Non-smoker Start:16-Jun-2018 Instruction Type:Provider Instructions for Treatment How to access health informa tion online Indication:Non-smoker Start:08-Nov-2017 Instruction Type:Patient Education How to access health informa tion online - Detail Indication:Non-smoker Start:08-Nov-2017 Instruction Type:Patient Education Patient Instructions Indication:Non-smoker Start:08-Nov-2017 Instruction Type:Provider Instructions for Treatment How to access health informa tion online Indication:BMI 36.0-36.9,adult Start:30-Sep-2017 Instruction Type:Patient Education How to access health informa tion online - Detail Indication:BMI 36.0-36.9,adult Start:30-Sep-2017 Instruction Type:Patient Education Patient Instructions Indication:BMI 36.0-36.9,adult Start:30-Sep-2017 Instruction Type:Provider Instructions for Treatment How to access health informa tion online Indication:BMI 37.0-37.9, adult Start:23-Aug-2017 Instruction Type:Patient Education How to access health informa tion online - Detail Indication:BMI 37.0-37.9, adult Start:23-Aug-2017 Instruction Type:Patient Education Patient Instructions Indication:BMI 37.0-37.9, adult Start:23-Aug-2017 Instruction Type:Provider Instructions for Treatment How to access health informa tion online Indication:BMI 35.0-35.9,adult Start:06-May-2017 Instruction Type:Patient Education How to access health informa tion online - Detail Indication:BMI 35.0-35.9,adult Start:06-May-2017 Instruction Type:Patient Education Patient Instructions Indication:BMI 35.0-35.9,adult Start:06-May-2017 Instruction Type:Provider Instructions for Treatment How to access health informa tion online Indication:BMI 36.0-36.9,adult Start:11-Mar-2017 Instruction Type:Patient Education How to access health informa tion online - Detail Indication:BMI 36.0-36.9,adult Start:11-Mar-2017 Instruction Type:Patient Education Patient Instructions Indication:BMI 36.0-36.9,adult Start:11-Mar-2017 Instruction Type:Provider Instructions for Treatment How to access health informa tion online Indication:Hypertension, essential, benign Start:07-Feb-2017 Instruction Type:Patient Education How to access health informa tion online - Detail Indication:Hypertension, essential, benign Start:07-Feb-2017 Instruction Type:Patient Education Patient Instructions Indication:Hypertension, essential, benign Start:07-Feb-2017 Instruction Type:Provider Instructions for Treatment How to access health informa tion online Indication:Flu-like symptoms Start:02-Jun-2016 Instruction Type:Patient Education How to access health informa tion online - Detail Indication:Flu-like symptoms Start:02-Jun-2016 Instruction Type:Patient Education Patient Instructions Indication:Flu-like symptoms Start:02-Jun-2016 Instruction Type:Provider Instructions for Treatment Patient Instructions Indication:Depression, acute Start:21-May-2016 Instruction Type:Provider Instructions for Treatment Patient Instructions Indication:Depression, acute Start:07-Apr-2016 Instruction Type:Provider Instructions for Treatment How to access health informa tion online Indication:Left upper quadrant abdominal tenderness Start:29-Sep-2015 Instruction Type:Patient Education How to access health informa tion online - Detail Indication:Left upper quadrant abdominal tenderness Start:29-Sep-2015 Instruction Type:Patient Education Patient Instructions Indication:Left upper quadrant abdominal tenderness Start:29-Sep-2015 Instruction Type:Provider Instructions for Treatment How to access health informa tion online Indication:Hypertension, essential, benign Start:01-Nov-2014 Instruction Type:Patient Education How to access health informa tion online - Detail Indication:Hypertension, essential, benign Start:01-Nov-2014 Instruction Type:Patient Education Patient Instructions Indication:Hypertension, essential, benign Start:01-Nov-2014 Instruction Type:Provider Instructions for Treatment Patient Instructions Indication:Hypertension, essential, benign Start:04-Jan-2014 Instruction Type:Provider Instructions for Treatment How to access health informa tion online Indication:Hypertension, essential, benign Start:04-Jan-2014 Instruction Type:Patient Education How to access health informa tion online - Detail Indication:Hypertension, essential, benign Start:04-Jan-2014 Instruction Type:Patient Education obesity counseling Indication:BMI 38.0-38.9,adult Start:20-Dec-2012 Instruction Type:Provider Instructions for Treatment Patient Instructions Indication:Hypertension, essential, benign Start:20-Dec-2012 Instruction Type:Provider Instructions for Treatment Patient Instructions Indication:Obesity Start:24-Feb-2012 Instruction Type:Provider Instructions for Treatment Patient Instructions Indication:Obesity Start:07-Feb-2012 Instruction Type:Provider Instructions for Treatment Patient Instructions Indication:Obesity Start:25-Jan-2012 Instruction Type:Provider Instructions for Treatment Patient Instructionscont eat ing plan and exercise Indication:Obesity Start:13-Jan-2012 Instruction Type:Provider Instructions for Treatment [facility]; [facility] Work Phone: reason for referral (narrative)* Consultation (Routine) - Authorized Specialty Diagnoses / Procedures Referred By Marisela lacey Referred To Contact Primary Care Procedures Follow Up In Primary Care - Health Maintenance Maribell Lucio APRN-CNP [address] [facility], [place] [address] Referral ID Status Reason Start Date Expiration Date V isits Requested Visits Authorized [id number] Authorized 12/28/2022 06/26/2023 1 1 * Imaging (Routine) - Authorized Specialty Diagnoses / Procedures Referred By Marisela lacey Referred To Contact Radiology Diagnoses Chest injury, initial encounter Rib pain Contusion of both lungs, initial encounter Procedures CT chest wo IV contrast Maribell Lucio APRN-CNP [address] [facility], [facility] [address] [place] [address] Referral ID Status Reason Start Date Expiration Date Visits Requested Visits Authorized [id number] Authorized Perform Procedure 12/28/2022 06/26/2023 1 1 [facility] Work Phone: reason for referral (narrative)* Consultation (Routine) - Authorized Specialty Diagnoses / Procedures Referred By Marisela t Referred To Contact Primary Care Procedures Follow Up In Primary Care - Health Maintenance Maribell Lucio APRN-CNP [address] [facility], [facility] [address] [place] [address] Referral ID Status Reason Start Date Expiration Date V isits Requested Visits Authorized [id number] Authorized 01/28/2023 07/27/2023 1 1 [facility] Work Phone: Rekvsg for referral (narrative)* Diagnostic Procedure Only (Routine) - Denied Specialty Diagnoses / Procedures Referred By Contac t Referred To Contact [facility] Diagnoses Abnormal finding on breast imaging Procedures GREG SCREENING W MASTER SCREENING DIGITAL BREAST TOMOSYNTHESIS BI SCREENING MAMMOGRAPHY BI 2-VIEW BREAST INC CAD River La MD [address] [place] [address] [facility] [address] [place] [address] Referral ID Status Reason Start Date Expiration Date Visits Requested Visits Authorized [id number] Denied Auto-Generated Referral OON Notification Letter 4 06/06/2025 1 0 * Diagnostic Procedure Only (Routine) - Denied Specialty Diagnoses / Procedures Referred By Contac t Referred To Contact [facility] Diagnoses Abnormal finding on breast imaging Procedures US BREAST LTD LEFT US BREAST UNI REAL TIME WITH IMAGE LIMITED River La MD [address] [facility] [place] [address] [facility] [address] [place] [address] Referral ID Status Reason Start Date Expiration Date Visits Requested Visits Authorized [id number] Denied Auto-Generated Referral OON Notification Letter 4 06/06/2025 1 0 [facility] for referral (narrative)No reason for referral information [facility] Work Phone: Family History No Family History Records FoundUnknown Family Member Name Dates Details Father Comments: at 95, MVA Status:Active Maternal Grandmother Comments:Ovarian CA & breast CA Status:Active Mother Comments:DIabetes & HTN Status:Active Unknown Family Member Name Dates Details Father Comments: at 95, MVA Status:Active Maternal Grandmother Comments:Ovarian CA & breast CA Status:Active Mother Comments:DIabetes & HTN Status:Active Unknown Family Member Name Dates Details Father Comments: at 95, MVA Status:Active Maternal Grandmother Comments:Ovarian CA & breast CA Status:Active Mother Comments:DIabetes & HTN Status:Active Unknown Family Member Name Dates Details Father Comments: at 95, MVA Status:Active Maternal Grandmother Comments:Ovarian CA & breast CA Status:Active Mother Comments:DIabetes & HTN Status:Active Unknown Family Member Name Dates Details Father Comments: at 95, MVA Status:Active Maternal Grandmother Comments:Ovarian CA & breast CA Status:Active Mother Comments:DIabetes & HTN Status:Active Unknown Family Member Name Dates Details Father Comments: at 95, MVA Status:Active Maternal Grandmother Comments:Ovarian CA & breast CA Status:Active Mother Comments:DIabetes & HTN Status:Active Unknown Family Member Name Dates Details Father Comments: at 95, MVA Status:Active Maternal Grandmother Comments:Ovarian CA & breast CA Status:Active Mother Comments:DIabetes & HTN Status:Active Unknown Family Member Name Dates Details Father Comments: at 95, MVA Status:Active Maternal Grandmother Comments:Ovarian CA & breast CA Status:Active Mother Comments:DIabetes & HTN Status:Active Unknown Family Member Name Dates Details Father Comments: at 95, MVA Status:Active Maternal Grandmother Comments:Ovarian CA & breast CA Status:Active Mother Comments:DIabetes & HTN Status:Active Unknown Family Member Name Dates Details Father Comments: at 95, MVA Status:Active Maternal Grandmother Comments:Ovarian CA & breast CA Status:Active Mother Comments:DIabetes & HTN Status:Active Unknown Family Member Name Dates Details Father Comments: at 95, MVA Status:Active Maternal Grandmother Comments:Ovarian CA & breast CA Status:Active Mother Comments:DIabetes & HTN Status:Active Unknown Family Member Name Dates Details Father Comments: at 95, MVA Status:Active Maternal Grandmother Comments:Ovarian CA & breast CA Status:Active Mother Comments:DIabetes & HTN Status:Active Unknown Family Member Name Dates Details Father Comments: at 95, MVA Status:Active Maternal Grandmother Comments:Ovarian CA & breast CA Status:Active Mother Comments:DIabetes & HTN Status:Active Unknown Family Member Name Dates Details Father Comments: at 95, MVA Status:Active Maternal Grandmother Comments:Ovarian CA & breast CA Status:Active Mother Comments:DIabetes & HTN Status:Active Unknown Family Member Name Dates Details Father Comments: at 95, MVA Status:Active Maternal Grandmother Comments:Ovarian CA & breast CA Status:Active Mother Comments:DIabetes & HTN Status:Active Unknown Family Member Name Dates Details Father Comments: at 95, MVA Status:Active Maternal Grandmother Comments:Ovarian CA & breast CA Status:Active Mother Comments:DIabetes & HTN Status:Active Unknown Family Member Name Dates Details Father Comments: at 95, MVA Status:Active Maternal Grandmother Comments:Ovarian CA & breast CA Status:Active Mother Comments:DIabetes & HTN Status:Active Unknown Family Member Name Dates Details Father Comments: at 95, MVA Status:Active Maternal Grandmother Comments:Ovarian CA & breast CA Status:Active Mother Comments:DIabetes & HTN Status:Active Unknown Family Member Name Dates Details Father Comments: at 95, MVA Status:Active Maternal Grandmother Comments:Ovarian CA & breast CA Status:Active Mother Comments:DIabetes & HTN Status:Active Unknown Family Member Name Dates Details Father Comments: at 95, MVA Status:Active Maternal Grandmother Comments:Ovarian CA & breast CA Status:Active Mother Comments:DIabetes & HTN Status:Active Unknown Family Member Name Dates Details Father Comments: at 95, MVA Status:Active Maternal Grandmother Comments:Ovarian CA & breast CA Status:Active Mother Comments:DIabetes & HTN Status:Active Unknown Family Member Name Dates Details Father Comments: at 95, MVA Status:Active Maternal Grandmother Comments:Ovarian CA & breast CA Status:Active Mother Comments:DIabetes & HTN Status:Active Unknown Family Member Name Dates Details Father Comments: at 95, MVA Status:Active Maternal Grandmother Comments:Ovarian CA & breast CA Status:Active Mother Comments:DIabetes & HTN Status:Active Unknown Family Member Name Dates Details Father Comments: at 95, MVA Status:Active Maternal Grandmother Comments:Ovarian CA & breast CA Status:Active Mother Comments:DIabetes & HTN Status:Active Unknown Family Member Name Dates Details Father Comments: at 95, MVA Status:Active Maternal Grandmother Comments:Ovarian CA & breast CA Status:Active Mother Comments:DIabetes & HTN Status:Active Unknown Family Member Name Dates Details Father Comments: at 95, MVA Status:Active Maternal Grandmother Comments:Ovarian CA & breast CA Status:Active Mother Comments:DIabetes & HTN Status:Active Unknown Family Member Name Dates Details Father Comments: at 95, MVA Status:Active Maternal Grandmother Comments:Ovarian CA & breast CA Status:Active Mother Comments:DIabetes & HTN Status:Active Unknown Family Member Name Dates Details Father Comments: at 95, MVA Status:Active Maternal Grandmother Comments:Ovarian CA & breast CA Status:Active Mother Comments:DIabetes & HTN Status:Active Unknown Family Member Name Dates Details Father Comments: at 95, MVA Status:Active Maternal Grandmother Comments:Ovarian CA & breast CA Status:Active Mother Comments:DIabetes & HTN Status:Active Unknown Family Member Name Dates Details Father Comments: at 95, MVA Status:Active Maternal Grandmother Comments:Ovarian CA & breast CA Status:Active Mother Comments:DIabetes & HTN Status:Active Unknown Family Member Name Dates Details Father Comments: at 95, MVA Status:Active Maternal Grandmother Comments:Ovarian CA & breast CA Status:Active Mother Comments:DIabetes & HTN Status:Active Unknown Family Member Name Dates Details Father Comments: at 95, MVA Status:Active Maternal Grandmother Comments:Ovarian CA & breast CA Status:Active Mother Comments:DIabetes & HTN Status:Active Relationship Condition Age at Onset Recorded Date/T nadine Not Specified Malignant neoplasm of colon Unknown Diabetes mellitus Unknown High blood cholesterol Unknown Arthritis Unknown Malignant neoplasm Unknown Hypertension Unknown Instructions Name Dates Details Non-smoker : How to access h ealth information online Indication:Non-smoker Non-smoker : How to access h ealth information online - Detail Indication:Non-smoker Non-smoker : Patient Instruc tions Indication:Non-smoker BMI 36.0-36.9,adult : How to access health information online Indication:BMI 36.0-36.9,adult BMI 36.0-36.9,adult : How to access health information online - Detail Indication:BMI 36.0-36.9,adult BMI 36.0-36.9,adult : Patien t Instructions Indication:BMI 36.0-36.9,adult BMI 37.0-37.9, adult : How t o access health information online Indication:BMI 37.0-37.9, adult BMI 37.0-37.9, adult : How t o access health information online - Detail Indication:BMI 37.0-37.9, adult BMI 37.0-37.9, adult : Patie nt Instructions Indication:BMI 37.0-37.9, adult BMI 35.0-35.9,adult : How to access health information online Indication:BMI 35.0-35.9,adult BMI 35.0-35.9,adult : How to access health information online - Detail Indication:BMI 35.0-35.9,adult BMI 35.0-35.9,adult : Patien t Instructions Indication:BMI 35.0-35.9,adult Hypertension, essential, elise ign : How to access health information online Indication:Hypertension, essential, benign Hypertension, essential, elise ign : How to access health information online - Detail Indication:Hypertension, essential, benign Hypertension, essential, elise ign : Patient Instructions Indication:Hypertension, essential, benign Flu-like symptoms : How to a ccess health information online Indication:Flu-like symptoms Flu-like symptoms : How to a ccess health information online - Detail Indication:Flu-like symptoms Flu-like symptoms : Patient Instructions Indication:Flu-like symptoms Depression, acute : Patient Instructions Indication:Depression, acute Left upper quadrant abdomina l tenderness : How to access health information online Indication:Left upper quadrant abdominal tenderness Left upper quadrant abdomina l tenderness : How to access health information online - Detail Indication:Left upper quadrant abdominal tenderness Left upper quadrant abdomina l tenderness : Patient Instructions Indication:Left upper quadrant abdominal tenderness BMI 38.0-38.9,adult : obesit y counseling Indication:BMI 38.0-38.9,adult Obesity : Patient Instructio ns Indication:Obesity Obesity : Patient Instructio nscont eating plan and exercise Indication:Obesity Name Dates Details Non-smoker : How to access h ealth information online Indication:Non-smoker Non-smoker : How to access h ealth information online - Detail Indication:Non-smoker Non-smoker : Patient Instruc tions Indication:Non-smoker BMI 36.0-36.9,adult : How to access health information online Indication:BMI 36.0-36.9,adult BMI 36.0-36.9,adult : How to access health information online - Detail Indication:BMI 36.0-36.9,adult BMI 36.0-36.9,adult : Patien t Instructions Indication:BMI 36.0-36.9,adult BMI 37.0-37.9, adult : How t o access health information online Indication:BMI 37.0-37.9, adult BMI 37.0-37.9, adult : How t o access health information online - Detail Indication:BMI 37.0-37.9, adult BMI 37.0-37.9, adult : Patie nt Instructions Indication:BMI 37.0-37.9, adult BMI 35.0-35.9,adult : How to access health information online Indication:BMI 35.0-35.9,adult BMI 35.0-35.9,adult : How to access health information online - Detail Indication:BMI 35.0-35.9,adult BMI 35.0-35.9,adult : Patien t Instructions Indication:BMI 35.0-35.9,adult Hypertension, essential, elise ign : How to access health information online Indication:Hypertension, essential, benign Hypertension, essential, elise ign : How to access health information online - Detail Indication:Hypertension, essential, benign Hypertension, essential, elise ign : Patient Instructions Indication:Hypertension, essential, benign Flu-like symptoms : How to a ccess health information online Indication:Flu-like symptoms Flu-like symptoms : How to a ccess health information online - Detail Indication:Flu-like symptoms Flu-like symptoms : Patient Instructions Indication:Flu-like symptoms Depression, acute : Patient Instructions Indication:Depression, acute Left upper quadrant abdomina l tenderness : How to access health information online Indication:Left upper quadrant abdominal tenderness Left upper quadrant abdomina l tenderness : How to access health information online - Detail Indication:Left upper quadrant abdominal tenderness Left upper quadrant abdomina l tenderness : Patient Instructions Indication:Left upper quadrant abdominal tenderness BMI 38.0-38.9,adult : obesit y counseling Indication:BMI 38.0-38.9,adult Obesity : Patient Instructio ns Indication:Obesity Obesity : Patient Instructio nscont eating plan and exercise Indication:Obesity Name Dates Details Non-smoker : How to access h ealth information online Indication:Non-smoker Non-smoker : How to access h ealth information online - Detail Indication:Non-smoker Non-smoker : Patient Instruc tions Indication:Non-smoker BMI 36.0-36.9,adult : How to access health information online Indication:BMI 36.0-36.9,adult BMI 36.0-36.9,adult : How to access health information online - Detail Indication:BMI 36.0-36.9,adult BMI 36.0-36.9,adult : Patien t Instructions Indication:BMI 36.0-36.9,adult BMI 37.0-37.9, adult : How t o access health information online Indication:BMI 37.0-37.9, adult BMI 37.0-37.9, adult : How t o access health information online - Detail Indication:BMI 37.0-37.9, adult BMI 37.0-37.9, adult : Patie nt Instructions Indication:BMI 37.0-37.9, adult BMI 35.0-35.9,adult : How to access health information online Indication:BMI 35.0-35.9,adult BMI 35.0-35.9,adult : How to access health information online - Detail Indication:BMI 35.0-35.9,adult BMI 35.0-35.9,adult : Patien t Instructions Indication:BMI 35.0-35.9,adult Hypertension, essential, elise ign : How to access health information online Indication:Hypertension, essential, benign Hypertension, essential, elise ign : How to access health information online - Detail Indication:Hypertension, essential, benign Hypertension, essential, elise ign : Patient Instructions Indication:Hypertension, essential, benign Flu-like symptoms : How to a ccess health information online Indication:Flu-like symptoms Flu-like symptoms : How to a ccess health information online - Detail Indication:Flu-like symptoms Flu-like symptoms : Patient Instructions Indication:Flu-like symptoms Depression, acute : Patient Instructions Indication:Depression, acute Left upper quadrant abdomina l tenderness : How to access health information online Indication:Left upper quadrant abdominal tenderness Left upper quadrant abdomina l tenderness : How to access health information online - Detail Indication:Left upper quadrant abdominal tenderness Left upper quadrant abdomina l tenderness : Patient Instructions Indication:Left upper quadrant abdominal tenderness BMI 38.0-38.9,adult : obesit y counseling Indication:BMI 38.0-38.9,adult Obesity : Patient Instructio ns Indication:Obesity Obesity : Patient Instructio nscont eating plan and exercise Indication:Obesity Name Dates Details BMI 38.0-38.9,adult : How to access health information online Indication:BMI 38.0-38.9,adult BMI 38.0-38.9,adult : How to access health information online - Detail Indication:BMI 38.0-38.9,adult BMI 38.0-38.9,adult : Patien t Instructions Indication:BMI 38.0-38.9,adult Non-smoker : How to access h ealth information online Indication:Non-smoker Non-smoker : How to access h ealth information online - Detail Indication:Non-smoker Non-smoker : Patient Instruc tions Indication:Non-smoker BMI 36.0-36.9,adult : How to access health information online Indication:BMI 36.0-36.9,adult BMI 36.0-36.9,adult : How to access health information online - Detail Indication:BMI 36.0-36.9,adult BMI 36.0-36.9,adult : Patien t Instructions Indication:BMI 36.0-36.9,adult BMI 37.0-37.9, adult : How t o access health information online Indication:BMI 37.0-37.9, adult BMI 37.0-37.9, adult : How t o access health information online - Detail Indication:BMI 37.0-37.9, adult BMI 37.0-37.9, adult : Patie nt Instructions Indication:BMI 37.0-37.9, adult BMI 35.0-35.9,adult : How to access health information online Indication:BMI 35.0-35.9,adult BMI 35.0-35.9,adult : How to access health information online - Detail Indication:BMI 35.0-35.9,adult BMI 35.0-35.9,adult : Patien t Instructions Indication:BMI 35.0-35.9,adult Hypertension, essential, elise ign : How to access health information online Indication:Hypertension, essential, benign Hypertension, essential, elise ign : How to access health information online - Detail Indication:Hypertension, essential, benign Hypertension, essential, elise ign : Patient Instructions Indication:Hypertension, essential, benign Flu-like symptoms : How to a ccess health information online Indication:Flu-like symptoms Flu-like symptoms : How to a ccess health information online - Detail Indication:Flu-like symptoms Flu-like symptoms : Patient Instructions Indication:Flu-like symptoms Depression, acute : Patient Instructions Indication:Depression, acute Left upper quadrant abdomina l tenderness : How to access health information online Indication:Left upper quadrant abdominal tenderness Left upper quadrant abdomina l tenderness : How to access health information online - Detail Indication:Left upper quadrant abdominal tenderness Left upper quadrant abdomina l tenderness : Patient Instructions Indication:Left upper quadrant abdominal tenderness BMI 38.0-38.9,adult : obesit y counseling Indication:BMI 38.0-38.9,adult Obesity : Patient Instructio ns Indication:Obesity Obesity : Patient Instructio nscont eating plan and exercise Indication:Obesity Name Dates Details BMI 36.0-36.9,adult : How to access health information online Indication:BMI 36.0-36.9,adult BMI 36.0-36.9,adult : How to access health information online - Detail Indication:BMI 36.0-36.9,adult BMI 36.0-36.9,adult : Patien t Instructions Indication:BMI 36.0-36.9,adult BMI 38.0-38.9,adult : How to access health information online Indication:BMI 38.0-38.9,adult BMI 38.0-38.9,adult : How to access health information online - Detail Indication:BMI 38.0-38.9,adult BMI 38.0-38.9,adult : Patien t Instructions Indication:BMI 38.0-38.9,adult Non-smoker : How to access h ealth information online Indication:Non-smoker Non-smoker : How to access h ealth information online - Detail Indication:Non-smoker Non-smoker : Patient Instruc tions Indication:Non-smoker BMI 37.0-37.9, adult : How t o access health information online Indication:BMI 37.0-37.9, adult BMI 37.0-37.9, adult : How t o access health information online - Detail Indication:BMI 37.0-37.9, adult BMI 37.0-37.9, adult : Patie nt Instructions Indication:BMI 37.0-37.9, adult BMI 35.0-35.9,adult : How to access health information online Indication:BMI 35.0-35.9,adult BMI 35.0-35.9,adult : How to access health information online - Detail Indication:BMI 35.0-35.9,adult BMI 35.0-35.9,adult : Patien t Instructions Indication:BMI 35.0-35.9,adult Hypertension, essential, elise ign : How to access health information online Indication:Hypertension, essential, benign Hypertension, essential, elise ign : How to access health information online - Detail Indication:Hypertension, essential, benign Hypertension, essential, elise ign : Patient Instructions Indication:Hypertension, essential, benign Flu-like symptoms : How to a ccess health information online Indication:Flu-like symptoms Flu-like symptoms : How to a ccess health information online - Detail Indication:Flu-like symptoms Flu-like symptoms : Patient Instructions Indication:Flu-like symptoms Depression, acute : Patient Instructions Indication:Depression, acute Left upper quadrant abdomina l tenderness : How to access health information online Indication:Left upper quadrant abdominal tenderness Left upper quadrant abdomina l tenderness : How to access health information online - Detail Indication:Left upper quadrant abdominal tenderness Left upper quadrant abdomina l tenderness : Patient Instructions Indication:Left upper quadrant abdominal tenderness BMI 38.0-38.9,adult : obesit y counseling Indication:BMI 38.0-38.9,adult Obesity : Patient Instructio ns Indication:Obesity Obesity : Patient Instructio nscont eating plan and exercise Indication:Obesity Name Dates Details How to access health informa tion online Indication:BMI 34.0-34.9,adult Start:22-Sep-2018 Instruction Type:Patient Education How to access health informa tion online - Detail Indication:BMI 34.0-34.9,adult Start:22-Sep-2018 Instruction Type:Patient Education Patient Instructions Indication:BMI 34.0-34.9,adult Start:22-Sep-2018 Instruction Type:Provider Instructions for Treatment How to access health informa tion online Indication:Non-smoker Start:06-Sep-2018 Instruction Type:Patient Education How to access health informa tion online - Detail Indication:Non-smoker Start:06-Sep-2018 Instruction Type:Patient Education Patient Instructions Indication:Non-smoker Start:06-Sep-2018 Instruction Type:Provider Instructions for Treatment How to access health informa tion online Indication:BMI 36.0-36.9,adult Start:25-Aug-2018 Instruction Type:Patient Education How to access health informa tion online - Detail Indication:BMI 36.0-36.9,adult Start:25-Aug-2018 Instruction Type:Patient Education Patient Instructions Indication:BMI 36.0-36.9,adult Start:25-Aug-2018 Instruction Type:Provider Instructions for Treatment How to access health informa tion online Indication:BMI 38.0-38.9,adult Start:31-Jul-2018 Instruction Type:Patient Education How to access health informa tion online - Detail Indication:BMI 38.0-38.9,adult Start:31-Jul-2018 Instruction Type:Patient Education Patient Instructions Indication:BMI 38.0-38.9,adult Start:31-Jul-2018 Instruction Type:Provider Instructions for Treatment How to access health informa tion online Indication:Non-smoker Start:23-Jun-2018 Instruction Type:Patient Education How to access health informa tion online - Detail Indication:Non-smoker Start:23-Jun-2018 Instruction Type:Patient Education Patient Instructions Indication:Non-smoker Start:23-Jun-2018 Instruction Type:Provider Instructions for Treatment How to access health informa tion online Indication:Non-smoker Start:16-Jun-2018 Instruction Type:Patient Education How to access health informa tion online - Detail Indication:Non-smoker Start:16-Jun-2018 Instruction Type:Patient Education Patient Instructions Indication:Non-smoker Start:16-Jun-2018 Instruction Type:Provider Instructions for Treatment How to access health informa tion online Indication:Non-smoker Start:08-Nov-2017 Instruction Type:Patient Education How to access health informa tion online - Detail Indication:Non-smoker Start:08-Nov-2017 Instruction Type:Patient Education Patient Instructions Indication:Non-smoker Start:08-Nov-2017 Instruction Type:Provider Instructions for Treatment How to access health informa tion online Indication:BMI 36.0-36.9,adult Start:30-Sep-2017 Instruction Type:Patient Education How to access health informa tion online - Detail Indication:BMI 36.0-36.9,adult Start:30-Sep-2017 Instruction Type:Patient Education Patient Instructions Indication:BMI 36.0-36.9,adult Start:30-Sep-2017 Instruction Type:Provider Instructions for Treatment How to access health informa tion online Indication:BMI 37.0-37.9, adult Start:23-Aug-2017 Instruction Type:Patient Education How to access health informa tion online - Detail Indication:BMI 37.0-37.9, adult Start:23-Aug-2017 Instruction Type:Patient Education Patient Instructions Indication:BMI 37.0-37.9, adult Start:23-Aug-2017 Instruction Type:Provider Instructions for Treatment How to access health informa tion online Indication:BMI 35.0-35.9,adult Start:06-May-2017 Instruction Type:Patient Education How to access health informa tion online - Detail Indication:BMI 35.0-35.9,adult Start:06-May-2017 Instruction Type:Patient Education Patient Instructions Indication:BMI 35.0-35.9,adult Start:06-May-2017 Instruction Type:Provider Instructions for Treatment How to access health informa tion online Indication:BMI 36.0-36.9,adult Start:11-Mar-2017 Instruction Type:Patient Education How to access health informa tion online - Detail Indication:BMI 36.0-36.9,adult Start:11-Mar-2017 Instruction Type:Patient Education Patient Instructions Indication:BMI 36.0-36.9,adult Start:11-Mar-2017 Instruction Type:Provider Instructions for Treatment How to access health informa tion online Indication:Hypertension, essential, benign Start:07-Feb-2017 Instruction Type:Patient Education How to access health informa tion online - Detail Indication:Hypertension, essential, benign Start:07-Feb-2017 Instruction Type:Patient Education Patient Instructions Indication:Hypertension, essential, benign Start:07-Feb-2017 Instruction Type:Provider Instructions for Treatment How to access health informa tion online Indication:Flu-like symptoms Start:02-Jun-2016 Instruction Type:Patient Education How to access health informa tion online - Detail Indication:Flu-like symptoms Start:02-Jun-2016 Instruction Type:Patient Education Patient Instructions Indication:Flu-like symptoms Start:02-Jun-2016 Instruction Type:Provider Instructions for Treatment Patient Instructions Indication:Depression, acute Start:21-May-2016 Instruction Type:Provider Instructions for Treatment Patient Instructions Indication:Depression, acute Start:07-Apr-2016 Instruction Type:Provider Instructions for Treatment How to access health informa tion online Indication:Left upper quadrant abdominal tenderness Start:29-Sep-2015 Instruction Type:Patient Education How to access health informa tion online - Detail Indication:Left upper quadrant abdominal tenderness Start:29-Sep-2015 Instruction Type:Patient Education Patient Instructions Indication:Left upper quadrant abdominal tenderness Start:29-Sep-2015 Instruction Type:Provider Instructions for Treatment How to access health informa tion online Indication:Hypertension, essential, benign Start:01-Nov-2014 Instruction Type:Patient Education How to access health informa tion online - Detail Indication:Hypertension, essential, benign Start:01-Nov-2014 Instruction Type:Patient Education Patient Instructions Indication:Hypertension, essential, benign Start:01-Nov-2014 Instruction Type:Provider Instructions for Treatment Patient Instructions Indication:Hypertension, essential, benign Start:04-Jan-2014 Instruction Type:Provider Instructions for Treatment How to access health informa tion online Indication:Hypertension, essential, benign Start:04-Jan-2014 Instruction Type:Patient Education How to access health informa tion online - Detail Indication:Hypertension, essential, benign Start:04-Jan-2014 Instruction Type:Patient Education obesity counseling Indication:BMI 38.0-38.9,adult Start:20-Dec-2012 Instruction Type:Provider Instructions for Treatment Patient Instructions Indication:Hypertension, essential, benign Start:20-Dec-2012 Instruction Type:Provider Instructions for Treatment Patient Instructions Indication:Obesity Start:24-Feb-2012 Instruction Type:Provider Instructions for Treatment Patient Instructions Indication:Obesity Start:07-Feb-2012 Instruction Type:Provider Instructions for Treatment Patient Instructions Indication:Obesity Start:25-Jan-2012 Instruction Type:Provider Instructions for Treatment Patient Instructionscont eat ing plan and exercise Indication:Obesity Start:13-Jan-2012 Instruction Type:Provider Instructions for Treatment Name Dates Details How to access health informa tion online Indication:Weight gain Start:14-Feb-2019 Instruction Type:Patient Education How to access health informa tion online - Detail Indication:Weight gain Start:14-Feb-2019 Instruction Type:Patient Education Patient Instructions Indication:Weight gain Start:14-Feb-2019 Instruction Type:Provider Instructions for Treatment How to access health informa tion online Indication:BMI 34.0-34.9,adult Start:22-Sep-2018 Instruction Type:Patient Education How to access health informa tion online - Detail Indication:BMI 34.0-34.9,adult Start:22-Sep-2018 Instruction Type:Patient Education Patient Instructions Indication:BMI 34.0-34.9,adult Start:22-Sep-2018 Instruction Type:Provider Instructions for Treatment How to access health informa tion online Indication:Non-smoker Start:06-Sep-2018 Instruction Type:Patient Education How to access health informa tion online - Detail Indication:Non-smoker Start:06-Sep-2018 Instruction Type:Patient Education Patient Instructions Indication:Non-smoker Start:06-Sep-2018 Instruction Type:Provider Instructions for Treatment How to access health informa tion online Indication:BMI 36.0-36.9,adult Start:25-Aug-2018 Instruction Type:Patient Education How to access health informa tion online - Detail Indication:BMI 36.0-36.9,adult Start:25-Aug-2018 Instruction Type:Patient Education Patient Instructions Indication:BMI 36.0-36.9,adult Start:25-Aug-2018 Instruction Type:Provider Instructions for Treatment How to access health informa tion online Indication:BMI 38.0-38.9,adult Start:31-Jul-2018 Instruction Type:Patient Education How to access health informa tion online - Detail Indication:BMI 38.0-38.9,adult Start:31-Jul-2018 Instruction Type:Patient Education Patient Instructions Indication:BMI 38.0-38.9,adult Start:31-Jul-2018 Instruction Type:Provider Instructions for Treatment How to access health informa tion online Indication:Non-smoker Start:23-Jun-2018 Instruction Type:Patient Education How to access health informa tion online - Detail Indication:Non-smoker Start:23-Jun-2018 Instruction Type:Patient Education Patient Instructions Indication:Non-smoker Start:23-Jun-2018 Instruction Type:Provider Instructions for Treatment How to access health informa tion online Indication:Non-smoker Start:16-Jun-2018 Instruction Type:Patient Education How to access health informa tion online - Detail Indication:Non-smoker Start:16-Jun-2018 Instruction Type:Patient Education Patient Instructions Indication:Non-smoker Start:16-Jun-2018 Instruction Type:Provider Instructions for Treatment How to access health informa tion online Indication:Non-smoker Start:08-Nov-2017 Instruction Type:Patient Education How to access health informa tion online - Detail Indication:Non-smoker Start:08-Nov-2017 Instruction Type:Patient Education Patient Instructions Indication:Non-smoker Start:08-Nov-2017 Instruction Type:Provider Instructions for Treatment How to access health informa tion online Indication:BMI 36.0-36.9,adult Start:30-Sep-2017 Instruction Type:Patient Education How to access health informa tion online - Detail Indication:BMI 36.0-36.9,adult Start:30-Sep-2017 Instruction Type:Patient Education Patient Instructions Indication:BMI 36.0-36.9,adult Start:30-Sep-2017 Instruction Type:Provider Instructions for Treatment How to access health informa tion online Indication:BMI 37.0-37.9, adult Start:23-Aug-2017 Instruction Type:Patient Education How to access health informa tion online - Detail Indication:BMI 37.0-37.9, adult Start:23-Aug-2017 Instruction Type:Patient Education Patient Instructions Indication:BMI 37.0-37.9, adult Start:23-Aug-2017 Instruction Type:Provider Instructions for Treatment How to access health informa tion online Indication:BMI 35.0-35.9,adult Start:06-May-2017 Instruction Type:Patient Education How to access health informa tion online - Detail Indication:BMI 35.0-35.9,adult Start:06-May-2017 Instruction Type:Patient Education Patient Instructions Indication:BMI 35.0-35.9,adult Start:06-May-2017 Instruction Type:Provider Instructions for Treatment How to access health informa tion online Indication:BMI 36.0-36.9,adult Start:11-Mar-2017 Instruction Type:Patient Education How to access health informa tion online - Detail Indication:BMI 36.0-36.9,adult Start:11-Mar-2017 Instruction Type:Patient Education Patient Instructions Indication:BMI 36.0-36.9,adult Start:11-Mar-2017 Instruction Type:Provider Instructions for Treatment How to access health informa tion online Indication:Hypertension, essential, benign Start:07-Feb-2017 Instruction Type:Patient Education How to access health informa tion online - Detail Indication:Hypertension, essential, benign Start:07-Feb-2017 Instruction Type:Patient Education Patient Instructions Indication:Hypertension, essential, benign Start:07-Feb-2017 Instruction Type:Provider Instructions for Treatment How to access health informa tion online Indication:Flu-like symptoms Start:02-Jun-2016 Instruction Type:Patient Education How to access health informa tion online - Detail Indication:Flu-like symptoms Start:02-Jun-2016 Instruction Type:Patient Education Patient Instructions Indication:Flu-like symptoms Start:02-Jun-2016 Instruction Type:Provider Instructions for Treatment Patient Instructions Indication:Depression, acute Start:21-May-2016 Instruction Type:Provider Instructions for Treatment Patient Instructions Indication:Depression, acute Start:07-Apr-2016 Instruction Type:Provider Instructions for Treatment How to access health informa tion online Indication:Left upper quadrant abdominal tenderness Start:29-Sep-2015 Instruction Type:Patient Education How to access health informa tion online - Detail Indication:Left upper quadrant abdominal tenderness Start:29-Sep-2015 Instruction Type:Patient Education Patient Instructions Indication:Left upper quadrant abdominal tenderness Start:29-Sep-2015 Instruction Type:Provider Instructions for Treatment How to access health informa tion online Indication:Hypertension, essential, benign Start:01-Nov-2014 Instruction Type:Patient Education How to access health informa tion online - Detail Indication:Hypertension, essential, benign Start:01-Nov-2014 Instruction Type:Patient Education Patient Instructions Indication:Hypertension, essential, benign Start:01-Nov-2014 Instruction Type:Provider Instructions for Treatment Patient Instructions Indication:Hypertension, essential, benign Start:04-Jan-2014 Instruction Type:Provider Instructions for Treatment How to access health informa tion online Indication:Hypertension, essential, benign Start:04-Jan-2014 Instruction Type:Patient Education How to access health informa tion online - Detail Indication:Hypertension, essential, benign Start:04-Jan-2014 Instruction Type:Patient Education obesity counseling Indication:BMI 38.0-38.9,adult Start:20-Dec-2012 Instruction Type:Provider Instructions for Treatment Patient Instructions Indication:Hypertension, essential, benign Start:20-Dec-2012 Instruction Type:Provider Instructions for Treatment Patient Instructions Indication:Obesity Start:24-Feb-2012 Instruction Type:Provider Instructions for Treatment Patient Instructions Indication:Obesity Start:07-Feb-2012 Instruction Type:Provider Instructions for Treatment Patient Instructions Indication:Obesity Start:25-Jan-2012 Instruction Type:Provider Instructions for Treatment Patient Instructionscont eat ing plan and exercise Indication:Obesity Start:13-Jan-2012 Instruction Type:Provider Instructions for Treatment Name Dates Details How to access health informa tion online Indication:Non-smoker Start:27-Nov-2019 Instruction Type:Patient Education How to access health informa tion online - Detail Indication:Non-smoker Start:27-Nov-2019 Instruction Type:Patient Education Patient Instructions Indication:Non-smoker Start:27-Nov-2019 Instruction Type:Provider Instructions for Treatment How to access health informa tion online Indication:Non-smoker Start:30-Aug-2019 Instruction Type:Patient Education How to access health informa tion online - Detail Indication:Non-smoker Start:30-Aug-2019 Instruction Type:Patient Education Patient Instructions Indication:Non-smoker Start:30-Aug-2019 Instruction Type:Provider Instructions for Treatment How to access health informa tion online Indication:Weight gain Start:14-Feb-2019 Instruction Type:Patient Education How to access health informa tion online - Detail Indication:Weight gain Start:14-Feb-2019 Instruction Type:Patient Education Patient Instructions Indication:Weight gain Start:14-Feb-2019 Instruction Type:Provider Instructions for Treatment How to access health informa tion online Indication:BMI 34.0-34.9,adult Start:22-Sep-2018 Instruction Type:Patient Education How to access health informa tion online - Detail Indication:BMI 34.0-34.9,adult Start:22-Sep-2018 Instruction Type:Patient Education Patient Instructions Indication:BMI 34.0-34.9,adult Start:22-Sep-2018 Instruction Type:Provider Instructions for Treatment How to access health informa tion online Indication:Non-smoker Start:06-Sep-2018 Instruction Type:Patient Education How to access health informa tion online - Detail Indication:Non-smoker Start:06-Sep-2018 Instruction Type:Patient Education Patient Instructions Indication:Non-smoker Start:06-Sep-2018 Instruction Type:Provider Instructions for Treatment How to access health informa tion online Indication:BMI 36.0-36.9,adult Start:25-Aug-2018 Instruction Type:Patient Education How to access health informa tion online - Detail Indication:BMI 36.0-36.9,adult Start:25-Aug-2018 Instruction Type:Patient Education Patient Instructions Indication:BMI 36.0-36.9,adult Start:25-Aug-2018 Instruction Type:Provider Instructions for Treatment How to access health informa tion online Indication:BMI 38.0-38.9,adult Start:31-Jul-2018 Instruction Type:Patient Education How to access health informa tion online - Detail Indication:BMI 38.0-38.9,adult Start:31-Jul-2018 Instruction Type:Patient Education Patient Instructions Indication:BMI 38.0-38.9,adult Start:31-Jul-2018 Instruction Type:Provider Instructions for Treatment How to access health informa tion online Indication:Non-smoker Start:23-Jun-2018 Instruction Type:Patient Education How to access health informa tion online - Detail Indication:Non-smoker Start:23-Jun-2018 Instruction Type:Patient Education Patient Instructions Indication:Non-smoker Start:23-Jun-2018 Instruction Type:Provider Instructions for Treatment How to access health informa tion online Indication:Non-smoker Start:16-Jun-2018 Instruction Type:Patient Education How to access health informa tion online - Detail Indication:Non-smoker Start:16-Jun-2018 Instruction Type:Patient Education Patient Instructions Indication:Non-smoker Start:16-Jun-2018 Instruction Type:Provider Instructions for Treatment How to access health informa tion online Indication:Non-smoker Start:08-Nov-2017 Instruction Type:Patient Education How to access health informa tion online - Detail Indication:Non-smoker Start:08-Nov-2017 Instruction Type:Patient Education Patient Instructions Indication:Non-smoker Start:08-Nov-2017 Instruction Type:Provider Instructions for Treatment How to access health informa tion online Indication:BMI 36.0-36.9,adult Start:30-Sep-2017 Instruction Type:Patient Education How to access health informa tion online - Detail Indication:BMI 36.0-36.9,adult Start:30-Sep-2017 Instruction Type:Patient Education Patient Instructions Indication:BMI 36.0-36.9,adult Start:30-Sep-2017 Instruction Type:Provider Instructions for Treatment How to access health informa tion online Indication:BMI 37.0-37.9, adult Start:23-Aug-2017 Instruction Type:Patient Education How to access health informa tion online - Detail Indication:BMI 37.0-37.9, adult Start:23-Aug-2017 Instruction Type:Patient Education Patient Instructions Indication:BMI 37.0-37.9, adult Start:23-Aug-2017 Instruction Type:Provider Instructions for Treatment How to access health informa tion online Indication:BMI 35.0-35.9,adult Start:06-May-2017 Instruction Type:Patient Education How to access health informa tion online - Detail Indication:BMI 35.0-35.9,adult Start:06-May-2017 Instruction Type:Patient Education Patient Instructions Indication:BMI 35.0-35.9,adult Start:06-May-2017 Instruction Type:Provider Instructions for Treatment How to access health informa tion online Indication:BMI 36.0-36.9,adult Start:11-Mar-2017 Instruction Type:Patient Education How to access health informa tion online - Detail Indication:BMI 36.0-36.9,adult Start:11-Mar-2017 Instruction Type:Patient Education Patient Instructions Indication:BMI 36.0-36.9,adult Start:11-Mar-2017 Instruction Type:Provider Instructions for Treatment How to access health informa tion online Indication:Hypertension, essential, benign Start:07-Feb-2017 Instruction Type:Patient Education How to access health informa tion online - Detail Indication:Hypertension, essential, benign Start:07-Feb-2017 Instruction Type:Patient Education Patient Instructions Indication:Hypertension, essential, benign Start:07-Feb-2017 Instruction Type:Provider Instructions for Treatment How to access health informa tion online Indication:Flu-like symptoms Start:02-Jun-2016 Instruction Type:Patient Education How to access health informa tion online - Detail Indication:Flu-like symptoms Start:02-Jun-2016 Instruction Type:Patient Education Patient Instructions Indication:Flu-like symptoms Start:02-Jun-2016 Instruction Type:Provider Instructions for Treatment Patient Instructions Indication:Depression, acute Start:21-May-2016 Instruction Type:Provider Instructions for Treatment Patient Instructions Indication:Depression, acute Start:07-Apr-2016 Instruction Type:Provider Instructions for Treatment How to access health informa tion online Indication:Left upper quadrant abdominal tenderness Start:29-Sep-2015 Instruction Type:Patient Education How to access health informa tion online - Detail Indication:Left upper quadrant abdominal tenderness Start:29-Sep-2015 Instruction Type:Patient Education Patient Instructions Indication:Left upper quadrant abdominal tenderness Start:29-Sep-2015 Instruction Type:Provider Instructions for Treatment How to access health informa tion online Indication:Hypertension, essential, benign Start:01-Nov-2014 Instruction Type:Patient Education How to access health informa tion online - Detail Indication:Hypertension, essential, benign Start:01-Nov-2014 Instruction Type:Patient Education Patient Instructions Indication:Hypertension, essential, benign Start:01-Nov-2014 Instruction Type:Provider Instructions for Treatment Patient Instructions Indication:Hypertension, essential, benign Start:04-Jan-2014 Instruction Type:Provider Instructions for Treatment How to access health informa tion online Indication:Hypertension, essential, benign Start:04-Jan-2014 Instruction Type:Patient Education How to access health informa tion online - Detail Indication:Hypertension, essential, benign Start:04-Jan-2014 Instruction Type:Patient Education obesity counseling Indication:BMI 38.0-38.9,adult Start:20-Dec-2012 Instruction Type:Provider Instructions for Treatment Patient Instructions Indication:Hypertension, essential, benign Start:20-Dec-2012 Instruction Type:Provider Instructions for Treatment Patient Instructions Indication:Obesity Start:24-Feb-2012 Instruction Type:Provider Instructions for Treatment Patient Instructions Indication:Obesity Start:07-Feb-2012 Instruction Type:Provider Instructions for Treatment Patient Instructions Indication:Obesity Start:25-Jan-2012 Instruction Type:Provider Instructions for Treatment Patient Instructionscont eat ing plan and exercise Indication:Obesity Start:13-Jan-2012 Instruction Type:Provider Instructions for Treatment Name Dates Details How to access health informa tion online Indication:Non-smoker Start:27-Nov-2019 Instruction Type:Patient Education How to access health informa tion online - Detail Indication:Non-smoker Start:27-Nov-2019 Instruction Type:Patient Education Patient Instructions Indication:Non-smoker Start:27-Nov-2019 Instruction Type:Provider Instructions for Treatment How to access health informa tion online Indication:Non-smoker Start:30-Aug-2019 Instruction Type:Patient Education How to access health informa tion online - Detail Indication:Non-smoker Start:30-Aug-2019 Instruction Type:Patient Education Patient Instructions Indication:Non-smoker Start:30-Aug-2019 Instruction Type:Provider Instructions for Treatment How to access health informa tion online Indication:Weight gain Start:14-Feb-2019 Instruction Type:Patient Education How to access health informa tion online - Detail Indication:Weight gain Start:14-Feb-2019 Instruction Type:Patient Education Patient Instructions Indication:Weight gain Start:14-Feb-2019 Instruction Type:Provider Instructions for Treatment How to access health informa tion online Indication:BMI 34.0-34.9,adult Start:22-Sep-2018 Instruction Type:Patient Education How to access health informa tion online - Detail Indication:BMI 34.0-34.9,adult Start:22-Sep-2018 Instruction Type:Patient Education Patient Instructions Indication:BMI 34.0-34.9,adult Start:22-Sep-2018 Instruction Type:Provider Instructions for Treatment How to access health informa tion online Indication:Non-smoker Start:06-Sep-2018 Instruction Type:Patient Education How to access health informa tion online - Detail Indication:Non-smoker Start:06-Sep-2018 Instruction Type:Patient Education Patient Instructions Indication:Non-smoker Start:06-Sep-2018 Instruction Type:Provider Instructions for Treatment How to access health informa tion online Indication:BMI 36.0-36.9,adult Start:25-Aug-2018 Instruction Type:Patient Education How to access health informa tion online - Detail Indication:BMI 36.0-36.9,adult Start:25-Aug-2018 Instruction Type:Patient Education Patient Instructions Indication:BMI 36.0-36.9,adult Start:25-Aug-2018 Instruction Type:Provider Instructions for Treatment How to access health informa tion online Indication:BMI 38.0-38.9,adult Start:31-Jul-2018 Instruction Type:Patient Education How to access health informa tion online - Detail Indication:BMI 38.0-38.9,adult Start:31-Jul-2018 Instruction Type:Patient Education Patient Instructions Indication:BMI 38.0-38.9,adult Start:31-Jul-2018 Instruction Type:Provider Instructions for Treatment How to access health informa tion online Indication:Non-smoker Start:23-Jun-2018 Instruction Type:Patient Education How to access health informa tion online - Detail Indication:Non-smoker Start:23-Jun-2018 Instruction Type:Patient Education Patient Instructions Indication:Non-smoker Start:23-Jun-2018 Instruction Type:Provider Instructions for Treatment How to access health informa tion online Indication:Non-smoker Start:16-Jun-2018 Instruction Type:Patient Education How to access health informa tion online - Detail Indication:Non-smoker Start:16-Jun-2018 Instruction Type:Patient Education Patient Instructions Indication:Non-smoker Start:16-Jun-2018 Instruction Type:Provider Instructions for Treatment How to access health informa tion online Indication:Non-smoker Start:08-Nov-2017 Instruction Type:Patient Education How to access health informa tion online - Detail Indication:Non-smoker Start:08-Nov-2017 Instruction Type:Patient Education Patient Instructions Indication:Non-smoker Start:08-Nov-2017 Instruction Type:Provider Instructions for Treatment How to access health informa tion online Indication:BMI 36.0-36.9,adult Start:30-Sep-2017 Instruction Type:Patient Education How to access health informa tion online - Detail Indication:BMI 36.0-36.9,adult Start:30-Sep-2017 Instruction Type:Patient Education Patient Instructions Indication:BMI 36.0-36.9,adult Start:30-Sep-2017 Instruction Type:Provider Instructions for Treatment How to access health informa tion online Indication:BMI 37.0-37.9, adult Start:23-Aug-2017 Instruction Type:Patient Education How to access health informa tion online - Detail Indication:BMI 37.0-37.9, adult Start:23-Aug-2017 Instruction Type:Patient Education Patient Instructions Indication:BMI 37.0-37.9, adult Start:23-Aug-2017 Instruction Type:Provider Instructions for Treatment How to access health informa tion online Indication:BMI 35.0-35.9,adult Start:06-May-2017 Instruction Type:Patient Education How to access health informa tion online - Detail Indication:BMI 35.0-35.9,adult Start:06-May-2017 Instruction Type:Patient Education Patient Instructions Indication:BMI 35.0-35.9,adult Start:06-May-2017 Instruction Type:Provider Instructions for Treatment How to access health informa tion online Indication:BMI 36.0-36.9,adult Start:11-Mar-2017 Instruction Type:Patient Education How to access health informa tion online - Detail Indication:BMI 36.0-36.9,adult Start:11-Mar-2017 Instruction Type:Patient Education Patient Instructions Indication:BMI 36.0-36.9,adult Start:11-Mar-2017 Instruction Type:Provider Instructions for Treatment How to access health informa tion online Indication:Hypertension, essential, benign Start:07-Feb-2017 Instruction Type:Patient Education How to access health informa tion online - Detail Indication:Hypertension, essential, benign Start:07-Feb-2017 Instruction Type:Patient Education Patient Instructions Indication:Hypertension, essential, benign Start:07-Feb-2017 Instruction Type:Provider Instructions for Treatment How to access health informa tion online Indication:Flu-like symptoms Start:02-Jun-2016 Instruction Type:Patient Education How to access health informa tion online - Detail Indication:Flu-like symptoms Start:02-Jun-2016 Instruction Type:Patient Education Patient Instructions Indication:Flu-like symptoms Start:02-Jun-2016 Instruction Type:Provider Instructions for Treatment Patient Instructions Indication:Depression, acute Start:21-May-2016 Instruction Type:Provider Instructions for Treatment Patient Instructions Indication:Depression, acute Start:07-Apr-2016 Instruction Type:Provider Instructions for Treatment How to access health informa tion online Indication:Left upper quadrant abdominal tenderness Start:29-Sep-2015 Instruction Type:Patient Education How to access health informa tion online - Detail Indication:Left upper quadrant abdominal tenderness Start:29-Sep-2015 Instruction Type:Patient Education Patient Instructions Indication:Left upper quadrant abdominal tenderness Start:29-Sep-2015 Instruction Type:Provider Instructions for Treatment How to access health informa tion online Indication:Hypertension, essential, benign Start:01-Nov-2014 Instruction Type:Patient Education How to access health informa tion online - Detail Indication:Hypertension, essential, benign Start:01-Nov-2014 Instruction Type:Patient Education Patient Instructions Indication:Hypertension, essential, benign Start:01-Nov-2014 Instruction Type:Provider Instructions for Treatment Patient Instructions Indication:Hypertension, essential, benign Start:04-Jan-2014 Instruction Type:Provider Instructions for Treatment How to access health informa tion online Indication:Hypertension, essential, benign Start:04-Jan-2014 Instruction Type:Patient Education How to access health informa tion online - Detail Indication:Hypertension, essential, benign Start:04-Jan-2014 Instruction Type:Patient Education obesity counseling Indication:BMI 38.0-38.9,adult Start:20-Dec-2012 Instruction Type:Provider Instructions for Treatment Patient Instructions Indication:Hypertension, essential, benign Start:20-Dec-2012 Instruction Type:Provider Instructions for Treatment Patient Instructions Indication:Obesity Start:24-Feb-2012 Instruction Type:Provider Instructions for Treatment Patient Instructions Indication:Obesity Start:07-Feb-2012 Instruction Type:Provider Instructions for Treatment Patient Instructions Indication:Obesity Start:25-Jan-2012 Instruction Type:Provider Instructions for Treatment Patient Instructionscont eat ing plan and exercise Indication:Obesity Start:13-Jan-2012 Instruction Type:Provider Instructions for Treatment Name Dates Details How to access health informa tion online Indication:Non-smoker Start:27-Nov-2019 Instruction Type:Patient Education How to access health informa tion online - Detail Indication:Non-smoker Start:27-Nov-2019 Instruction Type:Patient Education Patient Instructions Indication:Non-smoker Start:27-Nov-2019 Instruction Type:Provider Instructions for Treatment How to access health informa tion online Indication:Non-smoker Start:30-Aug-2019 Instruction Type:Patient Education How to access health informa tion online - Detail Indication:Non-smoker Start:30-Aug-2019 Instruction Type:Patient Education Patient Instructions Indication:Non-smoker Start:30-Aug-2019 Instruction Type:Provider Instructions for Treatment How to access health informa tion online Indication:Weight gain Start:14-Feb-2019 Instruction Type:Patient Education How to access health informa tion online - Detail Indication:Weight gain Start:14-Feb-2019 Instruction Type:Patient Education Patient Instructions Indication:Weight gain Start:14-Feb-2019 Instruction Type:Provider Instructions for Treatment How to access health informa tion online Indication:BMI 34.0-34.9,adult Start:22-Sep-2018 Instruction Type:Patient Education How to access health informa tion online - Detail Indication:BMI 34.0-34.9,adult Start:22-Sep-2018 Instruction Type:Patient Education Patient Instructions Indication:BMI 34.0-34.9,adult Start:22-Sep-2018 Instruction Type:Provider Instructions for Treatment How to access health informa tion online Indication:Non-smoker Start:06-Sep-2018 Instruction Type:Patient Education How to access health informa tion online - Detail Indication:Non-smoker Start:06-Sep-2018 Instruction Type:Patient Education Patient Instructions Indication:Non-smoker Start:06-Sep-2018 Instruction Type:Provider Instructions for Treatment How to access health informa tion online Indication:BMI 36.0-36.9,adult Start:25-Aug-2018 Instruction Type:Patient Education How to access health informa tion online - Detail Indication:BMI 36.0-36.9,adult Start:25-Aug-2018 Instruction Type:Patient Education Patient Instructions Indication:BMI 36.0-36.9,adult Start:25-Aug-2018 Instruction Type:Provider Instructions for Treatment How to access health informa tion online Indication:BMI 38.0-38.9,adult Start:31-Jul-2018 Instruction Type:Patient Education How to access health informa tion online - Detail Indication:BMI 38.0-38.9,adult Start:31-Jul-2018 Instruction Type:Patient Education Patient Instructions Indication:BMI 38.0-38.9,adult Start:31-Jul-2018 Instruction Type:Provider Instructions for Treatment How to access health informa tion online Indication:Non-smoker Start:23-Jun-2018 Instruction Type:Patient Education How to access health informa tion online - Detail Indication:Non-smoker Start:23-Jun-2018 Instruction Type:Patient Education Patient Instructions Indication:Non-smoker Start:23-Jun-2018 Instruction Type:Provider Instructions for Treatment How to access health informa tion online Indication:Non-smoker Start:16-Jun-2018 Instruction Type:Patient Education How to access health informa tion online - Detail Indication:Non-smoker Start:16-Jun-2018 Instruction Type:Patient Education Patient Instructions Indication:Non-smoker Start:16-Jun-2018 Instruction Type:Provider Instructions for Treatment How to access health informa tion online Indication:Non-smoker Start:08-Nov-2017 Instruction Type:Patient Education How to access health informa tion online - Detail Indication:Non-smoker Start:08-Nov-2017 Instruction Type:Patient Education Patient Instructions Indication:Non-smoker Start:08-Nov-2017 Instruction Type:Provider Instructions for Treatment How to access health informa tion online Indication:BMI 36.0-36.9,adult Start:30-Sep-2017 Instruction Type:Patient Education How to access health informa tion online - Detail Indication:BMI 36.0-36.9,adult Start:30-Sep-2017 Instruction Type:Patient Education Patient Instructions Indication:BMI 36.0-36.9,adult Start:30-Sep-2017 Instruction Type:Provider Instructions for Treatment How to access health informa tion online Indication:BMI 37.0-37.9, adult Start:23-Aug-2017 Instruction Type:Patient Education How to access health informa tion online - Detail Indication:BMI 37.0-37.9, adult Start:23-Aug-2017 Instruction Type:Patient Education Patient Instructions Indication:BMI 37.0-37.9, adult Start:23-Aug-2017 Instruction Type:Provider Instructions for Treatment How to access health informa tion online Indication:BMI 35.0-35.9,adult Start:06-May-2017 Instruction Type:Patient Education How to access health informa tion online - Detail Indication:BMI 35.0-35.9,adult Start:06-May-2017 Instruction Type:Patient Education Patient Instructions Indication:BMI 35.0-35.9,adult Start:06-May-2017 Instruction Type:Provider Instructions for Treatment How to access health informa tion online Indication:BMI 36.0-36.9,adult Start:11-Mar-2017 Instruction Type:Patient Education How to access health informa tion online - Detail Indication:BMI 36.0-36.9,adult Start:11-Mar-2017 Instruction Type:Patient Education Patient Instructions Indication:BMI 36.0-36.9,adult Start:11-Mar-2017 Instruction Type:Provider Instructions for Treatment How to access health informa tion online Indication:Hypertension, essential, benign Start:07-Feb-2017 Instruction Type:Patient Education How to access health informa tion online - Detail Indication:Hypertension, essential, benign Start:07-Feb-2017 Instruction Type:Patient Education Patient Instructions Indication:Hypertension, essential, benign Start:07-Feb-2017 Instruction Type:Provider Instructions for Treatment How to access health informa tion online Indication:Flu-like symptoms Start:02-Jun-2016 Instruction Type:Patient Education How to access health informa tion online - Detail Indication:Flu-like symptoms Start:02-Jun-2016 Instruction Type:Patient Education Patient Instructions Indication:Flu-like symptoms Start:02-Jun-2016 Instruction Type:Provider Instructions for Treatment Patient Instructions Indication:Depression, acute Start:21-May-2016 Instruction Type:Provider Instructions for Treatment Patient Instructions Indication:Depression, acute Start:07-Apr-2016 Instruction Type:Provider Instructions for Treatment How to access health informa tion online Indication:Left upper quadrant abdominal tenderness Start:29-Sep-2015 Instruction Type:Patient Education How to access health informa tion online - Detail Indication:Left upper quadrant abdominal tenderness Start:29-Sep-2015 Instruction Type:Patient Education Patient Instructions Indication:Left upper quadrant abdominal tenderness Start:29-Sep-2015 Instruction Type:Provider Instructions for Treatment How to access health informa tion online Indication:Hypertension, essential, benign Start:01-Nov-2014 Instruction Type:Patient Education How to access health informa tion online - Detail Indication:Hypertension, essential, benign Start:01-Nov-2014 Instruction Type:Patient Education Patient Instructions Indication:Hypertension, essential, benign Start:01-Nov-2014 Instruction Type:Provider Instructions for Treatment Patient Instructions Indication:Hypertension, essential, benign Start:04-Jan-2014 Instruction Type:Provider Instructions for Treatment How to access health informa tion online Indication:Hypertension, essential, benign Start:04-Jan-2014 Instruction Type:Patient Education How to access health informa tion online - Detail Indication:Hypertension, essential, benign Start:04-Jan-2014 Instruction Type:Patient Education obesity counseling Indication:BMI 38.0-38.9,adult Start:20-Dec-2012 Instruction Type:Provider Instructions for Treatment Patient Instructions Indication:Hypertension, essential, benign Start:20-Dec-2012 Instruction Type:Provider Instructions for Treatment Patient Instructions Indication:Obesity Start:24-Feb-2012 Instruction Type:Provider Instructions for Treatment Patient Instructions Indication:Obesity Start:07-Feb-2012 Instruction Type:Provider Instructions for Treatment Patient Instructions Indication:Obesity Start:25-Jan-2012 Instruction Type:Provider Instructions for Treatment Patient Instructionscont eat ing plan and exercise Indication:Obesity Start:13-Jan-2012 Instruction Type:Provider Instructions for Treatment Name Dates Details How to access health informa tion online Indication:Non-smoker Start:18-Dec-2019 Instruction Type:Patient Education How to access health informa tion online - Detail Indication:Non-smoker Start:18-Dec-2019 Instruction Type:Patient Education Patient Instructions Indication:Non-smoker Start:18-Dec-2019 Instruction Type:Provider Instructions for Treatment How to access health informa tion online Indication:Non-smoker Start:27-Nov-2019 Instruction Type:Patient Education How to access health informa tion online - Detail Indication:Non-smoker Start:27-Nov-2019 Instruction Type:Patient Education Patient Instructions Indication:Non-smoker Start:27-Nov-2019 Instruction Type:Provider Instructions for Treatment How to access health informa tion online Indication:Non-smoker Start:30-Aug-2019 Instruction Type:Patient Education How to access health informa tion online - Detail Indication:Non-smoker Start:30-Aug-2019 Instruction Type:Patient Education Patient Instructions Indication:Non-smoker Start:30-Aug-2019 Instruction Type:Provider Instructions for Treatment How to access health informa tion online Indication:Weight gain Start:14-Feb-2019 Instruction Type:Patient Education How to access health informa tion online - Detail Indication:Weight gain Start:14-Feb-2019 Instruction Type:Patient Education Patient Instructions Indication:Weight gain Start:14-Feb-2019 Instruction Type:Provider Instructions for Treatment How to access health informa tion online Indication:BMI 34.0-34.9,adult Start:22-Sep-2018 Instruction Type:Patient Education How to access health informa tion online - Detail Indication:BMI 34.0-34.9,adult Start:22-Sep-2018 Instruction Type:Patient Education Patient Instructions Indication:BMI 34.0-34.9,adult Start:22-Sep-2018 Instruction Type:Provider Instructions for Treatment How to access health informa tion online Indication:Non-smoker Start:06-Sep-2018 Instruction Type:Patient Education How to access health informa tion online - Detail Indication:Non-smoker Start:06-Sep-2018 Instruction Type:Patient Education Patient Instructions Indication:Non-smoker Start:06-Sep-2018 Instruction Type:Provider Instructions for Treatment How to access health informa tion online Indication:BMI 36.0-36.9,adult Start:25-Aug-2018 Instruction Type:Patient Education How to access health informa tion online - Detail Indication:BMI 36.0-36.9,adult Start:25-Aug-2018 Instruction Type:Patient Education Patient Instructions Indication:BMI 36.0-36.9,adult Start:25-Aug-2018 Instruction Type:Provider Instructions for Treatment How to access health informa tion online Indication:BMI 38.0-38.9,adult Start:31-Jul-2018 Instruction Type:Patient Education How to access health informa tion online - Detail Indication:BMI 38.0-38.9,adult Start:31-Jul-2018 Instruction Type:Patient Education Patient Instructions Indication:BMI 38.0-38.9,adult Start:31-Jul-2018 Instruction Type:Provider Instructions for Treatment How to access health informa tion online Indication:Non-smoker Start:23-Jun-2018 Instruction Type:Patient Education How to access health informa tion online - Detail Indication:Non-smoker Start:23-Jun-2018 Instruction Type:Patient Education Patient Instructions Indication:Non-smoker Start:23-Jun-2018 Instruction Type:Provider Instructions for Treatment How to access health informa tion online Indication:Non-smoker Start:16-Jun-2018 Instruction Type:Patient Education How to access health informa tion online - Detail Indication:Non-smoker Start:16-Jun-2018 Instruction Type:Patient Education Patient Instructions Indication:Non-smoker Start:16-Jun-2018 Instruction Type:Provider Instructions for Treatment How to access health informa tion online Indication:Non-smoker Start:08-Nov-2017 Instruction Type:Patient Education How to access health informa tion online - Detail Indication:Non-smoker Start:08-Nov-2017 Instruction Type:Patient Education Patient Instructions Indication:Non-smoker Start:08-Nov-2017 Instruction Type:Provider Instructions for Treatment How to access health informa tion online Indication:BMI 36.0-36.9,adult Start:30-Sep-2017 Instruction Type:Patient Education How to access health informa tion online - Detail Indication:BMI 36.0-36.9,adult Start:30-Sep-2017 Instruction Type:Patient Education Patient Instructions Indication:BMI 36.0-36.9,adult Start:30-Sep-2017 Instruction Type:Provider Instructions for Treatment How to access health informa tion online Indication:BMI 37.0-37.9, adult Start:23-Aug-2017 Instruction Type:Patient Education How to access health informa tion online - Detail Indication:BMI 37.0-37.9, adult Start:23-Aug-2017 Instruction Type:Patient Education Patient Instructions Indication:BMI 37.0-37.9, adult Start:23-Aug-2017 Instruction Type:Provider Instructions for Treatment How to access health informa tion online Indication:BMI 35.0-35.9,adult Start:06-May-2017 Instruction Type:Patient Education How to access health informa tion online - Detail Indication:BMI 35.0-35.9,adult Start:06-May-2017 Instruction Type:Patient Education Patient Instructions Indication:BMI 35.0-35.9,adult Start:06-May-2017 Instruction Type:Provider Instructions for Treatment How to access health informa tion online Indication:BMI 36.0-36.9,adult Start:11-Mar-2017 Instruction Type:Patient Education How to access health informa tion online - Detail Indication:BMI 36.0-36.9,adult Start:11-Mar-2017 Instruction Type:Patient Education Patient Instructions Indication:BMI 36.0-36.9,adult Start:11-Mar-2017 Instruction Type:Provider Instructions for Treatment How to access health informa tion online Indication:Hypertension, essential, benign Start:07-Feb-2017 Instruction Type:Patient Education How to access health informa tion online - Detail Indication:Hypertension, essential, benign Start:07-Feb-2017 Instruction Type:Patient Education Patient Instructions Indication:Hypertension, essential, benign Start:07-Feb-2017 Instruction Type:Provider Instructions for Treatment How to access health informa tion online Indication:Flu-like symptoms Start:02-Jun-2016 Instruction Type:Patient Education How to access health informa tion online - Detail Indication:Flu-like symptoms Start:02-Jun-2016 Instruction Type:Patient Education Patient Instructions Indication:Flu-like symptoms Start:02-Jun-2016 Instruction Type:Provider Instructions for Treatment Patient Instructions Indication:Depression, acute Start:21-May-2016 Instruction Type:Provider Instructions for Treatment Patient Instructions Indication:Depression, acute Start:07-Apr-2016 Instruction Type:Provider Instructions for Treatment How to access health informa tion online Indication:Left upper quadrant abdominal tenderness Start:29-Sep-2015 Instruction Type:Patient Education How to access health informa tion online - Detail Indication:Left upper quadrant abdominal tenderness Start:29-Sep-2015 Instruction Type:Patient Education Patient Instructions Indication:Left upper quadrant abdominal tenderness Start:29-Sep-2015 Instruction Type:Provider Instructions for Treatment How to access health informa tion online Indication:Hypertension, essential, benign Start:01-Nov-2014 Instruction Type:Patient Education How to access health informa tion online - Detail Indication:Hypertension, essential, benign Start:01-Nov-2014 Instruction Type:Patient Education Patient Instructions Indication:Hypertension, essential, benign Start:01-Nov-2014 Instruction Type:Provider Instructions for Treatment Patient Instructions Indication:Hypertension, essential, benign Start:04-Jan-2014 Instruction Type:Provider Instructions for Treatment How to access health informa tion online Indication:Hypertension, essential, benign Start:04-Jan-2014 Instruction Type:Patient Education How to access health informa tion online - Detail Indication:Hypertension, essential, benign Start:04-Jan-2014 Instruction Type:Patient Education obesity counseling Indication:BMI 38.0-38.9,adult Start:20-Dec-2012 Instruction Type:Provider Instructions for Treatment Patient Instructions Indication:Hypertension, essential, benign Start:20-Dec-2012 Instruction Type:Provider Instructions for Treatment Patient Instructions Indication:Obesity Start:24-Feb-2012 Instruction Type:Provider Instructions for Treatment Patient Instructions Indication:Obesity Start:07-Feb-2012 Instruction Type:Provider Instructions for Treatment Patient Instructions Indication:Obesity Start:25-Jan-2012 Instruction Type:Provider Instructions for Treatment Patient Instructionscont eat ing plan and exercise Indication:Obesity Start:13-Jan-2012 Instruction Type:Provider Instructions for Treatment Name Dates Details How to access health informa tion online Indication:Non-smoker Start:18-Dec-2019 Instruction Type:Patient Education How to access health informa tion online - Detail Indication:Non-smoker Start:18-Dec-2019 Instruction Type:Patient Education Patient Instructions Indication:Non-smoker Start:18-Dec-2019 Instruction Type:Provider Instructions for Treatment How to access health informa tion online Indication:Non-smoker Start:27-Nov-2019 Instruction Type:Patient Education How to access health informa tion online - Detail Indication:Non-smoker Start:27-Nov-2019 Instruction Type:Patient Education Patient Instructions Indication:Non-smoker Start:27-Nov-2019 Instruction Type:Provider Instructions for Treatment How to access health informa tion online Indication:Non-smoker Start:30-Aug-2019 Instruction Type:Patient Education How to access health informa tion online - Detail Indication:Non-smoker Start:30-Aug-2019 Instruction Type:Patient Education Patient Instructions Indication:Non-smoker Start:30-Aug-2019 Instruction Type:Provider Instructions for Treatment How to access health informa tion online Indication:Weight gain Start:14-Feb-2019 Instruction Type:Patient Education How to access health informa tion online - Detail Indication:Weight gain Start:14-Feb-2019 Instruction Type:Patient Education Patient Instructions Indication:Weight gain Start:14-Feb-2019 Instruction Type:Provider Instructions for Treatment How to access health informa tion online Indication:BMI 34.0-34.9,adult Start:22-Sep-2018 Instruction Type:Patient Education How to access health informa tion online - Detail Indication:BMI 34.0-34.9,adult Start:22-Sep-2018 Instruction Type:Patient Education Patient Instructions Indication:BMI 34.0-34.9,adult Start:22-Sep-2018 Instruction Type:Provider Instructions for Treatment How to access health informa tion online Indication:Non-smoker Start:06-Sep-2018 Instruction Type:Patient Education How to access health informa tion online - Detail Indication:Non-smoker Start:06-Sep-2018 Instruction Type:Patient Education Patient Instructions Indication:Non-smoker Start:06-Sep-2018 Instruction Type:Provider Instructions for Treatment How to access health informa tion online Indication:BMI 36.0-36.9,adult Start:25-Aug-2018 Instruction Type:Patient Education How to access health informa tion online - Detail Indication:BMI 36.0-36.9,adult Start:25-Aug-2018 Instruction Type:Patient Education Patient Instructions Indication:BMI 36.0-36.9,adult Start:25-Aug-2018 Instruction Type:Provider Instructions for Treatment How to access health informa tion online Indication:BMI 38.0-38.9,adult Start:31-Jul-2018 Instruction Type:Patient Education How to access health informa tion online - Detail Indication:BMI 38.0-38.9,adult Start:31-Jul-2018 Instruction Type:Patient Education Patient Instructions Indication:BMI 38.0-38.9,adult Start:31-Jul-2018 Instruction Type:Provider Instructions for Treatment How to access health informa tion online Indication:Non-smoker Start:23-Jun-2018 Instruction Type:Patient Education How to access health informa tion online - Detail Indication:Non-smoker Start:23-Jun-2018 Instruction Type:Patient Education Patient Instructions Indication:Non-smoker Start:23-Jun-2018 Instruction Type:Provider Instructions for Treatment How to access health informa tion online Indication:Non-smoker Start:16-Jun-2018 Instruction Type:Patient Education How to access health informa tion online - Detail Indication:Non-smoker Start:16-Jun-2018 Instruction Type:Patient Education Patient Instructions Indication:Non-smoker Start:16-Jun-2018 Instruction Type:Provider Instructions for Treatment How to access health informa tion online Indication:Non-smoker Start:08-Nov-2017 Instruction Type:Patient Education How to access health informa tion online - Detail Indication:Non-smoker Start:08-Nov-2017 Instruction Type:Patient Education Patient Instructions Indication:Non-smoker Start:08-Nov-2017 Instruction Type:Provider Instructions for Treatment How to access health informa tion online Indication:BMI 36.0-36.9,adult Start:30-Sep-2017 Instruction Type:Patient Education How to access health informa tion online - Detail Indication:BMI 36.0-36.9,adult Start:30-Sep-2017 Instruction Type:Patient Education Patient Instructions Indication:BMI 36.0-36.9,adult Start:30-Sep-2017 Instruction Type:Provider Instructions for Treatment How to access health informa tion online Indication:BMI 37.0-37.9, adult Start:23-Aug-2017 Instruction Type:Patient Education How to access health informa tion online - Detail Indication:BMI 37.0-37.9, adult Start:23-Aug-2017 Instruction Type:Patient Education Patient Instructions Indication:BMI 37.0-37.9, adult Start:23-Aug-2017 Instruction Type:Provider Instructions for Treatment How to access health informa tion online Indication:BMI 35.0-35.9,adult Start:06-May-2017 Instruction Type:Patient Education How to access health informa tion online - Detail Indication:BMI 35.0-35.9,adult Start:06-May-2017 Instruction Type:Patient Education Patient Instructions Indication:BMI 35.0-35.9,adult Start:06-May-2017 Instruction Type:Provider Instructions for Treatment How to access health informa tion online Indication:BMI 36.0-36.9,adult Start:11-Mar-2017 Instruction Type:Patient Education How to access health informa tion online - Detail Indication:BMI 36.0-36.9,adult Start:11-Mar-2017 Instruction Type:Patient Education Patient Instructions Indication:BMI 36.0-36.9,adult Start:11-Mar-2017 Instruction Type:Provider Instructions for Treatment How to access health informa tion online Indication:Hypertension, essential, benign Start:07-Feb-2017 Instruction Type:Patient Education How to access health informa tion online - Detail Indication:Hypertension, essential, benign Start:07-Feb-2017 Instruction Type:Patient Education Patient Instructions Indication:Hypertension, essential, benign Start:07-Feb-2017 Instruction Type:Provider Instructions for Treatment How to access health informa tion online Indication:Flu-like symptoms Start:02-Jun-2016 Instruction Type:Patient Education How to access health informa tion online - Detail Indication:Flu-like symptoms Start:02-Jun-2016 Instruction Type:Patient Education Patient Instructions Indication:Flu-like symptoms Start:02-Jun-2016 Instruction Type:Provider Instructions for Treatment Patient Instructions Indication:Depression, acute Start:21-May-2016 Instruction Type:Provider Instructions for Treatment Patient Instructions Indication:Depression, acute Start:07-Apr-2016 Instruction Type:Provider Instructions for Treatment How to access health informa tion online Indication:Left upper quadrant abdominal tenderness Start:29-Sep-2015 Instruction Type:Patient Education How to access health informa tion online - Detail Indication:Left upper quadrant abdominal tenderness Start:29-Sep-2015 Instruction Type:Patient Education Patient Instructions Indication:Left upper quadrant abdominal tenderness Start:29-Sep-2015 Instruction Type:Provider Instructions for Treatment How to access health informa tion online Indication:Hypertension, essential, benign Start:01-Nov-2014 Instruction Type:Patient Education How to access health informa tion online - Detail Indication:Hypertension, essential, benign Start:01-Nov-2014 Instruction Type:Patient Education Patient Instructions Indication:Hypertension, essential, benign Start:01-Nov-2014 Instruction Type:Provider Instructions for Treatment Patient Instructions Indication:Hypertension, essential, benign Start:04-Jan-2014 Instruction Type:Provider Instructions for Treatment How to access health informa tion online Indication:Hypertension, essential, benign Start:04-Jan-2014 Instruction Type:Patient Education How to access health informa tion online - Detail Indication:Hypertension, essential, benign Start:04-Jan-2014 Instruction Type:Patient Education obesity counseling Indication:BMI 38.0-38.9,adult Start:20-Dec-2012 Instruction Type:Provider Instructions for Treatment Patient Instructions Indication:Hypertension, essential, benign Start:20-Dec-2012 Instruction Type:Provider Instructions for Treatment Patient Instructions Indication:Obesity Start:24-Feb-2012 Instruction Type:Provider Instructions for Treatment Patient Instructions Indication:Obesity Start:07-Feb-2012 Instruction Type:Provider Instructions for Treatment Patient Instructions Indication:Obesity Start:25-Jan-2012 Instruction Type:Provider Instructions for Treatment Patient Instructionscont eat ing plan and exercise Indication:Obesity Start:13-Jan-2012 Instruction Type:Provider Instructions for Treatment Name Dates Details How to access health informa tion online Indication:Non-smoker Start:21-Feb-2020 Instruction Type:Patient Education How to access health informa tion online - Detail Indication:Non-smoker Start:21-Feb-2020 Instruction Type:Patient Education Patient Instructions Indication:Non-smoker Start:21-Feb-2020 Instruction Type:Provider Instructions for Treatment How to access health informa tion online Indication:Non-smoker Start:18-Dec-2019 Instruction Type:Patient Education How to access health informa tion online - Detail Indication:Non-smoker Start:18-Dec-2019 Instruction Type:Patient Education Patient Instructions Indication:Non-smoker Start:18-Dec-2019 Instruction Type:Provider Instructions for Treatment How to access health informa tion online Indication:Non-smoker Start:27-Nov-2019 Instruction Type:Patient Education How to access health informa tion online - Detail Indication:Non-smoker Start:27-Nov-2019 Instruction Type:Patient Education Patient Instructions Indication:Non-smoker Start:27-Nov-2019 Instruction Type:Provider Instructions for Treatment How to access health informa tion online Indication:Non-smoker Start:30-Aug-2019 Instruction Type:Patient Education How to access health informa tion online - Detail Indication:Non-smoker Start:30-Aug-2019 Instruction Type:Patient Education Patient Instructions Indication:Non-smoker Start:30-Aug-2019 Instruction Type:Provider Instructions for Treatment How to access health informa tion online Indication:Weight gain Start:14-Feb-2019 Instruction Type:Patient Education How to access health informa tion online - Detail Indication:Weight gain Start:14-Feb-2019 Instruction Type:Patient Education Patient Instructions Indication:Weight gain Start:14-Feb-2019 Instruction Type:Provider Instructions for Treatment How to access health informa tion online Indication:BMI 34.0-34.9,adult Start:22-Sep-2018 Instruction Type:Patient Education How to access health informa tion online - Detail Indication:BMI 34.0-34.9,adult Start:22-Sep-2018 Instruction Type:Patient Education Patient Instructions Indication:BMI 34.0-34.9,adult Start:22-Sep-2018 Instruction Type:Provider Instructions for Treatment How to access health informa tion online Indication:Non-smoker Start:06-Sep-2018 Instruction Type:Patient Education How to access health informa tion online - Detail Indication:Non-smoker Start:06-Sep-2018 Instruction Type:Patient Education Patient Instructions Indication:Non-smoker Start:06-Sep-2018 Instruction Type:Provider Instructions for Treatment How to access health informa tion online Indication:BMI 36.0-36.9,adult Start:25-Aug-2018 Instruction Type:Patient Education How to access health informa tion online - Detail Indication:BMI 36.0-36.9,adult Start:25-Aug-2018 Instruction Type:Patient Education Patient Instructions Indication:BMI 36.0-36.9,adult Start:25-Aug-2018 Instruction Type:Provider Instructions for Treatment How to access health informa tion online Indication:BMI 38.0-38.9,adult Start:31-Jul-2018 Instruction Type:Patient Education How to access health informa tion online - Detail Indication:BMI 38.0-38.9,adult Start:31-Jul-2018 Instruction Type:Patient Education Patient Instructions Indication:BMI 38.0-38.9,adult Start:31-Jul-2018 Instruction Type:Provider Instructions for Treatment How to access health informa tion online Indication:Non-smoker Start:23-Jun-2018 Instruction Type:Patient Education How to access health informa tion online - Detail Indication:Non-smoker Start:23-Jun-2018 Instruction Type:Patient Education Patient Instructions Indication:Non-smoker Start:23-Jun-2018 Instruction Type:Provider Instructions for Treatment How to access health informa tion online Indication:Non-smoker Start:16-Jun-2018 Instruction Type:Patient Education How to access health informa tion online - Detail Indication:Non-smoker Start:16-Jun-2018 Instruction Type:Patient Education Patient Instructions Indication:Non-smoker Start:16-Jun-2018 Instruction Type:Provider Instructions for Treatment How to access health informa tion online Indication:Non-smoker Start:08-Nov-2017 Instruction Type:Patient Education How to access health informa tion online - Detail Indication:Non-smoker Start:08-Nov-2017 Instruction Type:Patient Education Patient Instructions Indication:Non-smoker Start:08-Nov-2017 Instruction Type:Provider Instructions for Treatment How to access health informa tion online Indication:BMI 36.0-36.9,adult Start:30-Sep-2017 Instruction Type:Patient Education How to access health informa tion online - Detail Indication:BMI 36.0-36.9,adult Start:30-Sep-2017 Instruction Type:Patient Education Patient Instructions Indication:BMI 36.0-36.9,adult Start:30-Sep-2017 Instruction Type:Provider Instructions for Treatment How to access health informa tion online Indication:BMI 37.0-37.9, adult Start:23-Aug-2017 Instruction Type:Patient Education How to access health informa tion online - Detail Indication:BMI 37.0-37.9, adult Start:23-Aug-2017 Instruction Type:Patient Education Patient Instructions Indication:BMI 37.0-37.9, adult Start:23-Aug-2017 Instruction Type:Provider Instructions for Treatment How to access health informa tion online Indication:BMI 35.0-35.9,adult Start:06-May-2017 Instruction Type:Patient Education How to access health informa tion online - Detail Indication:BMI 35.0-35.9,adult Start:06-May-2017 Instruction Type:Patient Education Patient Instructions Indication:BMI 35.0-35.9,adult Start:06-May-2017 Instruction Type:Provider Instructions for Treatment How to access health informa tion online Indication:BMI 36.0-36.9,adult Start:11-Mar-2017 Instruction Type:Patient Education How to access health informa tion online - Detail Indication:BMI 36.0-36.9,adult Start:11-Mar-2017 Instruction Type:Patient Education Patient Instructions Indication:BMI 36.0-36.9,adult Start:11-Mar-2017 Instruction Type:Provider Instructions for Treatment How to access health informa tion online Indication:Hypertension, essential, benign Start:07-Feb-2017 Instruction Type:Patient Education How to access health informa tion online - Detail Indication:Hypertension, essential, benign Start:07-Feb-2017 Instruction Type:Patient Education Patient Instructions Indication:Hypertension, essential, benign Start:07-Feb-2017 Instruction Type:Provider Instructions for Treatment How to access health informa tion online Indication:Flu-like symptoms Start:02-Jun-2016 Instruction Type:Patient Education How to access health informa tion online - Detail Indication:Flu-like symptoms Start:02-Jun-2016 Instruction Type:Patient Education Patient Instructions Indication:Flu-like symptoms Start:02-Jun-2016 Instruction Type:Provider Instructions for Treatment Patient Instructions Indication:Depression, acute Start:21-May-2016 Instruction Type:Provider Instructions for Treatment Patient Instructions Indication:Depression, acute Start:07-Apr-2016 Instruction Type:Provider Instructions for Treatment How to access health informa tion online Indication:Left upper quadrant abdominal tenderness Start:29-Sep-2015 Instruction Type:Patient Education How to access health informa tion online - Detail Indication:Left upper quadrant abdominal tenderness Start:29-Sep-2015 Instruction Type:Patient Education Patient Instructions Indication:Left upper quadrant abdominal tenderness Start:29-Sep-2015 Instruction Type:Provider Instructions for Treatment How to access health informa tion online Indication:Hypertension, essential, benign Start:01-Nov-2014 Instruction Type:Patient Education How to access health informa tion online - Detail Indication:Hypertension, essential, benign Start:01-Nov-2014 Instruction Type:Patient Education Patient Instructions Indication:Hypertension, essential, benign Start:01-Nov-2014 Instruction Type:Provider Instructions for Treatment Patient Instructions Indication:Hypertension, essential, benign Start:04-Jan-2014 Instruction Type:Provider Instructions for Treatment How to access health informa tion online Indication:Hypertension, essential, benign Start:04-Jan-2014 Instruction Type:Patient Education How to access health informa tion online - Detail Indication:Hypertension, essential, benign Start:04-Jan-2014 Instruction Type:Patient Education obesity counseling Indication:BMI 38.0-38.9,adult Start:20-Dec-2012 Instruction Type:Provider Instructions for Treatment Patient Instructions Indication:Hypertension, essential, benign Start:20-Dec-2012 Instruction Type:Provider Instructions for Treatment Patient Instructions Indication:Obesity Start:24-Feb-2012 Instruction Type:Provider Instructions for Treatment Patient Instructions Indication:Obesity Start:07-Feb-2012 Instruction Type:Provider Instructions for Treatment Patient Instructions Indication:Obesity Start:25-Jan-2012 Instruction Type:Provider Instructions for Treatment Patient Instructionscont eat ing plan and exercise Indication:Obesity Start:13-Jan-2012 Instruction Type:Provider Instructions for Treatment Name Dates Details How to access health informa tion online Indication:Non-smoker Start:21-Feb-2020 Instruction Type:Patient Education How to access health informa tion online - Detail Indication:Non-smoker Start:21-Feb-2020 Instruction Type:Patient Education Patient Instructions Indication:Non-smoker Start:21-Feb-2020 Instruction Type:Provider Instructions for Treatment How to access health informa tion online Indication:Non-smoker Start:18-Dec-2019 Instruction Type:Patient Education How to access health informa tion online - Detail Indication:Non-smoker Start:18-Dec-2019 Instruction Type:Patient Education Patient Instructions Indication:Non-smoker Start:18-Dec-2019 Instruction Type:Provider Instructions for Treatment How to access health informa tion online Indication:Non-smoker Start:27-Nov-2019 Instruction Type:Patient Education How to access health informa tion online - Detail Indication:Non-smoker Start:27-Nov-2019 Instruction Type:Patient Education Patient Instructions Indication:Non-smoker Start:27-Nov-2019 Instruction Type:Provider Instructions for Treatment How to access health informa tion online Indication:Non-smoker Start:30-Aug-2019 Instruction Type:Patient Education How to access health informa tion online - Detail Indication:Non-smoker Start:30-Aug-2019 Instruction Type:Patient Education Patient Instructions Indication:Non-smoker Start:30-Aug-2019 Instruction Type:Provider Instructions for Treatment How to access health informa tion online Indication:Weight gain Start:14-Feb-2019 Instruction Type:Patient Education How to access health informa tion online - Detail Indication:Weight gain Start:14-Feb-2019 Instruction Type:Patient Education Patient Instructions Indication:Weight gain Start:14-Feb-2019 Instruction Type:Provider Instructions for Treatment How to access health informa tion online Indication:BMI 34.0-34.9,adult Start:22-Sep-2018 Instruction Type:Patient Education How to access health informa tion online - Detail Indication:BMI 34.0-34.9,adult Start:22-Sep-2018 Instruction Type:Patient Education Patient Instructions Indication:BMI 34.0-34.9,adult Start:22-Sep-2018 Instruction Type:Provider Instructions for Treatment How to access health informa tion online Indication:Non-smoker Start:06-Sep-2018 Instruction Type:Patient Education How to access health informa tion online - Detail Indication:Non-smoker Start:06-Sep-2018 Instruction Type:Patient Education Patient Instructions Indication:Non-smoker Start:06-Sep-2018 Instruction Type:Provider Instructions for Treatment How to access health informa tion online Indication:BMI 36.0-36.9,adult Start:25-Aug-2018 Instruction Type:Patient Education How to access health informa tion online - Detail Indication:BMI 36.0-36.9,adult Start:25-Aug-2018 Instruction Type:Patient Education Patient Instructions Indication:BMI 36.0-36.9,adult Start:25-Aug-2018 Instruction Type:Provider Instructions for Treatment How to access health informa tion online Indication:BMI 38.0-38.9,adult Start:31-Jul-2018 Instruction Type:Patient Education How to access health informa tion online - Detail Indication:BMI 38.0-38.9,adult Start:31-Jul-2018 Instruction Type:Patient Education Patient Instructions Indication:BMI 38.0-38.9,adult Start:31-Jul-2018 Instruction Type:Provider Instructions for Treatment How to access health informa tion online Indication:Non-smoker Start:23-Jun-2018 Instruction Type:Patient Education How to access health informa tion online - Detail Indication:Non-smoker Start:23-Jun-2018 Instruction Type:Patient Education Patient Instructions Indication:Non-smoker Start:23-Jun-2018 Instruction Type:Provider Instructions for Treatment How to access health informa tion online Indication:Non-smoker Start:16-Jun-2018 Instruction Type:Patient Education How to access health informa tion online - Detail Indication:Non-smoker Start:16-Jun-2018 Instruction Type:Patient Education Patient Instructions Indication:Non-smoker Start:16-Jun-2018 Instruction Type:Provider Instructions for Treatment How to access health informa tion online Indication:Non-smoker Start:08-Nov-2017 Instruction Type:Patient Education How to access health informa tion online - Detail Indication:Non-smoker Start:08-Nov-2017 Instruction Type:Patient Education Patient Instructions Indication:Non-smoker Start:08-Nov-2017 Instruction Type:Provider Instructions for Treatment How to access health informa tion online Indication:BMI 36.0-36.9,adult Start:30-Sep-2017 Instruction Type:Patient Education How to access health informa tion online - Detail Indication:BMI 36.0-36.9,adult Start:30-Sep-2017 Instruction Type:Patient Education Patient Instructions Indication:BMI 36.0-36.9,adult Start:30-Sep-2017 Instruction Type:Provider Instructions for Treatment How to access health informa tion online Indication:BMI 37.0-37.9, adult Start:23-Aug-2017 Instruction Type:Patient Education How to access health informa tion online - Detail Indication:BMI 37.0-37.9, adult Start:23-Aug-2017 Instruction Type:Patient Education Patient Instructions Indication:BMI 37.0-37.9, adult Start:23-Aug-2017 Instruction Type:Provider Instructions for Treatment How to access health informa tion online Indication:BMI 35.0-35.9,adult Start:06-May-2017 Instruction Type:Patient Education How to access health informa tion online - Detail Indication:BMI 35.0-35.9,adult Start:06-May-2017 Instruction Type:Patient Education Patient Instructions Indication:BMI 35.0-35.9,adult Start:06-May-2017 Instruction Type:Provider Instructions for Treatment How to access health informa tion online Indication:BMI 36.0-36.9,adult Start:11-Mar-2017 Instruction Type:Patient Education How to access health informa tion online - Detail Indication:BMI 36.0-36.9,adult Start:11-Mar-2017 Instruction Type:Patient Education Patient Instructions Indication:BMI 36.0-36.9,adult Start:11-Mar-2017 Instruction Type:Provider Instructions for Treatment How to access health informa tion online Indication:Hypertension, essential, benign Start:07-Feb-2017 Instruction Type:Patient Education How to access health informa tion online - Detail Indication:Hypertension, essential, benign Start:07-Feb-2017 Instruction Type:Patient Education Patient Instructions Indication:Hypertension, essential, benign Start:07-Feb-2017 Instruction Type:Provider Instructions for Treatment How to access health informa tion online Indication:Flu-like symptoms Start:02-Jun-2016 Instruction Type:Patient Education How to access health informa tion online - Detail Indication:Flu-like symptoms Start:02-Jun-2016 Instruction Type:Patient Education Patient Instructions Indication:Flu-like symptoms Start:02-Jun-2016 Instruction Type:Provider Instructions for Treatment Patient Instructions Indication:Depression, acute Start:21-May-2016 Instruction Type:Provider Instructions for Treatment Patient Instructions Indication:Depression, acute Start:07-Apr-2016 Instruction Type:Provider Instructions for Treatment How to access health informa tion online Indication:Left upper quadrant abdominal tenderness Start:29-Sep-2015 Instruction Type:Patient Education How to access health informa tion online - Detail Indication:Left upper quadrant abdominal tenderness Start:29-Sep-2015 Instruction Type:Patient Education Patient Instructions Indication:Left upper quadrant abdominal tenderness Start:29-Sep-2015 Instruction Type:Provider Instructions for Treatment How to access health informa tion online Indication:Hypertension, essential, benign Start:01-Nov-2014 Instruction Type:Patient Education How to access health informa tion online - Detail Indication:Hypertension, essential, benign Start:01-Nov-2014 Instruction Type:Patient Education Patient Instructions Indication:Hypertension, essential, benign Start:01-Nov-2014 Instruction Type:Provider Instructions for Treatment Patient Instructions Indication:Hypertension, essential, benign Start:04-Jan-2014 Instruction Type:Provider Instructions for Treatment How to access health informa tion online Indication:Hypertension, essential, benign Start:04-Jan-2014 Instruction Type:Patient Education How to access health informa tion online - Detail Indication:Hypertension, essential, benign Start:04-Jan-2014 Instruction Type:Patient Education obesity counseling Indication:BMI 38.0-38.9,adult Start:20-Dec-2012 Instruction Type:Provider Instructions for Treatment Patient Instructions Indication:Hypertension, essential, benign Start:20-Dec-2012 Instruction Type:Provider Instructions for Treatment Patient Instructions Indication:Obesity Start:24-Feb-2012 Instruction Type:Provider Instructions for Treatment Patient Instructions Indication:Obesity Start:07-Feb-2012 Instruction Type:Provider Instructions for Treatment Patient Instructions Indication:Obesity Start:25-Jan-2012 Instruction Type:Provider Instructions for Treatment Patient Instructionscont eat ing plan and exercise Indication:Obesity Start:13-Jan-2012 Instruction Type:Provider Instructions for Treatment Name Dates Details How to access health informa tion online Indication:Non-smoker Start:21-Feb-2020 Instruction Type:Patient Education How to access health informa tion online - Detail Indication:Non-smoker Start:21-Feb-2020 Instruction Type:Patient Education Patient Instructions Indication:Non-smoker Start:21-Feb-2020 Instruction Type:Provider Instructions for Treatment How to access health informa tion online Indication:Non-smoker Start:18-Dec-2019 Instruction Type:Patient Education How to access health informa tion online - Detail Indication:Non-smoker Start:18-Dec-2019 Instruction Type:Patient Education Patient Instructions Indication:Non-smoker Start:18-Dec-2019 Instruction Type:Provider Instructions for Treatment How to access health informa tion online Indication:Non-smoker Start:27-Nov-2019 Instruction Type:Patient Education How to access health informa tion online - Detail Indication:Non-smoker Start:27-Nov-2019 Instruction Type:Patient Education Patient Instructions Indication:Non-smoker Start:27-Nov-2019 Instruction Type:Provider Instructions for Treatment How to access health informa tion online Indication:Non-smoker Start:30-Aug-2019 Instruction Type:Patient Education How to access health informa tion online - Detail Indication:Non-smoker Start:30-Aug-2019 Instruction Type:Patient Education Patient Instructions Indication:Non-smoker Start:30-Aug-2019 Instruction Type:Provider Instructions for Treatment How to access health informa tion online Indication:Weight gain Start:14-Feb-2019 Instruction Type:Patient Education How to access health informa tion online - Detail Indication:Weight gain Start:14-Feb-2019 Instruction Type:Patient Education Patient Instructions Indication:Weight gain Start:14-Feb-2019 Instruction Type:Provider Instructions for Treatment How to access health informa tion online Indication:BMI 34.0-34.9,adult Start:22-Sep-2018 Instruction Type:Patient Education How to access health informa tion online - Detail Indication:BMI 34.0-34.9,adult Start:22-Sep-2018 Instruction Type:Patient Education Patient Instructions Indication:BMI 34.0-34.9,adult Start:22-Sep-2018 Instruction Type:Provider Instructions for Treatment How to access health informa tion online Indication:Non-smoker Start:06-Sep-2018 Instruction Type:Patient Education How to access health informa tion online - Detail Indication:Non-smoker Start:06-Sep-2018 Instruction Type:Patient Education Patient Instructions Indication:Non-smoker Start:06-Sep-2018 Instruction Type:Provider Instructions for Treatment How to access health informa tion online Indication:BMI 36.0-36.9,adult Start:25-Aug-2018 Instruction Type:Patient Education How to access health informa tion online - Detail Indication:BMI 36.0-36.9,adult Start:25-Aug-2018 Instruction Type:Patient Education Patient Instructions Indication:BMI 36.0-36.9,adult Start:25-Aug-2018 Instruction Type:Provider Instructions for Treatment How to access health informa tion online Indication:BMI 38.0-38.9,adult Start:31-Jul-2018 Instruction Type:Patient Education How to access health informa tion online - Detail Indication:BMI 38.0-38.9,adult Start:31-Jul-2018 Instruction Type:Patient Education Patient Instructions Indication:BMI 38.0-38.9,adult Start:31-Jul-2018 Instruction Type:Provider Instructions for Treatment How to access health informa tion online Indication:Non-smoker Start:23-Jun-2018 Instruction Type:Patient Education How to access health informa tion online - Detail Indication:Non-smoker Start:23-Jun-2018 Instruction Type:Patient Education Patient Instructions Indication:Non-smoker Start:23-Jun-2018 Instruction Type:Provider Instructions for Treatment How to access health informa tion online Indication:Non-smoker Start:16-Jun-2018 Instruction Type:Patient Education How to access health informa tion online - Detail Indication:Non-smoker Start:16-Jun-2018 Instruction Type:Patient Education Patient Instructions Indication:Non-smoker Start:16-Jun-2018 Instruction Type:Provider Instructions for Treatment How to access health informa tion online Indication:Non-smoker Start:08-Nov-2017 Instruction Type:Patient Education How to access health informa tion online - Detail Indication:Non-smoker Start:08-Nov-2017 Instruction Type:Patient Education Patient Instructions Indication:Non-smoker Start:08-Nov-2017 Instruction Type:Provider Instructions for Treatment How to access health informa tion online Indication:BMI 36.0-36.9,adult Start:30-Sep-2017 Instruction Type:Patient Education How to access health informa tion online - Detail Indication:BMI 36.0-36.9,adult Start:30-Sep-2017 Instruction Type:Patient Education Patient Instructions Indication:BMI 36.0-36.9,adult Start:30-Sep-2017 Instruction Type:Provider Instructions for Treatment How to access health informa tion online Indication:BMI 37.0-37.9, adult Start:23-Aug-2017 Instruction Type:Patient Education How to access health informa tion online - Detail Indication:BMI 37.0-37.9, adult Start:23-Aug-2017 Instruction Type:Patient Education Patient Instructions Indication:BMI 37.0-37.9, adult Start:23-Aug-2017 Instruction Type:Provider Instructions for Treatment How to access health informa tion online Indication:BMI 35.0-35.9,adult Start:06-May-2017 Instruction Type:Patient Education How to access health informa tion online - Detail Indication:BMI 35.0-35.9,adult Start:06-May-2017 Instruction Type:Patient Education Patient Instructions Indication:BMI 35.0-35.9,adult Start:06-May-2017 Instruction Type:Provider Instructions for Treatment How to access health informa tion online Indication:BMI 36.0-36.9,adult Start:11-Mar-2017 Instruction Type:Patient Education How to access health informa tion online - Detail Indication:BMI 36.0-36.9,adult Start:11-Mar-2017 Instruction Type:Patient Education Patient Instructions Indication:BMI 36.0-36.9,adult Start:11-Mar-2017 Instruction Type:Provider Instructions for Treatment How to access health informa tion online Indication:Hypertension, essential, benign Start:07-Feb-2017 Instruction Type:Patient Education How to access health informa tion online - Detail Indication:Hypertension, essential, benign Start:07-Feb-2017 Instruction Type:Patient Education Patient Instructions Indication:Hypertension, essential, benign Start:07-Feb-2017 Instruction Type:Provider Instructions for Treatment How to access health informa tion online Indication:Flu-like symptoms Start:02-Jun-2016 Instruction Type:Patient Education How to access health informa tion online - Detail Indication:Flu-like symptoms Start:02-Jun-2016 Instruction Type:Patient Education Patient Instructions Indication:Flu-like symptoms Start:02-Jun-2016 Instruction Type:Provider Instructions for Treatment Patient Instructions Indication:Depression, acute Start:21-May-2016 Instruction Type:Provider Instructions for Treatment Patient Instructions Indication:Depression, acute Start:07-Apr-2016 Instruction Type:Provider Instructions for Treatment How to access health informa tion online Indication:Left upper quadrant abdominal tenderness Start:29-Sep-2015 Instruction Type:Patient Education How to access health informa tion online - Detail Indication:Left upper quadrant abdominal tenderness Start:29-Sep-2015 Instruction Type:Patient Education Patient Instructions Indication:Left upper quadrant abdominal tenderness Start:29-Sep-2015 Instruction Type:Provider Instructions for Treatment How to access health informa tion online Indication:Hypertension, essential, benign Start:01-Nov-2014 Instruction Type:Patient Education How to access health informa tion online - Detail Indication:Hypertension, essential, benign Start:01-Nov-2014 Instruction Type:Patient Education Patient Instructions Indication:Hypertension, essential, benign Start:01-Nov-2014 Instruction Type:Provider Instructions for Treatment Patient Instructions Indication:Hypertension, essential, benign Start:04-Jan-2014 Instruction Type:Provider Instructions for Treatment How to access health informa tion online Indication:Hypertension, essential, benign Start:04-Jan-2014 Instruction Type:Patient Education How to access health informa tion online - Detail Indication:Hypertension, essential, benign Start:04-Jan-2014 Instruction Type:Patient Education obesity counseling Indication:BMI 38.0-38.9,adult Start:20-Dec-2012 Instruction Type:Provider Instructions for Treatment Patient Instructions Indication:Hypertension, essential, benign Start:20-Dec-2012 Instruction Type:Provider Instructions for Treatment Patient Instructions Indication:Obesity Start:24-Feb-2012 Instruction Type:Provider Instructions for Treatment Patient Instructions Indication:Obesity Start:07-Feb-2012 Instruction Type:Provider Instructions for Treatment Patient Instructions Indication:Obesity Start:25-Jan-2012 Instruction Type:Provider Instructions for Treatment Patient Instructionscont eat ing plan and exercise Indication:Obesity Start:13-Jan-2012 Instruction Type:Provider Instructions for Treatment Name Dates Details How to access health informa tion online Indication:Non-smoker Start:21-Feb-2020 Instruction Type:Patient Education How to access health informa tion online - Detail Indication:Non-smoker Start:21-Feb-2020 Instruction Type:Patient Education Patient Instructions Indication:Non-smoker Start:21-Feb-2020 Instruction Type:Provider Instructions for Treatment How to access health informa tion online Indication:Non-smoker Start:18-Dec-2019 Instruction Type:Patient Education How to access health informa tion online - Detail Indication:Non-smoker Start:18-Dec-2019 Instruction Type:Patient Education Patient Instructions Indication:Non-smoker Start:18-Dec-2019 Instruction Type:Provider Instructions for Treatment How to access health informa tion online Indication:Non-smoker Start:27-Nov-2019 Instruction Type:Patient Education How to access health informa tion online - Detail Indication:Non-smoker Start:27-Nov-2019 Instruction Type:Patient Education Patient Instructions Indication:Non-smoker Start:27-Nov-2019 Instruction Type:Provider Instructions for Treatment How to access health informa tion online Indication:Non-smoker Start:30-Aug-2019 Instruction Type:Patient Education How to access health informa tion online - Detail Indication:Non-smoker Start:30-Aug-2019 Instruction Type:Patient Education Patient Instructions Indication:Non-smoker Start:30-Aug-2019 Instruction Type:Provider Instructions for Treatment How to access health informa tion online Indication:Weight gain Start:14-Feb-2019 Instruction Type:Patient Education How to access health informa tion online - Detail Indication:Weight gain Start:14-Feb-2019 Instruction Type:Patient Education Patient Instructions Indication:Weight gain Start:14-Feb-2019 Instruction Type:Provider Instructions for Treatment How to access health informa tion online Indication:BMI 34.0-34.9,adult Start:22-Sep-2018 Instruction Type:Patient Education How to access health informa tion online - Detail Indication:BMI 34.0-34.9,adult Start:22-Sep-2018 Instruction Type:Patient Education Patient Instructions Indication:BMI 34.0-34.9,adult Start:22-Sep-2018 Instruction Type:Provider Instructions for Treatment How to access health informa tion online Indication:Non-smoker Start:06-Sep-2018 Instruction Type:Patient Education How to access health informa tion online - Detail Indication:Non-smoker Start:06-Sep-2018 Instruction Type:Patient Education Patient Instructions Indication:Non-smoker Start:06-Sep-2018 Instruction Type:Provider Instructions for Treatment How to access health informa tion online Indication:BMI 36.0-36.9,adult Start:25-Aug-2018 Instruction Type:Patient Education How to access health informa tion online - Detail Indication:BMI 36.0-36.9,adult Start:25-Aug-2018 Instruction Type:Patient Education Patient Instructions Indication:BMI 36.0-36.9,adult Start:25-Aug-2018 Instruction Type:Provider Instructions for Treatment How to access health informa tion online Indication:BMI 38.0-38.9,adult Start:31-Jul-2018 Instruction Type:Patient Education How to access health informa tion online - Detail Indication:BMI 38.0-38.9,adult Start:31-Jul-2018 Instruction Type:Patient Education Patient Instructions Indication:BMI 38.0-38.9,adult Start:31-Jul-2018 Instruction Type:Provider Instructions for Treatment How to access health informa tion online Indication:Non-smoker Start:23-Jun-2018 Instruction Type:Patient Education How to access health informa tion online - Detail Indication:Non-smoker Start:23-Jun-2018 Instruction Type:Patient Education Patient Instructions Indication:Non-smoker Start:23-Jun-2018 Instruction Type:Provider Instructions for Treatment How to access health informa tion online Indication:Non-smoker Start:16-Jun-2018 Instruction Type:Patient Education How to access health informa tion online - Detail Indication:Non-smoker Start:16-Jun-2018 Instruction Type:Patient Education Patient Instructions Indication:Non-smoker Start:16-Jun-2018 Instruction Type:Provider Instructions for Treatment How to access health informa tion online Indication:Non-smoker Start:08-Nov-2017 Instruction Type:Patient Education How to access health informa tion online - Detail Indication:Non-smoker Start:08-Nov-2017 Instruction Type:Patient Education Patient Instructions Indication:Non-smoker Start:08-Nov-2017 Instruction Type:Provider Instructions for Treatment How to access health informa tion online Indication:BMI 36.0-36.9,adult Start:30-Sep-2017 Instruction Type:Patient Education How to access health informa tion online - Detail Indication:BMI 36.0-36.9,adult Start:30-Sep-2017 Instruction Type:Patient Education Patient Instructions Indication:BMI 36.0-36.9,adult Start:30-Sep-2017 Instruction Type:Provider Instructions for Treatment How to access health informa tion online Indication:BMI 37.0-37.9, adult Start:23-Aug-2017 Instruction Type:Patient Education How to access health informa tion online - Detail Indication:BMI 37.0-37.9, adult Start:23-Aug-2017 Instruction Type:Patient Education Patient Instructions Indication:BMI 37.0-37.9, adult Start:23-Aug-2017 Instruction Type:Provider Instructions for Treatment How to access health informa tion online Indication:BMI 35.0-35.9,adult Start:06-May-2017 Instruction Type:Patient Education How to access health informa tion online - Detail Indication:BMI 35.0-35.9,adult Start:06-May-2017 Instruction Type:Patient Education Patient Instructions Indication:BMI 35.0-35.9,adult Start:06-May-2017 Instruction Type:Provider Instructions for Treatment How to access health informa tion online Indication:BMI 36.0-36.9,adult Start:11-Mar-2017 Instruction Type:Patient Education How to access health informa tion online - Detail Indication:BMI 36.0-36.9,adult Start:11-Mar-2017 Instruction Type:Patient Education Patient Instructions Indication:BMI 36.0-36.9,adult Start:11-Mar-2017 Instruction Type:Provider Instructions for Treatment How to access health informa tion online Indication:Hypertension, essential, benign Start:07-Feb-2017 Instruction Type:Patient Education How to access health informa tion online - Detail Indication:Hypertension, essential, benign Start:07-Feb-2017 Instruction Type:Patient Education Patient Instructions Indication:Hypertension, essential, benign Start:07-Feb-2017 Instruction Type:Provider Instructions for Treatment How to access health informa tion online Indication:Flu-like symptoms Start:02-Jun-2016 Instruction Type:Patient Education How to access health informa tion online - Detail Indication:Flu-like symptoms Start:02-Jun-2016 Instruction Type:Patient Education Patient Instructions Indication:Flu-like symptoms Start:02-Jun-2016 Instruction Type:Provider Instructions for Treatment Patient Instructions Indication:Depression, acute Start:21-May-2016 Instruction Type:Provider Instructions for Treatment Patient Instructions Indication:Depression, acute Start:07-Apr-2016 Instruction Type:Provider Instructions for Treatment How to access health informa tion online Indication:Left upper quadrant abdominal tenderness Start:29-Sep-2015 Instruction Type:Patient Education How to access health informa tion online - Detail Indication:Left upper quadrant abdominal tenderness Start:29-Sep-2015 Instruction Type:Patient Education Patient Instructions Indication:Left upper quadrant abdominal tenderness Start:29-Sep-2015 Instruction Type:Provider Instructions for Treatment How to access health informa tion online Indication:Hypertension, essential, benign Start:01-Nov-2014 Instruction Type:Patient Education How to access health informa tion online - Detail Indication:Hypertension, essential, benign Start:01-Nov-2014 Instruction Type:Patient Education Patient Instructions Indication:Hypertension, essential, benign Start:01-Nov-2014 Instruction Type:Provider Instructions for Treatment Patient Instructions Indication:Hypertension, essential, benign Start:04-Jan-2014 Instruction Type:Provider Instructions for Treatment How to access health informa tion online Indication:Hypertension, essential, benign Start:04-Jan-2014 Instruction Type:Patient Education How to access health informa tion online - Detail Indication:Hypertension, essential, benign Start:04-Jan-2014 Instruction Type:Patient Education obesity counseling Indication:BMI 38.0-38.9,adult Start:20-Dec-2012 Instruction Type:Provider Instructions for Treatment Patient Instructions Indication:Hypertension, essential, benign Start:20-Dec-2012 Instruction Type:Provider Instructions for Treatment Patient Instructions Indication:Obesity Start:24-Feb-2012 Instruction Type:Provider Instructions for Treatment Patient Instructions Indication:Obesity Start:07-Feb-2012 Instruction Type:Provider Instructions for Treatment Patient Instructions Indication:Obesity Start:25-Jan-2012 Instruction Type:Provider Instructions for Treatment Patient Instructionscont eat ing plan and exercise Indication:Obesity Start:13-Jan-2012 Instruction Type:Provider Instructions for Treatment Name Dates Details How to access health informa tion online Indication:BMI 34.0-34.9,adult Start:22-Sep-2018 Instruction Type:Patient Education How to access health informa tion online - Detail Indication:BMI 34.0-34.9,adult Start:22-Sep-2018 Instruction Type:Patient Education Patient Instructions Indication:BMI 34.0-34.9,adult Start:22-Sep-2018 Instruction Type:Provider Instructions for Treatment How to access health informa tion online Indication:Non-smoker Start:06-Sep-2018 Instruction Type:Patient Education How to access health informa tion online - Detail Indication:Non-smoker Start:06-Sep-2018 Instruction Type:Patient Education Patient Instructions Indication:Non-smoker Start:06-Sep-2018 Instruction Type:Provider Instructions for Treatment How to access health informa tion online Indication:BMI 36.0-36.9,adult Start:25-Aug-2018 Instruction Type:Patient Education How to access health informa tion online - Detail Indication:BMI 36.0-36.9,adult Start:25-Aug-2018 Instruction Type:Patient Education Patient Instructions Indication:BMI 36.0-36.9,adult Start:25-Aug-2018 Instruction Type:Provider Instructions for Treatment How to access health informa tion online Indication:BMI 38.0-38.9,adult Start:31-Jul-2018 Instruction Type:Patient Education How to access health informa tion online - Detail Indication:BMI 38.0-38.9,adult Start:31-Jul-2018 Instruction Type:Patient Education Patient Instructions Indication:BMI 38.0-38.9,adult Start:31-Jul-2018 Instruction Type:Provider Instructions for Treatment How to access health informa tion online Indication:Non-smoker Start:23-Jun-2018 Instruction Type:Patient Education How to access health informa tion online - Detail Indication:Non-smoker Start:23-Jun-2018 Instruction Type:Patient Education Patient Instructions Indication:Non-smoker Start:23-Jun-2018 Instruction Type:Provider Instructions for Treatment How to access health informa tion online Indication:Non-smoker Start:16-Jun-2018 Instruction Type:Patient Education How to access health informa tion online - Detail Indication:Non-smoker Start:16-Jun-2018 Instruction Type:Patient Education Patient Instructions Indication:Non-smoker Start:16-Jun-2018 Instruction Type:Provider Instructions for Treatment How to access health informa tion online Indication:Non-smoker Start:08-Nov-2017 Instruction Type:Patient Education How to access health informa tion online - Detail Indication:Non-smoker Start:08-Nov-2017 Instruction Type:Patient Education Patient Instructions Indication:Non-smoker Start:08-Nov-2017 Instruction Type:Provider Instructions for Treatment How to access health informa tion online Indication:BMI 36.0-36.9,adult Start:30-Sep-2017 Instruction Type:Patient Education How to access health informa tion online - Detail Indication:BMI 36.0-36.9,adult Start:30-Sep-2017 Instruction Type:Patient Education Patient Instructions Indication:BMI 36.0-36.9,adult Start:30-Sep-2017 Instruction Type:Provider Instructions for Treatment How to access health informa tion online Indication:BMI 37.0-37.9, adult Start:23-Aug-2017 Instruction Type:Patient Education How to access health informa tion online - Detail Indication:BMI 37.0-37.9, adult Start:23-Aug-2017 Instruction Type:Patient Education Patient Instructions Indication:BMI 37.0-37.9, adult Start:23-Aug-2017 Instruction Type:Provider Instructions for Treatment How to access health informa tion online Indication:BMI 35.0-35.9,adult Start:06-May-2017 Instruction Type:Patient Education How to access health informa tion online - Detail Indication:BMI 35.0-35.9,adult Start:06-May-2017 Instruction Type:Patient Education Patient Instructions Indication:BMI 35.0-35.9,adult Start:06-May-2017 Instruction Type:Provider Instructions for Treatment How to access health informa tion online Indication:BMI 36.0-36.9,adult Start:11-Mar-2017 Instruction Type:Patient Education How to access health informa tion online - Detail Indication:BMI 36.0-36.9,adult Start:11-Mar-2017 Instruction Type:Patient Education Patient Instructions Indication:BMI 36.0-36.9,adult Start:11-Mar-2017 Instruction Type:Provider Instructions for Treatment How to access health informa tion online Indication:Hypertension, essential, benign Start:07-Feb-2017 Instruction Type:Patient Education How to access health informa tion online - Detail Indication:Hypertension, essential, benign Start:07-Feb-2017 Instruction Type:Patient Education Patient Instructions Indication:Hypertension, essential, benign Start:07-Feb-2017 Instruction Type:Provider Instructions for Treatment How to access health informa tion online Indication:Flu-like symptoms Start:02-Jun-2016 Instruction Type:Patient Education How to access health informa tion online - Detail Indication:Flu-like symptoms Start:02-Jun-2016 Instruction Type:Patient Education Patient Instructions Indication:Flu-like symptoms Start:02-Jun-2016 Instruction Type:Provider Instructions for Treatment Patient Instructions Indication:Depression, acute Start:21-May-2016 Instruction Type:Provider Instructions for Treatment Patient Instructions Indication:Depression, acute Start:07-Apr-2016 Instruction Type:Provider Instructions for Treatment How to access health informa tion online Indication:Left upper quadrant abdominal tenderness Start:29-Sep-2015 Instruction Type:Patient Education How to access health informa tion online - Detail Indication:Left upper quadrant abdominal tenderness Start:29-Sep-2015 Instruction Type:Patient Education Patient Instructions Indication:Left upper quadrant abdominal tenderness Start:29-Sep-2015 Instruction Type:Provider Instructions for Treatment How to access health informa tion online Indication:Hypertension, essential, benign Start:01-Nov-2014 Instruction Type:Patient Education How to access health informa tion online - Detail Indication:Hypertension, essential, benign Start:01-Nov-2014 Instruction Type:Patient Education Patient Instructions Indication:Hypertension, essential, benign Start:01-Nov-2014 Instruction Type:Provider Instructions for Treatment Patient Instructions Indication:Hypertension, essential, benign Start:04-Jan-2014 Instruction Type:Provider Instructions for Treatment How to access health informa tion online Indication:Hypertension, essential, benign Start:04-Jan-2014 Instruction Type:Patient Education How to access health informa tion online - Detail Indication:Hypertension, essential, benign Start:04-Jan-2014 Instruction Type:Patient Education obesity counseling Indication:BMI 38.0-38.9,adult Start:20-Dec-2012 Instruction Type:Provider Instructions for Treatment Patient Instructions Indication:Hypertension, essential, benign Start:20-Dec-2012 Instruction Type:Provider Instructions for Treatment Patient Instructions Indication:Obesity Start:24-Feb-2012 Instruction Type:Provider Instructions for Treatment Patient Instructions Indication:Obesity Start:07-Feb-2012 Instruction Type:Provider Instructions for Treatment Patient Instructions Indication:Obesity Start:25-Jan-2012 Instruction Type:Provider Instructions for Treatment Patient Instructionscont eat ing plan and exercise Indication:Obesity Start:13-Jan-2012 Instruction Type:Provider Instructions for Treatment Name Dates Details Non-smoker : How to access h ealth information online Indication:Non-smoker Non-smoker : How to access h ealth information online - Detail Indication:Non-smoker Non-smoker : Patient Instruc tions Indication:Non-smoker BMI 36.0-36.9,adult : How to access health information online Indication:BMI 36.0-36.9,adult BMI 36.0-36.9,adult : How to access health information online - Detail Indication:BMI 36.0-36.9,adult BMI 36.0-36.9,adult : Patien t Instructions Indication:BMI 36.0-36.9,adult BMI 37.0-37.9, adult : How t o access health information online Indication:BMI 37.0-37.9, adult BMI 37.0-37.9, adult : How t o access health information online - Detail Indication:BMI 37.0-37.9, adult BMI 37.0-37.9, adult : Patie nt Instructions Indication:BMI 37.0-37.9, adult BMI 35.0-35.9,adult : How to access health information online Indication:BMI 35.0-35.9,adult BMI 35.0-35.9,adult : How to access health information online - Detail Indication:BMI 35.0-35.9,adult BMI 35.0-35.9,adult : Patien t Instructions Indication:BMI 35.0-35.9,adult Hypertension, essential, elise ign : How to access health information online Indication:Hypertension, essential, benign Hypertension, essential, elise ign : How to access health information online - Detail Indication:Hypertension, essential, benign Hypertension, essential, elise ign : Patient Instructions Indication:Hypertension, essential, benign Flu-like symptoms : How to a ccess health information online Indication:Flu-like symptoms Flu-like symptoms : How to a ccess health information online - Detail Indication:Flu-like symptoms Flu-like symptoms : Patient Instructions Indication:Flu-like symptoms Depression, acute : Patient Instructions Indication:Depression, acute Left upper quadrant abdomina l tenderness : How to access health information online Indication:Left upper quadrant abdominal tenderness Left upper quadrant abdomina l tenderness : How to access health information online - Detail Indication:Left upper quadrant abdominal tenderness Left upper quadrant abdomina l tenderness : Patient Instructions Indication:Left upper quadrant abdominal tenderness BMI 38.0-38.9,adult : obesit y counseling Indication:BMI 38.0-38.9,adult Obesity : Patient Instructio ns Indication:Obesity Obesity : Patient Instructio nscont eating plan and exercise Indication:Obesity Name Dates Details How to access health informa tion online Indication:Weight gain Start:14-Feb-2019 Instruction Type:Patient Education How to access health informa tion online - Detail Indication:Weight gain Start:14-Feb-2019 Instruction Type:Patient Education Patient Instructions Indication:Weight gain Start:14-Feb-2019 Instruction Type:Provider Instructions for Treatment How to access health informa tion online Indication:BMI 34.0-34.9,adult Start:22-Sep-2018 Instruction Type:Patient Education How to access health informa tion online - Detail Indication:BMI 34.0-34.9,adult Start:22-Sep-2018 Instruction Type:Patient Education Patient Instructions Indication:BMI 34.0-34.9,adult Start:22-Sep-2018 Instruction Type:Provider Instructions for Treatment How to access health informa tion online Indication:Non-smoker Start:06-Sep-2018 Instruction Type:Patient Education How to access health informa tion online - Detail Indication:Non-smoker Start:06-Sep-2018 Instruction Type:Patient Education Patient Instructions Indication:Non-smoker Start:06-Sep-2018 Instruction Type:Provider Instructions for Treatment How to access health informa tion online Indication:BMI 36.0-36.9,adult Start:25-Aug-2018 Instruction Type:Patient Education How to access health informa tion online - Detail Indication:BMI 36.0-36.9,adult Start:25-Aug-2018 Instruction Type:Patient Education Patient Instructions Indication:BMI 36.0-36.9,adult Start:25-Aug-2018 Instruction Type:Provider Instructions for Treatment How to access health informa tion online Indication:BMI 38.0-38.9,adult Start:31-Jul-2018 Instruction Type:Patient Education How to access health informa tion online - Detail Indication:BMI 38.0-38.9,adult Start:31-Jul-2018 Instruction Type:Patient Education Patient Instructions Indication:BMI 38.0-38.9,adult Start:31-Jul-2018 Instruction Type:Provider Instructions for Treatment How to access health informa tion online Indication:Non-smoker Start:23-Jun-2018 Instruction Type:Patient Education How to access health informa tion online - Detail Indication:Non-smoker Start:23-Jun-2018 Instruction Type:Patient Education Patient Instructions Indication:Non-smoker Start:23-Jun-2018 Instruction Type:Provider Instructions for Treatment How to access health informa tion online Indication:Non-smoker Start:16-Jun-2018 Instruction Type:Patient Education How to access health informa tion online - Detail Indication:Non-smoker Start:16-Jun-2018 Instruction Type:Patient Education Patient Instructions Indication:Non-smoker Start:16-Jun-2018 Instruction Type:Provider Instructions for Treatment How to access health informa tion online Indication:Non-smoker Start:08-Nov-2017 Instruction Type:Patient Education How to access health informa tion online - Detail Indication:Non-smoker Start:08-Nov-2017 Instruction Type:Patient Education Patient Instructions Indication:Non-smoker Start:08-Nov-2017 Instruction Type:Provider Instructions for Treatment How to access health informa tion online Indication:BMI 36.0-36.9,adult Start:30-Sep-2017 Instruction Type:Patient Education How to access health informa tion online - Detail Indication:BMI 36.0-36.9,adult Start:30-Sep-2017 Instruction Type:Patient Education Patient Instructions Indication:BMI 36.0-36.9,adult Start:30-Sep-2017 Instruction Type:Provider Instructions for Treatment How to access health informa tion online Indication:BMI 37.0-37.9, adult Start:23-Aug-2017 Instruction Type:Patient Education How to access health informa tion online - Detail Indication:BMI 37.0-37.9, adult Start:23-Aug-2017 Instruction Type:Patient Education Patient Instructions Indication:BMI 37.0-37.9, adult Start:23-Aug-2017 Instruction Type:Provider Instructions for Treatment How to access health informa tion online Indication:BMI 35.0-35.9,adult Start:06-May-2017 Instruction Type:Patient Education How to access health informa tion online - Detail Indication:BMI 35.0-35.9,adult Start:06-May-2017 Instruction Type:Patient Education Patient Instructions Indication:BMI 35.0-35.9,adult Start:06-May-2017 Instruction Type:Provider Instructions for Treatment How to access health informa tion online Indication:BMI 36.0-36.9,adult Start:11-Mar-2017 Instruction Type:Patient Education How to access health informa tion online - Detail Indication:BMI 36.0-36.9,adult Start:11-Mar-2017 Instruction Type:Patient Education Patient Instructions Indication:BMI 36.0-36.9,adult Start:11-Mar-2017 Instruction Type:Provider Instructions for Treatment How to access health informa tion online Indication:Hypertension, essential, benign Start:07-Feb-2017 Instruction Type:Patient Education How to access health informa tion online - Detail Indication:Hypertension, essential, benign Start:07-Feb-2017 Instruction Type:Patient Education Patient Instructions Indication:Hypertension, essential, benign Start:07-Feb-2017 Instruction Type:Provider Instructions for Treatment How to access health informa tion online Indication:Flu-like symptoms Start:02-Jun-2016 Instruction Type:Patient Education How to access health informa tion online - Detail Indication:Flu-like symptoms Start:02-Jun-2016 Instruction Type:Patient Education Patient Instructions Indication:Flu-like symptoms Start:02-Jun-2016 Instruction Type:Provider Instructions for Treatment Patient Instructions Indication:Depression, acute Start:21-May-2016 Instruction Type:Provider Instructions for Treatment Patient Instructions Indication:Depression, acute Start:07-Apr-2016 Instruction Type:Provider Instructions for Treatment How to access health informa tion online Indication:Left upper quadrant abdominal tenderness Start:29-Sep-2015 Instruction Type:Patient Education How to access health informa tion online - Detail Indication:Left upper quadrant abdominal tenderness Start:29-Sep-2015 Instruction Type:Patient Education Patient Instructions Indication:Left upper quadrant abdominal tenderness Start:29-Sep-2015 Instruction Type:Provider Instructions for Treatment How to access health informa tion online Indication:Hypertension, essential, benign Start:01-Nov-2014 Instruction Type:Patient Education How to access health informa tion online - Detail Indication:Hypertension, essential, benign Start:01-Nov-2014 Instruction Type:Patient Education Patient Instructions Indication:Hypertension, essential, benign Start:01-Nov-2014 Instruction Type:Provider Instructions for Treatment Patient Instructions Indication:Hypertension, essential, benign Start:04-Jan-2014 Instruction Type:Provider Instructions for Treatment How to access health informa tion online Indication:Hypertension, essential, benign Start:04-Jan-2014 Instruction Type:Patient Education How to access health informa tion online - Detail Indication:Hypertension, essential, benign Start:04-Jan-2014 Instruction Type:Patient Education obesity counseling Indication:BMI 38.0-38.9,adult Start:20-Dec-2012 Instruction Type:Provider Instructions for Treatment Patient Instructions Indication:Hypertension, essential, benign Start:20-Dec-2012 Instruction Type:Provider Instructions for Treatment Patient Instructions Indication:Obesity Start:24-Feb-2012 Instruction Type:Provider Instructions for Treatment Patient Instructions Indication:Obesity Start:07-Feb-2012 Instruction Type:Provider Instructions for Treatment Patient Instructions Indication:Obesity Start:25-Jan-2012 Instruction Type:Provider Instructions for Treatment Patient Instructionscont eat ing plan and exercise Indication:Obesity Start:13-Jan-2012 Instruction Type:Provider Instructions for Treatment Summary Purpose Advance Directives No Advanced Directives Records Found Advance Directive Response Recorded Date/ Time Advance Directives No October 30 6:52am Living Will No February 02, 2022 6:41am Power of Telegraph Plant Maintainer No January 6:41am Advance Directive Response Recorded Date/ Time Advance Directives No October 30 5:52am Living Will No December 15, 2022 1:04pm Power of [employer] Plant Maintainer No December 15 1:04pm Advance Directive Response Recorded Date/ Time Advance Directives No October 30 6:52am Living Will No December 15, 2022 2:04pm Power of [employer] Plant Maintainer No December 15 2:04pm Advance Directive Response Recorded Date/ Time Advance Directives No October 30 6:52am Living Will No September 11, 2023 12:10pm Power of [employer] Plant Maintainer No September 10 12:10pm Advance Directive Response Recorded Date/ Time Advance Directives No October 30 6:52am Chief Complaint and Reason for Visit Chief Complaint LOWER EXTREMITY Chief Complaint 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 Complex tear of medial meniscus, current injury, l Chief Complaint PREPROCEDURAL PREPROCEDURAL Complex tear of medial meniscus, current injury, l S/O INR DRAW Chief Complaint PREPROCEDURAL PREPROCEDURAL Complex tear of medial meniscus, current injury, l S/O INR DRAW S/O INR DRAW flank pain Chief Complaint Admit Date LABS December 31, 2024 3: 06pm Chief Complaint Admit Date LABS December 31, 2024 3: 06pm NEEDS ORDER January 18, 2025 2:10pm Chief Complaint Admit Date LABS December 31, 2024 3: 06pm NEEDS ORDER January 18, 2025 2:10pm LABS February 01, 2025 3:07pm Reason for Referral Specialty Diagnoses / Procedures Referred By Contac t Referred To Contact Radiology Diagnoses Multiple fractures of ribs, bilateral, initial encounter for closed fracture Rib pain Procedures XR chest 2 views Maribell Lucio, ASSISTANT ASSOCIATE PROFESSOR-DIRECTOR OF MEDICAL EDUCATION [address] [facility], [address] [place] [phone] Referral ID Status Reason Start Date Expiration Date Visits Requested Visits Authorized [id number] Authorized Perform Procedure 02/11/2023 08/10/2023 1 1 Specialty Diagnoses / Procedures Referred By Marisela t Referred To Contact Orthopaedic Surgery Diagnoses Multiple fractures of ribs, bilateral, initial encounter for closed fracture Rib pain Maribell Lucio, ASSISTANT ASSOCIATE PROFESSOR-DIRECTOR OF MEDICAL EDUCATION [address] [facility], [address] [place] [phone] Ryan Langston MD [address] [place] [address] Referral ID Status Reason Start Date Expiration Date Visits Requested Visits Authorized [id number] Pending Review Specialty Services Required 02/11/2023 08/10/2023 1 1 Additional Source Comments INFORMATION SOURCE (unrecogn ized section and content) DATE CREATED AUTHOR 10/03/2018 [facility] DATE CREATED AUTHOR AUTHOR'S ORGANIZ ATION 12/03/2018 [facility] DATE CREATED AUTHOR AUTHOR'S ORGANIZ ATION 02/18/2023 [facility] DATE CREATED AUTHOR AUTHOR'S ORGANIZ ATION 02/18/2023 [facility] DATE CREATED AUTHOR AUTHOR'S ORGANIZ ATION 07/17/2024 [facility] DATE CREATED AUTHOR AUTHOR'S ORGANIZ ATION 02/28/2025 [facility] Goals (unrecognized section and content) Goals may be documented in a n alternate sectionGoals may be documented in an alternate sectionGoals may be documented in an alternate sectionGoals may be documented in an alternate sectionGoals may be documented in an alternate sectionGoals may be documented in an alternate sectionGoals may be documented in an alternate sectionGoals may be documented in an alternate sectionGoals may be documented in an alternate sectionGoals may be documented in an alternate section Reason for Visit (unrecogniz ed section and content) Reason Comments Chest Injury 2 week Shortness of Breath Specialty Diagnoses / Procedures Referred By Contac t Referred To Contact Primary Care Procedures Follow Up In Primary Care - Health Maintenance Maribell Lucio APRN-CNP [address] [facility], [facility] [address] [place] [phone] Referral ID Status Reason Start Date Expiration Date V isits Requested Visits Authorized [id number] Authorized 01/28/2023 07/27/2023 1 1 Reason Comments Establish Care Lung/rib pain Fell on 12/13 Reason Comments Chest Injury 1 month follow-up - is still having pain Referral ID Status Reason Start Date Expiration Date V isits Requested Visits Authorized [id number] Authorized 12/28/2022 06/26/2023 1 1 Reason Comments Consult Left Breast biopsy c onsult Specialty Diagnoses / Procedures Referred By Contac t Referred To Contact GENERAL SURGERY Diagnoses Breast consult Procedures Breast consult Ivon Lopez, DO [address] [place] [address] [facility] [address] [place] [address] Referral ID Status Reason Start Date Expiration Date V isits Requested Visits Authorized [id number] Closed Financial Clearance Required - OON Payor Patient Cleared - [place] 04/18/2024 06/17/2024 1 1 Reason Comments Patient Question Orders Diagnostic mammogram Care Teams (unrecognized sec tion and content) Butcher Assistant Relationship Specialty Start Date End Date Maribell Lucio APRN-CNP [address] [facility], [place] [phone] PCP - General Family Medicine 12/28/22 Butcher Assistant Relationship Specialty Start Date End Date Maribell Lucio APRN-CNP [address] [facility], [address] [place] [address] PCP - General Family Medicine 12/28/22 Butcher Assistant Relationship Specialty Start Date End Date Maribell Lucio, ASSISTANT ASSOCIATE PROFESSOR-DIRECTOR OF MEDICAL EDUCATION [address] [facility], [address] [place] [address] PCP - General Family Medicine 12/28/22 Team Status: Active Member Role Status Dates Dr. Ivon Lopez DO Family Provider Active Dr. Ivon Lopez DO Primary Care Provider Active Team Status: Active Member Role Status Dates Dr. Ivon Lopez DO Primary Care Provider Active Dr. Robby Mancera MD Attending Provider Active Prakash GONCALVES PA-C Referring Provider Active Team Status: Inactive Member Role Status Dates LIDA ChristieC Attending Provider, Referring Pr ovider Active Dr. Ivon Lopez DO Primary Care Provider Active Team Status: Active Member Role Status Dates Dr. Ivon Lopez DO Primary Care Provider Active Dr. Phuc Mast MD Attending Provider Active Team Status: Inactive Member Role Status Dates Dr. Ivon Lopez DO Primary Care Provider Active IVANNA White Attending Provider, Referring Pr ovider Active Team Status: Active Member Role Status Dates Dr. Ivon Lopez DO Primary Care Provider Active Dr. Phuc Mast MD Attending Provider Active Fili Patel Referring Provider Active Team Status: Inactive Member Role Status Dates Dr. Ivon Lopez DO Primary Care Pr ovider, Attending Provider, Referring Provider Active Team Status: Active Member Role Status Dates Dr. Ivon Lopez DO Primary Care Pr ovider, Attending Provider, Referring Provider Active Team Status: Inactive Member Role Status Dates Dr. Ivon Lopez DO Primary Care Provider Active Dr. Trey Kern , DO Emergency Provider Active Butcher Assistant Relationship Specialty Start Date End Date Ivon Lopez DO [address] [facility] [address] [place] [address] PCP - General Internal Medicine 12/11/24 Edna Myers MD [address] [place] [address] 07/27/16 Butcher Assistant Relationship Specialty Start Date End Date Ivon Lopez DO [address] [place] [id number] PCP - General Internal Medicine 04/25/24 Edna Myers MD [address] [place] [address] 07/27/16 Team Status: Active Member Role/Relationship Status Dates Dr. Ivon Lopez DO Primary Care Provider Active Team Status: Inactive Member Role/Relationship Status Dates Dr. Ivon Lopez DO Primary Care Provider Active Start: December 31, 2024 End: December 31, 2024 Dr. Ivon Lopez DO Attending Provider Active Start: December 31, 2024 End: December 31, 2024 Dr. Ivon Lopez DO Referring Provider Active Start: December 31, 2024 End: December 31, 2024 Team Status: Inactive Member Role/Relationship Status Dates Dr. Ivon Lopez DO Primary Care Provider Active Start: January 10, 2025 End: January 10, 2025 Dr. Ivon Lopez DO Attending Provider Active Start: January 10, 2025 End: January 10, 2025 Dr. Ivon Lopez DO Referring Provider Active Start: January 10, 2025 End: January 10, 2025 Team Status: Inactive Member Role/Relationship Status Dates Dr. Ivon Lopez DO Primary Care Provider Active Start: January 18, 2025 End: January 18, 2025 Dr. Ivon Lopez DO Attending Provider Active Start: January 18, 2025 End: January 18, 2025 Dr. Ivon Lopez DO Referring Provider Active Start: January 18, 2025 End: January 18, 2025 Team Status: Active Member Role/Relationship Status Dates Dr. Ivon Lopez DO Primary care physician Active Team Status: Inactive Member Role/Relationship Status Dates Dr. Ivon Lopez DO Primary care physician Active Start: December 31, 2024 End: December 31, 2024 Dr. Ivon Lopez DO Attending physician Active Start: December 31, 2024 End: December 31, 2024 Dr. Ivon Lopez DO Referring Provider Active Start: December 31, 2024 End: December 31, 2024 Team Status: Inactive Member Role/Relationship Status Dates Dr. Ivon Lopez DO Primary care physician Active Start: January 10, 2025 End: January 10, 2025 Dr. Ivon Lopez DO Attending physician Active Start: January 10, 2025 End: January 10, 2025 Dr. Ivon Lopez DO Referring Provider Active Start: January 10, 2025 End: January 10, 2025 Team Status: Inactive Member Role/Relationship Status Dates Dr. Ivon Lopez DO Primary care physician Active Start: January 18, 2025 End: January 18, 2025 Dr. Ivon Lopez DO Attending physician Active Start: January 18, 2025 End: January 18, 2025 Dr. Ivon Lopez DO Referring Provider Active Start: January 18, 2025 End: January 18, 2025 Team Status: Inactive Member Role/Relationship Status Dates Dr. Ivon Lopez DO Primary care physician Active Start: February 01, 2025 End: February 01, 2025 Dr. Ivon Lopez DO Attending physician Active Start: February 01, 2025 End: February 01, 2025 Dr. Ivon Lopez DO Referring Provider Active Start: February 01, 2025 End: February 01, 2025 Source Comments (unrecognize d section and content) In the event this informatio n is protected by the Federal Confidentiality of Alcohol and Drug Abuse Patient Records regulations: The Federal rules restrict any use of the information to criminally investigate or prosecute any alcohol or drug abuse patient.[facility] the event this information is protected by the Federal Confidentiality of Alcohol and Drug Abuse Patient Records regulations: The Federal rules restrict any use of the information to criminally investigate or prosecute any alcohol or drug abuse patient.[facility] FOR RECORDS PERTAINING TO PATIENTS WHO ARE OR HAVE BEEN ENROLLED IN A CHEMICAL DEPENDENCY/SUBSTANCEABUSE PROGRAM, SOME INFORMATION MAY BE OMITTED. This clinical summary was aggregated from multiple sources. Caution should be exercised in using it in the provision of clinical care. This summary normalizes information from multiple sources, and as a consequence, information in this document may materially change the coding, format and clinical context of patient data. In addition, data may be omitted in some cases. CLINICAL DECISIONS SHOULD BE BASED ON THE PRIMARY CLINICAL RECORDS. [facility] [employer] [facility]. provides no warranty or guarantee of the accuracy or completeness of information in this document.
== END | disposition home or self-care (01) ==
PROVIDERS: PCP Internal Medicine; Referring Provider Internal Medicine; Visit Provider Internal Medicine
DX: R31.9 Hematuria, unspecified (principal)
CPT/HCPCS: 74176